=== PATIENT | female | born 1935 | race Caucasian/White ===

== ENCOUNTER → 2020-07-10 13:22 | Outpatient (BNVA) | payer BC, SELFPAY | PROVIDERS: PCP Internal Medicine; Referring Provider Internal Medicine; Visit Provider Internal Medicine | DX: Z76.89 Persons encountering health services in other specified circumstances (principal) ==

== ENCOUNTER → 2020-09-03 10:24 | Outpatient (BNVA) | payer BC, SELFPAY | PROVIDERS: PCP Internal Medicine; Visit Provider Internal Medicine | DX: Z76.89 Persons encountering health services in other specified circumstances (principal) ==

== ENCOUNTER → 2020-09-17 15:01 | Outpatient (BNVA) | payer BC, SELFPAY | PROVIDERS: PCP Internal Medicine; Visit Provider Internal Medicine ==

== ENCOUNTER 2020-09-21 10:13 | Outpatient (REF) | payer BC, SELFPAY ==
[2020-09-21 12:20] LABS: Alanine Aminotransferase 20 U/L (0-31); Albumin Level 3.6 g/dL (3.5-5.0); Alkaline Phosphatase 49 U/L (39-117); Anion Gap 15 (12-20); Aspartate Amino Transferase 25 U/L (5-31); Bilirubin Total 0.5 mg/dL (0.0-1.0); Blood Urea Nitrogen 24 mg/dL (9-16); Calcium 8.5 mg/dL (8.4-10.2); Carbon Dioxide 21 mmol/L (22-29); Chloride 108 mmol/L (96-108); Estimated Glomerular Filt Rate 48; Glucose Random 111 mg/dL (60-115); Potassium 4.7 mmol/L (3.3-5.1); Sodium 139 mmol/L (135-145); Total Protein 6.1 g/dL (6.5-8.0)
[2020-09-26 09:32] LABS: Vitamin D 25-OH, D2 <4 ng/mL; Vitamin D 25-OH, D3 58 ng/mL; Vitamin D 25-OH, Total 58 ng/mL (30-100)
== END 2020-09-21 10:14 | disposition home or self-care (01) ==
LOC: HO.LAB 10:13
PROVIDERS: PCP Internal Medicine; Visit Provider Student in an Organized Health Care Education/Training Program
DX: M81.0 Age-related osteoporosis without current pathological fracture (principal); M89.49 Other hypertrophic osteoarthropathy, multiple sites; Z88.8 Allergy status to other drugs, medicaments and biological substances; Z88.0 Allergy status to penicillin; Z88.2 Allergy status to sulfonamides; Z87.891 Personal history of nicotine dependence; Z79.899 Other long term (current) drug therapy
CPT/HCPCS: 20610; 36415; 80053; 82306

== ENCOUNTER 2020-11-13 11:14 | Outpatient (REF) | payer BC, SELFPAY ==
[2020-11-13 14:04] LABS: Hematocrit 30.6 % (37-47); Mean Corpuscular HGB Conc 32.7 g/dl (31.0-35.0); Mean Corpuscular Hemoglobin 30.3 pg (27.0-33.0); Mean Corpuscular Volume 92.7 fL (80-98); Platelet Count 283 X10*3/uL (160-400); Red Cell Distribution Width 13.7 % (11.0-16.0); White Blood Count 6.5 X10*3/uL (4.8-10.8)
[2020-11-13 15:01] LABS: Alanine Aminotransferase 20 U/L (0-31); Albumin Level 3.9 g/dL (3.5-5.0); Alkaline Phosphatase 52 U/L (39-117); Anion Gap 15 (12-20); Aspartate Amino Transferase 24 U/L (5-31); Bilirubin Direct < 0.2 mg/dL (0.0-0.5); Bilirubin Total 0.3 mg/dL (0.0-1.0); Blood Urea Nitrogen 26 mg/dL (9-16); Calcium 8.6 mg/dL (8.4-10.2); Carbon Dioxide 22 mmol/L (22-29); Chloride 106 mmol/L (96-108); Estimated Glomerular Filt Rate 50; Glucose Random 103 mg/dL (60-115); Potassium 4.7 mmol/L (3.3-5.1); Sodium 138 mmol/L (135-145); Total Protein 6.4 g/dL (6.5-8.0)
[2020-11-13 15:12] LABS: Thyroid Stimulating Hormone 1.55 uIU/mL (0.32-4.0)
== END 2020-11-13 11:15 | disposition home or self-care (01) ==
LOC: HO.10HDL 11:14
PROVIDERS: Visit Provider Internal Medicine
DX: I10 Essential (primary) hypertension (principal)
CPT/HCPCS: 36415; 80048; 80076; 84443; 85027

== ENCOUNTER 2020-11-22 08:12 | Inpatient (IN) | payer BC, SELFPAY ==
[2020-11-22] VITALS (11 sets, daily range): BP systolic 97–129; BP diastolic 28–61; PULSE 76–91; RESP 15–28; TEMP 36.5–36.8; O2SAT 86–100; BMI 33.3
--- NOTE | 2020-11-22 | ECG_ITS ---
Test Reason : CHEST PAIN Blood Pressure : / mmHG Vent. Rate : 091 BPM Atrial Rate : 091 BPM P-R Int : 200 ms QRS Dur : 118 ms QT Int : 374 ms P-R-T Axes : 046 -20 150 degrees QTc Int : 460 ms Normal sinus rhythm with sinus arrhythmia Septal infarct , age undetermined Marked ST abnormality, possible inferolateral subendocardial injury Abnormal ECG No previous ECGs available Referred By: Mayda Flynn Electronically Signed By:OLMAN ELMORE MD
--- NOTE | ~2020-11-22 | CT_ITS ---
EXAMINATION: CT ANGIOGRAM OF THE CHEST WITH AND WITHOUT CONTRAST (CT PULMONARY ANGIOGRAM FOR PE) CLINICAL INFORMATION: Reason for Exam chest pain radiating to back/sob/miner/lower extremity edema COMPARISON: None TECHNIQUE: Prior to contrast administration, noncontrast localization images were obtained. Subsequently, multidetector volumetric imaging was performed from the thoracic inlet to below the diaphragms following the administration of 80 mL Omnipaque 350 intravenous contrast. No contrast reaction reported Sagittal, coronal, and MIP oblique sagittal reformatted images were obtained on the CT workstation, uploaded to PACS, and reviewed. This CT examination was performed using dose optimization techniques as appropriate, variously including the following: *Automated exposure control *Adjustment of mA and/or kV according to patient size (this includes techniques or standardized protocols for targeted exams where dose is matched to indication/reason for exam; i.e. extremities or head) *Use of iterative reconstruction technique Total exam dose-length product 420 mGy-cm FINDINGS: QUALITY OF STUDY/CONTRAST BOLUS: Satisfactory. PULMONARY ARTERIES: No central or segmental pulmonary emboli. THORACIC AORTA: No aneurysm or dissection. LUNG: There is a patchy opacity left upper lobe and bilateral dependent lower lobes likely infiltrate and/or atelectasis. PLEURA: There are small bilateral pleural effusions. MEDIASTINUM: The heart size and the great vessels are normal caliber. No abnormal size mediastinal lymph nodes. The central trachea and the bronchi widely patent. No pericardial effusion seen. No evidence of septal bowing or right heart strain. CHEST WALL/AXILLA: No axillary or internal mammary lymphadenopathy. OSSEOUS STRUCTURES: There are degenerative disc changes at T7-T8 disc level with calcified disc. Mild compression deformities T7, T8 and augmented T12 vertebra for compression fractures are noted. No lytic process seen. UPPER ABDOMEN: Visualized liver, spleen, mildly distended gallbladder and spleen are unremarkable. There is a radiopaque gravel in the dependent portion. No reflux of contrast into the hepatic veins to suggest elevated right heart pressures. CT/CT angio chest PE protocol IMPRESSION: No evidence of PE. No evidence aortic dissection or aneurysm. Bilateral small pleural effusion with underlying atelectasis/infiltrate. There is a developing left upper lobe small infiltrate as well. VTE: negative
--- NOTE | ~2020-11-22 | XR_ITS ---
EXAMINATION: XR CHEST CLINICAL INFORMATION: Dyspnea COMPARISON: 09/18/2012 TECHNIQUE: Frontal view of the chest was obtained. FINDINGS: Lung volumes are low. Streaky opacities are seen bilaterally. Patchy left basilar opacity. No pleural effusion or pneumothorax. The cardiomediastinal silhouette is within normal limits for this technique. XR/XR chest 1V IMPRESSION: Lung volumes are low which limits the evaluation. Streaky bilateral opacities are nonspecific and may represent atelectasis, although a small airways process could have this appearance. There is no dense consolidation.
--- NOTE | 2020-11-22 09:47 | ECG_ITS ---
Test Reason : DIFF BREATHING Blood Pressure : / mmHG Vent. Rate : 088 BPM Atrial Rate : 088 BPM P-R Int : 184 ms QRS Dur : 110 ms QT Int : 380 ms P-R-T Axes : 030 -12 044 degrees QTc Int : 459 ms Normal sinus rhythm Nonspecific ST abnormality Abnormal ECG When compared with ECG of 16-DEC-2017 08:29, No significant change was found Referred By: Generic ED Physician Electronically Signed By:Yousif Palacios
[2020-11-22 10:04] LABS: MANUAL DIFF FLAG NO
[2020-11-22 10:06] LABS: Basophils Percent Auto 0.5 % (0-2); Eosinophils Absolute Auto 0.2 X10*3/uL (0.0-0.4); Eosinophils Percent Auto 3.2 % (0-4); Hematocrit 26.7 % (37-47); Hemoglobin 8.9 g/dl (12.0-16.0); Imm Gran Abs Auto 0.02 X10*3/uL (0.00-0.03); Imm Gran Pct Auto 0.3 % (0.0-0.4); Lymphocytes Percent Auto 13.1 % (20-40); Mean Corpuscular HGB Conc 33.3 g/dl (31.0-35.0); Mean Corpuscular Volume 89.9 fL (80-98); Mean Platelet Volume 9.7 fL (9.4-12.3); Monocytes Absolute Auto 0.7 X10*3/uL (0.1-1.2); Monocytes Percent Auto 9.6 % (2-11); Neutrophils Absolute Auto 5.6 X10*3/uL (2.0-8.3); Neutrophils Percent Auto 73.3 % (45-73); Platelet Count 285 X10*3/uL (160-400); Red Blood Count 2.97 X10*6/uL (4.20-5.50); Red Cell Distribution Width 13.1 % (11.0-16.0); White Blood Count 7.6 X10*3/uL (4.8-10.8)
[2020-11-22 10:19] LABS: INTERNATIONAL NORM RATIO 1.1 (0.9-1.1); Prothrombin Time 13.4 SEC (10.8-13.0)
[2020-11-22 10:38] LABS: Alanine Aminotransferase 21 U/L (0-31); Albumin Level 3.5 g/dL (3.5-5.0); Alkaline Phosphatase 66 U/L (39-117); Anion Gap 14 (12-20); Aspartate Amino Transferase 29 U/L (5-31); Bilirubin Direct 0.3 mg/dL (0.0-0.5); Bilirubin Total 0.5 mg/dL (0.0-1.0); Blood Urea Nitrogen 15 mg/dL (9-16); Calcium 7.7 mg/dL (8.4-10.2); Carbon Dioxide 23 mmol/L (22-29); Chloride 96 mmol/L (96-108); Creatinine Clr Calc Pharmacy 56.8; Estimated Glomerular Filt Rate > 60; Glucose Random 128 mg/dL (60-115); Magnesium 2.1 mg/dL (1.6-2.6); Potassium 4.8 mmol/L (3.3-5.1); Sodium 128 mmol/L (135-145); Total Protein 5.7 g/dL (6.5-8.0)
--- NOTE | 2020-11-22 10:52 | PC.NURSE ---
[facility] NUMBER IF ANY QUESTIONS OR UPDATES
[2020-11-22 10:54] LABS: B Type Natriuretic Peptide 1562 pg/mL (<100); Troponin-I High Sensitivity 2023.3 ng/L (<3.5-17.0)
[2020-11-22 11:05] LABS: Influenza A PCR NEGATIVE (Negative); Influenza B PCR NEGATIVE (Negative); Resp Syncy Virus RNA Qual PCR NEGATIVE (Negative); SARS COV2 PCR INHOUSE NEGATIVE (Negative)
--- NOTE | 2020-11-22 11:34 | ED_ITS ---
HPI - SOB/Dyspnea General Chief Complaint: Dyspnea Stated Complaint: difficulty breathing Time Seen by Provider: 11/22/20 09:29 Source: patient Mode of arrival: ambulatory Limitations: other (Poor historian) History of Present Illness HPI Narrative: 85-year-old female with a past medical history of benign essential hypertension, asthma/COPD, laryngitis, allergic rhinitis, osteoporosis and spinal stenosis who is status post lumbar spinal surgery performed by Dr.Frederik Munguia at [facility] on 11/16/2020 presenting to the ED with complaints shortness of breath, dyspnea on exertion, orthopnea with ass ociated productive cough with clear color sputum, body aches, chills, intermittent headaches and midsternal chest pain where she reports it is tight in sensation for the past few days worse today. Patient cannot specify if all of the symptoms she has at this time started prior or after her surgery on Thursday. Patient denies any fevers, dizziness, lightheadedness, current headache at this time, neck pain/stiffness, runny nose/nasal congestion, sore throat, palpitations, nausea/vomiting, abdominal pain, diarrhea or constipation or any other symptoms complaints or concerns at this time. Denies recent travel or sick contacts. MD elicited complaint: shortness of breath, cough, pain with inspiration and chest pain Pertinent past history: COPD and asthma Onset (ago): unknown Context: other (Recent lumbar surgery at [facility] on 11/16/2020) Timing: constant and progressively worsening Severity: severe Exacerbating factors: lying flat, exertion, movement, coughing, inspiration, talking and deep breaths Relieving factors: nothing Known history of: COPD and asthma Associated symptoms: chest pain, pain with inspiration, cough, sputum production, orthopnea, chest congestion and other Treatment prior to arrival: none Related Data Home oxygen amount: none Home Medications Medication Instructions Recorded Confirmed Lactobacillus acidophilus 5 mg PO DAILY 07/10/20 11/22/20 amitriptyline 10 mg tablet 10 mg PO BEDTIME 07/10/20 11/22/20 anastrozole 1 mg tablet 1 mg PO DAILY 07/10/20 11/22/20 calcium carbonate 600 mg calcium 600 mg PO DAILY@1700 07/10/20 11/22/20 (1,500 mg) tablet cholecalciferol (vitamin D3) 25 25 mcg PO DAILY 07/10/20 11/22/20 mcg (1,000 unit) capsule cod liver oil 1 cap PO DAILY 07/10/20 11/22/20 diphenhydramine HCl 25 mg tablet 25 mg PO BEDTIME PRN 07/10/20 11/22/20 ferrous sulfate 325 mg (65 mg 325 mg PO DAILY 07/10/20 11/22/20 iron) tablet fexofenadine 180 mg tablet 180 mg PO BEDTIME 07/10/20 11/22/20 fluticasone propionate 220 2 puff INHALATION BID 07/10/20 11/22/20 mcg/actuation HFA aerosol inhaler lysine 1,000 mg tablet 1,000 mg PO DAILY@1700 tab 07/10/20 11/22/20 metoprolol tartrate 25 mg tablet 25 mg PO BID 07/10/20 11/22/20 omeprazole 20 mg capsule,delayed 20 mg PO DAILY 07/10/20 11/22/20 release pyridoxine (vitamin B6) 100 mg 100 mg PO DAILY tab 07/10/20 11/22/20 tablet simvastatin 10 mg tablet 10 mg PO BEDTIME 07/10/20 11/22/20 vitamin E 200 unit capsule 400 unit PO DAILY cap 07/10/20 11/22/20 TUMERIC 1,000 mg PO DAILY@1700 11/22/20 11/22/20 alendronate 70 mg PO MO@0630 11/22/20 11/22/20 ascorbic acid (vitamin C) 1 g PO DAILY@1200 11/22/20 11/22/20 cyanocobalamin (vitamin B-12) 1,000 mcg PO DAILY 11/22/20 11/22/20 docusate sodium 100 mg PO BID 11/22/20 11/22/20 cisyjahr-gcwoe-[id number]-CF borate 1 tab PO BID 11/22/20 11/22/20 [[facility]] vitamin A-vitamin C-vit E-min 2 tab PO DAILY 11/22/20 11/22/20 [Ocuvite] Previous Rx's Medication Instructions Recorded lisinopril 5 mg tablet 5 mg PO DAILY #90 tab 07/13/20 nifedipine 30 mg tablet,extended 30 mg PO DAILY #60 tab 08/02/20 release cefaclor 250 mg capsule 250 mg PO BEDTIME #30 cap 11/15/20 Allergies Allergy/AdvReac Type Severity Reaction Status Date / Time acetaminophen Allergy Unknown Nausea and Verified 11/18/20 21:19 [Tylenol-Codeine] Vomiting amoxicillin [AMOXICILLIN] Allergy Unknown RASH Verified 11/18/20 21:19 cephalexin Allergy Unknown Nausea Verified 11/18/20 21:19 Erythromycin Allergy Unknown Nausea and Verified 11/18/20 21:19 Vomiting meloxicam Allergy Unknown Nausea and Verified 11/18/20 21:19 Vomiting meperidine [Demerol] Allergy Unknown Nausea and Verified 11/18/20 21:19 Vomiting nitrofurantoin Allergy Unknown UNK Verified 11/18/20 21:19 [From MACROBID] Penicillins [PENICILLINS] Allergy Unknown UNK Verified 11/18/20 21:19 Sulfa (Sulfonamide Allergy Unknown RASH Verified 11/18/20 21:19 Antibiotics) [SULFA(SULFONAMIDE ANTIBIOTICS)] tramadol Allergy Unknown Nausea and Verified 11/18/20 21:19 Vomiting codeine [CODEINE] AdvReac Unknown NAUSEA Verified 11/18/20 21:19 Review of Systems Review of Systems: Constitutional : + Chills, + Fatigue, No Weight loss, No Fever, No Night Sweats, No Malaise ENT/Mouth : No Hearing loss, No Ear Pain, No Nasal Congestion, No Sinus Pain, No Hoarseness, No sore throat, No Rhinorrhea, No Swallowing Difficulty Eyes: No Eye Pain, No Swelling, No Redness, No Foreign Body, No Discharge, No Vision Changes Cardiovascular : + Midsternal chest tighness, + SOB, + Dyspnea on Exertion, + Orthopnea, + Edema, + extremity swelling, No Palpitations Respiratory : + Cough, + Sputum, + Wheezing, + Dyspnea Gastrointestinal : No Nausea, No Vomiting, No Diarrhea, No abdominal Pain, No Hematochezia, No Melena Genitourinary : No irregular bleeding, No Dysuria, No Urinary Frequency, No Hematuria, No Urinary Incontinence, No Urgency, No Flank Pain, No Urinary Flow Changes, No Hesitancy Musculoskeletal : No joint pain, No Myalgias, No Joint Swelling Skin : No Skin Lesions, No rash Neuro : + Intermittent headaches, No Weakness, No Numbness, No Paresthesias, No Loss of Consciousness, No Dizziness, No Headache Psych : No Anxiety/Panic, No Depression, No SI/HI/AH/VH Heme/Lymph: No Bruising, No Bleeding,No Lymphadenopathy Endocrine : No Polyuria, No Polydipsia, No Temperature Intolerance Yes all other systems are reviewed and are negative [facility] Past Medical History Attestation statement: The following information was validated with the patient. Medical History Acute laryngitis Allergic rhinitis Asthma Benign essential HTN Osteoporosis Primary osteoarthritis involving multiple joints Surgical History History of cataract surgery History of D&C History of kyphoplasty Family History Family History Father Hypertension Mother Thyroid cancer Sister Breast cancer Social History Social History Alcohol intake: current Alcohol intake frequency: does not drink Alcohol type: wine Smoking Status: Former smoker Use of substances other than those prescribed or required for medical reasons: No Advance Directives: No Advance Directives Information Provided: No Physical Exam Vital Signs: Vital Signs: Last Vital Signs Temp 98.3 F 11/22/20 09:22 Pulse 77 11/22/20 16:44 Resp 21 H 11/22/20 16:44 BP 105/37 L 11/22/20 16:44 Pulse Ox 94 11/22/20 16:44 Body Mass Index 33.3 vital signs have been reviewed as normal and appeared to be correct. Blood pressure normal. Heart rate normal. Respiration rate normal. Temperature normal. Oxygen saturation normal. Appearance: Alert. Oriented X3. + acute distress. Head: Normal external exam. Normocephalic. Atraumatic. Eyes: PERRLA. EOMI. Conjunctiva and sclera normal. Eyelids normal. ENT: Pharynx normal. Uvula midline. Moist mucous membranes. No trismus noted. No drooling noted. No muffled voice noted. Neck: Normal inspection. Neck supple. FROM. No adenopathy. Thyroid Normal. No me ningeal signs. No neck mass noted. CVS: Normal heart rate and rhythm. Heart sound normal. ? Aortic stenosis murmur on exam. Pulses normal throughout. Respiratory: + respiratory distress. Decreased breath sounds with inspiratory and expiratory wheezing throughout and accessory muscle usage noted. No rales/rhonchi noted. Patient reports pain with inspiration and expiration. Chest nontender. Abdomen: Soft and nontender. Bowel sounds normal in all 4 quadrants. No distention noted. No organomegaly noted. No visible injury noted. Back: Full range of motion noted. Skin: Skin warm and dry. Normal skin color. Normal skin turgor. No rashes/lesions/lacerations noted. Extremities: + b/l +3 lower extremity pitting edema. Extremities exhibit normal range of motion. Extremities nontender. Neuro: Oriented X 3. No motor deficit. No sensory deficit. Reflexes normal. Course Course Course Narrative: 9:50am - 85-year-old female presenting to the ED with complaints of midsternal chest pa in/tightness, shortness of breath, dyspnea on exertion, orthopnea with associated productive cough with clear clutter sputum, body aches, chills and intermittent headaches for the past few days worse today. - on exam patient is alert and oriented x3. In acute respiratory distress. Vital signs are stable within normal limits. No focal neuro deficits are noted. Patient is neuro intact. CV RRR. Patient with moderate inspiratory and expiratory wheezing throughout with decreased breath sounds and reports pain with inspiration and expiration. Abdomen is soft and nontender. Bilateral lower extremity with +3 pitting edema. No calf tenderness is noted. Positive distal pulses to lower extremity. - Concern for PE vs Aortic dissection vs ACS vs CHF vs Viral syndrome/asthma/COPD exacerbation Plan: Labs, chest x-ray, EKG, CT of chest for PE, COVID/RSV/flu swab provide a breathing treatment and re-evaluate. Reevaluation(s) Reevaluation #1: - patient mild anemia or red blood cells 2.97. Hemoglobin 8.9. Hematocrit 26.7 - sodium 128. - glucose 128. - calcium 7.7. - troponin 2023.3 - BNP 1562 - negative COVID/RSV/flu swab. - EKG is normal sinus rhythm with ventricular rate of 88 with a normal NH interval with nonspecific ST abnormalities no acute ischemic changes are noted. Similar compared to prior EKG 12/16/2017 - chest x-ray revealed low lung volumes and streaky bilateral opacities are nonspecific and may represent atelectasis although a small airway process can have this appearance. No dense consolidation is noted. - awaiting CTA of chest for PE. - therefore due to elevated troponin and patient reporting chest pain/tightness 324 mg of aspirin ordered at this time with 4 mg of morphine and 4 mg of Zofran. Will re-evaluate after the CTA then consult with Cardiology for possible transfer versus admit. Patient understands agrees with this plan. Time: 11:10 Reevaluation #2: - CTA of chest for PE revealed bilateral small pleural effusion with underlying atelectasis/infiltrate. There is a developing left upper lobe small infiltrate as well. - Patient is meeting SIRS at this time although this is NOT sepsis, Sepsis is excluded patient's organ dysfunction is related to the patient's acute CHF/NSTEMI. Therefore at this time will obtain blood cultures and lactic acid and provide IV antibiotics although fluids will not be given due to her severe CHF. - will also place the patient on BiPAP, provided 40 mg of IV Lasix recommended by Dr. Palacios. - I also consulted with neurosurgeon at [facility] RICHARD Bender and Dr. Mohamud at [facility] and they reported that the patient can receive heparin at this time therefore I updated the laydown machine operator about this. And we will start the patient on heparin at this time. Time: 12:27 Reevaluation #3: - repeat troponin 1724 - repeat BNP 1988 - I just took the patient off the BiPAP due to she was requesting to take it off and she is doing much better. Her oxygen saturation is 92-94% on room air. - I consulted with laydown machine operator Dr. Palacios and he reported to continue the heparin drip and that the patient can now be admitted here due to the echo showed severe aortic stenosis - the nurses just placed a Nevarez catheter in the patient. - daughter was updated at this time. Will continue to monitor as patient is awaiting to be evaluated by Dr. Abreu for admission. Time: 16:28 Additional Reevaluation(s): Dr. Abreu reports that he wants to wait at least 1 hour after the patient has been off the BiPAP which will be at 05:30 to make sure that the patient is appropriate to be on the floor and not the ICU there f or sign-out to RICHARD Szymanski at this time pending admission to ICU versus intermediate care. MDM - SOB/Dyspnea Medical Records Attestation: I reviewed the patient's medical records. Lab Data Attestation: I reviewed the patient's lab results. Result diagrams: 11/22/20 15:27 11/22/20 09:51 Labs: Lab Results 11/22/20 11/22/20 11/22/20 Range/Units 09:51 09:51 09:52 WBC 7.6 (4.8-10.8) X10*3/uL RBC 2.97 L (4.20-5.50) X10*6/uL Hgb 8.9 L (12.0-16.0) g/dl Hct 26.7 L (37-47) % MCV 89.9 (80-98) fL MCH 30.0 (27.0-33.0) pg MCHC 33.3 (31.0-35.0) g/dl RDW 13.1 (11.0-16.0) % Plt Count 285 (160-400) X10*3/uL MPV 9.7 (9.4-12.3) fL Immature Gran % (Auto) 0.3 (0.0-0.4) % Neut % (Auto) 73.3 H (45-73) % Lymph % (Auto) 13.1 L (20-40) % [place] % (Auto) 9.6 (2-11) % Eos % (Auto) 3.2 (0-4) % Baso % (Auto) 0.5 (0-2) % Lymph # (Auto) 1.0 L (1.2-4.9) X10*3/uL [place] # (Auto) 0.7 (0.1-1.2) X10*3/uL Eos # (Auto) 0.2 (0.0-0.4) X10*3/uL Baso # (Auto) 0.0 (0.0-0.2) X10*3/uL Abs Immat Gran (auto) 0.02 (0.00-0.03) X10*3/uL Absolute Neuts (auto) 5.6 (2.0-8.3) X10*3/uL Absolute Nucleated RBC 0.000 (0.0-0.012) X10*3/uL Nucleated RBC % (auto) 0.0 (0.0-0.2) /100WBC PT 13.4 H (10.8-13.0) SEC INR 1.1 (0.9-1.1) Hold Blue Top SEE NOTE Sodium 128 L (135-145) mmol/L Potassium 4.8 (3.3-5.1) mmol/L Chloride 96 (96-108) mmol/L Carbon Dioxide 23 (22-29) mmol/L Anion Gap 14 (12-20) BUN 15 (9-16) mg/dL Creatinine 0.82 (0.5-1.4) mg/dL Estim Creat Clear Calc 56.8 Estimated GFR > 60 Random Glucose 128 H (60-115) mg/dL Calcium 7.7 L D (8.4-10.2) mg/dL Magnesium 2.1 (1.6-2.6) mg/dL Total Bilirubin 0.5 (0.0-1.0) mg/dL Direct Bilirubin 0.3 (0.0-0.5) mg/dL AST 29 (5-31) U/L ALT 21 (0-31) U/L Alkaline Phosphatase 66 D (39-117) U/L Troponin I High Sens (<3.5-17.0) ng/L B-Natriuretic Peptide (<100) pg/mL Total Protein 5.7 L (6.5-8.0) g/dL Albumin 3.5 (3.5-5.0) g/dL Urine Color Urine Appearance Urine pH (5.0-8.0) Ur Specific [place] (1.005-1.025) Urine Protein (NEG-TRACE) MG/DL Urine Glucose (UA) (NEG) MG/DL Urine Ketones (NEG) MG/DL Urine Blood (NEG) Urine Nitrite (NEG) Ur Leukocyte Esterase (NEG) Coronavirus (PCR) (Negative) Influenza Type A (PCR) (Negative) Influenza Type B (PCR) (Negative) RSV RNA Qual (PCR) (Negative) Blood Type Antibody Screen 11/22/20 11/22/20 11/22/20 Range/Units 09:52 09:54 10:13 WBC (4.8-10.8) X10*3/uL RBC (4.20-5.50) X10*6/uL Hgb (12.0-16.0) g/dl Hct (37-47) % MCV (80-98) fL MCH (27.0-33.0) pg MCHC (31.0-35.0) g/dl RDW (11.0-16.0) % Plt Count (160-400) X10*3/uL MPV (9.4-12.3) fL Immature Gran % (Auto) (0.0-0.4) % Neut % (Auto) (45-73) % Lymph % (Auto) (20-40) % [place] % (Auto) (2-11) % Eos % (Auto) (0-4) % Baso % (Auto) (0-2) % Lymph # (Auto) (1.2-4.9) X10*3/uL [place] # (Auto) (0.1-1.2) X10*3/uL Eos # (Auto) (0.0-0.4) X10*3/uL Baso # (Auto) (0.0-0.2) X10*3/uL Abs Immat Gran (auto) (0.00-0.03) X10*3/uL Absolute Neuts (auto) (2.0-8.3) X10*3/uL Absolute Nucleated RBC (0.0-0.012) X10*3/uL Nucleated RBC % (auto) (0.0-0.2) /100WBC PT (10.8-13.0) SEC INR (0.9-1.1) Hold Blue Top Sodium (135-145) mmol/L Potassium (3.3-5.1) mmol/L Chloride (96-108) mmol/L Carbon Dioxide (22-29) mmol/L Anion Gap (12-20) BUN (9-16) mg/dL Creatinine (0.5-1.4) mg/dL Estim Creat Clear Calc Estimated GFR Random Glucose (60-115) mg/dL Calcium (8.4-10.2) mg/dL Magnesium (1.6-2.6) mg/dL Total Bilirubin (0.0-1.0) mg/dL Direct Bilirubin (0.0-0.5) mg/dL AST (5-31) U/L ALT (0-31) U/L Alkaline Phosphatase (39-117) U/L Troponin I High Sens 2023.3 H (<3.5-17.0) ng/L B-Natriuretic Peptide 1562 H Cancelled (<100) pg/mL Total Protein (6.5-8.0) g/dL Albumin (3.5-5.0) g/dL Urine Color Urine Appearance Urine pH (5.0-8.0) Ur Specific [place] (1.005-1.025) Urine Protein (NEG-TRACE) MG/DL Urine Glucose (UA) (NEG) MG/DL Urine Ketones (NEG) MG/DL Urine Blood (NEG) Urine Nitrite (NEG) Ur Leukocyte Esterase (NEG) Coronavirus (PCR) NEGATIVE (Negative) Influenza Type A (PCR) NEGATIVE (Negative) Influenza Type B (PCR) NEGATIVE (Negative) RSV RNA Qual (PCR) NEGATIVE (Negative) Blood Type Antibody Screen 11/22/20 11/22/20 11/22/20 Range/Units 11:51 14:44 15:27 WBC 7.4 (4.8-10.8) X10*3/uL RBC 2.84 L (4.20-5.50) X10*6/uL Hgb 8.5 L (12.0-16.0) g/dl Hct 25.7 L (37-47) % MCV 90.5 (80-98) fL MCH 29.9 (27.0-33.0) pg MCHC 33.1 (31.0-35.0) g/dl RDW 13.1 (11.0-16.0) % Plt Count 193 D (160-400) X10*3/uL MPV 9.6 (9.4-12.3) fL Immature Gran % (Auto) (0.0-0.4) % Neut % (Auto) (45-73) % Lymph % (Auto) (20-40) % [place] % (Auto) (2-11) % Eos % (Auto) (0-4) % Baso % (Auto) (0-2) % Lymph # (Auto) (1.2-4.9) X10*3/uL [place] # (Auto) (0.1-1.2) X10*3/uL Eos # (Auto) (0.0-0.4) X10*3/uL Baso # (Auto) (0.0-0.2) X10*3/uL Abs Immat Gran (auto) (0.00-0.03) X10*3/uL Absolute Neuts (auto) (2.0-8.3) X10*3/uL Absolute Nucleated RBC 0.000 (0.0-0.012) X10*3/uL Nucleated RBC % (auto) 0.0 (0.0-0.2) /100WBC PT (10.8-13.0) SEC INR (0.9-1.1) Hold Blue Top Sodium (135-145) mmol/L Potassium (3.3-5.1) mmol/L Chloride (96-108) mmol/L Carbon Dioxide (22-29) mmol/L Anion Gap (12-20) BUN (9-16) mg/dL Creatinine (0.5-1.4) mg/dL Estim Creat Clear Calc Estimated GFR Random Glucose (60-115) mg/dL Calcium (8.4-10.2) mg/dL Magnesium (1.6-2.6) mg/dL Total Bilirubin (0.0-1.0) mg/dL Direct Bilirubin (0.0-0.5) mg/dL AST (5-31) U/L ALT (0-31) U/L Alkaline Phosphatase (39-117) U/L Troponin I High Sens (<3.5-17.0) ng/L B-Natriuretic Peptide (<100) pg/mL Total Protein (6.5-8.0) g/dL Albumin (3.5-5.0) g/dL Urine Color YELLOW Urine Appearance CLEAR Urine pH 5.5 (5.0-8.0) Ur Specific [place] 1.010 (1.005-1.025) Urine Protein NEG (NEG-TRACE) MG/DL Urine Glucose (UA) NEG (NEG) MG/DL Urine Ketones NEG (NEG) MG/DL Urine Blood NEG (NEG) Urine Nitrite NEG (NEG) Ur Leukocyte Esterase NEG (NEG) Coronavirus (PCR) (Negative) Influenza Type A (PCR) (Negative) Influenza Type B (PCR) (Negative) RSV RNA Qual (PCR) (Negative) Blood Type A Positive Antibody Screen NEGATIVE 11/22/20 11/22/20 Range/Units 15:27 15:27 WBC (4.8-10.8) X10*3/uL RBC (4.20-5.50) X10*6/uL Hgb (12.0-16.0) g/dl Hct (37-47) % MCV (80-98) fL MCH (27.0-33.0) pg MCHC (31.0-35.0) g/dl RDW (11.0-16.0) % Plt Count (160-400) X10*3/uL MPV (9.4-12.3) fL Immature Gran % (Auto) (0.0-0.4) % Neut % (Auto) (45-73) % Lymph % (Auto) (20-40) % [place] % (Auto) (2-11) % Eos % (Auto) (0-4) % Baso % (Auto) (0-2) % Lymph # (Auto) (1.2-4.9) X10*3/uL [place] # (Auto) (0.1-1.2) X10*3/uL Eos # (Auto) (0.0-0.4) X10*3/uL Baso # (Auto) (0.0-0.2) X10*3/uL Abs Immat Gran (auto) (0.00-0.03) X10*3/uL Absolute Neuts (auto) (2.0-8.3) X10*3/uL Absolute Nucleated RBC (0.0-0.012) X10*3/uL Nucleated RBC % (auto) (0.0-0.2) /100WBC PT (10.8-13.0) SEC INR (0.9-1.1) Hold Blue Top Sodium (135-145) mmol/L Potassium (3.3-5.1) mmol/L Chloride (96-108) mmol/L Carbon Dioxide (22-29) mmol/L Anion Gap (12-20) BUN (9-16) mg/dL Creatinine (0.5-1.4) mg/dL Estim Creat Clear Calc Estimated GFR Random Glucose (60-115) mg/dL Calcium (8.4-10.2) mg/dL Magnesium (1.6-2.6) mg/dL Total Bilirubin (0.0-1.0) mg/dL Direct Bilirubin (0.0-0.5) mg/dL AST (5-31) U/L ALT (0-31) U/L Alkaline Phosphatase (39-117) U/L Troponin I High Sens 1724.6 H (<3.5-17.0) ng/L B-Natriuretic Peptide 1989 H (<100) pg/mL Total Protein (6.5-8.0) g/dL Albumin (3.5-5.0) g/dL Urine Color Urine Appearance Urine pH (5.0-8.0) Ur Specific [place] (1.005-1.025) Urine Protein (NEG-TRACE) MG/DL Urine Glucose (UA) (NEG) MG/DL Urine Ketones (NEG) MG/DL Urine Blood (NEG) Urine Nitrite (NEG) Ur Leukocyte Esterase (NEG) Coronavirus (PCR) (Negative) Influenza Type A (PCR) (Negative) Influenza Type B (PCR) (Negative) RSV RNA Qual (PCR) (Negative) Blood Type Antibody Screen Imaging Data Chest x-ray: Attestation: I personally reviewed and interpreted this imaging study as follows: Radiologist's impression: FINDINGS: Lung volumes are low. Streaky opacities are seen bilaterally. Patchy left basilar opacity. No pleural effusion or pneumothorax. The cardiomediastinal silhouette is within normal limits for this technique. XR/XR chest 1V IMPRESSION: Lung volumes are low which limits the evaluation. Streaky bilateral opacities are nonspecific and may represent atelectasis, although a small airways process could have this appearance. There is no dense consolidation. CTA chest for PE: Attestation: I personally reviewed and interpreted this imaging study as follows: Radiologist's impression: FINDINGS: QUALITY OF STUDY/CONTRAST BOLUS: Satisfactory. PULMONARY ARTERIES: No central or segmental pulmonary emboli. THORACIC AORTA: No aneurysm or dissection. LUNG: There is a patchy opacity left upper lobe and bilateral dependent lower lobes likely infiltrate and/or atelectasis. PLEURA: There are small bilateral pleural effusions. MEDIASTINUM: The heart size and the great vessels are normal caliber. No abnormal size mediastinal lymph nodes. The central trachea and the bronchi widely patent. No pericardial effusion seen. No evidence of septal bowing or right heart strain. CHEST WALL/AXILLA: No axillary or internal mammary lymphadenopathy. OSSEOUS STRUCTURES: There are degenerative disc changes at T7-T8 disc level with calcified disc. Mild compression deformities T7, T8 and augmented T12 vertebra for compression fractures are noted. No lytic process seen. UPPER ABDOMEN: Visualized liver, spleen, mildly distended gallbladder and spleen are unremarkable. There is a radiopaque gravel in the dependent portion. No reflux of contrast into the hepatic veins to suggest elevated right heart pressures. CT/CT angio chest PE protocol IMPRESSION: No evidence of PE. No evidence aortic dissection or aneurysm. Bilateral small pleural effusion with underlying atelectasis/infiltrate. There is a developing left upper lobe small infiltrate as well. VTE: negative Transthoracic echocardiogram: Attestation: I personally reviewed and interpreted this imaging study as follows: Radiologist's impression: Conclusions: - Normal left ventricular size and systolic function. - Elevated filling pressures. - The basal inferior segment is akinetic. - Normal right ventricular cavity size and systolic function. - There is moderate to severe aortic valve stenosis. - There is moderate to severe mitral valve regurgitation. - Mild pulmonary hypertension is present. ECG Data Attestation: I personally reviewed and interpreted this ECG as follows: ECG interpretation date: 11/22/20 ECG interpretation time: 10:10 Interpretation: - EKG is normal sinus rhythm with ventricular rate of 88 with a normal NH interval with nonspecific ST abnormalities no acute ischemic changes are noted. Similar compared to prior EKG 12/16/2017 Critical Care Time Critical Care Time Critical Care Time: Yes Total Critical Care Time: 60 Attestation: I personally attest to this time spent taking care of the patient Discharge Plan Discharge Clinical Impression: Congestive heart failure, Non-ST elevation UT (NSTEMI), Aortic stenosis, severe, Severe mitral valve regurgitation, Pulmonary hypertension Prescriptions: No Action lisinopril 5 mg tablet 5 mg PO DAILY Qty: 90 RF: 1 nifedipine 30 mg tablet extended release 30 mg PO DAILY Qty: 60 RF: 2 cefaclor 250 mg capsule 250 mg PO BEDTIME Qty: 30 RF: 0 docusate sodium 100 mg Capsule 100 mg PO BID RF: 0 alendronate 70 mg tablet 70 mg PO MO@0630 RF: 0 TUMERIC 1,000 mg PO DAILY@1700 RF: 0 cyanocobalamin (vitamin B-12) 1,000 mcg Tablet 1,000 mcg PO DAILY RF: 0 ascorbic acid (vitamin C) 1,000 mg Tablet 1 g PO DAILY@1200 RF: 0 Ocuvite Tablet 2 tab PO DAILY RF: 0 [facility] 750 mg-100 mg- 1.65 mg-108 mg Tablet 1 tab PO BID RF: 0 metoprolol tartrate 25 mg tablet 25 mg PO BID RF: 0 Flovent HFA 220 mcg/actuation HFA aerosol inhaler 2 puff inhalation BID RF: 0 amitriptyline 10 mg tablet 10 mg PO BEDTIME RF: 0 simvastatin 10 mg tablet 10 mg PO BEDTIME RF: 0 anastrozole 1 mg tablet 1 mg PO DAILY RF: 0 Lactobacillus acidophilus [Acidophilus] Capsule 5 mg PO DAILY RF: 0 calcium carbonate [Calcium 600] 600 mg calcium (1,500 mg) tablet 600 mg PO DAILY@1700 RF: 0 cod liver oil Capsule 1 cap PO DAILY RF: 0 diphenhydramine HCl [Allergy (diphenhydramine)] 25 mg tablet 25 mg PO BEDTIME PRN (Reason: Allergic Symptoms) RF: 0 fexofenadine 180 mg tablet 180 mg PO BEDTIME RF: 0 ferrous sulfate 325 mg (65 mg iron) tablet 325 mg PO DAILY RF: 0 lysine 1,000 mg tablet 1,000 mg PO DAILY@1700 RF: 0 omeprazole 20 mg capsule,delayed release(DR/EC) 20 mg PO DAILY RF: 0 pyridoxine (vitamin B6) 100 mg tablet 100 mg PO DAILY RF: 0 cholecalciferol (vitamin D3) 25 mcg (1,000 unit) capsule 25 mcg PO DAILY RF: 0 vitamin E 200 unit capsule 400 unit PO DAILY RF: 0
[2020-11-22] MEDS: ondansetron HCL 4 MG/2 ML VIAL IVPUSH (11:42)
[2020-11-22] MEDS: Morphine Sulfate 4 MG/ML CARTRIDGE IVPUSH (11:42)
[2020-11-22] MEDS: Aspirin 81 MG TAB.CHEW 324 MG PO (11:42)
[2020-11-22] MEDS: Albuterol Sulfate (0.083%) 2.5 MG/3 ML VIAL.NEB 10 MG INHALE (11:44)
--- NOTE | 2020-11-22 11:48 | PC.NURSE ---
pt assisted to the bathroom, while in the bathroom got very sob/expertory wheezing wheezing, reported slightly lightheaded, when back to bed pt sating at 86% on room air, put put on 2l via nasal cannual, now sating at 97%. ns on the monitor
[2020-11-22 12:00] LABS: Glucose Urine UA NEG (NEG); Leukocyte Esterase Urine NEG (NEG); Nitrite Urine NEG (NEG); PH 5.5 (5.0-8.0); Urine Blood NEG (NEG); Urine Ketones NEG (NEG); Urine Protein NEG (NEG-TRACE)
[2020-11-22 12:01] LABS: Appearance Urine CLEAR; Color Urine YELLOW
--- NOTE | 2020-11-22 12:12 | CA_ITS ---
Transthoracic Echocardiogram Patient (Last, First, Middle): Beena Davison, Gender: Female Date of : 1935 Age: 85 Procedure Date: 11/22/2020 Procedure Type: Transthoracic Echocardiogram Location: ER Height: 165.1 cm Weight: 89.36 kg BSA: 1.97 m2 Heart Rate: bpm BP: 135 / 64 mmHg Spring Winder: CHUY Referring MD: Vibha BLANCA Symptoms: pt c chest pain/sob Dr. Palacios requested Conclusions: - Normal left ventricular size and systolic function. - Elevated filling pressures. - The basal inferior segment is akinetic. - Normal right ventricular cavity size and systolic function. - There is moderate to severe aortic valve stenosis. - There is moderate to severe mitral valve regurgitation. - Mild pulmonary hypertension is present. Findings Left Ventricle Normal left ventricular size and systolic function. There is mildly increased left ventricular wall thickness. The visually estimated ejection fraction is between 55-60%. There is evidence of regional wall motion abnormalities. Abnormal diastolic function is noted. Spectral Doppler is indicative of a pseudonormal filling pattern. Elevated filling pressures. There is moderate septal asymmetric hypertrophy. Wall Motion Rest Echo Findings The basal inferior segment is akinetic. Right Ventricle Normal right ventricular cavity size and systolic function. Atria The left atrium is mildly dilated. The right atrium is normal in size. Aortic Valve There is severe calcification of the aortic valve. There is severe thickening of the aortic valve. There is moderate to severe aortic valve stenosis. The peak aortic velocity is 3.66 m/s. The mean gradient is 34 mmHg. The aortic valve area is 1.16 cm2. There is mild to moderate aortic valve regurgitation. Mitral Valve There is mild anterior and posterior mitral leaflet thickening. The posterior mitral leaflet has restricted mobility. There is moderate to severe mitral valve regurgitation. The mitral regurgitation jet is directed posteriorly. There is no mitral valve stenosis. Pulmonic Valve Normal pulmonic valve structure and function. There is trace pulmonic valve regurgitation. Tricuspid Valve Normal tricuspid valve structure and function. There is mild tricuspid valve regurgitation. Normal right atrial pressure. Mild pulmonary hypertension is present. Great Vessels All visible segments of the aorta are normal in size. The visualized portions of the pulmonary artery and branches are normal. Venous The inferior vena cava is normal in size and collapses greater than 50% with inspiration. Pericardium/Pleural There is no evidence of pericardial effusion. Prior Study Comparison Changes noted compared to prior study dated: 06/12/2017. Basal inferior akinesis, moderate to severe and MR. Measurements 2D Linear Measurements IVSd: 1.37 0.6-0.9/0.6-1.0 cm LVIDd: 5.09 3.9-5.3/4.2-5.9 cm LVIDd Index: 2.58 2.4-3.2/2.2-3.1 cm/m2 LVIDs: 4.20 2.0-3.6 cm LVPWd: 0.95 0.7-1.1 cm Ao Root: 2.60 2.1-3.5 cm LA Diam: 3.10 2.7-3.8/3.0-4.0 cm LAIDs Index: 1.57 1.5-2.3 cm/m2 LV Mass: 285.83 67-162/88-224 g LV Mass Index: 145.09 43-95/49-115 g/m2 LVOT Diam: 2.10 3.0+(-)1.3 cm 2D Systolic Function EF 4C: 57.30 >55% EF 2C: 54.80 >55% EF BiP: 55.90 >55% Mitral Valve MV Pk E: 1.19 MV PK A: 1.00 MV Decel Time: 119.00 E/A: 1.20 E'Lateral: 7.51 E'Medial: 5.44 E/E' Med: 21.90 E/E' Lat: 15.80 PHT: 35.00 MVA PHT: 6.29 Decel [place]: 9.97 Aortic Valve AoV Pk Tanvir: 3.66 AoV Mn Tanvir: 2.75 AoV VTI: 0.81 AoV Pk Grad: 54.00 Aov Mn Grad: 34.00 SIDRA Cont.VTI: 1.16 LVOT LVOT Pk Tanvir: 1.17 LVOT Mn Tanvir: 0.84 LVOT VTI: 0.27 LVOT Pk Grad: 5.00 LVOT Mn Grad: 3.00 LVOT Diam: 2.10 LVOT Area: 3.46 Diastolic Function MV Pk E: 1.19 MV Pk A: 1.00 E/A: 1.20 E'Medial: 5.44 E/E' Med: 21.90 E' Laterial: 7.51 E/E' Lat: 15.80 Tricuspid Valve TR Pk Tanvir: 3.09 TR Pk Grad: 38.00 RVSP: 41.00 Great Vessels Aorta Ao Root-2D: 2.60 2.0-3.7 cm Ao Asc: 3.10 2.1-3.4 cm Updated in Other Vendor System with Status of Final Yousif Palacios MD electronically signed on 11/22/2020 4:27:04 PM with status of Final
[2020-11-22] MEDS: Furosemide 40 MG/4 ML VIAL IVPUSH (12:53)
[2020-11-22] MEDS: Sodium Ferric Gluconat/Sucrose 125 MG in 0.9 % Sodium Chloride 100 ML 110 MG IV (13:26)
[2020-11-22] MEDS: Heparin Sodium,Porcine 5,000 UNIT/ML VIAL 4000 UNIT IVPUSH (13:50)
[2020-11-22] MEDS: Heparin Sodium,Porcine/1/2NS 25,000 UNIT/250 ML IV.SOLN 12.7 UNIT IVCONT (13:54)
--- NOTE | 2020-11-22 14:02 | PC.NURSE ---
pt alert and oriented, skin pwd, respirations even and unlabored, but pt put on bipap setting ipap 10/epap 5/and 30% oxygen, pt denies chest pain, but does report sob, ns on the monitor, vs stable 103/32. heprin drip started at 14u/kg/hr
[2020-11-22 15:36] LABS: Hematocrit 25.7 % (37-47); Hemoglobin 8.5 g/dl (12.0-16.0); Mean Corpuscular HGB Conc 33.1 g/dl (31.0-35.0); Mean Corpuscular Hemoglobin 29.9 pg (27.0-33.0); Mean Corpuscular Volume 90.5 fL (80-98); Mean Platelet Volume 9.6 fL (9.4-12.3); Platelet Count 193 X10*3/uL (160-400); Red Blood Count 2.84 X10*6/uL (4.20-5.50); Red Cell Distribution Width 13.1 % (11.0-16.0); White Blood Count 7.4 X10*3/uL (4.8-10.8)
[2020-11-22 16:10] LABS: B Type Natriuretic Peptide 1989 pg/mL (<100)
[2020-11-22 16:12] LABS: Troponin-I High Sensitivity 1724.6 ng/L (<3.5-17.0)
--- NOTE | 2020-11-22 16:34 | PM.CNCAR ---
History of Present Illness History of Present Illness Date of Service: 11/22/20 Requesting physician: Vibha Tello Chief complaint: NSTEMI, hypoxia. Narrative: 85-year-old female with background history of hypertension, hyperlipidemia, moderate , COPD, arthritis, anemia, allergic rhinitis and recent back surgery at [facility] on Thursday presenting with shortness of breath, wheezing and hypoxia. She is somewhat poor historian and was unable to give exact dates and times. She said her breathing got worse over the last couple of days. Also at some stage over the last few days she had Center dull chest discomfort. She said that lasted for whole day but history is quite unreliable right now. She is short of breath and wheezing. She had CT scan of the chest given recent surgery and that showed no evidence of pulmonary embolism but did show bilateral pleural effusion and concern for infiltrate. She was given nebulizers and 40 mg IV Lasix. She ruled in for NSTEMI. ER discussed with back surgeon and she was cleared to get heparin which was started. [facility] Past Medical History Medical History Acute laryngitis Allergic rhinitis Asthma Benign essential HTN Osteoporosis Primary osteoarthritis involving multiple joints Family History Family History Father Hypertension Mother Thyroid cancer Sister Breast cancer Surgical History Surgical History History of cataract surgery History of D&C History of kyphoplasty Social History Social History Alcohol intake: current Alcohol intake frequency: does not drink Alcohol type: wine Smoking Status: Former smoker Use of substances other than those prescribed or required for medical reasons: No Advance Directives: No Advance Directives Information Provided: No Meds Allergies Allergy/AdvReac Type Severity Reaction Status Date / Time acetaminophen Allergy Unknown Nausea and Verified 11/18/20 21:19 [Tylenol-Codeine] Vomiting amoxicillin [AMOXICILLIN] Allergy Unknown RASH Verified 11/18/20 21:19 cephalexin Allergy Unknown Nausea Verified 11/18/20 21:19 Erythromycin Allergy Unknown Nausea and Verified 11/18/20 21:19 Vomiting meloxicam Allergy Unknown Nausea and Verified 11/18/20 21:19 Vomiting meperidine [Demerol] Allergy Unknown Nausea and Verified 03/28/21 21:19 Vomiting nitrofurantoin Allergy Unknown UNK Verified 11/18/20 21:19 [From MACROBID] Penicillins [PENICILLINS] Allergy Unknown UNK Verified 11/18/20 21:19 Sulfa (Sulfonamide Allergy Unknown RASH Verified 11/18/20 21:19 Antibiotics) [SULFA(SULFONAMIDE ANTIBIOTICS)] tramadol Allergy Unknown Nausea and Verified 11/18/20 21:19 Vomiting codeine [CODEINE] AdvReac Unknown NAUSEA Verified 11/18/20 21:19 Active Medications: Current Medications Generic Name Dose Route Start Last Admin Trade Name Freq PRN Reason Stop Dose Admin Heparin Sodium/Sodium Chloride 25,000 unit in 250 mls @ 0 mls/hr 11/22/20 13:15 11/22/20 13:54 IVCONT 14 units/kg/hr .Q0M ERICK 12.7 mls/hr Administration Protocol Per Protocol Pharmacy Consult 1 each 11/22/20 11:09 Consult Rx Perform Med Rec MISCELLANE ONCE PRN Consult order Home Medications Medication Instructions Recorded Confirmed Last Taken Type Lactobacillus acidophilus 5 mg PO DAILY 07/10/20 11/22/20 Unknown History amitriptyline 10 mg tablet 10 mg PO BEDTIME 07/10/20 11/22/20 Unknown History anastrozole 1 mg tablet 1 mg PO DAILY 07/10/20 11/22/20 Unknown History calcium carbonate 600 mg calcium 600 mg PO DAILY@1700 07/10/20 11/22/20 Unknown History (1,500 mg) tablet cholecalciferol (vitamin D3) 25 25 mcg PO DAILY 07/10/20 11/22/20 Unknown History mcg (1,000 unit) capsule cod liver oil 1 cap PO DAILY 07/10/20 11/22/20 Unknown History diphenhydramine HCl 25 mg tablet 25 mg PO BEDTIME PRN 07/10/20 11/22/20 Unknown History ferrous sulfate 325 mg (65 mg 325 mg PO DAILY 07/10/20 11/22/20 Unknown History iron) tablet fexofenadine 180 mg tablet 180 mg PO BEDTIME 07/10/20 11/22/20 Unknown History fluticasone propionate 220 2 puff INHALATION BID 07/10/20 11/22/20 Unknown History mcg/actuation HFA aerosol inhaler lysine 1,000 mg tablet 1,000 mg PO DAILY@1700 tab 07/10/20 11/22/20 Unknown History metoprolol tartrate 25 mg tablet 25 mg PO BID 07/10/20 11/22/20 Unknown History omeprazole 20 mg capsule,delayed 20 mg PO DAILY 07/10/20 11/22/20 Unknown History release pyridoxine (vitamin B6) 100 mg 100 mg PO DAILY tab 07/10/20 11/22/20 Unknown History tablet simvastatin 10 mg tablet 10 mg PO BEDTIME 07/10/20 11/22/20 Unknown History vitamin E 200 unit capsule 400 unit PO DAILY cap 07/10/20 11/22/20 Unknown History TUMERIC 1,000 mg PO DAILY@1700 11/22/20 11/22/20 Unknown History alendronate 70 mg PO MO@0630 11/22/20 11/22/20 Unknown History ascorbic acid (vitamin C) 1 g PO DAILY@1200 11/22/20 11/22/20 Unknown History cyanocobalamin (vitamin B-12) 1,000 mcg PO DAILY 11/22/20 11/22/20 Unknown History docusate sodium 100 mg PO BID 11/22/20 11/22/20 Unknown History zdtxixsh-wxyav-lwlds-CF borate 1 tab PO BID 11/22/20 11/22/20 Unknown History [[facility]] vitamin A-vitamin C-vit E-min 2 tab PO DAILY 11/22/20 11/22/20 Unknown History [Ocuvite] Physical Exam Vital Signs: Vital Signs: Last Vital Signs Temp 98.3 F 11/22/20 09:22 Pulse 83 11/22/20 14:04 Resp 18 11/22/20 14:04 BP 103/32 L 11/22/20 14:04 Pulse Ox 100 11/22/20 14:04 Body Mass Index 33.3 GENERAL APPEARANCE: Distressed due to breathing. Wheezing. HEENT: unremarkable. HEAD: normocephalic, atraumatic. NECK/THYROID: no carotid bruit, Mild JVD. SKIN: no suspicious lesions, warm and dry. HEART: Systolic murmur aortic area, systolic murmur at the apex, regular rate and rhythm. LUNGS: Bilateral wheezes and rhonchi. ABDOMEN: normal, bowel sounds present, soft, nontender, nondistended. EXTREMITIES: no clubbing, cyanosis. Mild edema. PERIPHERAL PULSES: equal. NEUROLOGIC: nonfocal, alert and oriented. PSYCH: mood/affect full range. Results Labs and Meds Result diagrams: 11/22/20 15:27 11/22/20 09:51 Lab results: Laboratory Results - last 24 hr 11/22/20 11/22/20 11/22/20 09:51 09:51 09:52 WBC 7.6 RBC 2.97 L Hgb 8.9 L Hct 26.7 L MCV 89.9 MCH 30.0 MCHC 33.3 RDW 13.1 Plt Count 285 MPV 9.7 Immature Gran % (Auto) 0.3 Neut % (Auto) 73.3 H Lymph % (Auto) 13.1 L Daniels % (Auto) 9.6 Eos % (Auto) 3.2 Baso % (Auto) 0.5 Lymph # (Auto) 1.0 L Daniels # (Auto) 0.7 Eos # (Auto) 0.2 Baso # (Auto) 0.0 Abs Immat Gran (auto) 0.02 Absolute Neuts (auto) 5.6 Absolute Nucleated RBC 0.000 Nucleated RBC % (auto) 0.0 PT 13.4 H INR 1.1 Hold Blue Top SEE NOTE Sodium 128 L Potassium 4.8 Chloride 96 Carbon Dioxide 23 Anion Gap 14 BUN 15 Creatinine 0.82 Estim Creat Clear Calc 56.8 Estimated GFR > 60 Random Glucose 128 H Calcium 7.7 L D Magnesium 2.1 Total Bilirubin 0.5 Direct Bilirubin 0.3 AST 29 ALT 21 Alkaline Phosphatase 66 D Troponin I High Sens B-Natriuretic Peptide Total Protein 5.7 L Albumin 3.5 Urine Color Urine Appearance Urine pH Ur Specific [place] Urine Protein Urine Glucose (UA) Urine Ketones Urine Blood Urine Nitrite Ur Leukocyte Esterase Coronavirus (PCR) Influenza Type A (PCR) Influenza Type B (PCR) RSV RNA Qual (PCR) Blood Type Antibody Screen 11/22/20 11/22/20 11/22/20 09:52 09:54 10:13 WBC RBC Hgb Hct MCV MCH MCHC RDW Plt Count MPV Immature Gran % (Auto) Neut % (Auto) Lymph % (Auto) Daniels % (Auto) Eos % (Auto) Baso % (Auto) Lymph # (Auto) Daniels # (Auto) Eos # (Auto) Baso # (Auto) Abs Immat Gran (auto) Absolute Neuts (auto) Absolute Nucleated RBC Nucleated RBC % (auto) PT INR Hold Blue Top Sodium Potassium Chloride Carbon Dioxide Anion Gap BUN Creatinine Estim Creat Clear Calc Estimated GFR Random Glucose Calcium Magnesium Total Bilirubin Direct Bilirubin AST ALT Alkaline Phosphatase Troponin I High Sens 2023.3 H B-Natriuretic Peptide 1562 H Cancelled Total Protein Albumin Urine Color Urine Appearance Urine pH Ur Specific [place] Urine Protein Urine Glucose (UA) Urine Ketones Urine Blood Urine Nitrite Ur Leukocyte Esterase Coronavirus (PCR) NEGATIVE Influenza Type A (PCR) NEGATIVE Influenza Type B (PCR) NEGATIVE RSV RNA Qual (PCR) NEGATIVE Blood Type Antibody Screen 11/22/20 11/22/20 11/22/20 11:51 14:44 15:27 WBC 7.4 RBC 2.84 L Hgb 8.5 L Hct 25.7 L MCV 90.5 MCH 29.9 MCHC 33.1 RDW 13.1 Plt Count 193 D MPV 9.6 Immature Gran % (Auto) Neut % (Auto) Lymph % (Auto) Daniels % (Auto) Eos % (Auto) Baso % (Auto) Lymph # (Auto) Daniels # (Auto) Eos # (Auto) Baso # (Auto) Abs Immat Gran (auto) Absolute Neuts (auto) Absolute Nucleated RBC 0.000 Nucleated RBC % (auto) 0.0 PT INR Hold Blue Top Sodium Potassium Chloride Carbon Dioxide Anion Gap BUN Creatinine Estim Creat Clear Calc Estimated GFR Random Glucose Calcium Magnesium Total Bilirubin Direct Bilirubin AST ALT Alkaline Phosphatase Troponin I High Sens B-Natriuretic Peptide Total Protein Albumin Urine Color YELLOW Urine Appearance CLEAR Urine pH 5.5 Ur Specific [place] 1.010 Urine Protein NEG Urine Glucose (UA) NEG Urine Ketones NEG Urine Blood NEG Urine Nitrite NEG Ur Leukocyte Esterase NEG Coronavirus (PCR) Influenza Type A (PCR) Influenza Type B (PCR) RSV RNA Qual (PCR) Blood Type A Positive Antibody Screen NEGATIVE 11/22/20 11/22/20 15:27 15:27 WBC RBC Hgb Hct MCV MCH MCHC RDW Plt Count MPV Immature Gran % (Auto) Neut % (Auto) Lymph % (Auto) Daniels % (Auto) Eos % (Auto) Baso % (Auto) Lymph # (Auto) Daniels # (Auto) Eos # (Auto) Baso # (Auto) Abs Immat Gran (auto) Absolute Neuts (auto) Absolute Nucleated RBC Nucleated RBC % (auto) PT INR Hold Blue Top Sodium Potassium Chloride Carbon Dioxide Anion Gap BUN Creatinine Estim Creat Clear Calc Estimated GFR Random Glucose Calcium Magnesium Total Bilirubin Direct Bilirubin AST ALT Alkaline Phosphatase Troponin I High Sens 1724.6 H B-Natriuretic Peptide 1988 H Total Protein Albumin Urine Color Urine Appearance Urine pH Ur Specific [place] Urine Protein Urine Glucose (UA) Urine Ketones Urine Blood Urine Nitrite Ur Leukocyte Esterase Coronavirus (PCR) Influenza Type A (PCR) Influenza Type B (PCR) RSV RNA Qual (PCR) Blood Type Antibody Screen Imaging Radiologist's impression: Impressions Chest X-Ray 11/22/20 09:47 IMPRESSION: Lung volumes are low which limits the evaluation. Streaky bilateral opacities are nonspecific and may represent atelectasis, although a small airways process could have this appearance. There is no dense consolidation. Chest CTA 11/22/20 10:07 IMPRESSION: No evidence of PE. No evidence aortic dissection or aneurysm. Bilateral small pleural effusion with underlying atelectasis/infiltrate. There is a developing left upper lobe small infiltrate as well. VTE: negative Assessment and Plan (1) Congestive heart failure: Status: Acute (2) Non-ST elevation [place] (NSTEMI): Status: Acute (3) Aortic stenosis: Status: Acute (4) Mitral regurgitation: Status: Acute Pleasant 85-year-old female who had back surgery 5 days ago who is presenting with shortness of breath and chest discomfort. She is unsure when the chest discomfort has clear she had clear evidence of non ST elevation [place]. She has aortic stenosis murmur on examination as well as holosystolic murmur at the apex. Echocardiography has confirmed moderate severe aortic stenosis as well as moderate to severe mitral valve regurgitation. The basal inferior wall is akinetic. The wall motion abnormality is new compared to previous echocardiogram. ER as discussed with the surgeon and patient has been started on heparin drip. She should stay on baby aspirin. She has wheezing on examination as has mild congestion. She has been given nebulizers and 40 mg IV Lasix. She will be put on BiPAP for couple of hours to see if that improves her breathing. I will gently diurese her as he does not seem significantly volume overloaded. She also has this upper lobe infiltrate which can be due to mitral regurgitation versus a true infiltrate. I think given her age and recent surgery it is better to cover her for infection. She also has COPD and the wheezing can be due to lung issues. As she improves then we will assess the aortic stenosis further. She has concomitant moderate to severe mitral valve regurgitation which can effect aortic stenosis assessment by echocardiography as well as invasively. She is also anemic and is being started on heparin drip. Please make sure she has an active type and screen at all time in case she needs blood transfusion. We will follow along with you. Thank you for allowing me to participate in the care of your patient. Please feel free to contact me if you have any questions.
[2020-11-22] MEDS: Atorvastatin Calcium 80 MG TABLET PO (16:44)
--- NOTE | 2020-11-22 18:28 | PC.NURSE ---
pt tolerating 2L O2 well, spo2 consistently >92%. denies cp, sob, dizziness, nausea at this time. awaiting hospitalist for decision to admit
[2020-11-22] MEDS: Albumin Human 25 % 100 ML IV ×3 (20:22→22:31)
[2020-11-22] MEDS: cefEPime HCl 2 GM in 0.9 % Sodium Chloride 50 ML IV (20:22)
--- NOTE | 2020-11-22 20:27 | PC.NURSE ---
MATTHIAS RN INWITH ULTRASOUND FOR BLOOD DRAW AND PLACEMENT OF 3RD LINE. #18 IN L AC.
[2020-11-22 20:58] LABS: Lactic Acid 2.6 mmol/L (0.5-2.0)
[2020-11-22] MEDS: Doxycycline Hyclate 100 MG in 0.9 % Sodium Chloride 250 ML 166.67 MG IV (21:15)
--- NOTE | 2020-11-22 22:02 | PC.NURSE ---
#18 IN L AC INFILTRATED, DOXY RUNNING THROUGH THAT LINE, PAUSED FOR NOW. WARM PACK IN PLACE. ICU VIDEOTAPE SALES REPRESENTATIVE AT BEDSIDE, EXPECTING TRANSFER SHORTLY.
--- NOTE | 2020-11-22 22:22 | P.HPCC_ITS ---
History of Present Illness Date of Service: 11/22/20 Chief Complaint: Shortness of breath This is a 85-year-old female with a past medical history of diastolic congestive heart failure, moderate , hypertension, hyperlipidemia, COPD, osteoporosis, arthritis, anemia, and spinal stenosis who is status post lumbar spinal surgery performed by Dr.Frederik Munguia at [facility] on 11/16/2020. She presented today to the emergency room with acute shortness of breath. She also reported dyspnea, dyspnea on exertion, productive clear sputum cough, , intermittent headaches and midsternal chest pain. Initially in the emergency room she was in acute respiratory distress, vitals were stable at this time. Laboratory data significant for sodium of 138, calcium 7.7, troponin 2023.3, BNP 1562. EKG: normal sinus rhythm with ventricular rate of 88 with a normal NV interval with nonspecific ST abnormalities no acute ischemic changes are noted. Chest CTA: negative for PE, aortic dissection or aneurysm but did show bilateral pleural effusion and concern for infiltrates. Echo: Conclusions: - Normal left ventricular size and systolic function. - Elevated filling pressures. - The basal inferior segment is akinetic. - Normal right ventricular cavity size and systolic function. - There is moderate to severe aortic valve stenosis. - There is moderate to severe mitral valve regurgitation. - Mild pulmonary hypertension is present. ED course: Cardiology Dr. Palacios consulted by ED, and confirmed NSTEMI. ED staffed cleared Hpearin Drip with back surgeon and initiated heparin drip. Patient placed on BiPAP for 4 hours, and 40 mg of Lasix administered. She did become hypotensive with maps in the 50s. She will be admitted to the ICU for management of NSTEMI, Congestive heart fa ilure exacerbation and hypotension Review of Systems Review of Systems: As HPI. All other systems reviewed are negative PMFSH Past Medical History Medical History Acute laryngitis Allergic rhinitis Asthma Benign essential HTN Osteoporosis Primary osteoarthritis involving multiple joints Family History Family History Father Hypertension Mother Thyroid cancer Sister Breast cancer Surgical History Surgical History History of cataract surgery History of D&C History of kyphoplasty Social History Social History Alcohol intake: current Alcohol intake frequency: does not drink Alcohol type: wine Smoking Status: Former smoker Use of substances other than those prescribed or required for medical reasons: No Advance Directives: No Advance Directives Information Provided: No Meds Allergies Allergy/AdvReac Type Severity Reaction Status Date / Time acetaminophen Allergy Unknown Nausea and Verified 11/18/20 21:19 [Tylenol-Codeine] Vomiting amoxicillin [AMOXICILLIN] Allergy Unknown RASH Verified 11/18/20 21:19 cephalexin Allergy Unknown Nausea Verified 11/18/20 21:19 Erythromycin Allergy Unknown Nausea and Verified 11/18/20 21:19 Vomiting meloxicam Allergy Unknown Nausea and Verified 11/18/20 21:19 Vomiting meperidine [Demerol] Allergy Unknown Nausea and Verified 11/18/20 21:19 Vomiting nitrofurantoin Allergy Unknown UNK Verified 11/18/20 21:19 [From MACROBID] Penicillins [PENICILLINS] Allergy Unknown UNK Verified 11/18/20 21:19 Sulfa (Sulfonamide Allergy Unknown RASH Verified 11/18/20 21:19 Antibiotics) [SULFA(SULFONAMIDE ANTIBIOTICS)] tramadol Allergy Unknown Nausea and Verified 11/18/20 21:19 Vomiting codeine [CODEINE] AdvReac Unknown NAUSEA Verified 11/18/20 21:19 Active Medications: Current Medications Generic Name Dose Route Start Last Admin Trade Name Freq PRN Reason Stop Dose Admin Heparin Sodium/Sodium Chloride 25,000 unit in 250 mls @ 0 mls/hr 11/22/20 13:15 11/22/20 13:54 IVCONT 14 units/kg/hr .Q0M ERICK 12.7 mls/hr Administration Protocol Per Protocol Pharmacy Consult 1 each 11/22/20 11:09 Consult Rx Perform Med Rec MISCELLANE ONCE PRN Consult order Home Medications Medication Instructions Recorded Confirmed Last Taken Type Lactobacillus acidophilus 5 mg PO DAILY 07/10/20 11/22/20 Unknown History amitriptyline 10 mg tablet 10 mg PO BEDTIME 07/10/20 11/22/20 Unknown History anastrozole 1 mg tablet 1 mg PO DAILY 07/10/20 11/22/20 Unknown History calcium carbonate 600 mg calcium 600 mg PO DAILY@1700 07/10/20 11/22/20 Unknown History (1,500 mg) tablet cholecalciferol (vitamin D3) 25 25 mcg PO DAILY 07/10/20 11/22/20 Unknown History mcg (1,000 unit) capsule cod liver oil 1 cap PO DAILY 07/10/20 11/22/20 Unknown History diphenhydramine HCl 25 mg tablet 25 mg PO BEDTIME PRN 07/10/20 11/22/20 Unknown History ferrous sulfate 325 mg (65 mg 325 mg PO DAILY 07/10/20 11/22/20 Unknown History iron) tablet fexofenadine 180 mg tablet 180 mg PO BEDTIME 07/10/20 11/22/20 Unknown History fluticasone propionate 220 2 puff INHALATION BID 07/10/20 11/22/20 Unknown History mcg/actuation HFA aerosol inhaler lysine 1,000 mg tablet 1,000 mg PO DAILY@1700 tab 07/10/20 11/22/20 Unknown History metoprolol tartrate 25 mg tablet 25 mg PO BID 07/10/20 11/22/20 Unknown History omeprazole 20 mg capsule,delayed 20 mg PO DAILY 07/10/20 11/22/20 Unknown History release pyridoxine (vitamin B6) 100 mg 100 mg PO DAILY tab 07/10/20 11/22/20 Unknown History tablet simvastatin 10 mg tablet 10 mg PO BEDTIME 07/10/20 11/22/20 Unknown History vitamin E 200 unit capsule 400 unit PO DAILY cap 07/10/20 11/22/20 Unknown History TUMERIC 1,000 mg PO DAILY@1700 11/22/20 11/22/20 Unknown History alendronate 70 mg PO MO@0630 11/22/20 11/22/20 Unknown History ascorbic acid (vitamin C) 1 g PO DAILY@1200 11/22/20 11/22/20 Unknown History cyanocobalamin (vitamin B-12) 1,000 mcg PO DAILY 11/22/20 11/22/20 Unknown History docusate sodium 100 mg PO BID 11/22/20 11/22/20 Unknown History ncrvlbuq-lqhnk-lkmkm-CF borate 1 tab PO BID 11/22/20 11/22/20 Unknown History [[employer]] vitamin A-vitamin C-vit E-min 2 tab PO DAILY 11/22/20 11/22/20 Unknown History [Ocuvite] Physical Exam Vital Signs: Vital Signs: Last Vital Signs Temp 98.0 F 11/22/20 20:32 Pulse 82 11/22/20 20:57 Resp 28 H 11/22/20 20:57 BP 97/28 L 11/22/20 20:57 Pulse Ox 97 11/22/20 20:57 Body Mass Index 33.3 Const: General: no acute distress and alert Eyes: Pupils: Equal, round and reactive pupils present Neck: Neck: Yes supple and Yes no JVD Resp: Effort & Inspection: normal respiratory effort and Actively coughing Auscultation: wheezes Cardio: Jugular venous distension: no JVD Rate: regular rate Rhythm: regular rhythm Peripheral pulses: Peripheral pulses 2+ throughout GI: Palpation (GI): Soft to palpation Auscultation: normal bowel sounds Neuro: Cranial nerves: Yes Equal, round and reactive pupils present Extrem: Other: 3+ edema bilateral lower extremities Right upper extremity: normal capillary refill Results Labs CBC and Chem 7: 11/22/20 15:27 11/22/20 09:51 Labs: Laboratory Results - last 24 hr 11/22/20 11/22/20 11/22/20 09:51 09:51 09:52 MCV 89.9 MCH 30.0 MCHC 33.3 RDW 13.1 Plt Count 285 MPV 9.7 Immature Gran % (Auto) 0.3 Neut % (Auto) 73.3 H Lymph % (Auto) 13.1 L [place] % (Auto) 9.6 Eos % (Auto) 3.2 Baso % (Auto) 0.5 Lymph # (Auto) 1.0 L [place] # (Auto) 0.7 Eos # (Auto) 0.2 Baso # (Auto) 0.0 Abs Immat Gran (auto) 0.02 Absolute Neuts (auto) 5.6 Absolute Nucleated RBC 0.000 Nucleated RBC % (auto) 0.0 PT 13.4 H INR 1.1 Hold Blue Top SEE NOTE Anion Gap 14 Estim Creat Clear Calc 56.8 Estimated GFR > 60 Random Glucose 128 H Lactic Acid Calcium 7.7 L D Magnesium 2.1 Total Bilirubin 0.5 Direct Bilirubin 0.3 AST 29 ALT 21 Alkaline Phosphatase 66 D Troponin I High Sens B-Natriuretic Peptide Total Protein 5.7 L Albumin 3.5 Urine Color Urine Appearance Urine pH Ur Specific [place] Urine Protein Urine Glucose (UA) Urine Ketones Urine Blood Urine Nitrite Ur Leukocyte Esterase Coronavirus (PCR) Influenza Type A (PCR) Influenza Type B (PCR) RSV RNA Qual (PCR) Blood Type Antibody Screen 11/22/20 11/22/20 11/22/20 09:52 09:54 10:13 MCV MCH MCHC RDW Plt Count MPV Immature Gran % (Auto) Neut % (Auto) Lymph % (Auto) [place] % (Auto) Eos % (Auto) Baso % (Auto) Lymph # (Auto) [place] # (Auto) Eos # (Auto) Baso # (Auto) Abs Immat Gran (auto) Absolute Neuts (auto) Absolute Nucleated RBC Nucleated RBC % (auto) PT INR Hold Blue Top Anion Gap Estim Creat Clear Calc Estimated GFR Random Glucose Lactic Acid Calcium Magnesium Total Bilirubin Direct Bilirubin AST ALT Alkaline Phosphatase Troponin I High Sens 2023.3 H B-Natriuretic Peptide 1562 H Cancelled Total Protein Albumin Urine Color Urine Appearance Urine pH Ur Specific [place] Urine Protein Urine Glucose (UA) Urine Ketones Urine Blood Urine Nitrite Ur Leukocyte Esterase Coronavirus (PCR) NEGATIVE Influenza Type A (PCR) NEGATIVE Influenza Type B (PCR) NEGATIVE RSV RNA Qual (PCR) NEGATIVE Blood Type Antibody Screen 11/22/20 11/22/20 11/22/20 11:51 14:44 15:27 MCV 90.5 MCH 29.9 MCHC 33.1 RDW 13.1 Plt Count 193 D MPV 9.6 Immature Gran % (Auto) Neut % (Auto) Lymph % (Auto) [place] % (Auto) Eos % (Auto) Baso % (Auto) Lymph # (Auto) [place] # (Auto) Eos # (Auto) Baso # (Auto) Abs Immat Gran (auto) Absolute Neuts (auto) Absolute Nucleated RBC 0.000 Nucleated RBC % (auto) 0.0 PT INR Hold Blue Top Anion Gap Estim Creat Clear Calc Estimated GFR Random Glucose Lactic Acid Calcium Magnesium Total Bilirubin Direct Bilirubin AST ALT Alkaline Phosphatase Troponin I High Sens B-Natriuretic Peptide Total Protein Albumin Urine Color YELLOW Urine Appearance CLEAR Urine pH 5.5 Ur Specific [place] 1.010 Urine Protein NEG Urine Glucose (UA) NEG Urine Ketones NEG Urine Blood NEG Urine Nitrite NEG Ur Leukocyte Esterase NEG Coronavirus (PCR) Influenza Type A (PCR) Influenza Type B (PCR) RSV RNA Qual (PCR) Blood Type A Positive Antibody Screen NEGATIVE 11/22/20 11/22/20 11/22/20 15:27 15:27 20:21 MCV MCH MCHC RDW Plt Count MPV Immature Gran % (Auto) Neut % (Auto) Lymph % (Auto) [place] % (Auto) Eos % (Auto) Baso % (Auto) Lymph # (Auto) [place] # (Auto) Eos # (Auto) Baso # (Auto) Abs Immat Gran (auto) Absolute Neuts (auto) Absolute Nucleated RBC Nucleated RBC % (auto) PT INR Hold Blue Top Anion Gap Estim Creat Clear Calc Estimated GFR Random Glucose Lactic Acid 2.6 H* Calcium Magnesium Total Bilirubin Direct Bilirubin AST ALT Alkaline Phosphatase Troponin I High Sens 1724.6 H B-Natriuretic Peptide 1989 H Total Protein Albumin Urine Color Urine Appearance Urine pH Ur Specific [place] Urine Protein Urine Glucose (UA) Urine Ketones Urine Blood Urine Nitrite Ur Leukocyte Esterase Coronavirus (PCR) Influenza Type A (PCR) Influenza Type B (PCR) RSV RNA Qual (PCR) Blood Type Antibody Screen Imaging Radiologist's Impressions: Impressions Chest X-Ray 11/22/20 09:47 IMPRESSION: Lung volumes are low which limits the evaluation. Streaky bilateral opacities are nonspecific and may represent atelectasis, although a small airways process could have this appearance. There is no dense consolidation. Chest CTA 11/22/20 10:07 IMPRESSION: No evidence of PE. No evidence aortic dissection or aneurysm. Bilateral small pleural effusion with underlying atelectasis/infiltrate. There is a developing left upper lobe small infiltrate as well. VTE: negative Assessment and Plan (1) Non-ST elevation [place] (NSTEMI): Status: Acute 85-year-old female with history of hypertension, diastolic heart failure who presents for NSTEMI Plan: Neuro: No acute issues Cardiac: NSTEMI- Tropnin elevated to 2022. EKG wih no acute ischemic changes. Cardiology consult appreciated. Echo showed Basal inferior akinesis, moderate to severe and MR. Heparin drip in the ED. Cont heparin drip CHF exacerbation: she was given 40 of Lasix in the emergency room. Require BiPAP only for 4 hours. Diurese as needed Hypotension: patient does have an NSTEMI as well as severe . Hypotension is likely due to diuresing. No evidence of septic/ cardiogenic shock at this time. Will give 200 albumin. and as needed bolus. Pulmonary: Acute respiratory distress: during the ED she required BiPAP for 4 hours. She was not hypoxic, she is now on room air. Renal: No acute issues Endo: No acute issues GI: No acute issues ID: No acute issues Heme/Onc: No acute issues. Psych: No acute issues. Miscellaneous: No acute issues. Prophylaxis: IV Heparin, no GI prophylaxis needed at this time CODE: full code Critical care time: X 90 minutes of critical care time (2) Congestive heart failure: Status: Acute (3) Aortic stenosis, severe: Status: Acute (4) Severe mitral valve regurgitation: Status: Acute (5) Benign essential HTN: Status: Acute (6) Hypotension: Status: Acute
[2020-11-22 22:31] LABS: Reflex Lactate? Lactic Acid Added
--- NOTE | 2020-11-22 22:40 | PC.NURSE ---
PT BP IMRPOVING. CALL MADE OUT TO ICU, EXPECTING CALL BACK. PT REMAINS SLIGHTLY DYSPNEIC AT REST, SPO2 REMAINS >95% ON 2.5L.
[2020-11-22 22:41] LABS: PTT Heparin Drip > 200.0 SEC (53-77.9)
--- NOTE | 2020-11-22 22:51 | PC.NURSE ---
HEPARIN GTT PAUSED FOLLOWING APTT
--- NOTE | 2020-11-22 23:27 | PC.NURSE ---
REPORT GIVEN TO ASSEM[employer] KNIFE
[2020-11-23] VITALS (26 sets, daily range): BP systolic 103–133; BP diastolic 45–74; PULSE 82–98; RESP 17–39; TEMP 36.2–36.8; O2SAT 83–100; BMI 36.0
[2020-11-23 00:05] LABS: ~Lactic Acid-LAB USE ONLY 1.7 mmol/L (0.5-2.0)
[2020-11-23] MEDS: Morphine Sulfate 2 MG/ML CARTRIDGE 1 MG IVPUSH (00:47)
[2020-11-23 00:52] LABS: PTT Heparin Drip > 200.0 SEC (53-77.9)
[2020-11-23 01:55] LABS: Partial Thromboplastin Time 128.5 SEC (24.1-38.0)
--- NOTE | 2020-11-23 02:41 | PC.NURSE ---
Addendum entered by Jareth Bhakta RN 11/23/20 04:14: initially napping intermittantly--awoke--coughing--raising thin pinkish-white sputum...lungs scattered harsh expiratory wheezes and diffuse fine crackles--off bipap briefly--dyspneic--returned to bipap 10/5 & fio2 405--icu software intern present and examined patient--stat updraft ordered/given---stevens remained with 10-15 cc/hr---started lasix drip 5 mg/hr--nsr--no ectopy Original Note: ADMIT TO 261-1--ALERT..ORIENTED X3...O2 2.5 L/M @ ADMIT...PEREZ---DIFFUSE FINE CRACKLES [place]...SAO2 90-91% AND DECLINED TO 87%...O2 TO 4 L/M--REMAINS SOB--PLACED ON BIPAP 10/5 & FIO2 35% PER ICU PATROL AGENT...SAO2 96-97%---C/O 12/31 MID-STERNAL CHEST PAIN---MORPHINE 1MG IV GIVEN WITH RELIEF OF DISCOMFORT..STEVENS WITH MINIMAL OUTPUT--PATROL AGENT PRESENT AND AWARE...HEPARIN DRIP PREVIOUSLY HELD IN ER DEPT D/T ELEVATED PTT-HD---DRIP REMAINS OFF---HOURLY PTT-HD'S DRAWN PER PROTOCOL---MULTIPLE BRUISES BOTH ARMS--LUMBAR BACK SURGICAL SITE WITH OLD BRUISING--LAST DOSE OF ALBUMEN IN MAR HELD PER ICU PATROL AGENT--MONITOR NSR--NO ECTOPY
[2020-11-23 02:50] LABS: PTT Heparin Drip 80.8 SEC (53-77.9)
[2020-11-23] MEDS: Furosemide 500 MG in Container,Empty 0 ML IVCONT (04:01)
[2020-11-23] MEDS: Albuterol/Iprat 2.5/0.5MG 3 ML AMPUL.NEB INHALE (04:02)
[2020-11-23 05:59] LABS: VBG Base Excess -1.7 mmol/L; VBG HCO3 22 mmol/L (22-26); VBG pCO2 37 mmHg; VBG pH 7.39 (7.32-7.43); VBG pO2 50 mmHg
[2020-11-23 06:19] LABS: MANUAL DIFF FLAG NO
[2020-11-23 06:26] LABS: Basophils Percent Auto 0.5 % (0-2); Eosinophils Absolute Auto 0.2 X10*3/uL (0.0-0.4); Eosinophils Percent Auto 2.8 % (0-4); Hematocrit 21.1 % (37-47); Imm Gran Abs Auto 0.03 X10*3/uL (0.00-0.03); Imm Gran Pct Auto 0.4 % (0.0-0.4); Lymphocytes Absolute Auto 1.4 X10*3/uL (1.2-4.9); Lymphocytes Percent Auto 19.2 % (20-40); Mean Corpuscular HGB Conc 32.7 g/dl (31.0-35.0); Mean Corpuscular Volume 91.7 fL (80-98); Mean Platelet Volume 10.1 fL (9.4-12.3); Monocytes Absolute Auto 0.8 X10*3/uL (0.1-1.2); Monocytes Percent Auto 11.2 % (2-11); Neutrophils Absolute Auto 4.9 X10*3/uL (2.0-8.3); Neutrophils Percent Auto 65.9 % (45-73); Platelet Count 244 X10*3/uL (160-400); Red Cell Distribution Width 13.4 % (11.0-16.0); White Blood Count 7.5 X10*3/uL (4.8-10.8)
[2020-11-23 06:33] LABS: INTERNATIONAL NORM RATIO 1.2 (0.9-1.1); Prothrombin Time 14.1 SEC (10.8-13.0)
[2020-11-23 06:44] LABS: Hemoglobin 6.9 g/dl (12.0-16.0)
[2020-11-23 06:53] LABS: Albumin Level 4.1 g/dL (3.5-5.0); Blood Urea Nitrogen 19 mg/dL (9-16); Calcium 7.7 mg/dL (8.4-10.2); Carbon Dioxide 23 mmol/L (22-29); Creatinine Clr Calc Pharmacy 40.5; Estimated Glomerular Filt Rate 43; Glucose Random 135 mg/dL (60-115); Magnesium 2.2 mg/dL (1.6-2.6)
[2020-11-23 07:02] LABS: Anion Gap 14 (12-20); Chloride 97 mmol/L (96-108); Potassium 4.3 mmol/L (3.3-5.1); Sodium 130 mmol/L (135-145)
[2020-11-23 07:16] LABS: Venous Blood Gas Refer to POC result
--- NOTE | 2020-11-23 11:27 | P.PNCA_ITS ---
Subjective Subjective Date of Service: 11/23/20 Interval history: Saying she is feeling better. She is currently on BiPAP. After a heparin drip she dropped her hemoglobin to 6.9. Physical Exam Vital Signs: Last Vital Signs Temp 98.2 F 11/23/20 10:20 Pulse 82 11/23/20 11:00 Resp 17 11/23/20 11:00 BP 110/57 L 11/23/20 11:00 Pulse Ox 97 11/23/20 11:00 Body Mass Index 36.0 GENERAL APPEARANCE: On BiPAP. HEENT: unremarkable. HEAD: normocephalic, atraumatic. NECK/THYROID: no carotid bruit, no JVD. SKIN: no suspicious lesions, warm and dry. HEART: Difficult to hear anything due to BiPAP right now. LUNGS: Mild wheezes. ABDOMEN: normal, bowel sounds present, soft, nontender, nondistended. EXTREMITIES: no clubbing, cyanosis. Mild edema. PERIPHERAL PULSES: equal. NEUROLOGIC: nonfocal, alert and oriented. PSYCH: mood/affect full range. Results Labs and Meds Result diagrams: 11/23/20 05:54 11/23/20 05:54 Lab results: Laboratory Results - last 24 hr 11/22/20 11/22/20 11/22/20 11:51 14:44 15:27 WBC 7.4 RBC 2.84 L Hgb 8.5 L Hct 25.7 L MCV 90.5 MCH 29.9 MCHC 33.1 RDW 13.1 Plt Count 193 D MPV 9.6 Immature Gran % (Auto) Neut % (Auto) Lymph % (Auto) [place] % (Auto) Eos % (Auto) Baso % (Auto) Lymph # (Auto) [place] # (Auto) Eos # (Auto) Baso # (Auto) Abs Immat Gran (auto) Absolute Neuts (auto) Absolute Nucleated RBC 0.000 Nucleated RBC % (auto) 0.0 Smear Path Review PT INR APTT PTT (Heparin Protocol) VBG pH VBG pCO2 VBG pO2 VBG HCO3 VBG O2 Saturation VBG Base Excess Sodium Potassium Chloride Carbon Dioxide Anion Gap BUN Creatinine Estim Creat Clear Calc Estimated GFR Random Glucose Lactic Acid Lactic Acid Fup @ 2Hr Calcium Phosphorus Magnesium Troponin I High Sens B-Natriuretic Peptide Albumin Urine Color YELLOW Urine Appearance CLEAR Urine pH 5.5 Ur Specific [place] 1.010 Urine Protein NEG Urine Glucose (UA) NEG Urine Ketones NEG Urine Blood NEG Urine Nitrite NEG Ur Leukocyte Esterase NEG Blood Type A Positive Antibody Screen NEGATIVE Crossmatch See Detail 11/22/20 11/22/20 11/22/20 15:27 15:27 20:21 WBC RBC Hgb Hct MCV MCH MCHC RDW Plt Count MPV Immature Gran % (Auto) Neut % (Auto) Lymph % (Auto) [place] % (Auto) Eos % (Auto) Baso % (Auto) Lymph # (Auto) [place] # (Auto) Eos # (Auto) Baso # (Auto) Abs Immat Gran (auto) Absolute Neuts (auto) Absolute Nucleated RBC Nucleated RBC % (auto) Smear Path Review PT INR APTT PTT (Heparin Protocol) VBG pH VBG pCO2 VBG pO2 VBG HCO3 VBG O2 Saturation VBG Base Excess Sodium Potassium Chloride Carbon Dioxide Anion Gap BUN Creatinine Estim Creat Clear Calc Estimated GFR Random Glucose Lactic Acid 2.6 H* Lactic Acid Fup @ 2Hr Calcium Phosphorus Magnesium Troponin I High Sens 1724.6 H B-Natriuretic Peptide 1989 H Albumin Urine Color Urine Appearance Urine pH Ur Specific [place] Urine Protein Urine Glucose (UA) Urine Ketones Urine Blood Urine Nitrite Ur Leukocyte Esterase Blood Type Antibody Screen Crossmatch 11/22/20 11/22/20 11/22/20 22:13 23:39 23:39 WBC RBC Hgb Hct MCV MCH MCHC RDW Plt Count MPV Immature Gran % (Auto) Neut % (Auto) Lymph % (Auto) [place] % (Auto) Eos % (Auto) Baso % (Auto) Lymph # (Auto) [place] # (Auto) Eos # (Auto) Baso # (Auto) Abs Immat Gran (auto) Absolute Neuts (auto) Absolute Nucleated RBC Nucleated RBC % (auto) Smear Path Review PT INR APTT PTT (Heparin Protocol) > 200.0 H* > 200.0 H* VBG pH VBG pCO2 VBG pO2 VBG HCO3 VBG O2 Saturation VBG Base Excess Sodium Potassium Chloride Carbon Dioxide Anion Gap BUN Creatinine Estim Creat Clear Calc Estimated GFR Random Glucose Lactic Acid Lactic Acid Fup @ 2Hr 1.7 Calcium Phosphorus Magnesium Troponin I High Sens B-Natriuretic Peptide Albumin Urine Color Urine Appearance Urine pH Ur Specific [place] Urine Protein Urine Glucose (UA) Urine Ketones Urine Blood Urine Nitrite Ur Leukocyte Esterase Blood Type Antibody Screen Crossmatch 11/23/20 11/23/20 11/23/20 01:14 02:27 05:53 WBC RBC Hgb Hct MCV MCH MCHC RDW Plt Count MPV Immature Gran % (Auto) Neut % (Auto) Lymph % (Auto) [place] % (Auto) Eos % (Auto) Baso % (Auto) Lymph # (Auto) [place] # (Auto) Eos # (Auto) Baso # (Auto) Abs Immat Gran (auto) Absolute Neuts (auto) Absolute Nucleated RBC Nucleated RBC % (auto) Smear Path Review PT INR APTT 128.5 H* PTT (Heparin Protocol) 80.8 H D VBG pH 7.39 VBG pCO2 37 VBG pO2 50 VBG HCO3 22 VBG O2 Saturation 71.0 VBG Base Excess -1.7 Sodium Potassium Chloride Carbon Dioxide Anion Gap BUN Creatinine Estim Creat Clear Calc Estimated GFR Random Glucose Lactic Acid Lactic Acid Fup @ 2Hr Calcium Phosphorus Magnesium Troponin I High Sens B-Natriuretic Peptide Albumin Urine Color Urine Appearance Urine pH Ur Specific [place] Urine Protein Urine Glucose (UA) Urine Ketones Urine Blood Urine Nitrite Ur Leukocyte Esterase Blood Type Antibody Screen Crossmatch 11/23/20 11/23/20 11/23/20 05:54 05:54 05:54 WBC 7.5 RBC 2.30 L Hgb 6.9 L* Hct 21.1 L MCV 91.7 MCH 30.0 MCHC 32.7 RDW 13.4 Plt Count 244 D MPV 10.1 Immature Gran % (Auto) 0.4 Neut % (Auto) 65.9 Lymph % (Auto) 19.2 L [place] % (Auto) 11.2 H Eos % (Auto) 2.8 Baso % (Auto) 0.5 Lymph # (Auto) 1.4 [place] # (Auto) 0.8 Eos # (Auto) 0.2 Baso # (Auto) 0.0 Abs Immat Gran (auto) 0.03 Absolute Neuts (auto) 4.9 Absolute Nucleated RBC 0.000 Nucleated RBC % (auto) 0.0 Smear Path Review SEE NOTE PT 14.1 H INR 1.2 H APTT PTT (Heparin Protocol) VBG pH VBG pCO2 VBG pO2 VBG HCO3 VBG O2 Saturation VBG Base Excess Sodium 130 L Potassium 4.3 Chloride 97 Carbon Dioxide 23 Anion Gap 14 BUN 19 H Creatinine 1.20 Estim Creat Clear Calc 40.5 Estimated GFR 43 Random Glucose 135 H Lactic Acid Lactic Acid Fup @ 2Hr Calcium 7.7 L Phosphorus 3.0 Magnesium 2.2 Troponin I High Sens B-Natriuretic Peptide Albumin 4.1 Urine Color Urine Appearance Urine pH Ur Specific [place] Urine Protein Urine Glucose (UA) Urine Ketones Urine Blood Urine Nitrite Ur Leukocyte Esterase Blood Type Antibody Screen Crossmatch 11/23/20 05:54 WBC RBC Hgb Hct MCV MCH MCHC RDW Plt Count MPV Immature Gran % (Auto) Neut % (Auto) Lymph % (Auto) [place] % (Auto) Eos % (Auto) Baso % (Auto) Lymph # (Auto) [place] # (Auto) Eos # (Auto) Baso # (Auto) Abs Immat Gran (auto) Absolute Neuts (auto) Absolute Nucleated RBC Nucleated RBC % (auto) Smear Path Review PT INR APTT PTT (Heparin Protocol) VBG pH VBG pCO2 VBG pO2 VBG HCO3 VBG O2 Saturation VBG Base Excess Sodium Potassium Chloride Carbon Dioxide Anion Gap BUN Creatinine Estim Creat Clear Calc Estimated GFR Random Glucose Lactic Acid Lactic Acid Fup @ 2Hr Calcium Phosphorus Magnesium Troponin I High Sens 1700.0 H B-Natriuretic Peptide Albumin Urine Color Urine Appearance Urine pH Ur Specific [place] Urine Protein Urine Glucose (UA) Urine Ketones Urine Blood Urine Nitrite Ur Leukocyte Esterase Blood Type Antibody Screen Crossmatch Imaging Radiologist's impression: Impressions Chest CTA 11/22/20 10:07 IMPRESSION: No evidence of PE. No evidence aortic dissection or aneurysm. Bilateral small pleural effusion with underlying atelectasis/infiltrate. There is a developing left upper lobe small infiltrate as well. VTE: negative Progress Note: A&P Assessment and plan (1) Hypotension: Status: Acute (2) Aortic stenosis: Status: Acute (3) Mitral regurgitation: Status: Acute (4) Non-ST elevation SC (NSTEMI): Status: Acute Assessment and Plan: 85-year-old female who recently underwent back surgery and presented to to us for dyspnea and hypoxia. She was mildly overloaded and had diffuse wheezes all over. She was put on BiPAP and given 40 of Lasix. She ruled in for NSTEMI and complained of chest discomfort at home. She was started on heparin drip but unfortunately dropped her hemoglobin to 6.9. She is getting 1 unit of blood now. Heparin is on hold right now. She had 1 more episode of chest discomfort lasting for 5-10 minutes overnight. Echocardiography is showing concern for moderate to severe aortic stenosis as well as moderate severe mitral regurgitation. She is warm all over and does not seem in a low-flow state right now. Agree with transfusion. She will need further assessment for the valve as a clinical situation improves. Thank you for allowing me to participate in the care of your patient. Please feel free to contact me if you have any questions. Fall Risk Details Current Medications: Current Medications Generic Name Dose Route Start Last Admin Trade Name Freq PRN Reason Stop Dose Admin Furosemide 500 mg/ IV 50 mls @ 0.5 mls/hr 11/23/20 03:45 11/23/20 04:01 Miscellaneous Supplies IVCONT 5 mg/hr .Q24H ERICK 0.5 mls/hr Administration 5 MG/HR Pharmacy Consult 1 each 11/22/20 11:09 Consult Rx Perform Med Rec MISCELLANE ONCE PRN Consult order Time Spent With Patient Time: Total time spent is greater than 50% in coordination of care (as documented) at patient's floor/unit and/or counseling patient: Time with patient: Greater than 35 minutes
--- NOTE | 2020-11-23 13:08 | MHC.CM.ED ---
per cardiology note, pt is to be transferred to [facility]. action to transport. cm to cont. to follow.
--- NOTE | 2020-11-23 16:06 | P.PNCC_ITS ---
Subjective Subjective Date of Service: 11/23/20 Interval History: 85-year-old lady with underlying history of asthma, hypertension diastolic heart failure, moderate aortic stenosis, COPD, spinal stenosis status post laminectomy on 11/16/2020 admitted on 11/22/2020 with progressive shortness of breath for several days. On ER evaluation patient was noted to be in exacerbation of underlying severe diastolic congestive failure requiring BiPAP support and started on diuretic. Her echocardiogram showed severe aortic stenosis and mitral regurgitation. Patient became hypotensive and has received 200 cc of 25% albumin with improvement in her systolic blood pressure to 90s. She has been admitted to intensive care unit for close monitoring. She has been evaluated by Cardiology service and started on heparin drip. Unfortunately, overnight patient has developed acute blood loss anemia with hematoma around the site of her recent laminectomy and have heparin drip has been held. Patient has been accepted in transfer to [facility] cardiac critical care unit and is currently awaiting bed assignment. She continues on Lasix drip at 5 mg/hr. She has been titrated off BiPAP. Physical Exam Vital Signs: Vital Signs: Last Vital Signs Temp 97.3 F 11/23/20 13:48 Pulse 84 11/23/20 16:00 Resp 23 H 11/23/20 16:00 BP 114/46 L 11/23/20 16:00 Pulse Ox 95 11/23/20 16:00 Body Mass Index 36.0 Const: General: no acute distress, alert and awake Eyes: Sclerae: sclerae normal EOM: EOMs intact bilaterally Neck: Neck: Yes no lymphadenopathy, Yes trachea midline and Yes supple Resp: Effort & Inspection: normal respiratory effort and no respiratory distress Auscultation: clear to auscultation bilaterally Cardio: Rate: regular rate Rhythm: regular rhythm Heart sounds: no gallops, Murmur heart sound present (3/6 systolic) and no rubs GI: Palpation (GI): Soft to palpation and Other GI palpation findings present ( Nontender) Auscultation: normal bowel sounds Extrem: General: No clubbing, No cyanosis and Yes pedal edema (Trace bilateral) Objective Data Labs CBC & Chem 7: 11/23/20 05:54 11/23/20 05:54 Labs: Laboratory Results - last 24 hr 11/22/20 11/22/20 11/22/20 14:44 15:27 15:27 WBC RBC Hgb Hct MCV MCH MCHC RDW Plt Count MPV Immature Gran % (Auto) Neut % (Auto) Lymph % (Auto) [place] % (Auto) Eos % (Auto) Baso % (Auto) Lymph # (Auto) [place] # (Auto) Eos # (Auto) Baso # (Auto) Abs Immat Gran (auto) Absolute Neuts (auto) Absolute Nucleated RBC Nucleated RBC % (auto) Smear Path Review PT INR APTT PTT (Heparin Protocol) VBG pH VBG pCO2 VBG pO2 VBG HCO3 VBG O2 Saturation VBG Base Excess Sodium Potassium Chloride Carbon Dioxide Anion Gap BUN Creatinine Estim Creat Clear Calc Estimated GFR Random Glucose Lactic Acid Lactic Acid Fup @ 2Hr Calcium Phosphorus Magnesium Troponin I High Sens 1724.6 H B-Natriuretic Peptide 1989 H Albumin Blood Type A Positive Antibody Screen NEGATIVE Crossmatch See Detail 11/22/20 11/22/20 11/22/20 20:21 22:13 23:39 WBC RBC Hgb Hct MCV MCH MCHC RDW Plt Count MPV Immature Gran % (Auto) Neut % (Auto) Lymph % (Auto) [place] % (Auto) Eos % (Auto) Baso % (Auto) Lymph # (Auto) [place] # (Auto) Eos # (Auto) Baso # (Auto) Abs Immat Gran (auto) Absolute Neuts (auto) Absolute Nucleated RBC Nucleated RBC % (auto) Smear Path Review PT INR APTT PTT (Heparin Protocol) > 200.0 H* VBG pH VBG pCO2 VBG pO2 VBG HCO3 VBG O2 Saturation VBG Base Excess Sodium Potassium Chloride Carbon Dioxide Anion Gap BUN Creatinine Estim Creat Clear Calc Estimated GFR Random Glucose Lactic Acid 2.6 H* Lactic Acid Fup @ 2Hr 1.7 Calcium Phosphorus Magnesium Troponin I High Sens B-Natriuretic Peptide Albumin Blood Type Antibody Screen Crossmatch 11/22/20 11/23/20 11/23/20 23:39 01:14 02:27 WBC RBC Hgb Hct MCV MCH MCHC RDW Plt Count MPV Immature Gran % (Auto) Neut % (Auto) Lymph % (Auto) [place] % (Auto) Eos % (Auto) Baso % (Auto) Lymph # (Auto) [place] # (Auto) Eos # (Auto) Baso # (Auto) Abs Immat Gran (auto) Absolute Neuts (auto) Absolute Nucleated RBC Nucleated RBC % (auto) Smear Path Review PT INR APTT 128.5 H* PTT (Heparin Protocol) > 200.0 H* 80.8 H D VBG pH VBG pCO2 VBG pO2 VBG HCO3 VBG O2 Saturation VBG Base Excess Sodium Potassium Chloride Carbon Dioxide Anion Gap BUN Creatinine Estim Creat Clear Calc Estimated GFR Random Glucose Lactic Acid Lactic Acid Fup @ 2Hr Calcium Phosphorus Magnesium Troponin I High Sens B-Natriuretic Peptide Albumin Blood Type Antibody Screen Crossmatch 11/23/20 11/23/20 11/23/20 05:53 05:54 05:54 WBC 7.5 RBC 2.30 L Hgb 6.9 L* Hct 21.1 L MCV 91.7 MCH 30.0 MCHC 32.7 RDW 13.4 Plt Count 244 D MPV 10.1 Immature Gran % (Auto) 0.4 Neut % (Auto) 65.9 Lymph % (Auto) 19.2 L [place] % (Auto) 11.2 H Eos % (Auto) 2.8 Baso % (Auto) 0.5 Lymph # (Auto) 1.4 [place] # (Auto) 0.8 Eos # (Auto) 0.2 Baso # (Auto) 0.0 Abs Immat Gran (auto) 0.03 Absolute Neuts (auto) 4.9 Absolute Nucleated RBC 0.000 Nucleated RBC % (auto) 0.0 Smear Path Review SEE NOTE PT 14.1 H INR 1.2 H APTT PTT (Heparin Protocol) VBG pH 7.39 VBG pCO2 37 VBG pO2 50 VBG HCO3 22 VBG O2 Saturation 71.0 VBG Base Excess -1.7 Sodium Potassium Chloride Carbon Dioxide Anion Gap BUN Creatinine Estim Creat Clear Calc Estimated GFR Random Glucose Lactic Acid Lactic Acid Fup @ 2Hr Calcium Phosphorus Magnesium Troponin I High Sens B-Natriuretic Peptide Albumin Blood Type Antibody Screen Crossmatch 11/23/20 11/23/20 05:54 05:54 WBC RBC Hgb Hct MCV MCH MCHC RDW Plt Count MPV Immature Gran % (Auto) Neut % (Auto) Lymph % (Auto) [place] % (Auto) Eos % (Auto) Baso % (Auto) Lymph # (Auto) [place] # (Auto) Eos # (Auto) Baso # (Auto) Abs Immat Gran (auto) Absolute Neuts (auto) Absolute Nucleated RBC Nucleated RBC % (auto) Smear Path Review PT INR APTT PTT (Heparin Protocol) VBG pH VBG pCO2 VBG pO2 VBG HCO3 VBG O2 Saturation VBG Base Excess Sodium 130 L Potassium 4.3 Chloride 97 Carbon Dioxide 23 Anion Gap 14 BUN 19 H Creatinine 1.20 Estim Creat Clear Calc 40.5 Estimated GFR 43 Random Glucose 135 H Lactic Acid Lactic Acid Fup @ 2Hr Calcium 7.7 L Phosphorus 3.0 Magnesium 2.2 Troponin I High Sens 1700.0 H B-Natriuretic Peptide Albumin 4.1 Blood Type Antibody Screen Crossmatch Progress Note: A&P Assessment and plan (1) Aortic stenosis, severe: Status: Acute Assessment and Plan: Assessment: 85-year-old lady admitted with exacerbation of underlying diastolic congestive heart failure further exacerbated by underlying severe mitral regurgitation and aortic stenosis initially requiring BiPAP support Plan: Neuro: No acute issues. Cardiac: Severe diastolic dysfunction, severe aortic stenosis, severe mitral regurgitation. Cardiology service care appreciated. Heparin drip. Secondary to acute blood loss anemia. Pending transfer to [facility] cardiac critical care unit. Continues on Lasix drip. Pulmonary: Acute hypoxic respiratory failure secondary to acute on chronic exacerbation of underlying diastolic congestive heart failure. Titrated off BiPAP. Continue to titrate off supplemental oxygen as tolerated. Renal: No acute issues. Endo: No acute issues. GI: No acute issues. ID: No acute issues Heme/Onc: Acute blood loss anemia secondary to hematoma around recent onel ctomy site. Heparin drip held. Psych: No acute issues. Miscellaneous: No acute issues. Prophylaxis: Intermittent pneumatic compression Diet: Cardiac Critical care time spent: 60 minutes (2) Severe mitral valve regurgitation: Status: Acute (3) Congestive heart failure: Status: Acute (4) Benign essential HTN: Status: Acute (5) Asthma: Status: Acute (6) Status post laminectomy: Status: Acute (7) Acute respiratory failure with hypoxia: Status: Acute Time Spent With Patient Total time spent with greater than 50% in coordination of care (as documented) at patient's floor/unit and/or counseling patient:: 0 Critical Care Time Critical Care Time (minutes): 60
--- NOTE | 2020-11-23 16:46 | PM.DS ---
DS: Providers Provider Date of Service: 11/23/20 Date of admission: 11/22/20 21:59 Primary care physician: Michael Shepard MD Consults: 11/23/20 07:58 Consult to Cardiology Routine Consulting Provider: Yousif Palacios Reason for consultation: Severe , evaluate for TAVR vs AVR Has provider been notified: No DS: Transfer Hospital Acceptance Reason for Transfer: Advanced heart failure/valvular disease evaluation Name of Facility: [facility] Accepting Provider: Dr. Gan DS: Diagnosis Discharge Diagnosis (1) Aortic stenosis, severe: Status: Acute (2) Severe mitral valve regurgitation: Status: Acute (3) Congestive heart failure: Status: Acute (4) Benign essential HTN: Status: Acute (5) Asthma: Status: Acute (6) Status post laminectomy: Status: Acute (7) Acute respiratory failure with hypoxia: Status: Acute DS: Medications Discharge Medications Home Medications: Home Medications Medication Instructions Recorded Confirmed Lactobacillus acidophilus 5 mg PO DAILY 07/10/20 11/22/20 amitriptyline 10 mg tablet 10 mg PO BEDTIME 07/10/20 11/22/20 anastrozole 1 mg tablet 1 mg PO DAILY 07/10/20 11/22/20 calcium carbonate 600 mg calcium 600 mg PO DAILY@1700 07/10/20 11/22/20 (1,500 mg) tablet cholecalciferol (vitamin D3) 25 25 mcg PO DAILY 07/10/20 11/22/20 mcg (1,000 unit) capsule cod liver oil 1 cap PO DAILY 07/10/20 11/22/20 diphenhydramine HCl 25 mg tablet 25 mg PO BEDTIME PRN 07/10/20 11/22/20 ferrous sulfate 325 mg (65 mg 325 mg PO DAILY 07/10/20 11/22/20 iron) tablet fexofenadine 180 mg tablet 180 mg PO BEDTIME 07/10/20 11/22/20 fluticasone propionate 220 2 puff INHALATION BID 07/10/20 11/22/20 mcg/actuation HFA aerosol inhaler lysine 1,000 mg tablet 1,000 mg PO DAILY@1700 tab 07/10/20 11/22/20 metoprolol tartrate 25 mg tablet 25 mg PO BID 07/10/20 11/22/20 omeprazole 20 mg capsule,delayed 20 mg PO DAILY 07/10/20 11/22/20 release pyridoxine (vitamin B6) 100 mg 100 mg PO DAILY tab 07/10/20 11/22/20 tablet simvastatin 10 mg tablet 10 mg PO BEDTIME 07/10/20 11/22/20 vitamin E 200 unit capsule 400 unit PO DAILY cap 07/10/20 11/22/20 TUMERIC 1,000 mg PO DAILY@1700 11/22/20 11/22/20 alendronate 70 mg PO MO@0630 11/22/20 11/22/20 ascorbic acid (vitamin C) 1 g PO DAILY@1200 11/22/20 11/22/20 cyanocobalamin (vitamin B-12) 1,000 mcg PO DAILY 11/22/20 11/22/20 docusate sodium 100 mg PO BID 11/22/20 11/22/20 npsriipf-bhzcl-vqtgy-CF borate 1 tab PO BID 11/22/20 11/22/20 [[facility]] vitamin A-vitamin C-vit E-min 2 tab PO DAILY 11/22/20 11/22/20 [Ocuvite] Previous Rx's Medication Instructions Recorded lisinopril 5 mg tablet 5 mg PO DAILY #90 tab 07/13/20 nifedipine 30 mg tablet,extended 30 mg PO DAILY #60 tab 08/02/20 release cefaclor 250 mg capsule 250 mg PO BEDTIME #30 cap 11/15/20 DS: Summary Hospital Course Hospital Course: 85-year-old lady with underlying history of asthma, hypertension diastolic heart failure, moderate aortic stenosis, COPD, spinal stenosis status post laminectomy on 11/16/2020 admitted on 11/22/2020 with progressive shortness of breath for several days. On ER evaluation patient was noted to be in exacerbation of underlying severe diastolic congestive failure requiring BiPAP support and started on diuretic. Her echocardiogram showed severe aortic stenosis and mitral regurgitation. Patient became hypotensive and has received 200 cc of 25% albumin with improvement in her systolic blood pressure to 90s. She has been admitted to intensive care unit for close monitoring. She has been evaluated by Cardiology service and started on heparin drip. Unfortunately, overnight patient has developed acute blood loss anemia with small hematoma around the site of her recent laminectomy and have heparin drip has been held. She continues on Lasix drip at 5 mg/hr. She has been titrated off BiPAP. Patient has been accepted in transfer to [facility] cardiac critical care unit for advanced heart failure management and evaluation for intervention on her valvular heart disease. Time Spent with Patient Time attestation: Total time spent providing and/or coordinating discharge services: Discharge coordination time: Greater than 30 minutes Physical Exam Vital Signs: Vital Signs: Last Vital Signs Temp 98.3 F 11/23/20 16:00 Pulse 84 11/23/20 16:00 Resp 23 H 11/23/20 16:00 BP 114/46 L 11/23/20 16:00 Pulse Ox 95 11/23/20 16:00 Body Mass Index 36.0 Const: General: no acute distress, alert and awake Eyes: Sclerae: sclerae normal EOM: EOMs intact bilaterally Neck: Neck: Yes no lymphadenopathy, Yes trachea midline and Yes supple Resp: Effort & Inspection: normal respiratory effort and no respiratory distress Auscultation: crackles (Diffuse bilateral) Cardio: Rate: regular rate Rhythm: regular rhythm Heart sounds: no gallops, Murmur heart sound present (3/6 systolic) and no rubs GI: Palpation (GI): Soft to palpation and Other GI palpation findings present ( Nontender) Auscultation: normal bowel sounds Extrem: General: No clubbing, No cyanosis and Yes pedal edema (1+ bilateral) DS: Data Data Completed and Pending Labs on day of discharge: Laboratory Results - last 24 hr 11/22/20 11/22/20 11/22/20 14:44 20:21 22:13 WBC RBC Hgb Hct MCV MCH MCHC RDW Plt Count MPV Immature Gran % (Auto) Neut % (Auto) Lymph % (Auto) [place] % (Auto) Eos % (Auto) Baso % (Auto) Lymph # (Auto) [place] # (Auto) Eos # (Auto) Baso # (Auto) Abs Immat Gran (auto) Absolute Neuts (auto) Absolute Nucleated RBC Nucleated RBC % (auto) Smear Path Review PT INR APTT PTT (Heparin Protocol) > 200.0 H* VBG pH VBG pCO2 VBG pO2 VBG HCO3 VBG O2 Saturation VBG Base Excess Sodium Potassium Chloride Carbon Dioxide Anion Gap BUN Creatinine Estim Creat Clear Calc Estimated GFR Random Glucose Lactic Acid 2.6 H* Lactic Acid Fup @ 2Hr Calcium Phosphorus Magnesium Troponin I High Sens Albumin Blood Type A Positive Antibody Screen NEGATIVE Crossmatch See Detail 11/22/20 11/22/20 11/23/20 23:39 23:39 01:14 WBC RBC Hgb Hct MCV MCH MCHC RDW Plt Count MPV Immature Gran % (Auto) Neut % (Auto) Lymph % (Auto) [place] % (Auto) Eos % (Auto) Baso % (Auto) Lymph # (Auto) [place] # (Auto) Eos # (Auto) Baso # (Auto) Abs Immat Gran (auto) Absolute Neuts (auto) Absolute Nucleated RBC Nucleated RBC % (auto) Smear Path Review PT INR APTT 128.5 H* PTT (Heparin Protocol) > 200.0 H* VBG pH VBG pCO2 VBG pO2 VBG HCO3 VBG O2 Saturation VBG Base Excess Sodium Potassium Chloride Carbon Dioxide Anion Gap BUN Creatinine Estim Creat Clear Calc Estimated GFR Random Glucose Lactic Acid Lactic Acid Fup @ 2Hr 1.7 Calcium Phosphorus Magnesium Troponin I High Sens Albumin Blood Type Antibody Screen Crossmatch 11/23/20 11/23/20 11/23/20 02:27 05:53 05:54 WBC 7.5 RBC 2.30 L Hgb 6.9 L* Hct 21.1 L MCV 91.7 MCH 30.0 MCHC 32.7 RDW 13.4 Plt Count 244 D MPV 10.1 Immature Gran % (Auto) 0.4 Neut % (Auto) 65.9 Lymph % (Auto) 19.2 L [place] % (Auto) 11.2 H Eos % (Auto) 2.8 Baso % (Auto) 0.5 Lymph # (Auto) 1.4 [place] # (Auto) 0.8 Eos # (Auto) 0.2 Baso # (Auto) 0.0 Abs Immat Gran (auto) 0.03 Absolute Neuts (auto) 4.9 Absolute Nucleated RBC 0.000 Nucleated RBC % (auto) 0.0 Smear Path Review SEE NOTE PT INR APTT PTT (Heparin Protocol) 80.8 H D VBG pH 7.39 VBG pCO2 37 VBG pO2 50 VBG HCO3 22 VBG O2 Saturation 71.0 VBG Base Excess -1.7 Sodium Potassium Chloride Carbon Dioxide Anion Gap BUN Creatinine Estim Creat Clear Calc Estimated GFR Random Glucose Lactic Acid Lactic Acid Fup @ 2Hr Calcium Phosphorus Magnesium Troponin I High Sens Albumin Blood Type Antibody Screen Crossmatch 11/23/20 11/23/20 11/23/20 05:54 05:54 05:54 WBC RBC Hgb Hct MCV MCH MCHC RDW Plt Count MPV Immature Gran % (Auto) Neut % (Auto) Lymph % (Auto) [place] % (Auto) Eos % (Auto) Baso % (Auto) Lymph # (Auto) [place] # (Auto) Eos # (Auto) Baso # (Auto) Abs Immat Gran (auto) Absolute Neuts (auto) Absolute Nucleated RBC Nucleated RBC % (auto) Smear Path Review PT 14.1 H INR 1.2 H APTT PTT (Heparin Protocol) VBG pH VBG pCO2 VBG pO2 VBG HCO3 VBG O2 Saturation VBG Base Excess Sodium 130 L Potassium 4.3 Chloride 97 Carbon Dioxide 23 Anion Gap 14 BUN 19 H Creatinine 1.20 Estim Creat Clear Calc 40.5 Estimated GFR 43 Random Glucose 135 H Lactic Acid Lactic Acid Fup @ 2Hr Calcium 7.7 L Phosphorus 3.0 Magnesium 2.2 Troponin I High Sens 1700.0 H Albumin 4.1 Blood Type Antibody Screen Crossmatch Discharge Plan Discharge Anticipated Discharge Date/Time: 11/23/20 16:50 Patient Disposition: Xfer Acute Care Hospital Referrals: [facility] [Outside] Michael Shepard MD [Primary Care Provider] - Discharge Medications: Continued alendronate 70 mg tablet 70 mg PO MO@0630 RF: 0 fluticasone propionate 220 mcg/actuation HFA aerosol inhaler 2 puff inhalation BID RF: 0 anastrozole 1 mg tablet 1 mg PO DAILY RF: 0 omeprazole 20 mg capsule,delayed release(DR/EC) 20 mg PO DAILY RF: 0 cholecalciferol (vitamin D3) 25 mcg (1,000 unit) capsule 25 mcg PO DAILY RF: 0 Discontinued lisinopril 5 mg tablet 5 mg PO DAILY Qty: 90 RF: 1 nifedipine 30 mg tablet extended release 30 mg PO DAILY Qty: 60 RF: 2 cefaclor 250 mg capsule 250 mg PO BEDTIME Qty: 30 RF: 0 docusate sodium 100 mg Capsule 100 mg PO BID RF: 0 TUMERIC 1,000 mg PO DAILY@1700 RF: 0 cyanocobalamin (vitamin B-12) 1,000 mcg Tablet 1,000 mcg PO DAILY RF: 0 ascorbic acid (vitamin C) 1,000 mg Tablet 1 g PO DAILY@1200 RF: 0 Ocuvite Tablet 2 tab PO DAILY RF: 0 [facility] 750 mg-100 mg- 1.65 mg-108 mg Tablet 1 tab PO BID RF: 0 metoprolol tartrate 25 mg tablet 25 mg PO BID RF: 0 amitriptyline 10 mg tablet 10 mg PO BEDTIME RF: 0 simvastatin 10 mg tablet 10 mg PO BEDTIME RF: 0 Lactobacillus acidophilus [Acidophilus] Capsule 5 mg PO DAILY RF: 0 calcium carbonate [Calcium 600] 600 mg calcium (1,500 mg) tablet 600 mg PO DAILY@1700 RF: 0 cod liver oil Capsule 1 cap PO DAILY RF: 0 diphenhydramine HCl [Allergy (diphenhydramine)] 25 mg tablet 25 mg PO BEDTIME PRN (Reason: Allergic Symptoms) RF: 0 fexofenadine 180 mg tablet 180 mg PO BEDTIME RF: 0 ferrous sulfate 325 mg (65 mg iron) tablet 325 mg PO DAILY RF: 0 lysine 1,000 mg tablet 1,000 mg PO DAILY@1700 RF: 0 pyridoxine (vitamin B6) 100 mg tablet 100 mg PO DAILY RF: 0 vitamin E 200 unit capsule 400 unit PO DAILY RF: 0 Discharge Orders: Discharge Order (Routine); Ordered 11/23/20 Ordered By: Antony Evans Activity on Discharge: As tolerated Stand Alone Forms: Patient Portal Discharge page Care Plan Goals: Comply with treatment plan Health Concerns: Comply with treatment plan Plan of Treatment: Comply with treatment plan
== END 2020-11-23 17:30 | disposition short-term general hospital (02) | DRG 190 ==
LOC: HO.ED 21:51 → HO.EDOVER 22:12 → HO.ICU 22:19
PROVIDERS: Physician Assistant; Physician Assistant Medical; Registered Nurse Community Health; Admitting Provider Internal Medicine Pulmonary Disease; Emergency Provider Emergency Medicine Emergency Medical Services; PCP Internal Medicine; Visit Provider Internal Medicine Pulmonary Disease
DX: I21.4 Non-ST elevation (NSTEMI) myocardial infarction (principal); I50.33 Acute on chronic diastolic (congestive) heart failure; I95.9 Hypotension, unspecified; I11.0 Hypertensive heart disease with heart failure; I34.0 Nonrheumatic mitral (valve) insufficiency; I35.0 Nonrheumatic aortic (valve) stenosis; D62 Acute posthemorrhagic anemia; M96.840 Postprocedural hematoma of a musculoskeletal structure following a musculoskeletal system procedure; Z88.0 Allergy status to penicillin; Z88.2 Allergy status to sulfonamides; Z79.52 Long term (current) use of systemic steroids; Z79.899 Other long term (current) drug therapy
CPT/HCPCS: 0241U; 36415; 71045; 71275; 80048; 80076; 81003; 82040; 83605; 83735; 83880; 84100; 84484; 85025; 85027; 85060; 85610; 85730; 86850; 86900; 86923; 87040; 93005; 93306; 94640; 94644; 94660; 96365; 96366; 96375; 99285; J0692; J1940; J2270; J2405; J2916; P9016; P9047; Q9967

== ENCOUNTER → 2021-01-01 11:39 | Outpatient (BNVA) | payer BC, SELFPAY | PROVIDERS: PCP Internal Medicine; Referring Provider Internal Medicine; Visit Provider Nurse Practitioner Family ==

== ENCOUNTER 2021-01-03 12:13 | Outpatient (REF) | payer BC, SELFPAY ==
[2021-01-03 13:50] LABS: MANUAL DIFF FLAG NO
[2021-01-03 14:00] LABS: Basophils Absolute Auto 0.1 X10*3/uL (0.0-0.2); Basophils Percent Auto 0.9 % (0-2); Eosinophils Absolute Auto 0.6 X10*3/uL (0.0-0.4); Eosinophils Percent Auto 8.1 % (0-4); Hematocrit 28.9 % (37-47); Hemoglobin 9.3 g/dl (12.0-16.0); Imm Gran Abs Auto 0.01 X10*3/uL (0.00-0.03); Imm Gran Pct Auto 0.1 % (0.0-0.4); Lymphocytes Absolute Auto 2.1 X10*3/uL (1.2-4.9); Lymphocytes Percent Auto 30.4 % (20-40); Mean Corpuscular HGB Conc 32.2 g/dl (31.0-35.0); Mean Corpuscular Hemoglobin 30.3 pg (27.0-33.0); Mean Corpuscular Volume 94.1 fL (80-98); Mean Platelet Volume 9.9 fL (9.4-12.3); Monocytes Absolute Auto 0.5 X10*3/uL (0.1-1.2); Monocytes Percent Auto 6.8 % (2-11); Neutrophils Absolute Auto 3.8 X10*3/uL (2.0-8.3); Neutrophils Percent Auto 53.7 % (45-73); Platelet Count 257 X10*3/uL (160-400); Red Blood Count 3.07 X10*6/uL (4.20-5.50); Red Cell Distribution Width 14.3 % (11.0-16.0); White Blood Count 7.1 X10*3/uL (4.8-10.8)
[2021-01-03 14:27] LABS: Anion Gap 13 (12-20); Blood Urea Nitrogen 26 mg/dL (9-16); Calcium 8.7 mg/dL (8.4-10.2); Carbon Dioxide 22 mmol/L (22-29); Chloride 108 mmol/L (96-108); Cholesterol 136 mg/dL; Estimated Glomerular Filt Rate 38; Glucose Random 137 mg/dL (60-115); HDL Cholesterol 43 mg/dL; LDL Cholesterol Calculated 77 mg/dl; Potassium 4.1 mmol/L (3.3-5.1); Sodium 139 mmol/L (135-145); Triglycerides 83 mg/dL
== END 2021-01-03 12:14 | disposition home or self-care (01) ==
LOC: HO.10HDL 12:13
PROVIDERS: Absent Provider Internal Medicine; Visit Provider Internal Medicine
DX: I35.0 Nonrheumatic aortic (valve) stenosis (principal); D64.9 Anemia, unspecified; I21.4 Non-ST elevation (NSTEMI) myocardial infarction; E78.5 Hyperlipidemia, unspecified
CPT/HCPCS: 36415; 80048; 80061; 85025

== ENCOUNTER → 2021-01-09 13:42 | Outpatient (BNVA) | payer BC, SELFPAY | PROVIDERS: PCP Internal Medicine; Visit Provider Internal Medicine ==

== ENCOUNTER 2021-02-05 15:50 | Observation (INO) | payer BC, SELFPAY ==
--- NOTE | 2021-02-05 | ECG_ITS ---
Test Reason : CHEST PAIN Blood Pressure : / mmHG Vent. Rate : 062 BPM Atrial Rate : 062 BPM P-R Int : 198 ms QRS Dur : 110 ms QT Int : 422 ms P-R-T Axes : 041 -18 072 degrees QTc Int : 428 ms Sinus rhythm with Premature atrial complexes Nonspecific ST and T wave abnormality When compared with ECG of 23-NOV-2020 00:13, ST no longer depressed in Anterolateral leads T wave inversion no longer evident in Lateral leads Referred By: Joe Gamboa Electronically Signed By:SHANTAL RUVALCABA
--- NOTE | ~2021-02-05 | NM_ITS ---
EXAMINATION: NUCLEAR MEDICINE HEPATOBILIARY SCAN. CLINICAL INFORMATION: Right-sided chest and shoulder pain. Abnormal abdominal ultrasound COMPARISON: Ultrasound abdomen limited 02/07/2020 TECHNIQUE: Following intravenous administration of 5 mCi of 99m technetium mebrofenin, imaging over the right upper quadrant was obtained up to 60 minutes. At 60 minutes ensure was administered orally and further imaging was obtained up to another 60 minutes. FINDINGS: There is normal hepatic uptake without any focal defect. There is prompt visualization of gallbladder by 14 minutes. The CBD was visualized by 60 minutes. Post ensure there is no contraction of gallbladder up to 60 minutes consistent with dyskinetic gallbladder. NM/NM hepatobiliary wo pharm IMPRESSION: Gallbladder ejection fraction measures 0% at 60 minutes following oral administration of ensure consistent with dyskinetic gallbladder. . There is normal hepatic uptake with no focal defects. Patent cystic duct and patent CBD. Results were discussed with Dr. Zamora at 3:00 PM
--- NOTE | ~2021-02-05 | XR_ITS ---
EXAMINATION: XR CHEST CLINICAL INFORMATION: Rib pain. COMPARISON: Chest 11/22/2020 TECHNIQUE: Frontal view of the chest was obtained. FINDINGS: The lungs are well-expanded and clear. The heart size and pulmonary vascularity is normal. There is mild elevated right hemidiaphragm. No gross bony abnormality seen. XR/XR chest 1V IMPRESSION: Clear lungs with elevated right hemidiaphragm. Previously visualized bilateral lower lobe dependent infiltrate/atelectasis has improved
--- NOTE | ~2021-02-05 | US_ITS ---
EXAMINATION: US ABDOMEN LIMITED CLINICAL INFORMATION: Right upper quadrant pain. COMPARISON: CT chest performed earlier same date and CT abdomen/pelvis dated 12/15/2017. TECHNIQUE: Real-time imaging of the right upper quadrant abdominal viscera. FINDINGS: PANCREAS: Visualized portions unremarkable; tail obscured by interposed bowel gas. LIVER: Normal. The liver is normal in size. The liver contour is normal. Parenchymal echogenicity is normal. No focal hepatic lesion. There is no intrahepatic biliary duct dilatation seen. GALLBLADDER: Cholelithiasis is present. There is borderline gallbladder wall thickening measuring 3 mm. No pericholecystic fluid. Sonographic Parker sign is positive. COMMON BILE DUCT: Normal in caliber measuring 0.5 cm in diameter. RIGHT KIDNEY: Normal. No hydronephrosis. No renal calculi. There is a 1.3 cm hypoechoic structure within the lower pole of the kidney, most compatible with a simple or complicated cyst. The kidney measures 11.2 cm in maximum dimension. FREE FLUID: None. US/US abdomen limited IMPRESSION: Cholelithiasis and borderline gallbladder wall thickening. While the sonographic Parker sign is positive, the patient is experiencing most mild pain within the right flank region.
--- NOTE | ~2021-02-05 | CT_ITS ---
EXAMINATION: CT ANGIOGRAM OF THE CHEST WITH AND WITHOUT CONTRAST (CT PULMONARY ANGIOGRAM FOR PE) CLINICAL INFORMATION: Reason for Exam elevated dimer, CP R side COMPARISON: 11/22/2020 TECHNIQUE: Prior to contrast administration, noncontrast localization images were obtained. Subsequently, multidetector volumetric imaging was performed from the thoracic inlet to below the diaphragms following the administration of 80 mL Omnipaque 350 intravenous contrast. No contrast reaction reported Sagittal, coronal, and MIP oblique sagittal reformatted images were obtained on the CT workstation, uploaded to PACS, and reviewed. This CT examination was performed using dose optimization techniques as appropriate, variously including the following: *Automated exposure control *Adjustment of mA and/or kV according to patient size (this includes techniques or standardized protocols for targeted exams where dose is matched to indication/reason for exam; i.e. extremities or head) *Use of iterative reconstruction technique Total exam dose-length product 407c mGy-cm FINDINGS: QUALITY OF STUDY/CONTRAST BOLUS: Satisfactory. PULMONARY ARTERIES: No central or segmental pulmonary emboli. THORACIC AORTA: No aneurysm or dissection. LUNG: Expiratory phase image acquisition. There are some geographic bilateral groundglass opacities related to air trapping in the areas of subsegmental atelectasis. No compelling evidence of acute pneumonitis. No parenchymal consolidation or suspicious pulmonary nodules. PLEURA: No pleural effusion or pneumothorax. MEDIASTINUM: Cardiomegaly. No pericardial effusion. TAVR. No evidence of septal bowing or right heart strain. No reflux of contrast into the hepatic veins to suggest elevated right heart pressures. No mediastinal or hilar adenopathy. CHEST WALL/AXILLA: No axillary or internal mammary lymphadenopathy. OSSEOUS STRUCTURES: No acute or suspicious osseous abnormality. c severe degenerative changes of the bilateral glenohumeral joints. UPPER ABDOMEN: There is cholelithiasis and gallbladder distention, similar in appearance to the prior exam. CT/CT angio chest PE protocol IMPRESSION: No evidence of pulmonary embolism. Cardiomegaly without evidence of decompensated heart failure. Cholelithiasis and gallbladder distention, similar in appearance to prior. If there is concern for cholecystitis, recommend right upper quadrant ultrasound. VTE: negative
[2021-02-05 16:17] VITALS: BP 113/58; PULSE 64; RESP 18; TEMP 37; O2SAT 98; BMI 30.4
[2021-02-05 20:28] LABS: MANUAL DIFF FLAG NO
[2021-02-05 20:30] LABS: Basophils Absolute Auto 0.1 X10*3/uL (0.0-0.2); Basophils Percent Auto 0.7 % (0-2); Eosinophils Absolute Auto 0.4 X10*3/uL (0.0-0.4); Hematocrit 24.1 % (37-47); Imm Gran Abs Auto 0.02 X10*3/uL (0.00-0.03); Imm Gran Pct Auto 0.3 % (0.0-0.4); Lymphocytes Absolute Auto 2.1 X10*3/uL (1.2-4.9); Lymphocytes Percent Auto 30.1 % (20-40); Mean Corpuscular HGB Conc 33.2 g/dl (31.0-35.0); Mean Corpuscular Hemoglobin 31.1 pg (27.0-33.0); Mean Corpuscular Volume 93.8 fL (80-98); Mean Platelet Volume 9.9 fL (9.4-12.3); Monocytes Absolute Auto 0.7 X10*3/uL (0.1-1.2); Monocytes Percent Auto 10.1 % (2-11); Neutrophils Absolute Auto 3.6 X10*3/uL (2.0-8.3); Neutrophils Percent Auto 52.8 % (45-73); Platelet Count 130 X10*3/uL (160-400); Red Blood Count 2.57 X10*6/uL (4.20-5.50); White Blood Count 6.8 X10*3/uL (4.8-10.8)
[2021-02-05 20:58] LABS: Alanine Aminotransferase 28 U/L (0-31); Albumin Level 3.7 g/dL (3.5-5.0); Alkaline Phosphatase 81 U/L (39-117); Anion Gap 12 (12-20); Aspartate Amino Transferase 46 U/L (5-31); Bilirubin Direct 0.2 mg/dL (0.0-0.5); Bilirubin Total 0.5 mg/dL (0.0-1.0); Blood Urea Nitrogen 23 mg/dL (9-16); Calcium 8.5 mg/dL (8.4-10.2); Carbon Dioxide 22 mmol/L (22-29); Chloride 110 mmol/L (96-108); Creatinine Clr Calc Pharmacy 40.5; Estimated Glomerular Filt Rate 47; Glucose Random 125 mg/dL (60-115); Lipase 21 U/L (8-78); Sodium 140 mmol/L (135-145); Total Protein 6.2 g/dL (6.5-8.0)
[2021-02-05 21:07] LABS: Troponin-I High Sensitivity 54.5 ng/L (<3.5-17.0)
--- NOTE | 2021-02-05 22:33 | ED.GENADULT ---
HPI - General Adult General Chief complaint: Abdominal Pain Stated complaint: Abd Pain Time Seen by Provider: 02/05/21 22:01 Source: patient Mode of arrival: ambulatory Limitations: no limitations History of Present Illness HPI narrative: Patient comes to emergency room complaining of right-sided chest pain. Patient states that she has discomfort under her right breast. Patient states if she holds a tight without bright and a towel for support, the pain increases. Patient has no shortness of breath or diaphoresis. Of note, pt had a TAVR procedure on January 31 at [facility]. Patient also complaining of pain on the right side with deep inspiration. Related Data Home Medications Medication Instructions Recorded Confirmed anastrozole 1 mg tablet 1 mg PO DAILY 07/10/20 01/01/21 cholecalciferol (vitamin D3) 25 25 mcg PO DAILY 07/10/20 01/01/21 mcg (1,000 unit) capsule fluticasone propionate 220 2 puff INHALATION BID 07/10/20 01/01/21 mcg/actuation HFA aerosol inhaler omeprazole 20 mg capsule,delayed 20 mg PO DAILY 07/10/20 01/01/21 release alendronate 70 mg PO MO@0630 11/22/20 01/01/21 albuterol sulfate 90 mcg/actuation 2 puff INHALATION Q6H PRN 12/17/20 01/01/21 aerosol inhaler lysine 1,000 mg tablet 1,000 mg PO DAILY 12/17/20 01/01/21 acetaminophen 500 mg tablet 500 mg PO Q6H PRN 12/31/20 01/01/21 calcium carbonate 600 mg calcium 600 mg PO DAILY 12/31/20 01/01/21 (1,500 mg) tablet cod liver oil 1 cap PO DAILY 12/31/20 01/01/21 ferrous sulfate 325 mg (65 mg 325 mg PO DAILY 12/31/20 01/01/21 iron) tablet fexofenadine 180 mg tablet 180 mg PO DAILY 12/31/20 01/01/21 glucosam 750 mg-chondroi 100 1 tab PO BID tab 12/31/20 01/01/21 mg-hyalur 1.65 mg-CF borate 108 mg tablet pyridoxine (vitamin B6) 100 mg 100 mg PO DAILY tab 12/31/20 01/01/21 tablet vitamin B complex 1 tab PO DAILY 12/31/20 01/01/21 vitamin E succinate 400 unit tablet 400 unit PO DAILY 12/31/20 01/01/21 nifedipine 30 mg tablet,extended 30 mg PO DAILY 01/01/21 01/01/21 release Previous Rx's Medication Instructions Recorded amitriptyline 10 mg tablet 10 mg PO DAILY #90 tab 12/20/20 metoprolol tartrate 25 mg tablet 25 mg PO BID #180 tab 12/23/20 aspirin 81 mg tablet,delayed 81 mg PO DAILY #90 tab 01/07/21 release atorvastatin 80 mg tablet 80 mg PO DAILY #90 tab 01/07/21 clopidogrel 75 mg tablet 75 mg PO DAILY #90 tab 01/07/21 Allergies Allergy/AdvReac Type Severity Reaction Status Date / Time acetaminophen Allergy Intermediate Nausea and Verified 01/09/21 13:53 [Tylenol-Codeine] Vomiting amoxicillin [AMOXICILLIN] Allergy Intermediate RASH Verified 01/09/21 13:53 cephalexin Allergy Intermediate Nausea Verified 01/09/21 13:53 Erythromycin Allergy Intermediate Nausea and Verified 01/09/21 13:53 Vomiting meloxicam Allergy Intermediate Nausea and Verified 01/09/21 13:53 Vomiting meperidine [Demerol] Allergy Intermediate Nausea and Verified 01/09/21 13:53 Vomiting nitrofurantoin Allergy Intermediate Rash Verified 01/09/21 13:53 [From MACROBID] Penicillins Allergy Intermediate Rash Verified 01/09/21 13:53 Sulfa (Sulfonamide Allergy Intermediate RASH Verified 01/09/21 13:53 Antibiotics) [SULFA(SULFONAMIDE ANTIBIOTICS)] tramadol Allergy Intermediate Nausea and Verified 01/09/21 13:53 Vomiting codeine [CODEINE] AdvReac Intermediate NAUSEA Verified 01/09/21 13:53 Review of Systems Review of Systems: Constitutional : No Weight loss, No Fever, No Chills, No Night Sweats, No Fatigue, No Malaise ENT/Mouth : No Hearing loss, No Ear Pain, No Nasal Congestion, No Sinus Pain, No Hoarseness, No sore throat, No Rhinorrhea, No Swallowing Difficulty Eyes: No Eye Pain, No Swelling, No Redness, No Foreign Body, No Discharge, No Vision Changes Cardiovascular : Complaining of right-sided chest pain, torso pain on the right, No SOB, complaining of right-sided chest pain with deep inspirations, No Dyspnea on Exertion, No Orthopnea, No Edema, No Palpitations Respiratory : No Cough, No Sputum, No Wheezing, No Smoke Exposure, No Dyspnea Gastrointestinal : No Nausea, No Vomiting, No Diarrhea, No Constipation, No abdominal Pain, No Hematochezia, No Melena Genitourinary : no irregular bleeding, No Dysuria, No Urinary Frequency, No Hematuria, No Urinary Incontinence, No Urgency, No Flank Pain, No Urinary Flow Changes, No Hesitancy Musculoskeletal : No joint pain, No Myalgias, No Joint Swelling Skin : No Skin Lesions, No rash Neuro : No Weakness, No Numbness, No Paresthesias, No Loss of Consciousness, No Dizziness, No Headache Psych : No Anxiety/Panic, No Depression, No SI/HI/AH/VH, No Social Issues, Heme/Lymph: No Bruising, No Bleeding,No Lymphadenopathy Endocrine : No Polyuria, No Polydipsia, No Temperature Intolerance [facility] Past Medical History Medical History Acute laryngitis Allergic rhinitis Anemia Asthma Benign essential HTN Coronary artery disease Osteoporosis Primary osteoarthritis involving multiple joints Surgical History (Updated 02/05/21 @ 22:55 by Erlinda Patricio MD) History of cataract surgery History of D&C History of hand surgery History of heart artery stent History of kyphoplasty History of laminectomy S/P cardiac catheterization S/P TAVR (transcatheter aortic valve replacement) Family History Family History Father Hypertension Mother Thyroid cancer Sister Breast cancer Social History Social History Alcohol intake: never Patient Tobacco Use Status: Tobacco use Unknown Use of substances other than those prescribed or required for medical reasons: No Advance Directives: No Advance Directives Information Provided: No service: No Current occupational status: retired Physical Exam Vital Signs: Vital Signs: Last Vital Signs Temp 97.7 F 02/06/21 02:07 Pulse 65 02/06/21 02:07 Resp 16 02/06/21 02:07 BP 125/41 L 02/06/21 02:07 Pulse Ox 98 02/06/21 02:07 Body Mass Index 30.4 Appearance: Alert. Oriented X3. No acute distress. Eyes: Pupils equal, round and reactive to light. ENT: Pharynx normal. Neck: Normal inspection. Neck supple. No lymph nodes noted. No crepitus CVS: Normal heart rate and rhythm. Pulses normal. Normal S1 and S2 Respiratory: No respiratory distress. Breath sounds normal. No Wheezing. No rales Abdomen: Soft and nontender. No rigidity. No distention. Skin: Skin warm and dry. Normal skin color. Normal skin turgor. Extremities: No lower extremity edema. No lower extremity edema. No Lacerations. No Rash Neuro: Oriented X 3. No motor deficit. No sensory deficit. Moving all extermities. No slurred speech. Course Course Course Narrative: I discussed the EKG and elevated with Dr. oLuis. The procedure itself, should not be causing the chest pain that the patient is experiencing. At this time, musculoskeletal pain is more likely. However, patient has a significant cardiac history and recently had a TAVR. We will go ahead and admit the patient. Patient's dimer is elevated, CT scan for PE pending. Patient is on aspirin and clopidogrel, unlikely to have a PE, but cannot be ruled out yet. Patient will be admitted under observation, patient will likely need an echocardiogram per Dr. Louis Medical Decision Making Lab Data Result diagrams: 02/05/21 20:25 02/05/21 20:25 Labs: Lab Results 02/05/21 02/05/21 02/05/21 Range/Units 20:25 20:25 20:25 WBC 6.8 (4.8-10.8) X10*3/uL RBC 2.57 L (4.20-5.50) X10*6/uL Hgb 8.0 L (12.0-16.0) g/dl Hct 24.1 L (37-47) % MCV 93.8 (80-98) fL MCH 31.1 (27.0-33.0) pg MCHC 33.2 (31.0-35.0) g/dl RDW 15.0 (11.0-16.0) % Plt Count 130 L D (160-400) X10*3/uL MPV 9.9 (9.4-12.3) fL Immature Gran % (Auto) 0.3 (0.0-0.4) % Neut % (Auto) 52.8 (45-73) % Lymph % (Auto) 30.1 (20-40) % [place] % (Auto) 10.1 (2-11) % Eos % (Auto) 6.0 H (0-4) % Baso % (Auto) 0.7 (0-2) % Lymph # (Auto) 2.1 (1.2-4.9) X10*3/uL [place] # (Auto) 0.7 (0.1-1.2) X10*3/uL Eos # (Auto) 0.4 (0.0-0.4) X10*3/uL Baso # (Auto) 0.1 (0.0-0.2) X10*3/uL Abs Immat Gran (auto) 0.02 (0.00-0.03) X10*3/uL Absolute Neuts (auto) 3.6 (2.0-8.3) X10*3/uL Absolute Nucleated RBC 0.000 (0.0-0.012) X10*3/uL Nucleated RBC % (auto) 0.0 (0.0-0.2) /100WBC PT 12.4 (10.8-13.0) SEC INR 1.0 (0.9-1.1) APTT 33.3 (24.1-38.0) SEC D-Dimer 727 NG/ML Hold Blue Top SEE NOTE Sodium 140 (135-145) mmol/L Potassium 4.0 (3.3-5.1) mmol/L Chloride 110 H (96-108) mmol/L Carbon Dioxide 22 (22-29) mmol/L Anion Gap 12 (12-20) BUN 23 H (9-16) mg/dL Creatinine 1.10 (0.5-1.4) mg/dL Estim Creat Clear Calc 40.5 Estimated GFR 47 Random Glucose 125 H (60-115) mg/dL Calcium 8.5 (8.4-10.2) mg/dL Total Bilirubin 0.5 (0.0-1.0) mg/dL Direct Bilirubin 0.2 (0.0-0.5) mg/dL AST 46 H D (5-31) U/L ALT 28 (0-31) U/L Alkaline Phosphatase 81 D (39-117) U/L Troponin I High Sens (<3.5-17.0) ng/L Total Protein 6.2 L (6.5-8.0) g/dL Albumin 3.7 (3.5-5.0) g/dL Lipase 21 (8-78) U/L COVID-19 ([facility]) (Negative) COVID-19 Clin Com 02/05/21 02/05/21 02/05/21 Range/Units 20:25 23:28 23:28 WBC (4.8-10.8) X10*3/uL RBC (4.20-5.50) X10*6/uL Hgb (12.0-16.0) g/dl Hct (37-47) % MCV (80-98) fL MCH (27.0-33.0) pg MCHC (31.0-35.0) g/dl RDW (11.0-16.0) % Plt Count (160-400) X10*3/uL MPV (9.4-12.3) fL Immature Gran % (Auto) (0.0-0.4) % Neut % (Auto) (45-73) % Lymph % (Auto) (20-40) % [place] % (Auto) (2-11) % Eos % (Auto) (0-4) % Baso % (Auto) (0-2) % Lymph # (Auto) (1.2-4.9) X10*3/uL [place] # (Auto) (0.1-1.2) X10*3/uL Eos # (Auto) (0.0-0.4) X10*3/uL Baso # (Auto) (0.0-0.2) X10*3/uL Abs Immat Gran (auto) (0.00-0.03) X10*3/uL Absolute Neuts (auto) (2.0-8.3) X10*3/uL Absolute Nucleated RBC (0.0-0.012) X10*3/uL Nucleated RBC % (auto) (0.0-0.2) /100WBC PT (10.8-13.0) SEC INR (0.9-1.1) APTT (24.1-38.0) SEC D-Dimer NG/ML Hold Blue Top Sodium (135-145) mmol/L Potassium (3.3-5.1) mmol/L Chloride (96-108) mmol/L Carbon Dioxide (22-29) mmol/L Anion Gap (12-20) BUN (9-16) mg/dL Creatinine (0.5-1.4) mg/dL Estim Creat Clear Calc Estimated GFR Random Glucose (60-115) mg/dL Calcium (8.4-10.2) mg/dL Total Bilirubin (0.0-1.0) mg/dL Direct Bilirubin (0.0-0.5) mg/dL AST (5-31) U/L ALT (0-31) U/L Alkaline Phosphatase (39-117) U/L Troponin I High Sens 54.5 H* 58.2 H* (<3.5-17.0) ng/L Total Protein (6.5-8.0) g/dL Albumin (3.5-5.0) g/dL Lipase (8-78) U/L COVID-19 ([facility]) Negative (Negative) COVID-19 Clin Com See Note Imaging Data CTA for PE: Radiologist's impression: FINDINGS: QUALITY OF STUDY/CONTRAST BOLUS: Satisfactory. PULMONARY ARTERIES: No central or segmental pulmonary emboli. THORACIC AORTA: No aneurysm or dissection. LUNG: Expiratory phase image acquisition. There are some geographic bilateral groundglass opacities related to air trapping in the areas of subsegmental atelectasis. No compelling evidence of acute pneumonitis. No parenchymal consolidation or suspicious pulmonary nodules. PLEURA: No pleural effusion or pneumothorax. MEDIASTINUM: Cardiomegaly. No pericardial effusion. TAVR. No evidence of septal bowing or right heart strain. No reflux of contrast into the hepatic veins to suggest elevated right heart pressures. No mediastinal or hilar adenopathy. CHEST WALL/AXILLA: No axillary or internal mammary lymphadenopathy. OSSEOUS STRUCTURES: No acute or suspicious osseous abnormality. c severe degenerative changes of the bilateral glenohumeral joints. UPPER ABDOMEN: There is cholelithiasis and gallbladder distention, similar in appearance to the prior exam. CT/CT angio chest PE protocol IMPRESSION: No evidence of pulmonary embolism. Cardiomegaly without evidence of decompensated heart failure. Cholelithiasis and gallbladder distention, similar in appearance to prior. If there is concern for cholecystitis, recommend right upper quadrant ultrasound. VTE: negative ECG Data Attestation: I personally reviewed and interpreted this ECG as follows: (Sinus rhythm, heart rate 62, nonspecific ST changes in lead 1 and aVL, QTC 428) Scores Heart Score History: -0- slightly suspicious ECG: -0- normal Age: -2- > or = 65 Risk factory: -2- 3 or more risk factors or treated atherosclerosis Troponin: -2- > or = 3x normal limit Score: 6 Risk: 16.6% Discharge Plan Discharge Clinical Impression: Chest pain Qualifiers: Chest pain type: unspecified Qualified Code(s): R07.9 - Chest pain, unspecified Patient Disposition: Admitted As Inpatient
[2021-02-05 22:36] LABS: Prothrombin Time 12.4 SEC (10.8-13.0)
[2021-02-05 22:39] LABS: D Dimer 727 NG/ML; Partial Thromboplastin Time 33.3 SEC (24.1-38.0)
[2021-02-05] MEDS: Aspirin Enteric Coated 325 MG TABLET.DR PO (22:46)
[2021-02-06] VITALS (12 sets, daily range): BP systolic 125–174; BP diastolic 36–65; PULSE 65–76; RESP 12–18; TEMP 36.3–36.9; O2SAT 95–100
[2021-02-06] MEDS: iohexoL 350 MG/ML 100 ML INFUS..BTL 65 ML IV (00:03)
[2021-02-06 00:07] LABS: Troponin-I High Sensitivity 58.2 ng/L (<3.5-17.0)
[2021-02-06 00:17] LABS: COVID-19 Test Negative (Negative); IDNOW Serial# 9DD0AD1C
[2021-02-06 00:22] LABS: Glucose Urine UA NEG (NEG); Leukocyte Esterase Urine 1+ (NEG); Nitrite Urine NEG (NEG); Specific Gravity - Urine <= 1.005 (1.005-1.025); UACC Culture Trigger YES; Urine Blood NEG (NEG); Urine Ketones NEG (NEG); Urine Protein NEG (NEG-TRACE)
[2021-02-06 00:26] LABS: Appearance Urine CLEAR; Color Urine YELLOW
[2021-02-06 00:33] LABS: Bacteria Urine TRACE /LPF; RBC Urine 0-2 /HPF (0); Squamous Epithelial Cell Urine TRACE /LPF
--- NOTE | 2021-02-06 02:37 | CA_ITS ---
Transthoracic Echocardiogram Patient (Last, First, Middle): Beena Davison, Gender: Female Date of : 1935 Age: 85 Procedure Date: 02/06/2021 Procedure Type: Transthoracic Echocardiogram Location: ER Height: 165.1 cm Weight: 83.01 kg BSA: 1.90 m2 Heart Rate: bpm BP: 136 / 36 mmHg Vibration Engineer: Referring MD: Tresa Harley MD Symptoms: chest pain, recent tavr Study Quality: Good ECG Rhythm: Sinus Conclusions: - The left ventricular systolic function is normal. The visually estimated ejection fraction is between 60-65%. - The basal inferior and mid inferior segments are akinetic. - A bioprosthetic aortic valve is present. The prosthetic aortic valve appears to be functioning normally. - There is mild mitral annular calcification. There is mild mitral valve regurgitation. Findings Left Ventricle Normal left ventricular cavity size. There is normal left ventricular wall thickness. The left ventricular systolic function is normal. The visually estimated ejection fraction is between 60-65%. There is evidence of regional wall motion abnormalities. E/E prime ratio is >15, consistent with elevated filling pressures. Evidence suggests grade I (mild) diastolic dysfunction. Wall Motion Rest Echo Findings The basal inferior and mid inferior segments are akinetic. Right Ventricle Normal right ventricular cavity size and systolic function. Atria The left atrium is mildly dilated. The right atrium is normal in size. Aortic Valve A bioprosthetic aortic valve is present. The prosthetic aortic valve appears to be functioning normally. The mean gradient is 17 mmHg. Trace valvular and para-valvular regurgitation. Mitral Valve There is mild mitral annular calcification. There is mild mitral valve regurgitation. There is trace mitral valve stenosis. Pulmonic Valve The pulmonic valve was not well visualized. There is trace pulmonic valve regurgitation. Tricuspid Valve Normal tricuspid valve structure. There is trace tricuspid valve regurgitation. The right ventricular systolic pressure is 37 mmHg. Mild pulmonary hypertension is present. Great Vessels The aorta was not well visualized. Venous The inferior vena cava was not well visualized. Pericardium/Pleural There is no evidence of pericardial effusion. Prior Study Comparison Changes noted compared to prior study dated: 11/22/2020. s/p TAVR. Measurements 2D Linear Measurements LVOT Diam: 2.00 3.0+(-)1.3 cm Mitral Valve MV Pk E: 0.97 MV PK A: 0.93 MV Decel Time: 195.00 E/A: 1.00 E'Lateral: 12.80 E'Medial: 3.92 E/E' Med: 24.80 E/E' Lat: 7.60 PHT: 57.00 MVA PHT: 3.86 Decel [place]: 4.98 Aortic Valve AoV Pk Tanvir: 3.13 AoV Mn Tanvir: 1.83 AoV VTI: 0.71 AoV Pk Grad: 39.00 Aov Mn Grad: 17.00 SIDRA Cont.VTI: 1.08 LVOT LVOT Pk Tanvir: 0.87 LVOT Mn Tanvir: 0.60 LVOT VTI: 0.24 LVOT Pk Grad: 3.00 LVOT Mn Grad: 2.00 LVOT Diam: 2.00 LVOT Area: 3.14 Diastolic Function MV Pk E: 0.97 MV Pk A: 0.93 E/A: 1.00 E'Medial: 3.92 E/E' Med: 24.80 E' Laterial: 12.80 E/E' Lat: 7.60 Tricuspid Valve TR Pk Tanvir: 2.75 TR Pk Grad: 30.00 RA Press: 3.00 RVSP: 37.00 Pulmonary Valve PV Pk Tanvir: 1.03 Peak PV Grad: 4.00 Updated in Other Vendor System with Status of Final Edu Louis MD electronically signed on 02/06/2021 12:38:42 PM with status of Final
[2021-02-06] MEDS: 0.9 % Sodium Chloride Flush 3 ML SYRINGE IVFLUSH ×4 (03:15→23:23)
[2021-02-06] MEDS: Heparin Sodium,Porcine 5,000 UNIT/ML VIAL 5000 UNIT SUBCUT ×2 (03:23→15:55)
--- NOTE | 2021-02-06 03:41 | PC.NURSE ---
Report taken from Adi, this RN resuming care. Pt medicated per OCT. Pt ambulating to the bathroom with a steady gait. VSS at this time. Pt resting in bed, aware of plan to admit. Continue to monitor.
--- NOTE | 2021-02-06 05:00 | P.HPHOSP_ITS ---
History of Present Illness Date of Service: 02/05/21 Chief Complaint: Right-sided chest pain Past medical history of coronary artery disease, CHF, severe status post TAVR on 01/31, HTN, HLD, severe mitral valve regurg, osteoarthritis, osteoporosis, chronic anemia, who presents to the hospital with complaints of right-sided chest pain. Patient recently underwent TAVR, and immediately after felt this right-sided chest pain that is localized to below the right breast, radiating to the mid axillary region, to the right arm as well as to the right shoulder blade. Patient reports the pain to be a out of 10, worse with movement, laying down, coughing and taking deep breaths. Relieved slightly with Tylenol, feels cramping and also shooting. She denies any fever or chills, no abdominal pain, no palpitations, no shortness of breath, no nausea or vomiting, no diarrhea constipation, no urinary symptoms and no lower extremity edema. No numbness tingling or weakness. Because of Her recent TAVR as well as her history of coronary artery disease, cardiology wanted patient to come in for evaluation echocardiogram in the morning. On arrival to the ED patient's vital significant for temp of 98.6?, heart rate of 64, respiratory rate of 18, blood pressure of 113/58, satting 98% on room air Labs are significant for WBC count of 6.8, hemoglobin of 8 she is chronically anemic, PT of 12.4 INR of 1.0, troponin of 54.5, increased 58.2 with no delta. UA that is positive for leukocyte Estrace with slight WBC and no nitrites. Chest CT angiogram shows no evidence of pulmonary embolism. Cardiomegaly without evidence of decompensated heart failure. Cholelithiasis and gallbladder distension which is similar to prior. Review of Systems Review of Systems: Yes all other systems are reviewed and are negative FORMERLY [facility], 1928–1983 Medical History Acute laryngitis Allergic rhinitis Anemia Asthma Benign essential HTN Coronary artery disease Osteoporosis Primary osteoarthritis involving multiple joints Family History Father Hypertension Mother Thyroid cancer Sister Breast cancer Surgical History History of cataract surgery History of D&C History of hand surgery History of heart artery stent History of kyphoplasty History of laminectomy S/P cardiac catheterization S/P TAVR (transcatheter aortic valve replacement) Social History Alcohol intake: never Patient Tobacco Use Status: Tobacco use Unknown Use of substances other than those prescribed or required for medical reasons: No Advance Directives: No Advance Directives Information Provided: No service: No Current occupational status: retired Meds Allergies Allergy/AdvReac Type Severity Reaction Status Date / Time acetaminophen Allergy Intermediate Nausea and Verified 01/09/21 13:53 [Tylenol-Codeine] Vomiting amoxicillin [AMOXICILLIN] Allergy Intermediate RASH Verified 01/09/21 13:53 cephalexin Allergy Intermediate Nausea Verified 01/09/21 13:53 Erythromycin Allergy Intermediate Nausea and Verified 01/09/21 13:53 Vomiting meloxicam Allergy Intermediate Nausea and Verified 01/09/21 13:53 Vomiting meperidine [Demerol] Allergy Intermediate Nausea and Verified 01/09/21 13:53 Vomiting nitrofurantoin Allergy Intermediate Rash Verified 01/09/21 13:53 [From MACROBID] Penicillins Allergy Intermediate Rash Verified 01/09/21 13:53 Sulfa (Sulfonamide Allergy Intermediate RASH Verified 01/09/21 13:53 Antibiotics) [SULFA(SULFONAMIDE ANTIBIOTICS)] tramadol Allergy Intermediate Nausea and Verified 01/09/21 13:53 Vomiting codeine [CODEINE] AdvReac Intermediate NAUSEA Verified 01/09/21 13:53 Active Medications: Current Medications Generic Name Dose Route Start Last Admin Trade Name Freq PRN Reason Stop Dose Admin Acetaminophen 650 mg 02/06/21 02:37 Acetaminophen 325 Mg Tablet PO Q6H PRN Pain, Mild (Pain Scale 1-3) Docusate Sodium 100 mg 02/06/21 02:37 Docusate Sodium 100 Mg Capsule PO DAILY PRN Constipation Heparin Sodium (Porcine) 5,000 unit 02/06/21 03:00 02/06/21 03:23 Heparin Sodium,Porcine 5,000 Unit/Ml Vial SUBCUT 5,000 unit Q12H ERICK Administration Ondansetron HCl 4 mg 02/06/21 02:37 Ondansetron Hcl 4 Mg/2 Ml Vial IVPUSH Q8H PRN Nausea and Vomiting Oxycodone HCl 5 mg 02/06/21 02:37 Oxycodone Hcl Immed Release 5 Mg Tablet PO Q6H PRN Pain, Severe (Pain Scale 7-10) Sodium Chloride 3 ml 02/06/21 02:37 02/06/21 03:15 0.9 % Sodium Chloride Flush 3 Ml Syringe IVFLUSH 3 ml QSHIFT [facility] Administration Home Medications Medication Instructions Recorded Confirmed Last Taken Type anastrozole 1 mg tablet 1 mg PO DAILY 07/10/20 01/01/21 Unknown History cholecalciferol (vitamin D3) 25 25 mcg PO DAILY 07/10/20 01/01/21 Unknown History mcg (1,000 unit) capsule fluticasone propionate 220 2 puff INHALATION BID 07/10/20 01/01/21 Unknown History mcg/actuation HFA aerosol inhaler omeprazole 20 mg capsule,delayed 20 mg PO DAILY 07/10/20 01/01/21 Unknown History release alendronate 70 mg PO MO@0630 11/22/20 01/01/21 Unknown History albuterol sulfate 90 mcg/actuation 2 puff INHALATION Q6H PRN 12/17/20 01/01/21 Unknown History aerosol inhaler lysine 1,000 mg tablet 1,000 mg PO DAILY 12/17/20 01/01/21 Unknown History acetaminophen 500 mg tablet 500 mg PO Q6H PRN 12/31/20 01/01/21 Unknown History calcium carbonate 600 mg calcium 600 mg PO DAILY 12/31/20 01/01/21 Unknown History (1,500 mg) tablet cod liver oil 1 cap PO DAILY 12/31/20 01/01/21 Unknown History ferrous sulfate 325 mg (65 mg 325 mg PO DAILY 12/31/20 01/01/21 Unknown History iron) tablet fexofenadine 180 mg tablet 180 mg PO DAILY 12/31/20 01/01/21 Unknown History glucosam 750 mg-chondroi 100 1 tab PO BID tab 12/31/20 01/01/21 Unknown History mg-hyalur 1.65 mg-CF borate 108 mg tablet pyridoxine (vitamin B6) 100 mg 100 mg PO DAILY tab 12/31/20 01/01/21 Unknown History tablet vitamin B complex 1 tab PO DAILY 12/31/20 01/01/21 Unknown History vitamin E succinate 400 unit tablet 400 unit PO DAILY 12/31/20 01/01/21 Unknown History nifedipine 30 mg tablet,extended 30 mg PO DAILY 01/01/21 01/01/21 Unknown History release Physical Exam Vital Signs and Narrative: Vital Signs: Last Vital Signs Temp 97.7 F 02/06/21 02:07 Pulse 65 02/06/21 02:07 Resp 16 02/06/21 02:07 BP 125/41 L 02/06/21 02:07 Pulse Ox 98 02/06/21 02:07 Body Mass Index 30.4 Const: General: cooperative and no acute distress Orientation/consciousness: patient oriented x3 Eyes: General: appearance normal, both eyes and all related structures Chest: Other: Patient very tender to even slight touch of her right chest, Resp: Effort & Inspection: normal respiratory effort and able to speak in complete sentences Cardio: Rate: regular rate Rhythm: regular rhythm GI: Other: Right upper quadrant tenderness Palpation (GI): Soft to palpation Auscultation: normal bowel sounds Skin: General skin exam: no rashes or lesions noted Neuro: General: patient oriented x3 Cognition (Neuro): normal cognition Extrem: General: Yes normal to inspection and Yes no pedal edema Results Labs CBC and Chem 7: 02/05/21 20:25 02/05/21 20:25 Labs: Laboratory Results - last 24 hr 02/05/21 02/05/21 02/05/21 20:25 20:25 20:25 MCV 93.8 MCH 31.1 MCHC 33.2 RDW 15.0 Plt Count 130 L D MPV 9.9 Immature Gran % (Auto) 0.3 Neut % (Auto) 52.8 Lymph % (Auto) 30.1 [place] % (Auto) 10.1 Eos % (Auto) 6.0 H Baso % (Auto) 0.7 Lymph # (Auto) 2.1 [place] # (Auto) 0.7 Eos # (Auto) 0.4 Baso # (Auto) 0.1 Abs Immat Gran (auto) 0.02 Absolute Neuts (auto) 3.6 Absolute Nucleated RBC 0.000 Nucleated RBC % (auto) 0.0 PT 12.4 INR 1.0 APTT 33.3 D-Dimer 727 Hold Blue Top SEE NOTE Anion Gap 12 Estim Creat Clear Calc 40.5 Estimated GFR 47 Random Glucose 125 H Calcium 8.5 Total Bilirubin 0.5 Direct Bilirubin 0.2 AST 46 H D ALT 28 Alkaline Phosphatase 81 D Troponin I High Sens Total Protein 6.2 L Albumin 3.7 Lipase 21 Urine Color Urine Appearance Urine pH Ur Specific [place] Urine Protein Urine Glucose (UA) Urine Ketones Urine Blood Urine Nitrite Ur Leukocyte Esterase Urine RBC Urine WBC Ur Squamous Epith Cells Urine Bacteria COVID-19 ([facility]) COVID-19 Clin Com 02/05/21 02/05/21 02/05/21 20:25 23:28 23:28 MCV MCH MCHC RDW Plt Count MPV Immature Gran % (Auto) Neut % (Auto) Lymph % (Auto) [place] % (Auto) Eos % (Auto) Baso % (Auto) Lymph # (Auto) [place] # (Auto) Eos # (Auto) Baso # (Auto) Abs Immat Gran (auto) Absolute Neuts (auto) Absolute Nucleated RBC Nucleated RBC % (auto) PT INR APTT D-Dimer Hold Blue Top Anion Gap Estim Creat Clear Calc Estimated GFR Random Glucose Calcium Total Bilirubin Direct Bilirubin AST ALT Alkaline Phosphatase Troponin I High Sens 54.5 H* 58.2 H* Total Protein Albumin Lipase Urine Color Urine Appearance Urine pH Ur Specific [place] Urine Protein Urine Glucose (UA) Urine Ketones Urine Blood Urine Nitrite Ur Leukocyte Esterase Urine RBC Urine WBC Ur Squamous Epith Cells Urine Bacteria COVID-19 ([facility]) Negative COVID-19 Clin Com See Note 02/06/21 00:08 MCV MCH MCHC RDW Plt Count MPV Immature Gran % (Auto) Neut % (Auto) Lymph % (Auto) [place] % (Auto) Eos % (Auto) Baso % (Auto) Lymph # (Auto) [place] # (Auto) Eos # (Auto) Baso # (Auto) Abs Immat Gran (auto) Absolute Neuts (auto) Absolute Nucleated RBC Nucleated RBC % (auto) PT INR APTT D-Dimer Hold Blue Top Anion Gap Estim Creat Clear Calc Estimated GFR Random Glucose Calcium Total Bilirubin Direct Bilirubin AST ALT Alkaline Phosphatase Troponin I High Sens Total Protein Albumin Lipase Urine Color YELLOW Urine Appearance CLEAR Urine pH 6.0 Ur Specific [place] <= 1.005 Urine Protein NEG Urine Glucose (UA) NEG Urine Ketones NEG Urine Blood NEG Urine Nitrite NEG Ur Leukocyte Esterase 1+ H Urine RBC 0-2 Urine WBC 1-4 Ur Squamous Epith Cells TRACE Urine Bacteria TRACE COVID-19 ([facility]) COVID-19 Clin Com Imaging Radiologist's Impressions: Impressions Chest X-Ray 02/05/21 16:23 IMPRESSION: Clear lungs with elevated right hemidiaphragm. Previously visualized bilateral lower lobe dependent infiltrate/atelectasis has improved Chest CTA 02/05/21 22:56 IMPRESSION: No evidence of pulmonary embolism. Cardiomegaly without evidence of decompensated heart failure. Cholelithiasis and gallbladder distention, similar in appearance to prior. If there is concern for cholecystitis, recommend right upper quadrant ultrasound. VTE: negative Assessment and Plan (1) Chest pain: Qualifiers: Chest pain type: unspecified Qualified Code(s): R07.9 - Chest pain, unspecified Status: Acute (2) Cholelithiasis: Status: Acute (3) Aortic stenosis, severe: Status: Acute (4) S/P TAVR (transcatheter aortic valve replacement): Status: Acute This is an 85-year-old female presents to the hospital with right-sided chest pain that is radiating to the right shoulder and right arm. Recent TAVR. # right-sided chest pain - lower chest possibly secondary to right upper quadrant abdominal pain in the setting of cholelithiasis and distended gallbladder - cholecystitis pain typically radiates to the right shoulder which pain in this patient does the same - troponin slightly elevated with no delta - no EKG changes suggestive of ACS - will consult Cardiology - scheduled for echocardiogram in a.m. # cholelithiasis - will obtain abdominal ultrasound to rule out cholecystitis as a cause of her right-sided chest pain # status post TAVR - continue her home medications - cardiology on consult I am unable to reconcile her other medical problems as her med review has not been completed. Multiple calls have been made to the ED to help in this regard DVT prophylaxis: Heparin subQ
--- NOTE | 2021-02-06 05:53 | PC.NURSE ---
Pt off to U/S on hospital bed. VSS.
--- NOTE | 2021-02-06 06:15 | PC.NURSE ---
Plan for labs to be obtained and to be medicated upon return from U/S.
[2021-02-06] MEDS: cefTRIAXone sodium 1 GM in 0.9 % Sodium Chloride 50 ML IV (06:40)
--- NOTE | 2021-02-06 06:40 | PC.NURSE ---
Pt returns from U/S. Medicated per MAR with Rocephin. Phleb at bedside for labs.
[2021-02-06 06:49] LABS: MANUAL DIFF FLAG NO
[2021-02-06 06:59] LABS: Basophils Absolute Auto 0.1 X10*3/uL (0.0-0.2); Basophils Percent Auto 0.7 % (0-2); Eosinophils Absolute Auto 0.5 X10*3/uL (0.0-0.4); Eosinophils Percent Auto 6.4 % (0-4); Hematocrit 21.8 % (37-47); Hemoglobin 7.2 g/dl (12.0-16.0); Imm Gran Abs Auto 0.03 X10*3/uL (0.00-0.03); Imm Gran Pct Auto 0.4 % (0.0-0.4); Lymphocytes Absolute Auto 2.5 X10*3/uL (1.2-4.9); Mean Corpuscular Hemoglobin 30.5 pg (27.0-33.0); Mean Corpuscular Volume 92.4 fL (80-98); Mean Platelet Volume 10.1 fL (9.4-12.3); Monocytes Absolute Auto 0.7 X10*3/uL (0.1-1.2); Monocytes Percent Auto 8.9 % (2-11); Neutrophils Absolute Auto 3.8 X10*3/uL (2.0-8.3); Neutrophils Percent Auto 50.6 % (45-73); Platelet Count 119 X10*3/uL (160-400); Red Blood Count 2.36 X10*6/uL (4.20-5.50); White Blood Count 7.5 X10*3/uL (4.8-10.8)
--- NOTE | 2021-02-06 07:07 | PC.NURSE ---
Patient is resting quietly in bed without noted distress. Pt currently denies any pain or discomfort.
[2021-02-06 07:22] LABS: Anion Gap 10 (12-20); Blood Urea Nitrogen 20 mg/dL (9-16); Calcium 8.1 mg/dL (8.4-10.2); Carbon Dioxide 22 mmol/L (22-29); Chloride 110 mmol/L (96-108); Creatinine Clr Calc Pharmacy 47.9; Estimated Glomerular Filt Rate 57; Glucose Random 97 mg/dL (60-115); Potassium 4.3 mmol/L (3.3-5.1); Sodium 138 mmol/L (135-145)
--- NOTE | 2021-02-06 08:08 | PC.NURSE ---
PT AMBULATED TO BATHROOM WITH ONE ASSIST, STEADY GAIT. PT ASSISTED BACK TO BED.
--- NOTE | 2021-02-06 10:31 | P.CONCA_ITS ---
History of Present Illness History of Present Illness Date of Service: 02/06/21 Consult reason: chest pain Chief complaint: Chest Pain Narrative: This is a cardiology consultation regarding chest pain. Patient actually had transcatheter aortic valve replacement last . She states that since Thursday she has been noticing discomfort in the right chest. She points to the area in the lower ribs and underneath the right breast. She states that it travels along the ribs to the back and into his shoulder area. She feels worse when she is lying down but feels better when she is sitting up. Also breathing makes his pain worse. Does not really sound anginal at all. She otherwise feels okay. Review of Systems Review of Systems: Yes all other systems are reviewed and are negative Cardiovascular: Cardiovascular: Reports as per HPI, Reports no additional cardiovascular complaints, Denies acrocyanosis, Denies cool extremities, Denies painful fingertips, Reports chest pain, Reports chest pain at rest, Denies diaphoresis, Denies syncope, Denies irregular heart rhythm, Denies claudication, Denies leg edema, Denies lightheadedness, Denies palpitations and Denies dyspnea Respiratory: Respiratory: Denies dyspnea Neurologic: Denies syncope Endocrine: Endocrine: Denies palpitations PMFSH Past Medical History Medical History Acute laryngitis Allergic rhinitis Anemia Asthma Benign essential HTN Coronary artery disease Osteoporosis Primary osteoarthritis involving multiple joints Family History Family History Father Hypertension Mother Thyroid cancer Sister Breast cancer Surgical History Surgical History History of cataract surgery History of D&C History of hand surgery History of heart artery stent History of kyphoplasty History of laminectomy S/P cardiac catheterization S/P TAVR (transcatheter aortic valve replacement) Social History Social History Alcohol intake: never Patient Tobacco Use Status: Tobacco use Unknown Use of substances other than those prescribed or required for medical reasons: No Advance Directives: No Advance Directives Information Provided: No service: No Current occupational status: retired Meds Allergies Allergy/AdvReac Type Severity Reaction Status Date / Time acetaminophen Allergy Intermediate Nausea and Verified 01/09/21 13:53 [Tylenol-Codeine] Vomiting amoxicillin [AMOXICILLIN] Allergy Intermediate RASH Verified 01/09/21 13:53 cephalexin Allergy Intermediate Nausea Verified 01/09/21 13:53 Erythromycin Allergy Intermediate Nausea and Verified 01/09/21 13:53 Vomiting meloxicam Allergy Intermediate Nausea and Verified 01/09/21 13:53 Vomiting meperidine [Demerol] Allergy Intermediate Nausea and Verified 01/09/21 13:53 Vomiting nitrofurantoin Allergy Intermediate Rash Verified 01/09/21 13:53 [From MACROBID] Penicillins Allergy Intermediate Rash Verified 01/09/21 13:53 Sulfa (Sulfonamide Allergy Intermediate RASH Verified 01/09/21 13:53 Antibiotics) [SULFA(SULFONAMIDE ANTIBIOTICS)] tramadol Allergy Intermediate Nausea and Verified 01/09/21 13:53 Vomiting codeine [CODEINE] AdvReac Intermediate NAUSEA Verified 01/09/21 13:53 Active Medications: Current Medications Generic Name Dose Route Start Last Admin Trade Name Freq PRN Reason Stop Dose Admin Acetaminophen 650 mg 02/06/21 02:37 Acetaminophen 325 Mg Tablet PO Q6H PRN Pain, Mild (Pain Scale 1-3) Docusate Sodium 100 mg 02/06/21 02:37 Docusate Sodium 100 Mg Capsule PO DAILY PRN Constipation Heparin Sodium (Porcine) 5,000 unit 02/06/21 03:00 02/06/21 03:23 Heparin Sodium,Porcine 5,000 Unit/Ml Vial SUBCUT 5,000 unit Q12H ERICK Administration Ceftriaxone Sodium 1 gm/ 50 mls @ 100 mls/hr 02/06/21 06:00 02/06/21 07:08 Sodium Chloride IV Infused Q24H ERICK Infusion Ondansetron HCl 4 mg 02/06/21 02:37 Ondansetron Hcl 4 Mg/2 Ml Vial IVPUSH Q8H PRN Nausea and Vomiting Oxycodone HCl 5 mg 02/06/21 02:37 Oxycodone Hcl Immed Release 5 Mg Tablet PO Q6H PRN Pain, Severe (Pain Scale 7-10) Sodium Chloride 3 ml 02/06/21 02:37 02/06/21 03:15 0.9 % Sodium Chloride Flush 3 Ml Syringe IVFLUSH 3 ml QSHIFT ERICK Administration Home Medications Medication Instructions Recorded Confirmed Last Taken Type anastrozole 1 mg tablet 1 mg PO DAILY 07/10/20 02/06/21 Unknown History cholecalciferol (vitamin D3) 25 25 mcg PO DAILY 07/10/20 02/06/21 Unknown History mcg (1,000 unit) capsule fluticasone propionate 220 2 puff INHALATION BID 07/10/20 02/06/21 Unknown History mcg/actuation HFA aerosol inhaler omeprazole 20 mg capsule,delayed 20 mg PO DAILY 07/10/20 01/01/21 Unknown History release alendronate 70 mg PO MO@0630 11/22/20 02/06/21 Unknown History albuterol sulfate 90 mcg/actuation 2 puff INHALATION Q6H PRN 12/17/20 01/01/21 Unknown History aerosol inhaler lysine 1,000 mg tablet 1,000 mg PO DAILY 12/17/20 01/01/21 Unknown History acetaminophen 500 mg tablet 500 mg PO Q6H PRN 12/31/20 01/01/21 Unknown History calcium carbonate 600 mg calcium 600 mg PO DAILY 12/31/20 01/01/21 Unknown History (1,500 mg) tablet cod liver oil 1 cap PO DAILY 12/31/20 02/06/21 Unknown History ferrous sulfate 325 mg (65 mg 325 mg PO DAILY 12/31/20 02/06/21 Unknown History iron) tablet fexofenadine 180 mg tablet 180 mg PO DAILY 12/31/20 02/06/21 Unknown History glucosam 750 mg-chondroi 100 1 tab PO BID tab 12/31/20 01/01/21 Unknown History mg-hyalur 1.65 mg-CF borate 108 mg tablet pyridoxine (vitamin B6) 100 mg 100 mg PO DAILY tab 12/31/20 02/06/21 Unknown History tablet vitamin B complex 1 tab PO DAILY 12/31/20 02/06/21 Unknown History vitamin E succinate 400 unit tablet 400 unit PO DAILY 12/31/20 02/06/21 Unknown History nifedipine 30 mg tablet,extended 30 mg PO DAILY 01/01/21 01/01/21 Unknown History release Physical Exam Vital Signs: Vital Signs: Last Vital Signs Temp 98.4 F 02/06/21 07:06 Pulse 72 02/06/21 09:45 Resp 17 02/06/21 09:45 BP 141/51 H 02/06/21 09:45 Pulse Ox 98 02/06/21 09:45 Body Mass Index 30.4 Const: General: cooperative, comfortable and no acute distress Orientation/consciousness: patient oriented x3 HENMT: Other: Unremarkable Neck: Neck: Yes normal visual inspection Chest: Chest palpation & inspection: normal inspection of the chest Resp: Auscultation: clear to auscultation bilaterally, no crackles and no wheezes Cardio: Jugular venous distension: no JVD Palpation: normal PMI Heart sounds: S1 normal heart sound present, S2 normal heart sound present, no gallops, Murmur heart sound present systolic early, I/ and at the right sternal border and no rubs GI: Palpation (GI): Soft to palpation Back/Spine/Pelvis: Other: unremarkable Skin: General skin exam: no rashes or lesions noted Neuro: General: patient oriented x3 Extrem: General: Yes no clubbing, cyanosis or edema Psych: Mental Status: mental status grossly normal Results Labs and Meds Result diagrams: 02/06/21 06:42 02/06/21 06:42 Lab results: Laboratory Results - last 24 hr 02/05/21 02/05/21 02/05/21 20:25 20:25 20:25 WBC 6.8 RBC 2.57 L Hgb 8.0 L Hct 24.1 L MCV 93.8 MCH 31.1 MCHC 33.2 RDW 15.0 Plt Count 130 L D MPV 9.9 Immature Gran % (Auto) 0.3 Neut % (Auto) 52.8 Lymph % (Auto) 30.1 [place] % (Auto) 10.1 Eos % (Auto) 6.0 H Baso % (Auto) 0.7 Lymph # (Auto) 2.1 [place] # (Auto) 0.7 Eos # (Auto) 0.4 Baso # (Auto) 0.1 Abs Immat Gran (auto) 0.02 Absolute Neuts (auto) 3.6 Absolute Nucleated RBC 0.000 Nucleated RBC % (auto) 0.0 PT 12.4 INR 1.0 APTT 33.3 D-Dimer 727 Hold Blue Top SEE NOTE Sodium 140 Potassium 4.0 Chloride 110 H Carbon Dioxide 22 Anion Gap 12 BUN 23 H Creatinine 1.10 Estim Creat Clear Calc 40.5 Estimated GFR 47 Random Glucose 125 H Calcium 8.5 Total Bilirubin 0.5 Direct Bilirubin 0.2 AST 46 H D ALT 28 Alkaline Phosphatase 81 D Troponin I High Sens Total Protein 6.2 L Albumin 3.7 Lipase 21 Urine Color Urine Appearance Urine pH Ur Specific [place] Urine Protein Urine Glucose (UA) Urine Ketones Urine Blood Urine Nitrite Ur Leukocyte Esterase Urine RBC Urine WBC Ur Squamous Epith Cells Urine Bacteria COVID-19 ([facility]) COVID-19 Clin Com 02/05/21 02/05/21 02/05/21 20:25 23:28 23:28 WBC RBC Hgb Hct MCV MCH MCHC RDW Plt Count MPV Immature Gran % (Auto) Neut % (Auto) Lymph % (Auto) [place] % (Auto) Eos % (Auto) Baso % (Auto) Lymph # (Auto) [place] # (Auto) Eos # (Auto) Baso # (Auto) Abs Immat Gran (auto) Absolute Neuts (auto) Absolute Nucleated RBC Nucleated RBC % (auto) PT INR APTT D-Dimer Hold Blue Top Sodium Potassium Chloride Carbon Dioxide Anion Gap BUN Creatinine Estim Creat Clear Calc Estimated GFR Random Glucose Calcium Total Bilirubin Direct Bilirubin AST ALT Alkaline Phosphatase Troponin I High Sens 54.5 H* 58.2 H* Total Protein Albumin Lipase Urine Color Urine Appearance Urine pH Ur Specific [place] Urine Protein Urine Glucose (UA) Urine Ketones Urine Blood Urine Nitrite Ur Leukocyte Esterase Urine RBC Urine WBC Ur Squamous Epith Cells Urine Bacteria COVID-19 ([facility]) Negative COVID-19 Clin Com See Note 02/06/21 02/06/21 02/06/21 00:08 06:42 06:42 WBC 7.5 RBC 2.36 L Hgb 7.2 L Hct 21.8 L MCV 92.4 MCH 30.5 MCHC 33.0 RDW 15.0 Plt Count 119 L MPV 10.1 Immature Gran % (Auto) 0.4 Neut % (Auto) 50.6 Lymph % (Auto) 33.0 [place] % (Auto) 8.9 Eos % (Auto) 6.4 H Baso % (Auto) 0.7 Lymph # (Auto) 2.5 [place] # (Auto) 0.7 Eos # (Auto) 0.5 H Baso # (Auto) 0.1 Abs Immat Gran (auto) 0.03 Absolute Neuts (auto) 3.8 Absolute Nucleated RBC 0.000 Nucleated RBC % (auto) 0.0 PT INR APTT D-Dimer Hold Blue Top Sodium 138 Potassium 4.3 Chloride 110 H Carbon Dioxide 22 Anion Gap 10 L BUN 20 H Creatinine 0.93 Estim Creat Clear Calc 47.9 Estimated GFR 57 Random Glucose 97 Calcium 8.1 L Total Bilirubin Direct Bilirubin AST ALT Alkaline Phosphatase Troponin I High Sens Total Protein Albumin Lipase Urine Color YELLOW Urine Appearance CLEAR Urine pH 6.0 Ur Specific [place] <= 1.005 Urine Protein NEG Urine Glucose (UA) NEG Urine Ketones NEG Urine Blood NEG Urine Nitrite NEG Ur Leukocyte Esterase 1+ H Urine RBC 0-2 Urine WBC 1-4 Ur Squamous Epith Cells TRACE Urine Bacteria TRACE COVID-19 ([facility]) COVID-19 Clin Com ECG Attestation: I personally reviewed and interpreted this ECG as follows: Interpretation: EKG last night shows sinus rhythm, 62/Min, PACs, nonspecific changes; looks improved from prior study. Imaging Radiologist's impression: Impressions Chest X-Ray 02/05/21 16:23 IMPRESSION: Clear lungs with elevated right hemidiaphragm. Previously visualized bilateral lower lobe dependent infiltrate/atelectasis has improved Chest CTA 02/05/21 22:56 IMPRESSION: No evidence of pulmonary embolism. Cardiomegaly without evidence of decompensated heart failure. Cholelithiasis and gallbladder distention, similar in appearance to prior. If there is concern for cholecystitis, recommend right upper quadrant ultrasound. VTE: negative Abdomen Ultrasound 02/06/21 06:10 IMPRESSION: Cholelithiasis and borderline gallbladder wall thickening. While the sonographic Parker sign is positive, the patient is experiencing most mild pain within the right flank region. Assessment and Plan (1) S/P TAVR (transcatheter aortic valve replacement): Status: Acute (2) Precordial chest pain: Status: Acute (3) Atherosclerotic cardiovascular disease: Status: Acute Cardiac catheterization findings reviewed. She had mid RCA chronic total occlusion. Ostial circumflex chronic total occlusion. Mild LAD disease. Severe ramus stenosis status post bare metal stenting. Chest CTA shows no pulmonary embolism. Cholelithiasis and gallbladder distention but similar to prior. Mild elevation of high sensitivity troponins but lower than prior study. Low hemoglobin at 7.2. In December it was 9.3. Overall, her chest pain is very atypical for angina as it is localized, somewhat reproducible by palpation but clearly worse with lying down and the breathing. We will check an echocardiogram for assessing the TAVR valve and any other pathology like effusion. Not clear if gallbladder pathology is causing these symptoms. Will follow-up after review of the echocardiogram. Procedures Date of Service Date of Service: 02/06/21
--- NOTE | 2021-02-06 11:00 | PC.NURSE ---
Patient is resting quietly in bed with no complaints. Respirations are even and nonlabored
--- NOTE | 2021-02-06 12:01 | PC.NURSE ---
Report called to KATINA Ignacio in [facility]. Pt will be going to room 454
--- NOTE | 2021-02-06 12:36 | MHC.CM.PN ---
Addendum entered by Tatiana Martinez 02/06/21 12:37: Patient received 2nd Moderna on 10/22. Original Note: Met with patient in regards to discharge planning. Patient lives alone, uses walker/cane for mobility and had no services prior to coming to the ER. PCP verified. Patient has a HCP. Her daughter has a copy of it. She will try to obtain a copy. STARR explained and signed. Patient's daughter will transport her home when medically stable. Continue to monitor for d/c needs.
--- NOTE | 2021-02-06 15:20 | PHA.MEDREC ---
Pharmacy Consult ? Medication Reconciliation Pharmacy has completed the medication reconciliation.
--- NOTE | 2021-02-06 15:30 | P.PNIM_ITS ---
Subjective Subjective Date of Service: 02/06/21 Interval History: Patient complaining of pain right underneath right breast, with radiation to right shoulder radiating from right elbow to right shoulder and towards the neck, patient provides history of prior shoulder pain, denies nausea vomiting, no abdominal symptoms with food no fevers no chills, no diarrhea. 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 Physical Exam Vital Signs: Vital Signs: Last Vital Signs Temp 97.5 F 02/06/21 15:19 Pulse 74 02/06/21 15:19 Resp 16 02/06/21 15:19 BP 152/65 H 02/06/21 15:19 Pulse Ox 100 02/06/21 15:19 Body Mass Index 30.4 General resting comfortably no distress Lungs clear to auscultation bilaterally, no wheeze no rhonchi Heart regular rate rhythm with systolic murmur Abdomen soft nontender bowel sounds audible, no right upper quadrant tenderness, no Parker sign Extremities no edema Neuro nonfocal skin no rash Psych appropriate affect Right shoulder no redness no swelling, mild tenderness to palpation, good range of motion Objective Data Current Medications Generic Name Dose Route Start Last Admin Trade Name Freq PRN Reason Stop Dose Admin Acetaminophen 650 mg 02/06/21 02:37 Acetaminophen 325 Mg Tablet PO Q6H PRN Pain, Mild (Pain Scale 1-3) Albuterol Sulfate 2 puff 02/06/21 15:23 Albuterol Sulfate 90 Mcg 8 Gm Inhaler INHALE Q6H PRN Pain, Mild Amitriptyline HCl 10 mg 02/06/21 21:00 Amitriptyline Hcl 10 Mg Tablet PO BEDTIME [facility] Anastrozole 1 mg 02/07/21 09:00 Anastrozole 1 Mg Tablet PO DAILY ERICK Aspirin 81 mg 02/07/21 09:00 Aspirin Enteric Coated 81 Mg Tablet.Dr PO DAILY [facility] Docusate Sodium 100 mg 02/06/21 02:37 Docusate Sodium 100 Mg Capsule PO DAILY PRN Constipation Heparin Sodium (Porcine) 5,000 unit 02/06/21 03:00 02/06/21 03:23 Heparin Sodium,Porcine 5,000 Unit/Ml Vial SUBCUT 5,000 unit Q12H [facility] Administration Ceftriaxone Sodium 1 gm/ 50 mls @ 100 mls/hr 02/06/21 06:00 02/06/21 07:08 Sodium Chloride IV Infused Q24H [facility] Infusion Metoprolol Tartrate 25 mg 02/06/21 21:00 Metoprolol Tartrate 25 Mg Tablet PO BID [facility] Protocol Non-Formulary Medication 30 mg 02/06/21 15:30 Nifedipine PO DAILY [facility] Omeprazole 20 mg 02/07/21 06:30 Omeprazole 20 Mg Capsule. PO DAILY@0630 [facility] Ondansetron HCl 4 mg 02/06/21 02:37 Ondansetron Hcl 4 Mg/2 Ml Vial IVPUSH Q8H PRN Nausea and Vomiting Oxycodone HCl 5 mg 02/06/21 02:37 Oxycodone Hcl Immed Release 5 Mg Tablet PO Q6H PRN Pain, Severe (Pain Scale 7-10) Sodium Chloride 3 ml 02/06/21 02:37 02/06/21 13:59 0.9 % Sodium Chloride Flush 3 Ml Syringe IVFLUSH 3 ml QSHIFT [facility] Administration Labs CBC & Chem 7: 02/06/21 06:42 02/06/21 06:42 Labs: Laboratory Results - last 24 hr 02/05/21 02/05/21 02/05/21 20:25 20:25 20:25 WBC 6.8 RBC 2.57 L Hgb 8.0 L Hct 24.1 L MCV 93.8 MCH 31.1 MCHC 33.2 RDW 15.0 Plt Count 130 L D MPV 9.9 Immature Gran % (Auto) 0.3 Neut % (Auto) 52.8 Lymph % (Auto) 30.1 [place] % (Auto) 10.1 Eos % (Auto) 6.0 H Baso % (Auto) 0.7 Lymph # (Auto) 2.1 [place] # (Auto) 0.7 Eos # (Auto) 0.4 Baso # (Auto) 0.1 Abs Immat Gran (auto) 0.02 Absolute Neuts (auto) 3.6 Absolute Nucleated RBC 0.000 Nucleated RBC % (auto) 0.0 PT 12.4 INR 1.0 APTT 33.3 D-Dimer 727 Hold Blue Top SEE NOTE Sodium 140 Potassium 4.0 Chloride 110 H Carbon Dioxide 22 Anion Gap 12 BUN 23 H Creatinine 1.10 Estim Creat Clear Calc 40.5 Estimated GFR 47 Random Glucose 125 H Calcium 8.5 Total Bilirubin 0.5 Direct Bilirubin 0.2 AST 46 H D ALT 28 Alkaline Phosphatase 81 D Troponin I High Sens Total Protein 6.2 L Albumin 3.7 Lipase 21 Urine Color Urine Appearance Urine pH Ur Specific [place] Urine Protein Urine Glucose (UA) Urine Ketones Urine Blood Urine Nitrite Ur Leukocyte Esterase Urine RBC Urine WBC Ur Squamous Epith Cells Urine Bacteria COVID-19 ([facility]) COVID-19 Clin Com 02/05/21 02/05/21 02/05/21 20:25 23:28 23:28 WBC RBC Hgb Hct MCV MCH MCHC RDW Plt Count MPV Immature Gran % (Auto) Neut % (Auto) Lymph % (Auto) [place] % (Auto) Eos % (Auto) Baso % (Auto) Lymph # (Auto) [place] # (Auto) Eos # (Auto) Baso # (Auto) Abs Immat Gran (auto) Absolute Neuts (auto) Absolute Nucleated RBC Nucleated RBC % (auto) PT INR APTT D-Dimer Hold Blue Top Sodium Potassium Chloride Carbon Dioxide Anion Gap BUN Creatinine Estim Creat Clear Calc Estimated GFR Random Glucose Calcium Total Bilirubin Direct Bilirubin AST ALT Alkaline Phosphatase Troponin I High Sens 54.5 H* 58.2 H* Total Protein Albumin Lipase Urine Color Urine Appearance Urine pH Ur Specific [place] Urine Protein Urine Glucose (UA) Urine Ketones Urine Blood Urine Nitrite Ur Leukocyte Esterase Urine RBC Urine WBC Ur Squamous Epith Cells Urine Bacteria COVID-19 ([facility]) Negative COVID-19 [employer] [facility] Com See Note 02/06/21 02/06/21 02/06/21 00:08 06:42 06:42 WBC 7.5 RBC 2.36 L Hgb 7.2 L Hct 21.8 L MCV 92.4 MCH 30.5 MCHC 33.0 RDW 15.0 Plt Count 119 L MPV 10.1 Immature Gran % (Auto) 0.4 Neut % (Auto) 50.6 Lymph % (Auto) 33.0 [place] % (Auto) 8.9 Eos % (Auto) 6.4 H Baso % (Auto) 0.7 Lymph # (Auto) 2.5 [place] # (Auto) 0.7 Eos # (Auto) 0.5 H Baso # (Auto) 0.1 Abs Immat Gran (auto) 0.03 Absolute Neuts (auto) 3.8 Absolute Nucleated RBC 0.000 Nucleated RBC % (auto) 0.0 PT INR APTT D-Dimer Hold Blue Top Sodium 138 Potassium 4.3 Chloride 110 H Carbon Dioxide 22 Anion Gap 10 L BUN 20 H Creatinine 0.93 Estim Creat Clear Calc 47.9 Estimated GFR 57 Random Glucose 97 Calcium 8.1 L Total Bilirubin Direct Bilirubin AST ALT Alkaline Phosphatase Troponin I High Sens Total Protein Albumin Lipase Urine Color YELLOW Urine Appearance CLEAR Urine pH 6.0 Ur Specific [place] <= 1.005 Urine Protein NEG Urine Glucose (UA) NEG Urine Ketones NEG Urine Blood NEG Urine Nitrite NEG Ur Leukocyte Esterase 1+ H Urine RBC 0-2 Urine WBC 1-4 Ur Squamous Epith Cells TRACE Urine Bacteria TRACE COVID-19 ([facility]) COVID-19 Clin Com Quality Stroke Does the patient have a stroke diagnosis?: No VTE Prior VTE?: No VTE Risk Level:: Medical - moderate - high VTE Device Contraindication: N/A - Device Ordered VTE Drug Contraindication: N/A - Med Ordered Assessment and Plan (1) Chest pain: Status: Acute (2) Cholelithiasis: Status: Acute (3) S/P TAVR (transcatheter aortic valve replacement): Status: Acute (4) Atherosclerotic cardiovascular disease: Status: Acute Assessment and Plan: 85-year-old female presents to the hospital with right-sided chest pain that is radiating to the right shoulder and right arm status post Recent TAVR on 01/31/21. # right-sided chest pain Chest pain is atypical for acute coronary syndrome, localized underneath right breast with radiation towards right shoulder, troponin elevated but flat, EKG with no acute ischemic change Echocardiogram showed preserved EF, history of inferior basal akinesis , no change Abdominal ultrasound showed cholelithiasis and mild gallbladder wall thickness, LFTs unremarkable, less likely cholecystitis with no abdominal symptoms Likely musculoskeletal shoulder pain with artritisno evidence of dislocation or fx with good rom. Will hold Plavix, asa and statins with concern for cholecystitis in case patient requires surgical procedure and if lfts worsens. # hypertension will resume home medication nifedipine and metoprolol, since noted to have elevated BP # status post TAVR Seen by cardiology, echo showed bioprosthetic aortic valve appears to be functioning normally with trace valvular and paravalvular regurgitation # dvt prophylaxis with heparin
[2021-02-06] MEDS: NIFEdipine ER 30 MG TAB.ER.24 PO (15:54)
[2021-02-06] MEDS: Amitriptyline HCl 10 MG TABLET PO (21:31)
[2021-02-06] MEDS: Metoprolol Tartrate 25 MG TABLET PO (21:31)
[2021-02-07] MEDS: Heparin Sodium,Porcine 5,000 UNIT/ML VIAL 5000 UNIT SUBCUT (03:33)
[2021-02-07 04:00] VITALS: BP 140/71; PULSE 78; RESP 18; TEMP 36.8; O2SAT 97
[2021-02-07] MEDS: cefTRIAXone sodium 1 GM in 0.9 % Sodium Chloride 50 ML IV (05:28)
[2021-02-07] MEDS: Omeprazole 20 MG CAPSULE.DR PO (05:57)
--- NOTE | 2021-02-07 06:42 | PC.NURSE ---
Pt NPO after midnight for hepatobiliary scan. C/o rt shoulder, side and armpit pain. Received prn pain med with good effect. Slept well most of night. Monitor showed NSR, rate 70's. vital signs stable. Amb to BR with the use of walker and 1 standby assist. Gait is steady.
--- NOTE | 2021-02-07 08:35 | MHC.CM.PN ---
Addendum entered by Mariah Dave 02/07/21 15:45: PT WILL BE CLEARED TO DC HOME TODAY WITH [facility]. Original Note: CM received a message from pts daughter indicating they would like visiting nurse services at DC. Referral made to [facility]. Current DC plan is home with [facility]. Daughter will transport
[2021-02-07 09:55] VITALS: BP 143/67; PULSE 85; RESP 18; TEMP 36.6; O2SAT 100
[2021-02-07 09:57] VITALS: BP 143/67; PULSE 85
[2021-02-07] MEDS: Clopidogrel Bisulfate 75 MG TABLET PO (09:57)
[2021-02-07] MEDS: Aspirin Enteric Coated 81 MG TABLET.DR PO (09:57)
[2021-02-07] MEDS: NIFEdipine ER 30 MG TAB.ER.24 PO (09:57)
[2021-02-07 09:58] VITALS: BP 143/67; PULSE 85
[2021-02-07] MEDS: 0.9 % Sodium Chloride Flush 3 ML SYRINGE IVFLUSH (09:58)
[2021-02-07] MEDS: Metoprolol Tartrate 25 MG TABLET PO (09:58)
[2021-02-07] MEDS: Anastrozole 1 MG TABLET PO (09:58)
--- NOTE | 2021-02-07 11:06 | P.PNCA_ITS ---
Subjective Subjective Date of Service: 02/07/21 Interval history: States that she is feeling better. Review of Systems Review of Systems Yes all other systems are reviewed and are negative Cardiovascular: Reports as per HPI, Reports no additional cardiovascular complaints, Denies acrocyanosis, Denies cool extremities, Denies painful fingertips, Reports chest pain, Reports chest pain at rest, Denies diaphoresis, Denies syncope, Denies irregular heart rhythm, Denies claudication, Denies leg edema, Denies lightheadedness, Denies palpitations and Denies dyspnea Respiratory: Denies dyspnea Denies syncope Endocrine: Denies palpitations Physical Exam Vital Signs: Last Vital Signs Temp 97.8 F 02/07/21 09:55 Pulse 85 02/07/21 09:58 Resp 18 02/07/21 09:55 BP 143/67 H 02/07/21 09:58 Pulse Ox 100 02/07/21 09:55 Body Mass Index 30.4 Const General: cooperative, comfortable and no acute distress Orientation/consciousness: patient oriented x3 HENMT Other: Unremarkable Neck Neck: Yes normal visual inspection Chest Chest palpation & inspection: normal inspection of the chest Resp Auscultation: clear to auscultation bilaterally, no crackles and no wheezes Cardio Jugular venous distension: no JVD Palpation: normal PMI Heart sounds: S1 normal heart sound present, S2 normal heart sound present, no gallops, Murmur heart sound present systolic early, I/ and at the right sternal border and no rubs GI Palpation (GI): Soft to palpation Back/Spine/Pelvis Other: unremarkable Skin General skin exam: no rashes or lesions noted Neuro General: patient oriented x3 Extrem General: Yes no clubbing, cyanosis or edema Psych Mental Status: mental status grossly normal Results Labs and Meds Result diagrams: 02/06/21 06:42 02/06/21 06:42 Progress Note: A&P Assessment and plan (1) S/P TAVR (transcatheter aortic valve replacement): Status: Acute (2) Precordial chest pain: Status: Acute (3) Atherosclerotic cardiovascular disease: Status: Acute Assessment and Plan: Cardiac catheterization findings reviewed. She had mid RCA chronic total occlusion. Ostial circumflex chronic total occlusion. Mild LAD disease. S evere ramus stenosis status post bare metal stenting. Chest CTA shows no pulmonary embolism. Cholelithiasis and gallbladder distention but similar to prior. Mild elevation of high sensitivity troponins but lower than prior study. Low hemoglobin at 7.2. In December it was 9.3. LVEF, 60-65%; basal inferior and mid inferior akinesis similar to prior and normally functioning bioprosthetic aortic valve. Overall, her chest pain is very atypical for angina as it is localized in right lower infraaxillary area, somewhat reproducible by palpation but clearly worse with lying down and the breathing. Not clear if gallbladder pathology is causing these symptoms. No further cardiac testing at this time. Continue usual medications including dual antiplatelet therapy. Follow-up in our office upon discharge. Fall Risk Details Current Medications: Current Medications Generic Name Dose Route Start Last Admin Trade Name Freq PRN Reason Stop Dose Admin Acetaminophen 650 mg 02/06/21 02:37 Acetaminophen 325 Mg Tablet PO Q6H PRN Pain, Mild (Pain Scale 1-3) Albuterol Sulfate 2 puff 02/06/21 15:23 Albuterol Sulfate 90 Mcg 8 Gm Inhaler INHALE Q6H PRN Pain, Mild Amitriptyline HCl 10 mg 02/06/21 21:00 02/06/21 21:31 Amitriptyline Hcl 10 Mg Tablet PO 10 mg BEDTIME ERICK Administration Anastrozole 1 mg 02/07/21 09:00 02/07/21 09:58 Anastrozole 1 Mg Tablet PO 1 mg DAILY ERICK Administration Aspirin 81 mg 02/07/21 09:00 02/07/21 09:57 Aspirin Enteric Coated 81 Mg Tablet. PO 81 mg DAILY ERICK Administration Clopidogrel Bisulfate 75 mg 02/07/21 09:00 02/07/21 09:57 Clopidogrel Bisulfate 75 Mg Tablet PO 75 mg DAILY ERICK Administration Docusate Sodium 100 mg 02/06/21 02:37 Docusate Sodium 100 Mg Capsule PO DAILY PRN Constipation Heparin Sodium (Porcine) 5,000 unit 02/06/21 03:00 02/07/21 03:33 Heparin Sodium,Porcine 5,000 Unit/Ml Vial SUBCUT 5,000 unit Q12H ERICK Administration Ceftriaxone Sodium 1 gm/ 50 mls @ 100 mls/hr 02/06/21 06:00 02/07/21 06:11 Sodium Chloride IV Infused Q24H ERICK Infusion Metoprolol Tartrate 25 mg 02/06/21 21:00 02/07/21 09:58 Metoprolol Tartrate 25 Mg Tablet PO 25 mg BID ERICK Administration Protocol Nifedipine 30 mg 02/06/21 15:38 02/07/21 09:57 Nifedipine Er 30 Mg Tab.Er.24 PO 30 mg DAILY ERICK Administration Omeprazole 20 mg 02/07/21 06:30 02/07/21 05:57 Omeprazole 20 Mg Capsule.Dr PO 20 mg DAILY@0630 ERICK Administration Ondansetron HCl 4 mg 02/06/21 02:37 Ondansetron Hcl 4 Mg/2 Ml Vial IVPUSH Q8H PRN Nausea and Vomiting Oxycodone HCl 5 mg 02/06/21 02:37 Oxycodone Hcl Immed Release 5 Mg Tablet PO Q6H PRN Pain, Severe (Pain Scale 7-10) Sodium Chloride 3 ml 02/06/21 02:37 02/07/21 09:58 0.9 % Sodium Chloride Flush 3 Ml Syringe IVFLUSH 3 ml QSHIFT ERICK Administration Time Spent With Patient Time: Total time spent is greater than 50% in coordination of care (as documented) at patient's floor/unit and/or counseling patient: Time with patient: less than 15 minutes Progress Note: Quality Stroke Does the patient have a stroke diagnosis?: No Procedures Date of Service Date of Service: 02/07/21
[2021-02-07 11:16] VITALS: BP 109/58; PULSE 74; TEMP 36.6; O2SAT 99
[2021-02-07 15:04] VITALS: BP 117/56; PULSE 64; RESP 18; TEMP 36.6; O2SAT 100
--- NOTE | 2021-02-07 17:13 | PM.DS ---
DS: Providers Provider Date of Service: 02/07/21 Date of admission: 02/05/21 23:41 Primary care physician: Michael Shepard MD Consults: 02/06/21 02:37 Consult to Cardiology Routine Consulting Provider: Edu Louis Reason for consultation: chest pain w recent TAVR Has provider been notified: Yes DS: Diagnosis Discharge Diagnosis (1) S/P TAVR (transcatheter aortic valve replacement): Status: Acute (2) Precordial chest pain: Status: Acute (3) Atherosclerotic cardiovascular disease: Status: Acute DS: Medications Discharge Medications Home Medications: Home Medications Medication Instructions Recorded Confirmed anastrozole 1 mg tablet 1 mg PO DAILY 07/10/20 02/06/21 cholecalciferol (vitamin D3) 25 25 mcg PO DAILY 07/10/20 02/06/21 mcg (1,000 unit) capsule fluticasone propionate 220 1 puff INHALATION BID 07/10/20 02/06/21 mcg/actuation HFA aerosol inhaler omeprazole 20 mg capsule,delayed 20 mg PO DAILY@62907/10/20 02/06/21 release alendronate 70 mg PO MO@0630 11/22/20 02/06/21 albuterol sulfate 90 mcg/actuation 2 puff INHALATION Q6H PRN 12/17/20 02/06/21 aerosol inhaler lysine 1,000 mg tablet 1,000 mg PO DAILY 12/17/20 02/06/21 acetaminophen 500 mg tablet 500 mg PO Q6H PRN 12/31/20 02/06/21 calcium carbonate 600 mg calcium 600 mg PO DAILY@1700 12/31/20 02/06/21 (1,500 mg) tablet cod liver oil 1 cap PO DAILY 12/31/20 02/06/21 ferrous sulfate 325 mg (65 mg 325 mg PO DAILY 12/31/20 02/06/21 iron) tablet fexofenadine 180 mg tablet 180 mg PO BEDTIME 12/31/20 02/06/21 glucosam 750 mg-chondroi 100 1 tab PO BID tab 12/31/20 02/06/21 mg-hyalur 1.65 mg-CF borate 108 mg tablet pyridoxine (vitamin B6) 100 mg 100 mg PO DAILY tab 12/31/20 02/06/21 tablet vitamin B complex 1 tab PO DAILY 12/31/20 02/06/21 vitamin E succinate 400 unit tablet 400 unit PO DAILY 12/31/20 02/06/21 nifedipine 30 mg tablet,extended 30 mg PO DAILY 01/01/21 02/06/21 release Vitamin C With Vanessa Hips 1,000 mg PO Q12H 02/06/21 02/06/21 amitriptyline 10 mg PO BEDTIME 02/06/21 02/06/21 cyanocobalamin (vitamin B-12) 1,000 mcg PO DAILY 02/06/21 02/06/21 pyridoxine (vitamin B6) 100 mg PO DAILY 02/06/21 02/06/21 vit C-vit [id number] 2 cap PO DAILY 02/06/21 02/06/21 Previous Rx's Medication Instructions Recorded metoprolol tartrate 25 mg tablet 25 mg PO BID #180 tab 12/23/20 aspirin 81 mg tablet,delayed 81 mg PO DAILY #90 tab 01/07/21 release atorvastatin 80 mg tablet 80 mg PO DAILY #90 tab 01/07/21 clopidogrel 75 mg tablet 75 mg PO DAILY #90 tab 01/07/21 DS: Summary Hospital Course Hospital Course: Chief Complaint: Right-sided chest pain Past medical history of coronary artery disease, CHF, severe status post TAVR on 01/31, HTN, HLD, severe mitral valve regurg, osteoarthritis, osteoporosis, chronic anemia, who presents to the hospital with complaints of right-sided chest pain. Patient recently underwent TAVR, and immediately after felt this right-sided chest pain that is localized to below the right breast, radiating to the mid axillary region, to the right arm as well as to the right shoulder blade. Patient reports the pain to be a out of 10, worse with movement, laying down, coughing and taking deep breaths. Relieved slightly with Tylenol, feels cramping and also shooting. She denies any fever or chills, no abdominal pain, no palpitations, no shortness of breath, no nausea or vomiting, no diarrhea constipation, no urinary symptoms and no lower extremity edema. No numbness tingling or weakness. Because of Her recent TAVR as well as her history of coronary artery disease, cardiology wanted patient to come in for evaluation echocardiogram in the morning. On arrival to the ED patient's vital significant for temp of 98.6?, heart rate of 64, respiratory rate of 18, blood pressure of 113/58, satting 98% on room air Labs are significant for WBC count of 6.8, hemoglobin of 8 she is chronically anemic, PT of 12.4 INR of 1.0, troponin of 54.5, increased 58.2 with no delta. UA that is positive for leukocyte Estrace with slight WBC and no nitrites. Chest CT angiogram shows no evidence of pulmonary embolism. Cardiomegaly without evidence of decompensated heart failure. Cholelithiasis and gallbladder distension which is similar to prior. Hospital course 85-year-old female patient status post TAVR on January 31, history of hypertension, hyperlipidemia, chronic anemia presented to [facility] due to right-sided chest pain with radiation towards right shoulder and to the right side of the neck, patient was admitted to medical floor her troponin were elevated but flat she was evaluated by Cardiology and it was felt that chest pain is atypical for acute coronary syndrome and abdominal ultrasound revealed cholelithiasis with borderline gallbladder wall thickening, patient had normal LFTs no nausea vomiting it was felt that her symptoms are musculoskeletal with prior history of shoulder and neck pain, since her pain has significantly improved she is being discharged home with recommendation to have outpatient follow-up with General surgery Dr. Santa, in regard to her recent TAVR procedure she has been recommended to continue aspirin and Plavix and to have outpatient follow-up with Dr. Palacios patient was also noted to have low hematocrit of 21, as per patient she has chronic anemias for last 32 years has never received +transfusion and has been maintained on iron supplement common patient at present is asymptomatic with no lightheadedness dizziness near-syncope therefore she is being discharged home and has been recommended to have repeat CBC next week. Patient also noted to have drop in her platelet count So informed her to look for any bleeding and to return to hospital with any symptom of excessive bleeding, lightheadedness, dizziness,or syncope. Time Spent with Patient Time attestation: Total time spent providing and/or coordinating discharge services: Discharge coordination time: Greater than 30 minutes Quality: Stroke Does the patient have a stroke diagnosis?: No Physical Exam Vital Signs: Vital Signs: Last Vital Signs Temp 97.8 F 02/07/21 15:04 Pulse 64 02/07/21 15:04 Resp 18 02/07/21 15:04 BP 117/56 L 02/07/21 15:04 Pulse Ox 100 02/07/21 15:04 Body Mass Index 30.4 General resting comfortably no distress Lungs clear to auscultation bilaterally, no wheeze no rhonchi Heart regular rate rhythm with systolic murmur Abdomen soft nontender bowel sounds audible, no right upper quadrant tenderness, no Parker sign Extremities no edema Neuro nonfocal skin no rash Psych appropriate affect Right shoulder no redness, no swelling, mild tenderness to palpation, good range of motion. DS: Data Data Completed and Pending Completed studies during hospitalization [Text1]: Procedures Assistance with Respiratory Ventilation, Less than 24 Consecutive Hours, Continuous Positive Airway Pressure (11/22/20) Discharge Plan Discharge Patient Disposition: Home Health Service Referrals: Marco A WOODSON [Outside] - 1 Week Michael Shepard MD [Primary Care Provider] - 1 Week Discharge Medications: Continued metoprolol tartrate 25 mg tablet 25 mg PO BID Qty: 180 RF: 3 acetaminophen 500 mg tablet 500 mg PO Q6H PRN (Reason: Pain, Mild) RF: 0 calcium carbonate 600 mg calcium (1,500 mg) tablet 600 mg PO DAILY@1700 RF: 0 cod liver oil Capsule 1 cap PO DAILY RF: 0 fexofenadine 180 mg tablet 180 mg PO BEDTIME RF: 0 ferrous sulfate 325 mg (65 mg iron) tablet 325 mg PO DAILY RF: 0 [facility] 750 mg-100 mg- 1.65 mg-108 mg tablet 1 tab PO BID RF: 0 pyridoxine (vitamin B6) 100 mg tablet 100 mg PO DAILY RF: 0 vitamin B complex [B Complex-Vitamin B12] Tablet 1 tab PO DAILY RF: 0 vitamin E succinate 400 unit tablet 400 unit PO DAILY RF: 0 clopidogrel 75 mg tablet 75 mg PO DAILY Qty: 90 RF: 1 aspirin 81 mg tablet,delayed release (DR/EC) 81 mg PO DAILY Qty: 90 RF: 3 atorvastatin 80 mg tablet 80 mg PO DAILY Qty: 90 RF: 1 Vitamin C With Vanessa Hips 1,000 mg Tablet Extended Release 1,000 mg PO Q12H RF: 0 cyanocobalamin (vitamin B-12) 1,000 mcg Tablet 1,000 mcg PO DAILY RF: 0 pyridoxine (vitamin B6) 100 mg Tablet 100 mg PO DAILY RF: 0 vit C-vit Q-qvpdzc-cfhlvzyn Capsule 2 cap PO DAILY RF: 0 amitriptyline 10 mg tablet 10 mg PO BEDTIME RF: 0 alendronate 70 mg tablet 70 mg PO MO@0630 RF: 0 lysine 1,000 mg tablet 1,000 mg PO DAILY RF: 0 albuterol sulfate [ProAir HFA] 90 mcg/actuation HFA aerosol inhaler 2 puff inhalation Q6H PRN (Reason: Pain, Mild) RF: 0 nifedipine 30 mg tablet extended release 30 mg PO DAILY RF: 0 fluticasone propionate 220 mcg/actuation HFA aerosol inhaler 1 puff inhalation BID RF: 0 anastrozole 1 mg tablet 1 mg PO DAILY RF: 0 omeprazole 20 mg capsule,delayed release(DR/EC) 20 mg PO DAILY@0630 RF: 0 cholecalciferol (vitamin D3) 25 mcg (1,000 unit) capsule 25 mcg PO DAILY RF: 0 Discharge Orders: Discharge Order (Routine); Ordered 02/07/21 Ordered By: Chase Zamora Diet: low fat, low cholesterol Activity on Discharge: As tolerated Stand Alone Forms: Patient Portal Discharge page Care Plan Goals: For right shoulder pain/right chest pain, symptoms improved, workup revealed gallstones with no clear evidence of acute gallbladder disease, recommend outpatient follow-up with Dr. Santa in 3-4 weeks, pain likely musculoskeletal due to arthritis Have chronic anemia for last 32 years on iron supplements no history of active GI bleed patient asymptomatic has not received blood transfusion in the past Will recommend to follow CBC next week continue iron supplements and food rich in iron Low platelet count while on aspirin and Plavix cannot hold dual antiplatelet therapy due to recent TAVR procedure follow CBC in 1 week and outpatient follow-up with PCP and Dr. Palacios Health Concerns: As above Plan of Treatment: Outpatient follow-up with primary care physician in 1 week outpatient follow-up with Cardiology in 1-2 weeks Check CBC pain 1 week you are being discharged with VNA service Assessment: As above
== END 2021-02-07 17:47 | disposition home health service (06) ==
LOC: HO.ED 23:21 → HO.EDOVER 02-06 00:31 → HO.IMC 02-06 11:30
PROVIDERS: Emergency Medicine; Admitting Provider Internal Medicine; Emergency Provider Emergency Medicine; PCP Internal Medicine; Visit Provider Hospitalist
DX: R07.9 Chest pain, unspecified (principal); I35.0 Nonrheumatic aortic (valve) stenosis; R10.9 Unspecified abdominal pain; I25.10 Atherosclerotic heart disease of native coronary artery without angina pectoris; I10 Essential (primary) hypertension; D64.9 Anemia, unspecified; M81.0 Age-related osteoporosis without current pathological fracture; I51.7 Cardiomegaly; K80.20 Calculus of gallbladder without cholecystitis without obstruction; E78.5 Hyperlipidemia, unspecified; I49.1 Atrial premature depolarization; Z20.822 Contact with and (suspected) exposure to COVID-19; Z95.2 Presence of prosthetic heart valve; Z95.5 Presence of coronary angioplasty implant and graft; Z98.890 Other specified postprocedural states; Z88.6 Allergy status to analgesic agent; Z88.1 Allergy status to other antibiotic agents; Z88.0 Allergy status to penicillin; Z88.8 Allergy status to other drugs, medicaments and biological substances; Z88.5 Allergy status to narcotic agent; Z88.2 Allergy status to sulfonamides; Z79.899 Other long term (current) drug therapy
CPT/HCPCS: 36415; 71045; 71275; 76705; 78226; 80048; 80076; 81001; 81003; 83690; 84484; 85025; 85379; 85610; 85730; 87086; 87635; 93005; 93306; 96365; 99219; 99285; A9537; J0696; Q9967

== ENCOUNTER 2021-02-14 16:58 | Outpatient (REF) | payer BC, SELFPAY ==
[2021-02-14 17:06] LABS: Glucose Urine UA NEG (NEG); Leukocyte Esterase Urine TRACE (NEG); Nitrite Urine NEG (NEG); PH 5.5 (5.0-8.0); Specific Gravity - Urine 1.015 (1.005-1.025); UACC Culture Trigger YES; Urine Blood NEG (NEG); Urine Ketones NEG (NEG); Urine Protein NEG (NEG-TRACE)
[2021-02-14 17:08] LABS: Appearance Urine CLEAR; Color Urine YELLOW
[2021-02-14 17:37] LABS: Bacteria Urine TRACE /LPF; RBC Urine 0-2 /HPF (0); Squamous Epithelial Cell Urine 2+ /LPF
== END 2021-02-14 16:59 | disposition home or self-care (01) ==
LOC: HO.HVNA 16:58
PROVIDERS: Visit Provider Internal Medicine
DX: R30.0 Dysuria (principal)
CPT/HCPCS: 81001; 81003; 87086

== ENCOUNTER → 2021-03-11 13:47 | Outpatient (BNVA) | payer BC, SELFPAY | PROVIDERS: PCP Internal Medicine; Visit Provider Internal Medicine ==

== ENCOUNTER → 2021-03-13 12:21 | Outpatient (BNVA) | payer BC, SELFPAY | PROVIDERS: PCP Internal Medicine; Visit Provider Student in an Organized Health Care Education/Training Program ==

== ENCOUNTER → 2021-03-18 13:57 | Outpatient (BNVA) | payer BC, SELFPAY | PROVIDERS: PCP Internal Medicine; Visit Provider Nurse Practitioner Family ==

== ENCOUNTER 2021-03-23 | Outpatient (REF) | payer BC, SELFPAY ==
[2021-03-27 14:45] LABS: FIT1 NEGATIVE (NEGATIVE); FIT2 NEGATIVE (NEGATIVE)
[2021-03-27 14:46] LABS: FIT Int Ctl YES
== END 2021-03-23 00:01 | disposition home or self-care (01) ==
LOC: HO.LNP
PROVIDERS: Visit Provider Nurse Practitioner Family
DX: K59.00 Constipation, unspecified (principal); R19.5 Other fecal abnormalities
CPT/HCPCS: 82274

== ENCOUNTER 2021-04-24 13:09 | Outpatient (REF) | payer BC, SELFPAY ==
--- NOTE | ~2021-04-24 | MM_ITS ---
EXAMINATION: BONE DENSITOMETRY CLINICAL INDICATION: Age-related osteoporosis without current pathological fracture. COMPARISON: Previous BD dated 12/16/2018 and baseline BD dated 02/17/2012. Radiographs lumbar spine 02/28/2020, CTA chest 02/05/2021. TECHNIQUE: Using a [employer] DXA System (software version: 13.1) manufactured by [employer], dual-energy x-ray absorptiometry was performed of the lumbar spine and left hip. The images are of good technical quality. Summary results are attached. FINDINGS: AP SPINE L2-L4 (excluding L1): The data of L1-L4 has been changed to exclude the L1 vertebral body, because augmentation changes at this level may cause overestimation of lumbar spine density. Current: BMD 1.189 g/cm2, Z-score 1.2, T-score -0.1, normal, 16.5% increase from previous, 10.5% increase from baseline (<5% change is not significant). Prior: BMD 1.021 g/cm2. Baseline: BMD 1.076 g/cm2. LEFT FEMUR, NECK: Current: BMD 0.742 g/cm2, Z-score -0.2, T-score -2.1, osteopenia. Prior: BMD 0.753 g/cm2. Baseline: BMD 0.823 g/cm2. LEFT FEMUR, TOTAL: Current: BMD 0.857 g/cm2, Z-score 0.6, T-score -1.2, osteopenia, 1.4% increase from previous, 2.2% decrease from baseline (<5% change is not significant). Prior: BMD 0.845 g/cm2. Baseline: BMD 0.876 g/cm2. IDENTIFIED RISK FACTORS: Osteoporosis, height loss. Menopause. HISTORY OF FRACTURE: L1 (status post vertebral augmentation). MEDICATIONS: Calcium supplements or multivitamin, vitamin D, bisphosphonate. MM/XR DEXA axial skeleton IMPRESSION: 1. DIAGNOSIS: Osteopenia based on the lowest T-score value of -2.1 in the femoral neck applying World Health Organization criteria. 2. 10-YEAR FRACTURE RISK PREDICTION, FRAX: Major osteoporotic fracture (clinical spine, forearm, hip or shoulder) 15.8%. Hip fracture 4.9%. 3. Treatment Recommendations: NOF guidelines recommend consideration for treatment in postmenopausal women and men age 50 and older presenting with the following: -A hip or vertebral (clinical or morphometric) fracture. -T-score less than or equal to -2.5 at the femoral neck or spine after appropriate evaluation to exclude secondary causes. -Low bone mass at the hip or spine and a 10-year fracture probability by FRAX of greater than or equal to 3% for hip fracture or greater than or equal to 20% for major osteoporotic fracture based on the [place] adapted WHO algorithm. 4. Other Recommendations: All treatment decisions require clinical judgment and consideration of individual patient factors, including patient preferences, comorbidities, previous drug use, risk factors not captured in the FRAX model (e.g. frailty, falls, vitamin D deficiency, increased bone turnover, interval significant decline in bone density) and possible under or overestimation of fracture risk by FRAX. Additional medical evaluation for secondary cause of low bone mineral density may be appropriate. FUTURE SCAN RECOMMENDATION: People with diagnosed cases of osteoporosis or at high risk for fracture should have regular bone mineral density tests. For patients eligible for Medicare, routine testing is allowed once every 2 years. The testing frequency can be increased to one year for patients who have rapidly progressing disease, those who are receiving or discontinuing medical therapy to restore bone mass, or have additional risk factors.
== END 2021-04-24 13:10 | disposition home or self-care (01) ==
LOC: HO.MAMMO 13:09
PROVIDERS: PCP Internal Medicine; Visit Provider Internal Medicine
DX: M81.0 Age-related osteoporosis without current pathological fracture (principal)
CPT/HCPCS: 77080

== ENCOUNTER → 2021-05-20 12:37 | Outpatient (BNVA) | payer BC, SELFPAY | PROVIDERS: Visit Provider Nurse Practitioner Family ==

== ENCOUNTER → 2021-07-09 13:38 | Outpatient (BNVA) | payer BC, SELFPAY | PROVIDERS: PCP Internal Medicine; Visit Provider Internal Medicine ==

== ENCOUNTER 2021-07-11 14:52 | Outpatient (REF) | payer BC, SELFPAY ==
[2021-07-11 15:23] LABS: Hematocrit 25.2 % (37.0-47.0); Hemoglobin 8.1 g/dl (12.0-16.0); Mean Corpuscular HGB Conc 32.1 g/dl (31.0-35.0); Mean Corpuscular Hemoglobin 29.9 pg (27.0-33.0); Mean Platelet Volume 12.2 fL (9.4-12.3); Platelet Count 250 X10*3/uL (160-400); Red Blood Count 2.71 X10*6/uL (4.20-5.50); Red Cell Distribution Width 17.1 % (11.0-16.0); White Blood Count 6.2 X10*3/uL (4.8-10.8)
== END 2021-07-11 14:53 | disposition home or self-care (01) ==
LOC: HO.LAB 14:52
PROVIDERS: PCP Internal Medicine; Referring Provider Internal Medicine Cardiovascular Disease; Visit Provider Nurse Practitioner Family
DX: D64.9 Anemia, unspecified (principal)
CPT/HCPCS: 36415; 85027

== ENCOUNTER → 2021-07-15 14:43 | Outpatient (BNVA) | payer BC, SELFPAY | PROVIDERS: PCP Internal Medicine; Referring Provider Internal Medicine; Visit Provider Internal Medicine Cardiovascular Disease | DX: I25.10 Atherosclerotic heart disease of native coronary artery without angina pectoris (principal); I10 Essential (primary) hypertension; Z95.2 Presence of prosthetic heart valve | CPT/HCPCS: 93005 ==

== ENCOUNTER → 2021-09-12 13:01 | Outpatient (BNVA) | payer BC, SELFPAY | PROVIDERS: PCP Internal Medicine; Visit Provider Nurse Practitioner Family ==

== ENCOUNTER 2021-09-16 14:52 | Outpatient (REF) | payer BC, SELFPAY ==
--- NOTE | ~2021-09-16 | XR_ITS ---
EXAMINATION: XR SHOULDER, RIGHT CLINICAL INFORMATION: Pain COMPARISON: Previous x-ray July 2016 TECHNIQUE: 3 views of of the right shoulder. FINDINGS: Bone alignment is normal. No fracture or dislocation is seen. There is arthritis at the glenohumeral and acromioclavicular joints with joint space narrowing and osteophyte formation. There are degenerative changes of the greater tuberosity. Soft tissues are unremarkable. XR/XR shoulder RT min 2V IMPRESSION: Arthritis at the glenohumeral and acromioclavicular joints.
[2021-09-16 15:37] LABS: Alanine Aminotransferase 34 U/L (0-31); Albumin Level 3.9 g/dL (3.5-5.0); Alkaline Phosphatase 75 U/L (39-117); Anion Gap 12 (12-20); Aspartate Amino Transferase 50 U/L (5-31); Bilirubin Total 0.6 mg/dL (0.0-1.0); Blood Urea Nitrogen 27 mg/dL (9-16); Carbon Dioxide 24 mmol/L (22-29); Chloride 108 mmol/L (96-108); Estimated Glomerular Filt Rate 45; Glucose Random 100 mg/dL (60-115); Potassium 4.4 mmol/L (3.3-5.1); Sodium 140 mmol/L (135-145); Total Protein 6.9 g/dL (6.5-8.0)
[2021-09-16 15:57] LABS: Vitamin D 25-OH Total 39.6 ng/mL (>30)
== END 2021-09-16 14:53 | disposition home or self-care (01) ==
LOC: HO.XRAY 14:52
PROVIDERS: PCP Internal Medicine; Visit Provider Nurse Practitioner Family
DX: M81.0 Age-related osteoporosis without current pathological fracture (principal); M25.511 Pain in right shoulder
CPT/HCPCS: 36415; 73030; 80053; 82306

== ENCOUNTER → 2021-09-26 13:43 | Outpatient (BNVA) | payer BC, SELFPAY | PROVIDERS: PCP Internal Medicine; Visit Provider Orthopaedic Surgery | DX: M75.51 Bursitis of right shoulder (principal); M19.011 Primary osteoarthritis, right shoulder | CPT/HCPCS: 20610; J1100 ==

== ENCOUNTER → 2021-11-05 13:54 | Outpatient (BNVA) | payer BC, SELFPAY | PROVIDERS: PCP Internal Medicine; Visit Provider Internal Medicine | DX: J44.9 Chronic obstructive pulmonary disease, unspecified (principal); J30.9 Allergic rhinitis, unspecified; Z79.899 Other long term (current) drug therapy | CPT/HCPCS: 99212 ==

== ENCOUNTER 2021-12-04 14:00 | Outpatient (RCR) | payer BC, SELFPAY ==
--- NOTE | 2021-10-22 15:02 | MHC.PT.EP ---
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 pt is a good candidate for skilled PT due to age, potential remediation of impairments, typical disease/condition progression and prognosis, comorbidities, and motivation. pt would benefit from tailored strengthening and stretching exercise program, functional training, gait training, postural re-training, neuromuscular re-education, modalities as needed for pain, equipment safety demonstration. Frequency and Duration: The patient will be seen 2x/wk for 6 wks Short Term Goals: pt will be I w/ HEP to promote self-management of condition. pt will improve shoulder flexion AROM by 10 degrees to promote ease in reaching for cooking utensils for meal prep. Fdc Goals: pt will improve functional ER AROM to at least C5 to improve tolerance for upper body ADLs including washing/combing her hair. pt will report a statistically significant improvement in her self-reported outcome measure, SPADI, to promote return to PLOF. Treatment Plan: Modalities to reduce pain, spasms and effusion. Manual therapy to restore motion and function. Therapeutic exercise to improve strength and flexibility. Neuromuscular re-education for posture and balance. Therapeutic activities to return to functional activities of daily living. Electronically signed by: Chyna Vieira PT, DPT Please sign and return to therapist. Thank you for your referral.
--- NOTE | 2022-01-09 15:08 | MHC.PT.DC ---
[facility] [place] Office [place] Office [place] Office [address] Brad Falk [address] [phone] F: [phone] F: [phone] F: [phone] F: [phone] Physical Therapy Discharge Report Diagnosis: M75.51 bursitis of right shoulder M19.011 primary osteoarthritis, right shoulder Date of Surgery: N/A Date of Evaluation: 10/22/21 Date of Discharge: 01/09/22 Treatments to Date: 10 Cancellations to Date: 3 No Shows to Date: 0 Discharge Status: Recommend MD Follow-up Discharge Summary: The patient overall is reporting no difference in her pain intensity, frequency, or ability to tolerate activities of daily living. She is independent her HEP which was reviewed today. She will be placed on hold until her follow-up with orthopedics on 12/30. At that time if she wishes to return we will resume PT. If we do not hear back from her within 4 weeks she will be D/C'd at that time. Electronically signed by: Chyna Vieira PT, DPT Please sign and return to therapist. Thank you for your referral.
== END 2022-01-09 15:09 | disposition home or self-care (01) ==
LOC: HO.PT 14:00
PROVIDERS: PCP Internal Medicine; Visit Provider Orthopaedic Surgery
DX: M75.51 Bursitis of right shoulder (principal); M19.011 Primary osteoarthritis, right shoulder
CPT/HCPCS: 97110; 97162

== ENCOUNTER → 2021-12-16 13:29 | Outpatient (BNVA) | payer BC, SELFPAY | PROVIDERS: PCP Internal Medicine; Visit Provider Nurse Practitioner Family | DX: Z13.89 Encounter for screening for other disorder (principal) ==

== ENCOUNTER 2021-12-18 14:39 | Outpatient (REF) | payer BC, SELFPAY ==
[2021-12-24 15:01] LABS: FIT Int Ctl YES; FIT1 NEGATIVE (NEGATIVE); FIT2 NEGATIVE (NEGATIVE)
== END 2021-12-18 14:40 | disposition home or self-care (01) ==
LOC: HO.LNP 14:39
PROVIDERS: Visit Provider Nurse Practitioner Family
DX: D64.9 Anemia, unspecified (principal)
CPT/HCPCS: 82274

== ENCOUNTER → 2021-12-30 13:08 | Outpatient (BNVA) | payer BC, SELFPAY | PROVIDERS: PCP Internal Medicine; Visit Provider Orthopaedic Surgery | DX: M19.011 Primary osteoarthritis, right shoulder (principal) | CPT/HCPCS: 20610; J1100 ==

== ENCOUNTER → 2021-12-31 13:00 | Outpatient (BNVA) | payer BC, SELFPAY | PROVIDERS: PCP Internal Medicine; Referring Provider Internal Medicine; Visit Provider Nurse Practitioner Family | DX: I25.10 Atherosclerotic heart disease of native coronary artery without angina pectoris (principal) ==

== ENCOUNTER 2022-01-01 14:27 | Outpatient (REF) | payer BC, SELFPAY ==
[2022-01-01 14:48] LABS: MANUAL DIFF FLAG NO
[2022-01-01 15:26] LABS: Basophils Absolute Auto 0.1 X10*3/uL (0.0-0.2); Basophils Percent Auto 1.1 % (0-2); Eosinophils Absolute Auto 0.2 X10*3/uL (0.0-0.4); Eosinophils Percent Auto 2.4 % (0-4); Hematocrit 32.8 % (37.0-47.0); Hemoglobin 10.6 g/dl (12.0-16.0); Imm Gran Abs Auto 0.02 X10*3/uL (0.00-0.03); Imm Gran Pct Auto 0.3 % (0.0-0.4); Lymphocytes Absolute Auto 2.9 X10*3/uL (1.2-4.9); Lymphocytes Percent Auto 46.4 % (20-40); Mean Corpuscular HGB Conc 32.3 g/dl (31.0-35.0); Mean Corpuscular Hemoglobin 29.9 pg (27.0-33.0); Mean Corpuscular Volume 92.7 fL (80.0-98.0); Mean Platelet Volume 10.2 fL (9.4-12.3); Monocytes Absolute Auto 0.4 X10*3/uL (0.1-1.2); Monocytes Percent Auto 6.9 % (2-11); Neutrophils Absolute Auto 2.7 x10*3/uL (2.0-8.3); Neutrophils Percent Auto 42.9 % (45-73); Platelet Count 221 X10*3/uL (160-400); Red Blood Count 3.54 X10*6/uL (4.20-5.50); Red Cell Distribution Width 16.8 % (11.0-16.0); White Blood Count 6.3 X10*3/uL (4.8-10.8)
[2022-01-01 15:46] LABS: Alanine Aminotransferase 40 U/L (0-31); Albumin Level 3.9 g/dL (3.5-5.0); Alkaline Phosphatase 74 U/L (39-117); Anion Gap 12 (12-20); Aspartate Amino Transferase 51 U/L (5-31); Bilirubin Total 0.6 mg/dL (0.0-1.0); Blood Urea Nitrogen 27 mg/dL (9-16); Calcium 9.3 mg/dL (8.4-10.2); Carbon Dioxide 26 mmol/L (22-29); Chloride 106 mmol/L (96-108); Cholesterol 159 mg/dL; Estimated Glomerular Filt Rate 49; Glucose Fasting 98 mg/dL (60-99); HDL Cholesterol 51 mg/dL; LDL Cholesterol Calculated 83 mg/dl; Potassium 4.6 mmol/L (3.3-5.1); Sodium 139 mmol/L (135-145); Total Protein 6.9 g/dL (6.5-8.0); Triglycerides 127 mg/dL
== END 2022-01-01 14:28 | disposition home or self-care (01) ==
LOC: HO.LAB 14:27
PROVIDERS: PCP Internal Medicine; Visit Provider Nurse Practitioner Family
DX: I35.0 Nonrheumatic aortic (valve) stenosis (principal); I25.10 Atherosclerotic heart disease of native coronary artery without angina pectoris
CPT/HCPCS: 36415; 80053; 80061; 85025

== ENCOUNTER 2022-02-06 19:25 | Emergency (ER) | payer BC, SELFPAY ==
--- NOTE | ~2022-02-06 | US_ITS ---
EXAMINATION: US ABDOMEN LIMITED, gallbladder only CLINICAL INFORMATION: Abdominal and back pain. Abnormal findings of gallbladder on CT abdomen pelvis 02/06/2022.. COMPARISON: CT scan abdomen pelvis 02/06/2022 TECHNIQUE: Real-time imaging of the gallbladder only. FINDINGS: GALLBLADDER: Gallbladder is distended. There are multiple small stones layering dependently in the fundus of the gallbladder. No gallbladder wall thickening or pericholecystic fluid. Positive ultrasound Parker's sign. COMMON BILE DUCT: Normal in caliber measuring 0.4 cm in diameter. US/US abdomen limited IMPRESSION: Cholelithiasis. No acute change of gallbladder wall. Positive ultrasound Parker's sign.
--- NOTE | ~2022-02-06 | CT_ITS ---
EXAMINATION: CT ABDOMEN AND PELVIS WITHOUT CONTRAST CLINICAL INFORMATION: Abdominal and back pain. COMPARISON: Ultrasound abdomen 02/06/2021 TECHNIQUE: Multidetector volumetric imaging was performed from the superior aspect of the liver through the pubic symphysis. Sagittal and coronal reformatted images were obtained on the technologist's workstation. This CT examination was performed using dose optimization techniques as appropriate, variously including the following: *Automated exposure control *Adjustment of mA and/or kV according to patient size (this includes techniques or standardized protocols for targeted exams where dose is matched to indication/reason for exam; i.e. extremities or head) *Use of iterative reconstruction technique DLP: 773 mGy-cm FINDINGS: LUNG BASES: There is bibasilar scarring. The heart size is normal. There is aortic valve stent in place and minimal coronary artery calcifications. Moderate. Moderate elevation of right hemidiaphragm is noted. LIVER, GALLBLADDER, AND BILIARY TREE: The liver is normal in size, shape, and attenuation. No focal hepatic lesion or biliary ductal dilatation is present. The gallbladder is distended with radiopaque dependent gallstones. No wall thickening. PANCREAS: Unremarkable. SPLEEN: Unremarkable. ADRENAL GLANDS: Unremarkable. KIDNEYS AND URETERS: The kidneys are normal in size, shape, and attenuation. No hydronephrosis, hydroureter, or calculi seen. There is mild bilateral perinephric stranding. BLADDER: Unremarkable. GASTROINTESTINAL TRACT: There is scattered stool and gas seen throughout the colon without significant distention. The small bowel loops are normal caliber. The stomach is distended with recently ingested food. Appendix is not visualized. No inflammatory process, free air or free fluid. ABDOMINAL WALL: No significant hernia is appreciated. LYMPH NODES: Normal. VASCULAR: Unremarkable. PELVIC VISCERA: The uterus is anteverted with calcified uterine fibroid. No adnexal mass, abnormal pelvic, inguinal lymph nodes or free fluid. OSSEOUS STRUCTURES: Degenerative disc changes with vacuum disc phenomena and spondylosis at every lumbar disc level. There is cement augmentation L1 vertebra for an old healed fracture. No aggressive lytic or sclerotic process seen. There is moderate ventral spondylosis. There are 2 screws traversing the left SI joint for fusion CT/CT abdomen pelvis wo con IMPRESSION: Distended gallbladder with cholelithiasis and no wall thickening. Mild constipation without obstruction. Calcified uterine fibroid. Fused left SI joint with 2 screws. There are degenerative disc changes with spondylosis at every lumbar disc level. Fleischner guidelines were followed.
[2022-02-06 20:10] VITALS: BP 133/43; PULSE 64; RESP 18; TEMP 36.7; O2SAT 98; BMI 28.2
[2022-02-06 20:25] LABS: MANUAL DIFF FLAG NO
[2022-02-06 20:26] LABS: Basophils Percent Auto 0.6 % (0-2); Eosinophils Absolute Auto 0.2 X10*3/uL (0.0-0.4); Eosinophils Percent Auto 2.4 % (0-4); Hematocrit 27.6 % (37.0-47.0); Imm Gran Abs Auto 0.01 X10*3/uL (0.00-0.03); Imm Gran Pct Auto 0.1 % (0.0-0.4); Lymphocytes Absolute Auto 2.1 X10*3/uL (1.2-4.9); Lymphocytes Percent Auto 29.6 % (20-40); Mean Corpuscular HGB Conc 32.6 g/dl (31.0-35.0); Mean Corpuscular Hemoglobin 29.8 pg (27.0-33.0); Mean Corpuscular Volume 91.4 fL (80.0-98.0); Mean Platelet Volume 9.1 fL (9.4-12.3); Monocytes Absolute Auto 0.5 X10*3/uL (0.1-1.2); Monocytes Percent Auto 7.5 % (2-11); Neutrophils Absolute Auto 4.3 x10*3/uL (2.0-8.3); Neutrophils Percent Auto 59.8 % (45-73); Platelet Count 182 X10*3/uL (160-400); Red Blood Count 3.02 X10*6/uL (4.20-5.50); Red Cell Distribution Width 16.4 % (11.0-16.0); White Blood Count 7.1 X10*3/uL (4.8-10.8)
--- NOTE | 2022-02-06 20:41 | PC.NURSE ---
this RN charted VS on wrong pt.
[2022-02-06 20:55] LABS: Alanine Aminotransferase 36 U/L (0-31); Albumin Level 3.8 g/dL (3.5-5.0); Alkaline Phosphatase 63 U/L (39-117); Anion Gap 12 (12-20); Aspartate Amino Transferase 47 U/L (5-31); Bilirubin Total 0.5 mg/dL (0.0-1.0); Blood Urea Nitrogen 22 mg/dL (9-16); Calcium 8.5 mg/dL (8.4-10.2); Carbon Dioxide 24 mmol/L (22-29); Chloride 101 mmol/L (96-108); Creatinine Clr Calc Pharmacy 39.4; Estimated Glomerular Filt Rate 47; Glucose Random 153 mg/dL (60-115); Potassium 4.5 mmol/L (3.3-5.1); Sodium 132 mmol/L (135-145); Total Protein 6.5 g/dL (6.5-8.0)
[2022-02-06 21:01] VITALS: BP 134/41; PULSE 63; RESP 18; TEMP 36.9; O2SAT 97
[2022-02-06 21:21] LABS: Lipase 28 U/L (8-78)
--- NOTE | 2022-02-06 21:49 | ED.ABDPAIN ---
HPI - Abdominal Pain General Chief Complaint: Abdominal Pain Stated Complaint: abd pain Time Seen by Provider: 02/06/22 20:43 Source: patient and family Mode of arrival: ambulatory Limitations: no limitations History of Present Illness HPI narrative: 86-year-old female with past medical history of TAVR, hypertension, coronary artery disease, osteoarthritis, asthma, CKD, anemia here with complaints of several days of lower abdominal discomfort with radiation to the back. Patient tells me that initially her pain seen lower but now it is migrating up to the umbilicus. She has had some urinary frequency. She denies any nausea, vomiting, diarrhea, constipation, fevers, chills. 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 She did take 1 dose on February 02 but has not taken any since. She had an outpatient urinalysis done 2 days ago which has a culture that showing greater than 100,000 group B strep (family has this with them). Patient reports today generalized malaise and not feeling well which prompted her ER visit. Related Data Home Medications Medication Instructions Recorded Confirmed omeprazole 20 mg capsule,delayed 20 mg PO DAILY@0630 07/10/20 01/01/22 release lysine 1,000 mg tablet 1,000 mg PO DAILY 12/17/20 01/01/22 calcium carbonate 600 mg calcium 600 mg PO DAILY@1700 12/31/20 01/01/22 (1,500 mg) tablet cod liver oil 1 cap PO DAILY 12/31/20 01/01/22 ferrous sulfate 325 mg (65 mg 325 mg PO DAILY 12/31/20 01/01/22 iron) tablet fexofenadine 180 mg tablet 180 mg PO BEDTIME 12/31/20 01/01/22 vitamin B complex (B 1 tab PO DAILY 12/31/20 01/01/22 Complex-Vitamin B12) vitamin E succinate 268 mg (400 400 unit PO DAILY 12/31/20 01/01/22 unit) tablet ascorbic acid (vitamin C) 1,000 mg 1,000 mg PO Q12H 02/06/21 01/01/22 tablet,extended release (Vitamin C With Vanessa Hips) cyanocobalamin (vitamin B-12) 1,000 mcg PO DAILY 02/06/21 01/01/22 1,000 mcg tablet pyridoxine (vitamin B6) 100 mg 100 mg PO DAILY 02/06/21 01/01/22 tablet vit C-vit P-vxuasl-giltvyof capsule 2 cap PO DAILY 02/06/21 01/01/22 acetaminophen 500 mg tablet 1,000 mg PO .twice a day Pain, Mild 03/13/21 01/01/22 cholecalciferol (vitamin D3) 25 25 mcg PO DAILY 11/05/21 01/01/22 mcg (1,000 unit) capsule ciprofloxacin 250 mg/5 mL oral 250 mg PO BID 12/30/21 01/01/22 suspension epoetin kamilah-epbx 40,000 unit/mL See Rx Instructions .Route .COMPLEX 12/31/21 01/01/22 injection solution (Retacrit) Previous Rx's Medication Instructions Recorded alendronate 70 mg tablet 70 mg PO QWEEK #12 tabs 06/20/21 blood pressure monitor #1 ea 07/15/21 amitriptyline 10 mg tablet 10 mg PO BEDTIME #90 tabs 09/15/21 albuterol sulfate 90 mcg/actuation 2 puff inhalation Q6H PRN 11/05/21 aerosol inhaler (ProAir HFA) bronchospasm 30 days #8.5 grams fluticasone propionate 220 2 puff inhalation BID #12 grams 11/07/21 mcg/actuation HFA aerosol inhaler nifedipine 30 mg tablet,extended 30 mg PO DAILY #90 tabs 12/03/21 release metoprolol tartrate 25 mg tablet 25 mg PO BID #180 tabs 12/09/21 clopidogrel 75 mg tablet 75 mg PO DAILY #90 tabs 12/24/21 aspirin 81 mg tablet,delayed 81 mg PO DAILY #90 tabs 12/30/21 release atorvastatin 80 mg tablet 80 mg PO DAILY 90 days #90 tabs 01/17/22 Allergies Allergy/AdvReac Type Severity Reaction Status Date / Time amoxicillin [AMOXICILLIN] Allergy Intermediate RASH Verified 02/06/22 20:10 cephalexin Allergy Intermediate Nausea Verified 02/06/22 20:10 Erythromycin Allergy Intermediate Nausea and Verified 02/06/22 20:10 Vomiting meloxicam Allergy Intermediate Nausea and Verified 02/06/22 20:10 Vomiting meperidine [Demerol] Allergy Intermediate Nausea and Verified 02/06/22 20:10 Vomiting nitrofurantoin Allergy Intermediate Rash Verified 02/06/22 20:10 [From MACROBID] Penicillins Allergy Intermediate Rash Verified 02/06/22 20:10 Sulfa (Sulfonamide Allergy Intermediate RASH Verified 02/06/22 20:10 Antibiotics) [SULFA(SULFONAMIDE ANTIBIOTICS)] tramadol Allergy Intermediate Nausea and Verified 02/06/22 20:10 Vomiting codeine [CODEINE] AdvReac Intermediate NAUSEA Verified 02/06/22 20:10 Review of Systems Review of Systems Yes all other systems are reviewed and are negative Constitutional: Reports no additional constitutional complaints, Denies body ache(s), Denies chills, Denies fever(s), Denies headache(s) and Denies weakness Eyes: Reports no additional eye complaints and Denies change in vision Reports system reviewed and no additional complaints, except as documented, Denies dizziness, Denies headache(s), Denies nasal congestion, Denies nasal discharge and Denies neck pain Cardiovascular: Reports no additional cardiovascular complaints, Denies chest pain, Denies leg edema and Denies dyspnea Respiratory: Reports no additional respiratory complaints, Denies cough and Denies dyspnea Gastrointestinal: Reports no additional gastrointestinal complaints, Reports abdominal pain, Denies diarrhea, Denies nausea and Denies vomiting Genitourinary: Reports no additional female genitourinary complaints and Denies urinary incontinence Comments: Frequent urination Musculoskeletal: Reports no additional musculoskeletal complaints, Reports back pain, Denies arthralgias, Denies joint swelling, Denies neck pain, Denies numbness and Denies tingling Skin/Breast: Reports system reviewed and no additional complaints, except as docu and Denies rash Reports system reviewed and no additional complaints, except as documented, Denies dizziness, Denies headache(s), Denies numbness, Denies tingling and Denies weakness [facility] Past Medical History Attestation statement: The following information was validated with the patient. Source: old records reviewed and nursing notes reviewed Medical History Aortic stenosis, severe Atherosclerotic cardiovascular disease Chest pain History of heart attack Precordial chest pain Surgical History History of cataract surgery History of D&C History of hand surgery History of heart artery stent History of kyphoplasty History of laminectomy S/P TAVR (transcatheter aortic valve replacement) Family History Family History Father Hypertension Mother Thyroid cancer Sister Breast cancer Social History Social History Housing: House Alcohol intake: never Patient Tobacco Use Status: Never used Tobacco e-Cigarette/Vaping Use: Never Used Second Hand Smoke Exposure: No Advance Directives: Yes Advance Directives on File: Yes Advance Directives Date on File: 02/06/21 service: No Current occupational status: retired Cognitive needs: Yes (walker/cane) Hearing needs: No Vision needs: Yes (glasses) Physical Exam ED Vital Signs: Vital Signs - 24 hr 02/06/22 20:10 02/06/22 21:01 Temperature 98.0 F 98.5 F Pulse Rate 64 63 Respiratory Rate 18 18 Blood Pressure 133/43 L 134/41 L Pulse Oximetry 98 97 Oxygen Delivery Method Room Air Room Air BMI result Body Mass Index 28.2 Const General: cooperative, healthy appearing and comfortable Orientation/consciousness: patient oriented x3 Limitations: no limitations HENMT Head: Yes normal to inspection Ears: hearing grossly normal bilaterally General nose exam: Normal external nose present Face and sinus: Yes normal facial exam Mouth: Normal oral and palatal mucosa present Throat: Yes posterior oropharynx normal Eyes General: appearance normal, both eyes and all related structures Neck Neck: Yes normal visual inspection Chest Chest palpation & inspection: normal inspection of the chest Resp Effort & Inspection: normal respiratory effort Auscultation: clear to auscultation bilaterally Cardio Rate: regular rate Rhythm: regular rhythm Peripheral pulses: Peripheral pulses 2+ throughout GI Inspection: Yes normal to inspection Palpation (GI): Soft to palpation and Tenderness to palpation present (GI) (Diffusely tender) General: Yes no CVA tenderness Back/Spine/Pelvis Back: no CVA tenderness Skin General skin exam: no rashes or lesions noted Neuro General: patient oriented x3 and moves all extremities Extrem General: Yes normal to inspection, Yes no pedal edema and Yes no calf tenderness Course Reevaluation(s) Reevaluation #1: Abdominal CT scan is concerning for gallstones. Patient is tender in the right upper quadrant. Will obtain a ultrasound to eval for acute cholecystitis. Reviewed labs which show anemia at baseline. Mildly elevated AST and ALT unchanged from previous. Chemistries are otherwise unremarkable Time: 10:30 Reevaluation #2: Abdominal ultrasound shows gallstones with no acute cholecystitis. Patient tells me pain is improved with Tylenol. She is tolerating p.o.. She can follow up outpatient with surgery as needed. We discussed dietary changes for home. Reviewed worrisome signs and symptoms with the patient her family. Comfortable plan for discharge home. Time: 23:45 MDM - Abdominal Pain MDM Narrative Medical decision making narrative: 86-year-old female here with reports of several days of abdominal discomfort with radiation to the back with urinary frequency. History of chronic UTIs not currently on any antibiotics. On exam the patient has diffuse abdominal tenderness with no rebound or guarding. She has no CVA tenderness. Vitals are stable. Will check labs, UA, CT diff dx includes renal colic, uti, divert Medical Records Attestation: I reviewed the patient's medical records. Lab Data Attestation: I reviewed the patient's lab results. Result diagrams: 02/06/22 20:21 02/06/22 20:21 Labs: Lab Results 02/06/22 02/06/22 02/06/22 Range/Units 20:21 20:21 22:07 WBC 7.1 (4.8-10.8) X10*3/uL RBC 3.02 L (4.20-5.50) X10*6/uL Hgb 9.0 L (12.0-16.0) g/dl Hct 27.6 L (37.0-47.0) % MCV 91.4 (80.0-98.0) fL MCH 29.8 (27.0-33.0) pg MCHC 32.6 (31.0-35.0) g/dl RDW 16.4 H (11.0-16.0) % Plt Count 182 (160-400) X10*3/uL MPV 9.1 L (9.4-12.3) fL Immature Gran % (Auto) 0.1 (0.0-0.4) % Neut % (Auto) 59.8 (45-73) % Lymph % (Auto) 29.6 (20-40) % Stanton % (Auto) 7.5 (2-11) % Eos % (Auto) 2.4 (0-4) % Baso % (Auto) 0.6 (0-2) % Lymph # (Auto) 2.1 (1.2-4.9) X10*3/uL Stanton # (Auto) 0.5 (0.1-1.2) X10*3/uL Eos # (Auto) 0.2 (0.0-0.4) X10*3/uL Baso # (Auto) 0.0 (0.0-0.2) X10*3/uL Abs Immat Gran (auto) 0.01 (0.00-0.03) X10*3/uL Absolute Neuts (auto) 4.3 (2.0-8.3) x10*3/uL Absolute Nucleated RBC 0.000 (0.0-0.012) X10*3/uL Nucleated RBC % (auto) 0.0 (0.0-0.2) /100WBC Sodium 132 L (135-145) mmol/L Potassium 4.5 (3.3-5.1) mmol/L Chloride 101 (96-108) mmol/L Carbon Dioxide 24 (22-29) mmol/L Anion Gap 12 (12-20) BUN 22 H (9-16) mg/dL Creatinine 1.11 (0.5-1.4) mg/dL Estim Creat Clear Calc 39.4 Estimated GFR 47 Random Glucose 153 H (60-115) mg/dL Calcium 8.5 D (8.4-10.2) mg/dL Total Bilirubin 0.5 (0.0-1.0) mg/dL AST 47 H (5-31) U/L ALT 36 H (0-31) U/L Alkaline Phosphatase 63 (39-117) U/L Total Protein 6.5 (6.5-8.0) g/dL Albumin 3.8 (3.5-5.0) g/dL Lipase 28 (8-78) U/L Urine Color YELLOW Urine Appearance CLEAR Urine pH 6.0 (5.0-8.0) Ur Specific Warden 1.010 (1.005-1.025) Urine Protein NEG (NEG-TRACE) MG/DL Urine Glucose (UA) NEG (NEG) MG/DL Urine Ketones NEG (NEG) MG/DL Urine Blood NEG (NEG) Urine Nitrite NEG (NEG) Ur Leukocyte Esterase 1+ H (NEG) Urine RBC 0 (0) /HPF Urine WBC 1-4 (0-4) /HPF Ur Squamous Epith Cells 1+ /LPF Urine Bacteria 1+ /LPF Imaging Data CT scan - abdomen: Attestation: I personally reviewed and interpreted this imaging study as follows: Radiologist's impression: FINDINGS: LUNG BASES: There is bibasilar scarring. The heart size is normal. There is aortic valve stent in place and minimal coronary artery calcifications. Moderate. Moderate elevation of right hemidiaphragm is noted. LIVER, GALLBLADDER, AND BILIARY TREE: The liver is normal in size, shape, and attenuation. No focal hepatic lesion or biliary ductal dilatation is present. The gallbladder is distended with radiopaque dependent gallstones. No wall thickening.? PANCREAS: Unremarkable.? SPLEEN: Unremarkable.? ADRENAL GLANDS: Unremarkable.? KIDNEYS AND URETERS: The kidneys are normal in size, shape, and attenuation. No hydronephrosis, hydroureter, or calculi seen. There is mild bilateral perinephric stranding. ? BLADDER: Unremarkable.? GASTROINTESTINAL TRACT: There is scattered stool and gas seen throughout the colon without significant distention. The small bowel loops are normal caliber. The stomach is distended with recently ingested food. Appendix is not visualized. No inflammatory process, free air or free fluid.? ABDOMINAL WALL: No significant hernia is appreciated.? LYMPH NODES: Normal. VASCULAR: Unremarkable. PELVIC VISCERA: The uterus is anteverted with calcified uterine fibroid. No adnexal mass, abnormal pelvic, inguinal lymph nodes or free fluid.? OSSEOUS STRUCTURES: Degenerative disc changes with vacuum disc phenomena and spondylosis at every lumbar disc level. There is cement augmentation L1 vertebra for an old healed fracture. No aggressive lytic or sclerotic process seen. There is moderate ventral spondylosis. There are 2 screws traversing the left SI joint for fusion? CT/CT abdomen pelvis wo con IMPRESSION: Distended gallbladder with cholelithiasis and no wall thickening. ? Mild constipation without obstruction. Calcified uterine fibroid. ? Fused left SI joint with 2 screws. There are degenerative disc changes with spondylosis at every lumbar disc level.? ? Fleischner guidelines were followed. US - abdomen: Attestation: I personally reviewed and interpreted this imaging study as follows: Radiologist's impression: FINDINGS: GALLBLADDER: Gallbladder is distended. There are multiple small stones layering dependently in the fundus of the gallbladder. No gallbladder wall thickening or pericholecystic fluid. Positive ultrasound Parker's sign. COMMON BILE DUCT: Normal in caliber measuring 0.4 cm in diameter. US/US abdomen limited IMPRESSION: Cholelithiasis. No acute change of gallbladder wall. Positive ultrasound Parker's sign. Discharge Plan Discharge Clinical Impression: Cholelithiasis Patient Disposition: Home, Self-Care Instructions: Gallstones (ED) Additional Instructions: Very bland, low fat diet Return for severe abdominal pain, vomiting, fever or jaundice skin Prescriptions: No Action calcium carbonate 600 mg calcium (1,500 mg) tablet 600 mg PO DAILY@1700 cod liver oil Capsule 1 cap PO DAILY fexofenadine 180 mg tablet 180 mg PO BEDTIME ferrous sulfate 325 mg (65 mg iron) tablet 325 mg PO DAILY vitamin B complex [B Complex-Vitamin B12] Tablet 1 tab PO DAILY vitamin E succinate 400 unit tablet 400 unit PO DAILY acetaminophen 500 mg tablet 1,000 mg PO .twice a day amitriptyline 10 mg tablet 10 mg PO BEDTIME Qty: 90 1RF fluticasone propionate 220 mcg/actuation HFA aerosol inhaler 2 puff inhalation BID Qty: 12 3RF nifedipine 30 mg tablet extended release 30 mg PO DAILY Qty: 90 0RF metoprolol tartrate 25 mg tablet 25 mg PO BID Qty: 180 3RF clopidogrel 75 mg tablet 75 mg PO DAILY Qty: 90 0RF aspirin 81 mg tablet,delayed release (DR/EC) 81 mg PO DAILY Qty: 90 3RF atorvastatin 80 mg tablet 80 mg PO DAILY 90 Days Qty: 90 2RF Vitamin C With Vanessa Hips 1,000 mg Tablet Extended Release 1,000 mg PO Q12H cyanocobalamin (vitamin B-12) 1,000 mcg Tablet 1,000 mcg PO DAILY pyridoxine (vitamin B6) 100 mg Tablet 100 mg PO DAILY vit C-vit S-frqfrb-dwpoqsyq Capsule 2 cap PO DAILY lysine 1,000 mg tablet 1,000 mg PO DAILY alendronate 70 mg tablet 70 mg PO QWEEK Qty: 12 1RF omeprazole 20 mg capsule,delayed release(DR/EC) 20 mg PO DAILY@0630 [place] [place] blood pressure monitor Kit See Rx Instructions .Route Qty: 1 0RF Rx Instructions: As directed cholecalciferol (vitamin D3) 25 mcg (1,000 unit) capsule 25 mcg PO DAILY albuterol sulfate [ProAir HFA] 90 mcg/actuation HFA aerosol inhaler 2 puff inhalation Q6H PRN (Reason: bronchospasm) 30 Days Qty: 8.5 3RF ciprofloxacin 250 mg/5 mL suspension,microcapsule recon 250 mg PO BID Retacrit 40,000 unit/mL solution See Rx Instructions .ROUTE .COMPLEX Rx Instructions: EVERY 2 WEEKS Referrals: Mateo Carbajal MD [Physician] - 2 weeks (as needed) Interventions: ED Discharge Assessment Last Done: 02/06/22 23:43 Discharge Date/Time: 02/06/22 23:43
[2022-02-06 22:30] LABS: Appearance Urine CLEAR; Color Urine YELLOW; Glucose Urine UA NEG (NEG); Leukocyte Esterase Urine 1+ (NEG); Nitrite Urine NEG (NEG); UACC Culture Trigger YES; Urine Blood NEG (NEG); Urine Ketones NEG (NEG); Urine Protein NEG (NEG-TRACE)
[2022-02-06] MEDS: Acetaminophen 325 MG TABLET 975 MG PO (22:31)
[2022-02-06 22:40] LABS: Bacteria Urine 1+ /LPF; RBC Urine 0 /HPF (0); Squamous Epithelial Cell Urine 1+ /LPF
== END 2022-02-06 23:43 | disposition home or self-care (01) ==
PROVIDERS: Nurse Practitioner Family; Emergency Provider Emergency Medicine Emergency Medical Services; PCP Internal Medicine
DX: K80.20 Calculus of gallbladder without cholecystitis without obstruction (principal); R10.9 Unspecified abdominal pain; I10 Essential (primary) hypertension
CPT/HCPCS: 36415; 74176; 76705; 80053; 81001; 83690; 85025; 87086; 87147; 99284

== ENCOUNTER 2022-02-16 11:45 | Emergency (ER) | payer BC, SELFPAY ==
[2022-02-16 11:48] VITALS: BP 136/62; PULSE 65; RESP 18; TEMP 36.9; O2SAT 96; BMI 29.1
--- NOTE | 2022-02-16 11:54 | ED.GENADULT ---
HPI - General Adult General Chief complaint: Eye Problems Stated complaint: Cellulitis L eye Time Seen by Provider: 02/16/22 11:54 Source: patient and family (daughter) Mode of arrival: ambulatory Limitations: no limitations History of Present Illness HPI narrative: Patient is an 86 year old female presenting to the emergency department today with left eye redness, swelling, and pain. Patient states that she was seen at an urgent care and they diagnosed her with cellulitis of the left eye however, she is concerned that it is shingles of the eye. Patient states that it is getting worse even after starting the ABX. Patient denies any dizziness, lightheadedness, abdominal pain, nausea, vomiting, fever, chills, blurry vision, double vision, loss of vision, chest pain, difficulty breathing, shortness of breath, back pain, night sweats, pain with urination, increased urinary frequency, increased urinary urgency, blood in her urine or stool, syncope or a near syncopal episode, recent trauma or falls, bowel incontinence, bladder incontinence, bowel retention, bladder retention, or any other complaints at this time. Onset (ago): day(s) Location: eyes (left) Radiation: non-radiation Severity: mild Severity scale (1-10): 2 Quality: burning and aching Pain Consistency: constant Relieving factors: none Exacerbating factors: none Associated symptoms: denies other symptoms Treatments prior to arrival: none Related Data Home Medications Medication Instructions Recorded Confirmed omeprazole 20 mg capsule,delayed 20 mg PO DAILY@0630 07/10/20 01/01/22 release lysine 1,000 mg tablet 1,000 mg PO DAILY 12/17/20 01/01/22 calcium carbonate 600 mg calcium 600 mg PO DAILY@1700 12/31/20 01/01/22 (1,500 mg) tablet cod liver oil 1 cap PO DAILY 12/31/20 01/01/22 ferrous sulfate 325 mg (65 mg 325 mg PO DAILY 12/31/20 01/01/22 iron) tablet fexofenadine 180 mg tablet 180 mg PO BEDTIME 12/31/20 01/01/22 vitamin B complex (B 1 tab PO DAILY 12/31/20 01/01/22 Complex-Vitamin B12) vitamin E succinate 268 mg (400 400 unit PO DAILY 12/31/20 01/01/22 unit) tablet ascorbic acid (vitamin C) 1,000 mg 1,000 mg PO Q12H 02/06/21 01/01/22 tablet,extended release (Vitamin C With Vanessa Hips) cyanocobalamin (vitamin B-12) 1,000 mcg PO DAILY 02/06/21 01/01/22 1,000 mcg tablet pyridoxine (vitamin B6) 100 mg 100 mg PO DAILY 02/06/21 01/01/22 tablet vit C-vit I-[id number]-[id number] capsule 2 cap PO DAILY 02/06/21 01/01/22 acetaminophen 500 mg tablet 1,000 mg PO .twice a day Pain, Mild 03/13/21 01/01/22 cholecalciferol (vitamin D3) 25 25 mcg PO DAILY 11/05/21 01/01/22 mcg (1,000 unit) capsule ciprofloxacin 250 mg/5 mL oral 250 mg PO BID 12/30/21 01/01/22 suspension epoetin kamilah-epbx 40,000 unit/mL See Rx Instructions .Route .COMPLEX 12/31/21 01/01/22 injection solution (Retacrit) Previous Rx's Medication Instructions Recorded alendronate 70 mg tablet 70 mg PO QWEEK #12 tabs 06/20/21 blood pressure monitor #1 ea 07/15/21 amitriptyline 10 mg tablet 10 mg PO BEDTIME #90 tabs 09/15/21 albuterol sulfate 90 mcg/actuation 2 puff inhalation Q6H PRN 11/05/21 aerosol inhaler (ProAir HFA) bronchospasm 30 days #8.5 grams fluticasone propionate 220 2 puff inhalation BID #12 grams 11/07/21 mcg/actuation HFA aerosol inhaler nifedipine 30 mg tablet,extended 30 mg PO DAILY #90 tabs 12/03/21 release metoprolol tartrate 25 mg tablet 25 mg PO BID #180 tabs 12/09/21 clopidogrel 75 mg tablet 75 mg PO DAILY #90 tabs 12/24/21 aspirin 81 mg tablet,delayed 81 mg PO DAILY #90 tabs 12/30/21 release atorvastatin 80 mg tablet 80 mg PO DAILY 90 days #90 tabs 01/17/22 clindamycin HCl 300 mg capsule 300 mg PO Q8H #24 caps 02/14/22 acyclovir 800 mg tablet 800 mg PO 5XD 7 days #35 tabs 02/16/22 Allergies Allergy/AdvReac Type Severity Reaction Status Date / Time amoxicillin [AMOXICILLIN] Allergy Intermediate RASH Verified 02/06/22 20:10 cephalexin Allergy Intermediate Nausea Verified 02/06/22 20:10 Erythromycin Allergy Intermediate Nausea and Verified 02/06/22 20:10 Vomiting meloxicam Allergy Intermediate Nausea and Verified 02/06/22 20:10 Vomiting meperidine [Demerol] Allergy Intermediate Nausea and Verified 02/06/22 20:10 Vomiting nitrofurantoin Allergy Intermediate Rash Verified 02/06/22 20:10 [From MACROBID] Penicillins Allergy Intermediate Rash Verified 02/06/22 20:10 Sulfa (Sulfonamide Allergy Intermediate RASH Verified 02/06/22 20:10 Antibiotics) [SULFA(SULFONAMIDE ANTIBIOTICS)] tramadol Allergy Intermediate Nausea and Verified 02/06/22 20:10 Vomiting codeine [CODEINE] AdvReac Intermediate NAUSEA Verified 02/06/22 20:10 Review of Systems Constitutional: Constitutional: Reports no additional constitutional complaints, Denies chills, Denies fever(s) and Denies night sweats Eyes: Eyes: Reports no additional eye complaints, Denies blurry vision, Denies change in vision, Denies diplopia, Denies eye discharge, Denies loss of vision and Denies eye pain Comments: redness, swelling, and burning pain around the left eye ENT: Denies dizziness Cardiovascular: Cardiovascular: Reports no additional cardiovascular complaints, Denies chest pain, Denies lightheadedness, Denies Loss of Consciousness and Denies dyspnea Respiratory: Respiratory: Reports no additional respiratory complaints and Denies dyspnea Gastrointestinal: Gastrointestinal: Reports no additional gastrointestinal complaints, Denies abdominal pain, Denies melena, Denies hematochezia, Denies change in bowel habits and Denies change in stool character Genitourinary: Genitourinary: Denies hematuria, Denies urinary frequency, Denies dysuria, Denies urinary incontinence, Denies urinary hesitancy and Denies urinary urgency Musculoskeletal: Musculoskeletal: Reports no additional musculoskeletal complaints, Denies numbness and Denies tingling Neurologic: Denies dizziness, Denies loss of vision, Denies numbness and Denies tingling Psychiatric: Psychiatric: Reports no additional psychiatric complaints Endocrine: Endocrine: Reports no additional endocrine complaints Hematologic/Lymphatic: Hematologic/Lymphatic: Reports no additional hematologic/lymphatic complaints Allergic/Immunologic: Allergic/Immunologic: Reports no additional allergic/immunologic complaints PMFSH Past Medical History Attestation statement: The following information was validated with the patient. Source: old records reviewed Medical History Aortic stenosis, severe Atherosclerotic cardiovascular disease Chest pain History of heart attack Precordial chest pain Surgical History History of cataract surgery History of D&C History of hand surgery History of heart artery stent History of kyphoplasty History of laminectomy S/P TAVR (transcatheter aortic valve replacement) Family History Family History Father Hypertension Mother Thyroid cancer Sister Breast cancer Social History Social History Housing: House Alcohol intake: never Patient Tobacco Use Status: Never used Tobacco e-Cigarette/Vaping Use: Never Used Second Hand Smoke Exposure: No Advance Directives: Yes Advance Directives on File: Yes Advance Directives Date on File: 02/06/21 service: No Current occupational status: retired Cognitive needs: Yes (walker/cane) Hearing needs: No Vision needs: Yes (glasses) Physical Exam ED Vital Signs: Vital Signs - 24 hr 02/16/22 11:48 Temperature 98.5 F Pulse Rate 65 Respiratory Rate 18 Blood Pressure 136/62 Pulse Oximetry 96 Oxygen Delivery Method Room Air BMI result Body Mass Index 29.1 Const General: cooperative, no acute distress, alert and awake Nutritional Appearance: well nourished Orientation/consciousness: patient oriented x3 Limitations: no limitations [facility] Head: Yes normal to inspection and Yes atraumatic Ears: hearing grossly normal bilaterally and external ears normal General nose exam: Normal external nose present, no nasal discharge noted and no epistaxis Face and sinus: Yes normal facial exam, No abrasion and No laceration Mouth: Normal oral and palatal mucosa present, no drooling and no muffled voice Eyes Other: mild erythema and swelling surrounding the left eye involving the upper and bottom lid with vesicles on the left forehead just superior to the left eyebrow Conjunctivae: conjunctivae normal Pupils: Equal, round and reactive pupils present EOM: EOMs intact bilaterally Neck Neck: Yes normal visual inspection, Yes full ROM and Yes no lymphadenopathy Chest Chest palpation & inspection: normal inspection of the chest Resp Effort & Inspection: normal respiratory effort and able to speak in complete sentences Auscultation: clear to auscultation bilaterally Cardio Rate: regular rate Rhythm: regular rhythm GI Inspection: Yes normal to inspection Neuro General: patient oriented x3 and moves all extremities Cranial nerves: Yes Equal, round and reactive pupils present Cognition (Neuro): normal cognition Motor exam (neuro): 5/5 motor strength present throughout Sensory Exam: Normal double simultaneous stimulation for sensation Coordination: [id number] test normal Extrem General: Yes normal to inspection, Yes full ROM and Yes capillary refill normal Psych Appearance: grossly normal Mental Status: mental status grossly normal Affect: normal affect Attitude: cooperative Thought process: Normal thought process present Thought content: Normal thought content present Insight: Good insight present (Psych) Medical Decision Making MDM Narrative Medical decision making narrative: Patient is an 86 year old female presenting to the emergency department today with left periorbital cellulitis vs. left periorbital shingles. Patient's physical exam showed mild erythema and swelling surrounding the left eye involving the upper and bottom lid with vesicles on the left forehead just superior to the left eyebrow. I explained my physical exam findings to the patient and the patient's daughter. I answered all questions asked by the patient and the patient's daughter. I stressed the importance of the patient taking her medication as prescribed. I stressed the importance of the patient following up with her primary care provider. I stressed the importance of the patient returning to the emergency department immediately if her symptoms were to worsen or if she were to develop any dizziness, shortness of breath, difficulty breathing, chest pain, blurry vision, loss of vision, nausea, vomiting, abdominal pain, fever, chills, back pain, or any other complaints. Patient and the patient's daughter verbalized agreement and understanding with this treatment plan and discharge. Differential Diagnosis Differential Diagnosis: shingles, periorbital cellulitis Medical Records Medical records reviewed: Yes I reviewed the patient's medical records. Discharge Plan Discharge Clinical Impression: Shingles Patient Disposition: Home, Self-Care Instructions: Joel (ED) Additional Instructions: Follow up with your primary care provider and an extracorporeal circulation specialist. Return to the emergency department immediately if your symptoms worsen or if you develop any dizziness, shortness of breath, difficulty breathing, chest pain, blurry vision, loss of vision, nausea, vomiting, abdominal pain, fever, chills, back pain, or any other complaints. Prescriptions: New acyclovir 800 mg tablet 800 mg PO 5XD 7 Days Qty: 35 0RF Rx Instructions: space evenly during waking hours No Action calcium carbonate 600 mg calcium (1,500 mg) tablet 600 mg PO DAILY@1700 cod liver oil Capsule 1 cap PO DAILY fexofenadine 180 mg tablet 180 mg PO BEDTIME ferrous sulfate 325 mg (65 mg iron) tablet 325 mg PO DAILY vitamin B complex [B Complex-Vitamin B12] Tablet 1 tab PO DAILY vitamin E succinate 400 unit tablet 400 unit PO DAILY acetaminophen 500 mg tablet 1,000 mg PO .twice a day amitriptyline 10 mg tablet 10 mg PO BEDTIME Qty: 90 1RF fluticasone propionate 220 mcg/actuation HFA aerosol inhaler 2 puff inhalation BID Qty: 12 3RF nifedipine 30 mg tablet extended release 30 mg PO DAILY Qty: 90 0RF metoprolol tartrate 25 mg tablet 25 mg PO BID Qty: 180 3RF clopidogrel 75 mg tablet 75 mg PO DAILY Qty: 90 0RF aspirin 81 mg tablet,delayed release (DR/EC) 81 mg PO DAILY Qty: 90 3RF atorvastatin 80 mg tablet 80 mg PO DAILY 90 Days Qty: 90 2RF Vitamin C With Vanessa Hips 1,000 mg Tablet Extended Release 1,000 mg PO Q12H cyanocobalamin (vitamin B-12) 1,000 mcg Tablet 1,000 mcg PO DAILY pyridoxine (vitamin B6) 100 mg Tablet 100 mg PO DAILY vit C-vit [id number]-[id number] Capsule 2 cap PO DAILY lysine 1,000 mg tablet 1,000 mg PO DAILY alendronate 70 mg tablet 70 mg PO QWEEK Qty: 12 1RF clindamycin HCl 300 mg capsule 300 mg PO Q8H Qty: 24 0RF omeprazole 20 mg capsule,delayed release(DR/EC) 20 mg PO DAILY@0630 ([facility] [place]) blood pressure monitor Kit See Rx Instructions .Route Qty: 1 0RF Rx Instructions: As directed cholecalciferol (vitamin D3) 25 mcg (1,000 unit) capsule 25 mcg PO DAILY albuterol sulfate [ProAir HFA] 90 mcg/actuation HFA aerosol inhaler 2 puff inhalation Q6H PRN (Reason: bronchospasm) 30 Days Qty: 8.5 3RF ciprofloxacin 250 mg/5 mL suspension,microcapsule recon 250 mg PO BID Retacrit 40,000 unit/mL solution See Rx Instructions .ROUTE .COMPLEX Rx Instructions: EVERY 2 WEEKS Referrals: Marcelino Weems [Physician] - Michael Shepard MD [Primary Care Provider] - Interventions: ED Discharge Assessment Last Done: 02/16/22 12:21 Discharge Date/Time: 02/16/22 12:21 Print Language: Estonian
== END 2022-02-16 12:21 | disposition home or self-care (01) ==
PROVIDERS: Emergency Provider Emergency Medicine Emergency Medical Services; PCP Internal Medicine
DX: B02.30 Zoster ocular disease, unspecified (principal)
CPT/HCPCS: 99282; 99283

== ENCOUNTER → 2022-04-07 12:58 | Outpatient (BNVA) | payer BC, SELFPAY | PROVIDERS: PCP Internal Medicine; Visit Provider Orthopaedic Surgery | DX: M19.011 Primary osteoarthritis, right shoulder (principal) | CPT/HCPCS: 20610; J1100 ==

== ENCOUNTER 2022-06-26 15:33 | Outpatient (REF) | payer BC, SELFPAY ==
[2022-06-26 16:13] LABS: Hematocrit 29.1 % (37.0-47.0); Hemoglobin 9.3 g/dl (12.0-16.0); Mean Corpuscular Hemoglobin 31.4 pg (27.0-33.0); Mean Corpuscular Volume 98.3 fL (80.0-98.0); Mean Platelet Volume 9.7 fL (9.4-12.3); Platelet Count 207 X10*3/uL (160-400); Red Blood Count 2.96 X10*6/uL (4.20-5.50); Red Cell Distribution Width 13.4 % (11.0-16.0); White Blood Count 8.4 X10*3/uL (4.8-10.8)
== END 2022-06-26 15:34 | disposition home or self-care (01) ==
LOC: HO.LAB 15:33
PROVIDERS: Visit Provider Nurse Practitioner Family
DX: D64.9 Anemia, unspecified (principal)
CPT/HCPCS: 36415; 85027

== ENCOUNTER → 2022-07-09 12:50 | Outpatient (BNVA) | payer BC, SELFPAY | PROVIDERS: PCP Internal Medicine; Referring Provider Internal Medicine; Visit Provider Internal Medicine Cardiovascular Disease | DX: I44.0 Atrioventricular block, first degree (principal); I25.10 Atherosclerotic heart disease of native coronary artery without angina pectoris; R94.31 Abnormal electrocardiogram [ECG] [EKG]; Z98.890 Other specified postprocedural states | CPT/HCPCS: 93005 ==

== ENCOUNTER 2022-10-08 16:56 | Outpatient (REF) | payer BC, SELFPAY ==
[2022-10-08 17:30] LABS: Hematocrit 30.1 % (37.0-47.0); Hemoglobin 9.6 g/dl (12.0-16.0); Mean Corpuscular HGB Conc 31.9 g/dl (31.0-35.0); Mean Corpuscular Hemoglobin 30.8 pg (27.0-33.0); Mean Corpuscular Volume 96.5 fL (80.0-98.0); Mean Platelet Volume 10.5 fL (9.4-12.3); Platelet Count 235 X10*3/uL (160-400); Red Blood Count 3.12 X10*6/uL (4.20-5.50); Red Cell Distribution Width 14.3 % (11.0-16.0); White Blood Count 7.8 X10*3/uL (4.8-10.8)
[2022-10-08 18:19] LABS: Alanine Aminotransferase 47 U/L (0-31); Alkaline Phosphatase 72 U/L (39-117); Aspartate Amino Transferase 51 U/L (5-31); Bilirubin Direct 0.2 mg/dL (0.0-0.5); Bilirubin Total 0.6 mg/dL (0.0-1.0); Blood Urea Nitrogen 26 mg/dL (9-16); Calcium 9.1 mg/dL (8.4-10.2); Carbon Dioxide 22 mmol/L (22-29); Chloride 106 mmol/L (96-108); Cholesterol 150 mg/dL; Estimated Glomerular Filt Rate 47; Glucose Random 93 mg/dL (60-115); HDL Cholesterol 48 mg/dL; LDL Cholesterol Calculated 78 mg/dl; Sodium 140 mmol/L (135-145); Thyroid Stimulating Hormone 0.91 uIU/mL (0.32-4.0); Total Protein 6.8 g/dL (6.5-8.0); Triglycerides 121 mg/dL
[2022-10-08 19:57] LABS: Anion Gap 16 (12-20)
== END 2022-10-08 16:57 | disposition home or self-care (01) ==
LOC: HO.LAB 16:56
PROVIDERS: Visit Provider Internal Medicine
DX: R53.83 Other fatigue (principal)
CPT/HCPCS: 36415; 80048; 80061; 80076; 84443; 85027

== ENCOUNTER → 2022-10-27 12:47 | Outpatient (BNVA) | payer BC, SELFPAY | PROVIDERS: PCP Internal Medicine; Visit Provider Orthopaedic Surgery | DX: M19.011 Primary osteoarthritis, right shoulder (principal); M75.51 Bursitis of right shoulder | CPT/HCPCS: 20610; J1100 ==

== ENCOUNTER 2022-11-11 12:53 | Outpatient (REF) | payer BC, SELFPAY ==
[2022-11-11 14:16] LABS: Alanine Aminotransferase 42 U/L (0-31); Alkaline Phosphatase 69 U/L (39-117); Anion Gap 17 (12-20); Aspartate Amino Transferase 66 U/L (5-31); Bilirubin Total 0.5 mg/dL (0.0-1.0); Blood Urea Nitrogen 23 mg/dL (9-16); Carbon Dioxide 18 mmol/L (22-29); Chloride 107 mmol/L (96-108); Estimated Glomerular Filt Rate 42; Glucose Random 94 mg/dL (60-115); Potassium 4.7 mmol/L (3.3-5.1); Sodium 137 mmol/L (135-145)
[2022-11-11 14:29] LABS: Vitamin D 25-OH Total 47.1 ng/mL (>30)
== END 2022-11-11 12:54 | disposition home or self-care (01) ==
LOC: HO.LAB 12:53
PROVIDERS: PCP Internal Medicine; Visit Provider Nurse Practitioner Family
DX: M81.0 Age-related osteoporosis without current pathological fracture (principal); M19.011 Primary osteoarthritis, right shoulder; M62.838 Other muscle spasm; M47.814 Spondylosis without myelopathy or radiculopathy, thoracic region; Z98.890 Other specified postprocedural states
CPT/HCPCS: 36415; 80053; 82306

== ENCOUNTER → 2022-11-12 14:17 | Outpatient (BNVA) | payer BC, SELFPAY | PROVIDERS: PCP Internal Medicine; Visit Provider Nurse Practitioner Family | DX: Z13.89 Encounter for screening for other disorder (principal) ==

== ENCOUNTER 2022-12-05 10:53 | Outpatient (REF) | payer BC, SELFPAY ==
--- NOTE | ~2022-12-05 | XR_ITS ---
EXAMINATION: XR BILATERAL HIPS WITH AP PELVIS CLINICAL INFORMATION: Sacrococcygeal disorder. Evaluate status of left SI joint fusion COMPARISON: Previous pelvis and bilateral hip x-rays from 2019 and sacroiliac joint x-rays from 2017 TECHNIQUE: AP view of the pelvis and single views of each hip were obtained. FINDINGS: The sacroiliac joints appear symmetric. There are 2 fixation screws overlying the left lateral sacrum. This is similar to previous exams. Bones of the pelvis are otherwise unremarkable. There is mild bilateral hip osteoarthritis with joint space narrowing and small osteophytes, left greater than right. There is soft tissue calcification adjacent to the left greater trochanter suggestive of trochanteric bursitis. There is curvature of the lower lumbar spine to the left and degenerative changes. Stable soft tissue calcification in the central pelvis probably representing a calcified fibroid. XR/XR hip BI w PEL1V IMPRESSION: 2 fixation screws overlie the left superior sacrum. The sacroiliac joints appear symmetric and similar to 2020 exam. Mild bilateral hip osteoarthritis. Soft tissue calcification adjacent to the left greater trochanter suggestive of calcific bursitis. Degenerative changes of the visualized lower lumbar spine and scoliosis.
--- NOTE | ~2022-12-05 | XR_ITS ---
EXAMINATION: XR LUMBOSACRAL SPINE WITH OBLIQUES CLINICAL INFORMATION: Fall. COMPARISON: Previous x-ray most recent February 2020. TECHNIQUE: AP, both oblique, and lateral views of the lumbar spine. Lateral view of the lumbosacral junction. FINDINGS: There is severe curvature of the lower thoracic and proximal lumbar spine to the right and lower lumbar spine to the left. There is mild 5 mm anterior subluxation of L4 with respect to L5. This is stable on flexion-extension views. There is an old L5 vertebral body compression fracture. There is old compression fracture and vertebroplasty change of the L1 vertebral body. There is multilevel degenerative disc disease and spondylosis. There is lower lumbar spine facet arthritis. There is fixation hardware seen in the left sacroiliac joint. There is atherosclerotic disease. Pelvic soft tissue calcifications probably representing calcified fibroids. XR/XR lumbar spine 6V w bending IMPRESSION: Old L1 compression fracture. L5 vertebral body compression fractures and vertebroplasty change. Severe curvature of the lower thoracic and proximal lumbar spine to the right and lower lumbar spine to the left and multilevel degenerative changes.
== END 2022-12-05 10:54 | disposition home or self-care (01) ==
LOC: HO.XRAY 10:53
PROVIDERS: PCP Internal Medicine; Visit Provider Nurse Practitioner Family
DX: M54.16 Radiculopathy, lumbar region (principal); M51.36 Other intervertebral disc degeneration, lumbar region; M47.816 Spondylosis without myelopathy or radiculopathy, lumbar region; M53.3 Sacrococcygeal disorders, not elsewhere classified; M25.551 Pain in right hip; M25.552 Pain in left hip; Z91.81 History of falling
CPT/HCPCS: 72114; 73521

== ENCOUNTER → 2022-12-19 15:12 | Outpatient (BNVA) | payer BC, SELFPAY | PROVIDERS: PCP Internal Medicine; Visit Provider Nurse Practitioner Family | DX: Z13.89 Encounter for screening for other disorder (principal) ==

== ENCOUNTER → 2023-01-09 13:53 | Outpatient (BNVA) | payer BC, SELFPAY | PROVIDERS: PCP Internal Medicine; Visit Provider Physician Assistant ==

== ENCOUNTER → 2023-01-12 13:30 | Outpatient (BNVA) | payer BC, SELFPAY | PROVIDERS: PCP Internal Medicine; Referring Provider Internal Medicine; Visit Provider Internal Medicine Cardiovascular Disease | DX: I25.10 Atherosclerotic heart disease of native coronary artery without angina pectoris (principal); I11.0 Hypertensive heart disease with heart failure; I50.32 Chronic diastolic (congestive) heart failure; Z95.2 Presence of prosthetic heart valve; Z98.890 Other specified postprocedural states | CPT/HCPCS: 93005 ==

== ENCOUNTER 2023-01-14 06:03 | Outpatient (REF) | payer BC, SELFPAY ==
--- NOTE | ~2023-01-14 | FL_ITS ---
EXAMINATION: XR FLUOROSCOPY WITH IMAGES CLINICAL INFORMATION: Right shoulder pain COMPARISON: None available. TECHNIQUE: Fluoroscopy Supervised By: Dr. Sony Garcia. Fluoroscopy Time: 0.4 minutes. Cumulative Dose: 2.8 mGy. DAP: 0.34 Gycm2. Images: 1. FINDINGS: Image demonstrates needle placement and contrast injection over the right scapula FL/FL guidance in treatment room IMPRESSION: Fluoroscopy guidance for pain management procedure
== END 2023-01-14 06:04 | disposition home or self-care (01) ==
LOC: CF 06:03
PROVIDERS: Visit Provider Internal Medicine
DX: M25.511 Pain in right shoulder (principal); G89.29 Other chronic pain
CPT/HCPCS: 64418

== ENCOUNTER → 2023-01-16 11:49 | Outpatient (BNVA) | payer BC, SELFPAY | PROVIDERS: PCP Internal Medicine; Visit Provider Internal Medicine ==

== ENCOUNTER 2023-02-04 06:08 | Outpatient (REF) | payer BC, SELFPAY ==
--- NOTE | ~2023-02-04 | FL_ITS ---
EXAMINATION: FL FLUOROSCOPY-GUIDED NEEDLE PLACEMENT CLINICAL INFORMATION: Left trochanteric bursitis. COMPARISON: None available. TECHNIQUE: Fluoroscopy guidance provided to Dr. Garcia in the OR. FLUOROSCOPY TIME: 0 minutes. FLUOROSCOPIC IMAGES: 1 saved DLP: 0.2 mGy-cm DAP: 0.05 Gy-cm2 FINDINGS: Single image demonstrates needle or probe placement adjacent to the left greater trochanter. FL/FL guided needle placement IMPRESSION: Fluoroscopy guidance for pain management procedure.
--- NOTE | ~2023-02-04 | FL_ITS ---
EXAMINATION: XR FLUOROSCOPY WITH IMAGES CLINICAL INFORMATION: Lumbar pain. COMPARISON: None available. TECHNIQUE: Fluoroscopy Supervised By: Sony Garcia MD. Fluoroscopy Time: 0.2. Cumulative Dose: 4.32 mGy. DAP: 0.494 Gycm2. Images: 3. FINDINGS: Images demonstrate needle placement adjacent to the bilateral lateral L4 and L5 vertebrae. Fusion hardware in the sacroiliac joint FL/FL guidance in treatment room IMPRESSION: Fluoroscopy guidance for pain management procedure
== END 2023-02-04 06:09 | disposition home or self-care (01) ==
LOC: CF 06:08
PROVIDERS: Visit Provider Internal Medicine
DX: M47.816 Spondylosis without myelopathy or radiculopathy, lumbar region (principal); M70.62 Trochanteric bursitis, left hip
CPT/HCPCS: 20610; 64493; 64494; 77002; J3301

== ENCOUNTER → 2023-02-06 11:56 | Outpatient (BNVA) | payer BC, SELFPAY | PROVIDERS: PCP Internal Medicine; Visit Provider Nurse Practitioner Family ==

== ENCOUNTER 2023-03-11 13:47 | Day surgery (SDC) | payer BC, SELFPAY ==
[2023-03-11 14:26] VITALS: BMI 29.5
--- NOTE | 2023-03-11 15:22 | PC.NURSE ---
report wind up operator to tato carey in pacu
--- NOTE | 2023-03-11 17:03 | PM.OP ---
Brief Operative Note Date of Service: 03/11/23 Pre-op diagnosis: Intractable right shoulder pain Post-op diagnosis: same Procedure: Temporary right suprascapular nerve stimulator placement Implants: [employer] temporary PNS system Surgeon: Sony Garcia MD Anesthesia: local Was an Business Process Expert used for this Procedure?: No Estimated blood loss (mL): 1 Pathology: none sent Condition: stable Disposition: same day
--- NOTE | 2023-03-11 17:05 | P.OP_ITS ---
Operative Note Operative Note Date of Service: 03/11/23 Narrative: Peripheral Nerve Stimulation Temporary Lead Placement, Ultrasound-Guided, Suprascapular Nerve, Right ? After the risks, benefits and alternatives were discussed with the patient and informed consent was obtained, patient was placed in the sitting position and padded to foster comfort. Appropriate skin and bony landmarks were identified using ultrasound, including the right suprascapular notch. The skin overlying the needle entry site was prepped and draped in sterile fashion. After identifying and marking the intended target along the course of the suprascapular nerve, the skin around the planned entry point and the subcutaneous tissues were injected with local anesthetic. An introducer needle and stimulating probe were assembled, inserted and advanced along the intended course of the suprascapular nerve, taking care to maintain the proper depth of insertion as the introducer was advanced under ultrasound guidance. Bony contact was achieved with the scapula. The introducer needle was delivered to a location in proximity to the nerve. Multiple stimulation parameters were used to deliver stimulation to the suprascapular nerve in concert with stimulating at multiple positions around the nerve. Nerve target acquisition was confirmed noting generation of sensory and mild motor effects (paresthesia, muscle tension, etc) in the shoulder and proximal arm; corresponding to the distribution of the suprascapular nerve. Various electrical parameter combinations were tested, and the lead location was adjusted (physically relocated under image guidance) until the patient indicated shoulder paresthesia and tension overlapping the distribution of the patient?s typical region of pain in the right shoulder joint, right posterior scapular area and proximal arm. The stimulating probe was removed from the introducer and a percutaneous lead was guided through the needle and delivered to a location in similar proximity to the nerve. Final location was verified with electrical stimulation and doc umented. The introducer needle was removed, and the exposed end of the percutaneous lead was attached to an external stimulator unit. Various electrical parameter combinations were again tested until the patient indicated paresthesia and muscle tension overlapping the distribution of the patient?s typical region of pain. After confirming that lead impedance was in the normal range, the external unit was detached, the needle was removed, and the lead was anchored at the skin. The needle entry site was occluded with dermabond. The lead was threaded into the connector block and electrical continuity and desired patient response was confirmed. The connector block was attached to the external stimulator unit. The site was covered with a sterile occlusive dressing.? A final image was taken to document final placement. The patient was observed for stability of vital signs and comfort.
--- NOTE | 2023-03-11 17:05 | MHC.SHP ---
Pre-Procedural Eval Section A Date of Service: 03/11/23 The patient is an INPATIENT: No Changes since office visit: Yes Patient answered all questions The History & Physical has been completed within 30 days and I have reviewed it.: Yes Section B Chief Complaint: Pain in right shoulder,chronic pain, Relevant Family History (Specify if Yes): No Relevant Social History: None Present Medications: see Short Stay Collaborative assessment Medical History: No relevant PMH History of Previous Operations: No relevant previous surgery Allergies: Allergies Allergy/AdvReac Type Severity Reaction Status Date / Time meperidine [From Demerol] Allergy Severe Nausea and Verified 03/11/23 14:29 Vomiting amoxicillin [AMOXICILLIN] Allergy Intermediate Rash Verified 02/13/23 05:55 cephalexin Allergy Intermediate Itching Verified 03/11/23 14:29 erythromycin base Allergy Intermediate Itching Verified 03/11/23 14:29 meloxicam Allergy Intermediate Abdominal Verified 03/11/23 14:29 Pain nitrofurantoin Allergy Intermediate Rash Verified 02/13/23 05:55 [From Macrobid] Penicillins Allergy Intermediate Rash Verified 02/13/23 05:55 Sulfa (Sulfonamide Allergy Intermediate Rash Verified 02/13/23 05:55 Antibiotics) [SULFA(SULFONAMIDE ANTIBIOTICS)] tramadol Allergy Intermediate Nausea and Verified 02/13/23 05:55 Vomiting codeine [CODEINE] AdvReac Intermediate Nausea Verified 02/13/23 05:55 Review of Systems Sugical H&P ROS: Negative: Constitution, Cardiovascular and Respiratory Exam Surgical H&P Exam: Normal: HEENT, Normal: Heart and Normal: Lungs Plan Diagnosis/Plan: Unchanged I have reviewed the history and physical and performed a pertinent physical examination on my patient. No changes have occurred unless specified. Proceed with right suprascapular nerve stimulator placement. Time Spent With Patient Time: Total time managing care of this patient today ____ minutes.
[2023-03-11 17:09] VITALS: BP 137/53; PULSE 58; RESP 20; TEMP 36.1; O2SAT 100
== END 2023-03-11 17:53 | disposition home or self-care (01) ==
PROVIDERS: PCP Internal Medicine; Visit Provider Internal Medicine
PROC: (CPT 64555; principal; 2023-03-11 15:30)
DX: G89.29 Other chronic pain (principal); M25.511 Pain in right shoulder; I10 Essential (primary) hypertension; J45.909 Unspecified asthma, uncomplicated; Z88.0 Allergy status to penicillin; Z88.2 Allergy status to sulfonamides; Z88.5 Allergy status to narcotic agent
CPT/HCPCS: 64555; C1778

== ENCOUNTER → 2023-03-11 13:47 | Outpatient (BNV) | payer BC, SELFPAY | PROVIDERS: PCP Internal Medicine; Visit Provider Internal Medicine | DX: M25.511 Pain in right shoulder (principal) | CPT/HCPCS: 64555 ==

== ENCOUNTER → 2023-03-16 11:43 | Outpatient (BNVA) | payer BC, SELFPAY | PROVIDERS: PCP Internal Medicine; Visit Provider Internal Medicine ==

== ENCOUNTER 2023-05-08 11:45 | Outpatient (AMB) | payer BC, SELFPAY ==
[2023-05-08 12:01] VITALS: BP 145/62; PULSE 56; RESP 14; O2SAT 96; BMI 29.5
--- NOTE | 2023-05-08 12:01 | MHC.OFFVIS ---
Intake Vital Signs 05/08/23 12:01 Height 5 ft 5 in Weight 177 lb BMI 29.5 BP 145/62 H Blood Pressure Location Rt brachial Position Sitting Respiration 14 Pulse 56 Pulse Source Pulse Oximeter Pulse Oximetry (%) 96 Oxygen Delivery Method Room Air Intake Visit Reasons: Sprint removal Allergies meperidine [From Demerol] Allergy (Severe, Verified 03/16/23 12:15) Nausea and Vomiting amoxicillin [AMOXICILLIN] Allergy (Intermediate, Verified 03/16/23 12:15) Rash cephalexin Allergy (Intermediate, Verified 03/16/23 12:15) Itching erythromycin base Allergy (Intermediate, Verified 03/16/23 12:15) Itching meloxicam Allergy (Intermediate, Verified 03/16/23 12:15) Abdominal Pain nitrofurantoin [From Macrobid] Allergy (Intermediate, Verified 03/16/23 12:15) Rash Penicillins Allergy (Intermediate, Verified 03/16/23 12:15) Rash Sulfa (Sulfonamide Antibiotics) [SULFA(SULFONAMIDE ANTIBIOTICS)] Allergy (Intermediate, Verified 03/16/23 12:15) Rash tramadol Allergy (Intermediate, Verified 03/16/23 12:15) Nausea and Vomiting codeine [CODEINE] Adverse Reaction (Intermediate, Verified 03/16/23 12:15) Nausea HPI Sprint removal HPI Details 87-year-old female presenting for low right suprascapular nerve stimulator removal. Patient reports an initial period of improvement following the stimulator placement but then her symptoms tended to return to baseline. She has been feeling significant achiness in her shoulder and upper arm for the past 2 days. She is interested in trialing a different therapy for her shoulder pain given the state of her shoulder right now. She is also interested in continuing facet interventions for her low back pain. She had 100% relief from her 1st round of diagnostic medial branch blocks. She is amenable to proceeding with the 2nd out of diagnostic medial branch blocks and then potentially a radiofrequency ablation of the medial branches. She had a radiofrequency ablation of the medial branches several years ago in [place] that was moderately successful. 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) Family History Father Hypertension Mother Thyroid cancer Sister Breast cancer Social History Housing: House Alcohol intake: never Patient Tobacco Use Status: Never used Tobacco e-Cigarette/Vaping Use: Never Used Second Hand Smoke Exposure: No Advance Directives Date on File: 02/06/21 service: No Current occupational status: retired Cognitive needs: Yes (walker/cane) Hearing needs: No Vision needs: Yes (glasses) Physical Exam Vital Signs: Last Vital Signs Pulse 56 05/08/23 12:01 Resp 14 05/08/23 12:01 BP 145/62 H 05/08/23 12:01 Pulse Ox 96 05/08/23 12:01 Oxygen Delivery Method Room Air 05/08/23 12:01 BMI result Body Mass Index 29.5 On exam today: Appears afebrile. Alert and oriented. Mood and affect appropriate. Follows and participates in conversation appropriately. Respiratory effort is unlabored. Able to transition from sit to stand unassisted. Ambulates with bilaterally normal heel strike and toe off. Able to stand and walk on toes and heels. Lead removed with tip intact. Assessment & Plan Assessment & Plan (1) Lumbar spondylosis: Code(s): M47.816 - Spondylosis without myelopathy or radiculopathy, lumbar region (2) Primary osteoarthritis, right shoulder: Code(s): M19.011 - Primary osteoarthritis, right shoulder Plan For her shoulder pain, I recommended observing the shoulder over the next 3-4 weeks and allowing the muscles to recover from a period of continue stimulation. I am hopeful that she might still improve now that the stimulation is off. If she does not improve from her current status in terms of her shoulder pain, we will consider radiofrequency ablation of the articular branches of the suprascapular and axillary nerves as well as the lateral pectoral nerve. This will need to be done under sedation. For now we will proceed with scheduling her for repeat diagnostic bilateral L3, L4 medial branch and L5 dorsal ramus blocks. Following a successful 2nd of diagnostic blocks, we will proceed with radiofrequency ablation of the lumbar medial branches under local anesthesia. The patient expressed understanding and is amenable to this plan. Justification for interventional therapy: Patient with average pain > 6/10 Patient has exhausted conservative therapy including physical therapy and oral medications. First diagnostic injection provided 100% relief. Coding Level of Care Code Est Pt Level 4 (39848) Diagnoses Lumbar spondylosis M47.816 Primary osteoarthritis, right shoulder M19.011
== END 2023-05-08 12:15 | disposition home or self-care (01) ==
PROVIDERS: PCP Internal Medicine; Visit Provider Internal Medicine
DX: M47.816 Spondylosis without myelopathy or radiculopathy, lumbar region (principal); M19.011 Primary osteoarthritis, right shoulder
CPT/HCPCS: 99214

== ENCOUNTER → 2023-05-08 11:45 | Outpatient (BNVA) | payer BC, SELFPAY | PROVIDERS: PCP Internal Medicine; Visit Provider Internal Medicine ==

== ENCOUNTER 2023-05-18 13:45 | Outpatient (REF) | payer BC, SELFPAY ==
--- NOTE | ~2023-05-18 | XR_ITS ---
EXAMINATION: XR CHEST CLINICAL INFORMATION: Fatigue COMPARISON: 02/05/2021 TECHNIQUE: 2 views of the chest were obtained. FINDINGS: Valve replacement again seen. Heart and mediastinum within normal limits. Aortic calcifications. No vascular congestion, consolidations or effusions. No change elevated right hemidiaphragm, scoliosis and L1 vertebroplasty cement. XR/XR chest 2V IMPRESSION: No acute cardiopulmonary disease.
[2023-05-18 15:22] LABS: MANUAL DIFF FLAG NO
[2023-05-18 15:27] LABS: Basophils Absolute Auto 0.1 X10*3/uL (0.0-0.2); Basophils Percent Auto 0.8 % (0-2); Eosinophils Absolute Auto 0.3 X10*3/uL (0.0-0.4); Hematocrit 30.1 % (37.0-47.0); Hemoglobin 9.9 g/dl (12.0-16.0); Imm Gran Abs Auto 0.02 X10*3/uL (0.00-0.03); Imm Gran Pct Auto 0.3 % (0.0-0.4); Lymphocytes Absolute Auto 1.8 X10*3/uL (1.2-4.9); Lymphocytes Percent Auto 22.3 % (20-40); Mean Corpuscular HGB Conc 32.9 g/dl (31.0-35.0); Mean Corpuscular Hemoglobin 31.7 pg (27.0-33.0); Mean Corpuscular Volume 96.5 fL (80.0-98.0); Mean Platelet Volume 10.3 fL (9.4-12.3); Monocytes Absolute Auto 0.8 X10*3/uL (0.1-1.2); Monocytes Percent Auto 9.4 % (2-11); Neutrophils Percent Auto 63.2 % (45-73); Platelet Count 231 X10*3/uL (160-400); Red Blood Count 3.12 X10*6/uL (4.20-5.50); Red Cell Distribution Width 13.3 % (11.0-16.0); White Blood Count 7.9 X10*3/uL (4.8-10.8)
[2023-05-18 15:45] LABS: Anion Gap 12 (12-20); Blood Urea Nitrogen 23 mg/dL (9-16); Calcium 9.6 mg/dL (8.4-10.2); Carbon Dioxide 21 mmol/L (22-29); Chloride 104 mmol/L (96-108); Estimated Glomerular Filt Rate 50; Glucose Random 107 mg/dL (60-115); Potassium 4.2 mmol/L (3.3-5.1); Sodium 133 mmol/L (135-145)
[2023-05-18 16:06] LABS: Appearance Urine Cloudy; Color Urine Yellow; Glucose Urine UA Negative (Negative); Leukocyte Esterase Urine Small (1+) (Negative); Nitrite Urine Negative (Negative); Specific Gravity - Urine 1.025 (1.005-1.025); UMIC TRIGGER UA YES; Urine Blood Negative (Negative); Urine Ketones Trace mg/dL (Negative); Urine Protein Negative (Neg-Trace)
[2023-05-18 16:15] LABS: Bacteria Urine Trace (None Seen); WBC Urine 0-5 /HPF (0-5)
== END 2023-05-18 13:46 | disposition home or self-care (01) ==
LOC: HO.LAB 13:45
PROVIDERS: PCP Internal Medicine; Visit Provider Internal Medicine Cardiovascular Disease
DX: R53.83 Other fatigue (principal); I50.32 Chronic diastolic (congestive) heart failure; I25.10 Atherosclerotic heart disease of native coronary artery without angina pectoris
CPT/HCPCS: 36415; 71046; 80048; 81001; 81003; 85025

== ENCOUNTER 2023-05-18 13:45 | Outpatient (AMB) | payer BC, SELFPAY ==
--- NOTE | 2023-05-18 13:58 | A.OFFVIS_ITS ---
Intake Vital Signs 05/18/23 13:59 Height 5 ft 5 in Weight 174 lb 9.698 oz BMI 29.1 BP 110/56 L Blood Pressure Location Lt brachial Position Sitting Pulse 61 Intake Visit Reasons: 4 month follow up Intake Note: 4 month follow up Allergist/Immunologist Physician Required: No Accompanied by: Daughter Allergies meperidine [From Demerol] Allergy (Severe, Verified 05/18/23 13:58) Nausea and Vomiting amoxicillin [AMOXICILLIN] Allergy (Intermediate, Verified 05/18/23 13:58) Rash cephalexin Allergy (Intermediate, Verified 05/18/23 13:58) Itching erythromycin base Allergy (Intermediate, Verified 05/18/23 13:58) Itching meloxicam Allergy (Intermediate, Verified 05/18/23 13:58) Abdominal Pain nitrofurantoin [From Macrobid] Allergy (Intermediate, Verified 05/18/23 13:58) Rash Penicillins Allergy (Intermediate, Verified 05/18/23 13:58) Rash Sulfa (Sulfonamide Antibiotics) [SULFA(SULFONAMIDE ANTIBIOTICS)] Allergy (Intermediate, Verified 05/18/23 13:58) Rash tramadol Allergy (Intermediate, Verified 05/18/23 13:58) Nausea and Vomiting codeine [CODEINE] Adverse Reaction (Intermediate, Verified 05/18/23 13:58) Nausea Medication List - Last Reconciled 05/18/23 by Yousif Palacios MD acetaminophen 1,000 mg PO .twice a day acetaminophen (Tylenol Extra Strength) 1,000 mg PO Q6H PRN alendronate 70 mg PO QWEEK amitriptyline 10 mg PO BEDTIME ascorbic acid (vitamin C) ER (Vitamin C With Vanessa Hips) 1,000 mg PO Q12H aspirin 81 mg PO DAILY atorvastatin 80 mg PO DAILY 90 days blood pressure monitor As directed calcium carbonate 600 mg PO DAILY@1700 cholecalciferol (vitamin D3) 25 mcg PO DAILY cod liver oil 1 cap PO DAILY cyanocobalamin (vitamin B-12) 1,000 mcg PO DAILY doxycycline hyclate 100 mg PO BID ferrous sulfate 325 mg PO DAILY fexofenadine 180 mg PO BEDTIME Flovent HFA 220 mcg/actuation (fluticasone propionate) 2 puffs PO BID NS lysine 1,000 mg PO DAILY metoprolol tartrate 25 mg PO BID nifedipine ER 30 mg PO DAILY omeprazole 20 mg PO DAILY@0630 pyridoxine (vitamin B6) 100 mg PO DAILY vit C,E,Zn,Jd--jhr-zeax 250-2.5-0.5 mg caps PO BID vit C-vit [id number] 2 caps PO DAILY vitamin E succinate 400 units PO DAILY HPI HPI Comments History of Present Illness Details 87-year-old female here for follow-up. She had severe aortic stenosis as well as multivessel disease. 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 She has severe ramus intermedius stenosis which was treated with drug-eluting stent. There is some error in the cardiac catheterization report showing that this is bare metal stent but in fact she had a drug-eluting stent. After that she was taken for transcatheter aortic valve replacement by Dr. Zelaya. She has been doing well since then. She has no chest pain or shortness of breath. 05/18/2023: She returns for follow-up. She is accompanied by her daughter. She is saying that she is not feeling well today. Very fatigued and tired suddenly. Her appetite was okay and she ate a breakfast. She has been experiencing off and on lower abdominal pain. No cough or phlegm production currently. No fevers reported by her. No bleeding concerns. Taking medications regularly. 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) S/P cardiac catheterization History of hand surgery History of heart artery stent History of laminectomy History of kyphoplasty History of cataract surgery History of D&C Family History Father Hypertension Mother Thyroid cancer Sister Breast cancer Social History Housing: House Alcohol intake: never Patient Tobacco Use Status: Never used Tobacco e-Cigarette/Vaping Use: Never Used Second Hand Smoke Exposure: No Advance Directives Date on File: 02/06/21 service: No Current occupational status: retired Cognitive needs: Yes (walker/cane) Hearing needs: No Vision needs: Yes (glasses) Review of Systems Const Denies weakness ENT Denies dizziness Card Denies chest pain, Denies chest pain with activity, Denies syncope, Denies rapid heart rate, Denies pedal edema, Denies edema, Denies leg edema, Denies lightheadedness, Denies palpitations, Denies dyspnea, Denies dyspnea on exertion and Denies orthopnea Resp Denies cough, Denies dyspnea and Denies dyspnea on exertion GI Denies hematochezia and Denies change in stool character Musc Denies abnormal gait, Denies muscle cramps, Denies muscle weakness, Denies numbness, Denies radiating pain into limb and Denies tingling Neuro Denies abnormal gait, Denies dizziness, Denies syncope, Denies numbness, Denies tingling and Denies weakness Endo Denies palpitations Physical Exam Vital Signs: Last Vital Signs Pulse 61 05/18/23 13:59 BP 110/56 L 05/18/23 13:59 BMI result Body Mass Index 29.1 GENERAL APPEARANCE: Looks tired and fatigued. NECK: no carotid bruit, no jugular venous distention. SKIN: no suspicious lesions, warm and dry. HEART: systolic murmur, regular rate and rhythm. LUNGS: Right basilar crackles. ABDOMEN: soft, nontender. EXTREMITIES: no edema. PERIPHERAL PULSES: equal. NEUROLOGIC: No gross deficits, AAO X 3 Assessment & Plan Assessment & Plan (1) Fatigue: Code(s): R53.83 - Other fatigue (2) Chronic diastolic heart failure: Code(s): I50.32 - Chronic diastolic (congestive) heart failure (3) Coronary artery disease: Code(s): I25.10 - Atherosclerotic heart disease of [place] coronary artery without angina pectoris Plan Pleasant 87 year female who is here for follow-up. She has known history of coronary disease with previous PCI. She also had severe aortic valve stenosis underwent transcatheter aortic valve replacement. She did well after that. On follow-up today she is complaining of some fatigue and tiredness. She has crackles in the right base. I am going to get an urgent chest x-ray for her. She also has abdominal discomfort and previously had urinary tract infections. We will check urinalysis with reflex culture. I will also repeat some blood workup to make sure she does not have any evidence for infection or anemia. I will review the lab work and advised her about any antibiotics if required. Cardiovascular point of view, she is stable. Thank you for allowing me to participate in the care of your patient. Please feel free to contact me if you have any questions. Orders: Orders XR chest 2V Today R53.83 - Other fatigue UA and rflx microscopic Today R53.83 - Other fatigue Complete Blood Count Auto Diff Today R53.83 - Other fatigue Basic Metabolic Panel Today R53.83 - Other fatigue Medications: Changed From amitriptyline 10 mg PO BEDTIME 90 tabs 1RF To amitriptyline 10 mg PO BEDTIME From alendronate 70 mg PO QWEEK 12 tabs 1RF To alendronate 70 mg PO QWEEK From nifedipine ER 30 mg PO DAILY 90 tabs 2RF To nifedipine ER 30 mg PO DAILY Discontinued doxycycline hyclate Discontinued Reason: None 100 mg PO BID 10 caps 0RF Coding Level of Care Code Est Pt Level 4 (70481) Diagnoses Fatigue R53.83 Chronic diastolic heart failure I50.32 Coronary artery disease I25.10
[2023-05-18 13:59] VITALS: BP 110/56; PULSE 61; BMI 29.1
== END 2023-05-18 14:33 | disposition home or self-care (01) ==
PROVIDERS: PCP Internal Medicine; Visit Provider Internal Medicine Cardiovascular Disease
DX: R53.83 Other fatigue (principal); I50.32 Chronic diastolic (congestive) heart failure; I25.10 Atherosclerotic heart disease of native coronary artery without angina pectoris
CPT/HCPCS: 99214

== ENCOUNTER 2023-05-21 15:07 | Outpatient (AMB) | payer BC, SELFPAY ==
--- NOTE | 2023-05-21 15:21 | MHC.PC.OV ---
Vital Signs 05/21/23 15:22 Height 5 ft 5 in Weight 173 lb 6 oz BMI 28.8 BP 122/60 Blood Pressure Location Lt brachial Position Sitting Pulse 63 Pulse Source Pulse Oximeter Pulse Oximetry (%) 98 Oxygen Delivery Method Room Air Intake Visit Reasons: f/u DMII Intake Note: Patient is here to follow up on Chronic right shoulder pain, Dementia, HTN, Asthma. Tariff Counsel Required: No Curator [employer]: Present Accompanied by: Daughter Allergies meperidine [From Demerol] Allergy (Severe, Verified 05/22/23 13:19) Nausea and Vomiting amoxicillin [AMOXICILLIN] Allergy (Intermediate, Verified 05/22/23 13:19) Rash cephalexin Allergy (Intermediate, Verified 05/22/23 13:19) Itching erythromycin base Allergy (Intermediate, Verified 05/22/23 13:19) Itching meloxicam Allergy (Intermediate, Verified 05/22/23 13:19) Abdominal Pain nitrofurantoin [From Macrobid] Allergy (Intermediate, Verified 05/22/23 13:19) Rash Penicillins Allergy (Intermediate, Verified 05/22/23 13:19) Rash Sulfa (Sulfonamide Antibiotics) [SULFA(SULFONAMIDE ANTIBIOTICS)] Allergy (Intermediate, Verified 05/22/23 13:19) Rash tramadol Allergy (Intermediate, Verified 05/22/23 13:19) Nausea and Vomiting codeine [CODEINE] Adverse Reaction (Intermediate, Verified 05/22/23 13:19) Nausea Medication List - Last Reconciled 05/22/23 by Michael Shepard MD acetaminophen 1,000 mg PO .twice a day acetaminophen (Tylenol Extra Strength) 1,000 mg PO Q6H PRN alendronate 70 mg PO QWEEK amitriptyline 10 mg PO BEDTIME ascorbic acid (vitamin C) ER (Vitamin C With Vanessa Hips) 1,000 mg PO Q12H aspirin 81 mg PO DAILY atorvastatin 80 mg PO DAILY 90 days blood pressure monitor As directed calcium carbonate 600 mg PO DAILY@1700 cholecalciferol (vitamin D3) 25 mcg PO DAILY ciprofloxacin HCl 500 mg PO BID cod liver oil 1 cap PO DAILY cyanocobalamin (vitamin B-12) 1,000 mcg PO DAILY ferrous sulfate 325 mg PO DAILY fexofenadine 180 mg PO BEDTIME Flovent HFA 220 mcg/actuation (fluticasone propionate) 2 puffs PO BID NS lysine 1,000 mg PO DAILY metoprolol tartrate 25 mg PO BID nifedipine ER 30 mg PO DAILY omeprazole 20 mg PO DAILY@0630 pyridoxine (vitamin B6) 100 mg PO DAILY vit C,E,Zn,Lx--yrz-zeax 250-2.5-0.5 mg caps PO BID vit C-vit S-wxqdkp-sduumcze 2 caps PO DAILY vitamin E succinate 400 units PO DAILY Tobacco use date assessed: 05/21/23 Fall risk assessment: No Falls in past year Last assessed Fall Risk: 05/21/23 Dental Screening Dental Screen Date: 05/21/23 Did you have a dental visit in the last 12 months?: Yes Did you have a dental problem in the last 6 months where you did not have access to dental care?: No Was dental information given to patient?: Patient has dentist HPI f/u DMII HPI Details 87-year-old female presents to the office for a sick visit. She is accompanied by her daughter. Patient continues to have severe pain in the right shoulder. She is scheduled for 2 procedures including a block or ablation at the pain clinic. The procedures scheduled for the coming week. She is wondering if she can take anything stronger than Tylenol for the pain. Patient is also feeling weak and tired. She was seen by her immigration case manager last week where ordered blood work and a urinalysis. She does not know the results of her blood work. She was treated with 3 days of antibiotics for presumed urinary tract infection. 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) S/P cardiac catheterization History of hand surgery History of heart artery stent History of laminectomy History of kyphoplasty History of cataract surgery History of D&C Family History Father Hypertension Mother Thyroid cancer Sister Breast cancer Social History Housing: House Alcohol intake: never Patient Tobacco Use Status: Never used Tobacco e-Cigarette/Vaping Use: Never Used Second Hand Smoke Exposure: No Advance Directives Date on File: 02/06/21 service: No Current occupational status: retired Cognitive needs: Yes (walker/cane) Hearing needs: Yes (hearing aide) Vision needs: Yes (glasses) Questionnaire Thrive Questionnaire Date Thrive assessed: 02/12/23 BRUNO-7 AMB Questionnaire BRUNO-7 Date BRUNO - 7 assessed: 10/13/22 Source: Developed by Drs. Hossein Elizalde, Olinda Clark, Zak Lechuga and colleagues, with an educational yemi from [employer] [place]. Physical exam (Primary Care) Vital Signs: Last Vital Signs Pulse 63 05/21/23 15:22 BP 122/60 05/21/23 15:22 Pulse Ox 98 05/21/23 15:22 Oxygen Delivery Method Room Air 05/21/23 15:22 BMI result Body Mass Index 28.8 Tobacco/Smoking Status: Tobacco use Status Tobacco use date assessed 05/21/23 05/21/23 15:29 Patient Tobacco Use Status Never used Tobacco 05/21/23 15:29 e-Cigarette/Vaping Use Never Used 05/21/23 15:29 Thrive Assessment: Date of Thrive Assessment Date Thrive assessed 02/12/23 05/21/23 15:29 Const General: cooperative and healthy appearing Nutritional Appearance: well nourished Orientation/consciousness: patient oriented x3 Limitations: no limitations HENMT Head: Yes normal to inspection Eyes General: appearance normal, both eyes and all related structures Neck Neck: Yes normal visual inspection Chest Chest palpation & inspection: normal palpation of entire chest wall Resp Effort & Inspection: normal respiratory effort Cardio Other: Heart: Ejection systolic murmur best heard over the aortic area. Neuro General: patient oriented x3 Extrem Other: Right shoulder: Tenderness over the AC joint. Very limited range of motion. Limited testing done. Assessment and Plan Assessment & Plan (1) Fatigue: Code(s): R53.83 - Other fatigue Plan: Blood work done reviewed. Continues to show low hemoglobin area it has not changed from previous blood work. Reassurance. (2) Primary osteoarthritis, right shoulder: Code(s): M19.011 - Primary osteoarthritis, right shoulder Plan: Patient was advised against use of prescription nonsteroidals. She is on a blood thinner and the risk of bleeding would increase. Pain patches have been suggested in addition to the Tylenol she is taking. Coding Level of Care Code Est Pt Level 4 (68304) Diagnoses Fatigue R53.83 Primary osteoarthritis, right shoulder M19.011
[2023-05-21 15:22] VITALS: BP 122/60; PULSE 63; O2SAT 98; BMI 28.8
== END 2023-05-21 15:50 | disposition home or self-care (01) ==
PROVIDERS: PCP Internal Medicine; Visit Provider Internal Medicine
DX: R53.83 Other fatigue (principal); M19.011 Primary osteoarthritis, right shoulder
CPT/HCPCS: 99214

== ENCOUNTER 2023-05-27 05:56 | Outpatient (REF) | payer BC, SELFPAY | END 2023-05-27 05:57 | disposition home or self-care (01) | LOC: CF 05:56 | PROVIDERS: Visit Provider Internal Medicine | DX: M47.816 Spondylosis without myelopathy or radiculopathy, lumbar region (principal); M25.511 Pain in right shoulder; G89.29 Other chronic pain | CPT/HCPCS: 64418; 64493; 64494 ==

== ENCOUNTER 2023-05-27 07:42 | Outpatient (AMB) | payer BC, SELFPAY ==
[2023-05-27 07:52] VITALS: BP 120/56; PULSE 61; RESP 14; O2SAT 96
--- NOTE | 2023-05-27 07:52 | MHC.OFFVIS ---
Intake Vital Signs 05/27/23 07:52 05/27/23 09:02 BP 120/56 L 130/58 L Blood Pressure Location Lt brachial Lt brachial Position Sitting Supine Respiration 14 14 Pulse 61 64 Pulse Source Pulse Oximeter Pulse Oximeter Pulse Oximetry (%) 96 95 Oxygen Delivery Method Room Air Room Air Intake Visit Reasons: Abilio Dx L3-L4-DR-L5 MBB Allergies meperidine [From Demerol] Allergy (Severe, Verified 05/27/23 07:53) Nausea and Vomiting amoxicillin [AMOXICILLIN] Allergy (Intermediate, Verified 05/27/23 07:53) Rash cephalexin Allergy (Intermediate, Verified 05/27/23 07:53) Itching erythromycin base Allergy (Intermediate, Verified 05/27/23 07:53) Itching meloxicam Allergy (Intermediate, Verified 05/27/23 07:53) Abdominal Pain nitrofurantoin [From Macrobid] Allergy (Intermediate, Verified 05/27/23 07:53) Rash Penicillins Allergy (Intermediate, Verified 05/27/23 07:53) Rash Sulfa (Sulfonamide Antibiotics) [SULFA(SULFONAMIDE ANTIBIOTICS)] Allergy (Intermediate, Verified 05/27/23 07:53) Rash tramadol Allergy (Intermediate, Verified 05/27/23 07:53) Nausea and Vomiting codeine [CODEINE] Adverse Reaction (Intermediate, Verified 05/27/23 07:53) Nausea HPI Abilio Dx L3-L4-DR-L5 MBB HPI Details Patient presents for scheduled procedure. Denies any recent cough, cold, infection, fever or other significant changes in medical history since last office visit. 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) S/P cardiac catheterization History of hand surgery History of heart artery stent History of laminectomy History of kyphoplasty History of cataract surgery History of D&C Family History Father Hypertension Mother Thyroid cancer Sister Breast cancer Social History Housing: House Alcohol intake: never Patient Tobacco Use Status: Never used Tobacco e-Cigarette/Vaping Use: Never Used Second Hand Smoke Exposure: No Advance Directives Date on File: 02/06/21 service: No Current occupational status: retired Cognitive needs: Yes (walker/cane) Hearing needs: Yes (hearing aide) Vision needs: Yes (glasses) Physical Exam Vital Signs: Last Vital Signs Pulse 64 05/27/23 09:02 Resp 14 05/27/23 09:02 BP 130/58 L 05/27/23 09:02 Pulse Ox 95 05/27/23 09:02 Oxygen Delivery Method Room Air 05/27/23 09:02 Office Procedures Lumbar/Sacral Facet Inj Details: Lumbar Medial Branch Block, Left L3, L4 medial branches and L5 Dorsal Ramus (2 levels, 3 nerves) After obtaining written consent, pre-procedure blood pressure and pulse were recorded and are in the nursing record for review. The patient was placed in a prone position. The respective lumbosacral area was prepped with chloraprep and draped in sterile fashion. The skin over the target medial branch nerves was anesthetized with 0.5% lidocaine. A 22 gauge 3.5 inch needle was inserted into the target medial branch nerve under fluoroscopic guidance. No paresthesias were elicited with needle placement and aspiration was negative for blood and CSF. Next, 0.2cc of omnipaque 180 was injected to verify positioning. Next 0.5 ml 0.5% ropivicaine was injected (0.5cc total per level). The identical procedure was performed at the remaining levels. The skin was cleansed and a sterile bandage was applied. Following the procedure the patient's vital signs were stable. The patient tolerated the procedure well and no complications were encountered. Following the procedure the patient's vital signs were stable. The patient was discharged home in good condition with post-procedural instructions. Time Out: Immediately prior to the procedure, the following was verbally confirmed that there is a signed consent form and that the correct patient, planned procedure, site and side are consistent with documentation and that necessary equipment and/or blood products are available prior to the start of the case. Complications: none EBL: <5 cc 12529 - second level, with Fluoroscopy Procedure code (CPT) selection complete Nerve Block Details: Diagnostic block of the articular branches of the suprascapular, axillary nerves, Right After obtaining written consent, pre-procedure blood pressure and heart rate were stable and recorded in the nursing record. The patient was placed prone on the table. The area overlying the peripheral nerves was widely prepped with chloraprep and allowed to dry. Using fluoroscopy, the appropriate landmarks were identified. The skin overlying the target was anesthetized with 0.5% lidocaine. A 25 gauge 3.5 inch spinal needle was advanced under fluoroscopic guidance just proximal to the lateral edge of the glenoid for suprascapular branches and lateral inferior edge of the greater tubercle for articular branches of the axillary nerves. Contrast injection with 0.2 cc of Omnipaque was negative for vascular uptake at each location. Aspiration was negative for heme and synovial fluid. 0.75 cc of ropivacaine 0.5% was injected around each targeted nerve. The needles were removed, skin cleansed and a sterile bandages were applied. The patient tolerated the procedure well and no complications were encountered. Following the procedure the patient's vital signs were stable. The patient was discharged home in good condition with post-procedural instructions. Time Out: Immediately prior to the procedure, the following was verbally confirmed that there is a signed consent form and that the correct patient, planned procedure, site and side are consistent with documentation and that necessary equipment and/or blood products are available prior to the start of the case. Complications: none EBL: <1 cc 68999 - Axillary 10758 - Suprascapular Procedure code (CPT) selection complete Results Reviewed Results Reviewed: 05/27/23 08:05 Lidocaine HCl 2 % MPF [Xylocaine 2 % MPF] 5 ml .ROUTE .STK-Kizoom ONE Assessment & Plan Assessment & Plan (1) Lumbar spondylosis: Code(s): M47.816 - Spondylosis without myelopathy or radiculopathy, lumbar region (2) Chronic right shoulder pain: Code(s): M25.511 - Pain in right shoulder; G89.29 - Other chronic pain Plan Patient is status post diagnostic shoulder genicular blocks as well as left lower lumbar MBBs. Patient tolerated procedure well and was discharged home in stable condition with discharge instructions. All questions were answered. We will follow-up via telephone or in clinic to assess response to therapy. A follow-up appointment was made during today's visit. Orders: Orders FL guidance in treatment room Today M47.816 - Spondylosis without myelopathy or radiculopathy, lumbar region Coding Level of Care Code Procedure Only Diagnoses Lumbar spondylosis M47.816 Chronic right shoulder pain M25.511; G89.29 CPT Codes Facet Injection-Lumbar/Sacral - CPT: 71983 - second level, with Fluoroscopy ([id number]) Nerve Block - Nerve Block 3: 00023 - Axillary ([id number]) Nerve Block - Nerve Block 4: 31401 - Suprascapular ([id number])
[2023-05-27 09:02] VITALS: BP 130/58; PULSE 64; RESP 14; O2SAT 95
== END 2023-05-27 09:07 | disposition home or self-care (01) ==
LOC: HO.PMCPRC 07:42
PROVIDERS: PCP Internal Medicine; Visit Provider Internal Medicine
DX: M47.816 Spondylosis without myelopathy or radiculopathy, lumbar region (principal); M25.511 Pain in right shoulder; G89.29 Other chronic pain
CPT/HCPCS: 64418; 64493; 64494; 77002

== ENCOUNTER 2023-05-29 10:37 | Outpatient (AMB) | payer BC, SELFPAY ==
--- NOTE | 2023-05-29 10:37 | A.OFFVIS_ITS ---
Intake Intake Visit Reasons: PO-s/p nate Dx L3-L4-DR-L5 MBB Allergies meperidine [From Demerol] Allergy (Severe, Verified 05/27/23 07:53) Nausea and Vomiting amoxicillin [AMOXICILLIN] Allergy (Intermediate, Verified 05/27/23 07:53) Rash cephalexin Allergy (Intermediate, Verified 05/27/23 07:53) Itching erythromycin base Allergy (Intermediate, Verified 05/27/23 07:53) Itching meloxicam Allergy (Intermediate, Verified 05/27/23 07:53) Abdominal Pain nitrofurantoin [From Macrobid] Allergy (Intermediate, Verified 05/27/23 07:53) Rash Penicillins Allergy (Intermediate, Verified 05/27/23 07:53) Rash Sulfa (Sulfonamide Antibiotics) [SULFA(SULFONAMIDE ANTIBIOTICS)] Allergy (Intermediate, Verified 05/27/23 07:53) Rash tramadol Allergy (Intermediate, Verified 05/27/23 07:53) Nausea and Vomiting codeine [CODEINE] Adverse Reaction (Intermediate, Verified 05/27/23 07:53) Nausea HPI PO-s/p nate Dx L3-L4-DR-L5 MBB HPI Details 87-year-old female who presents today vi a tele-visit for a status post bilateral diagnostic L3-L4-DR-L5 MBB. The patient reports 60% relief for shoulder pain and 50% relief for back pain following the procedure on Thursday. Her pain level improved from 7-8/10 to 3- 4/10 in intensity. She states that her shoulder pain has improved. She still has on-and-off back pain. Past procedures: 05/27/23: Lumbar Medial Branch Block, Le ft L3, L4 medial branches and L5 Dorsal Ramus (2 levels, 3 nerves): 50% relief for 1 day 03/11/23: Peripheral Nerve Stimulation T emporary Lead Placement, Ultrasound- Guided, Suprascapular Nerve, Right: % relief. 02/04/23: Bilateral Diagnostic L3-L4-DR L5 MBB-100% for 28 hours 02/04/23: Therapeutic left GTB steroid i njection-ongoing 80% pain relief 01/14/23: Diagnostic right suprascapular nerve block- 80% relief. 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) S/P cardiac catheterization History of hand surgery History of heart artery stent History of laminectomy History of kyphoplasty History of cataract surgery History of D&C Family History Father Hypertension Mother Thyroid cancer Sister Breast cancer Social History Housing: House Alcohol intake: never Patient Tobacco Use Status: Never used Tobacco e-Cigarette/Vaping Use: Never Used Second Hand Smoke Exposure: No Advance Directives Date on File: 02/06/21 service: No Current occupational status: retired Cognitive needs: Yes (walker/cane) Hearing needs: Yes (hearing aide) Vision needs: Yes (glasses) Review of Systems Const All systems reviewed & are unremarkable except as noted in HPI and below Results Reviewed Results Reviewed: No imaging is available for review. Assessment & Plan Assessment & Plan (1) Chronic right shoulder pain: Code(s): M25.511 - Pain in right shoulder; G89.29 - Other chronic pain (2) Lumbar spondylosis: Code(s): M47.816 - Spondylosis without myelopathy or radiculopathy, lumbar region Plan Will schedule her for Right RFA shoulder articular branches of axillary, suprascapular, lateral pectoral nerves. Discussed the risks and benefits of the procedure with the patient in detail. All questions were answered. The patient is on board with the plan. I also informed the patient that insurance approval is required. We will file a PA for approval and keep her updated. after the shoulder our phase done, we will potentially plan for lumbar medial branch radiofrequency ablation. Justification for interventional therapy: ? Patient with average pain > 6/10 ? Patient has exhausted conservative therapy . Patient reports 60% relief for 2 days to diagnostic injections Scribed for Dr. Garcia by Michael Natalie, medical appointment clerk, on 05/29/2023. I, Dr. Garcia, have personally reviewed and agree with the information entered by the aideibe. Telehealth Telehealth Location of provider rendering services: practice address Location of patient: address on file Patient Identification confirmed using: Name, : Yes Telehealth method: voice only Patient verbally consented to treatment: Yes Patient verbally consented to billing insurance company: Yes Patient informed of any privacy concerns related to visit: Yes Minutes spent on Phone/Video with Pt.: 3 Coding Level of Care Code Tele Est Pt Level 4 (71960) Diagnoses Chronic right shoulder pain M25.511; G89.29 Lumbar spondylosis M47.816
== END 2023-05-29 10:38 | disposition home or self-care (01) ==
LOC: HO.PMC 10:37
PROVIDERS: PCP Internal Medicine; Visit Provider Internal Medicine
DX: M25.511 Pain in right shoulder (principal); G89.29 Other chronic pain; M47.816 Spondylosis without myelopathy or radiculopathy, lumbar region
CPT/HCPCS: 99441

== ENCOUNTER → 2023-05-29 10:37 | Outpatient (BNVA) | payer BC, SELFPAY | PROVIDERS: PCP Internal Medicine; Visit Provider Internal Medicine ==

== ENCOUNTER 2023-07-08 15:01 | Outpatient (AMB) | payer BC, SELFPAY ==
--- NOTE | 2023-07-08 15:26 | MHC.OFFVIS ---
Intake Vital Signs 07/08/23 15:29 Height 5 ft 5 in Weight 171 lb BMI 28.5 BP 120/58 L Blood Pressure Location Lt brachial Position Sitting Pulse 72 Pulse Source Pulse Oximeter Pulse Oximetry (%) 99 Oxygen Delivery Method Room Air Intake Visit Reasons: COPD Intake Note: pt is here for follow up and states her breathing is okay, clears the throat often, stairs are difficult. please look at chest x-ray that was done in April. 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 Required: No Allergies meperidine [From Demerol] Allergy (Severe, Verified 07/08/23 16:01) Nausea and Vomiting amoxicillin [AMOXICILLIN] Allergy (Intermediate, Verified 07/08/23 16:01) Rash cephalexin Allergy (Intermediate, Verified 07/08/23 16:01) Itching erythromycin base Allergy (Intermediate, Verified 07/08/23 16:01) Itching meloxicam Allergy (Intermediate, Verified 07/08/23 16:01) Abdominal Pain nitrofurantoin [From Macrobid] Allergy (Intermediate, Verified 07/08/23 16:01) Rash Penicillins Allergy (Intermediate, Verified 07/08/23 16:01) Rash Sulfa (Sulfonamide Antibiotics) [SULFA(SULFONAMIDE ANTIBIOTICS)] Allergy (Intermediate, Verified 07/08/23 16:01) Rash tramadol Allergy (Intermediate, Verified 07/08/23 16:01) Nausea and Vomiting codeine [CODEINE] Adverse Reaction (Intermediate, Verified 07/08/23 16:01) Nausea Do you need a note to return to daycare/school/sports/work: No HPI COPD HPI Details THIS 87 YEARS OLD FEMALE A LONG-TIME PATIENT OF [facility] NOW COMES FOR YEARLY FOLLOW-UP FOR HER BREATHING ISSUES. SHE HAS CHRONIC ALLERGIC RHINITIS AND ALSO AN ELEMENT OF BRONCHIAL ASTHMA. FAR BRONCHIAL ASTHMA IS CONCERNED THAT HAS REMAINED UNDER CONTROLLED WITH THE USE OF FLOVENT-220 2 PUFFS B.I.D.. SHE HAS NOT USE THE ALBUTEROL INHALER FOR QUITE A FEW MONTHS. SHE DOES GET SHORT OF BREATH ON WALKING AND ESPECIALLY WHEN SHE CLIMBS 1 FLIGHT OF STAIRS, AND THEN HAS TO REST. THIS IS DUE TO COMBINATION OF MULTIPLE MEDICAL ISSUES THAT SHE HAS, ESPECIALLY CHRONIC ANEMIA ( HER HEMOGLOBIN IS AROUND 9 G MOST OF THE TIME) , HER DAUGHTER IS ROWAN WITH HOME SHE LIVES, WANTED ME TO TALK TO HER ABOUT LOOKING INTO AN ASSISTED LIVING FACILITY, FOR HER SAFETY. OF COURSE SHE IS NOT KEEN TO DO THAT. 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) S/P cardiac catheterization History of hand surgery History of heart artery stent History of laminectomy History of kyphoplasty History of cataract surgery History of D&C Family History Father Hypertension Mother Thyroid cancer Sister Breast cancer Social History Housing: House Alcohol intake: never Patient Tobacco Use Status: Never used Tobacco e-Cigarette/Vaping Use: Never Used Second Hand Smoke Exposure: No Advance Directives Date on File: 02/06/21 service: No Current occupational status: retired Cognitive needs: Yes (walker/cane) Hearing needs: Yes (hearing aide) Vision needs: Yes (glasses) Review of Systems Const All systems reviewed & are unremarkable except as noted in HPI and below Eyes Reports no additional complaints ENT Reports nasal congestion (MILD OFF AND ON) Card Denies chest pain, Denies irregular heart rhythm, Denies leg edema and Reports dyspnea on exertion Resp Reports as per HPI and Reports dyspnea on exertion GI Reports heartburn (Controlled with med) Reports urinary incontinence Musc Reports back pain and Reports arthralgias (Shoulders and knees ) Skin/Breast Reports system reviewed and no additional complaints, except as documented Neuro Reports no additional complaints (Generally slow and weak) Psych Reports no additional complaints Physical Exam Vital Signs: Last Vital Signs Pulse 72 07/08/23 15:29 BP 120/58 L 07/08/23 15:29 Pulse Ox 99 07/08/23 15:29 Oxygen Delivery Method Room Air 07/08/23 15:29 BMI result Body Mass Index 28.5 Const Other: Chronically sick and pale looking, walks with walker. General: comfortable, no acute distress, alert and awake Orientation/consciousness: patient oriented x3 HEENT Head: Yes normal to inspection General nose exam: No nasal polyps present and No nasal discharge present Face and sinus: Yes sinuses nontender Mouth: oropharynx normal Throat: Yes posterior oropharynx normal Eyes General: appearance normal, both eyes and all related structures Neck Neck: Yes normal visual inspection, Yes no lymphadenopathy, Yes trachea midline and Yes no JVD Thyroid: Thyroid normal Chest Chest palpation & inspection: normal inspection of the chest, normal palpation of entire chest wall and no tenderness Resp Effort & Inspection: normal respiratory effort and no cough Auscultation: clear to auscultation bilaterally, no crackles and no wheezes Percussion: percussion normal Cardio Palpation: normal PMI Rate: regular rate Rhythm: regular rhythm Heart sounds: no gallops and no murmurs GI Palpation (GI): Soft to palpation, nontender, No hepatosplenomegaly present and no masses Auscultation: normal bowel sounds Back/Spine/Pelvis Thoracic/Lumbar Spine: thoracic and lumbar spine normal to inspection, thoraco-lumbar ROM limited and thoraco-lumbar spasm Skin General skin exam: no rashes or lesions noted and other (Multiple echymotic spots on the arms .) Neuro General: patient oriented x3, No gait normal (Slow secondary to degenerative arthritis of the spine and patient uses walk) and no focal motor deficits Cranial nerves: Yes CN's II-XII intact bilaterally Extrem General: Yes normal to inspection, Yes no calf tenderness and Yes edema (Mild pitting edema around the ankles) Psych Appearance: grossly normal and well kempt Speech and movement: Normal speech and movement present Assessment & Plan Assessment & Plan (1) Asthma: Comment: Chronic, bronchial asthma, moderate,, well controlled at this time. [place] :Continue Flovent -220 2 puffs b.i.d. and ProAir 2 puffs Q 4-6 hours p.r.n. Code(s): J45.909 - Unspecified asthma, uncomplicated Qualifiers: Asthma severity: mild Asthma persistence: unspecified Asthma complication type: uncomplicated Qualified Code(s): J45.909 - Unspecified asthma, uncomplicated (2) Allergic rhinitis: Comment: Chronic , well controlled . Does not need active Meds . But may use fexofenadine 180 mg once a day p.r.n.. SHE IS NOT ON IMMUNOTHERAPY ANYMORE. Code(s): J30.9 - Allergic rhinitis, unspecified (3) Pulmonary hypertension: Comment: SECONDARY TO CARDIAC VAVULAR DISEASE, AND CHRONIC BRONCHIAL ASTHMA. STABLE. Code(s): I27.20 - Pulmonary hypertension, unspecified Plan: I DID TALK TO HER, AND GAVE HER FRIENDLY ADVICE , THAT SHE SHOULD LOOK AROUND FOR AN ASSISTED LIVING PLACE, MAY BE AT LEAST PUT HER NAME ON THE WAITING LIST. SHE SAID SHE WILL DO THAT. Coding Level of Care Code Est Pt Level 3 (24984) Diagnoses Mild asthma without complication, unspecified whether persistent J45.909 Asthma severity: mild Asthma persistence: unspecified Asthma complication type: uncomplicated Allergic rhinitis J30.9 Pulmonary hypertension I27.20
[2023-07-08 15:29] VITALS: BP 120/58; PULSE 72; O2SAT 99; BMI 28.5
== END 2023-07-08 16:17 | disposition home or self-care (01) ==
PROVIDERS: PCP Internal Medicine; Visit Provider Internal Medicine
DX: J45.909 Unspecified asthma, uncomplicated (principal); J30.9 Allergic rhinitis, unspecified; I27.20 Pulmonary hypertension, unspecified
CPT/HCPCS: 99213

== ENCOUNTER → 2023-07-08 15:01 | Outpatient (BNVA) | payer BC, SELFPAY | PROVIDERS: PCP Internal Medicine; Visit Provider Internal Medicine ==

== ENCOUNTER 2023-07-15 12:53 | Day surgery (SDC) | payer BC, SELFPAY ==
--- NOTE | ~2023-07-15 | FL_ITS ---
EXAMINATION: XR FLUOROSCOPY WITH IMAGES CLINICAL INFORMATION: RFA, right shoulder. COMPARISON: None available. TECHNIQUE: Fluoroscopy Supervised By: Dr. Sony Garcia. Fluoroscopy Time: 0.6 minutes. Cumulative Dose: 8.20 mGy. DAP: 1.02 Gycm2. Images: 4. FINDINGS: First 3 images demonstrate probes or leads projecting over the superior glenoid and greater tuberosity of the right shoulder.Last image demonstrates a probe or lead projecting inferior to the coracoid process of the right shoulder. FL/FL guidance in OR IMPRESSION: Fluoroscopy guidance for pain management procedure
[2023-07-15 13:08] VITALS: BMI 28.1
[2023-07-15 13:25] VITALS: BP 121/52; PULSE 55; RESP 18; TEMP 36.6; O2SAT 100
[2023-07-15 15:45] VITALS: BP 121/57; PULSE 64; RESP 18; TEMP 37.4; O2SAT 100
[2023-07-15 16:00] VITALS: BP 139/62; PULSE 62; RESP 18; TEMP 37.4; O2SAT 98
--- NOTE | 2023-07-15 16:51 | MHC.SHP ---
Pre-Procedural Eval Section A Date of Service: 07/15/23 The patient is an INPATIENT: No Changes since office visit: Yes Patient answered all questions The History & Physical has been completed within 30 days and I have reviewed it.: No Section B Chief Complaint: Pain in right shoulder Relevant Family History (Specify if Yes): No Relevant Social History: None Present Medications: see Short Stay Collaborative assessment Medical History: No relevant PMH History of Previous Operations: No relevant previous surgery Allergies: Allergies Allergy/AdvReac Type Severity Reaction Status Date / Time meperidine [From Demerol] Allergy Severe Nausea and Verified 07/15/23 13:05 Vomiting amoxicillin [AMOXICILLIN] Allergy Intermediate Rash Verified 07/15/23 13:05 cephalexin Allergy Intermediate Itching Verified 07/15/23 13:05 erythromycin base Allergy Intermediate Itching Verified 07/15/23 13:05 meloxicam Allergy Intermediate Abdominal Verified 07/15/23 13:05 Pain nitrofurantoin Allergy Intermediate Rash Verified 07/15/23 13:05 [From Macrobid] Penicillins Allergy Intermediate Rash Verified 07/15/23 13:05 Sulfa (Sulfonamide Allergy Intermediate Rash Verified 07/15/23 13:05 Antibiotics) [SULFA(SULFONAMIDE ANTIBIOTICS)] tramadol Allergy Intermediate Nausea and Verified 07/15/23 13:05 Vomiting codeine [CODEINE] AdvReac Intermediate Nausea Verified 07/15/23 13:05 Review of Systems Sugical H&P ROS: Negative: Constitution, Cardiovascular and Respiratory Exam Surgical H&P Exam: Normal: HEENT, Normal: Heart and Normal: Lungs Plan Diagnosis/Plan: Unchanged I have reviewed the history and physical and performed a pertinent physical examination on my patient. No changes have occurred unless specified. Time Spent With Patient Time: Total time managing care of this patient today ____ minutes.
--- NOTE | 2023-07-15 16:52 | PM.OP ---
Brief Operative Note Date of Service: 07/15/23 Pre-op diagnosis: Chronic right shoulder pain Post-op diagnosis: same Procedure: Radiofrequency lesioning of the articular branches of the right axillary, suprascapular and lateral pectoral nerves Implants: None Surgeon: Sony Garcia MD Anesthesia: local Was an Blood Bank Order Control Clerk used for this Procedure?: No Estimated blood loss (mL): 2 Pathology: none sent Condition: stable Disposition: same day
--- NOTE | 2023-07-15 16:53 | W.PM.OPN ---
Operative Note Operative Note Date of Service: 07/15/23 Narrative: Articular branches of the axillary, suprascapular and lateral pectoral nerve cooled RFL, Right - fluoroscopic guided After obtaining written consent, pre-procedure blood pressure and heart rate were stable and recorded in the nursing record. Standard monitors were applied and the patient was sedated.?The patient was first placed prone on the fluoroscopy table for branches of the suprascapular and the axillary nerves; after lesioning that, the patient was flipped supine for branches of the lateral pectoral nerve. The area overlying the peripheral nerves was widely prepped with chloraprep, allowed to dry and sterilely draped. Using fluoroscopy, the appropriate landmarks were identified. The skin overlying the target was anesthetized with 0.5% lidocaine. An 18 gauge 50 mm radiofrequency needle was advanced under fluoroscopic guidance to the appropriate landmark of each peripheral nerve.?The lateral pectoral branches were isolated at the midportion of the coracoid process in the supine position. The suprascapular branches were isolated just medial to the glenoid at the midpoint of the glenoid in the prone position.?The axillary branches were isolated at the lateral edge of the greater humeral tubercle in the prone position. Verification was made using bony contact. Aspiration was negative for heme and synovial fluid. Impedences were verified under 600 ohms. Motor testing (2 Hz) confirmed needle placement at each site within the appropriate voltage thresholds.?The probes were adjusted to minimize motor stimulation prior to the radiofrequency lesioning.?Each site was injected with 1 ml 2% preservative-free lidocaine. Radiofrequency lesioning was performed for 105 seconds at 80 deg Celcius tissue temperature. A 4 mm active tip was used with a corresponding reduction in RFL time to achieve adequate lesion size.?The needles were removed, skin cleansed and a sterile bandage was applied. The patient tolerated the procedure well and no complications were encountered. Following the procedure, the patient was flipped supine and brought to the PACU to recover from the sedating agents where his vital signs were stable. The patient was discharged home in good condition with post-procedural instructions. Time Out: Immediately prior to the procedure, the following was verbally confirmed that there is a signed consent form and that the correct patient, planned procedure, site and side are consistent with documentation and that necessary equipment and/or blood products are available prior to the start of the case. Complications: none EBL: <5 cc
== END 2023-07-15 16:15 | disposition home or self-care (01) ==
PROVIDERS: PCP Internal Medicine; Visit Provider Internal Medicine
PROC: (CPT 64640; principal; 2023-07-15 14:10)
DX: M25.511 Pain in right shoulder (principal); G89.29 Other chronic pain; M15.9 Polyosteoarthritis, unspecified; M47.816 Spondylosis without myelopathy or radiculopathy, lumbar region; M81.0 Age-related osteoporosis without current pathological fracture; I25.10 Atherosclerotic heart disease of native coronary artery without angina pectoris; I10 Essential (primary) hypertension; Z95.5 Presence of coronary angioplasty implant and graft; I25.2 Old myocardial infarction; Z95.2 Presence of prosthetic heart valve; J45.909 Unspecified asthma, uncomplicated; Z85.3 Personal history of malignant neoplasm of breast; Z88.0 Allergy status to penicillin; Z88.1 Allergy status to other antibiotic agents; Z88.2 Allergy status to sulfonamides; Z98.890 Other specified postprocedural states
CPT/HCPCS: 64640 ×3; J2795

== ENCOUNTER → 2023-07-15 12:53 | Outpatient (BNV) | payer BC, SELFPAY | PROVIDERS: PCP Internal Medicine; Visit Provider Internal Medicine | DX: M25.511 Pain in right shoulder (principal) | CPT/HCPCS: 64640; 77002 ==

== ENCOUNTER 2023-08-07 18:44 | Inpatient (IN) | payer BC, SELFPAY ==
--- NOTE | ~2023-08-07 | XR_ITS ---
EXAMINATION: XR SHOULDER, RIGHT CLINICAL INFORMATION: Reason for Exam pain after past fall COMPARISON: None TECHNIQUE: Four views of the shoulder. FINDINGS: No acute fracture or dislocation. Advanced degenerative changes of the shoulder with complete loss of glenohumeral joint space. Soft tissues are unremarkable. XR/XR shoulder RT min 2V IMPRESSION: 1. No acute fracture or dislocation. 2. Advanced degenerative changes of the shoulder with complete loss of glenohumeral joint space.
--- NOTE | ~2023-08-07 | CT_ITS ---
EXAMINATION: CT ABDOMEN AND PELVIS WITH CONTRAST CLINICAL INFORMATION: Mid and lower back pain COMPARISON: 02/06/2022 and 04/16/2018 TECHNIQUE: Multidetector volumetric images were obtained from the superior aspect of the liver through the pubic symphysis following administration 85 mL of Omnipaque 350 intravenous contrast. Sagittal and coronal reformatted images were obtained on the technologist's workstation. Oral contrast: No This CT examination was performed using dose optimization techniques as appropriate, variously including the following: *Automated exposure control *Adjustment of mA and/or kV according to patient size (this includes techniques or standardized protocols for targeted exams where dose is matched to indication/reason for exam; i.e. extremities or head) *Use of iterative reconstruction technique DLP: 1238 mGy-cm FINDINGS: LUNG BASES: Mild interstitial lung abnormality. TAVR. LIVER, GALLBLADDER, AND BILIARY TREE: The liver is normal in size, shape, and attenuation. No focal hepatic lesion or biliary ductal dilatation is present. Once again, the gallbladder is distended to a similar extent as on the prior exam, with cholelithiasis. No pericholecystic edema. There is a tiny nonobstructive stone in the distal common bile duct. PANCREAS: Atrophic. There is a 1.2 cm cyst in the pancreatic tail. No pancreatic inflammation. SPLEEN: Unremarkable. ADRENAL GLANDS: Unremarkable. KIDNEYS AND URETERS: The kidneys are normal in size, shape, and attenuation. No hydronephrosis, hydroureter, or calculi seen. No perinephric stranding. BLADDER: Mild mucosal hyperemia. GASTROINTESTINAL TRACT: No intestinal obstruction or inflammation. Stool present throughout the nondistended colon. Normal appendix. ABDOMINAL WALL: No significant hernia is appreciated. LYMPH NODES: Normal. VASCULAR: Unremarkable. PELVIC VISCERA: There is a 3.6 cm calcified uterine fundal fibroid. Uterus and ovaries otherwise unremarkable. OSSEOUS STRUCTURES: No acute or suspicious osseous abnormalities. Previous kyphoplasty at L1. Severe thoracolumbar spondylosis and associated scoliosis. CT/CT abdomen pelvis w IV con IMPRESSION: * Mild mucosal hyperemia of the urinary bladder could represent cystitis. Please correlate with urinalysis. * Cholelithiasis and gallbladder distention similar to prior. There is a tiny nonobstructive stone in the distal common bile duct, without associated dilatation. * Incidental 1.2 cm cyst in the pancreatic tail. Recommend follow-up MRI/MRCP in one year, if clinically indicated (given patient age). * Mild constipation. .
[2023-08-07 19:20] VITALS: BP 117/45; PULSE 91; RESP 18; TEMP 36.8; O2SAT 100; BMI 27.5
--- NOTE | 2023-08-07 19:23 | ED.GENADULT ---
HPI - General Adult General Chief complaint: Urogenital-Female Stated complaint: Abd pain sent by urgent care Time Seen by Provider: 08/07/23 22:41 Source: patient and family (daughter) Mode of arrival: wheelchair Limitations: no limitations History of Present Illness HPI narrative: 88-year-old female who has a history of aortic valve replacement, diastolic heart failure, mild dementia, anemia, asthma, presents for evaluation of generalized weakness and lower abdominal pain. According to the patient and her daughter, on August 05. It initially began with upper abdominal pain and nausea and vomiting. That has since resolved. She is now complaining of diffuse lower abdominal pain. She did express times of discomfort with urination. She went to [facility] at that time, had labs performed but ultimately left without being seen due to a long wait. Patient continued to not feel well, went to urgent care today and was sent to the hospital for further evaluation and management. Patient states she has had decreased activity, decreased p.o. intake and continues to report a generalized sense of malaise as well as lower abdominal pain. She reports it is dull, achy and diffuse. She denies any diarrhea. No constipation. She denies any trauma. Patient is typically ambulatory and lives in assisted living. Related Data Home Medications Medication Instructions Recorded Confirmed omeprazole 20 mg capsule,delayed 20 mg PO DAILY@0630 07/10/20 07/15/23 release lysine 1,000 mg tablet 1,000 mg PO DAILY 12/17/20 05/22/23 calcium carbonate 600 mg calcium 600 mg PO DAILY@1700 12/31/20 05/22/23 (1,500 mg) tablet cod liver oil 1 cap PO DAILY 12/31/20 05/22/23 ferrous sulfate 325 mg (65 mg 325 mg PO DAILY 12/31/20 07/15/23 iron) tablet fexofenadine 180 mg tablet 180 mg PO BEDTIME 12/31/20 05/22/23 vitamin E succinate 268 mg (400 400 unit PO DAILY 12/31/20 05/22/23 unit) tablet ascorbic acid (vitamin C) 1,000 mg 1,000 mg PO Q12H 02/06/21 05/22/23 tablet,extended release (Vitamin C With Vanessa Hips) cyanocobalamin (vitamin B-12) 1,000 mcg PO DAILY 02/06/21 05/22/23 1,000 mcg tablet pyridoxine (vitamin B6) 100 mg 100 mg PO DAILY 02/06/21 05/22/23 tablet vit C-vit U-honpxu-cjwlksaj capsule 2 cap PO DAILY 02/06/21 05/22/23 acetaminophen 500 mg tablet 1,000 mg PO .twice a day Pain, Mild 03/13/21 05/22/23 cholecalciferol (vitamin D3) 25 25 mcg PO DAILY 11/05/21 05/22/23 mcg (1,000 unit) capsule vit cap PO BID 11/12/22 05/22/23 C,E,zinc,Ht-qaglp-4-lutein-zeaxanthin 250 mg-2.5 mg-0.5 mg capsule acetaminophen 500 mg tablet 1,000 mg PO Q6H PRN 05/18/23 05/22/23 (Tylenol Extra Strength) nifedipine 30 mg tablet,extended 30 mg PO DAILY 05/18/23 07/15/23 release albuterol sulfate 90 mcg/actuation 2 puff inhalation Q6H PRN 07/08/23 07/15/23 aerosol inhaler (ProAir HFA) Bronchodilation Previous Rx's Medication Instructions Recorded blood pressure monitor #1 ea 07/15/21 atorvastatin 80 mg tablet 80 mg PO DAILY 90 days #90 tabs 10/06/22 aspirin 81 mg tablet,delayed 81 mg PO DAILY #90 tabs 01/02/23 release Flovent HFA 220 mcg/actuation 2 puff PO BID #12 ea 04/21/23 aerosol inhaler (fluticasone propionate) metoprolol tartrate 25 mg tablet 25 mg PO BID #180 tabs 04/21/23 lidocaine HCl 4 % topical cream 1 appl topical BID #120 grams 05/22/23 (Aspercreme (lidocaine HCl)) amitriptyline 10 mg tablet 10 mg PO BEDTIME #90 tabs 07/15/23 alendronate 70 mg tablet 70 mg PO QWEEK #12 tabs 07/29/23 Allergies Allergy/AdvReac Type Severity Reaction Status Date / Time meperidine [From Demerol] Allergy Severe Nausea and Verified 08/07/23 19:27 Vomiting amoxicillin [AMOXICILLIN] Allergy Intermediate Rash Verified 08/07/23 19:27 cephalexin Allergy Intermediate Itching Verified 08/07/23 19:27 erythromycin base Allergy Intermediate Itching Verified 08/07/23 19:27 meloxicam Allergy Intermediate Abdominal Verified 08/07/23 19:27 Pain nitrofurantoin Allergy Intermediate Rash Verified 08/07/23 19:27 [From Macrobid] Penicillins Allergy Intermediate Rash Verified 08/07/23 19:27 Sulfa (Sulfonamide Allergy Intermediate Rash Verified 08/07/23 19:27 Antibiotics) [SULFA(SULFONAMIDE ANTIBIOTICS)] tramadol Allergy Intermediate Nausea and Verified 08/07/23 19:27 Vomiting codeine [CODEINE] AdvReac Intermediate Nausea Verified 08/07/23 19:27 Review of Systems Constitutional: Constitutional: Denies chills, Denies fever(s) and Denies headache(s) ENT: Denies headache(s), Denies nasal congestion, Denies nasal discharge and Denies neck pain Cardiovascular: Cardiovascular: Denies chest pain, Denies palpitations, Denies dyspnea, Denies dyspnea on exertion and Denies orthopnea Respiratory: Respiratory: Denies cough, Denies dyspnea and Denies dyspnea on exertion Gastrointestinal: Gastrointestinal: Reports abdominal pain, Denies melena, Denies hematochezia, Denies diarrhea, Reports nausea and Reports vomiting Genitourinary: Genitourinary: Reports dysuria and Reports urinary urgency Musculoskeletal: Musculoskeletal: Denies back pain, Denies muscle weakness, Denies neck pain and Denies numbness Integumentary/Breasts: Skin/Breast: Denies rash Neurologic: Denies headache(s), Denies focal weakness and Denies numbness Psychiatric: Psychiatric: Denies depression Endocrine: Endocrine: Denies palpitations PMFSH Past Medical History Source: obtained from family Medical History Breast cancer Screening for breast cancer History of heart attack Atherosclerotic cardiovascular disease Precordial chest pain Chest pain Coronary artery disease Anemia Aortic stenosis, severe Primary osteoarthritis involving multiple joints Osteoporosis Acute laryngitis Benign essential HTN Asthma Allergic rhinitis Surgical History S/P TAVR (transcatheter aortic valve replacement) S/P TAVR (transcatheter aortic valve replacement) S/P cardiac catheterization History of hand surgery History of heart artery stent History of laminectomy History of kyphoplasty History of cataract surgery History of D&C Family History Family History Father Hypertension Mother Thyroid cancer Sister Breast cancer Social History Social History Housing: House Alcohol intake: never Patient Tobacco Use Status: Never used Tobacco e-Cigarette/Vaping Use: Never Used Second Hand Smoke Exposure: No Advance Directives: Yes Advance Directives on File: Yes Advance Directives Date on File: 02/06/21 service: No Current occupational status: retired Cognitive needs: Yes (walker/cane) Hearing needs: Yes (hearing aide) Vision needs: Yes (glasses) Physical Exam ED Vital Signs: Vital Signs - 24 hr 08/07/23 19:20 08/07/23 23:18 08/08/23 01:08 Temperature 98.2 F 98.2 F 98.3 F Pulse Rate 91 84 94 Respiratory Rate 18 17 17 Blood Pressure 117/45 L 124/88 155/64 H Pulse Oximetry 100 99 99 Oxygen Delivery Method Room Air Room Air Room Air BMI result Body Mass Index 27.5 Const General: alert, awake and Physically active HENMT Other: Mucous membranes dry Resp Auscultation: clear to auscultation bilaterally Cardio Rate: regular rate GI Other: Abdomen is soft. Mild diffuse lower abdominal tenderness. No rebound or guarding. No CVAT. No epigastric tenderness. Extrem Other: Trace pedal edema bilaterally Course Course Course Narrative: RME performed by Erin Roman PA-C. Patient is an 88 year old assigned female at presenting to the emergency department with abdominal pain and increased urinary frequency. Seen by Jin at urgent care who was concerned that the patient was jaundiced. Labs ordered. Patient placed back in the waiting room pending room availability and results. Reevaluation(s) Reevaluation #1: August 08, 2023, 12:05 a.m. difficulty obtaining IV access by nursing. Bedside ultrasound was utilized to place a 20. Gauge, 1.16 in IV in the right AC. Flushed without difficulty, RN notified. Reevaluation #2: August 08, 2023 patient resting comfortably at this time. Awaiting CT results. Time: 01:35 Reevaluation #3: CT results returned, confirming cystitis without other acute process. See report for full details. [place] text to Dr. Oscar for transfer of care. Time: 01:49 Medications Administered Discontinued Medications Generic Name Dose Route Start Last Admin Trade Name Román PRN Reason Stop Dose Admin Sodium Chloride 500 mls @ 500 mls/hr 08/07/23 23:00 08/08/23 00:48 Ns IV 08/07/23 23:59 Infused .Q1H ERICK Infusion Doxycycline Hyclate 100 mg/ 250 mls @ 166.67 mls/hr 08/07/23 23:00 08/08/23 01:42 Sodium Chloride IV 08/08/23 00:29 Infused ONCE ONE Infusion Medical Decision Making Medical Decision Making MDM Narrative: 88-year-old female who presents with a 3 day history of lower abdominal pain, episodes of nausea and feeling unwell. Check labs, UA, CT of the abdomen pelvis. Patient is hemodynamically stable at this time. She is afebrile. Concern for sepsis given the patient's slightly elevated white blood cell count, and source of infection likely urine. Given the patient's age and symptoms and duration and progressive nature, will check abdominal CT to ensure no other etiology, including colitis. Patient has multiple antibiotic allergies including penicillins and cephalosporins that causes itching. Will start doxycycline. Gentle IV fluids given the patient's CHF history. Differential Diagnosis Differential Diagnoses: The differential diagnosis associated with the presentation includes Sepsis UTI Colitis Bowel obstruction Dehydration Admission/Observation Consideration of admission/observation: Escalation of care including admission/observation considered Message to Dr. Oscar. Consult Healthcare Provider Management of the patient was discussed with: Hospitalist Lab Data [facility] Lab Attestation statement: I reviewed the patient's lab results. Patient presents with lab work from a [facility] from August 06, white count at that time was 9. 08/07/23 20:26 08/07/23 20:26 Labs: Lab Results 08/07/23 08/07/23 Range/Units 20:25 20:26 WBC 11.4 H (4.8-10.8) X10*3/uL RBC 2.89 L (4.20-5.50) X10*6/uL Hgb 9.1 L (12.0-16.0) g/dl Hct 27.4 L (37.0-47.0) % MCV 94.8 (80.0-98.0) fL MCH 31.5 (27.0-33.0) pg MCHC 33.2 (31.0-35.0) g/dl RDW 14.7 (11.0-16.0) % Plt Count 196 (160-400) X10*3/uL MPV 11.9 (9.4-12.3) fL Immature Gran % (Auto) 0.4 (0.0-0.4) % Neut % (Auto) 74.8 H (45-73) % Lymph % (Auto) 15.8 L (20-40) % Cochran % (Auto) 8.0 (2-11) % Eos % (Auto) 0.7 (0-4) % Baso % (Auto) 0.3 (0-2) % Lymph # (Auto) 1.8 (1.2-4.9) X10*3/uL Cochran # (Auto) 0.9 (0.1-1.2) X10*3/uL Eos # (Auto) 0.1 (0.0-0.4) X10*3/uL Baso # (Auto) 0.0 (0.0-0.2) X10*3/uL Abs Immat Gran (auto) 0.04 H (0.00-0.03) X10*3/uL Absolute Neuts (auto) 8.6 H (2.0-8.3) x10*3/uL Absolute Nucleated RBC 0.000 (0.0-0.012) X10*3/uL Nucleated RBC % (auto) 0.0 (0.0-0.2) /100WBC Smear Tech's Comments VERIFIED Sodium 134 L (135-145) mmol/L Potassium 4.5 (3.3-5.1) mmol/L Chloride 103 (96-108) mmol/L Carbon Dioxide 18 L (22-29) mmol/L Anion Gap 18 (12-20) BUN 25 H (9-16) mg/dL Creatinine 1.20 (0.5-1.4) mg/dL Estim Creat Clear Calc 33.4 Estimated GFR 42 Random Glucose 132 H (60-115) mg/dL Calcium 9.5 (8.4-10.2) mg/dL Magnesium 2.1 (1.6-2.6) mg/dL Total Bilirubin 0.7 (0.0-1.0) mg/dL AST 78 H (5-31) U/L ALT 53 H (0-31) U/L Alkaline Phosphatase 103 (39-117) U/L Total Protein 7.7 (6.5-8.0) g/dL Albumin 3.8 (3.5-5.0) g/dL Lipase 12 (8-78) U/L Urine Color Dark Yellow Urine Appearance Turbid Urine pH 5.5 (5.0-9.0) Ur Specific Tyner 1.025 (1.005-1.025) Urine Protein 100 (2+) H (Neg-Trace) mg/dL Urine Glucose (UA) Negative (Negative) mg/dL Urine Ketones Trace (Negative) mg/dL Urine Blood Moderate (2+) H (Negative) Urine Nitrite Positive H (Negative) Ur Leukocyte Esterase Large (3+) H (Negative) Urine RBC >20 H (0-2) /HPF Urine WBC >50 H (0-5) /HPF Ur Squamous Epith Cells 6-10 (0-2) /HPF Urine Bacteria 4+ (None Seen) Hyaline Casts 0-2 (0-2) /LPF Influenza Type A (PCR) NEGATIVE (Negative) Influenza Type B (PCR) NEGATIVE (Negative) RSV RNA Qual (PCR) NEGATIVE (Negative) SARS-CoV-2 RNA (RT-PCR) NEGATIVE (Negative) Independent Interpretation I performed an independent interpretation of an: EKG Radiology Impression Discussion of test interpretation with radiology: I have reviewed the radiologist's reading. Radiologist Impression: [place] [id number] CT Scan Report Signed Patient: Beena Davison MR#: [id number] : 1935 Acct:[id number] Age/Sex: 88 / F ADM Date: 08/07/23 Loc: .ED Attending Dr: Ordering Physician: Joo Paulino Date of Service: 08/08/23 Procedure(s): CT abdomen pelvis w IV con Accession Number(s): [id number] cc: Joo Paulino; Michael Shepard MD~ EXAMINATION: CT ABDOMEN AND PELVIS WITH CONTRAST CLINICAL INFORMATION: Mid and lower back pain COMPARISON: 02/06/2022 and 04/16/2018 TECHNIQUE: Multidetector volumetric images were obtained from the superior aspect of the liver through the pubic symphysis following administration 85 mL of Omnipaque 350 intravenous contrast. Sagittal and coronal reformatted images were obtained on the technologist's workstation. Oral contrast: No This CT examination was performed using dose optimization techniques as appropriate, variously including the following: *Automated exposure control *Adjustment of mA and/or kV according to patient size (this includes techniques or standardized protocols for targeted exams where dose is matched to indication/reason for exam; i.e. extremities or head) *Use of iterative reconstruction technique DLP: 1238 mGy-cm FINDINGS: LUNG BASES: Mild interstitial lung abnormality. TAVR. LIVER, GALLBLADDER, AND BILIARY TREE: The liver is normal in size, shape, and attenuation. No focal hepatic lesion or biliary ductal dilatation is present. Once again, the gallbladder is distended to a similar extent as on the prior exam, with cholelithiasis. No pericholecystic edema. There is a tiny nonobstructive stone in the distal common bile duct. PANCREAS: Atrophic. There is a 1.2 cm cyst in the pancreatic tail. No pancreatic inflammation. SPLEEN: Unremarkable. ADRENAL GLANDS: Unremarkable. KIDNEYS AND URETERS: The kidneys are normal in size, shape, and attenuation. No hydronephrosis, hydroureter, or calculi seen. No perinephric stranding. BLADDER: Mild mucosal hyperemia. GASTROINTESTINAL TRACT: No intestinal obstruction or inflammation. Stool present throughout the nondistended colon. Normal appendix. ABDOMINAL WALL: No significant hernia is appreciated. LYMPH NODES: Normal. VASCULAR: Unremarkable. PELVIC VISCERA: There is a 3.6 cm calcified uterine fundal fibroid. Uterus and ovaries otherwise unremarkable. OSSEOUS STRUCTURES: No acute or suspicious osseous abnormalities. Previous kyphoplasty at L1. Severe thoracolumbar spondylosis and associated scoliosis. CT/CT abdomen pelvis w IV con IMPRESSION: * Mild mucosal hyperemia of the urinary bladder could represent cystitis. Please correlate with urinalysis. * Cholelithiasis and gallbladder distention similar to prior. There is a tiny nonobstructive stone in the distal common bile duct, without associated dilatation. * Incidental 1.2 cm cyst in the pancreatic tail. Recommend follow-up MRI/MRCP in one year, if clinically indicated (given patient age). * Mild constipation. . Dictated By: Joe Deleon MD Signed By: <Electronically signed by Joe Deleon MD in OV> 08/08/23 0139 DD/ 0107 TD/TT: Commanding Officer Traffic Division: [place] Independent Historian Clinical information obtained from an independent historian. History obtained from or confirmed by: Other (daughter) External Record Review External record reviewed: Inpatient record Prescription Management I considered prescription management with: Antibiotic Discharge Plan Discharge Clinical Impression: Acute UTI, Weakness Patient Disposition: Admitted As Inpatient
--- NOTE | 2023-08-07 20:17 | PC.NURSE ---
Pt family notified this Rn that pt is declining , described as hand hurting and pt dozing off. histologist made aware.
[2023-08-07 20:35] LABS: Basophils Percent Auto 0.3 % (0-2); Eosinophils Absolute Auto 0.1 X10*3/uL (0.0-0.4); Eosinophils Percent Auto 0.7 % (0-4); Imm Gran Abs Auto 0.04 X10*3/uL (0.00-0.03); Monocytes Absolute Auto 0.9 X10*3/uL (0.1-1.2); PLT CLUMP 1; Red Cell Distribution Width 14.7 % (11.0-16.0); SCAN SMEAR FLAG 1
[2023-08-07 20:36] LABS: Appearance Urine Turbid; Color Urine Dark Yellow; Glucose Urine UA Negative (Negative); Leukocyte Esterase Urine Large (3+) (Negative); Nitrite Urine Positive (Negative); PH 5.5 (5.0-9.0); Specific Gravity - Urine 1.025 (1.005-1.025); UMIC TRIGGER UACC YES; Urine Blood Moderate (2+) (Negative); Urine Ketones Trace mg/dL (Negative); Urine Protein 100 (2+) mg/dL (Neg-Trace)
[2023-08-07 20:37] LABS: Hematocrit 27.4 % (37.0-47.0); Hemoglobin 9.1 g/dl (12.0-16.0); Imm Gran Pct Auto 0.4 % (0.0-0.4); Lymphocytes Absolute Auto 1.8 X10*3/uL (1.2-4.9); Lymphocytes Percent Auto 15.8 % (20-40); MANUAL DIFF FLAG SCAN; Mean Corpuscular HGB Conc 33.2 g/dl (31.0-35.0); Mean Corpuscular Hemoglobin 31.5 pg (27.0-33.0); Mean Corpuscular Volume 94.8 fL (80.0-98.0); Mean Platelet Volume 11.9 fL (9.4-12.3); Neutrophils Absolute Auto 8.6 x10*3/uL (2.0-8.3); Neutrophils Percent Auto 74.8 % (45-73); Red Blood Count 2.89 X10*6/uL (4.20-5.50)
[2023-08-07 20:41] LABS: Bacteria Urine 4+ (None Seen); Hyaline Casts Urine 0-2 /LPF (0-2); RBC Urine >20 /HPF (0-2); UACC Culture Trigger YES; WBC Urine >50 /HPF (0-5)
[2023-08-07 20:48] LABS: Alanine Aminotransferase 53 U/L (0-31); Albumin Level 3.8 g/dL (3.5-5.0); Alkaline Phosphatase 103 U/L (39-117); Anion Gap 18 (12-20); Aspartate Amino Transferase 78 U/L (5-31); Bilirubin Total 0.7 mg/dL (0.0-1.0); Blood Urea Nitrogen 25 mg/dL (9-16); Calcium 9.5 mg/dL (8.4-10.2); Carbon Dioxide 18 mmol/L (22-29); Chloride 103 mmol/L (96-108); Creatinine Clr Calc Pharmacy 33.4; Estimated Glomerular Filt Rate 42; Glucose Random 132 mg/dL (60-115); Magnesium 2.1 mg/dL (1.6-2.6); Potassium 4.5 mmol/L (3.3-5.1); Sodium 134 mmol/L (135-145); Total Protein 7.7 g/dL (6.5-8.0)
[2023-08-07 20:55] LABS: White Blood Count 11.4 X10*3/uL (4.8-10.8)
[2023-08-07 21:00] LABS: Platelet Count 196 X10*3/uL (160-400)
[2023-08-07 21:01] LABS: SLIDE REVIEW VERIFIED
[2023-08-07 21:09] LABS: Influenza A PCR NEGATIVE (Negative); Influenza B PCR NEGATIVE (Negative); Resp Syncy Virus RNA Qual PCR NEGATIVE (Negative); SARS COV2 PCR INHOUSE NEGATIVE (Negative)
[2023-08-07 23:18] VITALS: BP 124/88; PULSE 84; RESP 17; TEMP 36.8; O2SAT 99
[2023-08-07 23:18] LABS: Lipase 12 U/L (8-78)
--- NOTE | 2023-08-07 23:19 | PC.NURSE ---
cell- to call for updates
[2023-08-07] MEDS: 0.9 % Sodium Chloride 500 ML IV (23:46)
[2023-08-07] MEDS: Doxycycline Hyclate 100 MG in 0.9 % Sodium Chloride 250 ML 166.67 MG IV (23:52)
[2023-08-08 01:08] VITALS: BP 155/64; PULSE 94; RESP 17; TEMP 36.8; O2SAT 99
--- NOTE | 2023-08-08 02:49 | P.HPHOSP_ITS ---
History of Present Illness Date of Service: 08/08/23 Attending physician on admission: Nba Ocsar Chief Complaint: Generalized weakness, abdominal pain, nausea & vomiting 88 year-old female with a past medical history of aortic valve replacement, diastolic heart failure, mild dementia, brast cancer, anemia, CAD, osteoporosis, asthma, s/p TAVR, and macular degenration who presented to the emergency room for evaluation of generalized weakness and lower abdominal pain with associated nausea and vomiting for several days now. This is associated with decreased oral intake, decreased activity level & generalized sense of malaise. The pain was initially in the upper abdomen but is now localized in the lower abdomen and is associated with pain with urination. She recently visited [facility] and had labs performed but ultimately left without being seen due to a long wait. She unfortunately continued to feel unwell and so went to an urgent care today from where she was sent to the hospital for further evaluation and management. She denies any associated diarrhea, constipation or trauma. She currently resides in an assisted living facility & is ambulatory at baseline. Initial blood work done in the emergency room was significant for a leucocytosis of 11.4 k/mm3, anemia with a hemoglobin of 9.1 g/dl. Urinalysis was positive for 3+ leukocyte esterase and >50 WBC/hpf with 4+ bacteria. An abdominal CT scan done showed mild mucosal hyperemia of the urinary bladder concerning for cystitis. A diagnosis of UTI was made and she was started on IV Doxycycline and admission requested. Review of Systems 2 Review of Systems: Yes all other systems are reviewed and are negative [facility] Medical History Breast cancer Screening for breast cancer History of heart attack Atherosclerotic cardiovascular disease Precordial chest pain Chest pain Coronary artery disease Anemia Aortic stenosis, severe Primary osteoarthritis involving multiple joints Osteoporosis Acute laryngitis Benign essential HTN Asthma Allergic rhinitis Family History Father Hypertension Mother Thyroid cancer Sister Breast cancer Surgical History S/P TAVR (transcatheter aortic valve replacement) S/P TAVR (transcatheter aortic valve replacement) S/P cardiac catheterization History of hand surgery History of heart artery stent History of laminectomy History of kyphoplasty History of cataract surgery History of D&C Social History Housing: House Alcohol intake: never Patient Tobacco Use Status: Never used Tobacco e-Cigarette/Vaping Use: Never Used Second Hand Smoke Exposure: No Advance Directives: Yes Advance Directives on File: Yes Advance Directives Date on File: 02/06/21 service: No Current occupational status: retired Cognitive needs: Yes (walker/cane) Hearing needs: Yes (hearing aide) Vision needs: Yes (glasses) Meds Allergies Allergy/AdvReac Type Severity Reaction Status Date / Time meperidine [From Demerol] Allergy Severe Nausea and Verified 08/07/23 19:27 Vomiting amoxicillin [AMOXICILLIN] Allergy Intermediate Rash Verified 08/07/23 19:27 cephalexin Allergy Intermediate Itching Verified 08/07/23 19:27 erythromycin base Allergy Intermediate Itching Verified 08/07/23 19:27 meloxicam Allergy Intermediate Abdominal Verified 08/07/23 19:27 Pain nitrofurantoin Allergy Intermediate Rash Verified 08/07/23 19:27 [From Macrobid] Penicillins Allergy Intermediate Rash Verified 08/07/23 19:27 Sulfa (Sulfonamide Allergy Intermediate Rash Verified 08/07/23 19:27 Antibiotics) [SULFA(SULFONAMIDE ANTIBIOTICS)] tramadol Allergy Intermediate Nausea and Verified 08/07/23 19:27 Vomiting codeine [CODEINE] AdvReac Intermediate Nausea Verified 08/07/23 19:27 Home Medications Medication Instructions Recorded Confirmed Last Taken Type omeprazole 20 mg capsule,delayed 20 mg PO DAILY@0630 07/10/20 07/15/23 Unknown History release lysine 1,000 mg tablet 1,000 mg PO DAILY 12/17/20 05/22/23 Unknown History calcium carbonate 600 mg calcium 600 mg PO DAILY@1700 12/31/20 05/22/23 Unknown History (1,500 mg) tablet cod liver oil 1 cap PO DAILY 12/31/20 05/22/23 Unknown History ferrous sulfate 325 mg (65 mg 325 mg PO DAILY 12/31/20 07/15/23 03/11/23 History iron) tablet fexofenadine 180 mg tablet 180 mg PO BEDTIME 12/31/20 05/22/23 Unknown History vitamin E succinate 268 mg (400 400 unit PO DAILY 12/31/20 05/22/23 Unknown History unit) tablet ascorbic acid (vitamin C) 1,000 mg 1,000 mg PO Q12H 02/06/21 05/22/23 Unknown History tablet,extended release (Vitamin C With Vanessa Hips) cyanocobalamin (vitamin B-12) 1,000 mcg PO DAILY 02/06/21 05/22/23 Unknown History 1,000 mcg tablet pyridoxine (vitamin B6) 100 mg 100 mg PO DAILY 02/06/21 05/22/23 Unknown History tablet vit C-vit O-ngdlun-pchsfayr capsule 2 cap PO DAILY 02/06/21 05/22/23 Unknown History acetaminophen 500 mg tablet 1,000 mg PO .twice a day Pain, Mild 03/13/21 05/22/23 03/11/23 History cholecalciferol (vitamin D3) 25 25 mcg PO DAILY 11/05/21 05/22/23 03/11/23 History mcg (1,000 unit) capsule vit cap PO BID 11/12/22 05/22/23 Unknown History C,E,zinc,Mw-lqzvg-4-lutein-zeaxanthin 250 mg-2.5 mg-0.5 mg capsule acetaminophen 500 mg tablet 1,000 mg PO Q6H PRN 05/18/23 05/22/23 Unknown History (Tylenol Extra Strength) nifedipine 30 mg tablet,extended 30 mg PO DAILY 05/18/23 07/15/23 Unknown History release albuterol sulfate 90 mcg/actuation 2 puff inhalation Q6H PRN 07/08/23 07/15/23 Unknown History aerosol inhaler (ProAir HFA) Bronchodilation Physical Exam 2 Vital Signs and Narrative: Vital Signs: Last Vital Signs Temp 98.3 F 08/08/23 01:08 Pulse 94 08/08/23 01:08 Resp 17 08/08/23 01:08 BP 155/64 H 08/08/23 01:08 Pulse Ox 99 08/08/23 01:08 O2 Del Method Room Air 08/08/23 01:08 BMI result Body Mass Index 27.5 General: Elderly white female in bed. Awake and alert. In no apparent distress Eyes: No pallor or jaundice. PERRLA, EOMI HENT: Moist oral mucus membranes. No oropharyngeal lesions. Neck: Supple. No cervical adenopathy. No JVD Cardiovascular: Regular rate and rhythm. Normal heart sounds. No murmurs, rubs or gallops. No JVD. No peripheral edema. Respiratory: Normal respiratory effort with no accessory muscle use. CTAB. , CTA bilaterally Gastrointestinal: Abdomen is flabby, soft, with mild suprapubic discomfort. NABS. No hepatosplenomegaly Extremities: No edema. No calf tenderness. Good peripheral pulses Skin: Warm/Dry. No rashes. No mottling. Capillary refill is < 2 seconds Neurological: Awake & alert. Oriented to self, place & situation. Normal speech & fair cognition. Gait & balance not assessed but CN II - XII grossly intact but not individually tested. No motor or sensory deficits Hematologic: No bleeding. No ecchymosis. No swollen or tender lymph nodes. Psychiatric: Cooperative. Appropriate mood and affect. Results Labs 08/07/23 20:26 08/07/23 20:26 Labs: Laboratory Results - last 24 hr 08/07/23 08/07/23 20:25 20:26 MCV 94.8 MCH 31.5 MCHC 33.2 RDW 14.7 Plt Count 196 MPV 11.9 Immature Gran % (Auto) 0.4 Neut % (Auto) 74.8 H Lymph % (Auto) 15.8 L [place] % (Auto) 8.0 Eos % (Auto) 0.7 Baso % (Auto) 0.3 Lymph # (Auto) 1.8 [place] # (Auto) 0.9 Eos # (Auto) 0.1 Baso # (Auto) 0.0 Abs Immat Gran (auto) 0.04 H Absolute Neuts (auto) 8.6 H Absolute Nucleated RBC 0.000 Nucleated RBC % (auto) 0.0 Smear Tech's Comments VERIFIED Anion Gap 18 Estim Creat Clear Calc 33.4 Estimated GFR 42 Random Glucose 132 H Calcium 9.5 Magnesium 2.1 Total Bilirubin 0.7 AST 78 H ALT 53 H Alkaline Phosphatase 103 Total Protein 7.7 Albumin 3.8 Lipase 12 Urine Color Dark Yellow Urine Appearance Turbid Urine pH 5.5 Ur Specific [place] 1.025 Urine Protein 100 (2+) H Urine Glucose (UA) Negative Urine Ketones Trace Urine Blood Moderate (2+) H Urine Nitrite Positive H Ur Leukocyte Esterase Large (3+) H Urine RBC >20 H Urine WBC >50 H Ur Squamous Epith Cells 6-10 Urine Bacteria 4+ Hyaline Casts 0-2 Influenza Type A (PCR) NEGATIVE Influenza Type B (PCR) NEGATIVE RSV RNA Qual (PCR) NEGATIVE SARS-CoV-2 RNA (RT-PCR) NEGATIVE Imaging Radiologist's Impressions: Impressions Abdomen/Pelvis CT 08/08/23 01:07 IMPRESSION: * Mild mucosal hyperemia of the urinary bladder could represent cystitis. Please correlate with urinalysis. * Cholelithiasis and gallbladder distention similar to prior. There is a tiny nonobstructive stone in the distal common bile duct, without associated dilatation. * Incidental 1.2 cm cyst in the pancreatic tail. Recommend follow-up MRI/MRCP in one year, if clinically indicated (given patient age). * Mild constipation. . Assessment and Plan (1) Acute UTI: Status: Acute (2) Weakness: Status: Acute Plan 88 year-old female with a past medical history of aortic valve replacement, diastolic heart failure, mild dementia, anemia, asthma here with: 1. UTI - UA concerning for UTI - admit and continue with IV antibiotics - consider switching to Levaquin or Fosfomycin given allergy to PCN - follow urine culture 2. Asthenia - 2/2 UTI - treat underlying UTI 3. Hypertension - BP well controlled - resume Metoprolol and Nifedipine 4. Hyperlipidemia - resume Atorvastatin Total time managing care of this patient today: 75 minutes. Quality Stroke Does the patient have a stroke diagnosis?: No VTE Prior VTE?: No VTE Risk Level:: Medical - moderate - high VTE Device Contraindication: N/A - Device Ordered VTE Drug Contraindication: N/A - Med Ordered
--- NOTE | 2023-08-08 03:27 | PC.NURSE ---
Comes from assisted living with c/o of dysuria , weakness and lower abd pain PMH mild dementia, asthma, aortic valve replacement UTI- antibiotics 22 in L wrist 20 in R AC
[2023-08-08 03:36] VITALS: BP 132/50; PULSE 84; RESP 16; TEMP 36.7; O2SAT 99
--- NOTE | 2023-08-08 06:25 | MHC.EDTECH ---
pt is asleep, was up most of the night. RN agrees to leave pt asleep and not wake for vitals.
[2023-08-08 07:07] VITALS: BP 149/51; PULSE 96; RESP 18; TEMP 37.1; O2SAT 97
--- NOTE | 2023-08-08 07:17 | PC.NURSE ---
Alert and responsive, denies pain or discomfort, purwick remains in place draining clear yellow urine
[2023-08-08] MEDS: levoFLOXacin/D5W 500 MG/100 ML PIGGYBACK 100 MG IV (07:40)
[2023-08-08] MEDS: Heparin Sodium,Porcine 5,000 UNIT/ML VIAL 5000 UNIT SUBCUT ×2 (07:41→19:18)
[2023-08-08] MEDS: Docusate Sodium 100 MG CAPSULE PO (07:41)
--- NOTE | 2023-08-08 08:49 | PHA.MEDREC ---
Pharmacy Consult ? Medication Reconciliation Pharmacy has completed the medication reconciliation. Spoke to Kasi ([phone]) to confirm meds.
--- NOTE | 2023-08-08 10:15 | PC.NURSE ---
Alert and responsive, transferred with 1 assist to commode. Denies pain or discomfort.
--- NOTE | 2023-08-08 11:01 | PC.NURSE ---
Daughter updated on current condition
[2023-08-08 11:10] VITALS: BP 143/55; PULSE 25; RESP 22; TEMP 36.8; O2SAT 98
--- NOTE | 2023-08-08 11:19 | PC.NURSE ---
Daughter geneva took home patients 2 rings and necklace yesterday , patient aware
--- NOTE | 2023-08-08 11:20 | PC.NURSE ---
Patient with 2 large BM`s, reports feeling better
[2023-08-08 16:00] VITALS: BP 131/63; PULSE 86; RESP 20; TEMP 36.4; O2SAT 97
[2023-08-08] MEDS: 0.9 % Sodium Chloride Flush 3 ML SYRINGE IVFLUSH (16:29)
--- NOTE | 2023-08-08 16:56 | PM.EVENT ---
Event Note Date of Service: 08/08/23 Event Note: 88 year-old female with a past medical history of aortic valve replacement, diastolic heart failure, mild dementia, anemia, asthma here with generalized weakness, lower abdominal pain associated with nausea vomiting, decreased by mouth intake, patient denied associated diarrhea patient is a resident of assisted living facility blood work in the ED showed a WBC of 11.4 hemoglobin 9.1 urinalysis analysis positive for 3+ leukocyte 4+ bacteria abdominal CT scan showed mild mucosal hyperemia of the urinary bladder concerning for cystitis. on arrival to floor patient noted to have 3 loose watery fall order stools 1. UTI - urine culture growing Gram-negative rods continue IV vancomycin follow final urine culture report 2. Asthenia - 2/2 UTI - treat underlying UTI 3. Hypertension - BP well controlled, follow BP at a.m. if stable will resume Metoprolol and Nifedipine 4. Hyperlipidemia - resume Atorvastatin 5. diarrhea will check stool studies. Time Spent With Patient Time: Total time managing care of this patient today ____ minutes.
[2023-08-08 19:14] VITALS: BP 148/65; PULSE 80; RESP 20; TEMP 36.2; O2SAT 99
[2023-08-08 19:31] LABS: CDiff Gene PCR NEGATIVE (Negative)
[2023-08-08] MEDS: Atorvastatin Calcium 80 MG TABLET PO (20:31)
[2023-08-08] MEDS: Acetaminophen 325 MG TABLET 650 MG PO (20:31)
[2023-08-08] MEDS: Amitriptyline HCl 10 MG TABLET PO (20:31)
[2023-08-09] VITALS (8 sets, daily range): BP systolic 128–159; BP diastolic 55–72; PULSE 77–85; RESP 16–20; TEMP 36.6–37.1; O2SAT 96–100
[2023-08-09] MEDS: 0.9 % Sodium Chloride Flush 3 ML SYRINGE IVFLUSH ×4 (00:05→22:08)
[2023-08-09] MEDS: levoFLOXacin/D5W 500 MG/100 ML PIGGYBACK 100 MG IV (06:23)
[2023-08-09] MEDS: Heparin Sodium,Porcine 5,000 UNIT/ML VIAL 5000 UNIT SUBCUT ×2 (06:24→18:03)
[2023-08-09 07:32] LABS: Hematocrit 24.9 % (37.0-47.0); Hemoglobin 8.1 g/dl (12.0-16.0); Mean Corpuscular HGB Conc 32.5 g/dl (31.0-35.0); Mean Corpuscular Hemoglobin 30.9 pg (27.0-33.0); Platelet Count 282 X10*3/uL (160-400); Red Blood Count 2.62 X10*6/uL (4.20-5.50); Red Cell Distribution Width 14.6 % (11.0-16.0); White Blood Count 10.7 X10*3/uL (4.8-10.8)
[2023-08-09] MEDS: Ferrous Sulfate 324 MG TABLET.DR PO (09:07)
[2023-08-09] MEDS: Docusate Sodium 100 MG CAPSULE PO (09:07)
[2023-08-09] MEDS: diphenhydrAMINE HCL 25 MG CAPSULE PO (09:07)
[2023-08-09] MEDS: Aspirin Enteric Coated 81 MG TABLET.DR PO (09:07)
[2023-08-09 12:22] LABS: Anion Gap 15 (12-20); Blood Urea Nitrogen 25 mg/dL (9-16); Calcium 8.4 mg/dL (8.4-10.2); Carbon Dioxide 19 mmol/L (22-29); Chloride 109 mmol/L (96-108); Creatinine Clr Calc Pharmacy 34.6; Estimated Glomerular Filt Rate 44; Glucose Random 99 mg/dL (60-115); Potassium 3.5 mmol/L (3.3-5.1); Sodium 139 mmol/L (135-145)
[2023-08-09 13:17] LABS: Adenovirus F 40/41 Not Detected (Not Detect.); Astrovirus Not Detected (Not Detect.); Campylobacter Not Detected (Not Detect.); Cryptosporidium Not Detected (Not Detect.); Cyclospora cayetanensis Not Detected (Not Detect.); E. coli EAEC Not Detected (Not Detect.); E. coli EPEC Not Detected (Not Detect.); E. coli ETEC Not Detected (Not Detect.); E. coli STEC Not Detected (Not Detect.); Entamoeba histolytica Not Detected (Not Detect.); Giardia lamblia Not Detected (Not Detect.); Norovirus GI/GII Not Detected (Not Detect.); Plesiomonas shigelloides Not Detected (Not Detect.); Rotavirus A Not Detected (Not Detect.); Salmonella Not Detected (Not Detect.); Sapovirus Not Detected (Not Detect.); Shigella sp./EIEC Not Detected (Not Detect.); Vibrio Not Detected (Not Detect.); Vibrio Cholerae Not Detected (Not Detect.); Yersinia enterocolitica Not Detected (Not Detect.)
--- NOTE | 2023-08-09 13:20 | P.PNIM_ITS ---
Subjective Subjective Date of Service: 08/09/23 Interval History: being followed for nausea vomiting decreased by mouth intake, UTI and weakness. this morning patient is feeling better, but has upset stomach, trying to take more soups , had couple loose stools yesterday, stool for C diff negative, stool panel pending. Review of Systems all other system reviewed and negative Physical Exam 2 Vital Signs: Vital Signs: Last Vital Signs Temp 97.8 F 08/09/23 11:04 Pulse 83 08/09/23 11:04 Resp 17 08/09/23 11:04 BP 159/72 H 08/09/23 11:15 Pulse Ox 96 08/09/23 11:04 O2 Del Method Room Air 08/09/23 11:04 BMI result Body Mass Index 27.5 Const: Other: General awake alert x3, resting comfortably in no acute distress. Neck no JVD. CVS regular rate rhythm, Respiratory lungs clear to auscultation, no respiratory distress, no wheeze, no rhonchi. Gastrointestinal abdomen soft, non tender, bowel sounds audible,no guarding , no rigidity. Extremities no edema. Neuro nonfocal Skin no rash/pallor psych appropriate affect Objective Data Active Medications Acetaminophen (Acetaminophen 325 Mg Tablet) 650 mg PO Q6H PRN PRN Reason: Pain, Mild (Pain Scale 1-3) Last Admin: 08/08/23 20:31 Dose: 650 mg Documented By: CLARK Al Hydroxide/Mg Hydroxide (Magnesium Hydrox/Alum Hydrox 30 Ml Oral.Susp) 30 ml PO Q4H PRN PRN Reason: Heartburn/Nausea Albuterol Sulfate (Albuterol Sulfate 90 Mcg 8 Gm Inhaler) 2 puff INHALE Q6H PRN PRN Reason: Bronchodilation Amitriptyline HCl (Amitriptyline Hcl 10 Mg Tablet) 10 mg PO BEDTIME [facility] Last Admin: 08/08/23 20:31 Dose: 10 mg Documented By: CLARK Aspirin (Aspirin Enteric Coated 81 Mg Tablet.) 81 mg PO DAILY [facility] Last Admin: 08/09/23 09:07 Dose: 81 mg Documented By: JANAY Atorvastatin Calcium (Atorvastatin Calcium 80 Mg Tablet) 80 mg PO BEDTIME [facility] Last Admin: 08/08/23 20:31 Dose: 80 mg Documented By: CLARK Diphenhydramine HCl (Diphenhydramine Hcl 25 Mg Capsule) 25 mg PO DAILY [facility] Last Admin: 08/09/23 09:07 Dose: 25 mg Documented By: JANAY Docusate Sodium (Docusate Sodium 100 Mg Capsule) 100 mg PO BID [facility] Last Admin: 08/09/23 09:07 Dose: 100 mg Documented By: JANAY Ferrous Sulfate (Ferrous Sulfate 324 Mg Tablet.Dr) 324 mg PO DAILY [facility] Last Admin: 08/09/23 09:07 Dose: 324 mg Documented By: JANAY Heparin Sodium (Porcine) (Heparin Sodium,Porcine 5,000 Unit/Ml Vial) 5,000 unit SUBCUT Q12H [facility] Last Admin: 08/09/23 06:24 Dose: 5,000 unit Documented By: ANGELES Levofloxacin (Levaquin) 750 mg in 150 mls @ 100 mls/hr IV Q48H [facility] Melatonin (Melatonin 3 Mg Tablet) 6 mg PO BEDTIME PRN PRN Reason: Insomnia Ondansetron HCl (Ondansetron Hcl 4 Mg/2 Ml Vial) 4 mg IVPUSH Q8H PRN PRN Reason: Nausea and Vomiting Sodium Chloride (0.9 % Sodium Chloride Flush 3 Ml Syringe) 3 ml IVFLUSH QSHIFT [facility] Last Admin: 08/09/23 09:07 Dose: 3 ml Documented By: JANAY Labs 08/09/23 06:42 08/09/23 06:42 Labs: Laboratory Results - last 24 hr 08/08/23 08/09/23 18:10 06:42 MCV 95.0 MCH 30.9 MCHC 32.5 RDW 14.6 Plt Count 282 D MPV 11.0 Absolute Nucleated RBC 0.000 Nucleated RBC % (auto) 0.0 Anion Gap 15 Estim Creat Clear Calc 34.6 Estimated GFR 44 Random Glucose 99 Calcium 8.4 D C. difficile Tox B Gene NEGATIVE Microbiology Microbiology Results: Microbiology 08/07/23 20:42 Urine Culture - Final Urine clean catch - Urine rich top Escherichia coli Assessment and Plan (1) Acute UTI: Status: Acute (2) Weakness: Status: Acute (3) Anemia: Status: Acute Plan 88 year-old female with a past medical history of aortic valve replacement, diastolic heart failure, mild dementia, anemia, asthma here with generalized weakness, lower abdominal pain associated with nausea vomiting, decreased by mouth intake, patient denied associated diarrhea patient is a resident of assisted living facility blood work in the ED showed a WBC of 11.4 hemoglobin 9.1 urinalysis analysis positive for 3+ leukocyte 4+ bacteria abdominal CT scan showed mild mucosal hyperemia of the urinary bladder concerning for cystitis. 1. UTI - urine culture growing e.coli ,continue IV Levaquin follow final urine culture report WBC normalized Chronic kidney disease stage 3 Levaquin renally dosed 2. Asthenia - 2/2 UTI/ diarrhea feeling a little better recommend out of bed to chair if no improvement will obtain PT consult 3. Hypertension - will resume metoprolol 25 mg b.i.d. if stable will resume Nifedipine 4. Hyperlipidemia - Atorvastatin 5. Diarrhea stool for C diff negative, stool panel pending, no further bout of diarrhea this morning. 6. acute on chronic normocytic anemia hematocrit dropped, hemoglobin greater than 8, hold blood transfusion, follow CBC, check stool guaiac 7. DVT prophylaxis on heparin in my clinical judgment patient need continued inpatient hospitalization for persistent weakness diarrhea and anemia will need close CBC and electrolyte monitoring. Quality Stroke Does the patient have a stroke diagnosis?: No VTE Prior VTE?: No VTE Risk Level:: Medical - moderate - high VTE Device Contraindication: N/A - Device Ordered VTE Drug Contraindication: N/A - Med Ordered
--- NOTE | 2023-08-09 14:51 | MHC.CM.PN ---
Addendum entered by Sydni Zayas RN 08/09/23 16:15: CM RECEIVED MESSAGE FROM [facility] FROM [facility] REQUESTING CALL WHEN PT WILL BE DC'D SO THEY CAN SEND A NURSE TO CHECK IN W/PT. HERMELINDA [phone]. 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 PCP AND HCP ON FILE VERIFIED AND PT COVID VACC X4.
[2023-08-09] MEDS: Acetaminophen 325 MG TABLET 650 MG PO (18:06)
[2023-08-09] MEDS: Atorvastatin Calcium 80 MG TABLET PO (22:08)
[2023-08-09] MEDS: Metoprolol Tartrate 25 MG TABLET PO (22:08)
[2023-08-09] MEDS: Amitriptyline HCl 10 MG TABLET PO (22:08)
[2023-08-10 03:33] VITALS: BP 126/55; PULSE 76; RESP 18; TEMP 36.8; O2SAT 96
[2023-08-10] MEDS: Heparin Sodium,Porcine 5,000 UNIT/ML VIAL 5000 UNIT SUBCUT ×2 (06:06→18:03)
[2023-08-10 07:30] LABS: Hematocrit 21.8 % (37.0-47.0); Hemoglobin 7.3 g/dl (12.0-16.0); Mean Corpuscular HGB Conc 33.5 g/dl (31.0-35.0); Mean Corpuscular Hemoglobin 31.6 pg (27.0-33.0); Mean Corpuscular Volume 94.4 fL (80.0-98.0); Mean Platelet Volume 11.1 fL (9.4-12.3); Platelet Count 240 X10*3/uL (160-400); Red Blood Count 2.31 X10*6/uL (4.20-5.50); Red Cell Distribution Width 14.4 % (11.0-16.0); White Blood Count 7.8 X10*3/uL (4.8-10.8)
[2023-08-10 07:44] LABS: Anion Gap 14 (12-20); Blood Urea Nitrogen 24 mg/dL (9-16); Calcium 7.9 mg/dL (8.4-10.2); Carbon Dioxide 17 mmol/L (22-29); Chloride 108 mmol/L (96-108); Creatinine Clr Calc Pharmacy 34.6; Estimated Glomerular Filt Rate 44; Glucose Random 101 mg/dL (60-115); Potassium 3.3 mmol/L (3.3-5.1); Sodium 136 mmol/L (135-145)
[2023-08-10 07:45] VITALS: BP 153/67; PULSE 77; RESP 18; TEMP 36.3; O2SAT 95
[2023-08-10] MEDS: Aspirin Enteric Coated 81 MG TABLET.DR PO (08:45)
[2023-08-10] MEDS: Metoprolol Tartrate 25 MG TABLET PO ×2 (08:46→20:41)
[2023-08-10] MEDS: diphenhydrAMINE HCL 25 MG CAPSULE PO (08:46)
[2023-08-10] MEDS: Ferrous Sulfate 324 MG TABLET.DR PO (08:46)
[2023-08-10] MEDS: 0.9 % Sodium Chloride Flush 3 ML SYRINGE IVFLUSH ×2 (08:49→20:41)
--- NOTE | 2023-08-10 11:48 | MHC.CM.PN ---
per rounds pt requiring a pt eval prior [facility] dc [facility]
--- NOTE | 2023-08-10 14:02 | P.PNIM_ITS ---
Subjective Subjective Date of Service: 08/10/23 Interval History: No acute issues although extremely fatigued. Declined PT this a.m. secondary to ?weakness? Review of Systems Denies chest pain Denies shortness of breath Denies nausea vomiting diarrhea Denies fever chills Physical Exam 2 Vital Signs: Vital Signs: Last Vital Signs Temp 97.3 F 08/10/23 07:45 Pulse 77 08/10/23 07:45 Resp 18 08/10/23 07:45 BP 153/67 H 08/10/23 07:45 Pulse Ox 95 08/10/23 07:45 O2 Del Method Room Air 08/10/23 07:45 BMI result Body Mass Index 27.5 Const: Other: Awake alert no acute distress Resp: Other: Clear to auscultation bilaterally no rales rhonchi or wheezes Cardio: Other: No S4; positive S1-S2; no S3 murmurs rubs or gallops GI: Other: Soft nontender nondistended normoactive bowel sounds Extrem: Other: No edema bilaterally Objective Data Active Medications Acetaminophen (Acetaminophen 325 Mg Tablet) 650 mg PO Q6H PRN PRN Reason: Pain, Mild (Pain Scale 1-3) Last Admin: 08/09/23 18:06 Dose: 650 mg Documented By: JANAY Al Hydroxide/Mg Hydroxide (Magnesium Hydrox/Alum Hydrox 30 Ml Oral.Susp) 30 ml PO Q4H PRN PRN Reason: Heartburn/Nausea Albuterol Sulfate (Albuterol Sulfate 90 Mcg 8 Gm Inhaler) 2 puff INHALE Q6H PRN PRN Reason: Bronchodilation Amitriptyline HCl (Amitriptyline Hcl 10 Mg Tablet) 10 mg PO BEDTIME [facility] Last Admin: 08/09/23 22:08 Dose: 10 mg Documented By: AMANDA Aspirin (Aspirin Enteric Coated 81 Mg Tablet.Dr) 81 mg PO DAILY [facility] Last Admin: 08/10/23 08:45 Dose: 81 mg Documented By: ADRIANNE Atorvastatin Calcium (Atorvastatin Calcium 80 Mg Tablet) 80 mg PO BEDTIME [facility] Last Admin: 08/09/23 22:08 Dose: 80 mg Documented By: AMANDA Diphenhydramine HCl (Diphenhydramine Hcl 25 Mg Capsule) 25 mg PO DAILY [facility] Last Admin: 08/10/23 08:46 Dose: 25 mg Documented By: ADRIANNE Docusate Sodium (Docusate Sodium 100 Mg Capsule) 100 mg PO BID [facility] Last Admin: 08/10/23 08:49 Dose: Not Given Documented By: ADRIANNE Non-Admin Reason: loose stools overnight Ferrous Sulfate (Ferrous Sulfate 324 Mg Tablet.) 324 mg PO DAILY [facility] Last Admin: 08/10/23 08:46 Dose: 324 mg Documented By: ADRIANNE Heparin Sodium (Porcine) (Heparin Sodium,Porcine 5,000 Unit/Ml Vial) 5,000 unit SUBCUT Q12H [facility] Last Admin: 08/10/23 06:06 Dose: 5,000 unit Documented By: AMANDA Levofloxacin (Levaquin) 750 mg in 150 mls @ 100 mls/hr IV Q48H [facility] Melatonin (Melatonin 3 Mg Tablet) 6 mg PO BEDTIME PRN PRN Reason: Insomnia Metoprolol Tartrate (Metoprolol Tartrate 25 Mg Tablet) 25 mg PO BID [facility]; Protocol Last Admin: 08/10/23 08:46 Dose: 25 mg Documented By: ADRIANNE Ondansetron HCl (Ondansetron Hcl 4 Mg/2 Ml Vial) 4 mg IVPUSH Q8H PRN PRN Reason: Nausea and Vomiting Sodium Chloride (0.9 % Sodium Chloride Flush 3 Ml Syringe) 3 ml IVFLUSH QSHIFT [facility] Last Admin: 08/10/23 08:49 Dose: 3 ml Documented By: ADRIANNE Labs 08/10/23 06:39 08/10/23 06:39 Labs: Laboratory Results - last 24 hr 08/10/23 06:39 MCV 94.4 MCH 31.6 MCHC 33.5 RDW 14.4 Plt Count 240 MPV 11.1 Absolute Nucleated RBC 0.000 Nucleated RBC % (auto) 0.0 Anion Gap 14 Estim Creat Clear Calc 34.6 Estimated GFR 44 Random Glucose 101 Calcium 7.9 L Assessment and Plan (1) Acute UTI: Status: Acute (2) Benign essential HTN: Status: Acute Plan 88 year-old female with a past medical history of aortic valve replacement, diastolic heart failure, mild dementia, anemia, asthma here with generalized weakness, lower abdominal pain associated with nausea vomiting, decreased by mouth intake, patient denied associated diarrhea patient is a resident of assisted living facility blood work in the ED showed a WBC of 11.4 hemoglobin 9.1 urinalysis analysis positive for 3+ leukocyte 4+ bacteria abdominal CT scan showed mild mucosal hyperemia of the urinary bladder concerning for cystitis. 1. UTI (E coli pansensitive) -IV Levaquin (2) -switch to p.o. upon DC in renally dosed 2.Hypertension -acceptable control on current therapies -adjust as indicated 3. Hyperlipidemia - Atorvastatin Full code Lovenox Requires ongoing hospitalization for IV antibiotics to treat UTI Quality Stroke Does the patient have a stroke diagnosis?: No VTE Prior VTE?: No VTE Risk Level:: Medical - moderate - high VTE Device Contraindication: N/A - Device Ordered VTE Drug Contraindication: N/A - Med Ordered
[2023-08-10 15:03] LABS: OBS Int Ctl Valid YES; OBS1 POSITIVE (NEGATIVE)
[2023-08-10 15:27] VITALS: BP 130/64; PULSE 78; RESP 18; TEMP 36; O2SAT 96
[2023-08-10 19:35] VITALS: BP 166/67; PULSE 86; RESP 18; TEMP 36.3; O2SAT 96
[2023-08-10] MEDS: Acetaminophen 325 MG TABLET 650 MG PO (19:38)
[2023-08-10] MEDS: Amitriptyline HCl 10 MG TABLET PO (20:41)
[2023-08-10] MEDS: Docusate Sodium 100 MG CAPSULE PO (20:41)
[2023-08-10] MEDS: Atorvastatin Calcium 80 MG TABLET PO (20:41)
[2023-08-11 04:00] VITALS: BP 121/56; PULSE 73; RESP 16; TEMP 36.1; O2SAT 97
[2023-08-11 05:41] LABS: MANUAL DIFF FLAG NO
[2023-08-11 05:48] LABS: Basophils Absolute Auto 0.1 X10*3/uL (0.0-0.2); Basophils Percent Auto 0.7 % (0-2); Eosinophils Absolute Auto 0.6 X10*3/uL (0.0-0.4); Eosinophils Percent Auto 7.1 % (0-4); Hematocrit 22.1 % (37.0-47.0); Hemoglobin 7.3 g/dl (12.0-16.0); Imm Gran Abs Auto 0.04 X10*3/uL (0.00-0.03); Imm Gran Pct Auto 0.5 % (0.0-0.4); Lymphocytes Absolute Auto 3.2 X10*3/uL (1.2-4.9); Mean Corpuscular Hemoglobin 30.9 pg (27.0-33.0); Mean Corpuscular Volume 93.6 fL (80.0-98.0); Mean Platelet Volume 10.4 fL (9.4-12.3); Monocytes Absolute Auto 0.8 X10*3/uL (0.1-1.2); Monocytes Percent Auto 9.7 % (2-11); Neutrophils Absolute Auto 3.9 x10*3/uL (2.0-8.3); Platelet Count 251 X10*3/uL (160-400); Red Blood Count 2.36 X10*6/uL (4.20-5.50); Red Cell Distribution Width 14.2 % (11.0-16.0); White Blood Count 8.6 X10*3/uL (4.8-10.8)
[2023-08-11] MEDS: Heparin Sodium,Porcine 5,000 UNIT/ML VIAL 5000 UNIT SUBCUT ×2 (05:58→18:10)
[2023-08-11 06:04] LABS: Alanine Aminotransferase 44 U/L (0-31); Albumin Level 2.9 g/dL (3.5-5.0); Alkaline Phosphatase 89 U/L (39-117); Anion Gap 13 (12-20); Aspartate Amino Transferase 54 U/L (5-31); Bilirubin Total 0.3 mg/dL (0.0-1.0); Blood Urea Nitrogen 25 mg/dL (9-16); Calcium 8.3 mg/dL (8.4-10.2); Carbon Dioxide 19 mmol/L (22-29); Chloride 109 mmol/L (96-108); Creatinine Clr Calc Pharmacy 42.2; Estimated Glomerular Filt Rate 56; Glucose Fasting 106 mg/dL (60-99); Potassium 3.4 mmol/L (3.3-5.1); Sodium 138 mmol/L (135-145); Total Protein 5.8 g/dL (6.5-8.0)
[2023-08-11 07:53] VITALS: BP 149/67; PULSE 74; RESP 17; TEMP 36.3; O2SAT 98
[2023-08-11] MEDS: Aspirin Enteric Coated 81 MG TABLET.DR PO (09:18)
[2023-08-11] MEDS: Ferrous Sulfate 324 MG TABLET.DR PO (09:19)
[2023-08-11] MEDS: diphenhydrAMINE HCL 25 MG CAPSULE PO (09:19)
[2023-08-11] MEDS: Metoprolol Tartrate 25 MG TABLET PO ×2 (09:19→19:59)
[2023-08-11] MEDS: levoFLOXacin/D5W 750 MG/150 ML PIGGYBACK 100 MG IV (09:19)
[2023-08-11] MEDS: 0.9 % Sodium Chloride Flush 3 ML SYRINGE IVFLUSH ×3 (09:19→19:57)
[2023-08-11] MEDS: Acetaminophen 325 MG TABLET 650 MG PO ×2 (12:48→19:55)
--- NOTE | 2023-08-11 14:28 | HO.PM.IMPN ---
Subjective Subjective Date of Service: 08/11/23 Interval History: Remains extremely fatigued but no acute events overnight. Physical therapy recommending short-term rehab Review of Systems Denies chest pain Denies shortness of breath Denies nausea vomiting diarrhea Denies fever chills Physical Exam Vital Signs: Vital Signs: Last Vital Signs Temp 97.3 F 08/11/23 07:53 Pulse 74 08/11/23 07:53 Resp 17 08/11/23 07:53 BP 149/67 H 08/11/23 07:53 Pulse Ox 98 08/11/23 07:53 O2 Del Method Room Air 08/11/23 07:53 BMI result Body Mass Index 27.5 Const: Other: Awake alert no acute distress Resp: Other: Clear to auscultation bilaterally no rales rhonchi or wheezes Cardio: Other: No S4; positive S1-S2; no S3 murmurs rubs or gallops GI: Other: Soft nontender nondistended normoactive bowel sounds Extrem: Other: No edema bilaterally Objective Data Active Medications Acetaminophen (Acetaminophen 325 Mg Tablet) 650 mg PO Q6H PRN PRN Reason: Pain, Mild (Pain Scale 1-3) Last Admin: 08/11/23 12:48 Dose: 650 mg Documented By: ADRIANNE Al Hydroxide/Mg Hydroxide (Magnesium Hydrox/Alum Hydrox 30 Ml Oral.Susp) 30 ml PO Q4H PRN PRN Reason: Heartburn/Nausea Albuterol Sulfate (Albuterol Sulfate 90 Mcg 8 Gm Inhaler) 2 puff INHALE Q6H PRN PRN Reason: Bronchodilation Amitriptyline HCl (Amitriptyline Hcl 10 Mg Tablet) 10 mg PO BEDTIME [facility] Last Admin: 08/10/23 20:41 Dose: 10 mg Documented By: BRYANNA Aspirin (Aspirin Enteric Coated 81 Mg Tablet.) 81 mg PO DAILY [facility] Last Admin: 08/11/23 09:18 Dose: 81 mg Documented By: ADRIANNE Atorvastatin Calcium (Atorvastatin Calcium 80 Mg Tablet) 80 mg PO BEDTIME [facility] Last Admin: 08/10/23 20:41 Dose: 80 mg Documented By: BRYANNA Diphenhydramine HCl (Diphenhydramine Hcl 25 Mg Capsule) 25 mg PO DAILY [facility] Last Admin: 08/11/23 09:19 Dose: 25 mg Documented By: ADRIANNE Docusate Sodium (Docusate Sodium 100 Mg Capsule) 100 mg PO BID [facility] Last Admin: 08/11/23 09:19 Dose: Not Given Documented By: ADRIANNE Non-Admin Reason: Patient Refused Ferrous Sulfate (Ferrous Sulfate 324 Mg Tablet.) 324 mg PO DAILY [facility] Last Admin: 08/11/23 09:19 Dose: 324 mg Documented By: ADRIANNE Heparin Sodium (Porcine) (Heparin Sodium,Porcine 5,000 Unit/Ml Vial) 5,000 unit SUBCUT Q12H [facility] Last Admin: 08/11/23 05:58 Dose: 5,000 unit Documented By: BRYANNA Levofloxacin (Levaquin) 750 mg in 150 mls @ 100 mls/hr IV Q48H [facility] Last Infusion: 08/11/23 12:18 Dose: Infused Documented By: ADRIANNE Melatonin (Melatonin 3 Mg Tablet) 6 mg PO BEDTIME PRN PRN Reason: Insomnia Metoprolol Tartrate (Metoprolol Tartrate 25 Mg Tablet) 25 mg PO BID [facility]; Protocol Last Admin: 08/11/23 09:19 Dose: 25 mg Documented By: ADRIANNE Ondansetron HCl (Ondansetron Hcl 4 Mg/2 Ml Vial) 4 mg IVPUSH Q8H PRN PRN Reason: Nausea and Vomiting Sodium Chloride (0.9 % Sodium Chloride Flush 3 Ml Syringe) 3 ml IVFLUSH QSHIFT [facility] Last Admin: 08/11/23 09:19 Dose: 3 ml Documented By: ADRIANNE Labs 08/11/23 05:17 08/11/23 05:17 Labs: Laboratory Results - last 24 hr 08/10/23 08/11/23 Unknown 05:17 MCV 93.6 MCH 30.9 MCHC 33.0 RDW 14.2 Plt Count 251 MPV 10.4 Immature Gran % (Auto) 0.5 H Neut % (Auto) 45.0 Lymph % (Auto) 37.0 [place] % (Auto) 9.7 Eos % (Auto) 7.1 H Baso % (Auto) 0.7 Lymph # (Auto) 3.2 [place] # (Auto) 0.8 Eos # (Auto) 0.6 H Baso # (Auto) 0.1 Abs Immat Gran (auto) 0.04 H Absolute Neuts (auto) 3.9 Absolute Nucleated RBC 0.000 Nucleated RBC % (auto) 0.0 Anion Gap 13 Estim Creat Clear Calc 42.2 Estimated GFR 56 Fasting Glucose 106 H Calcium 8.3 L Total Bilirubin 0.3 AST 54 H ALT 44 H Alkaline Phosphatase 89 Total Protein 5.8 L Albumin 2.9 L Stool Occult Blood POSITIVE Assessment and Plan (1) Acute UTI: Status: Acute (2) Benign essential HTN: Status: Acute Plan 88 year-old female with a past medical history of aortic valve replacement, diastolic heart failure, mild dementia, anemia, asthma here with generalized weakness, lower abdominal pain associated with nausea vomiting, decreased by mouth intake, patient denied associated diarrhea patient is a resident of assisted living facility blood work in the ED showed a WBC of 11.4 hemoglobin 9.1 urinalysis analysis positive for 3+ leukocyte 4+ bacteria abdominal CT scan showed mild mucosal hyperemia of the urinary bladder concerning for cystitis. 1. UTI (E coli pansensitive) -IV Levaquin (3) -switch to p.o. upon DC -blood cultures pending 2.Hypertension -acceptable control on current therapies -adjust as indicated 3. Hyperlipidemia - Atorvastatin Full code Lovenox Requires ongoing hospitalization for IV antibiotics to treat UTI; blood cultures pending. Will need short-term rehab Quality Stroke Does the patient have a stroke diagnosis?: No VTE Prior VTE?: No VTE Risk Level:: Medical - moderate - high VTE Device Contraindication: N/A - Device Ordered VTE Drug Contraindication: N/A - Med Ordered
[2023-08-11 15:45] VITALS: BP 159/70; PULSE 65; RESP 18; TEMP 36; O2SAT 98
--- NOTE | 2023-08-11 15:58 | MHC.CM.PN ---
per dr muñoz pt recommending str referrals made
[2023-08-11 19:56] VITALS: BP 154/67; PULSE 71; RESP 18; TEMP 36.1; O2SAT 92
[2023-08-11] MEDS: Atorvastatin Calcium 80 MG TABLET PO (19:56)
[2023-08-11] MEDS: Amitriptyline HCl 10 MG TABLET PO (19:56)
[2023-08-11] MEDS: Docusate Sodium 100 MG CAPSULE PO (19:56)
[2023-08-12] MEDS: Melatonin 3 MG TABLET 6 MG PO (00:08)
[2023-08-12] MEDS: Acetaminophen 325 MG TABLET 650 MG PO ×3 (00:08→15:59)
[2023-08-12] MEDS: Lidocaine 4 % Patch ADH..PATCH 1 PATCH TRANSDERMA (00:08)
[2023-08-12 04:00] VITALS: BP 125/56; PULSE 69; RESP 16; TEMP 36.3; O2SAT 95
[2023-08-12] MEDS: Heparin Sodium,Porcine 5,000 UNIT/ML VIAL 5000 UNIT SUBCUT ×2 (06:07→17:57)
[2023-08-12 06:10] LABS: MANUAL DIFF FLAG NO
[2023-08-12 06:27] LABS: Basophils Percent Auto 0.6 % (0-2); Eosinophils Absolute Auto 0.5 X10*3/uL (0.0-0.4); Eosinophils Percent Auto 7.5 % (0-4); Hematocrit 22.7 % (37.0-47.0); Hemoglobin 7.4 g/dl (12.0-16.0); Imm Gran Abs Auto 0.05 X10*3/uL (0.00-0.03); Imm Gran Pct Auto 0.7 % (0.0-0.4); Lymphocytes Absolute Auto 2.6 X10*3/uL (1.2-4.9); Lymphocytes Percent Auto 35.6 % (20-40); Mean Corpuscular HGB Conc 32.6 g/dl (31.0-35.0); Mean Platelet Volume 11.1 fL (9.4-12.3); Monocytes Absolute Auto 0.7 X10*3/uL (0.1-1.2); Monocytes Percent Auto 10.2 % (2-11); Neutrophils Absolute Auto 3.3 x10*3/uL (2.0-8.3); Neutrophils Percent Auto 45.4 % (45-73); Platelet Count 239 X10*3/uL (160-400); Red Blood Count 2.39 X10*6/uL (4.20-5.50); Red Cell Distribution Width 14.1 % (11.0-16.0); White Blood Count 7.2 X10*3/uL (4.8-10.8)
[2023-08-12 06:33] LABS: Alanine Aminotransferase 43 U/L (0-31); Albumin Level 2.9 g/dL (3.5-5.0); Alkaline Phosphatase 84 U/L (39-117); Anion Gap 13 (12-20); Aspartate Amino Transferase 57 U/L (5-31); Bilirubin Total 0.3 mg/dL (0.0-1.0); Blood Urea Nitrogen 21 mg/dL (9-16); Calcium 8.5 mg/dL (8.4-10.2); Carbon Dioxide 19 mmol/L (22-29); Chloride 108 mmol/L (96-108); Creatinine Clr Calc Pharmacy 43.1; Estimated Glomerular Filt Rate 57; Glucose Fasting 107 mg/dL (60-99); Potassium 3.6 mmol/L (3.3-5.1); Sodium 136 mmol/L (135-145); Total Protein 5.9 g/dL (6.5-8.0)
[2023-08-12 07:29] VITALS: BP 143/65; PULSE 59; RESP 16; TEMP 36.2; O2SAT 96
[2023-08-12 07:58] VITALS: PULSE 70
[2023-08-12] MEDS: Docusate Sodium 100 MG CAPSULE PO ×2 (08:00→20:30)
[2023-08-12] MEDS: diphenhydrAMINE HCL 25 MG CAPSULE PO (08:00)
[2023-08-12] MEDS: Ferrous Sulfate 324 MG TABLET.DR PO (08:00)
[2023-08-12] MEDS: Aspirin Enteric Coated 81 MG TABLET.DR PO (08:00)
[2023-08-12] MEDS: 0.9 % Sodium Chloride Flush 3 ML SYRINGE IVFLUSH ×3 (08:00→20:30)
[2023-08-12] MEDS: Metoprolol Tartrate 25 MG TABLET PO ×2 (08:00→20:30)
--- NOTE | 2023-08-12 12:21 | MHC.CM.PN ---
pt for placement awaitng [place]entín pt is ready for dc today
--- NOTE | 2023-08-12 13:19 | HO.PM.IMPN ---
Subjective Subjective Date of Service: 08/12/23 Interval History: More alert today no acute issues overall Review of Systems Denies chest pain Denies shortness of breath Denies nausea vomiting diarrhea Denies fever chills Physical Exam Vital Signs: Vital Signs: Last Vital Signs Temp 97.1 F 08/12/23 07:29 Pulse 70 08/12/23 07:58 Resp 16 08/12/23 07:29 BP 143/65 H 08/12/23 07:29 Pulse Ox 96 08/12/23 07:29 O2 Del Method Room Air 08/12/23 07:29 BMI result Body Mass Index 27.5 Const: Other: Awake alert no acute distress Resp: Other: Clear to auscultation bilaterally no rales rhonchi or wheezes Cardio: Other: No S4; positive S1-S2; no S3 murmurs rubs or gallops GI: Other: Soft nontender nondistended normoactive bowel sounds Extrem: Other: No edema bilaterally Objective Data Active Medications Acetaminophen (Acetaminophen 325 Mg Tablet) 650 mg PO Q6H PRN PRN Reason: Pain, Mild (Pain Scale 1-3) Last Admin: 08/12/23 08:04 Dose: 650 mg Documented By: MIRANDA Al Hydroxide/Mg Hydroxide (Magnesium Hydrox/Alum Hydrox 30 Ml Oral.Susp) 30 ml PO Q4H PRN PRN Reason: Heartburn/Nausea Albuterol Sulfate (Albuterol Sulfate 90 Mcg 8 Gm Inhaler) 2 puff INHALE Q6H PRN PRN Reason: Bronchodilation Amitriptyline HCl (Amitriptyline Hcl 10 Mg Tablet) 10 mg PO BEDTIME [facility] Last Admin: 08/11/23 19:56 Dose: 10 mg Documented By: NATALIE Aspirin (Aspirin Enteric Coated 81 Mg Tablet.) 81 mg PO DAILY [facility] Last Admin: 08/12/23 08:00 Dose: 81 mg Documented By: MIRANDA Atorvastatin Calcium (Atorvastatin Calcium 80 Mg Tablet) 80 mg PO BEDTIME [facility] Last Admin: 08/11/23 19:56 Dose: 80 mg Documented By: NATALIE Diphenhydramine HCl (Diphenhydramine Hcl 25 Mg Capsule) 25 mg PO DAILY [facility] Last Admin: 08/12/23 08:00 Dose: 25 mg Documented By: MIRANDA Docusate Sodium (Docusate Sodium 100 Mg Capsule) 100 mg PO BID [facility] Last Admin: 08/12/23 08:00 Dose: 100 mg Documented By: MIRANDA Ferrous Sulfate (Ferrous Sulfate 324 Mg Tablet.) 324 mg PO DAILY [facility] Last Admin: 08/12/23 08:00 Dose: 324 mg Documented By: MIRANDA Heparin Sodium (Porcine) (Heparin Sodium,Porcine 5,000 Unit/Ml Vial) 5,000 unit SUBCUT Q12H [facility] Last Admin: 08/12/23 06:07 Dose: 5,000 unit Documented By: NATALIE Levofloxacin (Levaquin) 750 mg in 150 mls @ 100 mls/hr IV Q48H [facility] Last Infusion: 08/11/23 12:18 Dose: Infused Documented By: ADRIANNE Melatonin (Melatonin 3 Mg Tablet) 6 mg PO BEDTIME PRN PRN Reason: Insomnia Last Admin: 08/12/23 00:08 Dose: 6 mg Documented By: NATALIE Metoprolol Tartrate (Metoprolol Tartrate 25 Mg Tablet) 25 mg PO BID [facility]; Protocol Last Admin: 08/12/23 08:00 Dose: 25 mg Documented By: MIRANDA Ondansetron HCl (Ondansetron Hcl 4 Mg/2 Ml Vial) 4 mg IVPUSH Q8H PRN PRN Reason: Nausea and Vomiting Sodium Chloride (0.9 % Sodium Chloride Flush 3 Ml Syringe) 3 ml IVFLUSH QSHIFT [facility] Last Admin: 08/12/23 08:00 Dose: 3 ml Documented By: MIRANDA Labs 08/12/23 05:59 08/12/23 05:59 Labs: Laboratory Results - last 24 hr 08/12/23 05:59 MCV 95.0 MCH 31.0 MCHC 32.6 RDW 14.1 Plt Count 239 MPV 11.1 Immature Gran % (Auto) 0.7 H Neut % (Auto) 45.4 Lymph % (Auto) 35.6 [place] % (Auto) 10.2 Eos % (Auto) 7.5 H Baso % (Auto) 0.6 Lymph # (Auto) 2.6 [place] # (Auto) 0.7 Eos # (Auto) 0.5 H Baso # (Auto) 0.0 Abs Immat Gran (auto) 0.05 H Absolute Neuts (auto) 3.3 Absolute Nucleated RBC 0.000 Nucleated RBC % (auto) 0.0 Anion Gap 13 Estim Creat Clear Calc 43.1 Estimated GFR 57 Fasting Glucose 107 H Calcium 8.5 Total Bilirubin 0.3 AST 57 H ALT 43 H Alkaline Phosphatase 84 Total Protein 5.9 L Albumin 2.9 L Assessment and Plan (1) Acute UTI: Status: Acute (2) Benign essential HTN: Status: Acute Plan 88 year-old female with a past medical history of aortic valve replacement, diastolic heart failure, mild dementia, anemia, asthma here with generalized weakness, lower abdominal pain associated with nausea vomiting, decreased by mouth intake, patient denied associated diarrhea patient is a resident of assisted living facility blood work in the ED showed a WBC of 11.4 hemoglobin 9.1 urinalysis analysis positive for 3+ leukocyte 4+ bacteria abdominal CT scan showed mild mucosal hyperemia of the urinary bladder concerning for cystitis. 1. UTI (E coli pansensitive) -IV Levaquin (4) -switch to p.o. upon DC -blood cultures pending... Done 08/11/2023 2.Hypertension -acceptable control on current therapies -adjust as indicated 3. Hyperlipidemia - Atorvastatin Full code Lovenox Requires ongoing hospitalization for IV antibiotics to treat UTI; blood cultures pending. Will need short-term rehab Quality Stroke Does the patient have a stroke diagnosis?: No VTE Prior VTE?: No VTE Risk Level:: Medical - moderate - high VTE Device Contraindication: N/A - Device Ordered VTE Drug Contraindication: N/A - Med Ordered
[2023-08-12 15:28] VITALS: BP 139/60; PULSE 72; RESP 18; TEMP 36; O2SAT 97
[2023-08-12 19:51] VITALS: BP 125/62; PULSE 74; RESP 18; TEMP 37; O2SAT 93
[2023-08-12] MEDS: Amitriptyline HCl 10 MG TABLET PO (20:30)
[2023-08-12] MEDS: Atorvastatin Calcium 80 MG TABLET PO (20:30)
[2023-08-13 04:00] VITALS: BP 142/65; PULSE 82; RESP 16; TEMP 37.2; O2SAT 94
[2023-08-13] MEDS: Heparin Sodium,Porcine 5,000 UNIT/ML VIAL 5000 UNIT SUBCUT (06:13)
[2023-08-13 06:31] LABS: MANUAL DIFF FLAG NO
[2023-08-13 06:56] LABS: Alanine Aminotransferase 41 U/L (0-31); Alkaline Phosphatase 83 U/L (39-117); Anion Gap 12 (12-20); Aspartate Amino Transferase 56 U/L (5-31); Basophils Absolute Auto 0.1 X10*3/uL (0.0-0.2); Basophils Percent Auto 0.8 % (0-2); Bilirubin Total 0.2 mg/dL (0.0-1.0); Blood Urea Nitrogen 24 mg/dL (9-16); Calcium 8.9 mg/dL (8.4-10.2); Carbon Dioxide 19 mmol/L (22-29); Chloride 110 mmol/L (96-108); Creatinine Clr Calc Pharmacy 39.3; Eosinophils Absolute Auto 0.5 X10*3/uL (0.0-0.4); Eosinophils Percent Auto 5.3 % (0-4); Estimated Glomerular Filt Rate 51; Glucose Fasting 101 mg/dL (60-99); Hematocrit 22.1 % (37.0-47.0); Hemoglobin 7.3 g/dl (12.0-16.0); Imm Gran Abs Auto 0.05 X10*3/uL (0.00-0.03); Imm Gran Pct Auto 0.5 % (0.0-0.4); Lymphocytes Absolute Auto 3.1 X10*3/uL (1.2-4.9); Lymphocytes Percent Auto 33.4 % (20-40); Mean Corpuscular Hemoglobin 31.2 pg (27.0-33.0); Mean Corpuscular Volume 94.4 fL (80.0-98.0); Mean Platelet Volume 10.5 fL (9.4-12.3); Monocytes Percent Auto 10.3 % (2-11); Neutrophils Absolute Auto 4.6 x10*3/uL (2.0-8.3); Neutrophils Percent Auto 49.7 % (45-73); Platelet Count 291 X10*3/uL (160-400); Potassium 3.9 mmol/L (3.3-5.1); Red Blood Count 2.34 X10*6/uL (4.20-5.50); Red Cell Distribution Width 14.4 % (11.0-16.0); Sodium 137 mmol/L (135-145); White Blood Count 9.2 X10*3/uL (4.8-10.8)
[2023-08-13 07:35] VITALS: BP 152/67; PULSE 70; RESP 17; TEMP 36.1; O2SAT 96
[2023-08-13 07:40] LABS: Immature Retic Fraction 31.2 % (3.0-15.9); Retic HGB Equivalent 31.7 pg (30.0-35.0); Reticulocyte Percent 3.3 % (0.5-1.8); Reticulocytes Absolute 0.077 X10*6/uL (0.026-0.095)
[2023-08-13 07:44] LABS: Iron 30 mcg/dL (30-160); Lactate Dehydrogenase 363 U/L (122-220); Percent Iron Saturation 17 % (15-50); Total Iron Binding Capacity 181 mcg/dL (228-428); Unsaturated Iron Binding 151 ug/dL
[2023-08-13 08:05] LABS: Ferritin 661 ng/mL (10-250)
--- NOTE | 2023-08-13 08:08 | PM.GICN ---
History of Present Illness Data of Consult Service Date: 08/13/23 Requesting physician: May Jimenez Primary Care Provider: Michael Shepard MD [facility] Reason for consult: anemia FOBT+ 88 YF with aortic valve replacement, diastolic heart failure, mild dementia, breast cancer, anemia, CAD, osteoporosis, asthma, s/p TAVR, and macular degenration seen at [facility] on 08/07/23 with generalized weakness and lower abdominal pain associated with nausea and vomiting for the past several days. Pt reported decreased oral intake, decreased activity level & generalized sense of malaise. Pt described the location of the pain initially in the upper abdomen and later moved to the lower abdomen and pain with urination. Pt went [place] [facility] [place], had labs performed and left without being seen due to a long wait. She continued to feel unwell and went to an urgent care today from where she was sent to the hospital for further evaluation and management. Pt denied any associated diarrhea, constipation or trauma. She resides in an assisted living facility & is ambulatory at baseline. Lab evealuation in the ER showed leucocytosis of 11.4 k/mm3, anemia with a hemoglobin of 9.1 g/dl. Urinalysis was positive for 3+ leukocyte esterase and >50 WBC/hpf with 4+ bacteria. An abdominal CT scan done showed mild mucosal hyperemia of the urinary bladder concerning for cystitis. A diagnosis of UTI was made and she was started on IV Doxycycline and admission requested. Pt states I am always anemic She notes her abd pain has resolved. Pt denies symptoms of nausea, vomiting, heartburn, dysphagia or chest pain. She admits to getting short of breath when she climbs stairs. She uses a walker and is able to climb stairs slowly Patient reports she has regular bowel movements and can get constipated once in a while. She denies any changes in her weight recently. Patient takes wine 2 to 3 times a week and denies smoking. He an aspirin daily and denies being on anticoagulation. 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 Pt hopes to return to her house She has 2 children assist her 08/07/[address] SCAN SHOWED: * Mild mucosal hyperemia of the urinary bladder could represent cystitis. Please correlate with urinalysis. * Cholelithiasis and gallbladder distention similar to prior. There is a tiny nonobstructive stone in the distal common bile duct, without associated dilatation. * Incidental 1.2 cm cyst in the pancreatic tail. Recommend follow-up MRI/MRCP in one year, if clinically indicated (given patient age). * Mild constipation. PAST GI HISTORY BY REVIEW OF MEDICAL RECORDS: 11/2017 PT WAS SEEN BY DR BURTON FOR ABD PAIN AND ABNORMAL ABD/PELVIC CT SCAN: 82 yo female had noted passing darker red blood on Thursday. She had an episode of constipation with straining. She was in the bathroom for 2 hours. She passed some stool. Then she passed blood. She had seen her PCP, went home. Then was called and told to go to the ER. Denies any recent change in diet. Had no fever. She did have pain. She had a colon[place] [facility] [place] 10[place] ago([place]--told it was negative. She does have a tendency for constipation. She has never had this type of problem before. ASSESSMENT & PLAN This pattern is consistent with acute ischemic colitis. Must rule out IBD and infectious colitis. She has not moved her bowels yet since admission. She can have full liquid diet as tolerated. Invasive testing is usually held for 6-8 weeks after onset unless patient becomes hemodynamically unstable. Baseline Hgb seems to be between 10.7--> 11.4. The HGB now is 9.2 (A Change.) Will check CRP. Also suggest repeating TP/Alb in AM. Review of [facility] Labs and testing: ECHO-06/12/17--Mild Aortic Stenosis. PFT's 2012--NO COPD; Moderate Restrictive Lung Disease. 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 Patient had been seen in followup 11/23/17-To be started on Extended release Nifedipine to see if it will help decrease small vessel vasoconstriction. Review of Systems Review of Systems: Yes all other systems are reviewed and are negative [facility] Past Medical History Medical History Breast cancer Screening for breast cancer History of heart attack Atherosclerotic cardiovascular disease Precordial chest pain Chest pain Coronary artery disease Anemia Aortic stenosis, severe Primary osteoarthritis involving multiple joints Osteoporosis Acute laryngitis Benign essential HTN Asthma Allergic rhinitis Family History Family History Father Hypertension Mother Thyroid cancer Sister Breast cancer Surgical History Surgical History S/P TAVR (transcatheter aortic valve replacement) S/P TAVR (transcatheter aortic valve replacement) S/P cardiac catheterization History of hand surgery History of heart artery stent History of laminectomy History of kyphoplasty History of cataract surgery History of D&C Social History Social History Household Members: Other Household Members Other:: assisted living [facility] Housing: Assisted Living Facility Do you presently have visiting nurse or other home services: Yes Alcohol intake: never Patient Tobacco Use Status: Never used Tobacco e-Cigarette/Vaping Use: Never Used Second Hand Smoke Exposure: No Advance Directives Date on File: 02/06/21 service: No Current occupational status: retired Cognitive needs: Yes (walker/cane) Hearing needs: Yes (hearing aide) Vision needs: Yes (glasses) Meds Allergies Allergy/AdvReac Type Severity Reaction Status Date / Time meperidine [From Demerol] Allergy Severe Nausea and Verified 08/07/23 19:27 Vomiting amoxicillin [AMOXICILLIN] Allergy Intermediate Rash Verified 08/07/23 19:27 cephalexin Allergy Intermediate Itching Verified 08/07/23 19:27 erythromycin base Allergy Intermediate Itching Verified 08/07/23 19:27 meloxicam Allergy Intermediate Abdominal Verified 08/07/23 19:27 Pain nitrofurantoin Allergy Intermediate Rash Verified 08/07/23 19:27 [From Macrobid] Penicillins Allergy Intermediate Rash Verified 08/07/23 19:27 Sulfa (Sulfonamide Allergy Intermediate Rash Verified 08/07/23 19:27 Antibiotics) [SULFA(SULFONAMIDE ANTIBIOTICS)] tramadol Allergy Intermediate Nausea and Verified 08/07/23 19:27 Vomiting codeine [CODEINE] AdvReac Intermediate Nausea Verified 08/07/23 19:27 Active Medications: Current Medications Acetaminophen (Acetaminophen 325 Mg Tablet) 650 mg PO Q6H PRN PRN Reason: Pain, Mild (Pain Scale 1-3) Last Admin: 08/12/23 15:59 Dose: 650 mg Al Hydroxide/Mg Hydroxide (Magnesium Hydrox/Alum Hydrox 30 Ml Oral.Susp) 30 ml PO Q4H PRN PRN Reason: Heartburn/Nausea Albuterol Sulfate (Albuterol Sulfate 90 Mcg 8 Gm Inhaler) 2 puff INHALE Q6H PRN PRN Reason: Bronchodilation Amitriptyline HCl (Amitriptyline Hcl 10 Mg Tablet) 10 mg PO BEDTIME [facility] Last Admin: 08/12/23 20:30 Dose: 10 mg Aspirin (Aspirin Enteric Coated 81 Mg Tablet.Dr) 81 mg PO DAILY [facility] Last Admin: 08/12/23 08:00 Dose: 81 mg Atorvastatin Calcium (Atorvastatin Calcium 80 Mg Tablet) 80 mg PO BEDTIME [facility] Last Admin: 08/12/23 20:30 Dose: 80 mg Diphenhydramine HCl (Diphenhydramine Hcl 25 Mg Capsule) 25 mg PO DAILY [facility] Last Admin: 08/12/23 08:00 Dose: 25 mg Docusate Sodium (Docusate Sodium 100 Mg Capsule) 100 mg PO BID [facility] Last Admin: 08/12/23 20:30 Dose: 100 mg Ferrous Sulfate (Ferrous Sulfate 324 Mg Tablet.Dr) 324 mg PO DAILY [facility] Last Admin: 08/12/23 08:00 Dose: 324 mg Heparin Sodium (Porcine) (Heparin Sodium,Porcine 5,000 Unit/Ml Vial) 5,000 unit SUBCUT Q12H [facility] Last Admin: 08/13/23 06:13 Dose: 5,000 unit Levofloxacin (Levaquin) 750 mg in 150 mls @ 100 mls/hr IV Q48H [facility] Last Infusion: 08/11/23 12:18 Dose: Infused Melatonin (Melatonin 3 Mg Tablet) 6 mg PO BEDTIME PRN PRN Reason: Insomnia Last Admin: 08/12/23 00:08 Dose: 6 mg Metoprolol Tartrate (Metoprolol Tartrate 25 Mg Tablet) 25 mg PO BID [facility]; Protocol Last Admin: 08/12/23 20:30 Dose: 25 mg Ondansetron HCl (Ondansetron Hcl 4 Mg/2 Ml Vial) 4 mg IVPUSH Q8H PRN PRN Reason: Nausea and Vomiting Pantoprazole Sodium (Pantoprazole Sodium 40 Mg/10 Ml Vial) 40 mg IVPUSH BID@0630,1630 [facility] Sodium Chloride (0.9 % Sodium Chloride Flush 3 Ml Syringe) 3 ml IVFLUSH QSHIFT [facility] Last Admin: 08/13/23 07:43 Dose: Not Given Home Medications Medication Instructions Recorded Confirmed Last Taken Type lysine 1,000 mg tablet 1,000 mg PO DAILY@1700 12/17/20 08/08/23 Unknown History calcium carbonate 600 mg calcium 600 mg PO DAILY@1700 12/31/20 08/08/23 Unknown History (1,500 mg) tablet cod liver oil 1 cap PO DAILY 12/31/20 08/08/23 Unknown History ferrous sulfate 325 mg (65 mg 325 mg PO DAILY 12/31/20 08/08/23 03/11/23 History iron) tablet fexofenadine 180 mg tablet 180 mg PO BEDTIME 12/31/20 08/08/23 Unknown History vitamin E succinate 268 mg (400 400 unit PO DAILY 12/31/20 08/08/23 Unknown History unit) tablet cyanocobalamin (vitamin B-12) 1,000 mcg PO DAILY 02/06/21 08/08/23 Unknown History 1,000 mcg tablet pyridoxine (vitamin B6) 100 mg 100 mg PO DAILY 02/06/21 08/08/23 Unknown History tablet cholecalciferol (vitamin D3) 25 25 mcg PO DAILY 11/05/21 08/08/23 03/11/23 History mcg (1,000 unit) capsule acetaminophen 500 mg tablet 1,000 mg PO Q6H PRN Pain 05/18/23 08/08/23 Unknown History (Tylenol Extra Strength) nifedipine 30 mg tablet,extended 30 mg PO DAILY 05/18/23 08/08/23 Unknown History release albuterol sulfate 90 mcg/actuation 2 puff inhalation Q6H PRN 07/08/23 08/08/23 Unknown History aerosol inhaler (ProAir HFA) Bronchodilation alendronate 70 mg tablet 70 mg PO MO@0908/08/23 08/08/23 Unknown History ascorbic acid (vitamin C) 500 mg 500 mg PO DAILY@1700 08/08/23 08/08/23 Unknown History tablet (Vitamin C) atorvastatin 80 mg tablet 80 mg PO BEDTIME 08/08/23 08/08/23 Unknown History diphenhydramine HCl 25 mg capsule 25 mg PO DAILY 08/08/23 08/08/23 Unknown History (Benadryl) glucosam 750 mg-chondroi 100 1 tab PO BID 08/08/23 08/08/23 Unknown History mg-hyalur 1.65 mg-CF borate 108 mg tablet (Move Free PictureMenu) lidocaine 4 % topical patch 1 patch topical BID 08/08/23 08/08/23 Unknown History vit C 250 mg-vit E 90 mg-zinc 40 1 tab PO BID 08/08/23 08/08/23 Unknown History mg-copper 1 [id number] capsule (PreserVision AREDS-2) Physical Exam Vital Signs: Vital Signs: Last Vital Signs Temp 96.9 F 08/13/23 07:35 Pulse 70 08/13/23 07:35 Resp 17 08/13/23 07:35 BP 152/67 H 08/13/23 07:35 Pulse Ox 96 08/13/23 07:35 O2 Del Method Room Air 08/13/23 07:35 BMI result Body Mass Index 27.5 Const: Other: Awake alert no acute distress Resp: Other: Clear to auscultation bilaterally no rales rhonchi or wheezes Cardio: Other: No S4; positive S1-S2; no S3 murmurs rubs or gallops GI: Other: Soft nontender nondistended normoactive bowel sounds Extrem: Other: No edema bilaterally Results Labs 08/15/23 05:28 08/13/23 06:13 Labs: Short CBC 08/13/23 Range/Units 06:13 WBC 9.2 (4.8-10.8) X10*3/uL Hgb 7.3 L (12.0-16.0) g/dl Hct 22.1 L (37.0-47.0) % Plt Count 291 (160-400) X10*3/uL BMP 08/13/23 06:13 Sodium 137 Potassium 3.9 Chloride 110 H Carbon Dioxide 19 L BUN 24 H Creatinine 1.02 Calcium 8.9 Liver Function 08/13/23 Range/Units 06:13 Total Bilirubin 0.2 (0.0-1.0) mg/dL AST 56 H (5-31) U/L ALT 41 H (0-31) U/L Alkaline Phosphatase 83 (39-117) U/L Albumin 3.0 L (3.5-5.0) g/dL Microbiology Microbiology Results: Microbiology 08/11/23 11:20 Blood - Venous Blood Culture - Preliminary No growth after 24 hours. 08/11/23 11:20 Blood - Venous Blood Culture - Preliminary No growth after 24 hours. 08/07/23 20:42 Urine clean catch - Urine rich top Urine Culture - Final Escherichia coli Assessment and Plan (1) Heme positive stool: Status: Acute (2) Anemia: Qualifiers: Anemia type: unspecified type Qualified Code(s): D64.9 - Anemia, unspecified Status: Acute Plan 88 YF with aortic valve replacement, diastolic heart failure, mild dementia, breast cancer, anemia, CAD, osteoporosis, asthma, s/p TAVR, and macular degenration seen at [facility] on 08/07/23 with generalized weakness and lower abdominal pain associated with nausea and vomiting for the past several days. abdominal CT scan done showed mild mucosal hyperemia of the urinary bladder concerning for cystitis. She notes her abd pain has resolved since she was treated with antibiotics. Labs showed H&H of 9.1 & 27.4 on admission and decreased to 7.3 & 21.8 on 08/10/23 and has been stable since then. Iron studies suggestive of anemia of chronic disease Stool Hemoccult was positive and patient denies any overt bleeding. Per review of her medical records, patient had a [place] [facility] [place]--told it was negative. RECOMMENDATIONS: 1. Agree with IV antiemetics and PPI 2. Further evaluation of anemia and heme Positive stools with EGD and colonoscopy was discussed with the patient. Patient refused and stated she is not ready to make a decision. She may be willing to reconsider if she has recurrent anemia in the future. Pt refused to receive blood transfusions. ADDENDUM: Pt was discharged on 08/15/23: 88yo F [facility] resident with hx TAVR, diastolic HF, chronic anemia, asthma, and mild dementia presenting with generalized weakness/abd pain/nausea/vomiting/decreased PO intake, found to have UTI and admitted to the medical-surgical floor. She was treated with levofloxacin given allergies. Urine culture grew kowalski-sensitive E. coli. She was found to have worsening normocytic anemia due to chronic illness. FOBT+ was positive but she declined inpatient GI evaluation. She did get transfused 1 unit of packed red blood cells with improvement. She was discharged to short-term rehabilitation. 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 which may be followed up with MRI/MRCP in 1 year if desired.] Procedures Date of Service Date of Service: 08/23/23
[2023-08-13] MEDS: diphenhydrAMINE HCL 25 MG CAPSULE PO (09:16)
[2023-08-13] MEDS: levoFLOXacin/D5W 750 MG/150 ML PIGGYBACK 100 MG IV (09:17)
[2023-08-13] MEDS: Metoprolol Tartrate 25 MG TABLET PO ×2 (09:17→20:31)
[2023-08-13] MEDS: Pantoprazole Sodium 40 MG/10 ML VIAL IVPUSH ×2 (09:17→16:36)
[2023-08-13] MEDS: Docusate Sodium 100 MG CAPSULE PO ×2 (09:17→20:31)
[2023-08-13] MEDS: Ferrous Sulfate 324 MG TABLET.DR PO (09:17)
[2023-08-13] MEDS: Aspirin Enteric Coated 81 MG TABLET.DR PO (09:17)
[2023-08-13 11:00] LABS: Folate 5.9 ng/mL (> or = 4.0); Vitamin B12 1664 pg/mL (200-900)
[2023-08-13 11:11] VITALS: BP 152/67; PULSE 70; O2SAT 96
--- NOTE | 2023-08-13 12:45 | HO.PM.IMPN ---
Subjective Subjective Date of Service: 08/13/23 Interval History: feels weak but denies lightheadedness or dyspnea Review of Systems Review of Systems: Yes all other systems are reviewed and are negative Physical Exam Vital Signs: Vital Signs: Last Vital Signs Temp 96.9 F 08/13/23 07:35 Pulse 70 08/13/23 11:11 Resp 17 08/13/23 07:35 BP 152/67 H 08/13/23 11:11 Pulse Ox 96 08/13/23 11:11 O2 Del Method Room Air 08/13/23 07:35 BMI result Body Mass Index 27.5 Gen: in no acute distress HEENT: sclera anicteric, moist mucus membranes Neck: supple Lungs: clear to auscultation bilaterally Heart: regular rate and rhythm, no murmurs Abd: soft, non-tender, non-distended Ext: no edema Skin: warm/well-perfused Neuro: alert and oriented x3, no focal findings Psych: appropriate affect Objective Data Active Medications Acetaminophen (Acetaminophen 325 Mg Tablet) 650 mg PO Q6H PRN PRN Reason: Pain, Mild (Pain Scale 1-3) Last Admin: 08/12/23 15:59 Dose: 650 mg Documented By: MIRANDA Al Hydroxide/Mg Hydroxide (Magnesium Hydrox/Alum Hydrox 30 Ml Oral.Susp) 30 ml PO Q4H PRN PRN Reason: Heartburn/Nausea Albuterol Sulfate (Albuterol Sulfate 90 Mcg 8 Gm Inhaler) 2 puff INHALE Q6H PRN PRN Reason: Bronchodilation Amitriptyline HCl (Amitriptyline Hcl 10 Mg Tablet) 10 mg PO BEDTIME [facility] Last Admin: 08/12/23 20:30 Dose: 10 mg Documented By: NATALIE Aspirin (Aspirin Enteric Coated 81 Mg Tablet.) 81 mg PO DAILY [facility] Last Admin: 08/13/23 09:17 Dose: 81 mg Documented By: ARTIE Atorvastatin Calcium (Atorvastatin Calcium 80 Mg Tablet) 80 mg PO BEDTIME [facility] Last Admin: 08/12/23 20:30 Dose: 80 mg Documented By: NATALIE Diphenhydramine HCl (Diphenhydramine Hcl 25 Mg Capsule) 25 mg PO DAILY [facility] Last Admin: 08/13/23 09:16 Dose: 25 mg Documented By: ARTIE Docusate Sodium (Docusate Sodium 100 Mg Capsule) 100 mg PO BID [facility] Last Admin: 08/13/23 09:17 Dose: 100 mg Documented By: ARTIE Ferrous Sulfate (Ferrous Sulfate 324 Mg Tablet.) 324 mg PO DAILY [facility] Last Admin: 08/13/23 09:17 Dose: 324 mg Documented By: ARTIE Heparin Sodium (Porcine) (Heparin Sodium,Porcine 5,000 Unit/Ml Vial) 5,000 unit SUBCUT Q12H [facility] Last Admin: 08/13/23 06:13 Dose: 5,000 unit Documented By: NATALIE Levofloxacin (Levaquin) 750 mg in 150 mls @ 100 mls/hr IV Q48H [facility] Last Infusion: 08/13/23 10:47 Dose: Infused Documented By: ARTIE Melatonin (Melatonin 3 Mg Tablet) 6 mg PO BEDTIME PRN PRN Reason: Insomnia Last Admin: 08/12/23 00:08 Dose: 6 mg Documented By: NATALIE Metoprolol Tartrate (Metoprolol Tartrate 25 Mg Tablet) 25 mg PO BID [facility]; Protocol Last Admin: 08/13/23 09:17 Dose: 25 mg Documented By: ARTIE Ondansetron HCl (Ondansetron Hcl 4 Mg/2 Ml Vial) 4 mg IVPUSH Q8H PRN PRN Reason: Nausea and Vomiting Pantoprazole Sodium (Pantoprazole Sodium 40 Mg/10 Ml Vial) 40 mg IVPUSH BID@0630,1630 [facility] Last Admin: 08/13/23 09:17 Dose: 40 mg Documented By: ARTIE Sodium Chloride (0.9 % Sodium Chloride Flush 3 Ml Syringe) 3 ml IVFLUSH QSHIFT [facility] Last Admin: 08/13/23 07:43 Dose: Not Given Documented By: ARTIE Non-Admin Reason: See Note Labs 08/13/23 06:13 08/13/23 06:13 Labs: Laboratory Results - last 24 hr 08/13/23 08/13/23 06:13 09:02 MCV 94.4 MCH 31.2 MCHC 33.0 RDW 14.4 Plt Count 291 MPV 10.5 Immature Gran % (Auto) 0.5 H Neut % (Auto) 49.7 Lymph % (Auto) 33.4 Coles % (Auto) 10.3 Eos % (Auto) 5.3 H Baso % (Auto) 0.8 Lymph # (Auto) 3.1 Coles # (Auto) 1.0 Eos # (Auto) 0.5 H Baso # (Auto) 0.1 Abs Immat Gran (auto) 0.05 H Absolute Neuts (auto) 4.6 Absolute Nucleated RBC 0.000 Nucleated RBC % (auto) 0.0 Absolute Retic 0.077 Percent Retic 3.3 H Immature Retic Fraction 31.2 H Retic Hgb Equivalent 31.7 Anion Gap 12 Estim Creat Clear Calc 39.3 Estimated GFR 51 Fasting Glucose 101 H Calcium 8.9 Iron 30 TIBC 181 L % Saturation 17 Unsat Iron Binding 151 Ferritin 661 H Total Bilirubin 0.2 AST 56 H ALT 41 H Alkaline Phosphatase 83 Lactate Dehydrogenase 363 H Total Protein 6.0 L Albumin 3.0 L Vitamin B12 1664 H Folate 5.9 Blood Type A Positive Antibody Screen NEGATIVE Microbiology Microbiology Results: Microbiology 08/11/23 11:20 Blood Culture - Preliminary Blood - Venous No growth after 24 hours. 08/11/23 11:20 Blood Culture - Preliminary Blood - Venous No growth after 24 hours. Assessment and Plan (1) Acute UTI: Status: Acute (2) Benign essential HTN: Status: Acute Plan d6 88yo F [facility] resident with hx TAVR, diastolic HF, chronic anemia, asthma, mild dementia presenting with generalized weakness/abd pain/nausea/vomiting/decreased PO intake found to have UTI UTI, E coli pansensitive - levofloxacin d5/10, blood cultures negative chronic normocytic anemia - likely ACD, FOBT+ but Hb stable, declines inpt GI evaluation or transfusion, should check CBC in 1 week. continue Fe. empiric PPI. HTN - continue metoprolol HLD - continue statin VTE ppx - SCDs, d/c LMWH due to anemia dispo - anticipate STR In my clinical judgment, the patient requires continued inpatient hospitalization for the following reasons: placement Daughter updated at bedside. Total time managing care of this patient today: 35 minutes. Quality Stroke Does the patient have a stroke diagnosis?: No VTE Prior VTE?: No VTE Risk Level:: Medical - moderate - high VTE Device Contraindication: N/A - Device Ordered VTE Drug Contraindication: N/A - Med Ordered
[2023-08-13] MEDS: Acetaminophen 325 MG TABLET 650 MG PO ×2 (12:55→20:32)
[2023-08-13 15:01] VITALS: BP 122/57; PULSE 72; RESP 18; TEMP 36.5; O2SAT 98
--- NOTE | 2023-08-13 16:05 | MHC.CM.PN ---
DP: PT HAS ACCEPTED A BED AT [facility] . CENTER HAS GONE FOR AUTH AND NO AUTH OBTAINED AT THIS TIME. HCP/DAUGHTER BEST AT BEDSIDE AND AWARE OF PLAN. CM WILL CONTINUE TO FOLLOW AND AWAIT INSURANCE AUTH.
[2023-08-13 19:33] VITALS: BP 134/64; PULSE 76; RESP 18; TEMP 37.1; O2SAT 98
[2023-08-13] MEDS: Melatonin 3 MG TABLET 6 MG PO (20:30)
[2023-08-13] MEDS: Amitriptyline HCl 10 MG TABLET PO (20:31)
[2023-08-13] MEDS: Atorvastatin Calcium 80 MG TABLET PO (20:31)
[2023-08-13] MEDS: 0.9 % Sodium Chloride Flush 3 ML SYRINGE IVFLUSH (20:39)
[2023-08-14] VITALS (9 sets, daily range): BP systolic 116–137; BP diastolic 58–63; PULSE 60–78; RESP 16–20; TEMP 35.9–36.8; O2SAT 95–98
[2023-08-14] MEDS: Acetaminophen 325 MG TABLET 650 MG PO ×2 (03:50→10:39)
[2023-08-14] MEDS: Pantoprazole Sodium 40 MG/10 ML VIAL IVPUSH ×2 (06:05→17:27)
[2023-08-14 07:15] LABS: Hematocrit 21.8 % (37.0-47.0); Mean Corpuscular HGB Conc 31.7 g/dl (31.0-35.0); Mean Corpuscular Hemoglobin 30.4 pg (27.0-33.0); Platelet Count 308 X10*3/uL (160-400); Red Blood Count 2.27 X10*6/uL (4.20-5.50); Red Cell Distribution Width 14.1 % (11.0-16.0); White Blood Count 7.8 X10*3/uL (4.8-10.8)
[2023-08-14 07:57] LABS: Hemoglobin 6.9 g/dl (12.0-16.0)
[2023-08-14] MEDS: Docusate Sodium 100 MG CAPSULE PO ×2 (09:48→20:34)
[2023-08-14] MEDS: Aspirin Enteric Coated 81 MG TABLET.DR PO (09:48)
[2023-08-14] MEDS: Ferrous Sulfate 324 MG TABLET.DR PO (09:48)
[2023-08-14] MEDS: Metoprolol Tartrate 25 MG TABLET PO ×2 (09:48→20:34)
[2023-08-14] MEDS: diphenhydrAMINE HCL 25 MG CAPSULE PO (09:49)
[2023-08-14] MEDS: 0.9 % Sodium Chloride Flush 3 ML SYRINGE IVFLUSH ×3 (09:49→20:34)
[2023-08-14] MEDS: Lidocaine 4 % Patch ADH..PATCH 1 PATCH TRANSDERMA (10:40)
--- NOTE | 2023-08-14 11:59 | P.PNIM_ITS ---
Subjective Subjective Date of Service: 08/14/23 Interval History: Hb 6.9, wishes to wait for daughter to discuss transfusion denies lightheadedness Review of Systems Review of Systems: Yes all other systems are reviewed and are negative Physical Exam 2 Vital Signs: Vital Signs: Last Vital Signs Temp 97.2 F 08/14/23 07:40 Pulse 67 08/14/23 10:50 Resp 20 08/14/23 07:40 BP 127/61 08/14/23 10:50 Pulse Ox 97 08/14/23 10:50 O2 Del Method Room Air 08/14/23 07:40 BMI result Body Mass Index 27.5 Gen: in no acute distress HEENT: sclera anicteric, moist mucus membranes Neck: supple Lungs: clear to auscultation bilaterally Heart: regular rate and rhythm, no murmurs Abd: soft, non-tender, non-distended Ext: no edema Skin: warm/well-perfused Neuro: alert and oriented x3, no focal findings Psych: appropriate affect Objective Data Active Medications Acetaminophen (Acetaminophen 325 Mg Tablet) 650 mg PO Q6H PRN PRN Reason: Pain, Mild (Pain Scale 1-3) Last Admin: 08/14/23 10:39 Dose: 650 mg Documented By: ESHA Al Hydroxide/Mg Hydroxide (Magnesium Hydrox/Alum Hydrox 30 Ml Oral.Susp) 30 ml PO Q4H PRN PRN Reason: Heartburn/Nausea Albuterol Sulfate (Albuterol Sulfate 90 Mcg 8 Gm Inhaler) 2 puff INHALE Q6H PRN PRN Reason: Bronchodilation Amitriptyline HCl (Amitriptyline Hcl 10 Mg Tablet) 10 mg PO BEDTIME [facility] Last Admin: 08/13/23 20:31 Dose: 10 mg Documented By: LEVY Aspirin (Aspirin Enteric Coated 81 Mg Tablet.Dr) 81 mg PO DAILY [facility] Last Admin: 08/14/23 09:48 Dose: 81 mg Documented By: TEZ Atorvastatin Calcium (Atorvastatin Calcium 80 Mg Tablet) 80 mg PO BEDTIME [facility] Last Admin: 08/13/23 20:31 Dose: 80 mg Documented By: LEVY Diphenhydramine HCl (Diphenhydramine Hcl 25 Mg Capsule) 25 mg PO DAILY [facility] Last Admin: 08/14/23 09:49 Dose: 25 mg Documented By: TZE Docusate Sodium (Docusate Sodium 100 Mg Capsule) 100 mg PO BID [facility] Last Admin: 08/14/23 09:48 Dose: 100 mg Documented By: TEZ Ferrous Sulfate (Ferrous Sulfate 324 Mg Tablet.Dr) 324 mg PO DAILY [facility] Last Admin: 08/14/23 09:48 Dose: 324 mg Documented By: TEZ Heparin Sodium (Porcine) (Heparin Sodium,Porcine 5,000 Unit/Ml Vial) 5,000 unit SUBCUT Q12H [facility] Last Admin: 08/13/23 06:13 Dose: 5,000 unit Documented By: NATALIE Levofloxacin (Levaquin) 750 mg in 150 mls @ 100 mls/hr IV Q48H [facility] Last Infusion: 08/13/23 10:47 Dose: Infused Documented By: ARTIE Lidocaine (Lidocaine 4 % Patch Adh..Patch) 1 patch TRANSDERMA DAILY [facility]; Protocol Last Admin: 08/14/23 10:40 Dose: 1 patch Documented By: ESHA Melatonin (Melatonin 3 Mg Tablet) 6 mg PO BEDTIME PRN PRN Reason: Insomnia Last Admin: 08/13/23 20:30 Dose: 6 mg Documented By: LEVY Metoprolol Tartrate (Metoprolol Tartrate 25 Mg Tablet) 25 mg PO BID [facility]; Protocol Last Admin: 08/14/23 09:48 Dose: 25 mg Documented By: TEZ Ondansetron HCl (Ondansetron Hcl 4 Mg/2 Ml Vial) 4 mg IVPUSH Q8H PRN PRN Reason: Nausea and Vomiting Pantoprazole Sodium (Pantoprazole Sodium 40 Mg/10 Ml Vial) 40 mg IVPUSH BID@0630,1630 [facility] Last Admin: 08/14/23 06:05 Dose: 40 mg Documented By: LEVY Sodium Chloride (0.9 % Sodium Chloride Flush 3 Ml Syringe) 3 ml IVFLUSH QSHIFT [facility] Last Admin: 08/14/23 09:49 Dose: 3 ml Documented By: TEZ Labs 08/14/23 05:58 08/13/23 06:13 Labs: Laboratory Results - last 24 hr 08/13/23 08/14/23 09:02 05:58 MCV 96.0 MCH 30.4 MCHC 31.7 RDW 14.1 Plt Count 308 MPV 11.0 Absolute Nucleated RBC 0.000 Nucleated RBC % (auto) 0.0 Blood Type A Positive Antibody Screen NEGATIVE Crossmatch See Detail Microbiology Microbiology Results: Microbiology 08/11/23 11:20 Blood Culture - Preliminary Blood - Venous No growth after 48 hours. 08/11/23 11:20 Blood Culture - Preliminary Blood - Venous No growth after 48 hours. Assessment and Plan (1) Acute UTI: Status: Acute (2) Benign essential HTN: Status: Acute Plan d7 88yo F [facility] resident with hx TAVR, diastolic HF, chronic anemia, asthma, mild dementia presenting with generalized weakness/abd pain/nausea/vomiting/decreased PO intake found to have UTI UTI, E coli pansensitive - levofloxacin d6/10, blood cultures negative acute/chronic normocytic anemia - likely ACD, FOBT+ but Hb stable, declines inpt GI evaluation or transfusion, should check CBC in 1 week. continue Fe. empiric PPI. recommend transfusion of 1u pRBCs but pt would like to discuss with her daughter 1st HTN - continue metoprolol HLD - continue statin VTE ppx - SCDs, d/c LMWH due to anemia dispo - anticipate STR In my clinical judgment, the patient requires continued inpatient hospitalization for the following reasons: transfusion, placement Total time managing care of this patient today: 35 minutes. Quality Stroke Does the patient have a stroke diagnosis?: No VTE Prior VTE?: No VTE Risk Level:: Medical - moderate - high VTE Device Contraindication: N/A - Device Ordered VTE Drug Contraindication: N/A - Med Ordered
--- NOTE | 2023-08-14 12:18 | MHC.CM.PN ---
[facility] AT [facility] HAS AUTH TO ACCEPT. PATIENT NEEDING IN UNIT OF PRBC, MONITOR, AND PLAN FOR THURSDAY DC
--- NOTE | 2023-08-14 12:22 | MHC.CM.PN ---
DAUGHTER, BEST @ [phone] CALLED AND IS NOW UPDATED WITH PLAN FOR DC TOMORROW.
[2023-08-14] MEDS: Atorvastatin Calcium 80 MG TABLET PO (20:34)
[2023-08-14] MEDS: Amitriptyline HCl 10 MG TABLET PO (20:34)
[2023-08-15 03:52] VITALS: BP 149/69; PULSE 75; RESP 18; TEMP 35.8; O2SAT 97
[2023-08-15] MEDS: Acetaminophen 325 MG TABLET 650 MG PO (04:03)
[2023-08-15] MEDS: Pantoprazole Sodium 40 MG/10 ML VIAL IVPUSH (05:21)
[2023-08-15 05:46] LABS: Hemoglobin 8.4 g/dl (12.0-16.0); Mean Corpuscular HGB Conc 33.6 g/dl (31.0-35.0); Mean Corpuscular Hemoglobin 30.7 pg (27.0-33.0); Mean Corpuscular Volume 91.2 fL (80.0-98.0); Mean Platelet Volume 9.7 fL (9.4-12.3); Platelet Count 280 X10*3/uL (160-400); Red Blood Count 2.74 X10*6/uL (4.20-5.50); Red Cell Distribution Width 14.7 % (11.0-16.0); White Blood Count 8.6 X10*3/uL (4.8-10.8)
[2023-08-15] MEDS: Lidocaine 4 % Patch ADH..PATCH 1 PATCH TRANSDERMA (08:39)
[2023-08-15] MEDS: 0.9 % Sodium Chloride Flush 3 ML SYRINGE IVFLUSH (08:39)
[2023-08-15] MEDS: diphenhydrAMINE HCL 25 MG CAPSULE PO (08:42)
[2023-08-15] MEDS: Ferrous Sulfate 324 MG TABLET.DR PO (08:42)
[2023-08-15] MEDS: Docusate Sodium 100 MG CAPSULE PO (08:42)
[2023-08-15] MEDS: Metoprolol Tartrate 25 MG TABLET PO (08:42)
[2023-08-15] MEDS: Aspirin Enteric Coated 81 MG TABLET.DR PO (08:42)
[2023-08-15] MEDS: levoFLOXacin/D5W 750 MG/150 ML PIGGYBACK 100 MG IV (08:44)
--- NOTE | 2023-08-15 09:12 | PM.DS ---
DS: Providers Provider Date of Service: 08/15/23 Date of admission: 08/08/23 06:28 Date of discharge: 08/15/23 Primary care physician: Michael Shepard MD Consults: 08/13/23 07:28 Consult to Gastroenterology Routine Consulting Provider: [facility] [place] Gastroenterology Services Reason for consultation: anemia FOBT+ DS: Diagnosis Discharge Diagnosis (1) Acute UTI: Status: Acute (2) Benign essential HTN: Status: Acute (3) Heme positive stool: Status: Acute (4) Acute on chronic anemia: Status: Acute DS: Summary Hospital Course Hospital Course: From the history and physical by the admitting hospitalist, Nba Oscar MD, 08/08/23: 88 year-old female with a past medical history of aortic valve replacement, diastolic heart failure, mild dementia, brast cancer, anemia, CAD, osteoporosis, asthma, s/p TAVR, and macular degenration who presented to the emergency room for evaluation of generalized weakness and lower abdominal pain with associated nausea and vomiting for several days now. This is associated with decreased oral intake, decreased activity level & generalized sense of malaise. The pain was initially in the upper abdomen but is now localized in the lower abdomen and is associated with pain with urination. She recently visited [facility] and had labs performed but ultimately left without being seen due to a long wait. She unfortunately continued to feel unwell and so went to an urgent care today from where she was sent to the hospital for further evaluation and management. She denies any associated diarrhea, constipation or trauma. She currently resides in an assisted living facility & is ambulatory at baseline. Initial blood work done in the emergency room was significant for a leucocytosis of 11.4 k/mm3, anemia with a hemoglobin of 9.1 g/dl. Urinalysis was positive for 3+ leukocyte esterase and >50 WBC/hpf with 4+ bacteria. An abdominal CT scan done showed mild mucosal hyperemia of the urinary bladder concerning for cystitis. A diagnosis of UTI was made and she was started on IV Doxycycline and admission requested. 88yo F RETIREMENT resident with hx TAVR, diastolic HF, chronic anemia, asthma, and mild dementia presenting with generalized weakness/abd pain/nausea/vomiting/decreased PO intake, found to have UTI and admitted to the medical-surgical floor. She was treated with levofloxacin given allergies. Urine culture grew kowalski-sensitive E. coli. She was found to have worsening normocytic anemia due to chronic illness. FOBT+ was positive but she declined inpatient GI evaluation. She did get transfused 1 unit of packed red blood cells with improvement. She was discharged to short-term rehabilitation. 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 which may be followed up with MRI/MRCP in 1 year if desired.] Time Attestation Discharge coordination time: Greater than 30 minutes Quality: Safe Use of Opioids Does Pt have an Active Cancer Diagnosis on the Problem List?: No Quality: Stroke Does the patient have a stroke diagnosis?: No Physical Exam Vital Signs: Vital Signs: Last Vital Signs Temp 96.4 F L 08/15/23 03:52 Pulse 75 08/15/23 03:52 Resp 18 08/15/23 03:52 BP 149/69 H 08/15/23 03:52 Pulse Ox 97 08/15/23 03:52 O2 Del Method Room Air 08/15/23 03:52 BMI result Body Mass Index 27.5 Gen: in no acute distress HEENT: sclera anicteric, moist mucus membranes Neck: supple Lungs: clear to auscultation bilaterally Heart: regular rate and rhythm, no murmurs Abd: soft, non-tender, non-distended Ext: no edema Skin: warm/well-perfused Neuro: alert and oriented x3, no focal findings Psych: appropriate affect DS: Data Data Completed and Pending Completed studies during hospitalization [Text1]: Laboratory Results WBC 8.6 X10*3/uL (4.8-10.8) 08/15/23 05:28 RBC 2.74 X10*6/uL (4.20-5.50) L D 08/15/23 05:28 Hgb 8.4 g/dl (12.0-16.0) L D 08/15/23 05:28 Hct 25.0 % (37.0-47.0) L 08/15/23 05:28 MCV 91.2 fL (80.0-98.0) 08/15/23 05:28 MCH 30.7 pg (27.0-33.0) 08/15/23 05:28 MCHC 33.6 g/dl (31.0-35.0) 08/15/23 05:28 RDW 14.7 % (11.0-16.0) 08/15/23 05:28 Plt Count 280 X10*3/uL (160-400) 08/15/23 05:28 MPV 9.7 fL (9.4-12.3) 08/15/23 05:28 Immature Gran % (Auto) 0.5 % (0.0-0.4) H 08/13/23 06:13 Neut % (Auto) 49.7 % (45-73) 08/13/23 06:13 Lymph % (Auto) 33.4 % (20-40) 08/13/23 06:13 [place] % (Auto) 10.3 % (2-11) 08/13/23 06:13 Eos % (Auto) 5.3 % (0-4) H 08/13/23 06:13 Baso % (Auto) 0.8 % (0-2) 08/13/23 06:13 Lymph # (Auto) 3.1 X10*3/uL (1.2-4.9) 08/13/23 06:13 [place] # (Auto) 1.0 X10*3/uL (0.1-1.2) 08/13/23 06:13 Eos # (Auto) 0.5 X10*3/uL (0.0-0.4) H 08/13/23 06:13 Baso # (Auto) 0.1 X10*3/uL (0.0-0.2) 08/13/23 06:13 Abs Immat Gran (auto) 0.05 X10*3/uL (0.00-0.03) H 08/13/23 06:13 Absolute Neuts (auto) 4.6 x10*3/uL (2.0-8.3) 08/13/23 06:13 Absolute Nucleated RBC 0.000 X10*3/uL (0.0-0.012) 08/15/23 05:28 Nucleated RBC % (auto) 0.0 /100WBC (0.0-0.2) 08/15/23 05:28 Smear Tech's Comments VERIFIED 08/07/23 20:26 Smear Path Review 08/14/23 05:58 Absolute Retic 0.077 X10*6/uL (0.026-0.095) 08/13/23 06:13 Percent Retic 3.3 % (0.5-1.8) H 08/13/23 06:13 Immature Retic Fraction 31.2 % (3.0-15.9) H 08/13/23 06:13 Retic Hgb Equivalent 31.7 pg (30.0-35.0) 08/13/23 06:13 Sodium 137 mmol/L (135-145) 08/13/23 06:13 Potassium 3.9 mmol/L (3.3-5.1) 08/13/23 06:13 Chloride 110 mmol/L (96-108) H 08/13/23 06:13 Carbon Dioxide 19 mmol/L (22-29) L 08/13/23 06:13 Anion Gap 12 (-20) 08/13/23 06:13 BUN 24 mg/dL (9-16) H 08/13/23 06:13 Creatinine 1.02 mg/dL (0.5-1.4) 08/13/23 06:13 Estim Creat Clear Calc 39.3 08/13/23 06:13 Estimated GFR 51 08/13/23 06:13 Random Glucose 101 mg/dL (60-115) 08/10/23 06:39 Fasting Glucose 101 mg/dL (60-99) H 08/13/23 06:13 Calcium 8.9 mg/dL (8.4-10.2) 08/13/23 06:13 Magnesium 2.1 mg/dL (1.6-2.6) 08/07/23 20:26 Iron 30 mcg/dL (30-160) 08/13/23 06:13 TIBC 181 mcg/dL (228-428) L 08/13/23 06:13 % Saturation 17 % (15-50) 08/13/23 06:13 Unsat Iron Binding 151 ug/dL 08/13/23 06:13 Ferritin 661 ng/mL (10-250) H 08/13/23 06:13 Total Bilirubin 0.2 mg/dL (0.0-1.0) 08/13/23 06:13 AST 56 U/L (5-31) H 08/13/23 06:13 ALT 41 U/L (0-31) H 08/13/23 06:13 Alkaline Phosphatase 83 U/L (39-117) 08/13/23 06:13 Lactate Dehydrogenase 363 U/L (122-220) H 08/13/23 06:13 Total Protein 6.0 g/dL (6.5-8.0) L 08/13/23 06:13 Albumin 3.0 g/dL (3.5-5.0) L 08/13/23 06:13 Lipase 12 U/L (8-78) 08/07/23 20: Vitamin B12 1664 pg/mL (200-900) H 08/13/23 09:02 Folate 5.9 ng/mL (> or = 4.0) 08/13/23 09:02 Urine Color Dark Yellow 08/07/23 20: Urine Appearance Turbid 08/07/23 20: Urine pH 5.5 (5.0-9.0) 08/07/23 20: Ur Specific [place] 1.025 (1.005-1.025) 08/07/23 20: Urine Protein 100 (2+) mg/dL (Neg-Trace) H 08/07/23 20: Urine Glucose (UA) Negative mg/dL (Negative) 08/07/23 20: Urine Ketones Trace mg/dL (Negative) 08/07/23 20: Urine Blood Moderate (2+) (Negative) H 08/07/23 20: Urine Nitrite Positive (Negative) H 08/07/23 20: Ur Leukocyte Esterase Large (3+) (Negative) H 08/07/23 20: Urine RBC >20 /HPF (0-2) H 08/07/23 20: Urine WBC >50 /HPF (0-5) H 08/07/23 20: Ur Squamous Epith Cells 6-10 /HPF (0-2) 08/07/23 20: Urine Bacteria 4+ (None Seen) 08/07/23: Hyaline Casts 0-2 /LPF (0-2) 08/07/23 20: Stool Occult Blood POSITIVE (NEGATIVE) 08/10/23 Unknown Stl C. cayetanensis PCR Not Detected (Not Detect.) 08/08/23 18:10 Stool Rotavirus A PCR Not Detected (Not Detect.) 08/08/23 18:10 Stl Adenov F 40/41 PCR Not Detected (Not Detect.) 08/08/23 18:10 Stool Astrovirus (PCR) Not Detected (Not Detect.) 08/08/23 18:10 Stool Campylobacter PCR Not Detected (Not Detect.) 08/08/23 18:10 Stool Cryptosporidium PCR Not Detected (Not Detect.) 08/08/23 18:10 Stl Sh Tox Pr E STEC PCR Not Detected (Not Detect.) 08/08/23 18:10 Stool E coli O157 PCR Not applicable (Not Detect.) 08/08/23 18:10 Stl Enterotoxigenic E PCR Not Detected (Not Detect.) 08/08/23 18:10 Stool EPEC (PCR) Not Detected (Not Detect.) 08/08/23 18:10 Stool EAEC (PCR) Not Detected (Not Detect.) 08/08/23 18:10 Stl E. histolytica PCR Not Detected (Not Detect.) 08/08/23 18:10 Stool Giardia Lamblia PCR Not Detected (Not Detect.) 08/08/23 18:10 Stl P. shigelloides PCR Not Detected (Not Detect.) 08/08/23 18:10 Stool Salmonella PCR Not Detected (Not Detect.) 08/08/23 18:10 Stool Sapovirus (PCR) Not Detected (Not Detect.) 08/08/23 18:10 Stl Shigella/EIEC PCR Not Detected (Not Detect.) 08/08/23 18:10 St Y.enterocolitica PCR Not Detected (Not Detect.) 08/08/23 18:10 Stool Vibrio (PCR) Not Detected (Not Detect.) 08/08/23 18:10 Stl Vibrio cholerae PCR Not Detected (Not Detect.) 08/08/23 18:10 Stl Norovirus GI/GII PCR Not Detected (Not Detect.) 08/08/23 18:10 C. difficile Tox B Gene NEGATIVE (Negative) 08/08/23 18:10 Influenza Type A (PCR) NEGATIVE (Negative) 08/07/23 20:25 Influenza Type B (PCR) NEGATIVE (Negative) 08/07/23 20:25 RSV RNA Qual (PCR) NEGATIVE (Negative) 08/07/23 20:25 SARS-CoV-2 RNA (RT-PCR) NEGATIVE (Negative) 08/07/23 20:25 Blood Type A Positive 08/13/23 09:02 Antibody Screen NEGATIVE 08/13/23 09:02 Crossmatch See Detail 08/13/23 09:02 Impressions Abdomen/Pelvis CT 08/08/23 01:07 IMPRESSION: * Mild mucosal hyperemia of the urinary bladder could represent cystitis. Please correlate with urinalysis. * Cholelithiasis and gallbladder distention similar to prior. There is a tiny nonobstructive stone in the distal common bile duct, without associated dilatation. * Incidental 1.2 cm cyst in the pancreatic tail. Recommend follow-up MRI/MRCP in one year, if clinically indicated (given patient age). * Mild constipation. . Shoulder X-Ray 08/14/23 11:10 IMPRESSION: 1. No acute fracture or dislocation. 2. Advanced degenerative changes of the shoulder with complete loss of glenohumeral joint space. Discharge Plan Discharge Anticipated Discharge Date/Time: 08/15/23 09:06 Patient Disposition: [facility] Discharge Diagnosis: UTI anemia, heme-positive stools Referrals: Cherry Ramos MD [Physician] - 2 Weeks Michael Shepard MD [Primary Care Provider] - 1 Week Discharge Medications: New levofloxacin 750 mg tablet 750 mg PO Q48H Qty: 2 0RF Rx Instructions: Take on 08/17 and 08/19 Continued calcium carbonate 600 mg calcium (1,500 mg) tablet 600 mg PO DAILY@1700 cod liver oil Capsule 1 cap PO DAILY fexofenadine 180 mg tablet 180 mg PO BEDTIME ferrous sulfate 325 mg (65 mg iron) tablet 325 mg PO DAILY vitamin E succinate 400 unit tablet 400 unit PO DAILY fluticasone propionate [Flovent HFA] 220 mcg/actuation HFA aerosol inhaler 2 puff PO BID Qty: 12 3RF metoprolol tartrate 25 mg tablet 25 mg PO BID Qty: 180 3RF amitriptyline 10 mg tablet 10 mg PO BEDTIME Qty: 90 1RF cyanocobalamin (vitamin B-12) 1,000 mcg Tablet 1,000 mcg PO DAILY pyridoxine (vitamin B6) 100 mg Tablet 100 mg PO DAILY ascorbic acid (vitamin C) [Vitamin C] 500 mg Tablet 500 mg PO DAILY@1700 diphenhydramine HCl [Benadryl] 25 mg Capsule 25 mg PO DAILY PreserVision AREDS-2 250-90-40-1 mg Capsule 1 tab PO BID [employer] 750 mg-100 mg- 1.65 mg-108 mg Tablet 1 tab PO BID atorvastatin 80 mg tablet 80 mg PO BEDTIME alendronate 70 mg tablet 70 mg PO MO@0900 lidocaine 4 % Adhesive Patch,Medicated 1 patch TOPICAL BID lysine 1,000 mg tablet 1,000 mg PO DAILY@1700 omeprazole 20 mg capsule,delayed release(DR/EC) 20 mg PO DAILY@0630 (DME) blood pressure monitor Kit See Rx Instructions .Route Qty: 1 0RF Rx Instructions: As directed cholecalciferol (vitamin D3) 25 mcg (1,000 unit) capsule 25 mcg PO DAILY nifedipine 30 mg tablet extended release 30 mg PO DAILY acetaminophen [Tylenol Extra Strength] 500 mg tablet 1,000 mg PO Q6H PRN (Reason: Pain) albuterol sulfate [ProAir HFA] 90 mcg/actuation HFA aerosol inhaler 2 puff inhalation Q6H PRN (Reason: Bronchodilation) Discontinued aspirin 81 mg tablet,delayed release (DR/EC) 81 mg PO DAILY Qty: 90 3RF Discharge Orders: Discharge Order (Routine); Ordered 08/15/23 Ordered By: May Jimenez Diet: Advance to usual diet Activity on Discharge: As tolerated Stand Alone Forms: Patient Portal Discharge page Other Ambulatory Orders: Complete Blood Count Auto Diff (Routine) Timeframe: 1 Week Facility: [facility] - Location: Laboratory Ordered By: May Jimenez Care Plan Goals: recovery from UTI management of anemia Health Concerns: UTI anemia, heme-positive stools Plan of Treatment: take levofloxacin 750 mg once on 08/17 and once on 08/19 hold aspirin for now; take ferrous sulfate; recheck CBC in 1 week consider outpatient gastroenterology evaluation incidental pancreatic cyst noted; consider MRI/MRCP in 1 year if desired Please follow up with your primary care doctor within 1 week of discharge from SNF. Return to the hospital if you experience recurrent or worsening symptoms. Assessment: See Discharge Summary.
== END 2023-08-15 11:54 | disposition skilled nursing facility (03) | DRG 463 ==
LOC: HO.ED 08-08 01:48 → HO.EDOVER 08-08 06:32 → HO.IMC 08-08 13:10 → HO.S3 08-10 07:07
PROVIDERS: Hospitalist; Physician Assistant; Physician Assistant Medical; Admitting Provider Internal Medicine; Emergency Provider Emergency Medicine Emergency Medical Services; PCP Internal Medicine; Visit Provider Family Medicine
DX: N39.0 Urinary tract infection, site not specified (principal); I50.32 Chronic diastolic (congestive) heart failure; F03.A0 Unspecified dementia, mild, without behavioral disturbance, psychotic disturbance, mood disturbance, and anxiety; I12.9 Hypertensive chronic kidney disease with stage 1 through stage 4 chronic kidney disease, or unspecified chronic kidney disease; D63.1 Anemia in chronic kidney disease; N18.30 Chronic kidney disease, stage 3 unspecified; R19.5 Other fecal abnormalities; B96.20 Unspecified Escherichia coli [E. coli] as the cause of diseases classified elsewhere; I25.10 Atherosclerotic heart disease of native coronary artery without angina pectoris; E78.5 Hyperlipidemia, unspecified; Z20.822 Contact with and (suspected) exposure to COVID-19; Z85.3 Personal history of malignant neoplasm of breast; Z95.2 Presence of prosthetic heart valve; Z88.0 Allergy status to penicillin; Z79.51 Long term (current) use of inhaled steroids; Z79.899 Other long term (current) drug therapy
CPT/HCPCS: 0241U; 36415; 73030; 74177; 80048; 80053; 81001; 82272; 82607; 82728; 82746; 83540; 83615; 83690; 83735; 85025; 85027; 85045; 86850; 86900; 86901; 86923; 87040; 87086; 87088; 87186; 87493; 87507; 97162; 97530; 99285; C9113; J1644; J1956; P9016

== ENCOUNTER → 2023-08-07 19:38 | Outpatient (BNV) | payer BC, SELFPAY | PROVIDERS: Emergency Provider Emergency Medicine Emergency Medical Services; PCP Internal Medicine; Visit Provider Internal Medicine | DX: N39.0 Urinary tract infection, site not specified (principal); R53.1 Weakness; I10 Essential (primary) hypertension | CPT/HCPCS: 99223; 99232; 99233; 99239; 99499 ==

== ENCOUNTER → 2023-08-08 06:28 | Outpatient (BNV) | payer BC, SELFPAY | PROVIDERS: Admitting Provider Internal Medicine; Emergency Provider Emergency Medicine Emergency Medical Services; PCP Internal Medicine; Visit Provider Internal Medicine Gastroenterology | DX: R19.5 Other fecal abnormalities (principal); D64.9 Anemia, unspecified | CPT/HCPCS: 99232 ==

== ENCOUNTER 2023-09-09 08:40 | Day surgery (SDC) | payer BC, SELFPAY ==
[2023-09-09 09:10] VITALS: BP 130/56; PULSE 54; RESP 18; TEMP 36.4; O2SAT 99; BMI 28.1
[2023-09-09 10:36] VITALS: BP 116/46; PULSE 63; RESP 16; TEMP 36.8; O2SAT 96
--- NOTE | 2023-09-09 10:41 | PM.EVENT ---
Event Note Date of Service: 09/09/23 Event Note: Patient presented for scheduled bilateral lumbar medial branch radiofrequency ablation. The patient was seen in the preop and consented for the procedure. Discussed plan for the day with her daughter. When we moved her to the OR, we placed the patient in the prone position. Unfortunately, the patient was unable to tolerate prone positioning due to uncontrolled pain in her right shoulder despite multiple attempts at achieving a comfortable position. Upon the patient's request, the procedure was canceled. With respect to her right shoulder pain, the daughter requested that we proceed with evaluation for a permanent suprascapular nerve stimulator placement to control her uncontrolled pain. We will place a referral for Psychology clearance and then book her for right suprascapular nerve stimulator trial with a [employer] device. Also, going forward we will schedule all her procedures with sedation to lower to tolerate the prone positionin for her procedures. Patient and daughter expressed understanding and are on board with the plan. Time Spent With Patient Time: Total time managing care of this patient today 45 minutes.
== END 2023-09-09 11:01 | disposition home or self-care (01) ==
PROVIDERS: PCP Internal Medicine; Visit Provider Internal Medicine
PROC: (CPT 64640; principal; 2023-09-09 09:40)
DX: M47.816 Spondylosis without myelopathy or radiculopathy, lumbar region (principal); G89.29 Other chronic pain; M25.511 Pain in right shoulder; Z53.09 Procedure and treatment not carried out because of other contraindication
CPT/HCPCS: 64640; J2795

== ENCOUNTER 2023-10-01 14:16 | Outpatient (AMB) | payer BC, SELFPAY ==
--- NOTE | 2023-10-01 14:19 | MHC.PC.OV ---
Vital Signs 10/01/23 14:23 Height 5 ft 6 in Weight 170 lb 4 oz BMI 27.5 BP 130/60 Blood Pressure Location Lt brachial Position Sitting Pulse 62 Pulse Source Pulse Oximeter Pulse Oximetry (%) 98 Oxygen Delivery Method Room Air Intake Visit Reasons: 3 Months F/U-from 05/21/23 visit Intake Note: Patient is here to follow up on CDHF, CAD, HTN, Anemia. Daughter concern about memory loss. Requesting referral to [facility] Dr Joel Brantley Principal Quality Engineer Required: No Still Operator Batch Or Continuous: Present Accompanied by: Daughter Allergies meperidine [From Demerol] Allergy (Severe, Verified 10/02/23 06:23) Nausea and Vomiting amoxicillin [AMOXICILLIN] Allergy (Intermediate, Verified 10/02/23 06:23) Rash cephalexin Allergy (Intermediate, Verified 10/02/23 06:23) Itching erythromycin base Allergy (Intermediate, Verified 10/02/23 06:23) Itching meloxicam Allergy (Intermediate, Verified 10/02/23 06:23) Abdominal Pain nitrofurantoin [From Macrobid] Allergy (Intermediate, Verified 10/02/23 06:23) Rash Penicillins Allergy (Intermediate, Verified 10/02/23 06:23) Rash Sulfa (Sulfonamide Antibiotics) [SULFA(SULFONAMIDE ANTIBIOTICS)] Allergy (Intermediate, Verified 10/02/23 06:23) Rash tramadol Allergy (Intermediate, Verified 10/02/23 06:23) Nausea and Vomiting codeine [CODEINE] Adverse Reaction (Intermediate, Verified 10/02/23 06:23) Nausea Medication List - Last Reconciled 10/02/23 by Michael Shepard MD acetaminophen (Tylenol Extra Strength) 1,000 mg PO Q6H PRN albuterol sulfate 90 mcg/actuation (ProAir HFA) 2 puffs inhalation Q6H PRN alendronate 70 mg PO MO@0900 amitriptyline 10 mg PO BEDTIME ascorbic acid (vitamin C) (Vitamin C) 500 mg PO DAILY@1700 aspirin 81 mg PO DAILY atorvastatin 80 mg PO BEDTIME blood pressure monitor As directed calcium carbonate 600 mg PO DAILY@1700 cholecalciferol (vitamin D3) 25 mcg PO DAILY cyanocobalamin (vitamin B-12) 1,000 mcg PO DAILY diphenhydramine HCl (Benadryl) 25 mg PO DAILY ferrous sulfate 325 mg PO DAILY fexofenadine 180 mg PO BEDTIME fluticasone propionate 220 mcg/actuation 2 puffs inhalation BID 30 days qekkjahc-vdrdg-gohvx-CF borate 750 mg-100 mg- 1.65 mg-108 mg (Move [facility]) 1 tab PO BID lidocaine 4% 1 patch topical BID metoprolol tartrate 25 mg PO BID nifedipine ER 30 mg PO DAILY omeprazole 20 mg PO BID pyridoxine (vitamin B6) 100 mg PO DAILY vit C,O-Yu-leuhk-lutein-zeaxan 250-90-40-1 mg (PreserVision AREDS-2) 1 tab PO BID vitamin E succinate 400 units PO DAILY Tobacco use date assessed: 10/01/23 Fall risk assessment: No Falls in past year Last assessed Fall Risk: 10/01/23 Dental Screening Dental Screen Date: 10/01/23 Did you have a dental visit in the last 12 months?: Yes Did you have a dental problem in the last 6 months where you did not have access to dental care?: No Was dental information given to patient?: Patient has dentist HPI 3 Months F/U-from 05/21/23 visit HPI Details 88-year-old female presents to the office to discuss her medical condition. She is accompanied by her daughter. Since last office visit patient has moved to assisted living. Subsequently she developed a bad urinary tract infection and was evaluated in the emergency room. Patient has completed the antibiotics. Continues to have right shoulder and lower back pain. Procedure plan from the pain clinic did not proceed because of difficulty in administering anesthesia. An ablation procedure did not work. Patient is being scheduled for a placement of a stimulator. Patient would like to see a senior erp consultant near her care home facility. She has a few lesions on the face that she would like evaluated. Daughter is reporting that patient is slowly losing her memory. Mostly it is short-term memory. She repeats the questions frequently. 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) S/P cardiac catheterization History of hand surgery History of heart artery stent History of laminectomy History of kyphoplasty History of cataract surgery History of D&C Family History Father Hypertension Mother Thyroid cancer Sister Breast cancer Social History Household Members: Other Household Members Other:: assisted living [facility] Housing: Assisted Living Facility Do you presently have visiting nurse or other home services: Yes Alcohol intake: never Patient Tobacco Use Status: Never used Tobacco e-Cigarette/Vaping Use: Never Used Second Hand Smoke Exposure: No Advance Directives Date on File: 02/06/21 service: No Current occupational status: retired Cognitive needs: Yes (walker/cane) Hearing needs: Yes (hearing aide) Vision needs: Yes (glasses) Questionnaire PHQ-9 Over the last 2 weeks, how often have you been bothered by any of the following problems? 1. Little interest or pleasure in doing things: not at all 2. Feeling down, depressed, or hopeless: not at all 3. Trouble falling or staying asleep, or sleeping too much: not at all 4. Feeling tired or having little energy: not at all 5. Poor appetite or overeating: not at all 6. Feeling bad about yourself - or that you are a failure or have let yourself or your family down: not at all 7. Trouble concentrating on things, such as reading the newspaper or watching television: not at all 8. Moving or speaking so slowly that other people could have noticed. Or the opposite - being so fidgety or restless that you have been moving around a lot more than usual: not at all 9. Thoughts that you would be better off or of hurting yourself in some way: not at all Total score: 0 Depression Screening Interpretation: Negative Depression Screening Done: Yes Source: Developed by Drs. Hossein Elizalde, Olinda Clark, Zak Lechuga and colleagues, with an educational yemi from [employer]. Thrive Questionnaire Date Thrive assessed: 10/01/23 I am a: Patient What is your living situation today?: I have a steady place to live Within the past 12 months, did the food you bought not last and you didn't have the money to get more?: Never true Within the past 12 months, did you worry whether your food would run out before you got money to buy more?: Never true Do you have trouble paying for medicines?: No Do you have trouble getting transportation to medical appointments?: No Do you have trouble paying your heating and electricity bill?: No Do you have trouble taking care of your child, family member or friend?: No Do you have trouble with day-to-day activities such as bathing, preparing meals, shopping, managing finances, etc.?: No Are you currently unemployed and looking for a job?: No Are you interested in more education?: No Currently or been in a relationship where the following occur: no concerns reported THRIVE Score: 0 AUDIT C Alcohol Use Questionnaire (AUDIT-C) 1. How often do you have a drink containing alcohol?: Monthly or less 2. How many drinks containing alcohol do you have on a typical day when you are drinking?: 1 or 2 Total Score: 1 BRUNO-7 AMB Questionnaire BRUNO-7 Date BRUNO - 7 assessed: 10/01/23 Feeling nervous, anxious, or on edge: 0 = Not at all Not being able to stop or control worryin = Not at all Worrying too much about different things: 0 = Not at all Trouble relaxin = Not at all Being so restless that it is hard to sit still: 0 = Not at all Becoming easily annoyed or irritable: 0 = Not at all Feeling afraid as if something awful might happen: 0 = Not at all Total BRUNO-7 score (0-4 normal; 5-9 mild; 10-14 moderate; 15-21 severe): 0 Source: Developed by Drs. Hossein Elizalde, Olinda Clark, Zak Lechuga and colleagues, with an educational yemi from [employer]. Physical exam (Primary Care) Vital Signs: Last Vital Signs Pulse 62 10/01/23 14:23 BP 130/60 10/01/23 14:23 Pulse Ox 98 10/01/23 14:23 Oxygen Delivery Method Room Air 10/01/23 14:23 Care Plan Goal for BP management: Blood pressure is in range. Continue current medications. BMI result Body Mass Index 27.5 Tobacco/Smoking Status: Tobacco use Status Tobacco use date assessed 10/01/23 10/01/23 14:23 Patient Tobacco Use Status Never used Tobacco 10/01/23 14:23 e-Cigarette/Vaping Use Never Used 10/01/23 14:23 PHQ-9: PHQ-9 Score PHQ-9: Total score 0 10/01/23 14:23 Depression Screening Interpretation: Negative Thrive Assessment: Date of Thrive Assessment Date Thrive assessed 10/01/23 10/01/23 14:23 Currently or been in a relationship where the following occur: no concerns reported Advance Care Planning discussion: Exists, not on file Date of discussion: 10/01/23 Forms completed: MOLST Time spent: 1-15 minutes, on File Actual minutes spent: 5 Const General: cooperative and healthy appearing Nutritional Appearance: well nourished Orientation/consciousness: patient oriented x3 Limitations: no limitations HENMT Head: Yes normal to inspection Eyes General: appearance normal, both eyes and all related structures Neck Neck: Yes normal visual inspection Chest Chest palpation & inspection: normal palpation of entire chest wall Resp Effort & Inspection: normal respiratory effort Skin Other: Face: Atypical nevi on the forehead, brown papules on the bilateral temporal side. No vesicles or pustules seen. Neuro General: patient oriented x3 Extrem Other: Right shoulder : Limited range of motion Assessment and Plan Assessment & Plan (1) Atypical nevi: Code(s): D22.9 - Melanocytic nevi, unspecified Plan: Dermatology appt given. Lesions represent solar keratosis (2) Chronic diastolic heart failure: Code(s): I50.32 - Chronic diastolic (congestive) heart failure Plan: Condition is stable. Continue current medications, (3) Acute on chronic anemia: Code(s): D64.9 - Anemia, unspecified Plan: Condition is stable. (4) Chronic right shoulder pain: Code(s): M25.511 - Pain in right shoulder; G89.29 - Other chronic pain Plan: Patient is seeing the provider in the pain clinic shortly. Continue current medications and proceed towards implantation of the stimulator. (5) Dementia: Code(s): F03.90 - Unspecified dementia, unspecified severity, without behavioral disturbance, psychotic disturbance, mood disturbance, and anxiety Plan: Condition is worsening with advancing age. (6) Breast cancer: Code(s): C50.919 - Malignant neoplasm of unspecified site of unspecified female breast Orders: Referrals Dermatology Referral D22.9 - Melanocytic nevi, unspecified Coding Level of Care Code Est Pt Level 4 (95066) Diagnoses Atypical nevi D22.9 Chronic diastolic heart failure I50.32 Acute on chronic anemia D64.9 Chronic right shoulder pain M25.511; G89.29 Dementia F03.90 Breast cancer C50.919 Additional Codes Vital Signs *Quality* - Advance Care Planning discussion: Exists, not on file ([id number]) Vital Signs *Quality* - Time spent: 1-15 minutes, on File ([id number])
[2023-10-01 14:23] VITALS: BP 130/60; PULSE 62; O2SAT 98; BMI 27.5
== END 2023-10-01 15:19 | disposition home or self-care (01) ==
PROVIDERS: PCP Internal Medicine; Visit Provider Internal Medicine
DX: D22.9 Melanocytic nevi, unspecified (principal); F03.90 Unspecified dementia, unspecified severity, without behavioral disturbance, psychotic disturbance, mood disturbance, and anxiety; C50.919 Malignant neoplasm of unspecified site of unspecified female breast; Z00.00 Encounter for general adult medical examination without abnormal findings; I50.32 Chronic diastolic (congestive) heart failure; D64.9 Anemia, unspecified; M25.511 Pain in right shoulder; G89.29 Other chronic pain
CPT/HCPCS: 1123F; 99214

== ENCOUNTER → 2023-10-28 14:54 | Outpatient (BNV) | payer BC, SELFPAY | PROVIDERS: PCP Internal Medicine; Visit Provider Internal Medicine Cardiovascular Disease | DX: R94.31 Abnormal electrocardiogram [ECG] [EKG] (principal) | CPT/HCPCS: 93010 ==

== ENCOUNTER → 2023-11-04 12:29 | Day surgery (SDC) | payer BC, SELFPAY ==
--- NOTE | 2023-10-28 | ECG_ITS ---
Test Reason : preop Blood Pressure : / mmHG Vent. Rate : 059 BPM Atrial Rate : 059 BPM P-R Int : 202 ms QRS Dur : 114 ms QT Int : 418 ms P-R-T Axes : 039 -27 036 degrees QTc Int : 413 ms Sinus bradycardia Left ventricular hypertrophy with repolarization abnormality ( R in aVL , Jesu product ) Cannot rule out Septal infarct , age undetermined Abnormal ECG When compared with ECG of 05-FEB-2021 22:34, Premature atrial complexes are no longer Present Minimal criteria for Septal infarct are now Present Referred By: Mei Nixon Electronically Signed By:Yousif Palacios
[2023-10-28 13:47] VITALS: BP 131/60; PULSE 62; RESP 18; O2SAT 98; BMI 27.4
--- NOTE | 2023-10-28 14:01 | HO.ANESPROP2 ---
Documented by User: Mei Nixon NP 11/02/23 15:14 HPI - Anesthesia Eval Consult details Narrative: 88yo Right Suprascapular Peripheral Nerve Stimulator Trial Cardiac cleared via workload by Dr Palacios. Last office visit 04/2023. Last ECHO 2021. (Case reviewed with Dr Monroy) EKG change OK'd by Dr Palacios, d/t lead positioning. No recent illness No CP. PEREZ with walking length of 1 hallway s/p TAVR 2020. No peripheral edema or orthopnea COPD/Asthma. Stable PMFSH Active Problems Active Problems: All Active Problems (Updated 10/28/23 @ 13:47 by Elyse Thomason RN) Acute on chronic anemia (Acute) Heme positive stool (Acute) Weakness (Acute) Acute UTI (Acute) Chronic diastolic heart failure (Acute) Greater trochanteric bursitis of left hip (Acute) Lumbar spondylosis (Acute) Lumbar back pain with radiculopathy affecting left lower extremity (Acute) Lumbar degenerative disc disease (Acute) Bilateral hip pain (Acute) History of recent fall (Acute) Sacroiliac joint pain (Acute) Muscle spasms of neck (Acute) Chronic right shoulder pain (Acute) Fatigue (Acute) Paronychia of fifth toe of right foot (Acute) Dementia (Acute) Age-related macular degeneration (Acute) Biliary colic (Acute) Eyelid cellulitis (Acute) Primary osteoarthritis, right shoulder (Acute) Bursitis of right shoulder (Acute) Degenerative joint disease of thoracic spine (Acute) Screening for breast cancer (Acute) Annual physical exam (Acute) Age-related osteoporosis without current pathological fracture (Acute) Coronary artery disease (Acute) Cholelithiasis (Acute) Acute respiratory failure with hypoxia (Acute) Status post laminectomy (Acute) Pulmonary hypertension (Acute) Severe mitral valve regurgitation (Acute) S/P lumbar laminectomy (Acute) Non-ST elevation RI (NSTEMI) (Acute) Congestive heart failure (Acute) Musculoskeletal disorder of neck (Acute) Pre-operative clearance (Acute) Acute laryngitis (Acute) Breast cancer (Acute) S/P TAVR (transcatheter aortic valve replacement) (Acute) Coronary artery disease (Acute) S/P cardiac catheterization (Acute) Anemia (Acute) Primary osteoarthritis involving multiple joints (Acute) Osteoporosis (Acute) Benign essential HTN (Acute) Asthma (Acute) Allergic rhinitis (Acute) Past Medical History Medical History (Updated 10/28/23 @ 13:47 by Elyse Thomason RN) PONV (postoperative nausea and vomiting) COPD (chronic obstructive pulmonary disease) CHF (congestive heart failure) Macular degeneration Dementia HTN (hypertension) Breast cancer Atherosclerotic cardiovascular disease Coronary artery disease Anemia Aortic stenosis, severe Primary osteoarthritis involving multiple joints Osteoporosis Benign essential HTN Asthma Allergic rhinitis Family History Family History Father Hypertension Mother Thyroid cancer Sister Breast cancer Family history of problems with anesthesia: No Surgical History Surgical History (Updated 10/28/23 @ 13:40 by Elyse Thomason RN) S/P TAVR (transcatheter aortic valve replacement) S/P cardiac catheterization History of hand surgery History of heart artery stent History of laminectomy History of kyphoplasty History of cataract surgery History of D&C History of Problems with Anesthesia: Yes (N/V with GA) Social History Social History Household Members: Other Household Members Other:: assisted living [facility] Housing: Assisted Living Facility Housing Other:: [facility] Are you a primary resident care supervisor to a significant other at home: No Do you presently have visiting nurse or other home services: Yes (as above noted) Alcohol intake: never Patient Tobacco Use Status: Former Tobacco user Quit Date: early Tobacco use type: Cigarette Years Smoked: 5 e-Cigarette/Vaping Use: Never Used Second Hand Smoke Exposure: No Use of substances other than those prescribed or required for medical reasons: No Have you been hit, kicked, punched, or otherwise hurt by someone within the past year? If so, by whom?: No Are you DNR?: No Advance Directives: No Advance Directives Information Provided: Yes Advance Directives on File: Yes Advance Directives Date on File: 02/06/21 Recently lost weight without trying: No Eating poorly because of decreased appetite: No Nutrition Risks: Surgical patient >75years Poor oral hygiene: No service: No Current occupational status: retired Cognitive needs: Yes (walker/cane) Hearing needs: Yes (hearing aide) Vision needs: Yes (glasses) Meds Allergies Allergy/AdvReac Type Severity Reaction Status Date / Time meperidine [From Demerol] Allergy Severe Nausea and Verified 10/02/23 06:23 Vomiting amoxicillin [AMOXICILLIN] Allergy Intermediate Rash Verified 10/02/23 06:23 cephalexin Allergy Intermediate Itching Verified 10/02/23 06:23 erythromycin base Allergy Intermediate Itching Verified 10/02/23 06:23 meloxicam Allergy Intermediate Abdominal Verified 10/02/23 06:23 Pain nitrofurantoin Allergy Intermediate Rash Verified 10/02/23 06:23 [From Macrobid] Penicillins Allergy Intermediate Rash Verified 10/02/23 06:23 Sulfa (Sulfonamide Allergy Intermediate Rash Verified 10/02/23 06:23 Antibiotics) [SULFA(SULFONAMIDE ANTIBIOTICS)] tramadol Allergy Intermediate Nausea and Verified 10/02/23 06:23 Vomiting codeine [CODEINE] AdvReac Intermediate Nausea Verified 10/02/23 06:23 Home Medications Medication Instructions Recorded Confirmed Last Taken Type calcium carbonate 600 mg calcium 600 mg PO DAILY@1700 12/31/20 10/27/23 09/09/23 History (1,500 mg) tablet ferrous sulfate 325 mg (65 mg 325 mg PO DAILY 12/31/20 10/27/23 03/11/23 History iron) tablet fexofenadine 180 mg tablet 180 mg PO BEDTIME 12/31/20 10/27/23 Unknown History vitamin E succinate 268 mg (400 400 unit PO DAILY 12/31/20 10/27/23 09/09/23 History unit) tablet cyanocobalamin (vitamin B-12) 1,000 mcg PO DAILY 02/06/21 10/27/23 09/09/23 History 1,000 mcg tablet pyridoxine (vitamin B6) 100 mg 100 mg PO DAILY 02/06/21 10/27/23 09/09/23 History tablet cholecalciferol (vitamin D3) 25 25 mcg PO DAILY 11/05/21 10/27/23 03/11/23 History mcg (1,000 unit) capsule acetaminophen 500 mg tablet 1,000 mg PO Q6H PRN Pain 05/18/23 10/27/23 09/09/23 History (Tylenol Extra Strength) nifedipine 30 mg tablet,extended 30 mg PO DAILY 05/18/23 10/27/23 09/09/23 History release albuterol sulfate 90 mcg/actuation 2 puff inhalation Q6H PRN 07/08/23 10/27/23 Unknown History aerosol inhaler (ProAir HFA) Bronchodilation alendronate 70 mg tablet 70 mg PO MO@0900 08/08/23 10/27/23 09/09/23 History ascorbic acid (vitamin C) 500 mg 500 mg PO DAILY@1700 08/08/23 10/27/23 09/09/23 History tablet (Vitamin C) diphenhydramine HCl 25 mg capsule 25 mg PO DAILY 08/08/23 10/27/23 09/09/23 History (Benadryl) glucosam 750 mg-chondroi 100 1 tab PO BID 08/08/23 10/27/23 09/09/23 History mg-hyalur 1.65 mg-CF borate 108 mg tablet ([facility]) lidocaine 4 % topical patch 1 patch topical BID 08/08/23 10/27/23 09/09/23 History vit C 250 mg-vit E 90 mg-zinc 40 1 tab PO BID 08/08/23 10/27/23 09/09/23 History mg-copper 1 [id number] capsule (PreserVision AREDS-2) aspirin 81 mg tablet,delayed 81 mg PO DAILY 10/01/23 10/27/23 Unknown History release Exam Height,Weight and Vital Signs: Height 5 ft 6 in Weight 77.111 kg Last Vital Signs Pulse 62 10/28/23 13:47 Resp 18 10/28/23 13:47 BP 131/60 10/28/23 13:47 Pulse Ox 98 10/28/23 13:47 O2 Del Method Room Air 10/28/23 13:47 Pertinent Lab Results Pertinent Lab Results: Lab Results 10/28/23 Range/Units 14:36 WBC 6.4 (4.8-10.8) X10*3/uL RBC 3.06 L (4.20-5.50) X10*6/uL Hgb 9.6 L (12.0-16.0) g/dl Hct 29.3 L (37.0-47.0) % MCV 95.8 (80.0-98.0) fL MCH 31.4 (27.0-33.0) pg MCHC 32.8 (31.0-35.0) g/dl RDW 15.9 (11.0-16.0) % Plt Count 269 (160-400) X10*3/uL MPV 10.6 (9.4-12.3) fL Absolute Nucleated RBC 0.000 (0.0-0.012) X10*3/uL Nucleated RBC % (auto) 0.0 (0.0-0.2) /100WBC Sodium 138 (135-145) mmol/L Potassium 4.3 (3.3-5.1) mmol/L Chloride 106 (96-108) mmol/L Carbon Dioxide 25 (22-29) mmol/L Anion Gap 11 L (12-20) BUN 24 H (9-16) mg/dL Creatinine 1.17 (0.5-1.4) mg/dL Estim Creat Clear Calc 35.4 Estimated GFR 44 Random Glucose 82 (60-115) mg/dL Calcium 9.3 (8.4-10.2) mg/dL B-Natriuretic Peptide 217 H (<100) pg/mL Narrative Narrative: EKG 10/2023 Pending final read ECHO 2021 LV size is nml. LV wall thickness is mildly decreased. LV systolic function is nml. LVEF 60-65%. Basal to mid inferoseptal, inferlateral wall is akinetic. Grade 2, moderate diastolic dysfunction with pseudonml LV filling pattern and increased LA pressures. LA severely dilated. Transcatheter aortic valve implantation in the aortic position. There is mild paravalvular leak. There is no central aortic insufficiency. Mild MAC. Mitral valve opening is nml. There is mild mitral regurg. There is no significant mitral stenosis. RV is nml in size and function. Airway Mallampati Class: II (Small mouth) TM Dist: >3cm Loose/Missing/Broken Teeth: No Heart: RRR Lungs: Fine crackles RLL, otherwise clear Assessment and Plan Assessment Anesthesia Assessment: Anesthesia Plan Discussed and PAT Visit Final Anesthetic Review Family History of Problems with Anesthesia: No History of Problems with Anesthesia: Yes (N/V with GA) Documented by User: Chyna Becerra MD 11/04/23 14:57 [facility] Past Medical History Medical History (Updated 10/28/23 @ 13:47 by Elyse Thomason, RN) PONV (postoperative nausea and vomiting) COPD (chronic obstructive pulmonary disease) CHF (congestive heart failure) Macular degeneration Dementia HTN (hypertension) Breast cancer Atherosclerotic cardiovascular disease Coronary artery disease Anemia Aortic stenosis, severe Primary osteoarthritis involving multiple joints Osteoporosis Benign essential HTN Asthma Allergic rhinitis Family History Family History Father Hypertension Mother Thyroid cancer Sister Breast cancer Surgical History Surgical History (Updated 10/28/23 @ 13:40 by Elyse Thomason RN) S/P TAVR (transcatheter aortic valve replacement) S/P cardiac catheterization History of hand surgery History of heart artery stent History of laminectomy History of kyphoplasty History of cataract surgery History of D&C Social History Social History Household Members: Other Household Members Other:: assisted living [facility] Housing: Assisted Living Facility Housing Other:: [facility] Are you a primary resident care supervisor to a significant other at home: No Do you presently have visiting nurse or other home services: Yes (as above noted) Alcohol intake: never Patient Tobacco Use Status: Former Tobacco user Quit Date: early Tobacco use type: Cigarette Years Smoked: 5 e-Cigarette/Vaping Use: Never Used Second Hand Smoke Exposure: No Use of substances other than those prescribed or required for medical reasons: No Have you been hit, kicked, punched, or otherwise hurt by someone within the past year? If so, by whom?: No Are you DNR?: No Advance Directives: No Advance Directives Information Provided: Yes Advance Directives on File: Yes Advance Directives Date on File: 02/06/21 Recently lost weight without trying: No Eating poorly because of decreased appetite: No Nutrition Risks: Surgical patient >75years Poor oral hygiene: No service: No Current occupational status: retired Cognitive needs: Yes (walker/cane) Hearing needs: Yes (hearing aide) Vision needs: Yes (glasses) Meds Allergies Allergy/AdvReac Type Severity Reaction Status Date / Time meperidine [From Demerol] Allergy Severe Nausea and Verified 10/02/23 06:23 Vomiting amoxicillin [AMOXICILLIN] Allergy Intermediate Rash Verified 10/02/23 06:23 cephalexin Allergy Intermediate Itching Verified 10/02/23 06:23 erythromycin base Allergy Intermediate Itching Verified 10/02/23 06:23 meloxicam Allergy Intermediate Abdominal Verified 10/02/23 06:23 Pain nitrofurantoin Allergy Intermediate Rash Verified 10/02/23 06:23 [From Macrobid] Penicillins Allergy Intermediate Rash Verified 10/02/23 06:23 Sulfa (Sulfonamide Allergy Intermediate Rash Verified 10/02/23 06:23 Antibiotics) [SULFA(SULFONAMIDE ANTIBIOTICS)] tramadol Allergy Intermediate Nausea and Verified 10/02/23 06:23 Vomiting codeine [CODEINE] AdvReac Intermediate Nausea Verified 10/02/23 06:23 Home Medications Medication Instructions Recorded Confirmed Last Taken Type calcium carbonate 600 mg calcium 600 mg PO DAILY@1700 12/31/20 10/27/23 09/09/23 History (1,500 mg) tablet ferrous sulfate 325 mg (65 mg 325 mg PO DAILY 12/31/20 10/27/23 03/11/23 History iron) tablet fexofenadine 180 mg tablet 180 mg PO BEDTIME 12/31/20 10/27/23 Unknown History vitamin E succinate 268 mg (400 400 unit PO DAILY 12/31/20 10/27/23 09/09/23 History unit) tablet cyanocobalamin (vitamin B-12) 1,000 mcg PO DAILY 02/06/21 10/27/23 09/09/23 History 1,000 mcg tablet pyridoxine (vitamin B6) 100 mg 100 mg PO DAILY 02/06/21 10/27/23 09/09/23 History tablet cholecalciferol (vitamin D3) 25 25 mcg PO DAILY 11/05/21 10/27/23 03/11/23 History mcg (1,000 unit) capsule acetaminophen 500 mg tablet 1,000 mg PO Q6H PRN Pain 05/18/23 10/27/23 09/09/23 History (Tylenol Extra Strength) nifedipine 30 mg tablet,extended 30 mg PO DAILY 05/18/23 10/27/23 09/09/23 History release albuterol sulfate 90 mcg/actuation 2 puff inhalation Q6H PRN 07/08/23 10/27/23 Unknown History aerosol inhaler (ProAir HFA) Bronchodilation alendronate 70 mg tablet 70 mg PO MO@0900 08/08/23 10/27/23 09/09/23 History ascorbic acid (vitamin C) 500 mg 500 mg PO DAILY@1700 08/08/23 10/27/23 09/09/23 History tablet (Vitamin C) diphenhydramine HCl 25 mg capsule 25 mg PO DAILY 08/08/23 10/27/23 09/09/23 History (Benadryl) glucosam 750 mg-chondroi 100 1 tab PO BID 08/08/23 10/27/23 09/09/23 History mg-hyalur 1.65 mg-CF borate 108 mg tablet ([facility]) lidocaine 4 % topical patch 1 patch topical BID 08/08/23 10/27/23 09/09/23 History vit C 250 mg-vit E 90 mg-zinc 40 1 tab PO BID 08/08/23 10/27/23 09/09/23 History mg-copper 1 [id number] capsule (PreserVision AREDS-2) aspirin 81 mg tablet,delayed 81 mg PO DAILY 10/01/23 10/27/23 Unknown History release Assessment and Plan Final Anesthetic Review NPO: Yes ASA Class: III Final Preanesthetic Review: No Changes in Pt Med Stat, Meds/Allgs Chart Reviewed and Consent Obtained/Reviewed Patient Risk: Intermediate Procedure Risk: Low Anesthetic Plan Anesthetic Plan: MAC: Disposition: Standard PACU
[2023-10-28 15:36] LABS: Hematocrit 29.3 % (37.0-47.0); Hemoglobin 9.6 g/dl (12.0-16.0); Mean Corpuscular HGB Conc 32.8 g/dl (31.0-35.0); Mean Corpuscular Hemoglobin 31.4 pg (27.0-33.0); Mean Corpuscular Volume 95.8 fL (80.0-98.0); Mean Platelet Volume 10.6 fL (9.4-12.3); Platelet Count 269 X10*3/uL (160-400); Red Blood Count 3.06 X10*6/uL (4.20-5.50); Red Cell Distribution Width 15.9 % (11.0-16.0); White Blood Count 6.4 X10*3/uL (4.8-10.8)
[2023-10-28 16:07] LABS: Anion Gap 11 (12-20); B Type Natriuretic Peptide 217 pg/mL (<100); Blood Urea Nitrogen 24 mg/dL (9-16); Calcium 9.3 mg/dL (8.4-10.2); Carbon Dioxide 25 mmol/L (22-29); Chloride 106 mmol/L (96-108); Creatinine Clr Calc Pharmacy 35.4; Estimated Glomerular Filt Rate 44; Glucose Random 82 mg/dL (60-115); Potassium 4.3 mmol/L (3.3-5.1); Sodium 138 mmol/L (135-145)
[2023-11-04 13:42] VITALS: BP 135/53; PULSE 58; RESP 18; TEMP 36.4; O2SAT 98; BMI 28.8
--- NOTE | 2023-11-04 14:33 | PC.NURSE ---
rns x 2 with attempts x2 ea without success. Dr. Nolan WITH ULTRASOUND FOR IV. PT TOLERATING FAIR
--- NOTE | 2023-11-04 14:44 | PC.NURSE ---
DAUGHTER Antonietta REMAINS AT BEDSIDE. Dr. Garcia with ultrasound. attempts x 3 without success. yolanda with attempt ICU director. report given to Jasmin AMBRIZ to continue care.
--- NOTE | 2023-11-04 14:57 | MHC.SHP ---
Pre-Procedural Eval Section A - 24 Hr Update-Section A only Date of Service: 11/04/23 The patient is an INPATIENT: No Changes since office visit: Yes Patient answered all questions The patient has been examined within 24 hours of the surgical procedure. The History & Physical has been completed within 30 days and I have reviewed it.: No Section B - Complete if H&P > 30 days Chief Complaint: Pain in right shoulder,chronic pain, Relevant Family History (Specify if Yes): No Relevant Social History: None Present Medications: see Short Stay Collaborative assessment Medical History: No relevant PMH History of Previous Operations: No relevant previous surgery Allergies: Allergies Allergy/AdvReac Type Severity Reaction Status Date / Time meperidine [From Demerol] Allergy Severe Nausea and Verified 10/02/23 06:23 Vomiting amoxicillin [AMOXICILLIN] Allergy Intermediate Rash Verified 10/02/23 06:23 cephalexin Allergy Intermediate Itching Verified 10/02/23 06:23 erythromycin base Allergy Intermediate Itching Verified 10/02/23 06:23 meloxicam Allergy Intermediate Abdominal Verified 10/02/23 06:23 Pain nitrofurantoin Allergy Intermediate Rash Verified 10/02/23 06:23 [From Macrobid] Penicillins Allergy Intermediate Rash Verified 10/02/23 06:23 Sulfa (Sulfonamide Allergy Intermediate Rash Verified 10/02/23 06:23 Antibiotics) [SULFA(SULFONAMIDE ANTIBIOTICS)] tramadol Allergy Intermediate Nausea and Verified 10/02/23 06:23 Vomiting codeine [CODEINE] AdvReac Intermediate Nausea Verified 10/02/23 06:23 Review of Systems Sugical H&P ROS: Negative: Constitution, Cardiovascular and Respiratory Exam Surgical H&P Exam: Normal: HEENT, Normal: Heart and Normal: Lungs Plan Diagnosis/Plan: Unchanged I have reviewed the history and physical and performed a pertinent physical examination on my patient. No changes have occurred unless specified. Time Spent With Patient Time: Total time managing care of this patient today ____ minutes.
[2023-11-04 15:06] LABS: MRSA Nasal PCR NEGATIVE (Negative); SA Nasal PCR NEGATIVE (Negative)
--- NOTE | 2023-11-04 15:27 | PC.NURSE ---
After several unsuccessful attempts to start peripheral IV, pt case has been cancelled. Dr. Garcia at bedside discussing with daughter. Plan in place for outpatient follow up.
--- NOTE | 2023-11-04 15:49 | PM.EVENT ---
Event Note Date of Service: 11/04/23 Event Note: Scheduled procedure canceled due to inability to obtain IV access Time Spent With Patient Time: Total time managing care of this patient today 40 minutes.
== END ==
PROVIDERS: Nurse Practitioner; Nurse Practitioner Family; PCP Internal Medicine; Visit Provider Internal Medicine
DX: M25.511 Pain in right shoulder (principal); G89.29 Other chronic pain; Z53.8 Procedure and treatment not carried out for other reasons
CPT/HCPCS: 36415; 80048; 83880; 85027; 87640; 87641; 93005; J2704; J2795

== ENCOUNTER 2023-11-27 09:41 | Outpatient (AMB) | payer BC, SELFPAY ==
--- NOTE | 2023-11-27 09:49 | A.OFFVIS_ITS ---
Vital Signs 11/27/23 09:51 Height 5 ft 5 in Weight 175 lb BMI 29.1 BP 129/60 Blood Pressure Location Lt brachial Position Sitting Respiration 12 Pulse 60 Pulse Source Pulse Oximeter Pulse Oximetry (%) 96 Oxygen Delivery Method Room Air Intake Visit Reasons: Three Week Follow Up Allergies meperidine [From Demerol] Allergy (Severe, Verified 11/27/23 09:53) Nausea and Vomiting amoxicillin [AMOXICILLIN] Allergy (Intermediate, Verified 11/27/23 09:53) Rash cephalexin Allergy (Intermediate, Verified 11/27/23 09:53) Itching erythromycin base Allergy (Intermediate, Verified 11/27/23 09:53) Itching meloxicam Allergy (Intermediate, Verified 11/27/23 09:53) Abdominal Pain nitrofurantoin [From Macrobid] Allergy (Intermediate, Verified 11/27/23 09:53) Rash Penicillins Allergy (Intermediate, Verified 11/27/23 09:53) Rash Sulfa (Sulfonamide Antibiotics) [SULFA(SULFONAMIDE ANTIBIOTICS)] Allergy (Intermediate, Verified 11/27/23 09:53) Rash tramadol Allergy (Intermediate, Verified 11/27/23 09:53) Nausea and Vomiting codeine [CODEINE] Adverse Reaction (Intermediate, Verified 11/27/23 09:53) Nausea Medication List - Last Reconciled 11/27/23 by Erin Bowie LPN acetaminophen (Tylenol Extra Strength) 1,000 mg PO Q6H PRN albuterol sulfate 90 mcg/actuation (ProAir HFA) 2 puffs inhalation Q6H PRN alendronate 70 mg PO MO@0900 amitriptyline 10 mg PO BEDTIME ascorbic acid (vitamin C) (Vitamin C) 500 mg PO DAILY@1700 aspirin 81 mg PO DAILY atorvastatin 80 mg PO BEDTIME blood pressure monitor As directed calcium carbonate 600 mg PO DAILY@1700 cholecalciferol (vitamin D3) 25 mcg PO DAILY cyanocobalamin (vitamin B-12) 1,000 mcg PO DAILY diphenhydramine HCl (Benadryl) 25 mg PO DAILY doxycycline hyclate 100 mg PO DAILY MDD One tablet ferrous sulfate 325 mg PO DAILY fexofenadine 180 mg PO BEDTIME fluticasone propionate 220 mcg/actuation 2 puffs inhalation BID 30 days ztkpaeyu-euvas-ednsr-CF borate 750 mg-100 mg- 1.65 mg-108 mg ([facility] [employer]) 1 tab PO BID lidocaine 4% 1 patch topical BID metoprolol tartrate 25 mg PO BID nifedipine ER 30 mg PO DAILY omeprazole 20 mg PO BID pyridoxine (vitamin B6) 100 mg PO DAILY vit C,K-Ho-swxmm-lutein-zeaxan 250-90-40-1 mg (PreserVision AREDS-2) 1 tab PO BID vitamin E succinate 400 units PO DAILY HPI HPI Three Week Follow Up: Details: 88-year-old female who presents today to the office for a three-week follow up. She is not taking oxycodone due to side effects, including GI upset and itchiness. Her side effects were resolved after discontinuing oxycodone. She is taking Benadryl daily. She deferred taking codeine and tramadol, as she had not tolerated them well in the past. She has not tried morphine in the past. She inquired about taking acetaminophen for pain management. She has been using a new mattress, which is working well for her. Past procedures: 07/15/23: Articular branches of the axillary, suprascapular and lateral pectoral nerve cooled RFL, Right - fluoroscopic guided: % relief. 05/27/23: Lumbar Medial Branch Block, Left L3, L4 medial branches and L5 Dorsal Ramus (2 levels, 3 nerves): 50% relief for 1 day 03/11/23: Peripheral Nerve Stimulation Temporary Lead Placement, Ultrasound- Guided, Suprascapular Nerve, Right: % relief. 02/04/23: Bilateral Diagnostic L3-L4-DR L5 MBB-100% for 28 hours 02/04/23: Therapeutic left GTB steroid injection-ongoing 80% pain relief 01/14/23: Diagnostic right suprascapular nerve block- 80% relief. [facility] Medical History (Updated 10/28/23 @ 13:47 by Elyse Thomason RN) PONV (postoperative nausea and vomiting) COPD (chronic obstructive pulmonary disease) CHF (congestive heart failure) Macular degeneration Dementia HTN (hypertension) Breast cancer Atherosclerotic cardiovascular disease Coronary artery disease Anemia Aortic stenosis, severe Primary osteoarthritis involving multiple joints Osteoporosis Benign essential HTN Asthma Allergic rhinitis Surgical History (Updated 10/28/23 @ 13:40 by Elyse Thomason RN) S/P TAVR (transcatheter aortic valve replacement) S/P cardiac catheterization History of hand surgery History of heart artery stent History of laminectomy History of kyphoplasty History of cataract surgery History of D&C Family History Father Hypertension Mother Thyroid cancer Sister Breast cancer Social History Household Members: Other Household Members Other:: assisted living [facility] Housing: Assisted Living Facility Housing Other:: [facility] Are you a primary day care assistant to a significant other at home: No Do you presently have visiting nurse or other home services: Yes (as above noted) Alcohol intake: never Patient Tobacco Use Status: Former Tobacco user Quit Date: early Tobacco use type: Cigarette Years Smoked: 5 e-Cigarette/Vaping Use: Never Used Second Hand Smoke Exposure: No Advance Directives Date on File: 02/06/21 service: No Current occupational status: retired Cognitive needs: Yes (walker/cane) Hearing needs: Yes (hearing aide) Vision needs: Yes (glasses) Review of Systems Const All systems reviewed & are unremarkable except as noted in HPI and below Physical Exam Vital Signs: Last Vital Signs Pulse 60 11/27/23 09:51 Resp 12 11/27/23 09:51 BP 129/60 11/27/23 09:51 Pulse Ox 96 11/27/23 09:51 Oxygen Delivery Method Room Air 11/27/23 09:51 BMI result Body Mass Index 29.1 General: Appears afebrile. Alert and oriented. Mood and affect appropriate. Follows and participates in conversation appropriately. Respiratory effort is unlabored. Able to transition from sit to stand unassisted. Ambulates with bilaterally normal heel strike and toe off. Results Reviewed Results Reviewed: No imaging is available for review. Assessment & Plan Assessment & Plan (1) Lumbar degenerative disc disease: Code(s): M51.36 - Other intervertebral disc degeneration, lumbar region Category: Medical (2) Lumbar spondylosis: Code(s): M47.816 - Spondylosis without myelopathy or radiculopathy, lumbar region Category: Medical (3) Chronic right shoulder pain: Code(s): M25.511 - Pain in right shoulder; G89.29 - Other chronic pain Category: Medical Plan The patient is unable to tolerate oxycodone, tramadol, codeine, meloxicam, and cephalexin. She is interested in different medications for pain relief. I prescribed the trial of oral morphine ER 10 mg once daily x 10 today. I advised the patient to discontinue medication if she noticed any side effects. We will follow up in two weeks via telephone or in the clinic to assess the response to morphine. Once we get approval for the StimRouter system, we will potentially plan for permanent stimulator placement with the StimRouter device. Scribed for Dr. Garcia by Michael Estrada, vice president medical affairs, on 11/27/2023. I, Dr. Garcia, have personally reviewed and agree with the information entered by the scribe. Medications: New morphine ER Partial Fill upon patient request. 10 mg PO DAILY 10 caps 0RF
[2023-11-27 09:51] VITALS: BP 129/60; PULSE 60; RESP 12; O2SAT 96; BMI 29.1
== END 2023-11-27 10:15 | disposition home or self-care (01) ==
PROVIDERS: PCP Internal Medicine; Visit Provider Internal Medicine
DX: M51.36 Other intervertebral disc degeneration, lumbar region (principal); M47.816 Spondylosis without myelopathy or radiculopathy, lumbar region; M25.511 Pain in right shoulder; G89.29 Other chronic pain
CPT/HCPCS: 99213

== ENCOUNTER → 2023-11-27 09:41 | Outpatient (BNVA) | payer BC, SELFPAY | PROVIDERS: PCP Internal Medicine; Visit Provider Internal Medicine ==

== ENCOUNTER 2024-01-16 01:14 | Inpatient (IN) | payer BC, SELFPAY ==
[2024-01-16] VITALS (7 sets, daily range): BP systolic 129–154; BP diastolic 54–67; PULSE 60–87; RESP 16–20; TEMP 36–36.8; O2SAT 95–99; BMI 28.3; BMI 30.9
--- NOTE | ~2024-01-16 | CT_ITS ---
EXAMINATION: CT abdomen pelvis wo IV con CLINICAL INFORMATION: Reason for Exam lower abdo pain, ?colitis vs diverticulitis COMPARISON: Prior CT 08/08/2023 TECHNIQUE: Multidetector volumetric imaging was performed from the superior aspect of the liver through the pubic symphysis 100 mL of Omnipaque 350 injected Sagittal and coronal reformatted images were obtained on the technologist's workstation. This CT examination was performed using dose optimization techniques as appropriate, variously including the following: *Automated exposure control *Adjustment of mA and/or kV according to patient size (this includes techniques or standardized protocols for targeted exams where dose is matched to indication/reason for exam; i.e. extremities or head) *Use of iterative reconstruction technique DLP: 937 mGy-cm FINDINGS: LOWER THORAX: Mild interstitial changes at lung bases bilaterally, interlobular septal thickening and peripheral bronchiectasis suggesting interstitial pneumonitis/interstitial fibrosis. HEPATOBILIARY: There are tiny hypodensities in the liver less than 5 mm, there are too small to characterize. GALLBLADDER: Gallbladder is distended, there are gallstones. SPLEEN: Spleen is normal in size. PANCREAS: Previously described pancreatic cystic structure body/tail of the pancreas on prior CT scan from 08/08/2023 has not significantly changed 1.2 cm. STOMACH AND GASTROINTESTINAL TRACT: Stomach is grossly unremarkable. There is mild circumferential wall thickening of the entire colon ascending, transverse, descending sigmoid and rectum, nonspecific CT finding and can be due to nondistention, also seen in patients with colitis, no pericolic fat stranding, evaluation is limited due to lack of contrast. No CT evidence of appendicitis. ADRENALS: No adrenal nodules. KIDNEYS/URETERS: No hydronephrosis, stones or solid mass lesions. URINARY BLADDER: Partially decompressed. PELVIC VISCERA: Heavily calcified uterus probably necrotic uterine fibroid. There is fullness of soft tissues surrounding the anorectal junction with stranding involving the right perirectal fat, concerning for possible proctitis. Cannot entirely rule out the possibility of underlying anal rectal lesion, however this area can be evaluated with rectal exam. PERITONEUM: No free air or fluid. LYMPH NODES: No lymphadenopathy. VASCULAR:Aortic vascular calcifications, no aneurysm. BONES, ABDOMINAL WALL AND SOFT TISSUES: Postsurgical changes of vertebroplasty L1, advanced degenerative disc disease with vacuum phenomenon at all levels unchanged. Hardware screw through the left SI joint in place intact. CT/CT abdomen pelvis wo IV con IMPRESSION: 1. There is circumferential wall thickening of the entire colon, nonspecific CT finding and can be due to nondistention, also seen in patients with colitis,. There is however No pericolic fat stranding,. Evaluation is limited due to lack of contrast. Please correlate clinically. 2. There is fullness of soft tissues surrounding the anorectal junction with stranding involving the right perirectal fat, concerning for possible proctitis. Cannot entirely rule out the possibility of underlying anal rectal lesion, ATTENTION TO CORRELATION WITH FOLLOW-UP RECTAL EXAM. 3. Markedly distended gallbladder and there are gallstones. 4. Redemonstration of pancreatic cystic structure body/tail of the pancreas unchanged, continued surveillance recommended, consider follow-up MRI MRCP in 6 months. 5. Mild interstitial lung disease, peripheral bronchiectasis suggesting interstitial pulmonary fibrosis at lung bases. (Referring physician staff is being called, by physician staff assistance, to be alerted of the above critical findings and recommendations.) 01/16/2024 7:54 AM
--- NOTE | ~2024-01-16 | CT_ITS ---
History: Cholecystitis Procedure performed: 1. CT-guided placement of a cholecystostomy tube Physician: Shabbir Brewer MD FSIR Anesthesia: IV moderate sedation with intravenous fentanyl and versed was administered under my direct supervision with continuous physiologic monitoring for a total of 30 minutes. Specimen: 10 mL of bilious fluid. Drain: 8 [place] locking pigtail Estimated blood loss: Minimal Complications: None Procedure in detail: Informed and written consent was obtained from healthcare proxy. Patient position supine on angiography table. Preliminary CT scan shows distended gallbladder. The overlying skin was prepped and draped. 1% lidocaine was injected subcutaneously and extended to the hepatic capsule at the planned access site. A small incision was made in the skin with a #[address] guidance, a peerTransfer needle catheter was advanced through a thin section of hepatic parenchyma before entering the gallbladder. We then coiled a Bower wire over which dilatation was performed until an 8 [place] locking pigtail catheter could be placed into the gallbladder lumen. This was sutured at the skin and connected to gravity drainage after obtaining a specimen for the lab. A sterile dressing was applied. Summary: Successful CT-guided placement of a cholecystostomy tube as described.
--- NOTE | ~2024-01-16 | US_ITS ---
EXAMINATION: US ABDOMEN LIMITED CLINICAL INFORMATION: Distended gallbladder with gallstones. COMPARISON: CT abdomen and pelvis 01/16/2024. Ultrasound abdomen limited 02/06/2022 and 02/06/2021. TECHNIQUE: Real-time imaging of the right upper quadrant abdominal viscera. FINDINGS: PANCREAS: Normal. LIVER: Normal. The liver is normal in size. The liver contour is normal. Parenchymal echogenicity is normal. No focal hepatic lesion. There is no intrahepatic biliary duct dilatation seen. GALLBLADDER: Gallbladder is distended, there are multiple gallstones, there is mild thickening of gallbladder wall measuring up to 3.4 mm, tenderness pressing on the gallbladder, combined raising suspicion for possible cholecystitis. COMMON BILE DUCT: Borderline dilated in caliber measuring 0.9 cm in diameter. RIGHT KIDNEY: Normal. No hydronephrosis. No renal calculi or focal parenchymal lesions. The kidney measures 11.0 cm in maximum dimension. FREE FLUID: None. US/US abdomen limited IMPRESSION: Suspicion for acute cholecystitis evident by distended gallbladder, gallbladder wall thickening, gallstones, positive Parker sign and mildly dilated common bile duct 9 mm. Surgical evaluation is warranted, HIDA scan could be utilized for further investigation if clinically indicated. (Referring physician staff is being called, by physician staff assistance, to be alerted of the above critical findings and recommendations.) 01/18/2024 4:59 PM
--- NOTE | ~2024-01-16 | XR_ITS ---
EXAMINATION: XR FOOT, RIGHT CLINICAL INFORMATION: Pain COMPARISON: None available. TECHNIQUE: AP, lateral, and oblique views of the right foot. FINDINGS: No fracture or dislocation. There is arthritis at the IP joint of the great toe with joint space narrowing and osteophyte formation. There may be slight lateral subluxation of the distal phalanx with respect to the proximal phalanx at the first IP joint. Joint spaces are otherwise normal. There is a plantar calcaneal spur. XR/XR foot RT 2V IMPRESSION: Arthritis at the IP joints of the great toe and question mild subluxation. Plantar calcaneal spur.
--- NOTE | 2024-01-16 02:12 | ECG_ITS ---
Test Reason : abd pain Blood Pressure : / mmHG Vent. Rate : 067 BPM Atrial Rate : 067 BPM P-R Int : 182 ms QRS Dur : 114 ms QT Int : 416 ms P-R-T Axes : 030 -28 061 degrees QTc Int : 439 ms Normal sinus rhythm Incomplete left bundle branch block Left ventricular hypertrophy with repolarization abnormality ( R in aVL , Jesu product ) Abnormal ECG When compared with ECG of 28-OCT-2023 14:54, Incomplete left bundle branch block is now Present Minimal criteria for Septal infarct are no longer Present Referred By: Generic ED Physician Electronically Signed By:Yousif Palacios
[2024-01-16 02:44] LABS: Basophils Percent Auto 0.3 % (0-2); Eosinophils Percent Auto 0.4 % (0-4); Hematocrit 27.1 % (37.0-47.0); Hemoglobin 9.4 g/dl (12.0-16.0); Imm Gran Abs Auto 0.04 X10*3/uL (0.00-0.03); Imm Gran Pct Auto 0.4 % (0.0-0.4); Lymphocytes Percent Auto 20.9 % (20-40); MANUAL DIFF FLAG NO; Mean Corpuscular HGB Conc 34.7 g/dl (31.0-35.0); Mean Corpuscular Hemoglobin 32.5 pg (27.0-33.0); Mean Corpuscular Volume 93.8 fL (80.0-98.0); Monocytes Absolute Auto 0.7 X10*3/uL (0.1-1.2); Monocytes Percent Auto 6.7 % (2-11); Neutrophils Absolute Auto 6.9 x10*3/uL (2.0-8.3); Neutrophils Percent Auto 71.3 % (45-73); Platelet Count 200 X10*3/uL (160-400); Red Blood Count 2.89 X10*6/uL (4.20-5.50); Red Cell Distribution Width 13.8 % (11.0-16.0); White Blood Count 9.7 X10*3/uL (4.8-10.8)
--- NOTE | 2024-01-16 02:54 | MHC.EDTECH ---
PATIENT EKG TAKEN AND WAS READ BY PROVIDER ,BLOOD DRAWN .FLU/COVID SWAB COLLECTED AND URINE SAMPLE ALL SENT TO LAB .
[2024-01-16 02:58] LABS: Appearance Urine Cloudy; Color Urine Dark Yellow; Glucose Urine UA Negative (Negative); Leukocyte Esterase Urine Small (1+) (Negative); Nitrite Urine Negative (Negative); PH 5.5 (5.0-9.0); Specific Gravity - Urine 1.025 (1.005-1.025); UMIC TRIGGER UACC YES; Urine Blood Negative (Negative); Urine Ketones Trace mg/dL (Negative); Urine Protein Trace mg/dL (Neg-Trace)
[2024-01-16 02:59] LABS: Alanine Aminotransferase 61 U/L (0-31); Albumin Level 3.7 g/dL (3.5-5.0); Alkaline Phosphatase 91 U/L (39-117); Anion Gap 15 (12-20); Aspartate Amino Transferase 58 U/L (5-31); Bilirubin Direct 0.3 mg/dL (0.0-0.5); Bilirubin Total 0.5 mg/dL (0.0-1.0); Blood Urea Nitrogen 21 mg/dL (9-16); Calcium 8.9 mg/dL (8.4-10.2); Carbon Dioxide 17 mmol/L (22-29); Chloride 102 mmol/L (96-108); Creatinine Clr Calc Pharmacy 40.6; Estimated Glomerular Filt Rate 52; Glucose Random 111 mg/dL (60-115); Lipase 17 U/L (8-78); Potassium 3.8 mmol/L (3.3-5.1); Sodium 130 mmol/L (135-145); Total Protein 6.7 g/dL (6.5-8.0)
[2024-01-16 03:01] LABS: IDNOW Serial# 152EDE1D; IDNOW Serial# 6674DD1D; Influenza A Negative (Negative); Influenza B2 Negative (Negative)
[2024-01-16 03:02] LABS: COVID-19 Test Negative (Negative)
[2024-01-16 03:05] LABS: Troponin-I High Sensitivity 17.1 ng/L (<3.5-17.0)
[2024-01-16 03:11] LABS: Bacteria Urine 1+ (None Seen); RBC Urine 0-2 /HPF (0-2); UACC Culture Trigger YES
[2024-01-16 05:20] LABS: Troponin-I High Sensitivity 21.9 ng/L (<3.5-17.0)
--- NOTE | 2024-01-16 05:43 | ED.GENADULT ---
HPI - General Adult General Chief complaint: Abdominal Pain Stated complaint: lwr adb pain/constipation/diarhhea tonight Time Seen by Provider: 01/16/24 05:31 History of Present Illness HPI narrative: The patient is an 88-year-old woman who lives at an assisted living facility. Apparently the patient felt somewhat under the weather 2 days ago on . She may have had some mild abdominal discomfort. Yesterday, on Thursday, at she thought she was constipated but then she had a bowel movement and then had loose stools after that. She has lower abdominal discomfort that was worse earlier but is still somewhat persistent. She rates it as a 3 or a 4/10 at the moment. No definite fever. She has had some nausea but no vomiting. She ate some toast at dinner time yesterday evening. She has a abdominal discomfort that she currently is rating as a 4/10 and which she says is mostly in the lower abdomen. The discomfort does not lateralize. Related Data Home Medications ?Medication ?Instructions ?Recorded ?Confirmed ferrous sulfate 325 mg (65 mg 325 mg PO DAILY 12/31/20 01/16/24 iron) tablet fexofenadine 180 mg tablet 180 mg PO BEDTIME 12/31/20 01/16/24 vitamin E succinate 268 mg (400 400 unit PO DAILY 12/31/20 01/16/24 unit) tablet cyanocobalamin (vitamin B-12) 1,000 mcg PO DAILY 02/06/21 01/16/24 1,000 mcg tablet pyridoxine (vitamin B6) 100 mg 100 mg PO DAILY 02/06/21 01/16/24 tablet cholecalciferol (vitamin D3) 25 25 mcg PO DAILY 11/05/21 01/16/24 mcg (1,000 unit) capsule acetaminophen 500 mg tablet 1,000 mg PO TID Pain 05/18/23 01/16/24 (Tylenol Extra Strength) albuterol sulfate 90 mcg/actuation 2 puff inhalation Q6H PRN 07/08/23 01/16/24 aerosol inhaler (ProAir HFA) Bronchodilation alendronate 70 mg tablet 70 mg PO MO@0900 08/08/23 01/16/24 ascorbic acid (vitamin C) 500 mg 500 mg PO DAILY 08/08/23 01/16/24 tablet (Vitamin C) diphenhydramine HCl 25 mg capsule 25 mg PO DAILY PRN Itching 08/08/23 01/16/24 (Benadryl) glucosam 750 mg-chondroi 100 1 tab PO BID 08/08/23 01/16/24 mg-hyalur 1.65 mg-CF borate 108 mg tablet ([facility]) lidocaine 4 % topical patch 1 patch topical DAILY 08/08/23 01/16/24 vit C 250 mg-vit E 90 mg-zinc 40 1 tab PO BID 08/08/23 01/16/24 mg-copper 1 [id number]-cgeokr-ncgqnl capsule (PreserVision AREDS-2) calcium carbonate 600 mg-vitamin 1 tab PO BEDTIME 01/16/24 01/16/24 D3 5 mcg (200 unit) tablet ceramides 1,3,6-II (CeraVe topical 1 appl topical 5XD PRN SEBORRHEIC 01/16/24 01/16/24 cream) KERATOSES doxycycline hyclate 100 mg capsule 100 mg PO DAILY PRN Dental 01/16/24 01/16/24 Prophylaxis omeprazole 20 mg capsule,delayed 20 mg PO DAILY@0630 01/16/24 01/16/24 release oxycodone 5 mg tablet 5 mg PO DAILY PRN Pain (Scale 01/16/24 01/16/24 Score 4-6) Previous Rx's ?Medication ?Instructions ?Recorded blood pressure monitor #1 ea 07/15/21 metoprolol tartrate 25 mg tablet 25 mg PO BID #180 tabs 04/21/23 amitriptyline 10 mg tablet 10 mg PO BEDTIME #90 tabs 07/15/23 fluticasone propionate 220 2 puff inhalation BID asthma 30 09/10/23 mcg/actuation HFA aerosol inhaler days #12 grams atorvastatin 80 mg tablet 80 mg PO BEDTIME #90 tabs 10/07/23 nifedipine 30 mg tablet,extended 30 mg PO DAILY #90 tabs 12/28/23 release aspirin 81 mg tablet,delayed 81 mg PO DAILY #90 tabs 01/04/24 release Allergies Allergy/AdvReac Type Severity Reaction Status Date / Time meperidine [From Demerol] Allergy Severe Nausea and Verified 01/16/24 02:09 Vomiting amoxicillin [AMOXICILLIN] Allergy Intermediate Rash Verified 01/16/24 02:09 cephalexin Allergy Intermediate Itching Verified 01/16/24 02:09 erythromycin base Allergy Intermediate Itching Verified 01/16/24 02:09 meloxicam Allergy Intermediate Abdominal Verified 01/16/24 02:09 Pain nitrofurantoin Allergy Intermediate Rash Verified 01/16/24 02:09 [From Macrobid] Penicillins Allergy Intermediate Rash Verified 01/16/24 02:09 Sulfa (Sulfonamide Allergy Intermediate Rash Verified 01/16/24 02:09 Antibiotics) [SULFA(SULFONAMIDE ANTIBIOTICS)] tramadol Allergy Intermediate Nausea and Verified 01/16/24 02:09 Vomiting codeine [CODEINE] AdvReac Intermediate Nausea Verified 01/16/24 02:09 Review of Systems Review of Systems: Yes all other systems are reviewed and are negative [facility] Past Medical History Medical History (Updated 01/16/24 @ 09:28 by Rudy Montejo MD) PONV (postoperative nausea and vomiting) COPD (chronic obstructive pulmonary disease) CHF (congestive heart failure) Macular degeneration Dementia HTN (hypertension) Breast cancer Atherosclerotic cardiovascular disease Coronary artery disease Anemia Aortic stenosis, severe Primary osteoarthritis involving multiple joints Osteoporosis Benign essential HTN Asthma Allergic rhinitis Surgical History (Updated 10/28/23 @ 13:40 by Elyse Thomason RN) S/P TAVR (transcatheter aortic valve replacement) S/P cardiac catheterization History of hand surgery History of heart artery stent History of laminectomy History of kyphoplasty History of cataract surgery History of D&C Family History Family History Father Hypertension Mother Thyroid cancer Sister Breast cancer Social History Social History Household Members: Other Household Members Other:: assisted living [facility] Housing: Assisted Living Facility Housing Other:: [facility] Are you a primary care taker to a significant other at home: No Do you presently have visiting nurse or other home services: Yes (as above noted) Alcohol intake: never Patient Tobacco Use Status: Former Tobacco user Quit Date: early Tobacco use type: Cigarette Years Smoked: 5 Smoked in Last 30 Days: No e-Cigarette/Vaping Use: Never Used Second Hand Smoke Exposure: No Use of substances other than those prescribed or required for medical reasons: No Advance Directives: Yes Advance Directives on File: Yes Advance Directives Date on File: 02/06/21 Do you have a plan to hurt others: No Plan service: No Current occupational status: retired Cognitive needs: Yes (walker/cane) Hearing needs: Yes (hearing aide) Vision needs: Yes (glasses) Physical Exam ED Vital Signs: Vital Signs - 24 hr 01/16/24 02:04 01/16/24 04:29 01/16/24 05:40 Temperature 97.7 F 97.3 F 98.2 F Pulse Rate 73 60 79 Respiratory Rate 16 20 19 Blood Pressure 133/55 L 138/54 L 147/59 H Pulse Oximetry 97 98 97 Oxygen Delivery Method Room Air Room Air Room Air 01/16/24 08:00 Temperature 96.8 F Pulse Rate 87 Respiratory Rate 19 Blood Pressure 154/61 H Pulse Oximetry 99 Oxygen Delivery Method Room Air BMI result Body Mass Index 28.3 Const Other: The patient is a very pleasant older woman who looks young for her age. She is awake and alert. She does not appear in obvious distress. HENMT Other: Face is symmetrical, mucous membranes moist Eyes Other: Pupils are round equal, conjunctivae are clear Neck Neck: Yes no JVD Resp Effort & Inspection: normal respiratory effort Auscultation: clear to auscultation bilaterally Cardio Other: The patient had a regular rate and rhythm with no definite murmur GI Other: Abdomen is soft. This diffuse tenderness throughout the lower abdomen. No definite rebound or guarding Back/Spine/Pelvis Other: No CVA percussion tenderness in the flanks Skin Other: Pale and dry Neuro Other: The patient is awake and alert with a normal mental status. She seems grossly neurologically intact Extrem Other: No peripheral edema Medications Administered Discontinued Medications Generic Name Dose Route Start Last Admin Trade Name Freq PRN Reason Stop Dose Admin Sodium Chloride 1,000 mls @ 999 mls/hr 01/16/24 05:45 01/16/24 06:36 Ns IV 01/16/24 06:45 Not Given .Q1H1M ERICK Sodium Chloride 1,000 mls @ 999 mls/hr 01/16/24 09:00 01/16/24 10:24 Ns IV 01/16/24 10:00 Infused .Q1H1M ERICK Infusion Ondansetron HCl 4 mg 01/16/24 06:35 01/16/24 07:02 Ondansetron Odt 4 Mg Tab.Rapdis TRANSLINGU 01/16/24 06:36 4 mg ONCE ONE Administration Medical Decision Making Medical Decision Making [facility] Narrative: The patient is an 88-year-old female who presents with 1-2 days of abdominal discomfort and about 12 hours of loose stools. She is afebrile. She has a normal white count and differential. She has lower abdominal tenderness. She reports previous history of colitis. Initially we were unable to obtain IV access. A noncontrast CT was done. CT shows circumferential wall thickening of the entire colon possibly indicative colitis although by lack of IV contrast. There was also fullness of soft tissue surrounding the anorectal junction with stranding involving the perirectal fat concerning for possible proctitis. Clinically I did not think the patient was toxic or septic. Ultimately we were able to get an IV and the patient will be given IV fluids. The patient has not yet produced any stool for testing. Stool studies have been ordered and a lactate has also been ordered. Since the patient seems to feel quite unwell I suspect that she probably does have some kind of a pancolitis syndrome and I think hospitalization with Gastroenterology consult would be reasonable. Lab Data 01/16/24 02:38 01/16/24 02:38 Labs: Lab Results 01/16/24 01/16/24 01/16/24 Range/Units 02:31 02:38 02:52 WBC 9.7 (4.8-10.8) X10*3/uL RBC 2.89 L (4.20-5.50) X10*6/uL Hgb 9.4 L (12.0-16.0) g/dl Hct 27.1 L (37.0-47.0) % MCV 93.8 (80.0-98.0) fL MCH 32.5 (27.0-33.0) pg MCHC 34.7 (31.0-35.0) g/dl RDW 13.8 (11.0-16.0) % Plt Count 200 D (160-400) X10*3/uL MPV 10.0 (9.4-12.3) fL Immature Gran % (Auto) 0.4 (0.0-0.4) % Neut % (Auto) 71.3 (45-73) % Lymph % (Auto) 20.9 (20-40) % Bullock % (Auto) 6.7 (2-11) % Eos % (Auto) 0.4 (0-4) % Baso % (Auto) 0.3 (0-2) % Lymph # (Auto) 2.0 (1.2-4.9) X10*3/uL Bullock # (Auto) 0.7 (0.1-1.2) X10*3/uL Eos # (Auto) 0.0 (0.0-0.4) X10*3/uL Baso # (Auto) 0.0 (0.0-0.2) X10*3/uL Abs Immat Gran (auto) 0.04 H (0.00-0.03) X10*3/uL Absolute Neuts (auto) 6.9 (2.0-8.3) x10*3/uL Absolute Nucleated RBC 0.000 (0.0-0.012) X10*3/uL Nucleated RBC % (auto) 0.0 (0.0-0.2) /100WBC Sodium 130 L (135-145) mmol/L Potassium 3.8 (3.3-5.1) mmol/L Chloride 102 (96-108) mmol/L Carbon Dioxide 17 L (22-29) mmol/L Anion Gap 15 (12-20) BUN 21 H (9-16) mg/dL Creatinine 1.00 (0.5-1.4) mg/dL Estim Creat Clear Calc 40.6 Estimated GFR 52 POC Glucose (60-115) mg/dL Random Glucose 111 (60-115) mg/dL Lactic Acid (0.5-2.0) mmol/L Calcium 8.9 (8.4-10.2) mg/dL Total Bilirubin 0.5 (0.0-1.0) mg/dL Direct Bilirubin 0.3 (0.0-0.5) mg/dL AST 58 H (5-31) U/L ALT 61 H (0-31) U/L Alkaline Phosphatase 91 (39-117) U/L Troponin I High Sens 17.1 H (<3.5-17.0) ng/L C-Reactive Protein 4.13 H (< or = 0.50) mg/dL Total Protein 6.7 (6.5-8.0) g/dL Albumin 3.7 (3.5-5.0) g/dL Lipase 17 (8-78) U/L Urine Color Dark Yellow Urine Appearance Cloudy Urine pH 5.5 (5.0-9.0) Ur Specific Lincoln 1.025 (1.005-1.025) Urine Protein Trace (Neg-Trace) mg/dL Urine Glucose (UA) Negative (Negative) mg/dL Urine Ketones Trace (Negative) mg/dL Urine Blood Negative (Negative) Urine Nitrite Negative (Negative) Ur Leukocyte Esterase Small (1+) H (Negative) Urine RBC 0-2 (0-2) /HPF Urine WBC 6-10 H (0-5) /HPF Ur Squamous Epith Cells 6-10 (0-2) /HPF Urine Bacteria 1+ (None Seen) Hyaline Casts 3-5 (0-2) /LPF COVID-19 (WAYLON) Negative (Negative) COVID-19 Clin Com See Note Influenza Type A (LONA) Negative (Negative) Influenza Type B (LONA) Negative (Negative) Influenza A & B Note See Note 01/16/24 01/16/24 01/16/24 Range/Units 04:53 07:39 10:23 WBC (4.8-10.8) X10*3/uL RBC (4.20-5.50) X10*6/uL Hgb (12.0-16.0) g/dl Hct (37.0-47.0) % MCV (80.0-98.0) fL MCH (27.0-33.0) pg MCHC (31.0-35.0) g/dl RDW (11.0-16.0) % Plt Count (160-400) X10*3/uL MPV (9.4-12.3) fL Immature Gran % (Auto) (0.0-0.4) % Neut % (Auto) (45-73) % Lymph % (Auto) (20-40) % Bullock % (Auto) (2-11) % Eos % (Auto) (0-4) % Baso % (Auto) (0-2) % Lymph # (Auto) (1.2-4.9) X10*3/uL Bullock # (Auto) (0.1-1.2) X10*3/uL Eos # (Auto) (0.0-0.4) X10*3/uL Baso # (Auto) (0.0-0.2) X10*3/uL Abs Immat Gran (auto) (0.00-0.03) X10*3/uL Absolute Neuts (auto) (2.0-8.3) x10*3/uL Absolute Nucleated RBC (0.0-0.012) X10*3/uL Nucleated RBC % (auto) (0.0-0.2) /100WBC Sodium (135-145) mmol/L Potassium (3.3-5.1) mmol/L Chloride (96-108) mmol/L Carbon Dioxide (22-29) mmol/L Anion Gap (12-20) BUN (9-16) mg/dL Creatinine (0.5-1.4) mg/dL Estim Creat Clear Calc Estimated GFR POC Glucose 109 (60-115) mg/dL Random Glucose (60-115) mg/dL Lactic Acid 0.7 (0.5-2.0) mmol/L Calcium (8.4-10.2) mg/dL Total Bilirubin (0.0-1.0) mg/dL Direct Bilirubin (0.0-0.5) mg/dL AST (5-31) U/L ALT (0-31) U/L Alkaline Phosphatase (39-117) U/L Troponin I High Sens 21.9 H (<3.5-17.0) ng/L C-Reactive Protein (< or = 0.50) mg/dL Total Protein (6.5-8.0) g/dL Albumin (3.5-5.0) g/dL Lipase (8-78) U/L Urine Color Urine Appearance Urine pH (5.0-9.0) Ur Specific Lincoln (1.005-1.025) Urine Protein (Neg-Trace) mg/dL Urine Glucose (UA) (Negative) mg/dL Urine Ketones (Negative) mg/dL Urine Blood (Negative) Urine Nitrite (Negative) Ur Leukocyte Esterase (Negative) Urine RBC (0-2) /HPF Urine WBC (0-5) /HPF Ur Squamous Epith Cells (0-2) /HPF Urine Bacteria (None Seen) Hyaline Casts (0-2) /LPF COVID-19 (WAYLON) (Negative) COVID-19 Clin Com Influenza Type A (LONA) (Negative) Influenza Type B (LONA) (Negative) Influenza A & B Note Discharge Plan Discharge Clinical Impression: Colitis Patient Disposition: Admitted As Inpatient Print Language: Faroese
[2024-01-16 05:54] LABS: C Reactive Protein 4.13 mg/dL (< or = 0.50)
--- NOTE | 2024-01-16 06:19 | PC.NURSE ---
Pt very difficult stick, attempts made by two RNs for IV access not successful at this time, provider Gustabo made aware.
--- NOTE | 2024-01-16 06:30 | PC.NURSE ---
EJ attempt by provider not successful at this time.
[2024-01-16] MEDS: Ondansetron ODT 4 MG TAB.RAPDIS TRANSLINGU (07:02)
[2024-01-16 07:49] LABS: Glucose, Whole Blood 109 mg/dL (60-115)
--- NOTE | 2024-01-16 08:46 | PC.NURSE ---
pt speaking w/ ED provider in regards to being admitted into the hospital. 22gIV placed in the left wrest. pt was a difficult stick. access wrapped in gauze for safety precautions. belongings list completed by [email or web address]
[2024-01-16] MEDS: 0.9 % Sodium Chloride 1,000 ML 999 ML IV (09:03)
--- NOTE | 2024-01-16 10:34 | PHA.MEDREC ---
Pharmacy Consult ? Medication Reconciliation Pharmacy has completed the medication reconciliation.Med rec complete, patient came with list and also matched with pharmacy claim history.
[2024-01-16 10:38] LABS: Lactic Acid 0.7 mmol/L (0.5-2.0)
--- NOTE | 2024-01-16 11:15 | P.HPHOSP_ITS ---
History of Present Illness Date of Service: 01/16/24 Attending physician on admission: [facility] Chief Complaint: Abdominal pain, diarrhea, nausea Pt is an 88-year-old female with a PMH significant for?HFpEF, aortic valve replacement s/p TAVR, mild dementia, hx of breast cancer, CAD, osteoporosis, asthma, lifelong anemia, and macular degeneration who presents to the ED from assisted living with?3 days of abdominal pain and cramping. Patient states symptoms began on when she had sudden onset lower abdominal pain and cramping with need to evacuate bowels. Symptoms largely resolved after bowel movement, which was largely normal in consistency. No hematochezia. Patient with chronically dark colored stools from iron supplementation. Later that night symptoms returned, and then again on Thursday morning that was associated with some nausea but no vomiting. Last night/early this morning bowel movements turned loose with liquid consistency. Again experienced nausea but no vomiting. Rates abdominal pain an 8/10 at its worst a minor 2/10 during remission. Has been associated with anorexia and reduced p.o. intake. At the urging of family, patient then presented to the ED for further evaluation. Denies fever, chills. No chest pain/pressure, palpitations. Also denies UTI symptoms: No polyuria or dysuria. Of note, patient was admitted to the hospital in 08/12/2023 for similar symptoms and was treated for UTI and transfused 1 unit PRBCs. Stool was positive for occult blood, but patient declined inpatient GI evaluation at that time. In the ED pt was slightly hypertensive up to 154/61, vitals otherwise WNL. Labs were significant for sodium 130, AST 58, ALT 61, initial troponin 17.1 with repeat flat at 21.9, C-reactive protein 4.13. Stable normocytic anemia of 9.4/27.1. UA likely negative for UTI. Tested negative for COVID, RSV, flu. CT?of abdomen and pelvis found circumferential wall thickening of the entire colon without pericolonic fat stranding, but suggestive possible colitis. Also found fullness of soft tissue surrounding and erectile junction concerning for possible proctitis, though can not rule out possibility of underlying anal rectal lesion. Additionally, found marked distention of gallbladder with gallstones, and redemonstration of pancreatic cyst structure in body/tail, unchanged from previous. EKG demonstrated normal sinus rhythm without evidence of significant ST elevations or depressions. Pt was treated with IVF and ondansetron. Pt will be admitted to the hospital for for treatment further evaluation of lower abdominal pain in the setting of likely pancolitis. Review of Systems 2 Review of Systems: Lower abdominal pain and cramping And diarrhea Nausea, no vomiting Anorexia No fever, chills Denies chest pain/pressure, palpitations No Shortness of breath PMFSH Medical History PONV (postoperative nausea and vomiting) COPD (chronic obstructive pulmonary disease) CHF (congestive heart failure) Macular degeneration Dementia HTN (hypertension) Breast cancer Atherosclerotic cardiovascular disease Coronary artery disease Anemia Aortic stenosis, severe Primary osteoarthritis involving multiple joints Osteoporosis Benign essential HTN Asthma Allergic rhinitis Family History Father Hypertension Mother Thyroid cancer Sister Breast cancer Surgical History S/P TAVR (transcatheter aortic valve replacement) S/P cardiac catheterization History of hand surgery History of heart artery stent History of laminectomy History of kyphoplasty History of cataract surgery History of D&C Social History Household Members: None Household Members Other:: assisted living [facility] Housing: Assisted Living Facility Housing Other:: [facility] Are you a primary career development facilitator to a significant other at home: No Do you presently have visiting nurse or other home services: No Alcohol intake: never Patient Tobacco Use Status: Former Tobacco user Quit Date: early Tobacco use type: Cigarette Years Smoked: 5 Smoked in Last 30 Days: No e-Cigarette/Vaping Use: Never Used Second Hand Smoke Exposure: No Use of substances other than those prescribed or required for medical reasons: No Have you been hit, kicked, punched, or otherwise hurt by someone within the past year? If so, by whom?: No Do you feel safe in your current relationship?: No Current Relationship Is there a partner from a previous relationship who is making you feel unsafe now?: No Are you made to feel afraid or neglected: No Advance Directives: Yes Advance Directives on File: Yes Advance Directives Date on File: 02/06/21 Do you have a plan to hurt others: No Plan Recently lost weight without trying: No How much weight loss: Not applicable Eating poorly because of decreased appetite: No Nutrition screen score: 0 Nutrition Risks: No Nutritional Risk Patient : No : No Poor oral hygiene: No service: No Current occupational status: retired Cognitive needs: Yes (walker/cane) Hearing needs: Yes (hearing aide) Vision needs: Yes (glasses) Meds Allergies Allergy/AdvReac Type Severity Reaction Status Date / Time meperidine [From Demerol] Allergy Severe Nausea and Verified 01/16/24 02:09 Vomiting amoxicillin [AMOXICILLIN] Allergy Intermediate Rash Verified 01/16/24 02:09 cephalexin Allergy Intermediate Itching Verified 01/16/24 02:09 erythromycin base Allergy Intermediate Itching Verified 01/16/24 02:09 meloxicam Allergy Intermediate Abdominal Verified 01/16/24 02:09 Pain nitrofurantoin Allergy Intermediate Rash Verified 01/16/24 02:09 [From Macrobid] Penicillins Allergy Intermediate Rash Verified 01/16/24 02:09 Sulfa (Sulfonamide Allergy Intermediate Rash Verified 01/16/24 02:09 Antibiotics) [SULFA(SULFONAMIDE ANTIBIOTICS)] tramadol Allergy Intermediate Nausea and Verified 01/16/24 02:09 Vomiting codeine [CODEINE] AdvReac Intermediate Nausea Verified 01/16/24 02:09 Home Medications ?Medication ?Instructions ?Recorded ?Confirmed ?Last Taken ?Type ferrous sulfate 325 mg (65 mg 325 mg PO DAILY 12/31/20 01/16/24 03/11/23 History iron) tablet fexofenadine 180 mg tablet 180 mg PO BEDTIME 12/31/20 01/16/24 Unknown History vitamin E succinate 268 mg (400 400 unit PO DAILY 12/31/20 01/16/24 09/09/23 History unit) tablet cyanocobalamin (vitamin B-12) 1,000 mcg PO DAILY 02/06/21 01/16/24 09/09/23 History 1,000 mcg tablet pyridoxine (vitamin B6) 100 mg 100 mg PO DAILY 02/06/21 01/16/24 09/09/23 History tablet cholecalciferol (vitamin D3) 25 25 mcg PO DAILY 11/05/21 01/16/24 03/11/23 History mcg (1,000 unit) capsule acetaminophen 500 mg tablet 1,000 mg PO TID Pain 05/18/23 01/16/24 09/09/23 History (Tylenol Extra Strength) albuterol sulfate 90 mcg/actuation 2 puff inhalation Q6H PRN 07/08/23 01/16/24 Unknown History aerosol inhaler (ProAir HFA) Bronchodilation alendronate 70 mg tablet 70 mg PO MO@0900 08/08/23 01/16/24 09/09/23 History ascorbic acid (vitamin C) 500 mg 500 mg PO DAILY 08/08/23 01/16/24 09/09/23 History tablet (Vitamin C) diphenhydramine HCl 25 mg capsule 25 mg PO DAILY PRN Itching 08/08/23 01/16/24 09/09/23 History (Benadryl) glucosam 750 mg-chondroi 100 1 tab PO BID 08/08/23 01/16/24 09/09/23 History mg-hyalur 1.65 mg-CF borate 108 mg tablet ([facility] [employer] [facility]) lidocaine 4 % topical patch 1 patch topical DAILY 08/08/23 01/16/24 09/09/23 History vit C 250 mg-vit E 90 mg-zinc 40 1 tab PO BID 08/08/23 01/16/24 09/09/23 History mg-copper 1 ro-vevrgy-zypvui capsule (PreserVision AREDS-2) calcium carbonate 600 mg-vitamin 1 tab PO BEDTIME 01/16/24 01/16/24 Unknown History D3 5 mcg (200 unit) tablet ceramides 1,3,6-II (CeraVe topical 1 appl topical 5XD PRN SEBORRHEIC 01/16/24 01/16/24 Unknown History cream) KERATOSES doxycycline hyclate 100 mg capsule 100 mg PO DAILY PRN Dental 01/16/24 01/16/24 Unknown History Prophylaxis omeprazole 20 mg capsule,delayed 20 mg PO DAILY@0630 01/16/24 01/16/24 Unknown History release oxycodone 5 mg tablet 5 mg PO DAILY PRN Pain (Scale 01/16/24 01/16/24 Unknown History Score 4-6) Physical Exam 2 Vital Signs and Narrative: Vital Signs: Last Vital Signs Temp 96.8 F 01/16/24 08:00 Pulse 87 01/16/24 08:00 Resp 19 01/16/24 08:00 BP 154/61 H 01/16/24 08:00 Pulse Ox 99 01/16/24 08:00 O2 Del Method Room Air 01/16/24 08:00 BMI result Body Mass Index 28.3 Constitutional: Alert, in no acute distress. Mental Status: Oriented to person, place and time. Eyes: Pupils are equal, round, and reactive to light. Ear, Nose, and Throat: Oropharynx clear, mucous membranes moist. Ears and nose without deformities. Trachea midline. Respiratory: Clear to auscultation bilaterally. No wheezing, rales, or rhonchi. Cardiovascular: S1, S2 regular. No murmurs, rubs, or gallops. Gastrointestinal: Abdomen soft, non-distended, mild lower abd tenderness, especially suprapubic. No RUQ tenderness. Normal bowel sounds. Neurologic: Cranial nerves II-XII are grossly intact bilaterally. No focal neurological deficits. Moves all extremities spontaneously. Skin: Warm, dry. Musculoskeletal: No cyanosis or clubbing. Extremities: 1+ bilateral pitting edema of lower extremities. Psychiatric: Normal mood and affect. Results Labs 01/17/24 05:58 01/17/24 05:58 Labs: Laboratory Results - last 24 hr 01/16/24 01/16/24 01/16/24 02:31 02:38 02:52 MCV 93.8 MCH 32.5 MCHC 34.7 RDW 13.8 Plt Count 200 D MPV 10.0 Immature Gran % (Auto) 0.4 Neut % (Auto) 71.3 Lymph % (Auto) 20.9 Ware % (Auto) 6.7 Eos % (Auto) 0.4 Baso % (Auto) 0.3 Lymph # (Auto) 2.0 Ware # (Auto) 0.7 Eos # (Auto) 0.0 Baso # (Auto) 0.0 Abs Immat Gran (auto) 0.04 H Absolute Neuts (auto) 6.9 Absolute Nucleated RBC 0.000 Nucleated RBC % (auto) 0.0 Anion Gap 15 Estim Creat Clear Calc 40.6 Estimated GFR 52 POC Glucose Random Glucose 111 Lactic Acid Calcium 8.9 Total Bilirubin 0.5 Direct Bilirubin 0.3 AST 58 H ALT 61 H Alkaline Phosphatase 91 Troponin I High Sens 17.1 H C-Reactive Protein 4.13 H Total Protein 6.7 Albumin 3.7 Lipase 17 Urine Color Dark Yellow Urine Appearance Cloudy Urine pH 5.5 Ur Specific [place] 1.025 Urine Protein Trace Urine Glucose (UA) Negative Urine Ketones Trace Urine Blood Negative Urine Nitrite Negative Ur Leukocyte Esterase Small (1+) H Urine RBC 0-2 Urine WBC 6-10 H Ur Squamous Epith Cells 6-10 Urine Bacteria 1+ Hyaline Casts 3-5 COVID-19 (WAYLON) Negative COVID-19 Clin Com See Note Influenza Type A (LONA) Negative Influenza Type B (LONA) Negative Influenza A & B Note See Note 01/16/24 01/16/24 01/16/24 04:53 07:39 10:23 MCV MCH MCHC RDW Plt Count MPV Immature Gran % (Auto) Neut % (Auto) Lymph % (Auto) Ware % (Auto) Eos % (Auto) Baso % (Auto) Lymph # (Auto) Ware # (Auto) Eos # (Auto) Baso # (Auto) Abs Immat Gran (auto) Absolute Neuts (auto) Absolute Nucleated RBC Nucleated RBC % (auto) Anion Gap Estim Creat Clear Calc Estimated GFR POC Glucose 109 Random Glucose Lactic Acid 0.7 Calcium Total Bilirubin Direct Bilirubin AST ALT Alkaline Phosphatase Troponin I High Sens 21.9 H C-Reactive Protein Total Protein Albumin Lipase Urine Color Urine Appearance Urine pH Ur Specific [place] Urine Protein Urine Glucose (UA) Urine Ketones Urine Blood Urine Nitrite Ur Leukocyte Esterase Urine RBC Urine WBC Ur Squamous Epith Cells Urine Bacteria Hyaline Casts COVID-19 (WAYLON) COVID-19 Clin Com Influenza Type A (LONA) Influenza Type B (LONA) Influenza A & B Note Imaging Radiologist's Impressions: Impressions Abdomen/Pelvis CT 01/16/24 06:57 IMPRESSION: 1. There is circumferential wall thickening of the entire colon, nonspecific CT finding and can be due to nondistention, also seen in patients with colitis,. There is however No pericolic fat stranding,. Evaluation is limited due to lack of contrast. Please correlate clinically. 2. There is fullness of soft tissues surrounding the anorectal junction with stranding involving the right perirectal fat, concerning for possible proctitis. Cannot entirely rule out the possibility of underlying anal rectal lesion, ATTENTION TO CORRELATION WITH FOLLOW-UP RECTAL EXAM. 3. Markedly distended gallbladder and there are gallstones. 4. Redemonstration of pancreatic cystic structure body/tail of the pancreas unchanged, continued surveillance recommended, consider follow-up MRI MRCP in 6 months. 5. Mild interstitial lung disease, peripheral bronchiectasis suggesting interstitial pulmonary fibrosis at lung bases. (Referring physician staff is being called, by physician staff assistance, to be alerted of the above critical findings and recommendations.) 01/16/2024 7:54 AM Assessment and Plan (1) Colitis: Status: Acute Plan Pt is an 88-year-old female with a PMH significant for?HFpEF, aortic valve replacement s/p TAVR, mild dementia, hx of breast cancer, CAD, osteoporosis, asthma, lifelong anemia, and macular degeneration who presents to the ED from assisted living with?3 days of abdominal pain and cramping. Pt will be admitted to the hospital for for treatment further evaluation of lower abdominal pain in the setting of likely pancolitis. Pancolitis Patient with lower abdominal pain, nausea, diarrhea x3 days CT showing likely pancolitis, as well as distended gallbladder and possible proctitis Patient does not meet sepsis criteria: No fever, tachycardia, tachypnea, or leukocytosis; lactic acid WNL Patient received IVF in the ED Will empirically cover with levofloxacin and metronidazole, started 01/16/2024 Will get RUQ ultrasound to evaluate gallbladder Check stool for occult blood Clear liquid diet for now, advance as tolerated General surgery consult for distended gallbladder with cholelithiasis GI consult for colitis and possible scoping CAD Continue aspirin, statin HTN, continue metoprolol, nifedipine Asthma Not in acute exacerbation Continue home inhalers Chronic anemia H&H at baseline Continue iron supplementation Follow CBC Full Code Attending:?Dr. Sofia DVT Prophylaxis: Pneumatic boots due to anemia and history of GI bleeds requiring transfusion Pt will require a hospitalization of at least two nights for treatment of Likely pancolitis. Given patient's significant comorbidities and PMH including acute blood loss anemia requiring transfusion six-month prior. Patient require hospitalization for close monitoring of labs, administration of empiric IV antibiotics, and specialist consult with GI and General surgery. Quality Stroke Does the patient have a stroke diagnosis?: No VTE Prior VTE?: No VTE Risk Level:: Medical - moderate - high VTE Device Contraindication: N/A - Device Ordered VTE Drug Contraindication: Treatment Not Indicated
[2024-01-16] MEDS: levoFLOXacin/D5W 750 MG/150 ML PIGGYBACK 100 MG IV (13:59)
[2024-01-16] MEDS: Aspirin Enteric Coated 81 MG TABLET.DR PO (13:59)
[2024-01-16] MEDS: Metoprolol Tartrate 25 MG TABLET PO ×2 (14:00→22:17)
--- NOTE | 2024-01-16 14:00 | PC.NURSE ---
medication administered per provider order. delay d/t emergent situation.
--- NOTE | 2024-01-16 14:26 | PC.NURSE ---
ultrasound being completed at this time.
[2024-01-16] MEDS: metroNIDAZOLE/NS 500 MG/100 ML PIGGYBACK 100 MG IV ×2 (14:51→22:18)
[2024-01-16 20:28] LABS: OBS Int Ctl Valid YES; OBS1 POSITIVE (NEGATIVE)
[2024-01-16 22:02] LABS: CDiff Gene PCR NEGATIVE (Negative)
[2024-01-16] MEDS: Amitriptyline HCl 10 MG TABLET PO (22:17)
[2024-01-16] MEDS: Atorvastatin Calcium 80 MG TABLET PO (22:17)
[2024-01-16] MEDS: 0.9 % Sodium Chloride Flush 3 ML SYRINGE IVFLUSH (22:30)
[2024-01-17] VITALS (8 sets, daily range): BP systolic 137–158; BP diastolic 59–70; PULSE 61–87; RESP 13–18; TEMP 36–36.6; O2SAT 94–98
[2024-01-17] MEDS: Omeprazole 20 MG CAPSULE.DR PO (05:38)
[2024-01-17] MEDS: metroNIDAZOLE/NS 500 MG/100 ML PIGGYBACK 100 MG IV ×3 (05:38→21:06)
[2024-01-17 06:16] LABS: Hematocrit 26.3 % (37.0-47.0); Hemoglobin 9.1 g/dl (12.0-16.0); Mean Corpuscular HGB Conc 34.6 g/dl (31.0-35.0); Mean Corpuscular Hemoglobin 33.1 pg (27.0-33.0); Mean Corpuscular Volume 95.6 fL (80.0-98.0); Mean Platelet Volume 10.1 fL (9.4-12.3); Platelet Count 195 X10*3/uL (160-400); Red Blood Count 2.75 X10*6/uL (4.20-5.50); White Blood Count 7.6 X10*3/uL (4.8-10.8)
[2024-01-17 06:19] LABS: Anion Gap 13 (12-20); Blood Urea Nitrogen 12 mg/dL (9-16); Calcium 8.4 mg/dL (8.4-10.2); Carbon Dioxide 18 mmol/L (22-29); Chloride 109 mmol/L (96-108); Creatinine Clr Calc Pharmacy 51.8; Estimated Glomerular Filt Rate > 60; Glucose Random 100 mg/dL (60-115); Potassium 3.7 mmol/L (3.3-5.1); Sodium 136 mmol/L (135-145)
--- NOTE | 2024-01-17 06:34 | PM.GICN ---
History of Present Illness Data of Consult Service Date: 01/17/24 Requesting physician: Kelsi Quezada Primary Care Provider: Michael Shepard MD HPI Reason for consult: abn imaging-colitis 88-year-old female with a hx of?HFpEF, aortic valve replacement s/p TAVR, mild dementia, hx of breast cancer, CAD, osteoporosis, asthma, chronic anemia, and macular degeneration who I am seeing for assessment for abn imaging and abdominal pain. patient initially presented with 3d of 8/10 lower abdominal crampy pain with bowel urgency without radiaiton, or worsening factors but relieved by passing stool. Bowel motions more loose with nausea but no vomiting, she also has noted poor appetite. Denies fever, chills. No chest pain/pressure, palpitations. Also denies UTI symptoms. No melena or rectal bleeding. Denies recent ABX but lives in [facility], no recent ingestion of contaminated or bad food Today she feels better and had no further diarrhea, she feels the ABX may be helping. Imaging: GB distention--stones, pancreas csyt, spinal degeneration, calcified uterus with fibroid, mild colonic stranding , fullness anal rectal area LABS: sodium 130, AST 58, ALT 61, initial troponin 17.1 with repeat 21.9, C-reactive protein 4.13. Stable normocytic anemia of 9.4/27.1. UA negative. Tested negative for COVID, RSV, flu. C diff neg, GI stool panel is pending Review of Systems Review of Systems: Constitutional : No Weight loss, No Fever, No Chills ENT/Mouth : No sore throat, No Rhinorrhea Eyes: No Swelling, No Redness Cardiovascular : No Chest Pain, No SOB, No Edema Respiratory : No Cough, No Sputum, No Wheezing Gastrointestinal : see HPI Genitourinary : NO Dysuria, No Urinary Frequency, No Hematuria, No Urgency Musculoskeletal : + joint pain, No Myalgias, No Joint Swelling Skin : No Skin Lesions, No rash Neuro : No Weakness, No Numbness, No Dizziness, No Headache Psych : No Anxiety/Panic, No Depression Heme/Lymph: No Bruising, No Lymphadenopathy Endocrine : No Polyuria, No Polydipsia All other systems reviewed and are negative. [facility] Past Medical History Medical History PONV (postoperative nausea and vomiting) COPD (chronic obstructive pulmonary disease) CHF (congestive heart failure) Macular degeneration Dementia HTN (hypertension) Breast cancer Atherosclerotic cardiovascular disease Coronary artery disease Anemia Aortic stenosis, severe Primary osteoarthritis involving multiple joints Osteoporosis Benign essential HTN Asthma Allergic rhinitis Family History Family History Father Hypertension Mother Thyroid cancer Sister Breast cancer Surgical History Surgical History S/P TAVR (transcatheter aortic valve replacement) S/P cardiac catheterization History of hand surgery History of heart artery stent History of laminectomy History of kyphoplasty History of cataract surgery History of D&C Social History Social History Household Members: None Household Members Other:: assisted living [facility] Housing: Assisted Living Facility Housing Other:: [facility] Are you a primary child care nurse to a significant other at home: No Do you presently have visiting nurse or other home services: No Alcohol intake: never Patient Tobacco Use Status: Former Tobacco user Quit Date: early Tobacco use type: Cigarette Years Smoked: 5 Smoked in Last 30 Days: No e-Cigarette/Vaping Use: Never Used Second Hand Smoke Exposure: No Use of substances other than those prescribed or required for medical reasons: No Currently Displaying Signs/Symptoms of Drug Intoxication Withdrawal: No Have you been hit, kicked, punched, or otherwise hurt by someone within the past year? If so, by whom?: No Do you feel safe in your current relationship?: No Current Relationship Is there a partner from a previous relationship who is making you feel unsafe now?: No Are you made to feel afraid or neglected: No Advance Directives: Yes Advance Directives on File: Yes Advance Directives Date on File: 02/06/21 Do you have a plan to hurt others: No Plan Recently lost weight without trying: No How much weight loss: Not applicable Eating poorly because of decreased appetite: No Nutrition screen score: 0 Nutrition Risks: No Nutritional Risk Patient : No : No Poor oral hygiene: No service: No Current occupational status: retired Cognitive needs: Yes (walker/cane) Hearing needs: Yes (hearing aide) Vision needs: Yes (glasses) Meds Allergies Allergy/AdvReac Type Severity Reaction Status Date / Time meperidine [From Demerol] Allergy Severe Nausea and Verified 01/16/24 02:09 Vomiting amoxicillin [AMOXICILLIN] Allergy Intermediate Rash Verified 01/16/24 02:09 cephalexin Allergy Intermediate Itching Verified 01/16/24 02:09 erythromycin base Allergy Intermediate Itching Verified 01/16/24 02:09 meloxicam Allergy Intermediate Abdominal Verified 01/16/24 02:09 Pain nitrofurantoin Allergy Intermediate Rash Verified 01/16/24 02:09 [From Macrobid] Penicillins Allergy Intermediate Rash Verified 01/16/24 02:09 Sulfa (Sulfonamide Allergy Intermediate Rash Verified 01/16/24 02:09 Antibiotics) [SULFA(SULFONAMIDE ANTIBIOTICS)] tramadol Allergy Intermediate Nausea and Verified 01/16/24 02:09 Vomiting codeine [CODEINE] AdvReac Intermediate Nausea Verified 01/16/24 02:09 Active Medications: Current Medications Acetaminophen (Acetaminophen 325 Mg Tablet) 650 mg PO Q6H PRN PRN Reason: Pain, Mild (Pain Scale 1-3) Albuterol Sulfate (Albuterol Sulfate 90 Mcg 8 Gm Inhaler) 2 puff INHALE RQ6H PRN PRN Reason: Bronchodilation Amitriptyline HCl (Amitriptyline Hcl 10 Mg Tablet) 10 mg PO BEDTIME [facility] Last Admin: 01/16/24 22:17 Dose: 10 mg Ascorbic Acid (Ascorbic Acid 500 Mg Tablet) 500 mg PO DAILY [facility] Aspirin (Aspirin Enteric Coated 81 Mg Tablet.) 81 mg PO DAILY [facility] Last Admin: 01/16/24 13:59 Dose: 81 mg Atorvastatin Calcium (Atorvastatin Calcium 80 Mg Tablet) 80 mg PO BEDTIME [facility] Last Admin: 01/16/24 22:17 Dose: 80 mg Benzonatate (Benzonatate 100 Mg Capsule) 100 mg PO TID PRN PRN Reason: Cough Cyanocobalamin (Cyanocobalamin (Vitamin B-12) 1,000 Mcg Tablet) 1,000 mcg PO DAILY [facility] Diphenhydramine HCl (Diphenhydramine Hcl 25 Mg Capsule) 25 mg PO DAILY PRN PRN Reason: Itching Ferrous Sulfate (Ferrous Sulfate 324 Mg Tablet.) 324 mg PO DAILY [facility] Fluticasone Propionate (Fluticasone Propionate 250 Mcg Blst.W.Dev) 2 puff INHALE RBID [facility] Last Admin: 01/16/24 20:11 Dose: Not Given Levofloxacin (Levaquin) 750 mg in 150 mls @ 100 mls/hr IV Q48H [facility] Last Infusion: 01/16/24 15:43 Dose: Infused Metronidazole (Flagyl) 500 mg in 100 mls @ 100 mls/hr IV Q8H [facility] Last Admin: 01/17/24 05:38 Dose: 100 mls/hr Loratadine (Loratadine 10 Mg Tablet) 10 mg PO DAILY [facility] Melatonin (Melatonin 3 Mg Tablet) 6 mg PO BEDTIME PRN PRN Reason: Insomnia Metoprolol Tartrate (Metoprolol Tartrate 25 Mg Tablet) 25 mg PO BID [facility]; Protocol Last Admin: 01/16/24 22:17 Dose: 25 mg Nifedipine (Nifedipine Er 30 Mg Tab.Er.24) 30 mg PO DAILY [facility] Omeprazole (Omeprazole 20 Mg Capsule.Dr) 20 mg PO DAILY@0630 [facility] Last Admin: 01/17/24 05:38 Dose: 20 mg Ondansetron HCl (Ondansetron Hcl 4 Mg/2 Ml Vial) 4 mg IVPUSH Q8H PRN PRN Reason: Nausea and Vomiting Oxycodone HCl (Oxycodone Hcl Immed Release 5 Mg Tablet) 5 mg PO DAILY PRN PRN Reason: Pain (Scale Score 4-6) Sodium Chloride (0.9 % Sodium Chloride Flush 3 Ml Syringe) 3 ml IVFLUSH QSHIFT [facility] Last Admin: 01/16/24 22:30 Dose: 3 ml Vitamin D (Cholecalciferol (Vitamin D3) 25 Mcg Tablet) 25 mcg PO DAILY [facility] Home Medications ?Medication ?Instructions ?Recorded ?Confirmed ?Last Taken ?Type ferrous sulfate 325 mg (65 mg 325 mg PO DAILY 12/31/20 01/16/24 03/11/23 History iron) tablet fexofenadine 180 mg tablet 180 mg PO BEDTIME 12/31/20 01/16/24 Unknown History vitamin E succinate 268 mg (400 400 unit PO DAILY 12/31/20 01/16/24 09/09/23 History unit) tablet cyanocobalamin (vitamin B-12) 1,000 mcg PO DAILY 02/06/21 01/16/24 09/09/23 History 1,000 mcg tablet pyridoxine (vitamin B6) 100 mg 100 mg PO DAILY 02/06/21 01/16/24 09/09/23 History tablet cholecalciferol (vitamin D3) 25 25 mcg PO DAILY 11/05/21 01/16/24 03/11/23 History mcg (1,000 unit) capsule acetaminophen 500 mg tablet 1,000 mg PO TID Pain 05/18/23 01/16/24 09/09/23 History (Tylenol Extra Strength) albuterol sulfate 90 mcg/actuation 2 puff inhalation Q6H PRN 07/08/23 01/16/24 Unknown History aerosol inhaler (ProAir HFA) Bronchodilation alendronate 70 mg tablet 70 mg PO MO@0900 08/08/23 01/16/24 09/09/23 History ascorbic acid (vitamin C) 500 mg 500 mg PO DAILY 08/08/23 01/16/24 09/09/23 History tablet (Vitamin C) diphenhydramine HCl 25 mg capsule 25 mg PO DAILY PRN Itching 08/08/23 01/16/24 09/09/23 History (Benadryl) glucosam 750 mg-chondroi 100 1 tab PO BID 08/08/23 01/16/24 09/09/23 History mg-hyalur 1.65 mg-CF borate 108 mg tablet ([facility]) lidocaine 4 % topical patch 1 patch topical DAILY 08/08/23 01/16/24 09/09/23 History vit C 250 mg-vit E 90 mg-zinc 40 1 tab PO BID 08/08/23 01/16/24 09/09/23 History mg-copper 1 [id number] capsule (PreserVision AREDS-2) calcium carbonate 600 mg-vitamin 1 tab PO BEDTIME 01/16/24 01/16/24 Unknown History D3 5 mcg (200 unit) tablet ceramides 1,3,6-II (CeraVe topical 1 appl topical 5XD PRN SEBORRHEIC 01/16/24 01/16/24 Unknown History cream) KERATOSES doxycycline hyclate 100 mg capsule 100 mg PO DAILY PRN Dental 01/16/24 01/16/24 Unknown History Prophylaxis omeprazole 20 mg capsule,delayed 20 mg PO DAILY@0630 01/16/24 01/16/24 Unknown History release oxycodone 5 mg tablet 5 mg PO DAILY PRN Pain (Scale 01/16/24 01/16/24 Unknown History Score 4-6) Physical Exam Vital Signs: Vital Signs: Last Vital Signs Temp 97.7 F 01/17/24 03:18 Pulse 72 01/17/24 03:18 Resp 18 01/17/24 03:18 BP 158/70 H 01/17/24 03:18 Pulse Ox 94 01/17/24 03:18 O2 Del Method Room Air 01/17/24 03:18 BMI result Body Mass Index 30.9 EXAM: GENERAL: The patient is well developed and nontoxic. VITAL SIGNS:see workflow HEENT: Nonicteric sclerae, PERRLA, EOMI. Oropharynx clear. Moist mucous membranes. Conjunctivae appear well perfused. No thyroid mass. CHEST: Chest wall is nontender. HEART: Regular rate and rhythm without murmurs. LUNGS: Clear to auscultation bilaterally. ABDOMEN: Soft, positive bowel sounds, nontender, no organomegaly.no flank tenderness Rectal exam: soft stool, no blood, and no masses felt SKIN: No rash, no excessive bruising, petechiae, or purpura. NEUROLOGIC: Cranial nerves II-XII intact without motor/sensory deficit. Psych: normal affect Results Labs 01/17/24 05:58 01/17/24 05:58 Labs: Short CBC 01/17/24 Range/Units 05:58 WBC 7.6 (4.8-10.8) X10*3/uL Hgb 9.1 L (12.0-16.0) g/dl Hct 26.3 L (37.0-47.0) % Plt Count 195 (160-400) X10*3/uL BMP 01/17/24 05:58 Sodium 136 Potassium 3.7 Chloride 109 H Carbon Dioxide 18 L BUN 12 Creatinine 0.[address] scan - abdomen: Attestation: I personally reviewed and interpreted this imaging study as follows: (significant atherosclerosis, spinal degeneration, atrophic kidneys, gallstones, fecal loading, calcified fibroid-uterus) Assessment and Plan (1) Colitis: Status: Acute Plan 1/ Colitis, posisbly infectious vs ischemic-given atherosclerosis seen on mesenteric vessels on CT, seems to have improved very quickly with ABx therapy PLAN: 1/ Avoid constipation in future, with good bowel regimen, e.g miralax bid and colace 2/ advised colonoscopy but she refuses at this time, no anal rectal mass felt on exam as suggested by CT 3/ avoid aggressive BP control 4/ anemia is chronic and seems stable at this time, would chec iron studies, b12, folate --if DEANNA then can add EGD to colonoscopy in future if she agrees Procedures Date of Service Date of Service: 01/17/24
[2024-01-17] MEDS: Fluticasone Propionate 250 MCG BLST.W.DEV 2 PUFF INHALE ×2 (08:02→20:25)
--- NOTE | 2024-01-17 08:15 | P.PNIM_ITS ---
Subjective Subjective Date of Service: 01/17/24 Interval History: f/u on pancolitis she feels better, pain is mild, no n/v, no diarrhea this morning. Physical Exam 2 Vital Signs: Vital Signs: Last Vital Signs Temp 98 F 01/17/24 06:54 Pulse 62 01/17/24 08:04 Resp 16 01/17/24 08:04 BP 137/65 01/17/24 06:54 Pulse Ox 98 01/17/24 06:54 O2 Del Method Room Air 01/17/24 06:54 BMI result Body Mass Index 30.9 General: AO X 3, no acute distress Resp: CTA bilateral CVS: S1,S2,RRR GI: +BS, mild tenderness to palpation, no distention Skin: No rash Neuro: motor grossly intact Psych: appropriate affect Objective Data Active Medications Acetaminophen (Acetaminophen 325 Mg Tablet) 650 mg PO Q6H PRN PRN Reason: Pain, Mild (Pain Scale 1-3) Albuterol Sulfate (Albuterol Sulfate 90 Mcg 8 Gm Inhaler) 2 puff INHALE RQ6H PRN PRN Reason: Bronchodilation Amitriptyline HCl (Amitriptyline Hcl 10 Mg Tablet) 10 mg PO BEDTIME [facility] Last Admin: 01/16/24 22:17 Dose: 10 mg Documented By: FAYE Ascorbic Acid (Ascorbic Acid 500 Mg Tablet) 500 mg PO DAILY [facility] Aspirin (Aspirin Enteric Coated 81 Mg Tablet.) 81 mg PO DAILY [facility] Last Admin: 01/16/24 13:59 Dose: 81 mg Documented By: BOBO Atorvastatin Calcium (Atorvastatin Calcium 80 Mg Tablet) 80 mg PO BEDTIME [facility] Last Admin: 01/16/24 22:17 Dose: 80 mg Documented By: FAYE Benzonatate (Benzonatate 100 Mg Capsule) 100 mg PO TID PRN PRN Reason: Cough Cyanocobalamin (Cyanocobalamin (Vitamin B-12) 1,000 Mcg Tablet) 1,000 mcg PO DAILY [facility] Diphenhydramine HCl (Diphenhydramine Hcl 25 Mg Capsule) 25 mg PO DAILY PRN PRN Reason: Itching Ferrous Sulfate (Ferrous Sulfate 324 Mg Tablet.) 324 mg PO DAILY [facility] Fluticasone Propionate (Fluticasone Propionate 250 Mcg Blst.W.Dev) 2 puff INHALE RBID [facility] Last Admin: 01/17/24 08:02 Dose: 2 puff Documented By: JADE Levofloxacin (Levaquin) 750 mg in 150 mls @ 100 mls/hr IV Q48H [facility] Last Infusion: 01/16/24 15:43 Dose: Infused Documented By: BOBO Metronidazole (Flagyl) 500 mg in 100 mls @ 100 mls/hr IV Q8H [facility] Last Infusion: 01/17/24 07:45 Dose: Infused Documented By: WANG Loratadine (Loratadine 10 Mg Tablet) 10 mg PO DAILY [facility] Melatonin (Melatonin 3 Mg Tablet) 6 mg PO BEDTIME PRN PRN Reason: Insomnia Metoprolol Tartrate (Metoprolol Tartrate 25 Mg Tablet) 25 mg PO BID [facility]; Protocol Last Admin: 01/16/24 22:17 Dose: 25 mg Documented By: FAYE Comments: new admit Nifedipine (Nifedipine Er 30 Mg Tab.Er.24) 30 mg PO DAILY [facility] Omeprazole (Omeprazole 20 Mg Capsule.Dr) 20 mg PO DAILY@0630 [facility] Last Admin: 01/17/24 05:38 Dose: 20 mg Documented By: SOPHIA Ondansetron HCl (Ondansetron Hcl 4 Mg/2 Ml Vial) 4 mg IVPUSH Q8H PRN PRN Reason: Nausea and Vomiting Oxycodone HCl (Oxycodone Hcl Immed Release 5 Mg Tablet) 5 mg PO DAILY PRN PRN Reason: Pain (Scale Score 4-6) Sodium Chloride (0.9 % Sodium Chloride Flush 3 Ml Syringe) 3 ml IVFLUSH QSHIFT [facility] Last Admin: 01/16/24 22:30 Dose: 3 ml Documented By: FAYE Vitamin D (Cholecalciferol (Vitamin D3) 25 Mcg Tablet) 25 mcg PO DAILY [facility] Labs 01/17/24 05:58 01/17/24 05:58 Labs: Laboratory Results - last 24 hr 01/16/24 01/16/24 01/17/24 10:23 19:20 05:58 MCV 95.6 MCH 33.1 H MCHC 34.6 RDW 14.0 Plt Count 195 MPV 10.1 Absolute Nucleated RBC 0.000 Nucleated RBC % (auto) 0.0 Anion Gap 13 Estim Creat Clear Calc 51.8 Estimated GFR > 60 Random Glucose 100 Lactic Acid 0.7 Calcium 8.4 Stool Occult Blood POSITIVE C. difficile Tox B Gene NEGATIVE Assessment and Plan (1) Colitis: Status: Acute (2) Acute on chronic anemia: Status: Acute (3) Heme positive stool: Status: Acute Plan 88-year-old female with a PMH significant for?HFpEF, aortic valve replacement s/p TAVR, mild dementia, hx of breast cancer, CAD, osteoporosis, asthma, lifelong anemia, and macular degeneration who presents to the ED from assisted living with?3 days of abdominal pain and cramping w/u has revealed pancolitis Pancolitis--infectious vs imflamatory, improving -continue IV levaquin + Flagyl started 01/15 -[facility] studies -GI and surgery consult -liquid diet and advance as tolerated Distended Gallbladder--RUQ US CAD Continue aspirin, statin HTN, continue metoprolol, nifedipine Asthma Not in acute exacerbation Continue home inhalers Chronic anemia H&H at baseline Continue iron supplementation Follow CBC Full Code DVT Prophylaxis: Pneumatic boots due to anemia and history of GI bleeds requiring transfusion need for inpatient: IV Abx for pancolitis, not able take much by mouth, need for expert eval Quality Stroke Does the patient have a stroke diagnosis?: No VTE Prior VTE?: No VTE Risk Level:: Medical - moderate - high VTE Device Contraindication: N/A - Device Ordered VTE Drug Contraindication: Treatment Not Indicated
[2024-01-17] MEDS: Ascorbic Acid 500 MG TABLET PO (09:29)
[2024-01-17] MEDS: NIFEdipine ER 30 MG TAB.ER.24 PO (09:29)
[2024-01-17] MEDS: Cholecalciferol (Vitamin D3) 25 MCG TABLET PO (09:29)
[2024-01-17] MEDS: Metoprolol Tartrate 25 MG TABLET PO ×2 (09:29→21:04)
[2024-01-17] MEDS: Cyanocobalamin (Vitamin B-12) 1,000 MCG TABLET 1000 MCG PO (09:29)
[2024-01-17] MEDS: Loratadine 10 MG TABLET PO (09:29)
[2024-01-17] MEDS: Aspirin Enteric Coated 81 MG TABLET.DR PO (09:29)
[2024-01-17] MEDS: Ferrous Sulfate 324 MG TABLET.DR PO (09:30)
[2024-01-17] MEDS: 0.9 % Sodium Chloride Flush 3 ML SYRINGE IVFLUSH ×3 (09:30→23:48)
[2024-01-17] MEDS: Acetaminophen 325 MG TABLET 650 MG PO (12:35)
[2024-01-17] MEDS: oxyCODONE HCl Immed Release 5 MG TABLET PO (14:02)
--- NOTE | 2024-01-17 14:02 | P.CONGS_ITS ---
History of Present Illness Consult details Consult date: 01/17/24 Narrative: Patient is an 88-year-old female with a plethora of medical problems and comorbidities who presents with crampy lower abdominal pain. Patient has been worked up extensively and on GI consultation as well with findings suggestive of a colitis of either ischemic or inflammatory etiology. Patient has incidental finding of cholelithiasis. She herself says she has no right upper quadrant symptoms or complaints. Patient has been evaluated by surgery in the past for her asymptomatic cholelithiasis . Chart was reviewed and patient evaluated White blood cell within normal limits. Mild anemia PMFSH Past Medical History Medical History PONV (postoperative nausea and vomiting) COPD (chronic obstructive pulmonary disease) CHF (congestive heart failure) Macular degeneration Dementia HTN (hypertension) Breast cancer Atherosclerotic cardiovascular disease Coronary artery disease Anemia Aortic stenosis, severe Primary osteoarthritis involving multiple joints Osteoporosis Benign essential HTN Asthma Allergic rhinitis Family History Family History Father Hypertension Mother Thyroid cancer Sister Breast cancer Surgical History Surgical History S/P TAVR (transcatheter aortic valve replacement) S/P cardiac catheterization History of hand surgery History of heart artery stent History of laminectomy History of kyphoplasty History of cataract surgery History of D&C Social History Social History Household Members: None Household Members Other:: assisted living [facility] Housing: Assisted Living Facility Housing Other:: [facility] Are you a primary ocular care technician to a significant other at home: No Do you presently have visiting nurse or other home services: No Alcohol intake: never Patient Tobacco Use Status: Former Tobacco user Quit Date: early Tobacco use type: Cigarette Years Smoked: 5 Smoked in Last 30 Days: No e-Cigarette/Vaping Use: Never Used Second Hand Smoke Exposure: No Use of substances other than those prescribed or required for medical reasons: No Currently Displaying Signs/Symptoms of Drug Intoxication Withdrawal: No Have you been hit, kicked, punched, or otherwise hurt by someone within the past year? If so, by whom?: No Do you feel safe in your current relationship?: No Current Relationship Is there a partner from a previous relationship who is making you feel unsafe now?: No Are you made to feel afraid or neglected: No Advance Directives: Yes Advance Directives on File: Yes Advance Directives Date on File: 02/06/21 Do you have a plan to hurt others: No Plan Recently lost weight without trying: No How much weight loss: Not applicable Eating poorly because of decreased appetite: No Nutrition screen score: 0 Nutrition Risks: No Nutritional Risk Patient : No : No Poor oral hygiene: No service: No Current occupational status: retired Cognitive needs: Yes (walker/cane) Hearing needs: Yes (hearing aide) Vision needs: Yes (glasses) Meds Allergies Allergy/AdvReac Type Severity Reaction Status Date / Time meperidine [From Demerol] Allergy Severe Nausea and Verified 01/16/24 02:09 Vomiting amoxicillin [AMOXICILLIN] Allergy Intermediate Rash Verified 01/16/24 02:09 cephalexin Allergy Intermediate Itching Verified 01/16/24 02:09 erythromycin base Allergy Intermediate Itching Verified 01/16/24 02:09 meloxicam Allergy Intermediate Abdominal Verified 01/16/24 02:09 Pain nitrofurantoin Allergy Intermediate Rash Verified 01/16/24 02:09 [From Macrobid] Penicillins Allergy Intermediate Rash Verified 01/16/24 02:09 Sulfa (Sulfonamide Allergy Intermediate Rash Verified 01/16/24 02:09 Antibiotics) [SULFA(SULFONAMIDE ANTIBIOTICS)] tramadol Allergy Intermediate Nausea and Verified 01/16/24 02:09 Vomiting codeine [CODEINE] AdvReac Intermediate Nausea Verified 01/16/24 02:09 Active Medications: Current Medications Acetaminophen (Acetaminophen 325 Mg Tablet) 650 mg PO Q6H PRN PRN Reason: Pain, Mild (Pain Scale 1-3) Last Admin: 01/17/24 12:35 Dose: 650 mg Albuterol Sulfate (Albuterol Sulfate 90 Mcg 8 Gm Inhaler) 2 puff INHALE RQ6H PRN PRN Reason: Bronchodilation Amitriptyline HCl (Amitriptyline Hcl 10 Mg Tablet) 10 mg PO BEDTIME [facility] Last Admin: 01/16/24 22:17 Dose: 10 mg Ascorbic Acid (Ascorbic Acid 500 Mg Tablet) 500 mg PO DAILY [facility] Last Admin: 01/17/24 09:29 Dose: 500 mg Aspirin (Aspirin Enteric Coated 81 Mg Tablet.Dr) 81 mg PO DAILY [facility] Last Admin: 01/17/24 09:29 Dose: 81 mg Atorvastatin Calcium (Atorvastatin Calcium 80 Mg Tablet) 80 mg PO BEDTIME [facility] Last Admin: 01/16/24 22:17 Dose: 80 mg Benzonatate (Benzonatate 100 Mg Capsule) 100 mg PO TID PRN PRN Reason: Cough Cyanocobalamin (Cyanocobalamin (Vitamin B-12) 1,000 Mcg Tablet) 1,000 mcg PO DAILY [facility] Last Admin: 01/17/24 09:29 Dose: 1,000 mcg Diphenhydramine HCl (Diphenhydramine Hcl 25 Mg Capsule) 25 mg PO DAILY PRN PRN Reason: Itching Ferrous Sulfate (Ferrous Sulfate 324 Mg Tablet.) 324 mg PO DAILY [facility] Last Admin: 01/17/24 09:30 Dose: 324 mg Fluticasone Propionate (Fluticasone Propionate 250 Mcg Blst.W.Dev) 2 puff INHALE RBID [facility] Last Admin: 01/17/24 08:02 Dose: 2 puff Levofloxacin (Levaquin) 750 mg in 150 mls @ 100 mls/hr IV Q48H [facility] Last Infusion: 01/16/24 15:43 Dose: Infused Metronidazole (Flagyl) 500 mg in 100 mls @ 100 mls/hr IV Q8H [facility] Last Infusion: 01/17/24 07:45 Dose: Infused Loratadine (Loratadine 10 Mg Tablet) 10 mg PO DAILY [facility] Last Admin: 01/17/24 09:29 Dose: 10 mg Melatonin (Melatonin 3 Mg Tablet) 6 mg PO BEDTIME PRN PRN Reason: Insomnia Metoprolol Tartrate (Metoprolol Tartrate 25 Mg Tablet) 25 mg PO BID [facility]; Protocol Last Admin: 01/17/24 09:29 Dose: 25 mg Nifedipine (Nifedipine Er 30 Mg Tab.Er.24) 30 mg PO DAILY [facility] Last Admin: 01/17/24 09:29 Dose: 30 mg Omeprazole (Omeprazole 20 Mg Capsule.) 20 mg PO DAILY@0630 [facility] Last Admin: 01/17/24 05:38 Dose: 20 mg Ondansetron HCl (Ondansetron Hcl 4 Mg/2 Ml Vial) 4 mg IVPUSH Q8H PRN PRN Reason: Nausea and Vomiting Oxycodone HCl (Oxycodone Hcl Immed Release 5 Mg Tablet) 5 mg PO DAILY PRN PRN Reason: Pain (Scale Score 4-6) Sodium Chloride (0.9 % Sodium Chloride Flush 3 Ml Syringe) 3 ml IVFLUSH QSHIFT [facility] Last Admin: 01/17/24 09:30 Dose: 3 ml Vitamin D (Cholecalciferol (Vitamin D3) 25 Mcg Tablet) 25 mcg PO DAILY [facility] Last Admin: 01/17/24 09:29 Dose: 25 mcg Home Medications ?Medication ?Instructions ?Recorded ?Confirmed ?Last Taken ?Type ferrous sulfate 325 mg (65 mg 325 mg PO DAILY 12/31/20 01/16/24 03/11/23 History iron) tablet fexofenadine 180 mg tablet 180 mg PO BEDTIME 12/31/20 01/16/24 Unknown History vitamin E succinate 268 mg (400 400 unit PO DAILY 12/31/20 01/16/24 09/09/23 History unit) tablet cyanocobalamin (vitamin B-12) 1,000 mcg PO DAILY 02/06/21 01/16/24 09/09/23 History 1,000 mcg tablet pyridoxine (vitamin B6) 100 mg 100 mg PO DAILY 02/06/21 01/16/24 09/09/23 History tablet cholecalciferol (vitamin D3) 25 25 mcg PO DAILY 11/05/21 01/16/24 03/11/23 History mcg (1,000 unit) capsule acetaminophen 500 mg tablet 1,000 mg PO TID Pain 05/18/23 01/16/24 09/09/23 History (Tylenol Extra Strength) albuterol sulfate 90 mcg/actuation 2 puff inhalation Q6H PRN 07/08/23 01/16/24 Unknown History aerosol inhaler (ProAir HFA) Bronchodilation alendronate 70 mg tablet 70 mg PO MO@0900 08/08/23 01/16/24 09/09/23 History ascorbic acid (vitamin C) 500 mg 500 mg PO DAILY 08/08/23 01/16/24 09/09/23 History tablet (Vitamin C) diphenhydramine HCl 25 mg capsule 25 mg PO DAILY PRN Itching 08/08/23 01/16/24 09/09/23 History (Benadryl) glucosam 750 mg-chondroi 100 1 tab PO BID 08/08/23 01/16/24 09/09/23 History mg-hyalur 1.65 mg-CF borate 108 mg tablet (Move Free Meal Mantra) lidocaine 4 % topical patch 1 patch topical DAILY 08/08/23 01/16/24 09/09/23 History vit C 250 mg-vit E 90 mg-zinc 40 1 tab PO BID 08/08/23 01/16/24 09/09/23 History mg-copper 1 [id number] capsule (PreserVision AREDS-2) calcium carbonate 600 mg-vitamin 1 tab PO BEDTIME 01/16/24 01/16/24 Unknown History D3 5 mcg (200 unit) tablet ceramides 1,3,6-II (CeraVe topical 1 appl topical 5XD PRN SEBORRHEIC 01/16/24 01/16/24 Unknown History cream) KERATOSES doxycycline hyclate 100 mg capsule 100 mg PO DAILY PRN Dental 01/16/24 01/16/24 Unknown History Prophylaxis omeprazole 20 mg capsule,delayed 20 mg PO DAILY@0630 01/16/24 01/16/24 Unknown History release oxycodone 5 mg tablet 5 mg PO DAILY PRN Pain (Scale 01/16/24 01/16/24 Unknown History Score 4-6) Physical Exam 2 Vital Signs: Vital Signs: Last Vital Signs Temp 97.8 F 01/17/24 09:28 Pulse 71 01/17/24 09:28 Resp 17 01/17/24 09:28 BP 138/64 01/17/24 09:28 Pulse Ox 97 01/17/24 09:28 O2 Del Method Room Air 01/17/24 09:28 BMI result Body Mass Index 30.9 Const: Other: Elderly female mildly confused very pleasant GI: Other: Abdomen corpulent, mildly distended, no evidence of right upper quadrant or Parker's sign. Patient has lower abdominal/left lower quadrant tenderness but without guarding, rebound, or rigidity. Results Labs 01/17/24 05:58 01/17/24 05:58 Labs: Abnormal lab results 01/17/24 Range/Units 05:58 RBC 2.75 L (4.20-5.50) X10*6/uL Hgb 9.1 L (12.0-16.0) g/dl Hct 26.3 L (37.0-47.0) % MCH 33.1 H (27.0-33.0) pg Chloride 109 H (96-108) mmol/L Carbon Dioxide 18 L (22-29) mmol/L Short CBC 01/17/24 Range/Units 05:58 WBC 7.6 (4.8-10.8) X10*3/uL Hgb 9.1 L (12.0-16.0) g/dl Hct 26.3 L (37.0-47.0) % Plt Count 195 (160-400) X10*3/uL BMP 01/17/24 05:58 Sodium 136 Potassium 3.7 Chloride 109 H Carbon Dioxide 18 L BUN 12 Creatinine 0.82 Calcium 8.4 Urine 01/16/24 Range/Units 02:52 Urine Color Dark Yellow Urine Appearance Cloudy Urine pH 5.5 (5.0-9.0) Ur Specific [place] 1.025 (1.005-1.025) Urine Protein Trace (Neg-Trace) mg/dL Urine Glucose (UA) Negative (Negative) mg/dL All other labs normal. Assessment and Plan (1) Colitis: Status: Acute Plan At present, patient's symptoms are highly likely related to her colitis and not related to her cholelithiasis. No acute surgical issues at this time. Continue supportive care. Procedures Date of Service Date of Service: 01/17/24
[2024-01-17 14:43] LABS: Adenovirus F 40/41 Not Detected (Not Detect.); Astrovirus Not Detected (Not Detect.); Campylobacter Not Detected (Not Detect.); Cryptosporidium Not Detected (Not Detect.); Cyclospora cayetanensis Not Detected (Not Detect.); E. coli EAEC Not Detected (Not Detect.); E. coli EPEC Not Detected (Not Detect.); E. coli ETEC Not Detected (Not Detect.); E. coli STEC Not Detected (Not Detect.); Entamoeba histolytica Not Detected (Not Detect.); Giardia lamblia Not Detected (Not Detect.); Norovirus GI/GII Not Detected (Not Detect.); Plesiomonas shigelloides Not Detected (Not Detect.); Rotavirus A Not Detected (Not Detect.); Salmonella Not Detected (Not Detect.); Sapovirus Not Detected (Not Detect.); Shigella sp./EIEC Not Detected (Not Detect.); Vibrio Not Detected (Not Detect.); Vibrio Cholerae Not Detected (Not Detect.); Yersinia enterocolitica Not Detected (Not Detect.)
--- NOTE | 2024-01-17 15:08 | MHC.CM.PN ---
CM MET WITH PTS DAUGHTER WHO REPORTS PT LIVES AT [facility] SHE SAYS PT IS PRETTY INDEPENDENT, BUT THEY WILL PROVIDE ASSISTANCE IF NEEDED PT CURRENTLY HAS NO OUTSIDE SERVICES AND USES A WALKER TO AMBULATE HCP AND MOLST ON FILE PCP: ALBERT JIMÉNEZ PT DOES NOT HAVE MEDICARE DCP: RETURN TO [facility] DAUGHTER WILL TRANSPORT
[2024-01-17] MEDS: Amitriptyline HCl 10 MG TABLET PO (21:04)
[2024-01-17] MEDS: Atorvastatin Calcium 80 MG TABLET PO (21:04)
[2024-01-18] VITALS (10 sets, daily range): BP systolic 125–148; BP diastolic 60–67; PULSE 60–76; RESP 16–24; TEMP 36–37.1; O2SAT 95–99
[2024-01-18] MEDS: metroNIDAZOLE/NS 500 MG/100 ML PIGGYBACK 100 MG IV ×3 (05:56→21:36)
[2024-01-18] MEDS: Omeprazole 20 MG CAPSULE.DR PO (05:56)
[2024-01-18 06:29] LABS: Hematocrit 24.9 % (37.0-47.0); Hemoglobin 8.4 g/dl (12.0-16.0); Mean Corpuscular HGB Conc 33.7 g/dl (31.0-35.0); Mean Corpuscular Hemoglobin 32.3 pg (27.0-33.0); Mean Corpuscular Volume 95.8 fL (80.0-98.0); Mean Platelet Volume 10.3 fL (9.4-12.3); Platelet Count 194 X10*3/uL (160-400); Red Cell Distribution Width 13.9 % (11.0-16.0); White Blood Count 6.4 X10*3/uL (4.8-10.8)
[2024-01-18 07:59] LABS: Anion Gap 12 (12-20); Blood Urea Nitrogen 10 mg/dL (9-16); Calcium 8.3 mg/dL (8.4-10.2); Carbon Dioxide 20 mmol/L (22-29); Chloride 109 mmol/L (96-108); Creatinine Clr Calc Pharmacy 51.2; Estimated Glomerular Filt Rate > 60; Glucose Random 97 mg/dL (60-115); Potassium 3.7 mmol/L (3.3-5.1); Sodium 137 mmol/L (135-145)
[2024-01-18] MEDS: Lactated Ringers 1,000 ML 80 ML IVCONT ×2 (08:04→20:19)
[2024-01-18] MEDS: Fluticasone Propionate 250 MCG BLST.W.DEV 2 PUFF INHALE ×2 (08:05→19:58)
[2024-01-18] MEDS: NIFEdipine ER 30 MG TAB.ER.24 PO (08:05)
[2024-01-18] MEDS: Ferrous Sulfate 324 MG TABLET.DR PO (08:08)
[2024-01-18] MEDS: Cyanocobalamin (Vitamin B-12) 1,000 MCG TABLET 1000 MCG PO (08:08)
[2024-01-18] MEDS: Loratadine 10 MG TABLET PO (08:08)
[2024-01-18] MEDS: Aspirin Enteric Coated 81 MG TABLET.DR PO (08:08)
[2024-01-18] MEDS: Metoprolol Tartrate 25 MG TABLET PO ×2 (08:08→20:18)
[2024-01-18] MEDS: Cholecalciferol (Vitamin D3) 25 MCG TABLET PO (08:08)
[2024-01-18] MEDS: Ascorbic Acid 500 MG TABLET PO (08:08)
--- NOTE | 2024-01-18 09:30 | HO.PM.IMPN ---
Subjective Subjective Date of Service: 01/18/24 Interval History: f/u on pancolitis no reporting in pain and no blood in the stool, however H/H is down Physical Exam Vital Signs: Vital Signs: Last Vital Signs Temp 98.1 F 01/18/24 08:00 Pulse 70 01/18/24 08:11 Resp 18 01/18/24 08:11 BP 125/60 01/18/24 08:08 Pulse Ox 96 01/18/24 08:00 O2 Del Method Room Air 01/18/24 08:00 BMI result Body Mass Index 30.9 General: AO X 3, no acute distress Resp: CTA bilateral CVS: S1,S2,RRR GI: +BS, no tenderness, no distention Skin: No rash Neuro: motor grossly intact Psych: appropriate affect Objective Data Active Medications Acetaminophen (Acetaminophen 325 Mg Tablet) 650 mg PO Q6H PRN PRN Reason: Pain, Mild (Pain Scale 1-3) Last Admin: 01/17/24 12:35 Dose: 650 mg Documented By: WANG Albuterol Sulfate (Albuterol Sulfate 90 Mcg 8 Gm Inhaler) 2 puff INHALE RQ6H PRN PRN Reason: Bronchodilation Amitriptyline HCl (Amitriptyline Hcl 10 Mg Tablet) 10 mg PO BEDTIME [facility] Last Admin: 01/17/24 21:04 Dose: 10 mg Documented By: BOBO Ascorbic Acid (Ascorbic Acid 500 Mg Tablet) 500 mg PO DAILY [facility] Last Admin: 01/18/24 08:08 Dose: 500 mg Documented By: MIRANDA Aspirin (Aspirin Enteric Coated 81 Mg Tablet.) 81 mg PO DAILY [facility] Last Admin: 01/18/24 08:08 Dose: 81 mg Documented By: MIRANDA Atorvastatin Calcium (Atorvastatin Calcium 80 Mg Tablet) 80 mg PO BEDTIME [facility] Last Admin: 01/17/24 21:04 Dose: 80 mg Documented By: BOBO Benzonatate (Benzonatate 100 Mg Capsule) 100 mg PO TID PRN PRN Reason: Cough Cyanocobalamin (Cyanocobalamin (Vitamin B-12) 1,000 Mcg Tablet) 1,000 mcg PO DAILY [facility] Last Admin: 01/18/24 08:08 Dose: 1,000 mcg Documented By: MIRANDA Diphenhydramine HCl (Diphenhydramine Hcl 25 Mg Capsule) 25 mg PO DAILY PRN PRN Reason: Itching Ferrous Sulfate (Ferrous Sulfate 324 Mg Tablet.) 324 mg PO DAILY [facility] Last Admin: 01/18/24 08:08 Dose: 324 mg Documented By: MIRANDA Fluticasone Propionate (Fluticasone Propionate 250 Mcg Blst.W.Dev) 2 puff INHALE RBID [facility] Last Admin: 01/18/24 08:05 Dose: 2 puff Documented By: CLEO Levofloxacin (Levaquin) 750 mg in 150 mls @ 100 mls/hr IV Q48H [facility] Last Infusion: 01/16/24 15:43 Dose: Infused Documented By: BOBO Metronidazole (Flagyl) 500 mg in 100 mls @ 100 mls/hr IV Q8H [facility] Last Infusion: 01/18/24 07:24 Dose: Infused Documented By: MIRANDA Lactated Ringer's (Lr) 1,000 mls @ 80 mls/hr IVCONT .[id number] [facility] Last Admin: 01/18/24 08:04 Dose: 80 mls/hr Documented By: MIRANDA Loratadine (Loratadine 10 Mg Tablet) 10 mg PO DAILY [facility] Last Admin: 01/18/24 08:08 Dose: 10 mg Documented By: MIRANDA Melatonin (Melatonin 3 Mg Tablet) 6 mg PO BEDTIME PRN PRN Reason: Insomnia Metoprolol Tartrate (Metoprolol Tartrate 25 Mg Tablet) 25 mg PO BID [facility]; Protocol Last Admin: 01/18/24 08:08 Dose: 25 mg Documented By: MIRANDA Nifedipine (Nifedipine Er 30 Mg Tab.Er.24) 30 mg PO DAILY [facility] Last Admin: 01/18/24 08:05 Dose: 30 mg Documented By: MIRANDA Omeprazole (Omeprazole 20 Mg Capsule.) 20 mg PO DAILY@0630 [facility] Last Admin: 01/18/24 05:56 Dose: 20 mg Documented By: ASUNCION Ondansetron HCl (Ondansetron Hcl 4 Mg/2 Ml Vial) 4 mg IVPUSH Q8H PRN PRN Reason: Nausea and Vomiting Oxycodone HCl (Oxycodone Hcl Immed Release 5 Mg Tablet) 5 mg PO DAILY PRN PRN Reason: Pain (Scale Score 4-6) Last Admin: 01/17/24 14:02 Dose: 5 mg Documented By: WANG Sodium Chloride (0.9 % Sodium Chloride Flush 3 Ml Syringe) 3 ml IVFLUSH QSHIFT [facility] Last Admin: 01/18/24 07:12 Dose: Not Given Documented By: MIRANDA Non-Admin Reason: IV Running Vitamin D (Cholecalciferol (Vitamin D3) 25 Mcg Tablet) 25 mcg PO DAILY [facility] Last Admin: 01/18/24 08:08 Dose: 25 mcg Documented By: MIRANDA Labs 01/18/24 06:05 01/18/24 06:05 Labs: Laboratory Results - last 24 hr 01/16/24 01/18/24 19:20 06:05 MCV 95.8 MCH 32.3 MCHC 33.7 RDW 13.9 Plt Count 194 MPV 10.3 Absolute Nucleated RBC 0.000 Nucleated RBC % (auto) 0.0 Anion Gap 12 Estim Creat Clear Calc 51.2 Estimated GFR > 60 Random Glucose 97 Calcium 8.3 L Stl C. cayetanensis PCR Not Detected Stool Rotavirus A PCR Not Detected Stl Adenov F 40/41 PCR Not Detected Stool Astrovirus (PCR) Not Detected Stool Campylobacter PCR Not Detected Stool Cryptosporidium PCR Not Detected Stl Sh Tox Pr E STEC PCR Not Detected Stool E coli O157 PCR Not applicable Stl Enterotoxigenic E PCR Not Detected Stool EPEC (PCR) Not Detected Stool EAEC (PCR) Not Detected Stl E. histolytica PCR Not Detected Stool Giardia Lamblia PCR Not Detected Stl P. shigelloides PCR Not Detected Stool Salmonella PCR Not Detected Stool Sapovirus (PCR) Not Detected Stl Shigella/EIEC PCR Not Detected St Y.enterocolitica PCR Not Detected Stool Vibrio (PCR) Not Detected Stl Vibrio cholerae PCR Not Detected Stl Norovirus GI/GII PCR Not Detected Microbiology Microbiology Results: Microbiology 01/16/24 Unknown Urine Culture - Final Urine clean catch - Clean Catch Midstream Assessment and Plan (1) Colitis: Status: Acute (2) Acute on chronic anemia: Status: Acute (3) Heme positive stool: Status: Acute Plan 88-year-old female with a PMH significant for?HFpEF, aortic valve replacement s/p TAVR, mild dementia, hx of breast cancer, CAD, osteoporosis, asthma, lifelong anemia, and macular degeneration who presents to the ED from assisted living with?3 days of abdominal pain and cramping w/u has revealed pancolitis Pancolitis--infectious vs imflamatory, improving -continue IV levaquin + Flagyl started 01/15 -C dif negative, linda studies -seen by Gen Surg--no surgical indication -seen by GI--declined colonoscopy -liquid diet and advance as tolerated Acute on chronic anemia--d/t colitis, check iron studies Distended Gallbladder--RUQ US CAD Continue aspirin, statin HTN, continue metoprolol, nifedipine Asthma Not in acute exacerbation Continue home inhalers Chronic anemia H&H at baseline Continue iron supplementation Follow CBC Full Code DVT Prophylaxis: Pneumatic boots due to anemia and history of GI bleeds requiring transfusion need for inpatient: IV Abx for pancolitis, not able take much by mouth, need for expert eval Quality Stroke Does the patient have a stroke diagnosis?: No VTE Prior VTE?: No VTE Risk Level:: Medical - moderate - high VTE Device Contraindication: N/A - Device Ordered VTE Drug Contraindication: Treatment Not Indicated
[2024-01-18 10:05] LABS: Iron 44 mcg/dL (30-160); Percent Iron Saturation 25 % (15-50); Total Iron Binding Capacity 175 mcg/dL (228-428); Unsaturated Iron Binding 131 ug/dL
[2024-01-18 10:20] LABS: Ferritin 735 ng/mL (10-250)
[2024-01-18] MEDS: levoFLOXacin/D5W 750 MG/150 ML PIGGYBACK 100 MG IV (12:25)
--- NOTE | 2024-01-18 13:55 | MHC.CM.PN ---
PER MD ROUNDS, PT NOT MEDICALLY CLEARED PER PTS DAUGHTER, THEY WOULD PREFER SHE RETURN TO HER [facility] OPPOSED TO STR DAUGHTER WILL TRANSPORT
--- NOTE | 2024-01-18 17:21 | PM.EVENT ---
Event Note Date of Service: 01/18/24 Event Note: Luiz silva called with results to abd us, showing suspicion for acute cholecystitis evident by distended gallbladder, gallbladder wall thickening, gallstones, positive Parker sign and mildly dilated common bile duct of 9 mm. Patient at this time is covered on Levaquin and flagyl with minimal symptoms. 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 Also discussed with attending provider for today and is in agreement with above plan. Time Spent With Patient Time: Total time managing care of this patient today ____ minutes.
[2024-01-18] MEDS: Amitriptyline HCl 10 MG TABLET PO (20:18)
[2024-01-18] MEDS: 0.9 % Sodium Chloride Flush 3 ML SYRINGE IVFLUSH (20:19)
[2024-01-18] MEDS: Atorvastatin Calcium 80 MG TABLET PO (20:19)
[2024-01-18] MEDS: Acetaminophen 325 MG TABLET 650 MG PO (21:36)
[2024-01-19] VITALS (8 sets, daily range): BP systolic 121–155; BP diastolic 58–94; PULSE 55–72; RESP 16–20; TEMP 36.1–36.4; O2SAT 96–98
[2024-01-19] MEDS: oxyCODONE HCl Immed Release 5 MG TABLET PO (00:45)
[2024-01-19] MEDS: Melatonin 3 MG TABLET 6 MG PO (00:46)
[2024-01-19] MEDS: metroNIDAZOLE/NS 500 MG/100 ML PIGGYBACK 100 MG IV ×3 (05:44→21:26)
[2024-01-19] MEDS: Omeprazole 20 MG CAPSULE.DR PO (05:45)
[2024-01-19 07:18] LABS: Hematocrit 23.5 % (37.0-47.0); Hemoglobin 8.1 g/dl (12.0-16.0); Mean Corpuscular HGB Conc 34.5 g/dl (31.0-35.0); Mean Corpuscular Hemoglobin 32.9 pg (27.0-33.0); Mean Corpuscular Volume 95.5 fL (80.0-98.0); Mean Platelet Volume 10.3 fL (9.4-12.3); Platelet Count 205 X10*3/uL (160-400); Red Blood Count 2.46 X10*6/uL (4.20-5.50); Red Cell Distribution Width 13.8 % (11.0-16.0); White Blood Count 6.3 X10*3/uL (4.8-10.8)
[2024-01-19] MEDS: Aspirin Enteric Coated 81 MG TABLET.DR PO (07:50)
[2024-01-19] MEDS: Loratadine 10 MG TABLET PO (07:50)
[2024-01-19] MEDS: Cholecalciferol (Vitamin D3) 25 MCG TABLET PO (07:50)
[2024-01-19] MEDS: Ascorbic Acid 500 MG TABLET PO (07:50)
[2024-01-19] MEDS: NIFEdipine ER 30 MG TAB.ER.24 PO (07:50)
[2024-01-19] MEDS: Cyanocobalamin (Vitamin B-12) 1,000 MCG TABLET 1000 MCG PO (07:50)
[2024-01-19] MEDS: Ferrous Sulfate 324 MG TABLET.DR PO (07:50)
[2024-01-19] MEDS: Lactated Ringers 1,000 ML 80 ML IVCONT ×2 (07:53→19:56)
[2024-01-19] MEDS: Fluticasone Propionate 250 MCG BLST.W.DEV 2 PUFF INHALE ×2 (08:20→20:26)
[2024-01-19 08:49] LABS: Alanine Aminotransferase 33 U/L (0-31); Albumin Level 3.1 g/dL (3.5-5.0); Alkaline Phosphatase 68 U/L (39-117); Aspartate Amino Transferase 38 U/L (5-31); Bilirubin Direct 0.2 mg/dL (0.0-0.5); Bilirubin Total 0.3 mg/dL (0.0-1.0); Total Protein 5.6 g/dL (6.5-8.0)
--- NOTE | 2024-01-19 09:15 | P.PNGS_ITS ---
Subjective Subjective Date of Service: 01/19/24 Interval history: Patient is somewhat confused this morning. Complaining of abdominal discomfort. Physical Exam 2 Vital Signs: Vital Signs: Last Vital Signs Temp 97 F 01/19/24 06:53 Pulse 65 01/19/24 08:20 Resp 18 01/19/24 08:20 BP 121/58 L 01/19/24 07:50 Pulse Ox 97 01/19/24 06:53 O2 Del Method Room Air 01/19/24 06:53 BMI result Body Mass Index 30.9 GI: Other: Corpulent abdomen. Right upper quadrant tenderness as was left lower quadrant tenderness. Objective Data Active Medications Acetaminophen (Acetaminophen 325 Mg Tablet) 650 mg PO Q6H PRN PRN Reason: Pain, Mild (Pain Scale 1-3) Last Admin: 01/18/24 21:36 Dose: 650 mg Documented By: PARISH Albuterol Sulfate (Albuterol Sulfate 90 Mcg 8 Gm Inhaler) 2 puff INHALE RQ6H PRN PRN Reason: Bronchodilation Amitriptyline HCl (Amitriptyline Hcl 10 Mg Tablet) 10 mg PO BEDTIME [facility] Last Admin: 01/18/24 20:18 Dose: 10 mg Documented By: PARISH Ascorbic Acid (Ascorbic Acid 500 Mg Tablet) 500 mg PO DAILY [facility] Last Admin: 01/19/24 07:50 Dose: 500 mg Documented By: MIRANDA Aspirin (Aspirin Enteric Coated 81 Mg Tablet.) 81 mg PO DAILY [facility] Last Admin: 01/19/24 07:50 Dose: 81 mg Documented By: MIRANDA Atorvastatin Calcium (Atorvastatin Calcium 80 Mg Tablet) 80 mg PO BEDTIME [facility] Last Admin: 01/18/24 20:19 Dose: 80 mg Documented By: PARISH Benzonatate (Benzonatate 100 Mg Capsule) 100 mg PO TID PRN PRN Reason: Cough Cyanocobalamin (Cyanocobalamin (Vitamin B-12) 1,000 Mcg Tablet) 1,000 mcg PO DAILY [facility] Last Admin: 01/19/24 07:50 Dose: 1,000 mcg Documented By: MIRANDA Diphenhydramine HCl (Diphenhydramine Hcl 25 Mg Capsule) 25 mg PO DAILY PRN PRN Reason: Itching Ferrous Sulfate (Ferrous Sulfate 324 Mg Tablet.) 324 mg PO DAILY [facility] Last Admin: 01/19/24 07:50 Dose: 324 mg Documented By: MIRANDA Fluticasone Propionate (Fluticasone Propionate 250 Mcg Blst.W.Dev) 2 puff INHALE RBID [facility] Last Admin: 01/19/24 08:20 Dose: 2 puff Documented By: CLEO Levofloxacin (Levaquin) 750 mg in 150 mls @ 100 mls/hr IV Q48H [facility] Last Infusion: 01/18/24 13:55 Dose: Infused Documented By: MIRANDA Metronidazole (Flagyl) 500 mg in 100 mls @ 100 mls/hr IV Q8H [facility] Last Infusion: 01/19/24 06:44 Dose: Infused Documented By: PARISH Lactated Ringer's (Lr) 1,000 mls @ 80 mls/hr IVCONT .[id number] [facility] Last Admin: 01/19/24 07:53 Dose: 80 mls/hr Documented By: MIRANDA Loratadine (Loratadine 10 Mg Tablet) 10 mg PO DAILY [facility] Last Admin: 01/19/24 07:50 Dose: 10 mg Documented By: MIRANDA Melatonin (Melatonin 3 Mg Tablet) 6 mg PO BEDTIME PRN PRN Reason: Insomnia Last Admin: 01/19/24 00:46 Dose: 6 mg Documented By: PARISH Metoprolol Tartrate (Metoprolol Tartrate 25 Mg Tablet) 25 mg PO BID [facility]; Protocol Last Admin: 01/19/24 07:53 Dose: Not Given Documented By: MIRANDA Non-Admin Reason: Decreased Heart Rate Nifedipine (Nifedipine Er 30 Mg Tab.Er.24) 30 mg PO DAILY [facility] Last Admin: 01/19/24 07:50 Dose: 30 mg Documented By: MIRANDA Omeprazole (Omeprazole 20 Mg Capsule.Dr) 20 mg PO DAILY@0630 [facility] Last Admin: 01/19/24 05:45 Dose: 20 mg Documented By: PARISH Ondansetron HCl (Ondansetron Hcl 4 Mg/2 Ml Vial) 4 mg IVPUSH Q8H PRN PRN Reason: Nausea and Vomiting Oxycodone HCl (Oxycodone Hcl Immed Release 5 Mg Tablet) 5 mg PO DAILY PRN PRN Reason: Pain (Scale Score 4-6) Last Admin: 01/17/24 14:02 Dose: 5 mg Documented By: WANG Sodium Chloride (0.9 % Sodium Chloride Flush 3 Ml Syringe) 3 ml IVFLUSH QSHIFT [facility] Last Admin: 01/19/24 06:52 Dose: Not Given Documented By: MIRANDA Non-Admin Reason: IV Running Vitamin D (Cholecalciferol (Vitamin D3) 25 Mcg Tablet) 25 mcg PO DAILY [facility] Last Admin: 01/19/24 07:50 Dose: 25 mcg Documented By: MIRANDA Labs 01/19/24 06:02 01/18/24 06:05 Labs: Laboratory Results - last 24 hr 01/18/24 01/19/24 06:05 06:02 MCV 95.5 MCH 32.9 MCHC 34.5 RDW 13.8 Plt Count 205 MPV 10.3 Absolute Nucleated RBC 0.000 Nucleated RBC % (auto) 0.0 Iron 44 TIBC 175 L % Saturation 25 Unsat Iron Binding 131 Ferritin 735 H Total Bilirubin 0.3 Direct Bilirubin 0.2 AST 38 H ALT 33 H Alkaline Phosphatase 68 Total Protein 5.6 L Albumin 3.1 L Blood Type A Positive Antibody Screen NEGATIVE Procedures Date of Service Date of Service: 01/19/24 Progress Note: A&P Assessment and plan (1) Cholecystitis: Status: Acute Plan Sonographic findings noted. Patient is a very suboptimal operative candidate. We will arrange for IR gallbladder drainage for today based on clinical findings and sonographic findings. Time Spent With Patient Time: Total time managing care of this patient today ____ minutes. Quality Stroke Does the patient have a stroke diagnosis?: No VTE Prior VTE?: No VTE Risk Level:: Medical - moderate - high VTE Device Contraindication: N/A - Device Ordered VTE Drug Contraindication: Treatment Not Indicated
[2024-01-19] MEDS: ondansetron HCL 4 MG/2 ML VIAL IVPUSH (09:46)
[2024-01-19 10:42] LABS: INTERNATIONAL NORM RATIO 1.2 (0.9-1.1); Prothrombin Time 14.3 SEC (11.1-13.3)
--- NOTE | 2024-01-19 12:50 | P.PNIM_ITS ---
Subjective Subjective Date of Service: 01/19/24 Interval History: pancolitis Review of Systems no abd pain ,no blood in the stool diarrhea improving has some nausea has some ruq pressure /palpation Physical Exam 2 Vital Signs: Vital Signs: Last Vital Signs Temp 97 F 01/19/24 06:53 Pulse 65 01/19/24 08:20 Resp 18 01/19/24 08:20 BP 121/58 L 01/19/24 07:50 Pulse Ox 97 01/19/24 06:53 O2 Del Method Room Air 01/19/24 06:53 BMI result Body Mass Index 30.9 General: AO X 3, no acute distress Resp: CTA bilateral CVS: S1,S2,RRR GI: +BS, no tenderness, no distention Skin: No rash Neuro: motor grossly intact Psych: appropriate affect . Objective Data Active Medications Acetaminophen (Acetaminophen 325 Mg Tablet) 650 mg PO Q6H PRN PRN Reason: Pain, Mild (Pain Scale 1-3) Last Admin: 01/18/24 21:36 Dose: 650 mg Documented By: PARISH Albuterol Sulfate (Albuterol Sulfate 90 Mcg 8 Gm Inhaler) 2 puff INHALE RQ6H PRN PRN Reason: Bronchodilation Amitriptyline HCl (Amitriptyline Hcl 10 Mg Tablet) 10 mg PO BEDTIME [facility] Last Admin: 01/18/24 20:18 Dose: 10 mg Documented By: PARISH Ascorbic Acid (Ascorbic Acid 500 Mg Tablet) 500 mg PO DAILY [facility] Last Admin: 01/19/24 07:50 Dose: 500 mg Documented By: MIRANDA Aspirin (Aspirin Enteric Coated 81 Mg Tablet.) 81 mg PO DAILY [facility] Last Admin: 01/19/24 07:50 Dose: 81 mg Documented By: MIRANDA Atorvastatin Calcium (Atorvastatin Calcium 80 Mg Tablet) 80 mg PO BEDTIME [facility] Last Admin: 01/18/24 20:19 Dose: 80 mg Documented By: PARISH Benzonatate (Benzonatate 100 Mg Capsule) 100 mg PO TID PRN PRN Reason: Cough Cyanocobalamin (Cyanocobalamin (Vitamin B-12) 1,000 Mcg Tablet) 1,000 mcg PO DAILY [facility] Last Admin: 01/19/24 07:50 Dose: 1,000 mcg Documented By: MIRANDA Diphenhydramine HCl (Diphenhydramine Hcl 25 Mg Capsule) 25 mg PO DAILY PRN PRN Reason: Itching Ferrous Sulfate (Ferrous Sulfate 324 Mg Tablet.) 324 mg PO DAILY [facility] Last Admin: 01/19/24 07:50 Dose: 324 mg Documented By: IMRANDA Fluticasone Propionate (Fluticasone Propionate 250 Mcg Blst.W.Dev) 2 puff INHALE RBID [facility] Last Admin: 01/19/24 08:20 Dose: 2 puff Documented By: CLEO Levofloxacin (Levaquin) 750 mg in 150 mls @ 100 mls/hr IV Q48H [facility] Last Infusion: 01/18/24 13:55 Dose: Infused Documented By: MIRANDA Metronidazole (Flagyl) 500 mg in 100 mls @ 100 mls/hr IV Q8H [facility] Last Infusion: 01/19/24 06:44 Dose: Infused Documented By: PARISH Lactated Ringer's (Lr) 1,000 mls @ 80 mls/hr IVCONT .[id number] [facility] Last Admin: 01/19/24 07:53 Dose: 80 mls/hr Documented By: MIRANDA Loratadine (Loratadine 10 Mg Tablet) 10 mg PO DAILY [facility] Last Admin: 01/19/24 07:50 Dose: 10 mg Documented By: MIRANDA Melatonin (Melatonin 3 Mg Tablet) 6 mg PO BEDTIME PRN PRN Reason: Insomnia Last Admin: 01/19/24 00:46 Dose: 6 mg Documented By: PARISH Metoprolol Tartrate (Metoprolol Tartrate 25 Mg Tablet) 25 mg PO BID [facility]; Protocol Last Admin: 01/19/24 07:53 Dose: Not Given Documented By: MIRANDA Non-Admin Reason: Decreased Heart Rate Nifedipine (Nifedipine Er 30 Mg Tab.Er.24) 30 mg PO DAILY [facility] Last Admin: 01/19/24 07:50 Dose: 30 mg Documented By: MIRANDA Omeprazole (Omeprazole 20 Mg Capsule.) 20 mg PO DAILY@0630 [facility] Last Admin: 01/19/24 05:45 Dose: 20 mg Documented By: PARISH Ondansetron HCl (Ondansetron Hcl 4 Mg/2 Ml Vial) 4 mg IVPUSH Q8H PRN PRN Reason: Nausea and Vomiting Last Admin: 01/19/24 09:46 Dose: 4 mg Documented By: MIRANDA Oxycodone HCl (Oxycodone Hcl Immed Release 5 Mg Tablet) 5 mg PO DAILY PRN PRN Reason: Pain (Scale Score 4-6) Last Admin: 01/17/24 14:02 Dose: 5 mg Documented By: WANG Sodium Chloride (0.9 % Sodium Chloride Flush 3 Ml Syringe) 3 ml IVFLUSH QSHIFT [facility] Last Admin: 01/19/24 06:52 Dose: Not Given Documented By: MIRANDA Non-Admin Reason: IV Running Vitamin D (Cholecalciferol (Vitamin D3) 25 Mcg Tablet) 25 mcg PO DAILY [facility] Last Admin: 01/19/24 07:50 Dose: 25 mcg Documented By: MIRANDA Labs 01/19/24 06:02 01/18/24 06:05 Labs: Laboratory Results - last 24 hr 01/18/24 01/19/24 01/19/24 06:05 06:02 10:30 MCV 95.5 MCH 32.9 MCHC 34.5 RDW 13.8 Plt Count 205 MPV 10.3 Absolute Nucleated RBC 0.000 Nucleated RBC % (auto) 0.0 PT 14.3 H INR 1.2 H Total Bilirubin 0.3 Direct Bilirubin 0.2 AST 38 H ALT 33 H Alkaline Phosphatase 68 Total Protein 5.6 L Albumin 3.1 L Blood Type A Positive Antibody Screen NEGATIVE Assessment and Plan (1) Cholecystitis: Status: Acute (2) Colitis: Status: Acute Assessment and Plan: 88-year-old female with a PMH significant for?HFpEF, aortic valve replacement s/p TAVR, mild dementia, hx of breast cancer, CAD, osteoporosis, asthma, lifelong anemia, and macular degeneration who presents to the ED from assisted living with?3 days of abdominal pain and cramping w/u has revealed pancolitis Pancolitis--infectious vs imflamatory, improving -continue IV levaquin + Flagyl started 01/15 -C dif negative, linda studies abd us noted from yesterday-? cholecytsitis . Patient is a very suboptimal operative candidate, surgery followup for IR gallbladder drainage for today -seen by Gen Surg--possible ir drainge -seen by GI--declined colonoscopy -liquid diet and advance as tolerated Acute on chronic anemia--d/t colitis, check iron studies Distended Gallbladder--RUQ US CAD Continue aspirin, statin HTN, continue metoprolol, nifedipine Asthma Not in acute exacerbation Continue home inhalers Chronic anemia H&H at baseline Continue iron supplementation Follow CBC Full Code DVT Prophylaxis: Pneumatic boots due to anemia and history of GI bleeds requiring transfusion need for inpatient: IV Abx for pancolitis, not able take much by mouth, need for expert eval- need Ir gudeded drainage. Quality Stroke Does the patient have a stroke diagnosis?: No VTE Prior VTE?: No VTE Risk Level:: Medical - moderate - high VTE Device Contraindication: N/A - Device Ordered VTE Drug Contraindication: Treatment Not Indicated
--- NOTE | 2024-01-19 18:22 | PC.NURSE ---
Pt daughter at bedside asking for an update from MD/ surgeon tomorrow after IR gallbladder drainage, Daughters contact information in chart, will pass along to night RN and case management.
[2024-01-19] MEDS: Atorvastatin Calcium 80 MG TABLET PO (20:13)
[2024-01-19] MEDS: Metoprolol Tartrate 25 MG TABLET PO (20:14)
[2024-01-19] MEDS: Amitriptyline HCl 10 MG TABLET PO (20:14)
[2024-01-19] MEDS: Acetaminophen 325 MG TABLET 650 MG PO (23:44)
[2024-01-20 03:25] VITALS: BP 131/60; PULSE 70; RESP 18; TEMP 36.8; O2SAT 94
[2024-01-20] MEDS: metroNIDAZOLE/NS 500 MG/100 ML PIGGYBACK 100 MG IV ×2 (05:31→22:13)
[2024-01-20] MEDS: Omeprazole 20 MG CAPSULE.DR PO (05:31)
[2024-01-20 07:32] VITALS: BP 128/59; PULSE 69; RESP 18; TEMP 36.2; O2SAT 94
--- NOTE | 2024-01-20 07:47 | PM.PNGS ---
Subjective Subjective Date of Service: 01/20/24 Interval history: Still complaining of right upper abdominal discomfort. Physical Exam Vital Signs: Vital Signs: Last Vital Signs Temp 97.2 F 01/20/24 07:32 Pulse 69 01/20/24 07:32 Resp 18 01/20/24 07:32 BP 128/59 L 01/20/24 07:32 Pulse Ox 94 01/20/24 07:32 O2 Del Method Room Air 01/20/24 07:32 BMI result Body Mass Index 30.9 GI: Other: Right upper quadrant tenderness, positive Parker sign. Mild lower abdominal tenderness but no evidence of any guarding, rebound, rigidity. Objective Data Active Medications Acetaminophen (Acetaminophen 325 Mg Tablet) 650 mg PO Q6H PRN PRN Reason: Pain, Mild (Pain Scale 1-3) Last Admin: 01/19/24 23:44 Dose: 650 mg Documented By: PARISH Albuterol Sulfate (Albuterol Sulfate 90 Mcg 8 Gm Inhaler) 2 puff INHALE RQ6H PRN PRN Reason: Bronchodilation Amitriptyline HCl (Amitriptyline Hcl 10 Mg Tablet) 10 mg PO BEDTIME [facility] Last Admin: 01/19/24 20:14 Dose: 10 mg Documented By: PARISH Ascorbic Acid (Ascorbic Acid 500 Mg Tablet) 500 mg PO DAILY [facility] Last Admin: 01/19/24 07:50 Dose: 500 mg Documented By: MIRANDA Aspirin (Aspirin Enteric Coated 81 Mg Tablet.) 81 mg PO DAILY [facility] Last Admin: 01/19/24 07:50 Dose: 81 mg Documented By: MIRANDA Atorvastatin Calcium (Atorvastatin Calcium 80 Mg Tablet) 80 mg PO BEDTIME [facility] Last Admin: 01/19/24 20:13 Dose: 80 mg Documented By: PARISH Benzonatate (Benzonatate 100 Mg Capsule) 100 mg PO TID PRN PRN Reason: Cough Cyanocobalamin (Cyanocobalamin (Vitamin B-12) 1,000 Mcg Tablet) 1,000 mcg PO DAILY [facility] Last Admin: 01/19/24 07:50 Dose: 1,000 mcg Documented By: MIRANDA Diphenhydramine HCl (Diphenhydramine Hcl 25 Mg Capsule) 25 mg PO DAILY PRN PRN Reason: Itching Ferrous Sulfate (Ferrous Sulfate 324 Mg Tablet.) 324 mg PO DAILY [facility] Last Admin: 01/19/24 07:50 Dose: 324 mg Documented By: MIRANDA Fluticasone Propionate (Fluticasone Propionate 250 Mcg Blst.W.Dev) 2 puff INHALE RBID [facility] Last Admin: 01/19/24 20:26 Dose: 2 puff Documented By: ANGELICA Levofloxacin (Levaquin) 750 mg in 150 mls @ 100 mls/hr IV Q48H [facility] Last Infusion: 01/18/24 13:55 Dose: Infused Documented By: MIRANDA Metronidazole (Flagyl) 500 mg in 100 mls @ 100 mls/hr IV Q8H [facility] Last Admin: 01/20/24 05:31 Dose: 100 mls/hr Documented By: PARISH Lactated Ringer's (Lr) 1,000 mls @ 80 mls/hr IVCONT .[id number] [facility] Last Admin: 01/19/24 19:56 Dose: 80 mls/hr Documented By: PARISH Loratadine (Loratadine 10 Mg Tablet) 10 mg PO DAILY [facility] Last Admin: 01/19/24 07:50 Dose: 10 mg Documented By: MIRANDA Melatonin (Melatonin 3 Mg Tablet) 6 mg PO BEDTIME PRN PRN Reason: Insomnia Last Admin: 01/19/24 00:46 Dose: 6 mg Documented By: PARISH Metoprolol Tartrate (Metoprolol Tartrate 25 Mg Tablet) 25 mg PO BID [facility]; Protocol Last Admin: 01/19/24 20:14 Dose: 25 mg Documented By: PARISH Nifedipine (Nifedipine Er 30 Mg Tab.Er.24) 30 mg PO DAILY [facility] Last Admin: 01/19/24 07:50 Dose: 30 mg Documented By: MIRANDA Omeprazole (Omeprazole 20 Mg Capsule.Dr) 20 mg PO DAILY@0630 [facility] Last Admin: 01/20/24 05:31 Dose: 20 mg Documented By: PARISH Ondansetron HCl (Ondansetron Hcl 4 Mg/2 Ml Vial) 4 mg IVPUSH Q8H PRN PRN Reason: Nausea and Vomiting Last Admin: 01/19/24 09:46 Dose: 4 mg Documented By: MIRANDA Oxycodone HCl (Oxycodone Hcl Immed Release 5 Mg Tablet) 5 mg PO DAILY PRN PRN Reason: Pain (Scale Score 4-6) Last Admin: 01/17/24 14:02 Dose: 5 mg Documented By: WANG Sodium Chloride (0.9 % Sodium Chloride Flush 3 Ml Syringe) 3 ml IVFLUSH QSHIFT [facility] Last Admin: 01/19/24 21:26 Dose: Not Given Documented By: PARISH Non-Admin Reason: IV Running Vitamin D (Cholecalciferol (Vitamin D3) 25 Mcg Tablet) 25 mcg PO DAILY [facility] Last Admin: 01/19/24 07:50 Dose: 25 mcg Documented By: MIRANDA Labs 01/19/24 06:02 01/18/24 06:05 Labs: Laboratory Results - last 24 hr 01/18/24 01/19/24 06:05 10:30 PT 14.3 H INR 1.2 H Total Bilirubin 0.3 Direct Bilirubin 0.2 AST 38 H ALT 33 H Alkaline Phosphatase 68 Total Protein 5.6 L Albumin 3.1 L Procedures Date of Service Date of Service: 01/20/24 Progress Note: A&P Assessment and plan (1) Cholecystitis: Status: Acute (2) Colitis: Status: Acute Plan Patient is scheduled for IR gallbladder drainage in for today. To follow Time Spent With Patient Time: Total time managing care of this patient today ____ minutes. Quality Stroke Does the patient have a stroke diagnosis?: No VTE Prior VTE?: No VTE Risk Level:: Medical - moderate - high VTE Device Contraindication: N/A - Device Ordered VTE Drug Contraindication: Treatment Not Indicated
[2024-01-20] MEDS: Fluticasone Propionate 250 MCG BLST.W.DEV 2 PUFF INHALE ×2 (09:04→19:08)
[2024-01-20] MEDS: Lactated Ringers 1,000 ML 80 ML IVCONT (10:41)
--- NOTE | 2024-01-20 12:47 | MHC.CM.PN ---
emr reviewed, per multidisciplinary rounds pt w/have choley tube placed today, plan for pt to return to [facility] once tolerating diet, cm will cont to follow dc needs.
--- NOTE | 2024-01-20 15:21 | HO.PM.IMPN ---
Subjective Subjective Date of Service: 01/20/24 Interval History: colitis ,cholecytitis Review of Systems diarrhae improving no fever abd discomfort somewhat on plapation Physical Exam Vital Signs: Vital Signs: Last Vital Signs Temp 97.2 F 01/20/24 07:32 Pulse 69 01/20/24 07:32 Resp 18 01/20/24 07:32 BP 128/59 L 01/20/24 07:32 Pulse Ox 94 01/20/24 07:32 O2 Del Method Room Air 01/20/24 07:32 BMI result Body Mass Index 30.9 General: AO X 3, no acute distress Resp: CTA bilateral CVS: S1,S2,RRR GI: +BS, no tenderness, no distention Skin: No rash Neuro: motor grossly intact Psych: appropriate affect . Objective Data Active Medications Acetaminophen (Acetaminophen 325 Mg Tablet) 650 mg PO Q6H PRN PRN Reason: Pain, Mild (Pain Scale 1-3) Last Admin: 01/19/24 23:44 Dose: 650 mg Documented By: PARISH Albuterol Sulfate (Albuterol Sulfate 90 Mcg 8 Gm Inhaler) 2 puff INHALE RQ6H PRN PRN Reason: Bronchodilation Amitriptyline HCl (Amitriptyline Hcl 10 Mg Tablet) 10 mg PO BEDTIME [facility] Last Admin: 01/19/24 20:14 Dose: 10 mg Documented By: PARISH Ascorbic Acid (Ascorbic Acid 500 Mg Tablet) 500 mg PO DAILY [facility] Last Admin: 01/20/24 07:54 Dose: Not Given Documented By: JOSEPH Non-Admin Reason: NPO Aspirin (Aspirin Enteric Coated 81 Mg Tablet.) 81 mg PO DAILY [facility] Last Admin: 01/20/24 07:54 Dose: Not Given Documented By: JOSEPH Non-Admin Reason: NPO Atorvastatin Calcium (Atorvastatin Calcium 80 Mg Tablet) 80 mg PO BEDTIME [facility] Last Admin: 01/19/24 20:13 Dose: 80 mg Documented By: PARISH Benzonatate (Benzonatate 100 Mg Capsule) 100 mg PO TID PRN PRN Reason: Cough Cyanocobalamin (Cyanocobalamin (Vitamin B-12) 1,000 Mcg Tablet) 1,000 mcg PO DAILY [facility] Last Admin: 01/20/24 07:54 Dose: Not Given Documented By: JOSEPH Non-Admin Reason: NPO Diphenhydramine HCl (Diphenhydramine Hcl 25 Mg Capsule) 25 mg PO DAILY PRN PRN Reason: Itching Ferrous Sulfate (Ferrous Sulfate 324 Mg Tablet.) 324 mg PO DAILY [facility] Last Admin: 01/20/24 07:56 Dose: Not Given Documented By: JOSEPH Non-Admin Reason: NPO Fluticasone Propionate (Fluticasone Propionate 250 Mcg Blst.W.Dev) 2 puff INHALE RBID [facility] Last Admin: 01/20/24 09:04 Dose: 2 puff Documented By: GEOFF Metronidazole (Flagyl) 500 mg in 100 mls @ 100 mls/hr IV Q8H [facility] Last Infusion: 01/20/24 07:57 Dose: Infused Documented By: JOSEPH Lactated Ringer's (Lr) 1,000 mls @ 80 mls/hr IVCONT .[id number] [facility] Last Admin: 01/20/24 10:41 Dose: 80 mls/hr Documented By: JOSEPH Levofloxacin (Levaquin) 750 mg in 150 mls @ 100 mls/hr IV Q24H [facility] Loratadine (Loratadine 10 Mg Tablet) 10 mg PO DAILY [facility] Last Admin: 01/20/24 07:56 Dose: Not Given Documented By: JOSEPH Non-Admin Reason: NPO Melatonin (Melatonin 3 Mg Tablet) 6 mg PO BEDTIME PRN PRN Reason: Insomnia Last Admin: 01/19/24 00:46 Dose: 6 mg Documented By: PARISH Metoprolol Tartrate (Metoprolol Tartrate 25 Mg Tablet) 25 mg PO BID [facility]; Protocol Last Admin: 01/20/24 07:56 Dose: Not Given Documented By: JOSEPH Non-Admin Reason: NPO Nifedipine (Nifedipine Er 30 Mg Tab.Er.24) 30 mg PO DAILY [facility] Last Admin: 01/20/24 07:57 Dose: Not Given Documented By: JOSEPH Non-Admin Reason: Physician Approved Omeprazole (Omeprazole 20 Mg Capsule.) 20 mg PO DAILY@0630 [facility] Last Admin: 01/20/24 05:31 Dose: 20 mg Documented By: PARISH Ondansetron HCl (Ondansetron Hcl 4 Mg/2 Ml Vial) 4 mg IVPUSH Q8H PRN PRN Reason: Nausea and Vomiting Last Admin: 01/19/24 09:46 Dose: 4 mg Documented By: MIRANDA Oxycodone HCl (Oxycodone Hcl Immed Release 5 Mg Tablet) 5 mg PO DAILY PRN PRN Reason: Pain (Scale Score 4-6) Last Admin: 01/17/24 14:02 Dose: 5 mg Documented By: WANG Sodium Chloride (0.9 % Sodium Chloride Flush 3 Ml Syringe) 3 ml IVFLUSH QSHIFT [facility] Last Admin: 01/20/24 07:57 Dose: Not Given Documented By: JOSEPH Non-Admin Reason: IV Running Vitamin D (Cholecalciferol (Vitamin D3) 25 Mcg Tablet) 25 mcg PO DAILY [facility] Last Admin: 01/20/24 07:54 Dose: Not Given Documented By: JOSEPH Non-Admin Reason: NPO Labs 01/19/24 06:02 01/18/24 06:05 Assessment and Plan (1) Cholecystitis: Status: Acute (2) Colitis: Status: Acute Assessment and Plan: 88-year-old female with a PMH significant for?HFpEF, aortic valve replacement s/p TAVR, mild dementia, hx of breast cancer, CAD, osteoporosis, asthma, lifelong anemia, and macular degeneration who presents to the ED from assisted living with?3 days of abdominal pain and cramping w/u has revealed pancolitis Pancolitis--infectious vs imflamatory, improving -continue IV levaquin + Flagyl started 01/15 -C dif negative, linda studies abd us noted from yesterday-? cholecytsitis . Patient is a very suboptimal operative candidate, surgery followup for IR gallbladder drainage for today -seen by Gen Surg--possible ir drainge -seen by GI--declined colonoscopy -liquid diet and advance as tolerated Acute on chronic anemia--d/t colitis, check iron studies CAD Continue aspirin, statin HTN, continue metoprolol, nifedipine Asthma Not in acute exacerbation Continue home inhalers Chronic anemia H&H at baseline Continue iron supplementation Follow CBC Full Code DVT Prophylaxis: Pneumatic boots due to anemia and history of GI bleeds requiring transfusion need for inpatient: IV Abx for pancolitis, not able take much by mouth, need for expert eval- need Ir gudeded drainage. Quality Stroke Does the patient have a stroke diagnosis?: No VTE Prior VTE?: No VTE Risk Level:: Medical - moderate - high VTE Device Contraindication: N/A - Device Ordered VTE Drug Contraindication: Treatment Not Indicated
[2024-01-20 16:00] VITALS: BP 150/60; PULSE 76; RESP 18; TEMP 19.9; O2SAT 97
[2024-01-20] MEDS: Acetaminophen 325 MG TABLET 975 MG PO ×2 (18:00→23:33)
[2024-01-20] MEDS: Lidocaine 4 % Patch ADH..PATCH 1 PATCH TRANSDERMA (18:00)
[2024-01-20 19:09] VITALS: PULSE 76; RESP 18; O2SAT 98
--- NOTE | 2024-01-20 19:30 | PC.NURSE ---
This RN assumed care at 1900, Pt is AOx2, occasionally confused/forgetful, reporting 5/10 chronic R shoulder pain, unable to lift arm or be touched. Lung sounds clear throughout, BS x4, tender RUQ with palpation. Pt is on a full liquid diet. Lidocaine patch in place to right shoulder from day shift. Pt ambulates with 1xA to commode. VSS, #20 RAC. Meds given per OCT. Pt resting in bed with no apparent distress, Call lopez within reach.
[2024-01-20] MEDS: levoFLOXacin/D5W 750 MG/150 ML PIGGYBACK 100 MG IV (19:46)
[2024-01-20 20:00] VITALS: BP 138/63; PULSE 72; RESP 16; TEMP 36.1; O2SAT 96
[2024-01-20 20:06] VITALS: BP 138/63; PULSE 76
[2024-01-20] MEDS: Melatonin 3 MG TABLET 6 MG PO (20:06)
[2024-01-20] MEDS: Metoprolol Tartrate 25 MG TABLET PO (20:06)
[2024-01-20] MEDS: Amitriptyline HCl 10 MG TABLET PO (20:06)
[2024-01-20] MEDS: Atorvastatin Calcium 80 MG TABLET PO (20:06)
[2024-01-20] MEDS: oxyCODONE HCl Immed Release 5 MG TABLET PO (22:13)
[2024-01-20] MEDS: 0.9 % Sodium Chloride Flush 3 ML SYRINGE IVFLUSH (22:17)
[2024-01-21] VITALS (10 sets, daily range): BP systolic 122–150; BP diastolic 59–86; PULSE 58–75; RESP 16–20; TEMP 36.1–37; O2SAT 95–98
[2024-01-21] MEDS: Omeprazole 20 MG CAPSULE.DR PO (05:47)
[2024-01-21] MEDS: metroNIDAZOLE/NS 500 MG/100 ML PIGGYBACK 100 MG IV ×3 (05:48→21:54)
[2024-01-21] MEDS: Fluticasone Propionate 250 MCG BLST.W.DEV 2 PUFF INHALE ×2 (07:39→19:42)
--- NOTE | 2024-01-21 07:53 | P.PNGS_ITS ---
Subjective Subjective Date of Service: 01/21/24 Interval history: Status post IR gallbladder drainage 01/19. Patient states her right upper quadrant and wound was on markedly improved. Physical Exam 2 Vital Signs: Vital Signs: Last Vital Signs Temp 97.4 F 01/21/24 03:23 Pulse 58 01/21/24 03:23 Resp 16 01/21/24 03:23 BP 131/63 01/21/24 03:23 Pulse Ox 95 01/21/24 03:23 O2 Del Method Room Air 01/21/24 03:23 BMI result Body Mass Index 30.9 GI: Other: IR drain dressing site clean dry and intact. Bilious output in drainage bag. Less right upper quadrant tenderness. Objective Data Active Medications Acetaminophen (Acetaminophen 325 Mg Tablet) 975 mg PO Q6H PRN PRN Reason: Pain, Severe (Pain Scale 7-10) Albuterol Sulfate (Albuterol Sulfate 90 Mcg 8 Gm Inhaler) 2 puff INHALE RQ6H PRN PRN Reason: Bronchodilation Amitriptyline HCl (Amitriptyline Hcl 10 Mg Tablet) 10 mg PO BEDTIME [facility] Last Admin: 01/20/24 20:06 Dose: 10 mg Documented By: JUDSON Ascorbic Acid (Ascorbic Acid 500 Mg Tablet) 500 mg PO DAILY [facility] Last Admin: 01/20/24 07:54 Dose: Not Given Documented By: JOSEPH Non-Admin Reason: NPO Aspirin (Aspirin Enteric Coated 81 Mg Tablet.) 81 mg PO DAILY [facility] Last Admin: 01/20/24 07:54 Dose: Not Given Documented By: JOSEPH Non-Admin Reason: NPO Atorvastatin Calcium (Atorvastatin Calcium 80 Mg Tablet) 80 mg PO BEDTIME [facility] Last Admin: 01/20/24 20:06 Dose: 80 mg Documented By: JUDSON Benzonatate (Benzonatate 100 Mg Capsule) 100 mg PO TID PRN PRN Reason: Cough Cyanocobalamin (Cyanocobalamin (Vitamin B-12) 1,000 Mcg Tablet) 1,000 mcg PO DAILY [facility] Last Admin: 01/20/24 07:54 Dose: Not Given Documented By: JOSEPH Non-Admin Reason: NPO Diphenhydramine HCl (Diphenhydramine Hcl 25 Mg Capsule) 25 mg PO DAILY PRN PRN Reason: Itching Ferrous Sulfate (Ferrous Sulfate 324 Mg Tablet.) 324 mg PO DAILY [facility] Last Admin: 01/20/24 07:56 Dose: Not Given Documented By: JOSEPH Non-Admin Reason: NPO Fluticasone Propionate (Fluticasone Propionate 250 Mcg Blst.W.Dev) 2 puff INHALE RBID [facility] Last Admin: 01/21/24 07:39 Dose: 2 puff Documented By: ANA MARIA Metronidazole (Flagyl) 500 mg in 100 mls @ 100 mls/hr IV Q8H [facility] Last Infusion: 01/21/24 07:15 Dose: Infused Documented By: COTEMA Levofloxacin (Levaquin) 750 mg in 150 mls @ 100 mls/hr IV Q24H [facility] Last Infusion: 01/20/24 21:16 Dose: Infused Documented By: JUDSON Lidocaine (Lidocaine 4 % Patch Adh..Patch) 1 patch TRANSDERMA DAILY [facility]; Protocol Last Admin: 01/20/24 18:00 Dose: 1 patch Documented By: JOSEPH Loratadine (Loratadine 10 Mg Tablet) 10 mg PO DAILY [facility] Last Admin: 01/20/24 07:56 Dose: Not Given Documented By: JOSEPH Non-Admin Reason: NPO Melatonin (Melatonin 3 Mg Tablet) 6 mg PO BEDTIME PRN PRN Reason: Insomnia Last Admin: 01/20/24 20:06 Dose: 6 mg Documented By: JUDSON Metoprolol Tartrate (Metoprolol Tartrate 25 Mg Tablet) 25 mg PO BID [facility]; Protocol Last Admin: 01/20/24 20:06 Dose: 25 mg Documented By: JUDSON Multi-Ingred Cream/Lotion/Oil/Oint (Mineral Oil/Petrolatum,White 106 Gm Tube) 1 appl TOPICAL 5XD PRN PRN Reason: SEBORRHEIC KERATOSES Nifedipine (Nifedipine Er 30 Mg Tab.Er.24) 30 mg PO DAILY [facility] Last Admin: 01/20/24 07:57 Dose: Not Given Documented By: JOSEPH Non-Admin Reason: Physician Approved Non-Formulary Medication (Vit C,A-Sw-Kqior-Lutein-Zeaxan [Preservision Areds-2]) 1 tab PO BID [facility] Omeprazole (Omeprazole 20 Mg Capsule.) 20 mg PO DAILY@0630 [facility] Last Admin: 01/21/24 05:47 Dose: 20 mg Documented By: JUDSON Ondansetron HCl (Ondansetron Hcl 4 Mg/2 Ml Vial) 4 mg IVPUSH Q8H PRN PRN Reason: Nausea and Vomiting Last Admin: 01/19/24 09:46 Dose: 4 mg Documented By: MIRANDA Oxycodone HCl (Oxycodone Hcl Immed Release 5 Mg Tablet) 5 mg PO DAILY PRN PRN Reason: Pain (Scale Score 4-6) Last Admin: 01/20/24 22:13 Dose: 5 mg Documented By: JUDSON Pyridoxine HCl (Pyridoxine Hcl (Vitamin B6) 50 Mg Tablet) 100 mg PO DAILY [facility] Sodium Chloride (0.9 % Sodium Chloride Flush 3 Ml Syringe) 3 ml IVFLUSH QSHIFT [facility] Last Admin: 01/20/24 22:17 Dose: 3 ml Documented By: JUDSON Vitamin D (Cholecalciferol (Vitamin D3) 25 Mcg Tablet) 25 mcg PO DAILY [facility] Last Admin: 01/20/24 07:54 Dose: Not Given Documented By: JOSEPH Non-Admin Reason: NPO Vitamin E (Vitamin E (Dl,Tocopheryl Acet) 180 Mg (400 Unit) Capsule) 180 mg PO DAILY [facility] Labs 01/19/24 06:02 01/18/24 06:05 Procedures Date of Service Date of Service: 01/21/24 Progress Note: A&P Assessment and plan (1) Cholecystitis: Status: Acute Plan Successful IR gallbladder drainage with marked improvement of symptoms. To follow Time Spent With Patient Time: Total time managing care of this patient today ____ minutes. Quality Stroke Does the patient have a stroke diagnosis?: No VTE Prior VTE?: No VTE Risk Level:: Medical - moderate - high VTE Device Contraindication: N/A - Device Ordered VTE Drug Contraindication: Treatment Not Indicated
[2024-01-21] MEDS: Vitamin E (Dl,Tocopheryl Acet) 180 MG (400 UNIT) CAPSULE PO (09:46)
[2024-01-21] MEDS: Loratadine 10 MG TABLET PO (09:46)
[2024-01-21] MEDS: Aspirin Enteric Coated 81 MG TABLET.DR PO (09:46)
[2024-01-21] MEDS: NIFEdipine ER 30 MG TAB.ER.24 PO (09:46)
[2024-01-21] MEDS: Metoprolol Tartrate 25 MG TABLET PO ×2 (09:47→20:09)
[2024-01-21] MEDS: Cholecalciferol (Vitamin D3) 25 MCG TABLET PO (09:47)
[2024-01-21] MEDS: 0.9 % Sodium Chloride Flush 3 ML SYRINGE IVFLUSH ×3 (09:47→20:10)
[2024-01-21] MEDS: Lidocaine 4 % Patch ADH..PATCH 1 PATCH TRANSDERMA (09:47)
[2024-01-21] MEDS: Ascorbic Acid 500 MG TABLET PO (09:47)
[2024-01-21] MEDS: Pyridoxine HCl (Vitamin B6) 50 MG TABLET 100 MG PO (09:47)
[2024-01-21] MEDS: Ferrous Sulfate 324 MG TABLET.DR PO (09:47)
[2024-01-21] MEDS: Cyanocobalamin (Vitamin B-12) 1,000 MCG TABLET 1000 MCG PO (09:47)
[2024-01-21] MEDS: levoFLOXacin/D5W 750 MG/150 ML PIGGYBACK 100 MG IV (12:59)
--- NOTE | 2024-01-21 13:25 | HO.PM.IMPN ---
Subjective Subjective Date of Service: 01/21/24 Interval History: colitis ,cholecytitis Review of Systems diarrhae improving,no fever abd discomfort somewhat on palpation Physical Exam Vital Signs: Vital Signs: Last Vital Signs Temp 96.9 F 01/21/24 08:00 Pulse 75 01/21/24 09:47 Resp 20 01/21/24 08:01 BP 137/66 01/21/24 09:47 Pulse Ox 97 01/21/24 08:00 O2 Del Method Room Air 01/21/24 08:00 BMI result Body Mass Index 30.9 General: AO X 3, no acute distress Resp: CTA bilateral CVS: S1,S2,RRR GI: +BS, no tenderness, no distention Skin: No rash Neuro: motor grossly intact Psych: appropriate affect . Objective Data Active Medications Acetaminophen (Acetaminophen 325 Mg Tablet) 975 mg PO Q6H PRN PRN Reason: Pain, Severe (Pain Scale 7-10) Albuterol Sulfate (Albuterol Sulfate 90 Mcg 8 Gm Inhaler) 2 puff INHALE RQ6H PRN PRN Reason: Bronchodilation Amitriptyline HCl (Amitriptyline Hcl 10 Mg Tablet) 10 mg PO BEDTIME [facility] Last Admin: 01/20/24 20:06 Dose: 10 mg Documented By: JUDSON Ascorbic Acid (Ascorbic Acid 500 Mg Tablet) 500 mg PO DAILY [facility] Last Admin: 01/21/24 09:47 Dose: 500 mg Documented By: ERUM Aspirin (Aspirin Enteric Coated 81 Mg Tablet.) 81 mg PO DAILY [facility] Last Admin: 01/21/24 09:46 Dose: 81 mg Documented By: ERUM Atorvastatin Calcium (Atorvastatin Calcium 80 Mg Tablet) 80 mg PO BEDTIME [facility] Last Admin: 01/20/24 20:06 Dose: 80 mg Documented By: JUDSON Benzonatate (Benzonatate 100 Mg Capsule) 100 mg PO TID PRN PRN Reason: Cough Cyanocobalamin (Cyanocobalamin (Vitamin B-12) 1,000 Mcg Tablet) 1,000 mcg PO DAILY [facility] Last Admin: 01/21/24 09:47 Dose: 1,000 mcg Documented By: ERUM Diphenhydramine HCl (Diphenhydramine Hcl 25 Mg Capsule) 25 mg PO DAILY PRN PRN Reason: Itching Ferrous Sulfate (Ferrous Sulfate 324 Mg Tablet.) 324 mg PO DAILY [facility] Last Admin: 01/21/24 09:47 Dose: 324 mg Documented By: ERUM Fluticasone Propionate (Fluticasone Propionate 250 Mcg Blst.W.Dev) 2 puff INHALE RBID [facility] Last Admin: 01/21/24 07:39 Dose: 2 puff Documented By: BRESNE Metronidazole (Flagyl) 500 mg in 100 mls @ 100 mls/hr IV Q8H [facility] Last Infusion: 01/21/24 07:15 Dose: Infused Documented By: ERUM Levofloxacin (Levaquin) 750 mg in 150 mls @ 100 mls/hr IV Q24H [facility] Last Admin: 01/21/24 12:59 Dose: 100 mls/hr Documented By: ERUM Lidocaine (Lidocaine 4 % Patch Adh..Patch) 1 patch TRANSDERMA DAILY [facility]; Protocol Last Admin: 01/21/24 09:47 Dose: 1 patch Documented By: ERUM Loratadine (Loratadine 10 Mg Tablet) 10 mg PO DAILY [facility] Last Admin: 01/21/24 09:46 Dose: 10 mg Documented By: ERUM Melatonin (Melatonin 3 Mg Tablet) 6 mg PO BEDTIME PRN PRN Reason: Insomnia Last Admin: 01/20/24 20:06 Dose: 6 mg Documented By: JUDSON Metoprolol Tartrate (Metoprolol Tartrate 25 Mg Tablet) 25 mg PO BID [facility]; Protocol Last Admin: 01/21/24 09:47 Dose: 25 mg Documented By: ERUM Multi-Ingred Cream/Lotion/Oil/Oint (Mineral Oil/Petrolatum,White 106 Gm Tube) 1 appl TOPICAL 5XD PRN PRN Reason: SEBORRHEIC KERATOSES Nifedipine (Nifedipine Er 30 Mg Tab.Er.24) 30 mg PO DAILY [facility] Last Admin: 01/21/24 09:46 Dose: 30 mg Documented By: ERUM Omeprazole (Omeprazole 20 Mg Capsule.) 20 mg PO DAILY@0630 [facility] Last Admin: 01/21/24 05:47 Dose: 20 mg Documented By: JUDSON Ondansetron HCl (Ondansetron Hcl 4 Mg/2 Ml Vial) 4 mg IVPUSH Q8H PRN PRN Reason: Nausea and Vomiting Last Admin: 01/19/24 09:46 Dose: 4 mg Documented By: MIRANDA Oxycodone HCl (Oxycodone Hcl Immed Release 5 Mg Tablet) 5 mg PO DAILY PRN PRN Reason: Pain (Scale Score 4-6) Last Admin: 01/20/24 22:13 Dose: 5 mg Documented By: JUDSON Pyridoxine HCl (Pyridoxine Hcl (Vitamin B6) 50 Mg Tablet) 100 mg PO DAILY [facility] Last Admin: 01/21/24 09:47 Dose: 100 mg Documented By: AGEMA Sodium Chloride (0.9 % Sodium Chloride Flush 3 Ml Syringe) 3 ml IVFLUSH QSHIFT [facility] Last Admin: 01/21/24 09:47 Dose: 3 ml Documented By: AGEMA Vitamin D (Cholecalciferol (Vitamin D3) 25 Mcg Tablet) 25 mcg PO DAILY [facility] Last Admin: 01/21/24 09:47 Dose: 25 mcg Documented By: COTEMA Vitamin E (Vitamin E (Dl,Tocopheryl Acet) 180 Mg (400 Unit) Capsule) 180 mg PO DAILY [facility] Last Admin: 01/21/24 09:46 Dose: 180 mg Documented By: ERUM Labs 01/19/24 06:02 01/18/24 06:05 Assessment and Plan (1) Cholecystitis: Status: Acute (2) Colitis: Status: Acute Assessment and Plan: 88-year-old female with a PMH significant for?HFpEF, aortic valve replacement s/p TAVR, mild dementia, hx of breast cancer, CAD, osteoporosis, asthma, lifelong anemia, and macular degeneration who presents to the ED from assisted living with?3 days of abdominal pain and cramping w/u has revealed pancolitis Pancolitis--infectious vs imflamatory, improving -continue IV levaquin + Flagyl started 01/15 -C dif negative, linda studies abd us noted from yesterday-? cholecytsitis . Patient is a very suboptimal operative candidate, surgery followup for IR gallbladder drainage for today -seen by Gen Surg--possible ir drainge -seen by GI--declined colonoscopy -liquid diet and advance as tolerated Acute on chronic anemia--d/t colitis, check iron studies CAD Continue aspirin, statin HTN, continue metoprolol, nifedipine Asthma Not in acute exacerbation Continue home inhalers Chronic anemia H&H at baseline Continue iron supplementation Follow CBC Full Code DVT Prophylaxis: Pneumatic boots due to anemia and history of GI bleeds requiring transfusion need for inpatient: IV Abx for pancolitis, not able take much by mouth, need for expert eval- need Ir gudeded drainage. Quality Stroke Does the patient have a stroke diagnosis?: No VTE Prior VTE?: No VTE Risk Level:: Medical - moderate - high VTE Device Contraindication: N/A - Device Ordered VTE Drug Contraindication: Treatment Not Indicated
[2024-01-21] MEDS: Amitriptyline HCl 10 MG TABLET PO (20:10)
[2024-01-21] MEDS: Melatonin 3 MG TABLET 6 MG PO (20:10)
[2024-01-21] MEDS: Atorvastatin Calcium 80 MG TABLET PO (20:10)
[2024-01-21] MEDS: Acetaminophen 325 MG TABLET 975 MG PO (20:13)
[2024-01-21] MEDS: ondansetron HCL 4 MG/2 ML VIAL IVPUSH (21:54)
[2024-01-22] VITALS (8 sets, daily range): BP systolic 108–130; BP diastolic 53–72; PULSE 56–78; RESP 17–20; TEMP 36–36.6; O2SAT 95–98
[2024-01-22] MEDS: Lactated Ringers 1,000 ML 100 ML IVCONT (00:29)
[2024-01-22 00:32] LABS: MANUAL DIFF FLAG NO
[2024-01-22 00:34] LABS: Basophils Percent Auto 0.4 % (0-2); Eosinophils Absolute Auto 0.2 X10*3/uL (0.0-0.4); Eosinophils Percent Auto 2.2 % (0-4); Hematocrit 25.6 % (37.0-47.0); Imm Gran Abs Auto 0.03 X10*3/uL (0.00-0.03); Imm Gran Pct Auto 0.4 % (0.0-0.4); Lymphocytes Absolute Auto 2.1 X10*3/uL (1.2-4.9); Mean Corpuscular HGB Conc 35.2 g/dl (31.0-35.0); Mean Corpuscular Hemoglobin 32.8 pg (27.0-33.0); Mean Corpuscular Volume 93.4 fL (80.0-98.0); Mean Platelet Volume 9.7 fL (9.4-12.3); Monocytes Absolute Auto 0.7 X10*3/uL (0.1-1.2); Monocytes Percent Auto 9.8 % (2-11); Neutrophils Percent Auto 57.2 % (45-73); Platelet Count 234 X10*3/uL (160-400); Red Blood Count 2.74 X10*6/uL (4.20-5.50); Red Cell Distribution Width 13.4 % (11.0-16.0); White Blood Count 6.9 X10*3/uL (4.8-10.8)
[2024-01-22 00:56] LABS: Alanine Aminotransferase 25 U/L (0-31); Albumin Level 3.1 g/dL (3.5-5.0); Alkaline Phosphatase 64 U/L (39-117); Anion Gap 12 (12-20); Aspartate Amino Transferase 42 U/L (5-31); Bilirubin Total 0.2 mg/dL (0.0-1.0); Blood Urea Nitrogen 11 mg/dL (9-16); C Reactive Protein 2.98 mg/dL (< or = 0.50); Calcium 9.2 mg/dL (8.4-10.2); Carbon Dioxide 23 mmol/L (22-29); Chloride 105 mmol/L (96-108); Creatinine Clr Calc Pharmacy 44.7; Estimated Glomerular Filt Rate 56; Glucose Random 134 mg/dL (60-115); Potassium 3.5 mmol/L (3.3-5.1); Sodium 136 mmol/L (135-145); Total Protein 5.9 g/dL (6.5-8.0)
[2024-01-22 01:08] LABS: Erythrocyte Sedimentation Rate 53 MM/HR (0-20)
--- NOTE | 2024-01-22 01:41 | PC.NURSE ---
Pt seen on bed alert and oriented, has short term memory deficits. Pt had bouts of vomiting later of the night, prn Zofran given, with some effect, then c/o feeling sick and dry heaving, feeling sweaty alternate with warm sensation, vitals WNL, also c/o random body shakes, Dr. Pratt was notified, labs ordered and drawn, for UA, awaiting for sample, prn Compazine was ordered but pt claimed nausea has subsided, NPO instructed to pt, IVF of LR [id number] started.
[2024-01-22 02:37] LABS: Appearance Urine Clear; Color Urine Yellow; Glucose Urine UA Negative (Negative); Leukocyte Esterase Urine Trace (Negative); Nitrite Urine Negative (Negative); UMIC TRIGGER UA YES; Urine Blood Negative (Negative); Urine Ketones Negative (Negative); Urine Protein Negative (Neg-Trace)
[2024-01-22 02:42] LABS: Bacteria Urine None Seen (None Seen); Hyaline Casts Urine 0-2 /LPF (0-2); RBC Urine 0-2 /HPF (0-2); WBC Urine 0-5 /HPF (0-5)
[2024-01-22 03:19] LABS: Lipase 32 U/L (8-78)
[2024-01-22] MEDS: metroNIDAZOLE/NS 500 MG/100 ML PIGGYBACK 100 MG IV ×3 (05:35→22:06)
--- NOTE | 2024-01-22 06:11 | PM.EVENT ---
Event Note Date of Service: 01/22/24 Event Note: 11:58 PM - contacted notify patient started to have episodes of vomiting and feeling of indigestion the was not improving with Zofran. She also was very sweaty and feeling sick again. Blood workup stat. There is no leukocytosis or worsening anemia. Lipase is normal. No significant changes in the LFT. CRP is elevated. Blood cultures were repeated. Patient is now NPO and started on IV fluids. Time Spent With Patient Time: Total time managing care of this patient today ____ minutes.
--- NOTE | 2024-01-22 08:52 | P.PNGS_ITS ---
Subjective Subjective Date of Service: 01/22/24 Interval history: Although difficult because of the patient's history of dementia, she claims that her abdominal symptoms have improved. She is hungry. She was made NPO for anxiety issues last evening. LFTs improving Physical Exam 2 Vital Signs: Vital Signs: Last Vital Signs Temp 97.9 F 01/22/24 07:08 Pulse 74 01/22/24 07:08 Resp 17 01/22/24 07:08 BP 130/72 01/22/24 07:08 Pulse Ox 96 01/22/24 07:08 O2 Del Method Room Air 01/22/24 07:08 BMI result Body Mass Index 30.9 GI: Other: Abdomen is soft. Nontender. Bilious drainage from IR drainage. Objective Data Active Medications Acetaminophen (Acetaminophen 325 Mg Tablet) 975 mg PO Q6H PRN PRN Reason: Pain, Severe (Pain Scale 7-10) Last Admin: 01/21/24 20:13 Dose: 975 mg Documented By: HODA Albuterol Sulfate (Albuterol Sulfate 90 Mcg 8 Gm Inhaler) 2 puff INHALE RQ6H PRN PRN Reason: Bronchodilation Amitriptyline HCl (Amitriptyline Hcl 10 Mg Tablet) 10 mg PO BEDTIME [facility] Last Admin: 01/21/24 20:10 Dose: 10 mg Documented By: HODA Ascorbic Acid (Ascorbic Acid 500 Mg Tablet) 500 mg PO DAILY [facility] Last Admin: 01/21/24 09:47 Dose: 500 mg Documented By: COTEMA Aspirin (Aspirin Enteric Coated 81 Mg Tablet.) 81 mg PO DAILY [facility] Last Admin: 01/21/24 09:46 Dose: 81 mg Documented By: COTEMA Atorvastatin Calcium (Atorvastatin Calcium 80 Mg Tablet) 80 mg PO BEDTIME [facility] Last Admin: 01/21/24 20:10 Dose: 80 mg Documented By: CASTILM Benzonatate (Benzonatate 100 Mg Capsule) 100 mg PO TID PRN PRN Reason: Cough Cyanocobalamin (Cyanocobalamin (Vitamin B-12) 1,000 Mcg Tablet) 1,000 mcg PO DAILY [facility] Last Admin: 01/21/24 09:47 Dose: 1,000 mcg Documented By: COTEMA Diphenhydramine HCl (Diphenhydramine Hcl 25 Mg Capsule) 25 mg PO DAILY PRN PRN Reason: Itching Ferrous Sulfate (Ferrous Sulfate 324 Mg Tablet.) 324 mg PO DAILY [facility] Last Admin: 01/21/24 09:47 Dose: 324 mg Documented By: ERUM Fluticasone Propionate (Fluticasone Propionate 250 Mcg Blst.W.Dev) 2 puff INHALE RBID [facility] Last Admin: 01/22/24 08:03 Dose: Not Given Documented By: NEYDA Non-Admin Reason: Patient Refused Metronidazole (Flagyl) 500 mg in 100 mls @ 100 mls/hr IV Q8H [facility] Last Infusion: 01/22/24 06:40 Dose: Infused Documented By: HODA Levofloxacin (Levaquin) 750 mg in 150 mls @ 100 mls/hr IV Q24H [facility] Last Infusion: 01/21/24 14:31 Dose: Infused Documented By: ERUM Lidocaine (Lidocaine 4 % Patch Adh..Patch) 1 patch TRANSDERMA DAILY [facility]; Protocol Last Admin: 01/21/24 09:47 Dose: 1 patch Documented By: ERUM Loratadine (Loratadine 10 Mg Tablet) 10 mg PO DAILY [facility] Last Admin: 01/21/24 09:46 Dose: 10 mg Documented By: ERUM Melatonin (Melatonin 3 Mg Tablet) 6 mg PO BEDTIME PRN PRN Reason: Insomnia Last Admin: 01/21/24 20:10 Dose: 6 mg Documented By: HODA Comments: for insomnia Metoprolol Tartrate (Metoprolol Tartrate 25 Mg Tablet) 25 mg PO BID [facility]; Protocol Last Admin: 01/21/24 20:09 Dose: 25 mg Documented By: HODA Multi-Ingred Cream/Lotion/Oil/Oint (Mineral Oil/Petrolatum,White 106 Gm Tube) 1 appl TOPICAL 5XD PRN PRN Reason: SEBORRHEIC KERATOSES Nifedipine (Nifedipine Er 30 Mg Tab.Er.24) 30 mg PO DAILY [facility] Last Admin: 01/21/24 09:46 Dose: 30 mg Documented By: ERUM Omeprazole (Omeprazole 20 Mg Capsule.) 20 mg PO DAILY@0630 [facility] Last Admin: 01/22/24 05:42 Dose: Not Given Documented By: HODA Non-Admin Reason: NPO Ondansetron HCl (Ondansetron Hcl 4 Mg/2 Ml Vial) 4 mg IVPUSH Q8H PRN PRN Reason: Nausea and Vomiting Last Admin: 01/21/24 21:54 Dose: 4 mg Documented By: HODA Oxycodone HCl (Oxycodone Hcl Immed Release 5 Mg Tablet) 5 mg PO DAILY PRN PRN Reason: Pain (Scale Score 4-6) Last Admin: 01/20/24 22:13 Dose: 5 mg Documented By: JUDSON Prochlorperazine Edisylate (Prochlorperazine Edisylate 10 Mg/2 Ml Vial) 5 mg IVPUSH Q4H PRN PRN Reason: Nausea and Vomiting Pyridoxine HCl (Pyridoxine Hcl (Vitamin B6) 50 Mg Tablet) 100 mg PO DAILY [facility] Last Admin: 01/21/24 09:47 Dose: 100 mg Documented By: ERUM Sodium Chloride (0.9 % Sodium Chloride Flush 3 Ml Syringe) 3 ml IVFLUSH QSHIFT [facility] Last Admin: 01/21/24 20:10 Dose: 3 ml Documented By: HODA Vitamin D (Cholecalciferol (Vitamin D3) 25 Mcg Tablet) 25 mcg PO DAILY [facility] Last Admin: 01/21/24 09:47 Dose: 25 mcg Documented By: ERUM Vitamin E (Vitamin E (Dl,Tocopheryl Acet) 180 Mg (400 Unit) Capsule) 180 mg PO DAILY [facility] Last Admin: 01/21/24 09:46 Dose: 180 mg Documented By: ERUM Labs 01/22/24 00:24 01/22/24 00:22 Labs: Laboratory Results - last 24 hr 01/22/24 01/22/24 01/22/24 00:22 00:24 00:26 MCV 93.4 MCH 32.8 MCHC 35.2 H RDW 13.4 Plt Count 234 MPV 9.7 Immature Gran % (Auto) 0.4 Neut % (Auto) 57.2 Lymph % (Auto) 30.0 [place] % (Auto) 9.8 Eos % (Auto) 2.2 Baso % (Auto) 0.4 Lymph # (Auto) 2.1 [place] # (Auto) 0.7 Eos # (Auto) 0.2 Baso # (Auto) 0.0 Abs Immat Gran (auto) 0.03 Absolute Neuts (auto) 4.0 Absolute Nucleated RBC 0.000 Nucleated RBC % (auto) 0.0 ESR 53 H Anion Gap 12 Estim Creat Clear Calc 44.7 Estimated GFR 56 Random Glucose 134 H Lactic Acid 1.0 Calcium 9.2 D Total Bilirubin 0.2 AST 42 H ALT 25 Alkaline Phosphatase 64 C-Reactive Protein 2.98 H C-React Prot High Sens Cancelled Total Protein 5.9 L Albumin 3.1 L Lipase 32 Hold Yellow Top See Note Urine Color Urine Appearance Urine pH Ur Specific [place] Urine Protein Urine Glucose (UA) Urine Ketones Urine Blood Urine Nitrite Ur Leukocyte Esterase Urine RBC Urine WBC Ur Squamous Epith Cells Urine Bacteria Hyaline Casts 01/22/24 02:15 MCV MCH MCHC RDW Plt Count MPV Immature Gran % (Auto) Neut % (Auto) Lymph % (Auto) [place] % (Auto) Eos % (Auto) Baso % (Auto) Lymph # (Auto) [place] # (Auto) Eos # (Auto) Baso # (Auto) Abs Immat Gran (auto) Absolute Neuts (auto) Absolute Nucleated RBC Nucleated RBC % (auto) ESR Anion Gap Estim Creat Clear Calc Estimated GFR Random Glucose Lactic Acid Calcium Total Bilirubin AST ALT Alkaline Phosphatase C-Reactive Protein C-React Prot High Sens Total Protein Albumin Lipase Hold Yellow Top Urine Color Yellow Urine Appearance Clear Urine pH 6.0 Ur Specific [place] 1.010 Urine Protein Negative Urine Glucose (UA) Negative Urine Ketones Negative Urine Blood Negative Urine Nitrite Negative Ur Leukocyte Esterase Trace H Urine RBC 0-2 Urine WBC 0-5 Ur Squamous Epith Cells 3-5 Urine Bacteria None Seen Hyaline Casts 0-2 Procedures Date of Service Date of Service: 01/22/24 Progress Note: A&P Assessment and plan (1) Cholecystitis: Status: Acute Plan Advanced diet as tolerated, encourage out of bed/incentive spirometry. No acute surgical issues at this time. We will see patient as an outpatient regarding gallbladder drainage management Time Spent With Patient Time: Total time managing care of this patient today ____ minutes. Quality Stroke Does the patient have a stroke diagnosis?: No VTE Prior VTE?: No VTE Risk Level:: Medical - moderate - high VTE Device Contraindication: N/A - Device Ordered VTE Drug Contraindication: Treatment Not Indicated
[2024-01-22] MEDS: 0.9 % Sodium Chloride Flush 3 ML SYRINGE IVFLUSH ×3 (09:48→20:05)
[2024-01-22] MEDS: Pyridoxine HCl (Vitamin B6) 50 MG TABLET 100 MG PO (09:55)
[2024-01-22] MEDS: NIFEdipine ER 30 MG TAB.ER.24 PO (09:55)
[2024-01-22] MEDS: Loratadine 10 MG TABLET PO (09:55)
[2024-01-22] MEDS: Metoprolol Tartrate 25 MG TABLET PO ×2 (09:56→20:05)
[2024-01-22] MEDS: Aspirin Enteric Coated 81 MG TABLET.DR PO (09:56)
[2024-01-22] MEDS: Ascorbic Acid 500 MG TABLET PO (09:56)
[2024-01-22] MEDS: Vitamin E (Dl,Tocopheryl Acet) 180 MG (400 UNIT) CAPSULE PO (09:56)
[2024-01-22] MEDS: Cyanocobalamin (Vitamin B-12) 1,000 MCG TABLET 1000 MCG PO (09:56)
[2024-01-22] MEDS: Cholecalciferol (Vitamin D3) 25 MCG TABLET PO (09:56)
[2024-01-22] MEDS: Ferrous Sulfate 324 MG TABLET.DR PO (09:57)
[2024-01-22] MEDS: Lidocaine 4 % Patch ADH..PATCH 1 PATCH TRANSDERMA (09:57)
[2024-01-22] MEDS: oxyCODONE HCl Immed Release 5 MG TABLET PO (11:19)
[2024-01-22] MEDS: levoFLOXacin/D5W 750 MG/150 ML PIGGYBACK 100 MG IV (13:24)
--- NOTE | 2024-01-22 14:23 | MHC.CM.PN ---
EMR REVIEWED, PT W/VOMITING OVERNIGHT WAS PLACED ON LIQUID DIET, DIET ADVANCED THIS AFTERNOON AND PT MAY BE MEDICALLY CLEARED OVER W/E IF TOLERATING, CM WILL CONT TO FOLLWO DC NEEDS.
--- NOTE | 2024-01-22 14:50 | P.PNIM_ITS ---
Subjective Subjective Date of Service: 01/22/24 Interval History: colitis ,cholecytitis Review of Systems diarrhae improving,no fever abd discomfort somewhat on palpation Physical Exam 2 Vital Signs: Vital Signs: Last Vital Signs Temp 97.9 F 01/22/24 07:08 Pulse 74 01/22/24 09:56 Resp 17 01/22/24 07:08 BP 130/72 01/22/24 09:56 Pulse Ox 96 01/22/24 07:08 O2 Del Method Room Air 01/22/24 07:08 BMI result Body Mass Index 30.9 General: AO X 3, no acute distress Resp: CTA bilateral CVS: S1,S2,RRR GI: +BS, no tenderness, no distention Skin: No rash Neuro: motor grossly intact Psych: appropriate affect . Objective Data Active Medications Acetaminophen (Acetaminophen 325 Mg Tablet) 975 mg PO Q6H PRN PRN Reason: Pain, Severe (Pain Scale 7-10) Last Admin: 01/21/24 20:13 Dose: 975 mg Documented By: HODA Albuterol Sulfate (Albuterol Sulfate 90 Mcg 8 Gm Inhaler) 2 puff INHALE RQ6H PRN PRN Reason: Bronchodilation Amitriptyline HCl (Amitriptyline Hcl 10 Mg Tablet) 10 mg PO BEDTIME [facility] Last Admin: 01/21/24 20:10 Dose: 10 mg Documented By: HODA Ascorbic Acid (Ascorbic Acid 500 Mg Tablet) 500 mg PO DAILY [facility] Last Admin: 01/22/24 09:56 Dose: 500 mg Documented By: MAYTE Aspirin (Aspirin Enteric Coated 81 Mg Tablet.) 81 mg PO DAILY [facility] Last Admin: 01/22/24 09:56 Dose: 81 mg Documented By: MAYTE Atorvastatin Calcium (Atorvastatin Calcium 80 Mg Tablet) 80 mg PO BEDTIME [facility] Last Admin: 01/21/24 20:10 Dose: 80 mg Documented By: HODA Benzonatate (Benzonatate 100 Mg Capsule) 100 mg PO TID PRN PRN Reason: Cough Cyanocobalamin (Cyanocobalamin (Vitamin B-12) 1,000 Mcg Tablet) 1,000 mcg PO DAILY [facility] Last Admin: 01/22/24 09:56 Dose: 1,000 mcg Documented By: MAYTE Diphenhydramine HCl (Diphenhydramine Hcl 25 Mg Capsule) 25 mg PO DAILY PRN PRN Reason: Itching Ferrous Sulfate (Ferrous Sulfate 324 Mg Tablet.) 324 mg PO DAILY [facility] Last Admin: 01/22/24 09:57 Dose: 324 mg Documented By: MAYTE Fluticasone Propionate (Fluticasone Propionate 250 Mcg Blst.W.Dev) 2 puff INHALE RBID [facility] Last Admin: 01/22/24 08:03 Dose: Not Given Documented By: NEYDA Non-Admin Reason: Patient Refused Metronidazole (Flagyl) 500 mg in 100 mls @ 100 mls/hr IV Q8H [facility] Last Infusion: 01/22/24 06:40 Dose: Infused Documented By: HODA Levofloxacin (Levaquin) 750 mg in 150 mls @ 100 mls/hr IV Q24H [facility] Last Admin: 01/22/24 13:24 Dose: 100 mls/hr Documented By: MAYTE Lidocaine (Lidocaine 4 % Patch Adh..Patch) 1 patch TRANSDERMA DAILY [facility]; Protocol Last Admin: 01/22/24 09:57 Dose: 1 patch Documented By: MAYTE Loratadine (Loratadine 10 Mg Tablet) 10 mg PO DAILY [facility] Last Admin: 01/22/24 09:55 Dose: 10 mg Documented By: MAYTE Melatonin (Melatonin 3 Mg Tablet) 6 mg PO BEDTIME PRN PRN Reason: Insomnia Last Admin: 01/21/24 20:10 Dose: 6 mg Documented By: HODA Comments: for insomnia Metoprolol Tartrate (Metoprolol Tartrate 25 Mg Tablet) 25 mg PO BID [facility]; Protocol Last Admin: 01/22/24 09:56 Dose: 25 mg Documented By: MAYTE Multi-Ingred Cream/Lotion/Oil/Oint (Mineral Oil/Petrolatum,White 106 Gm Tube) 1 appl TOPICAL 5XD PRN PRN Reason: SEBORRHEIC KERATOSES Nifedipine (Nifedipine Er 30 Mg Tab.Er.24) 30 mg PO DAILY [facility] Last Admin: 01/22/24 09:55 Dose: 30 mg Documented By: MAYTE Omeprazole (Omeprazole 20 Mg Capsule.) 20 mg PO DAILY@0630 [facility] Last Admin: 01/22/24 05:42 Dose: Not Given Documented By: HO.CASTILM Non-Admin Reason: NPO Ondansetron HCl (Ondansetron Hcl 4 Mg/2 Ml Vial) 4 mg IVPUSH Q8H PRN PRN Reason: Nausea and Vomiting Last Admin: 01/21/24 21:54 Dose: 4 mg Documented By: CASTCAMRON Oxycodone HCl (Oxycodone Hcl Immed Release 5 Mg Tablet) 5 mg PO DAILY PRN PRN Reason: Pain (Scale Score 4-6) Last Admin: 01/22/24 11:19 Dose: 5 mg Documented By: MAYTE Prochlorperazine Edisylate (Prochlorperazine Edisylate 10 Mg/2 Ml Vial) 5 mg IVPUSH Q4H PRN PRN Reason: Nausea and Vomiting Pyridoxine HCl (Pyridoxine Hcl (Vitamin B6) 50 Mg Tablet) 100 mg PO DAILY [facility] Last Admin: 01/22/24 09:55 Dose: 100 mg Documented By: MAYTE Sodium Chloride (0.9 % Sodium Chloride Flush 3 Ml Syringe) 3 ml IVFLUSH QSHIFT [facility] Last Admin: 01/22/24 09:48 Dose: 3 ml Documented By: MAYTE Vitamin D (Cholecalciferol (Vitamin D3) 25 Mcg Tablet) 25 mcg PO DAILY [facility] Last Admin: 01/22/24 09:56 Dose: 25 mcg Documented By: MAYTE Vitamin E (Vitamin E (Dl,Tocopheryl Acet) 180 Mg (400 Unit) Capsule) 180 mg PO DAILY [facility] Last Admin: 01/22/24 09:56 Dose: 180 mg Documented By: MAYTE Labs 01/22/24 00:24 01/22/24 00:22 Labs: Laboratory Results - last 24 hr 01/22/24 01/22/24 01/22/24 00:22 00:24 00:26 MCV 93.4 MCH 32.8 MCHC 35.2 H RDW 13.4 Plt Count 234 MPV 9.7 Immature Gran % (Auto) 0.4 Neut % (Auto) 57.2 Lymph % (Auto) 30.0 [place] % (Auto) 9.8 Eos % (Auto) 2.2 Baso % (Auto) 0.4 Lymph # (Auto) 2.1 [place] # (Auto) 0.7 Eos # (Auto) 0.2 Baso # (Auto) 0.0 Abs Immat Gran (auto) 0.03 Absolute Neuts (auto) 4.0 Absolute Nucleated RBC 0.000 Nucleated RBC % (auto) 0.0 ESR 53 H Anion Gap 12 Estim Creat Clear Calc 44.7 Estimated GFR 56 Random Glucose 134 H Lactic Acid 1.0 Calcium 9.2 D Total Bilirubin 0.2 AST 42 H ALT 25 Alkaline Phosphatase 64 C-Reactive Protein 2.98 H C-React Prot High Sens Cancelled Total Protein 5.9 L Albumin 3.1 L Lipase 32 Hold Yellow Top See Note Urine Color Urine Appearance Urine pH Ur Specific [place] Urine Protein Urine Glucose (UA) Urine Ketones Urine Blood Urine Nitrite Ur Leukocyte Esterase Urine RBC Urine WBC Ur Squamous Epith Cells Urine Bacteria Hyaline Casts 01/22/24 02:15 MCV MCH MCHC RDW Plt Count MPV Immature Gran % (Auto) Neut % (Auto) Lymph % (Auto) [place] % (Auto) Eos % (Auto) Baso % (Auto) Lymph # (Auto) [place] # (Auto) Eos # (Auto) Baso # (Auto) Abs Immat Gran (auto) Absolute Neuts (auto) Absolute Nucleated RBC Nucleated RBC % (auto) ESR Anion Gap Estim Creat Clear Calc Estimated GFR Random Glucose Lactic Acid Calcium Total Bilirubin AST ALT Alkaline Phosphatase C-Reactive Protein C-React Prot High Sens Total Protein Albumin Lipase Hold Yellow Top Urine Color Yellow Urine Appearance Clear Urine pH 6.0 Ur Specific [place] 1.010 Urine Protein Negative Urine Glucose (UA) Negative Urine Ketones Negative Urine Blood Negative Urine Nitrite Negative Ur Leukocyte Esterase Trace H Urine RBC 0-2 Urine WBC 0-5 Ur Squamous Epith Cells 3-5 Urine Bacteria None Seen Hyaline Casts 0-2 Assessment and Plan (1) Colitis: Status: Acute (2) Cholecystitis: Status: Acute Assessment and Plan: 88-year-old female with a PMH significant for?HFpEF, aortic valve replacement s/p TAVR, mild dementia, hx of breast cancer, CAD, osteoporosis, asthma, lifelong anemia, and macular degeneration who presents to the ED from assisted living with?3 days of abdominal pain and cramping w/u has revealed pancolitis Pancolitis--infectious vs imflamatory, improving continue IV levaquin + Flagyl started 01/15 C dif negative, linda studies abd us noted from yesterday-? cholecytsitis . Patient is a very suboptimal operative candidate, surgery followup for IR gallbladder drainage for today seen by Gen Surg--possible ir drainge and GI--declined colonoscopy liquid diet and advance as tolerated Acute on chronic anemia--d/t colitis, check iron studies-normal,possible aocd. CAD Continue aspirin, statin HTN, continue metoprolol, nifedipine Asthma Not in acute exacerbation Continue home inhalers Chronic anemia H&H at baseline Continue iron supplementation Follow CBC Full Code DVT Prophylaxis: Pneumatic boots due to anemia and history of GI bleeds requiring transfusion need for inpatient: IV Abx for pancolitis, not able take much by mouth, need for expert eval- need IR gudeded drainage. Quality Stroke Does the patient have a stroke diagnosis?: No VTE Prior VTE?: No VTE Risk Level:: Medical - moderate - high VTE Device Contraindication: N/A - Device Ordered VTE Drug Contraindication: Treatment Not Indicated
[2024-01-22] MEDS: Acetaminophen 325 MG TABLET 975 MG PO (15:25)
[2024-01-22] MEDS: Atorvastatin Calcium 80 MG TABLET PO (20:05)
[2024-01-22] MEDS: Amitriptyline HCl 10 MG TABLET PO (20:05)
[2024-01-22] MEDS: Fluticasone Propionate 250 MCG BLST.W.DEV 2 PUFF INHALE (20:06)
[2024-01-22] MEDS: Melatonin 3 MG TABLET 6 MG PO (23:01)
[2024-01-23] VITALS (8 sets, daily range): BP systolic 129–187; BP diastolic 60–69; PULSE 67–78; RESP 18; TEMP 36–36.3; O2SAT 92–98
[2024-01-23] MEDS: metroNIDAZOLE/NS 500 MG/100 ML PIGGYBACK 100 MG IV ×3 (05:25→21:44)
[2024-01-23] MEDS: Omeprazole 20 MG CAPSULE.DR PO (06:16)
[2024-01-23] MEDS: Fluticasone Propionate 250 MCG BLST.W.DEV 2 PUFF INHALE ×2 (07:48→19:45)
[2024-01-23] MEDS: Acetaminophen 325 MG TABLET 975 MG PO ×3 (07:54→20:11)
[2024-01-23] MEDS: Vitamin E (Dl,Tocopheryl Acet) 180 MG (400 UNIT) CAPSULE PO (07:54)
[2024-01-23] MEDS: Pyridoxine HCl (Vitamin B6) 50 MG TABLET 100 MG PO (07:54)
[2024-01-23] MEDS: Loratadine 10 MG TABLET PO (07:55)
[2024-01-23] MEDS: NIFEdipine ER 30 MG TAB.ER.24 PO (07:55)
[2024-01-23] MEDS: Ascorbic Acid 500 MG TABLET PO (07:55)
[2024-01-23] MEDS: Aspirin Enteric Coated 81 MG TABLET.DR PO (07:55)
[2024-01-23] MEDS: Lidocaine 4 % Patch ADH..PATCH 1 PATCH TRANSDERMA ×2 (07:55→17:56)
[2024-01-23] MEDS: Ferrous Sulfate 324 MG TABLET.DR PO (07:55)
[2024-01-23] MEDS: Cyanocobalamin (Vitamin B-12) 1,000 MCG TABLET 1000 MCG PO (07:55)
[2024-01-23] MEDS: Cholecalciferol (Vitamin D3) 25 MCG TABLET PO (07:55)
[2024-01-23] MEDS: Metoprolol Tartrate 25 MG TABLET PO ×2 (07:55→20:12)
[2024-01-23] MEDS: 0.9 % Sodium Chloride Flush 3 ML SYRINGE IVFLUSH ×3 (07:56→20:13)
--- NOTE | 2024-01-23 10:47 | HO.PM.IMPN ---
Subjective Subjective Date of Service: 01/23/24 Interval History: colitis ,cholecytitis Review of Systems diarrhae improved has mercy drain Physical Exam Vital Signs: Vital Signs: Last Vital Signs Temp 96.8 F 01/23/24 07:09 Pulse 71 01/23/24 07:52 Resp 18 01/23/24 07:52 BP 129/68 01/23/24 07:09 Pulse Ox 97 01/23/24 07:09 O2 Del Method Room Air 01/23/24 07:09 BMI result Body Mass Index 30.9 General: AO X 3, no acute distress Resp: CTA bilateral CVS: S1,S2,RRR GI: +BS, no tenderness, no distention Skin: No rash Neuro: motor grossly intact Psych: appropriate affect . Objective Data Active Medications Acetaminophen (Acetaminophen 325 Mg Tablet) 975 mg PO Q6H PRN PRN Reason: Pain, Severe (Pain Scale 7-10) Last Admin: 01/23/24 07:54 Dose: 975 mg Documented By: ESHA Albuterol Sulfate (Albuterol Sulfate 90 Mcg 8 Gm Inhaler) 2 puff INHALE RQ6H PRN PRN Reason: Bronchodilation Amitriptyline HCl (Amitriptyline Hcl 10 Mg Tablet) 10 mg PO BEDTIME [facility] Last Admin: 01/22/24 20:05 Dose: 10 mg Documented By: HODA Ascorbic Acid (Ascorbic Acid 500 Mg Tablet) 500 mg PO DAILY [facility] Last Admin: 01/23/24 07:55 Dose: 500 mg Documented By: ESHA Aspirin (Aspirin Enteric Coated 81 Mg Tablet.) 81 mg PO DAILY [facility] Last Admin: 01/23/24 07:55 Dose: 81 mg Documented By: ESHA Atorvastatin Calcium (Atorvastatin Calcium 80 Mg Tablet) 80 mg PO BEDTIME [facility] Last Admin: 01/22/24 20:05 Dose: 80 mg Documented By: GABYILGeorges Benzonatate (Benzonatate 100 Mg Capsule) 100 mg PO TID PRN PRN Reason: Cough Cyanocobalamin (Cyanocobalamin (Vitamin B-12) 1,000 Mcg Tablet) 1,000 mcg PO DAILY [facility] Last Admin: 01/23/24 07:55 Dose: 1,000 mcg Documented By: ESHA Diphenhydramine HCl (Diphenhydramine Hcl 25 Mg Capsule) 25 mg PO DAILY PRN PRN Reason: Itching Ferrous Sulfate (Ferrous Sulfate 324 Mg Tablet.) 324 mg PO DAILY [facility] Last Admin: 01/23/24 07:55 Dose: 324 mg Documented By: ESHA Fluticasone Propionate (Fluticasone Propionate 250 Mcg Blst.W.Dev) 2 puff INHALE RBID [facility] Last Admin: 01/23/24 07:48 Dose: 2 puff Documented By: CLEO Metronidazole (Flagyl) 500 mg in 100 mls @ 100 mls/hr IV Q8H [facility] Last Infusion: 01/23/24 06:32 Dose: Infused Documented By: HODA Levofloxacin (Levaquin) 750 mg in 150 mls @ 100 mls/hr IV Q24H [facility] Last Infusion: 01/22/24 15:44 Dose: Infused Documented By: MAYTE Lidocaine (Lidocaine 4 % Patch Adh..Patch) 1 patch TRANSDERMA DAILY [facility]; Protocol Last Admin: 01/23/24 07:55 Dose: 1 patch Documented By: ESHA Loratadine (Loratadine 10 Mg Tablet) 10 mg PO DAILY [facility] Last Admin: 01/23/24 07:55 Dose: 10 mg Documented By: ESHA Melatonin (Melatonin 3 Mg Tablet) 6 mg PO BEDTIME PRN PRN Reason: Insomnia Last Admin: 01/22/24 23:01 Dose: 6 mg Documented By: HODA Metoprolol Tartrate (Metoprolol Tartrate 25 Mg Tablet) 25 mg PO BID [facility]; Protocol Last Admin: 01/23/24 07:55 Dose: 25 mg Documented By: ESHA Multi-Ingred Cream/Lotion/Oil/Oint (Mineral Oil/Petrolatum,White 106 Gm Tube) 1 appl TOPICAL 5XD PRN PRN Reason: SEBORRHEIC KERATOSES Nifedipine (Nifedipine Er 30 Mg Tab.Er.24) 30 mg PO DAILY [facility] Last Admin: 01/23/24 07:55 Dose: 30 mg Documented By: ESHA Omeprazole (Omeprazole 20 Mg Capsule.) 20 mg PO DAILY@0630 [facility] Last Admin: 01/23/24 06:16 Dose: 20 mg Documented By: HODA Ondansetron HCl (Ondansetron Hcl 4 Mg/2 Ml Vial) 4 mg IVPUSH Q8H PRN PRN Reason: Nausea and Vomiting Last Admin: 01/21/24 21:54 Dose: 4 mg Documented By: HODA Oxycodone HCl (Oxycodone Hcl Immed Release 5 Mg Tablet) 5 mg PO DAILY PRN PRN Reason: Pain (Scale Score 4-6) Last Admin: 01/22/24 11:19 Dose: 5 mg Documented By: MAYTE Prochlorperazine Edisylate (Prochlorperazine Edisylate 10 Mg/2 Ml Vial) 5 mg IVPUSH Q4H PRN PRN Reason: Nausea and Vomiting Pyridoxine HCl (Pyridoxine Hcl (Vitamin B6) 50 Mg Tablet) 100 mg PO DAILY [facility] Last Admin: 01/23/24 07:54 Dose: 100 mg Documented By: ESHA Sodium Chloride (0.9 % Sodium Chloride Flush 3 Ml Syringe) 3 ml IVFLUSH QSHIFT [facility] Last Admin: 01/23/24 07:56 Dose: 3 ml Documented By: ESHA Vitamin D (Cholecalciferol (Vitamin D3) 25 Mcg Tablet) 25 mcg PO DAILY [facility] Last Admin: 01/23/24 07:55 Dose: 25 mcg Documented By: ESHA Vitamin E (Vitamin E (Dl,Tocopheryl Acet) 180 Mg (400 Unit) Capsule) 180 mg PO DAILY [facility] Last Admin: 01/23/24 07:54 Dose: 180 mg Documented By: ESHA Labs 01/22/24 00:24 01/22/24 00:22 Microbiology Microbiology Results: Microbiology 01/22/24 00:22 Blood Culture - Preliminary Blood - Venous No growth after 24 hours. 01/22/24 00:21 Blood Culture - Preliminary Blood - Venous No growth after 24 hours. Assessment and Plan (1) Colitis: Status: Acute (2) Cholecystitis: Status: Acute Assessment and Plan: 88-year-old female with a PMH significant for?HFpEF, aortic valve replacement s/p TAVR, mild dementia, hx of breast cancer, CAD, osteoporosis, asthma, lifelong anemia, and macular degeneration who presents to the ED from assisted living with?3 days of abdominal pain and cramping w/u has revealed pancolitis Pancolitis--infectious vs imflamatory, improving continue IV levaquin + Flagyl started 01/15 C dif negative, stool studies abd us noted from yesterday-? cholecytsitis . Patient is a very suboptimal operative candidate, surgery followup for IR gallbladder drainage for today seen by Gen Surg--possible IR drainge and GI--declined colonoscopy liquid diet and advance as tolerated Acute on chronic anemia--d/t colitis, check iron studies-normal,possible aocd. CAD Continue aspirin, statin. HTN, continue metoprolol, nifedipine. Asthma Not in acute exacerbation Continue home inhalers Chronic anemia H&H at baseline Continue iron supplementation Follow CBC Full Code DVT Prophylaxis: Pneumatic boots due to anemia and history of GI bleeds requiring transfusion need for inpatient: IV Abx for pancolitis, not able take much by mouth, need for expert eval. Quality Stroke Does the patient have a stroke diagnosis?: No VTE Prior VTE?: No VTE Risk Level:: Medical - moderate - high VTE Device Contraindication: N/A - Device Ordered VTE Drug Contraindication: Treatment Not Indicated
[2024-01-23] MEDS: levoFLOXacin/D5W 750 MG/150 ML PIGGYBACK 100 MG IV (13:04)
[2024-01-23] MEDS: Amitriptyline HCl 10 MG TABLET PO (20:12)
[2024-01-23] MEDS: Atorvastatin Calcium 80 MG TABLET PO (20:12)
[2024-01-23] MEDS: Melatonin 3 MG TABLET 6 MG PO (22:52)
[2024-01-24] VITALS (7 sets, daily range): BP systolic 117–151; BP diastolic 58–68; PULSE 64–78; RESP 16–20; TEMP 36.1–36.4; O2SAT 95–98
[2024-01-24] MEDS: Acetaminophen 325 MG TABLET 975 MG PO ×4 (04:32→21:12)
[2024-01-24] MEDS: Omeprazole 20 MG CAPSULE.DR PO (05:46)
[2024-01-24] MEDS: metroNIDAZOLE/NS 500 MG/100 ML PIGGYBACK 100 MG IV (05:46)
[2024-01-24] MEDS: Fluticasone Propionate 250 MCG BLST.W.DEV 2 PUFF INHALE ×2 (08:00→20:05)
[2024-01-24] MEDS: Ascorbic Acid 500 MG TABLET PO (08:06)
[2024-01-24] MEDS: NIFEdipine ER 30 MG TAB.ER.24 PO (08:06)
[2024-01-24] MEDS: Pyridoxine HCl (Vitamin B6) 50 MG TABLET 100 MG PO (08:06)
[2024-01-24] MEDS: Loratadine 10 MG TABLET PO (08:06)
[2024-01-24] MEDS: Ferrous Sulfate 324 MG TABLET.DR PO (08:06)
[2024-01-24] MEDS: Aspirin Enteric Coated 81 MG TABLET.DR PO (08:07)
[2024-01-24] MEDS: Cyanocobalamin (Vitamin B-12) 1,000 MCG TABLET 1000 MCG PO (08:07)
[2024-01-24] MEDS: Metoprolol Tartrate 25 MG TABLET PO ×2 (08:07→21:11)
[2024-01-24] MEDS: Lidocaine 4 % Patch ADH..PATCH 1 PATCH TRANSDERMA ×2 (08:07)
[2024-01-24] MEDS: Cholecalciferol (Vitamin D3) 25 MCG TABLET PO (08:07)
[2024-01-24] MEDS: Vitamin E (Dl,Tocopheryl Acet) 180 MG (400 UNIT) CAPSULE PO (08:07)
[2024-01-24] MEDS: 0.9 % Sodium Chloride Flush 3 ML SYRINGE IVFLUSH ×3 (08:08→21:12)
[2024-01-24] MEDS: Prochlorperazine Edisylate 10 MG/2 ML VIAL 5 MG IVPUSH (11:07)
--- NOTE | 2024-01-24 11:11 | PC.NURSE ---
Pt c/o nausea without vomiting, MD Abreu made aware, PRN Compazine given per orders, pending effectiveness. 75ML green clear liquid drained from Dalila bag. Pt has +BS all 4 quads, abd soft/obease, denying pain with palpation.
[2024-01-24] MEDS: Simethicone 80 MG TAB.CHEW PO (11:34)
[2024-01-24] MEDS: Docusate Sodium 100 MG CAPSULE PO ×2 (11:34→21:11)
--- NOTE | 2024-01-24 13:34 | PC.NURSE ---
Pt able to get OOB to chair with 1A and walker. Pt sat up in chair for lunch and breakfast but got back to bed in between meals. Pt states she does not feel well today and would like to get in bed at this time. Exercise and ambulation encouraged but pt refuses. Education provided to pt regarding importance of exercise to keep up strength to return back to [facility]. MD aware PT re-evaluation ordered.
--- NOTE | 2024-01-24 13:41 | HO.PM.IMPN ---
Subjective Subjective Date of Service: 01/24/24 Interval History: colitis ,cholecytitis Review of Systems feel nauseated ,diarrhae improved has mercy drain-still darining Physical Exam Vital Signs: Vital Signs: Last Vital Signs Temp 97.0 F 01/24/24 07:27 Pulse 64 01/24/24 08:02 Resp 16 01/24/24 08:02 BP 129/61 01/24/24 07:27 Pulse Ox 97 01/24/24 07:27 O2 Del Method Room Air 01/24/24 07:27 BMI result Body Mass Index 30.9 General: AO X 3, no acute distress Resp: CTA bilateral CVS: S1,S2,RRR GI: +BS, no tenderness, no distention Skin: No rash Neuro: motor grossly intact Psych: appropriate affect . Objective Data Active Medications Acetaminophen (Acetaminophen 325 Mg Tablet) 975 mg PO Q6H PRN PRN Reason: Pain, Severe (Pain Scale 7-10) Last Admin: 01/24/24 04:32 Dose: 975 mg Documented By: HODA Acetaminophen (Acetaminophen 325 Mg Tablet) 975 mg PO TID [facility] Last Admin: 01/24/24 08:06 Dose: 975 mg Documented By: ESHA Albuterol Sulfate (Albuterol Sulfate 90 Mcg 8 Gm Inhaler) 2 puff INHALE RQ6H PRN PRN Reason: Bronchodilation Amitriptyline HCl (Amitriptyline Hcl 10 Mg Tablet) 10 mg PO BEDTIME [facility] Last Admin: 01/23/24 20:12 Dose: 10 mg Documented By: HODA Ascorbic Acid (Ascorbic Acid 500 Mg Tablet) 500 mg PO DAILY [facility] Last Admin: 01/24/24 08:06 Dose: 500 mg Documented By: ESHA Aspirin (Aspirin Enteric Coated 81 Mg Tablet.) 81 mg PO DAILY [facility] Last Admin: 01/24/24 08:07 Dose: 81 mg Documented By: ESHA Atorvastatin Calcium (Atorvastatin Calcium 80 Mg Tablet) 80 mg PO BEDTIME [facility] Last Admin: 01/23/24 20:12 Dose: 80 mg Documented By: HODA Benzonatate (Benzonatate 100 Mg Capsule) 100 mg PO TID PRN PRN Reason: Cough Cyanocobalamin (Cyanocobalamin (Vitamin B-12) 1,000 Mcg Tablet) 1,000 mcg PO DAILY [facility] Last Admin: 01/24/24 08:07 Dose: 1,000 mcg Documented By: ESHA Diphenhydramine HCl (Diphenhydramine Hcl 25 Mg Capsule) 25 mg PO DAILY PRN PRN Reason: Itching Docusate Sodium (Docusate Sodium 100 Mg Capsule) 100 mg PO BID [facility] Last Admin: 01/24/24 11:34 Dose: 100 mg Documented By: ESHA Ferrous Sulfate (Ferrous Sulfate 324 Mg Tablet.) 324 mg PO DAILY [facility] Last Admin: 01/24/24 08:06 Dose: 324 mg Documented By: ESHA Fluticasone Propionate (Fluticasone Propionate 250 Mcg Blst.W.Dev) 2 puff INHALE RBID [facility] Last Admin: 01/24/24 08:00 Dose: 2 puff Documented By: NEYDA Lidocaine (Lidocaine 4 % Patch Adh..Patch) 1 patch TRANSDERMA DAILY [facility]; Protocol Last Admin: 01/24/24 08:07 Dose: 1 patch Documented By: ESHA Lidocaine (Lidocaine 4 % Patch Adh..Patch) 1 patch TRANSDERMA DAILY [facility]; Protocol Last Admin: 01/24/24 08:07 Dose: 1 patch Documented By: ESHA Loratadine (Loratadine 10 Mg Tablet) 10 mg PO DAILY [facility] Last Admin: 01/24/24 08:06 Dose: 10 mg Documented By: ESHA Melatonin (Melatonin 3 Mg Tablet) 6 mg PO BEDTIME PRN PRN Reason: Insomnia Last Admin: 01/23/24 22:52 Dose: 6 mg Documented By: HODA Comments: insomnia Metoprolol Tartrate (Metoprolol Tartrate 25 Mg Tablet) 25 mg PO BID [facility]; Protocol Last Admin: 01/24/24 08:07 Dose: 25 mg Documented By: ESHA Multi-Ingred Cream/Lotion/Oil/Oint (Mineral Oil/Petrolatum,White 106 Gm Tube) 1 appl TOPICAL 5XD PRN PRN Reason: SEBORRHEIC KERATOSES Nifedipine (Nifedipine Er 30 Mg Tab.Er.24) 30 mg PO DAILY [facility] Last Admin: 01/24/24 08:06 Dose: 30 mg Documented By: ESHA Omeprazole (Omeprazole 20 Mg Capsule.) 20 mg PO DAILY@0630 [facility] Last Admin: 01/24/24 05:46 Dose: 20 mg Documented By: HODA Ondansetron HCl (Ondansetron Hcl 4 Mg/2 Ml Vial) 4 mg IVPUSH Q8H PRN PRN Reason: Nausea and Vomiting Last Admin: 01/21/24 21:54 Dose: 4 mg Documented By: HODA Oxycodone HCl (Oxycodone Hcl Immed Release 5 Mg Tablet) 5 mg PO DAILY PRN PRN Reason: Pain (Scale Score 4-6) Last Admin: 01/22/24 11:19 Dose: 5 mg Documented By: MAYTE Polyethylene Glycol (Polyethylene Glycol 3350 17 Gm Powd.Pack) 17 gm PO DAILY [facility] Last Admin: 01/24/24 11:38 Dose: Not Given Documented By: ESHA Non-Admin Reason: pt refused Prochlorperazine Edisylate (Prochlorperazine Edisylate 10 Mg/2 Ml Vial) 5 mg IVPUSH Q4H PRN PRN Reason: Nausea and Vomiting Last Admin: 01/24/24 11:07 Dose: 5 mg Documented By: ESHA Pyridoxine HCl (Pyridoxine Hcl (Vitamin B6) 50 Mg Tablet) 100 mg PO DAILY [facility] Last Admin: 01/24/24 08:06 Dose: 100 mg Documented By: ESHA Sodium Chloride (0.9 % Sodium Chloride Flush 3 Ml Syringe) [facility] Last Admin: 01/24/24 08:08 Dose: 3 ml Documented By: ESHA Vitamin D (Cholecalciferol (Vitamin D3) 25 Mcg Tablet) 25 mcg PO DAILY [facility] Last Admin: 01/24/24 08:07 Dose: 25 mcg Documented By: ESHA Vitamin E (Vitamin E (Dl,Tocopheryl Acet) 180 Mg (400 Unit) Capsule) 180 mg PO DAILY [facility] Last Admin: 01/24/24 08:07 Dose: 180 mg Documented By: ESHA Labs 01/22/24 00:24 01/22/24 00:22 Microbiology Microbiology Results: Microbiology 01/22/24 00:22 Blood Culture - Preliminary Blood - Venous No growth after 48 hours. 01/22/24 00:21 Blood Culture - Preliminary Blood - Venous No growth after 48 hours. Assessment and Plan (1) Weakness: Status: Acute (2) Cholecystitis: Status: Acute Plan 88-year-old female with a PMH significant for?HFpEF, aortic valve replacement s/p TAVR, mild dementia, hx of breast cancer, CAD, osteoporosis, asthma, lifelong anemia, and macular degeneration who presents to the ED from assisted living with?3 days of abdominal pain and cramping w/u has revealed pancolitis Pancolitis--infectious vs imflamatory, improving continue IV levaquin + Flagyl started 01/15 C dif negative, stool studies abd us noted from yesterday-possible acute cholecytsitis . Patient is a very suboptimal operative candidate, surgery followup for IR gallbladder drainage for today seen by Gen Surg--possible IR drainge and GI--declined colonoscopy compeleted antibiotics continue antiemtics .also added luxative for bowel regimen for constipation.po intake still low but slightly improving Acute on chronic anemia--d/t colitis, check iron studies-normal,possible aocd. CAD Continue aspirin, statin. HTN, continue metoprolol, nifedipine. Asthma Not in acute exacerbation Continue home inhalers Chronic anemia H&H at baseline Continue iron supplementation Follow CBC foot pain- has possible Arthritis at the IP joints of the great toe continue tylenol,lidoacine patch. Generalised weak -PT initially recommended to go back to the [facility]-but need excessive help with transfers -we will add Pt reeval to decide dispo. Full Code DVT Prophylaxis: Pneumatic boots due to anemia and history of GI bleeds requiring transfusion need for inpatient: IV Abx for pancolitis, not able take much by mouth, need for expert eval.Pt reeval for dispo Quality Stroke Does the patient have a stroke diagnosis?: No VTE Prior VTE?: No VTE Risk Level:: Medical - moderate - high VTE Device Contraindication: N/A - Device Ordered VTE Drug Contraindication: Treatment Not Indicated
[2024-01-24] MEDS: Amitriptyline HCl 10 MG TABLET PO (21:11)
[2024-01-24] MEDS: Atorvastatin Calcium 80 MG TABLET PO (21:11)
[2024-01-25 03:41] VITALS: BP 120/62; PULSE 70; RESP 18; TEMP 36.7; O2SAT 97
[2024-01-25] MEDS: Omeprazole 20 MG CAPSULE.DR PO (06:16)
[2024-01-25 07:02] VITALS: BP 117/63; PULSE 75; RESP 19; TEMP 36.4; O2SAT 97
[2024-01-25] MEDS: Fluticasone Propionate 250 MCG BLST.W.DEV 2 PUFF INHALE (08:05)
[2024-01-25 08:08] VITALS: PULSE 86; RESP 16; O2SAT 96
[2024-01-25] MEDS: Ascorbic Acid 500 MG TABLET PO (08:37)
[2024-01-25] MEDS: 0.9 % Sodium Chloride Flush 3 ML SYRINGE IVFLUSH (08:37)
[2024-01-25] MEDS: Docusate Sodium 100 MG CAPSULE PO (08:37)
[2024-01-25 08:38] VITALS: BP 117/63; PULSE 86
[2024-01-25] MEDS: Loratadine 10 MG TABLET PO (08:38)
[2024-01-25] MEDS: NIFEdipine ER 30 MG TAB.ER.24 PO (08:38)
[2024-01-25] MEDS: Vitamin E (Dl,Tocopheryl Acet) 180 MG (400 UNIT) CAPSULE PO (08:38)
[2024-01-25] MEDS: Metoprolol Tartrate 25 MG TABLET PO (08:38)
[2024-01-25] MEDS: Acetaminophen 325 MG TABLET 975 MG PO ×2 (08:38→14:38)
[2024-01-25] MEDS: Pyridoxine HCl (Vitamin B6) 50 MG TABLET 100 MG PO (08:38)
[2024-01-25] MEDS: Cholecalciferol (Vitamin D3) 25 MCG TABLET PO (08:38)
[2024-01-25] MEDS: Aspirin Enteric Coated 81 MG TABLET.DR PO (08:38)
[2024-01-25] MEDS: polyethylene glycoL 3350 17 GM POWD.PACK PO (08:39)
[2024-01-25] MEDS: Cyanocobalamin (Vitamin B-12) 1,000 MCG TABLET 1000 MCG PO (08:39)
[2024-01-25] MEDS: Lidocaine 4 % Patch ADH..PATCH 1 PATCH TRANSDERMA ×2 (08:39)
[2024-01-25] MEDS: Ferrous Sulfate 324 MG TABLET.DR PO (08:39)
[2024-01-25] MEDS: oxyCODONE HCl Immed Release 5 MG TABLET PO (11:08)
--- NOTE | 2024-01-25 12:34 | MHC.CM.PN ---
Per MD rounds patient medically cleared for dc back to [facility] with SN/PT services through [facility] (per daughter's request). [facility] scheduled for 01/28. MD aware. Daughter prefers to wait for [facility] and does not wish to schedule with another agency. Daughter will manage juan manuel tube until [facility] is available and will receive teach from RN. Daughter will provide transport back to [facility] at 2pm. RN and aware. Informed staff at [facility] and for nurse to inform as well.
--- NOTE | 2024-01-25 13:42 | P.DS_ITS ---
DS: Providers Provider Date of Service: 01/25/24 Date of admission: 01/16/24 11:59 Date of discharge: 01/25/24 Primary care physician: Michael Shepard MD Consults: 01/16/24 19:06 Consult to Gastroenterology Routine Consulting Provider: Izaiah Hidalgo Reason for consultation: Abd pain, CT with pancolitis & proctitis Consult to General Surgery Routine Consulting Provider: [facility] [place] General Surgeons Reason for consultation: Pt with abd pain, distended GB Attending physician on discharge: Dory Abreu Discharging clinician: Dory Abreu DS: Diagnosis Discharge Diagnosis (1) Weakness: Status: Acute (2) Cholecystitis: Status: Acute DS: Summary Hospital Course Hospital Course: 88-year-old female with a PMH significant for?HFpEF, aortic valve replacement s/p TAVR, mild dementia, hx of breast cancer, CAD, osteoporosis, asthma, lifelong anemia, and macular degeneration who presents to the ED from assisted living with?3 days of abdominal pain and cramping. Patient states symptoms began on when she had sudden onset lower abdominal pain and cramping with need to evacuate bowels. Symptoms largely resolved after bowel movement, which was largely normal in consistency. No hematochezia. Patient with chronically dark colored stools from iron supplementation. Later that night symptoms returned, and then again on Thursday morning that was associated with some nausea but no vomiting. Last night/early this morning bowel movements turned loose with liquid consistency. Again experienced nausea but no vomiting. Rates abdominal pain an 8/10 at its worst a minor 2/10 during remission. Has been associated with anorexia and reduced p.o. intake. At the urging of family, patient then presented to the ED for further evaluation. Denies fever, chills. No chest pain/pressure, palpitations. Also denies UTI symptoms: No polyuria or dysuria. Of note, patient was admitted to the hospital in 08/12/2023 for similar symptoms and was treated for UTI and transfused 1 unit PRBCs. Stool was positive for occult blood, but patient declined inpatient GI evaluation at that time. In the ED pt was slightly hypertensive up to 154/61, vitals otherwise WNL. Labs were significant for sodium 130, AST 58, ALT 61, initial troponin 17.1 with repeat flat at 21.9, C-reactive protein 4.13. Stable normocytic anemia of 9.4/27.1. UA likely negative for UTI. Tested negative for COVID, RSV, flu. CT?of abdomen and pelvis found circumferential wall thickening of the entire colon without pericolonic fat stranding, but suggestive possible colitis. Also found fullness of soft tissue surrounding and erectile junction concerning for possible proctitis, though can not rule out possibility of underlying anal rectal lesion. Additionally, found marked distention of gallbladder with gallstones, and redemonstration of pancreatic cyst structure in body/tail, unchanged from previous. EKG demonstrated normal sinus rhythm without evidence of significant ST elevations or depressions. Pt was treated with IVF and ondansetron. Pt will be admitted to the hospital for for treatment further evaluation of lower abdominal pain in the setting of likely pancolitis. Hospital course: Patient came to the hospital because of abdominal pain cramping found to have pancolitis on CT abdomen,also has abd sono-possible acute cholecytsitis : Patient stool studies sent, also started on IV antibiotics, blood cultures sent, seen by GI and surgery: Patient declined colonoscopy,very suboptimal operative candidate, surgery -so status post IR gallbladder drainage. Stool C diff negative, gastrointestinal panel also negative. Patient has cholecystostomy tube, also completed IV antibiotics. Blood culture negative. No fever or leukocytosis. Patient will be going home with cholecystostomy tube, see instructions above. Normocytic anemia: Iron studies normal, occult blood positive, patient declined colonoscopy as above. Further management outpatient, monitor CBC and consider outpatient colonoscopy once agreeable. CT abdomen and incidental finding also: Has possible proctitis, patient already completed antibiotic, passing bowels, no pain, rectal exam does not reveal any grossly any mass or possible mild external hemorrhoids. Patient declined colonoscopy as above. CT abdomen also incidental finding:Redemonstration of pancreatic cystic structure body/tail of thepancreas unchanged, continued surveillance recommended, consider follow-up MRI MRCP in 6 months outpatient. Foot pain seems to be improved with Tylenol. X-ray shows possible arthritis. Further management outpatient. discussed with the surgery patient completed antibiotics, outpatient follow-up with surgery. Patient will be going home with services. plan: Follow-up with GI and surgery for above CT abdomen findings. Also patient is to follow-up with surgery because has cholecystostomy tube. Monitor CBC-further anemia workup outpatient, of note patient is already on p.o. iron, iron studies seems fine-patient currently declines colonoscopy. Patient is to follow up outpatient with PCP, surgery, GI. Above management discussed with the patient and her daughter in detail length both understand and in agreement with the plan, time spent 40 minute. Time Attestation Total time managing care of this patient today: 40 mintues. Discharge Coordination Time (in mins): 40 min Quality: Safe Use of Opioids Does Pt have an Active Cancer Diagnosis on the Problem List?: No Quality: Stroke Does the patient have a stroke diagnosis?: No Physical Exam Vital Signs: Vital Signs: Last Vital Signs Temp 97.6 F 01/25/24 07:02 Pulse 86 01/25/24 08:38 Resp 16 01/25/24 08:08 BP 117/63 01/25/24 08:38 Pulse Ox 97 01/25/24 07:02 O2 Del Method Room Air 01/25/24 07:02 BMI result Body Mass Index 30.9 General: AO X 3, no acute distress Resp: CTA bilateral CVS: S1,S2,RRR GI: +BS, no tenderness, no distention Skin: No rash Neuro: motor grossly intact Psych: appropriate affect . DS: Data Data Completed and Pending Completed studies during hospitalization [Text1]: Procedures Assistance with Respiratory Ventilation, Less than 24 Consecutive Hours, Continuous Positive Airway Pressure (11/22/20) Transfusion of Nonautologous Red Blood Cells into Peripheral Vein, Percutaneous Approach (08/08/23) Labs on day of discharge: Preliminary micro results at discharge 01/22/24 00:22 Blood Culture - Preliminary Blood - Venous No growth after 48 hours. 01/22/24 00:21 Blood Culture - Preliminary Blood - Venous No growth after 48 hours. Imaging Chest x-ray: Radiologist's impression: ITS Impressions Abdomen/Pelvis CT 01/16/24 06:57 IMPRESSION: 1. There is circumferential wall thickening of the entire colon, nonspecific CT finding and can be due to nondistention, also seen in patients with colitis,. There is however No pericolic fat stranding,. Evaluation is limited due to lack of contrast. Please correlate clinically. 2. There is fullness of soft tissues surrounding the anorectal junction with stranding involving the right perirectal fat, concerning for possible proctitis. Cannot entirely rule out the possibility of underlying anal rectal lesion, ATTENTION TO CORRELATION WITH FOLLOW-UP RECTAL EXAM. 3. Markedly distended gallbladder and there are gallstones. 4. Redemonstration of pancreatic cystic structure body/tail of the pancreas unchanged, continued surveillance recommended, consider follow-up MRI MRCP in 6 months. 5. Mild interstitial lung disease, peripheral bronchiectasis suggesting interstitial pulmonary fibrosis at lung bases. (Referring physician staff is being called, by physician staff assistance, to be alerted of the above critical findings and recommendations.) 01/16/2024 7:54 AM Abdomen Ultrasound 01/16/24 14:50 IMPRESSION: Suspicion for acute cholecystitis evident by distended gallbladder, gallbladder wall thickening, gallstones, positive Parker sign and mildly dilated common bile duct 9 mm. Surgical evaluation is warranted, HIDA scan could be utilized for further investigation if clinically indicated. (Referring physician staff is being called, by physician staff assistance, to be alerted of the above critical findings and recommendations.) JL 01/18/2024 4:59 PM Foot X-Ray 01/23/24 17:56 IMPRESSION: Arthritis at the IP joints of the great toe and question mild subluxation. Plantar calcaneal spur. Discharge Plan Discharge Anticipated Discharge Date/Time: 01/25/24 12:28 Patient Disposition: Home Health Service Discharge Diagnosis: Colitis, acute cholecystitis status post cholecystostomy tube. Referrals: Philip Keith MD [Physician] - 1 Week Michael Shepard MD [Primary Care Provider] - 1 Week Discharge Medications: Continued fexofenadine 180 mg tablet 180 mg PO BEDTIME ferrous sulfate 325 mg (65 mg iron) tablet 325 mg PO DAILY vitamin E succinate 400 unit tablet 400 unit PO DAILY metoprolol tartrate 25 mg tablet 25 mg PO BID Qty: 180 3RF amitriptyline 10 mg tablet 10 mg PO BEDTIME Qty: 90 1RF fluticasone propionate 220 mcg/actuation HFA aerosol inhaler 2 puff inhalation BID 30 Days Qty: 12 5RF Rx Instructions: administer with spacer atorvastatin 80 mg tablet 80 mg PO BEDTIME Qty: 90 3RF nifedipine 30 mg tablet extended release 30 mg PO DAILY Qty: 90 0RF aspirin 81 mg tablet,delayed release (DR/EC) 81 mg PO DAILY Qty: 90 3RF cyanocobalamin (vitamin B-12) 1,000 mcg Tablet 1,000 mcg PO DAILY pyridoxine (vitamin B6) 100 mg Tablet 100 mg PO DAILY ascorbic acid (vitamin C) [Vitamin C] 500 mg Tablet 500 mg PO DAILY diphenhydramine HCl [Benadryl] 25 mg Capsule 25 mg PO DAILY PRN (Reason: Itching) PreserVision AREDS-2 250-90-40-1 mg Capsule 1 tab PO BID Move Free Joint Health 750 mg-100 mg- 1.65 mg-108 mg Tablet 1 tab PO BID alendronate 70 mg tablet 70 mg PO MO@0900 lidocaine 4 % Adhesive Patch,Medicated 1 patch TOPICAL DAILY calcium carbonate-vitamin D3 600 mg-5 mcg (200 unit) Tablet 1 tab PO BEDTIME omeprazole 20 mg capsule,delayed release(DR/EC) 20 mg PO DAILY@0630 Rx Instructions: replaces prior dose of 20 mg once daily ceramides 1,3,6-II [CeraVe] Cream 1 appl TOPICAL 5XD PRN (Reason: SEBORRHEIC KERATOSES) oxycodone 5 mg Tablet 5 mg PO DAILY PRN (Reason: Pain (Scale Score 4-6)) doxycycline hyclate 100 mg capsule 100 mg PO DAILY MDD One tablet PRN (Reason: Dental Prophylaxis) Rx Instructions: Take one tablet 1 hour before dental procedure. (DME) blood pressure monitor Kit See Rx Instructions .Route Qty: 1 0RF Rx Instructions: As directed cholecalciferol (vitamin D3) 25 mcg (1,000 unit) capsule 25 mcg PO DAILY acetaminophen [Tylenol Extra Strength] 500 mg tablet 1,000 mg PO TID albuterol sulfate [ProAir HFA] 90 mcg/actuation HFA aerosol inhaler 2 puff inhalation Q6H PRN (Reason: Bronchodilation) Discharge Orders: Discharge Order (Routine); Ordered 01/25/24 Ordered By: Dory Abreu Diet: Advance to usual diet Activity on Discharge: No heavy lifting Stand Alone Forms: Patient Portal Discharge page Print Language: Armenian Other Ambulatory Orders: Basic Metabolic Panel (Routine) Timeframe: 1 Week Facility: [facility] - Location: Laboratory Ordered By: Dory Abreu Complete Blood Count no Diff (Routine) Timeframe: 1 Week Facility: [facility] - Location: Laboratory Ordered By: Dory Abreu Liver Panel (Routine) Timeframe: 1 Week Facility: [facility] - Location: Laboratory Ordered By: Dory Abreu Activity Restrictions/Additional Instructions: Gallbladder drain to gravity bulb suction. Please secure the drain so it does n ot hang freely. May shower. No strenuous activities. Care Plan Goals: Patient came to the hospital because of abdominal pain cramping found to have pancolitis on CT abdomen,also has abd sono-possible acute cholecytsitis : Patient stool studies sent, also started on IV antibiotics, blood cultures sent, seen by GI and surgery: Patient declined colonoscopy,very suboptimal operative candidate, surgery -so status post IR gallbladder drainage. Stool C diff negative, gastrointestinal panel also negative. Patient has cholecystostomy tube, also completed IV antibiotics. Blood culture negative. No fever or leukocytosis. Patient will be going home with cholecystostomy tube, see instructions above. Normocytic anemia: Iron studies normal, occult blood positive, patient declined colonoscopy as above. Further management outpatient, monitor CBC and consider outpatient colonoscopy once agreeable. CT abdomen and incidental finding also: Has possible proctitis, patient already completed antibiotic, passing bowels, no pain, rectal exam does not reveal any grossly any mass or possible mild external hemorrhoids. Patient declined colonoscopy as above. CT abdomen also incidental finding:Redemonstration of pancreatic cystic structure body/tail of thepancreas unchanged, continued surveillance recommended, consider follow-up MRI MRCP in 6 months outpatient. Foot pain seems to be improved with Tylenol. X-ray shows possible arthritis. Further management outpatient. discussed with the surgery patient completed antibiotics, outpatient follow-up with surgery. Patient will be going home with services. Above management discussed with the patient and her daughter in detail length both understand and in agreement with the plan, time spent 40 minute. Health Concerns: As above. Plan of Treatment: As above. Assessment: As above.
--- NOTE | 2024-01-25 13:48 | P.F2F_ITS ---
Service Date Service Date: 01/25/24 Encounter Date of encounter: 01/25/24 Encounter: Colitis, cholecystitis Reasons for Services Signs and symptoms assessed: Any new abdominal pain, fever, new symptoms. Reason for assisted: wound care, medication management, medication treatment and teach disease management Reason for physical therapy: home safety and mobility, therapeutic exercises, restore joint function, gait/transfer training, assess need for DME, ADL training, energy conservation and other MD Overseeing Care: Michael Shepard Homebound: Leaving the home is medically contraindicated at this time without the asist of a device and/or another person due th the listed conditions above and below. Reason homebound: weakness related to hospital stay Homebound supporting statement: Patient is generalized weak post hospitalization stay has multiple comorbidities including cholecystitis status post cholecystostomy tube-need help for going to the appointment, blood draws, PT, cholecystostomy tube care. Certification: Based on the above findings, I certify that this patient is confined to the home and needs intermittent assisted care, physical therapy and/or speech therapy, or continues to need occupational therapy. The patient is under my care, and I have initiated the establishment of the plan of care. The patient will be followed by a physician who will periodically review the plan of care. Time Spent With Patient Time: Total time managing care of this patient today ____ minutes.
--- NOTE | 2024-02-05 10:20 | PC.NURSE ---
On 01/31/24 5mg oxycodone PRN administered to pt for 9/10 pain per pt request.
== END 2024-01-25 15:58 | disposition home health service (06) ==
LOC: HO.ED 09:28 → HO.EDOVER 12:31 → HO.S3 19:50
PROVIDERS: Internal Medicine; Physician Assistant Surgical; Admitting Provider Student in an Organized Health Care Education/Training Program; Emergency Provider Emergency Medicine; PCP Internal Medicine; Visit Provider Internal Medicine
DX: K80.00 Calculus of gallbladder with acute cholecystitis without obstruction (principal); I50.32 Chronic diastolic (congestive) heart failure; A09 Infectious gastroenteritis and colitis, unspecified; D64.9 Anemia, unspecified; R19.5 Other fecal abnormalities; I25.10 Atherosclerotic heart disease of native coronary artery without angina pectoris; F03.A0 Unspecified dementia, mild, without behavioral disturbance, psychotic disturbance, mood disturbance, and anxiety; J45.909 Unspecified asthma, uncomplicated; Z20.822 Contact with and (suspected) exposure to COVID-19; Z79.51 Long term (current) use of inhaled steroids; Z79.82 Long term (current) use of aspirin; Z87.891 Personal history of nicotine dependence; Z95.2 Presence of prosthetic heart valve; Z85.3 Personal history of malignant neoplasm of breast; Z95.5 Presence of coronary angioplasty implant and graft; Z79.899 Other long term (current) drug therapy
CPT/HCPCS: 36415; 49406; 73620; 74176; 76705; 80048; 80053; 80076; 81001; 82248; 82272; 82728; 82947; 83540; 83605; 83690; 84484; 85025; 85027; 85610; 85652; 86140; 86850; 86900; 86901; 87040; 87086; 87493; 87502; 87507; 87635; 93005; 94640; 97162; 97530; 99152; 99221; 99285; C1729; C1769; J0737; J1170; J1650; J1836; J1956; J2405; J7120

== ENCOUNTER → 2024-01-16 02:12 | Outpatient (BNV) | payer BC, SELFPAY | PROVIDERS: Admitting Provider Student in an Organized Health Care Education/Training Program; Emergency Provider Emergency Medicine; PCP Internal Medicine; Visit Provider Internal Medicine Cardiovascular Disease | DX: I44.7 Left bundle-branch block, unspecified (principal) | CPT/HCPCS: 93010 ==

== ENCOUNTER 2024-01-16 11:59 | Outpatient (BNV) | payer BC, SELFPAY | END 2024-01-20 14:04 | PROVIDERS: Admitting Provider Student in an Organized Health Care Education/Training Program; Emergency Provider Emergency Medicine; PCP Internal Medicine; Visit Provider Radiology Vascular & Interventional Radiology | DX: K81.9 Cholecystitis, unspecified (principal) | CPT/HCPCS: 47490; 99152 ==

== ENCOUNTER → 2024-01-16 11:59 | Outpatient (BNV) | payer BC, SELFPAY | PROVIDERS: Admitting Provider Student in an Organized Health Care Education/Training Program; Emergency Provider Emergency Medicine; PCP Internal Medicine; Visit Provider Student in an Organized Health Care Education/Training Program | DX: K52.9 Noninfective gastroenteritis and colitis, unspecified (principal); K81.9 Cholecystitis, unspecified; R53.1 Weakness | CPT/HCPCS: 99223; 99231; 99232; 99239; 99499; G0180 ==

== ENCOUNTER → 2024-01-16 11:59 | Outpatient (BNV) | payer BC, SELFPAY | PROVIDERS: Admitting Provider Student in an Organized Health Care Education/Training Program; Emergency Provider Emergency Medicine; PCP Internal Medicine; Visit Provider Internal Medicine Gastroenterology | DX: K52.9 Noninfective gastroenteritis and colitis, unspecified (principal) | CPT/HCPCS: 99223 ==

== ENCOUNTER → 2024-01-16 11:59 | Outpatient (BNV) | payer BC, SELFPAY | PROVIDERS: Admitting Provider Student in an Organized Health Care Education/Training Program; Emergency Provider Emergency Medicine; PCP Internal Medicine; Visit Provider Surgery | DX: K81.9 Cholecystitis, unspecified (principal) | CPT/HCPCS: 99223; 99231; 99233 ==

== ENCOUNTER 2024-01-25 22:54 | Inpatient (IN) | payer BC, SELFPAY ==
--- NOTE | ~2024-01-25 | CT_ITS ---
EXAMINATION: CT ABDOMEN AND PELVIS WITH CONTRAST CLINICAL INFORMATION: Reason for Exam s/p percutaneous cholecystostomy, worsening pain COMPARISON: 01/16/2024 TECHNIQUE: Multidetector volumetric images were obtained from the superior aspect of the liver through the pubic symphysis following administration 85 mL of Omnipaque 350 intravenous contrast. Sagittal and coronal reformatted images were obtained on the technologist's workstation. Oral contrast: No This CT examination was performed using dose optimization techniques as appropriate, variously including the following: *Automated exposure control *Adjustment of mA and/or kV according to patient size (this includes techniques or standardized protocols for targeted exams where dose is matched to indication/reason for exam; i.e. extremities or head) *Use of iterative reconstruction technique DLP: 934 mGy-cm FINDINGS: LUNG BASES: Bibasilar subsegmental atelectasis. Coronary artery calcifications. Status post TAVR. LIVER, GALLBLADDER, AND BILIARY TREE: The liver is normal in size, shape, and attenuation. Small hypodense lesion at the dome of the right hepatic lobe, not adequately characterized on this exam. No significant biliary ductal dilatation is present. Cholecystostomy tube terminates in the gallbladder which is physiologically distended and contains gallstones, as well as demonstrating wall thickening. A couple tiny calcifications are noted along the common bile duct which may represent choledocholithiasis. PANCREAS: Moderately atrophic. Redemonstrated small hypodensity in the pancreas, unchanged from prior. SPLEEN: Unremarkable. ADRENAL GLANDS: Unremarkable. KIDNEYS AND URETERS: Bilateral nephrograms are symmetric. No hydronephrosis or obstructing calculus identified. Left kidney is noted to be atrophic. BLADDER: Unremarkable. GASTROINTESTINAL TRACT: No evidence of bowel obstruction or significant wall thickening. The appendix is unremarkable. No free fluid or free air is seen. ABDOMINAL WALL: No significant hernia is appreciated. LYMPH NODES: Normal. VASCULAR: There is atherosclerotic calcification along the aorta and iliac arteries. PELVIC VISCERA: Coarsely calcified fibroid noted. OSSEOUS STRUCTURES: Multilevel degenerative changes in the spine. Vertebral body augmentation cement at L1. Left sacroiliac joint hardware is present. CT/CT abdomen pelvis w IV con IMPRESSION: Cholecystostomy tube terminates in the gallbladder which is physiologically distended and contains gallstones, as well as demonstrating wall thickening. A couple tiny calcifications along the common bile duct may represent choledocholithiasis. No significant ductal dilation.
--- NOTE | ~2024-01-25 | XR_ITS ---
EXAMINATION: XR CHEST CLINICAL INFORMATION: Dizziness COMPARISON: Chest 05/18/2023 TECHNIQUE: AP upright portable view of the chest was obtained. 2:48 PM FINDINGS: Zipper artifact is outside of the patient. Trace density and the left lung bases most suggestive of atelectasis. No focal consolidation, interstitial pulmonary edema or pneumothorax. Valve replacement is again seen. The cardiomediastinal silhouette is within normal limits. Aortic calcifications are indicative of atherosclerotic disease. No pleural effusion. Again noted is elevation of the right hemidiaphragm. No change in scoliosis and L1 vertebral plasty cement. Catheter tubing is seen in the right upper quadrant. XR/XR chest 1V IMPRESSION: No acute disease.
[2024-01-25 23:02] VITALS: BP 109/48; BP 128/62; PULSE 64; PULSE 66; RESP 20; TEMP 36.7; O2SAT 97; O2SAT 98; BMI 26.6
--- NOTE | 2024-01-25 23:33 | ECG_ITS ---
Test Reason : NAUSEA Blood Pressure : / mmHG Vent. Rate : 069 BPM Atrial Rate : 069 BPM P-R Int : 186 ms QRS Dur : 104 ms QT Int : 420 ms P-R-T Axes : 023 -30 016 degrees QTc Int : 450 ms Normal sinus rhythm Left axis deviation Moderate voltage criteria for LVH, may be normal variant ( R in aVL , Jesu product ) Possible Anterior infarct , age undetermined Abnormal ECG When compared with ECG of 16-JAN-2024 02:46, Incomplete left bundle branch block is no longer Present T wave inversion now evident in Inferior leads Referred By: Erlinda Patricio Electronically Signed By:OLMAN ELMORE MD
--- NOTE | 2024-01-25 23:37 | ED_ITS ---
HPI - General Adult General Chief complaint: Dizziness Stated complaint: DIZZY WHEN STANDING, JUST LEFT FROM HERE Time Seen by Provider: 01/25/24 23:23 Source: patient and EMS Mode of arrival: EMS Limitations: no limitations History of Present Illness ED Provider: Dr. Erlinda Patricio HPI narrative: Patient comes to the emergency room complaining of diarrhea, dizziness with standing, described as room spinning and lightheaded but only with standing from a sitting position. Patient states that earlier today she had multiple episodes of diarrhea, then self-resolved, no vomiting. Patient has abdominal pain. However, patient is 5 days status post percutaneous cholecystostomy for acute cholecystitis. Patient was discharged from the hospital a few hours ago. Patient denies any trauma to the abdominal area. Patient denies any chest pain or shortness of breath. Related Data Home Medications ?Medication ?Instructions ?Recorded ?Confirmed ferrous sulfate 325 mg (65 mg 325 mg PO DAILY 12/31/20 01/16/24 iron) tablet fexofenadine 180 mg tablet 180 mg PO BEDTIME 12/31/20 01/16/24 vitamin E succinate 268 mg (400 400 unit PO DAILY 12/31/20 01/16/24 unit) tablet cyanocobalamin (vitamin B-12) 1,000 mcg PO DAILY 02/06/21 01/16/24 1,000 mcg tablet pyridoxine (vitamin B6) 100 mg 100 mg PO DAILY 02/06/21 01/16/24 tablet cholecalciferol (vitamin D3) 25 25 mcg PO DAILY 11/05/21 01/16/24 mcg (1,000 unit) capsule acetaminophen 500 mg tablet 1,000 mg PO TID Pain 05/18/23 01/16/24 (Tylenol Extra Strength) albuterol sulfate 90 mcg/actuation 2 puff inhalation Q6H PRN 07/08/23 01/16/24 aerosol inhaler (ProAir HFA) Bronchodilation alendronate 70 mg tablet 70 mg PO MO@0900 08/08/23 01/16/24 ascorbic acid (vitamin C) 500 mg 500 mg PO DAILY 08/08/23 01/16/24 tablet (Vitamin C) diphenhydramine HCl 25 mg capsule 25 mg PO DAILY PRN Itching 08/08/23 01/16/24 (Benadryl) glucosam 750 mg-chondroi 100 1 tab PO BID 08/08/23 01/16/24 mg-hyalur 1.65 mg-CF borate 108 mg tablet (Move Free [facility]) lidocaine 4 % topical patch 1 patch topical DAILY 08/08/23 01/16/24 vit C 250 mg-vit E 90 mg-zinc 40 1 tab PO BID 08/08/23 01/16/24 mg-copper 1 [id number] capsule (PreserVision AREDS-2) calcium carbonate 600 mg-vitamin 1 tab PO BEDTIME 01/16/24 01/16/24 D3 5 mcg (200 unit) tablet ceramides 1,3,6-II (CeraVe topical 1 appl topical 5XD PRN SEBORRHEIC 01/16/24 01/16/24 cream) KERATOSES doxycycline hyclate 100 mg capsule 100 mg PO DAILY PRN Dental 01/16/24 01/16/24 Prophylaxis omeprazole 20 mg capsule,delayed 20 mg PO DAILY@0630 01/16/24 01/16/24 release oxycodone 5 mg tablet 5 mg PO DAILY PRN Pain (Scale 01/16/24 01/16/24 Score 4-6) Previous Rx's ?Medication ?Instructions ?Recorded blood pressure monitor #1 ea 07/15/21 metoprolol tartrate 25 mg tablet 25 mg PO BID #180 tabs 04/21/23 amitriptyline 10 mg tablet 10 mg PO BEDTIME #90 tabs 07/15/23 fluticasone propionate 220 2 puff inhalation BID asthma 30 09/10/23 mcg/actuation HFA aerosol inhaler days #12 grams atorvastatin 80 mg tablet 80 mg PO BEDTIME #90 tabs 10/07/23 nifedipine 30 mg tablet,extended 30 mg PO DAILY #90 tabs 12/28/23 release aspirin 81 mg tablet,delayed 81 mg PO DAILY #90 tabs 01/04/24 release Allergies Allergy/AdvReac Type Severity Reaction Status Date / Time meperidine [From Demerol] Allergy Severe Nausea and Verified 01/25/24 23:12 Vomiting amoxicillin [AMOXICILLIN] Allergy Intermediate Rash Verified 01/25/24 23:12 cephalexin Allergy Intermediate Itching Verified 01/25/24 23:12 erythromycin base Allergy Intermediate Itching Verified 01/25/24 23:12 meloxicam Allergy Intermediate Abdominal Verified 01/25/24 23:12 Pain nitrofurantoin Allergy Intermediate Rash Verified 01/25/24 23:12 [From Macrobid] Penicillins Allergy Intermediate Rash Verified 01/25/24 23:12 Sulfa (Sulfonamide Allergy Intermediate Rash Verified 01/25/24 23:12 Antibiotics) [SULFA(SULFONAMIDE ANTIBIOTICS)] tramadol Allergy Intermediate Nausea and Verified 01/25/24 23:12 Vomiting codeine [CODEINE] AdvReac Intermediate Nausea Verified 01/25/24 23:12 Review of Systems 2 Review of Systems: Constitutional : No Weight loss, No Fever, No Chills, No Night Sweats, No Fatigue, No Malaise ENT/Mouth : No Hearing loss, No Ear Pain, No Nasal Congestion, No Sinus Pain, No Hoarseness, No sore throat, No Rhinorrhea, No Swallowing Difficulty Eyes: No Eye Pain, No Swelling, No Redness, No Foreign Body, No Discharge, No Vision Changes Cardiovascular : No Chest Pain, No SOB, No Dyspnea on Exertion, No Orthopnea, No Edema, No Palpitations Respiratory : No Cough, No Sputum, No Wheezing, No Smoke Exposure, No Dyspnea Gastrointestinal : No Nausea, No Vomiting, No Diarrhea, No Constipation, complaining of diffuse abdominal discomfort Genitourinary : no irregular bleeding, No Dysuria, No Urinary Frequency, No Hematuria, No Urinary Incontinence, No Urgency, No Flank Pain, No Urinary Flow Changes, No Hesitancy Musculoskeletal : No joint pain, No Myalgias, No Joint Swelling Skin : No Skin Lesions, No rash Neuro : No Weakness, No Numbness, No Paresthesias, No Loss of Consciousness, complaining of dizziness described as room spinning and lightheadedness with standing Psych : No Anxiety/Panic, No Depression, No SI/HI/AH/VH, No Social Issues, Heme/Lymph: No Bruising, No Bleeding,No Lymphadenopathy Endocrine : No Polyuria, No Polydipsia, No Temperature Intolerance [facility] Past Medical History Medical History PONV (postoperative nausea and vomiting) COPD (chronic obstructive pulmonary disease) CHF (congestive heart failure) Macular degeneration Dementia HTN (hypertension) Breast cancer Atherosclerotic cardiovascular disease Coronary artery disease Anemia Aortic stenosis, severe Primary osteoarthritis involving multiple joints Osteoporosis Benign essential HTN Asthma Allergic rhinitis Surgical History S/P TAVR (transcatheter aortic valve replacement) S/P cardiac catheterization History of hand surgery History of heart artery stent History of laminectomy History of kyphoplasty History of cataract surgery History of D&C Family History Family History Father Hypertension Mother Thyroid cancer Sister Breast cancer Social History Social History Household Members: None Household Members Other:: assisted living [facility] Housing: Assisted Living Facility Housing Other:: [facility] Are you a primary child care counselor to a significant other at home: No Do you presently have visiting nurse or other home services: No Alcohol intake: never Patient Tobacco Use Status: Former Tobacco user Tobacco use type: Cigarette Years Smoked: 5 e-Cigarette/Vaping Use: Never Used Second Hand Smoke Exposure: No Advance Directives: Yes Advance Directives on File: Yes Advance Directives Date on File: 02/06/21 service: No Current occupational status: retired Cognitive needs: Yes (walker/cane) Hearing needs: Yes (hearing aide) Vision needs: Yes (glasses) Physical Exam ED Vital Signs: Vital Signs - 24 hr 01/25/24 23:02 01/26/24 00:01 01/26/24 00:02 Temperature 98.1 F Pulse Rate 66 67 71 Respiratory Rate 20 Blood Pressure 109/48 L 122/51 L 115/55 L Pulse Oximetry 97 Oxygen Delivery Method Room Air 01/26/24 00:04 01/26/24 01:11 01/26/24 03:26 Temperature Pulse Rate 78 71 78 Respiratory Rate 18 20 Blood Pressure 86/70 L 114/49 L 117/55 L Pulse Oximetry 97 96 Oxygen Delivery Method Room Air Room Air 01/26/24 05:08 01/26/24 05:08 01/26/24 05:09 Temperature Pulse Rate 81 86 97 Respiratory Rate Blood Pressure 126/54 L 125/56 L 91/45 L Pulse Oximetry Oxygen Delivery Method 01/26/24 06:56 01/26/24 06:56 01/26/24 07:00 Temperature Pulse Rate 86 88 80 Respiratory Rate 20 Blood Pressure 130/56 L 131/60 130/56 L Pulse Oximetry 95 Oxygen Delivery Method Room Air 01/26/24 07:00 01/26/24 07:01 Temperature Pulse Rate 88 99 Respiratory Rate Blood Pressure 131/60 105/49 L Pulse Oximetry Oxygen Delivery Method BMI result Body Mass Index 26.6 Const Other: Appearance: Alert. Oriented X3. No acute distress. Seems a bit uncomfortable Eyes: Pupils equal, round and reactive to light. ENT: Pharynx normal. Neck: Normal inspection. Neck supple. No lymph nodes noted. No crepitus CVS: Normal heart rate and rhythm. Pulses normal. Normal S1 and S2 Respiratory: No respiratory distress. Breath sounds normal. No Wheezing. No rales Abdomen: Soft , no rebound, no guarding, no distension, mild diffuse pain to palpation, percutaneous cholecystostomy drain catheter in place, no signs of cellulitis or leakage Skin: Skin warm and dry. Normal skin color. Normal skin turgor. Extremities: No lower extremity edema. No Lacerations. No Rash Neuro: Oriented X 3. No motor deficit. No sensory deficit. Moving all extremities. No slurred speech. CN 2 through 12 grossly intact Psych: calm, cooperative, normal affect Course Course Course Narrative: -patient receiving IV fluids, declined pain medication at this time. -orthostatic vitals pending -CT scan pending Medications Administered Discontinued Medications Generic Name Dose Route Start Last Admin Trade Name Freq PRN Reason Stop Dose Admin Sodium Chloride 1,000 mls @ 999 mls/hr 01/25/24 23:32 01/26/24 04:04 Ns IVCONT 01/26/24 00:32 Infused .Q1H1M ONE Infusion Sodium Chloride 1,000 mls @ 999 mls/hr 01/26/24 05:13 01/26/24 06:52 Ns IVCONT 01/26/24 06:13 Infused .Q1H1M ONE Infusion Iohexol 85 ml 01/26/24 01:34 01/26/24 01:35 Iohexol 350 Mg/Ml 100 Ml Infus..Btl IV 01/26/24 01:35 85 ml ONCE ONE Administration Medical Decision Making Medical Decision Making [facility] Narrative: -my interpretation of labs, no acute abnormality on hematology and chemistry -my interpretation of EKG, normal sinus rhythm, heart rate 69, no ST segment depression or elevation, no T-wave inversion, QTC 450 -CT scan: Cholecystectomy tube mcc the gallbladder. No acute abnormality -orthostatic vitals positive, patient received IV fluids -patient's orthostatics were checked after 1 L of normal saline, patient was treated orthostatic. -same was repeated after 2 L of normal saline, patient is still feeling dizzy, and blood pressure dropped 25 point systolic, feeling dizzy, patient being hydrated. Patient is on 1/3 L. -patient will likely need readmission. -discussed the patient with the hospitalist team, patient being admitted Differential Diagnosis Differential Diagnoses: The differential diagnosis associated with the presentation includes (Dehydration, orthostatic hypotension) Admission/Observation Consideration of admission/observation: Escalation of care including admission/observation considered Consult Healthcare Provider Management of the patient was discussed with: Hospitalist Lab Data MDM Lab Attestation statement: I reviewed the patient's lab results. 01/26/24 00:16 01/26/24 00:16 Labs: Lab Results 01/26/24 Range/Units 00:16 WBC 8.9 (4.8-10.8) X10*3/uL RBC 2.99 L (4.20-5.50) X10*6/uL Hgb 9.6 L (12.0-16.0) g/dl Hct 28.2 L (37.0-47.0) % MCV 94.3 (80.0-98.0) fL MCH 32.1 (27.0-33.0) pg MCHC 34.0 (31.0-35.0) g/dl RDW 13.6 (11.0-16.0) % Plt Count 240 (160-400) X10*3/uL MPV 9.6 (9.4-12.3) fL Immature Gran % (Auto) 0.4 (0.0-0.4) % Neut % (Auto) 61.8 (45-73) % Lymph % (Auto) 26.2 (20-40) % [place] % (Auto) 8.8 (2-11) % Eos % (Auto) 2.4 (0-4) % Baso % (Auto) 0.4 (0-2) % Lymph # (Auto) 2.3 (1.2-4.9) X10*3/uL [place] # (Auto) 0.8 (0.1-1.2) X10*3/uL Eos # (Auto) 0.2 (0.0-0.4) X10*3/uL Baso # (Auto) 0.0 (0.0-0.2) X10*3/uL Abs Immat Gran (auto) 0.04 H (0.00-0.03) X10*3/uL Absolute Neuts (auto) 5.5 (2.0-8.3) x10*3/uL Absolute Nucleated RBC 0.000 (0.0-0.012) X10*3/uL Nucleated RBC % (auto) 0.0 (0.0-0.2) /100WBC PT 12.9 (11.1-13.3) SEC INR 1.1 (0.9-1.1) Sodium 133 L (135-145) mmol/L Potassium 3.9 (3.3-5.1) mmol/L Chloride 104 (96-108) mmol/L Carbon Dioxide 21 L (22-29) mmol/L Anion Gap 12 (12-20) BUN 17 H (9-16) mg/dL Creatinine 1.13 (0.5-1.4) mg/dL Estim Creat Clear Calc 34.9 Estimated GFR 46 Random Glucose 111 (60-115) mg/dL Lactic Acid 1.1 (0.5-2.0) mmol/L Calcium 8.7 (8.4-10.2) mg/dL Magnesium 1.5 L (1.6-2.6) mg/dL Total Bilirubin 0.3 (0.0-1.0) mg/dL Direct Bilirubin 0.1 (0.0-0.5) mg/dL AST 33 H (5-31) U/L ALT 20 (0-31) U/L Alkaline Phosphatase 56 (39-117) U/L Troponin I High Sens 9.6 D (<3.5-17.0) ng/L Total Protein 6.3 L (6.5-8.0) g/dL Albumin 3.4 L (3.5-5.0) g/dL Lipase 26 (8-78) U/L COVID-19 ([facility]) Negative (Negative) COVID-19 Clin Com See Note Critical Care Time Critical Care Time Critical Care Time: Yes Total Critical Care Time: 60 Attestation: I have personally provided critical care time. Time includes review of lab data, radiology results, discussion with consultants, and monitoring for potential decompensation. Intervention performed as documented. Discharge Plan Discharge Clinical Impression: Orthostatic hypotension Patient Disposition: Admitted As Inpatient Prescriptions: No Action fexofenadine 180 mg tablet 180 mg PO BEDTIME ferrous sulfate 325 mg (65 mg iron) tablet 325 mg PO DAILY vitamin E succinate 400 unit tablet 400 unit PO DAILY metoprolol tartrate 25 mg tablet 25 mg PO BID Qty: 180 3RF amitriptyline 10 mg tablet 10 mg PO BEDTIME Qty: 90 1RF fluticasone propionate 220 mcg/actuation HFA aerosol inhaler 2 puff inhalation BID 30 Days Qty: 12 5RF Rx Instructions: administer with spacer atorvastatin 80 mg tablet 80 mg PO BEDTIME Qty: 90 3RF nifedipine 30 mg tablet extended release 30 mg PO DAILY Qty: 90 0RF aspirin 81 mg tablet,delayed release (DR/EC) 81 mg PO DAILY Qty: 90 3RF cyanocobalamin (vitamin B-12) 1,000 mcg Tablet 1,000 mcg PO DAILY pyridoxine (vitamin B6) 100 mg Tablet 100 mg PO DAILY ascorbic acid (vitamin C) [Vitamin C] 500 mg Tablet 500 mg PO DAILY diphenhydramine HCl [Benadryl] 25 mg Capsule 25 mg PO DAILY PRN (Reason: Itching) PreserVision AREDS-2 250-90-40-1 mg Capsule 1 tab PO BID Move Free [facility] 750 mg-100 mg- 1.65 mg-108 mg Tablet 1 tab PO BID alendronate 70 mg tablet 70 mg PO MO@0900 lidocaine 4 % Adhesive Patch,Medicated 1 patch TOPICAL DAILY calcium carbonate-vitamin D3 600 mg-5 mcg (200 unit) Tablet 1 tab PO BEDTIME omeprazole 20 mg capsule,delayed release(DR/EC) 20 mg PO DAILY@0630 Rx Instructions: replaces prior dose of 20 mg once daily ceramides 1,3,6-II [CeraVe] Cream 1 appl TOPICAL 5XD PRN (Reason: SEBORRHEIC KERATOSES) oxycodone 5 mg Tablet 5 mg PO DAILY PRN (Reason: Pain (Scale Score 4-6)) doxycycline hyclate 100 mg capsule 100 mg PO DAILY MDD One tablet PRN (Reason: Dental Prophylaxis) Rx Instructions: Take one tablet 1 hour before dental procedure. (DME) blood pressure monitor Kit See Rx Instructions .Route Qty: 1 0RF Rx Instructions: As directed cholecalciferol (vitamin D3) 25 mcg (1,000 unit) capsule 25 mcg PO DAILY acetaminophen [Tylenol Extra Strength] 500 mg tablet 1,000 mg PO TID albuterol sulfate [ProAir HFA] 90 mcg/actuation HFA aerosol inhaler 2 puff inhalation Q6H PRN (Reason: Bronchodilation) Print Language: Macedonian
[2024-01-26] VITALS (15 sets, daily range): BP systolic 86–144; BP diastolic 45–70; PULSE 67–99; RESP 16–20; TEMP 36.3–36.9; O2SAT 95–98; BMI 29.7
[2024-01-26 00:24] LABS: Basophils Percent Auto 0.4 % (0-2); Eosinophils Absolute Auto 0.2 X10*3/uL (0.0-0.4); Eosinophils Percent Auto 2.4 % (0-4); Hematocrit 28.2 % (37.0-47.0); Hemoglobin 9.6 g/dl (12.0-16.0); Imm Gran Abs Auto 0.04 X10*3/uL (0.00-0.03); Imm Gran Pct Auto 0.4 % (0.0-0.4); Lymphocytes Absolute Auto 2.3 X10*3/uL (1.2-4.9); Lymphocytes Percent Auto 26.2 % (20-40); MANUAL DIFF FLAG NO; Mean Corpuscular Hemoglobin 32.1 pg (27.0-33.0); Mean Corpuscular Volume 94.3 fL (80.0-98.0); Mean Platelet Volume 9.6 fL (9.4-12.3); Monocytes Absolute Auto 0.8 X10*3/uL (0.1-1.2); Monocytes Percent Auto 8.8 % (2-11); Neutrophils Absolute Auto 5.5 x10*3/uL (2.0-8.3); Neutrophils Percent Auto 61.8 % (45-73); Platelet Count 240 X10*3/uL (160-400); Red Blood Count 2.99 X10*6/uL (4.20-5.50); Red Cell Distribution Width 13.6 % (11.0-16.0); White Blood Count 8.9 X10*3/uL (4.8-10.8)
[2024-01-26 00:29] LABS: INTERNATIONAL NORM RATIO 1.1 (0.9-1.1); Prothrombin Time 12.9 SEC (11.1-13.3)
[2024-01-26 00:34] LABS: Lactic Acid 1.1 mmol/L (0.5-2.0)
[2024-01-26 00:39] LABS: Alanine Aminotransferase 20 U/L (0-31); Albumin Level 3.4 g/dL (3.5-5.0); Alkaline Phosphatase 56 U/L (39-117); Anion Gap 12 (12-20); Aspartate Amino Transferase 33 U/L (5-31); Bilirubin Direct 0.1 mg/dL (0.0-0.5); Bilirubin Total 0.3 mg/dL (0.0-1.0); Blood Urea Nitrogen 17 mg/dL (9-16); Calcium 8.7 mg/dL (8.4-10.2); Carbon Dioxide 21 mmol/L (22-29); Chloride 104 mmol/L (96-108); Creatinine Clr Calc Pharmacy 34.9; Estimated Glomerular Filt Rate 46; Glucose Random 111 mg/dL (60-115); Lipase 26 U/L (8-78); Magnesium 1.5 mg/dL (1.6-2.6); Potassium 3.9 mmol/L (3.3-5.1); Sodium 133 mmol/L (135-145); Total Protein 6.3 g/dL (6.5-8.0)
[2024-01-26 00:41] LABS: COVID-19 Test Negative (Negative); IDNOW Serial# 08D9AD1C
[2024-01-26 00:44] LABS: Troponin-I High Sensitivity 9.6 ng/L (<3.5-17.0)
[2024-01-26] MEDS: 0.9 % Sodium Chloride 1,000 ML 999 ML IVCONT ×3 (01:10→07:46)
[2024-01-26] MEDS: iohexoL 350 MG/ML 100 ML INFUS..BTL 85 ML IV (01:35)
--- NOTE | 2024-01-26 04:40 | PC.NURSE ---
2 assist [address] commode. denies dizziness
--- NOTE | 2024-01-26 05:58 | PC.NURSE ---
purewick in place
--- NOTE | 2024-01-26 08:50 | PHA.MEDREC ---
Pharmacy Consult ? Medication Reconciliation Pharmacy has completed the medication reconciliation. Patient discharged yesterday 01/25/24. Utilized discharge packet.
--- NOTE | 2024-01-26 09:46 | PM.IMHP ---
History of Present Illness Date of Service: 01/26/24 Attending physician on admission: Gurpreet Jessica Chief Complaint: dizziness 88-year-old female with a PMH significant for?HFpEF, aortic valve replacement s/p TAVR, mild dementia, hx of breast cancer, CAD, osteoporosis, asthma, lifelong anemia, and macular degeneration who presented to the ED last night for evaluation of dizziness. She was discharged yesterday from our facility after being treated with pancolitis and cholecystitis s/p percutaenous cholecystostomy tube placement by IR. She was considered for colonoscopy but declined and was considered suboptimately candidate given age and comorbidities. She did complete course of antibiotics. She states that she did have diarrhea on arrival last admission but has not had recurrent episodes in about 7-8 days. No vomiting. She was tolerating diet on discharge and states she was eating and drinking when she got home. She reports when she got home she was experiencing positional dizziness and felt unsteady. No other associated symptoms including sob, palpitations, headaches, vision changes, chest pain. No recent illness. No fevers, chills, urinary symptoms, cough, st, congestion. On arrival, VSS at rest, but significant for orthostatic hypotension which persisted despite 3L IVF. No leukocytosis. Stable anemia. Creat 1.13, was 0.95 on discharge. BUN 17. Na 133, CO2 21, Mg 1.5, lytes otherwise normal. CT abd/pelvis shows cholecystostomy tube in gallbladder which is noted to be distended and contains gallstones, as well as wall thickening, possible choledocolithiasis. No significant ductal dilitation. In the ED, received 3 L IVF. Review of Systems Review of Systems: Yes all other systems are reviewed and are negative FORMERLY [facility], 1928–1983 Medical History PONV (postoperative nausea and vomiting) COPD (chronic obstructive pulmonary disease) CHF (congestive heart failure) Macular degeneration Dementia HTN (hypertension) Breast cancer Atherosclerotic cardiovascular disease Coronary artery disease Anemia Aortic stenosis, severe Primary osteoarthritis involving multiple joints Osteoporosis Benign essential HTN Asthma Allergic rhinitis Family History Father Hypertension Mother Thyroid cancer Sister Breast cancer Surgical History S/P TAVR (transcatheter aortic valve replacement) S/P cardiac catheterization History of hand surgery History of heart artery stent History of laminectomy History of kyphoplasty History of cataract surgery History of D&C Social History Household Members: None Household Members Other:: assisted living [facility] Housing: Assisted Living Facility Housing Other:: [facility] Are you a primary home care associate to a significant other at home: No Do you presently have visiting nurse or other home services: No Alcohol intake: never Patient Tobacco Use Status: Former Tobacco user Tobacco use type: Cigarette Years Smoked: 5 e-Cigarette/Vaping Use: Never Used Second Hand Smoke Exposure: No Advance Directives: Yes Advance Directives on File: Yes Advance Directives Date on File: 02/06/21 service: No Current occupational status: retired Cognitive needs: Yes (walker/cane) Hearing needs: Yes (hearing aide) Vision needs: Yes (glasses) Meds Allergies Allergy/AdvReac Type Severity Reaction Status Date / Time meperidine [From Demerol] Allergy Severe Nausea and Verified 01/25/24 23:12 Vomiting amoxicillin [AMOXICILLIN] Allergy Intermediate Rash Verified 01/25/24 23:12 cephalexin Allergy Intermediate Itching Verified 01/25/24 23:12 erythromycin base Allergy Intermediate Itching Verified 01/25/24 23:12 meloxicam Allergy Intermediate Abdominal Verified 01/25/24 23:12 Pain nitrofurantoin Allergy Intermediate Rash Verified 01/25/24 23:12 [From Macrobid] Penicillins Allergy Intermediate Rash Verified 01/25/24 23:12 Sulfa (Sulfonamide Allergy Intermediate Rash Verified 01/25/24 23:12 Antibiotics) [SULFA(SULFONAMIDE ANTIBIOTICS)] tramadol Allergy Intermediate Nausea and Verified 01/25/24 23:12 Vomiting codeine [CODEINE] AdvReac Intermediate Nausea Verified 01/25/24 23:12 Home Medications ?Medication ?Instructions ?Recorded ?Confirmed ?Last Taken ?Type ferrous sulfate 325 mg (65 mg 325 mg PO DAILY 12/31/20 01/26/24 03/11/23 History iron) tablet fexofenadine 180 mg tablet 180 mg PO BEDTIME 12/31/20 01/26/24 Unknown History vitamin E succinate 268 mg (400 400 unit PO DAILY 12/31/20 01/26/24 09/09/23 History unit) tablet cyanocobalamin (vitamin B-12) 1,000 mcg PO DAILY 02/06/21 01/26/24 09/09/23 History 1,000 mcg tablet pyridoxine (vitamin B6) 100 mg 100 mg PO DAILY 02/06/21 01/26/24 09/09/23 History tablet cholecalciferol (vitamin D3) 25 25 mcg PO DAILY 11/05/21 01/26/24 03/11/23 History mcg (1,000 unit) capsule acetaminophen 500 mg tablet 1,000 mg PO TID Pain 05/18/23 01/26/24 09/09/23 History (Tylenol Extra Strength) albuterol sulfate 90 mcg/actuation 2 puff inhalation Q6H PRN 07/08/23 01/26/24 Unknown History aerosol inhaler (ProAir HFA) Bronchodilation alendronate 70 mg tablet 70 mg PO MO@0900 08/08/23 01/26/24 09/09/23 History ascorbic acid (vitamin C) 500 mg 500 mg PO DAILY 08/08/23 01/26/24 09/09/23 History tablet (Vitamin C) diphenhydramine HCl 25 mg capsule 25 mg PO DAILY PRN Itching 08/08/23 01/26/24 09/09/23 History (Benadryl) glucosam 750 mg-chondroi 100 1 tab PO BID 08/08/23 01/26/24 09/09/23 History mg-hyalur 1.65 mg-CF borate 108 mg tablet ([facility]) lidocaine 4 % topical patch 1 patch topical DAILY 08/08/23 01/26/24 09/09/23 History vit C 250 mg-vit E 90 mg-zinc 40 1 tab PO BID 08/08/23 01/26/24 09/09/23 History mg-copper 1 [id number] capsule (PreserVision AREDS-2) calcium carbonate 600 mg-vitamin 1 tab PO BEDTIME 01/16/24 01/26/24 Unknown History D3 5 mcg (200 unit) tablet ceramides 1,3,6-II (CeraVe topical 1 appl topical 5XD PRN SEBORRHEIC 01/16/24 01/26/24 Unknown History cream) KERATOSES doxycycline hyclate 100 mg capsule 100 mg PO DAILY PRN Dental 01/16/24 01/26/24 Unknown History Prophylaxis omeprazole 20 mg capsule,delayed 20 mg PO DAILY@0630 01/16/24 01/26/24 Unknown History release oxycodone 5 mg tablet 5 mg PO DAILY PRN Pain (Scale 01/16/24 01/26/24 Unknown History Score 4-6) Physical Exam Vital Signs and Narrative: Vital Signs: Last Vital Signs Temp 98.1 F 01/25/24 23:02 Pulse 99 01/26/24 07:01 Resp 20 01/26/24 06:56 BP 105/49 L 01/26/24 07:01 Pulse Ox 95 01/26/24 06:56 O2 Del Method Room Air 01/26/24 06:56 BMI result Body Mass Index 26.6 Constitutional - Awake and Alert, No apparent distress Eyes - PERRLA, EOMI Cardiovascular - S1S2, RRR, No edema Respiratory - Normal lung expansion, Normal respiratory effort, No respiratory distress, CTA bilaterally Gastrointestinal - perc jaun manuel tube in place ruq with bilious output. No erythema, purulent drainage at insertion site. NT / ND; +BS; No rebound or guarding Extremities - no calf tenderness bilaterally, no swelling Skin - Warm/Dry Neurological - Alert & oriented x3 Psychological - Appropriate affect Results Labs 01/26/24 00:16 01/26/24 10:09 Labs: Laboratory Results - last 24 hr 01/26/24 00:16 MCV 94.3 MCH 32.1 MCHC 34.0 RDW 13.6 Plt Count 240 MPV 9.6 Immature Gran % (Auto) 0.4 Neut % (Auto) 61.8 Lymph % (Auto) 26.2 [place] % (Auto) 8.8 Eos % (Auto) 2.4 Baso % (Auto) 0.4 Lymph # (Auto) 2.3 [place] # (Auto) 0.8 Eos # (Auto) 0.2 Baso # (Auto) 0.0 Abs Immat Gran (auto) 0.04 H Absolute Neuts (auto) 5.5 Absolute Nucleated RBC 0.000 Nucleated RBC % (auto) 0.0 PT 12.9 INR 1.1 Anion Gap 12 Estim Creat Clear Calc 34.9 Estimated GFR 46 Random Glucose 111 Lactic Acid 1.1 Calcium 8.7 Magnesium 1.5 L Total Bilirubin 0.3 Direct Bilirubin 0.1 AST 33 H ALT 20 Alkaline Phosphatase 56 Troponin I High Sens 9.6 D Total Protein 6.3 L Albumin 3.4 L Lipase 26 COVID-19 ([facility]) Negative COVID-19 Clin Com See Note Imaging Radiologist's Impressions: Impressions Abdomen/Pelvis CT 01/26/24 01:57 IMPRESSION: Cholecystostomy tube terminates in the gallbladder which is physiologically distended and contains gallstones, as well as demonstrating wall thickening. A couple tiny calcifications along the common bile duct may represent choledocholithiasis. No significant ductal dilation. Assessment and Plan (1) Orthostatic hypotension: Status: Acute Plan 88-year-old female with a PMH significant for?HFpEF, aortic valve replacement s/p TAVR, mild dementia, hx of breast cancer, CAD, osteoporosis, asthma, lifelong anemia, and macular degeneration who presented to the ED last night for evaluation of dizziness. She was discharged yesterday from our facility after being treated with pancolitis and cholecystitis s/p percutaenous cholecystostomy tube placement by IR. She was considered for colonoscopy but declined and was considered suboptimately candidate given age and comorbidities. She did complete course of antibiotics. She will be observed overnight for orthostatic hypotension #Orthostatic hypotension -suspect related to suboptimal PO intake s/p perc cholecystostomy and pancolitis that is now resolved -Continue gentle IVF -repeat labs now -repeat orthostatic vs am -follow renal fx #Cholelithiasis with recent cholecystitis -s/p perc ujan manuel placed by IR -clear liquids for now -general surgery consult #CAD Continue aspirin, statin #HTN, continue metoprolol, nifedipine #Asthma Not in acute exacerbation Continue home inhalers #Chronic anemia H&H at baseline Continue iron supplementation Follow CBC dvt prophylaxis- lovenox full code Quality Stroke Does the patient have a stroke diagnosis?: No VTE Prior VTE?: No VTE Risk Level:: Medical - moderate - high VTE Device Contraindication: Treatment Not Indicated VTE Drug Contraindication: N/A - Med Ordered
[2024-01-26 10:26] LABS: Anion Gap 14 (12-20); Blood Urea Nitrogen 12 mg/dL (9-16); Carbon Dioxide 19 mmol/L (22-29); Chloride 110 mmol/L (96-108); Creatinine Clr Calc Pharmacy 50.1; Estimated Glomerular Filt Rate > 60; Glucose Random 99 mg/dL (60-115); Potassium 3.8 mmol/L (3.3-5.1); Sodium 139 mmol/L (135-145)
[2024-01-26] MEDS: 0.9 % Sodium Chloride 1,000 ML 75 ML IVCONT ×2 (10:31→22:53)
[2024-01-26] MEDS: Enoxaparin Sodium 40 MG/0.4 ML SYRINGE SUBCUT (11:25)
[2024-01-26 11:28] LABS: Appearance Urine Clear; Color Urine Yellow; Glucose Urine UA Negative (Negative); Leukocyte Esterase Urine Small (1+) (Negative); Nitrite Urine Negative (Negative); PH 6.5 (5.0-9.0); Specific Gravity - Urine 1.015 (1.005-1.025); UMIC TRIGGER UACC YES; Urine Blood Negative (Negative); Urine Ketones Negative (Negative); Urine Protein Negative (Neg-Trace)
[2024-01-26 11:35] LABS: Bacteria Urine None Seen (None Seen); Hyaline Casts Urine 0-2 /LPF (0-2); RBC Urine 0-2 /HPF (0-2); Squamous Epithelial Cell Urine 0-2 /HPF (0-2); UACC Culture Trigger YES; WBC Urine 0-5 /HPF (0-5)
--- NOTE | 2024-01-26 12:01 | PC.NURSE ---
patient alert and oriented x4, respirations equal and unlabored, patient percutaneous juan manuel drain [place] is dry and intact. patient currently receiving 75ml/hr NS via IV. patient this morning alerted the RN that she was not able to urinate even though she tried, patient bladder scanned and found 700 ml on scanner, patient provider notified, straight cath ordered, 750 output of clear yellow urine, patient urine sample collected and sent.
--- NOTE | 2024-01-26 12:30 | P.CONGS_ITS ---
History of Present Illness Consult details Consult date: 01/26/24 Narrative: 88-year-old female with a PMH significant for?HFpEF, aortic valve replacement s/p TAVR, mild dementia, hx of breast cancer, CAD, osteoporosis, asthma, lifelong anemia, and macular degeneration who presented to the ED last night for evaluation of dizziness. She was discharged yesterday from our facility after being treated with pancolitis and cholecystitis s/p percutaenous cholecystostomy tube placement by IR. She was considered for colonoscopy but declined and was considered suboptimately candidate given age and comorbidities. Patient's cholecystostomy tube is in place and draining a large amount of bilious material. She denies any significant pain in her right upper quadrant other than where the drain goes in. She has not nauseated. She has not entirely sure what happened yesterday to explain her dizziness but is feeling better now. Review of Systems 2 Review of Systems: Yes all other systems are reviewed and are negative PMFSH Past Medical History Medical History PONV (postoperative nausea and vomiting) COPD (chronic obstructive pulmonary disease) CHF (congestive heart failure) Macular degeneration Dementia HTN (hypertension) Breast cancer Atherosclerotic cardiovascular disease Coronary artery disease Anemia Aortic stenosis, severe Primary osteoarthritis involving multiple joints Osteoporosis Benign essential HTN Asthma Allergic rhinitis Family History Family History Father Hypertension Mother Thyroid cancer Sister Breast cancer Surgical History Surgical History S/P TAVR (transcatheter aortic valve replacement) S/P cardiac catheterization History of hand surgery History of heart artery stent History of laminectomy History of kyphoplasty History of cataract surgery History of D&C Social History Social History Household Members: None Household Members Other:: assisted living [facility] Housing: Assisted Living Facility Housing Other:: [facility] Are you a primary resident care associate to a significant other at home: No Do you presently have visiting nurse or other home services: No Alcohol intake: never Patient Tobacco Use Status: Former Tobacco user Tobacco use type: Cigarette Years Smoked: 5 Smoked in Last 30 Days: No e-Cigarette/Vaping Use: Never Used Second Hand Smoke Exposure: No Use of substances other than those prescribed or required for medical reasons: No Advance Directives: Yes Advance Directives on File: Yes Advance Directives Date on File: 02/06/21 service: No Current occupational status: retired Cognitive needs: Yes (walker/cane) Hearing needs: Yes (hearing aide) Vision needs: Yes (glasses) Meds Allergies Allergy/AdvReac Type Severity Reaction Status Date / Time meperidine [From Demerol] Allergy Severe Nausea and Verified 01/25/24 23:12 Vomiting amoxicillin [AMOXICILLIN] Allergy Intermediate Rash Verified 01/25/24 23:12 cephalexin Allergy Intermediate Itching Verified 01/25/24 23:12 erythromycin base Allergy Intermediate Itching Verified 01/25/24 23:12 meloxicam Allergy Intermediate Abdominal Verified 01/25/24 23:12 Pain nitrofurantoin Allergy Intermediate Rash Verified 01/25/24 23:12 [From Macrobid] Penicillins Allergy Intermediate Rash Verified 01/25/24 23:12 Sulfa (Sulfonamide Allergy Intermediate Rash Verified 01/25/24 23:12 Antibiotics) [SULFA(SULFONAMIDE ANTIBIOTICS)] tramadol Allergy Intermediate Nausea and Verified 01/25/24 23:12 Vomiting codeine [CODEINE] AdvReac Intermediate Nausea Verified 01/25/24 23:12 Active Medications: Current Medications Acetaminophen (Acetaminophen 325 Mg Tablet) 650 mg PO Q6H PRN PRN Reason: Pain, Mild (Pain Scale 1-3) Albuterol Sulfate (Albuterol Sulfate 90 Mcg 8 Gm Inhaler) 2 puff INHALE Q6H PRN PRN Reason: Bronchodilation Amitriptyline HCl (Amitriptyline Hcl 10 Mg Tablet) 10 mg PO BEDTIME [facility] Ascorbic Acid (Ascorbic Acid 500 Mg Tablet) 500 mg PO DAILY [facility] Aspirin (Aspirin Enteric Coated 81 Mg Tablet.Dr) 81 mg PO DAILY [facility] Atorvastatin Calcium (Atorvastatin Calcium 80 Mg Tablet) 80 mg PO BEDTIME [facility] Cyanocobalamin (Cyanocobalamin (Vitamin B-12) 1,000 Mcg Tablet) 1,000 mcg PO DAILY [facility] Diphenhydramine HCl (Diphenhydramine Hcl 25 Mg Capsule) 25 mg PO DAILY PRN PRN Reason: Itching Enoxaparin Sodium (Enoxaparin Sodium 40 Mg/0.4 Ml Syringe) 40 mg SUBCUT Q24H ERICK Last Admin: 01/26/24 11:25 Dose: 40 mg Ferrous Sulfate (Ferrous Sulfate 324 Mg Tablet.) 324 mg PO DAILY [facility] Fluticasone Propionate (Fluticasone Propionate 250 Mcg Blst.W.Dev) 2 puff INHALE RBID [facility] Sodium Chloride (Ns) 1,000 mls @ 75 mls/hr IVCONT .[id number] [facility] Last Admin: 01/26/24 10:31 Dose: 75 mls/hr Lidocaine (Lidocaine 4 % Patch Adh..Patch) 1 patch TRANSDERMA DAILY [facility]; Protocol Loratadine (Loratadine 10 Mg Tablet) 10 mg PO DAILY [facility] Magnesium Hydroxide (Milk Of Magnesia 30 Ml Oral.Susp) 30 ml PO DAILY PRN PRN Reason: Constipation Metoprolol Tartrate (Metoprolol Tartrate 25 Mg Tablet) 25 mg PO BID [facility]; Protocol Nifedipine (Nifedipine Er 30 Mg Tab.Er.24) 30 mg PO DAILY [facility] Omeprazole (Omeprazole 20 Mg Capsule.) 20 mg PO DAILY@0630 [facility] Ondansetron HCl (Ondansetron Hcl 4 Mg/2 Ml Vial) 4 mg IVPUSH Q8H PRN PRN Reason: Nausea and Vomiting Oxycodone HCl (Oxycodone Hcl Immed Release 5 Mg Tablet) 5 mg PO DAILY PRN PRN Reason: Pain (Scale Score 4-6) Pyridoxine HCl (Pyridoxine Hcl (Vitamin B6) 50 Mg Tablet) 100 mg PO DAILY [facility] Sodium Chloride (0.9 % Sodium Chloride Flush 3 Ml Syringe) 3 ml IVFLUSH QSHIFT [facility] Vitamin D (Cholecalciferol (Vitamin D3) 25 Mcg Tablet) 25 mcg PO DAILY [facility] Vitamin E (Vitamin E (Dl,Tocopheryl Acet) 180 Mg (400 Unit) Capsule) 180 mg PO DAILY [facility] Home Medications ?Medication ?Instructions ?Recorded ?Confirmed ?Last Taken ?Type ferrous sulfate 325 mg (65 mg 325 mg PO DAILY 12/31/20 01/26/24 03/11/23 History iron) tablet fexofenadine 180 mg tablet 180 mg PO BEDTIME 12/31/20 01/26/24 Unknown History vitamin E succinate 268 mg (400 400 unit PO DAILY 12/31/20 01/26/24 09/09/23 History unit) tablet cyanocobalamin (vitamin B-12) 1,000 mcg PO DAILY 02/06/21 01/26/24 09/09/23 History 1,000 mcg tablet pyridoxine (vitamin B6) 100 mg 100 mg PO DAILY 02/06/21 01/26/24 09/09/23 History tablet cholecalciferol (vitamin D3) 25 25 mcg PO DAILY 11/05/21 01/26/24 03/11/23 History mcg (1,000 unit) capsule acetaminophen 500 mg tablet 1,000 mg PO TID Pain 05/18/23 01/26/24 09/09/23 History (Tylenol Extra Strength) albuterol sulfate 90 mcg/actuation 2 puff inhalation Q6H PRN 07/08/23 01/26/24 Unknown History aerosol inhaler (ProAir HFA) Bronchodilation alendronate 70 mg tablet 70 mg PO MO@0900 08/08/23 01/26/24 09/09/23 History ascorbic acid (vitamin C) 500 mg 500 mg PO DAILY 08/08/23 01/26/24 09/09/23 History tablet (Vitamin C) diphenhydramine HCl 25 mg capsule 25 mg PO DAILY PRN Itching 08/08/23 01/26/24 09/09/23 History (Benadryl) glucosam 750 mg-chondroi 100 1 tab PO BID 08/08/23 01/26/24 09/09/23 History mg-hyalur 1.65 mg-CF borate 108 mg tablet ([facility] Z-good [facility]) lidocaine 4 % topical patch 1 patch topical DAILY 08/08/23 01/26/24 09/09/23 History vit C 250 mg-vit E 90 mg-zinc 40 1 tab PO BID 08/08/23 01/26/24 09/09/23 History mg-copper 1 [id number] capsule (PreserVision AREDS-2) calcium carbonate 600 mg-vitamin 1 tab PO BEDTIME 01/16/24 01/26/24 Unknown History D3 5 mcg (200 unit) tablet ceramides 1,3,6-II (CeraVe topical 1 appl topical 5XD PRN SEBORRHEIC 01/16/24 01/26/24 Unknown History cream) KERATOSES doxycycline hyclate 100 mg capsule 100 mg PO DAILY PRN Dental 01/16/24 01/26/24 Unknown History Prophylaxis omeprazole 20 mg capsule,delayed 20 mg PO DAILY@0630 01/16/24 01/26/24 Unknown History release oxycodone 5 mg tablet 5 mg PO DAILY PRN Pain (Scale 01/16/24 01/26/24 Unknown History Score 4-6) Physical Exam 2 Vital Signs: Vital Signs: Last Vital Signs Temp 97.3 F 01/26/24 10:13 Pulse 83 01/26/24 10:13 Resp 20 01/26/24 10:13 BP 135/60 01/26/24 10:13 Pulse Ox 96 01/26/24 10:13 O2 Del Method Room Air 01/26/24 10:13 BMI result Body Mass Index 26.6 Const: General: cooperative and no acute distress GI: Other: Abdomen is soft nondistended nontender. Cholecystostomy tube in place draining a moderate amount of dark bilious thin liquid Results Labs 01/26/24 00:16 01/26/24 10:09 Labs: Abnormal lab results 01/26/24 01/26/24 01/26/24 Range/Units 00:16 10:09 11:20 RBC 2.99 L (4.20-5.50) X10*6/uL Hgb 9.6 L (12.0-16.0) g/dl Hct 28.2 L (37.0-47.0) % Abs Immat Gran (auto) 0.04 H (0.00-0.03) X10*3/uL Sodium 133 L (135-145) mmol/L Chloride 110 H (96-108) mmol/L Carbon Dioxide 21 L 19 L (22-29) mmol/L BUN 17 H (9-16) mg/dL Calcium 8.0 L D (8.4-10.2) mg/dL Magnesium 1.5 L (1.6-2.6) mg/dL AST 33 H (5-31) U/L Total Protein 6.3 L (6.5-8.0) g/dL Albumin 3.4 L (3.5-5.0) g/dL Ur Leukocyte Esterase Small (1+) H (Negative) Short CBC 01/26/24 Range/Units 00:16 WBC 8.9 (4.8-10.8) X10*3/uL Hgb 9.6 L (12.0-16.0) g/dl Hct 28.2 L (37.0-47.0) % Plt Count 240 (160-400) X10*3/uL BMP 01/26/24 01/26/24 00:16 10:09 Sodium 133 L 139 Potassium 3.9 3.8 Chloride 104 110 H Carbon Dioxide 21 L 19 L BUN 17 H 12 Creatinine 1.13 0.79 Calcium 8.7 8.0 L D Liver Function 01/26/24 Range/Units 00:16 Total Bilirubin 0.3 (0.0-1.0) mg/dL Direct Bilirubin 0.1 (0.0-0.5) mg/dL AST 33 H (5-31) U/L ALT 20 (0-31) U/L Alkaline Phosphatase 56 (39-117) U/L Albumin 3.4 L (3.5-5.0) g/dL Urine 01/26/24 Range/Units 11:20 Urine Color Yellow Urine Appearance Clear Urine pH 6.5 (5.0-9.0) Ur Specific [place] 1.015 (1.005-1.025) Urine Protein Negative (Neg-Trace) mg/dL Urine Glucose (UA) Negative (Negative) mg/dL All other labs normal. Imaging Abdomen CT scan report/results: report reviewed and image reviewed CT scan - pelvis: report reviewed and image reviewed Additional studies: Chart - youbeQ - Maps With Life ? Diagnostics Subcategory All Activity ??:?? All Time ??:?? All Subcategories Filter Laboratory Imaging Microbiology Pathology Blood Bank Tests Cardiovascular Other Specialty DATE TYPE STATUS REF RANGE/AUTHOR Hx Today 14:52 Chest X-Ray Signed Ashleigh Hammonds Today 01:57 Abdomen/Pelvis CT Signed Ponce Lara 01/23/24 17:56 Foot X-Ray Signed Ashleigh Lopez 01/20/24 15:[address] Signed Jhon Brewer 01/16/24 14:50 Abdomen Ultrasound Signed Verona Ventura 01/16/24 06:57 Abdomen/Pelvis CT Signed Verona Ventura 08/14/23 11:10 Shoulder X-Ray Signed Shahida Stark 08/08/23 01:07 Abdomen/Pelvis CT Signed Joe Deleon 07/15/23 15:43 Guidance Fluoroscopy Signed Ashleigh Lopez 05/27/23 08:55 Guidance Fluoroscopy Signed Ashleigh Lopez 05/18/23 15:04 Chest X-Ray Signed Gretchen Garcias 02/04/23 12:50 Guidance Fluoroscopy Signed John,Ashleigh 02/04/23 12:45 Guidance Fluoroscopy Signed John,Ashleigh 01/14/23 11:19 Guidance Fluoroscopy Signed John,Ashleigh 12/05/22 12:50 Lumbar Spine X-Ray Signed John,Ashleigh 12/05/22 12:50 Hip/Pelvis X-Ray Signed John,Ashleigh 02/06/22 22:23 Abdomen Ultrasound Signed Jordan Forte 02/06/22 21:11 Abdomen/Pelvis CT Signed Koko French 09/16/21 15:24 Shoulder X-Ray Signed Ashleigh Lopez 04/24/21 13:30 Bone Densitometry Signed Joel Romo 03/08/21 00:00 Diagnostic Report, External [facility] EKG 02/07/21 10:00 Hepatobiliary Scan Nuclear Medicine Signed Koko French 02/06/21 06:10 Abdomen Ultrasound Signed Joe Deleon 02/05/21 22:56 Chest CTA Signed Joe Deleon 02/05/21 16:23 Chest X-Ray Signed Koko French 02/01/21 00:00 Diagnostic Report, External [facility] Echocardiogram 12/08/20 00:00 Diagnostic Report, External Chest 2 Views Frontal and Lat 12/03/20 00:00 Diagnostic Report, External Chest Portable @ [facility] 11/30/20 00:00 Diagnostic Report, External CT TAVR Angio Chest 11/29/20 00:00 Diagnostic Report, External CT TAVR Angio Abdomen and Pelvis 11/25/20 00:00 Diagnostic Report, External Echocardiogram- Complete 11/22/20 10:07 Chest CTA Signed Koko French 11/22/20 09:47 Chest X-Ray Signed Christopher Saini Josephine (Josie) Acute 88, F?1935 MRN#? [id number] ADM MORENITA,?Overflow??Over Bed 03?-OVER3? 5ft 5in 160lb BSA: 1.82m? BMI: 26.6kg/m? Acc#? [id number] Full Code Historical Visits Allergies meperidine (From Demerol) Nausea and Vomiting amoxicillin (AMOXICILLIN) Rash cephalexin Itching erythromycin base Itching meloxicam Abdominal Pain nitrofurantoin (From Macrobid) Rash Penicillins Rash Sulfa (Sulfonamide Antibiotics) (SULFA(SULFONAMIDE ANTIBIOTICS)) Rash tramadol Nausea and Vomiting codeine (CODEINE) Nausea Problems ? ONSET Orthostatic hypotension Elevated liver enzymes Cholecystitis Colitis Acute on chronic anemia Heme positive stool Weakness Acute UTI Chronic diastolic heart failure Greater trochanteric bursitis of left hip Lumbar spondylosis Lumbar back pain with radiculopathy affecting left lower extremity Lumbar degenerative disc disease Bilateral hip pain History of recent fall Sacroiliac joint pain Muscle spasms of neck Chronic right shoulder pain Fatigue Paronychia of fifth toe of right foot Dementia Age-related macular degeneration Biliary colic Eyelid cellulitis Primary osteoarthritis, right shoulder Bursitis of right shoulder Degenerative joint disease of thoracic spine Screening for breast cancer Annual physical exam Age-related osteoporosis without current pathological fracture Coronary artery disease Cholelithiasis Acute respiratory failure with hypoxia Status post laminectomy Pulmonary hypertension Severe mitral valve regurgitation S/P lumbar laminectomy Non-ST elevation MO (NSTEMI) Congestive heart failure Musculoskeletal disorder of neck Pre-operative clearance Acute laryngitis Breast cancer S/P TAVR (transcatheter aortic valve replacement) Coronary artery disease S/P cardiac catheterization Anemia Primary osteoarthritis involving multiple joints Osteoporosis Benign essential HTN Asthma Allergic rhinitis Vital Signs Today 15:07 BP 124/56?L Pulse 84? Resp 16? Temp 97.3 F? O2 Sat 98? Delivery Room Air? Home Meds Not Confirmed Prescription Monitoring Program Total 7.5 MME/Day MEDICATIONS (INSTRUCTIONS) LAST TAKEN Active acetaminophen 500 mg tablet 1,000 mgPOTIDPain Unknown albuterol sulfate 90 mcg/actuation aerosol inhaler 2 [id number] Unknown alendronate 70 mgPOMO@0900 Unknown ??amitriptyline 10 mg tablet ??10 mgPOBEDTIME#90 tabs ascorbic acid (vitamin C) [Vitamin C] 500 mgPODAILY Unknown aspirin 81 mg tablet,delayed release 81 mgPODAILY#90 tabs Unknown atorvastatin 80 mg tablet 80 mgPOBEDTIME#90 tabs Unknown calcium carbonate-vitamin D3 1 tabPOBEDTIME Unknown ceramides 1,3,6-II [CeraVe] 1 [id number] KERATOSES Unknown cholecalciferol (vitamin D3) 25 mcg (1,000 unit) capsule 25 mcgPODAILY Unknown cyanocobalamin (vitamin B-12) 1,000 mcgPODAILY Unknown diphenhydramine HCl [Benadryl] 25 mgPODAILYPRNItching Unknown doxycycline hyclate 100 mgPODAILYPRNDental Prophylaxis Unknown ferrous sulfate 325 mg (65 mg iron) tablet 325 mgPODAILY Unknown fexofenadine 180 mg tablet 180 mgPOBEDTIME Unknown fluticasone propionate 220 mcg/actuation HFA aerosol inhaler 2 [id number] days#12 grams Unknown lidocaine 1 patchtopicalDAILY Unknown metoprolol tartrate 25 mg tablet 25 mgPOBID#180 tabs Unknown [facility] 1 tabPOBID Unknown nifedipine 30 mg tablet,extended release 30 mgPODAILY#90 tabs Unknown omeprazole 20 mgPODAILY@0630 Unknown oxycodone 5 mgPODAILYPRNPain (Scale Score 4-6) Unknown 7.5 MME/Day PreserVision AREDS-2 1 tabPOBID Unknown pyridoxine (vitamin B6) 100 mgPODAILY Unknown vitamin E succinate 268 mg (400 unit) tablet 400 unitPODAILY Unknown DME/Medical Supplies ??blood pressure monitor My Widget No Data to Display Diagnostics Reports Beena Davison?(Lidia)??88??F??1935 ? Allergy/Adv: meperidine, amoxicillin, cephalexin, erythromycin base, meloxicam, nitrofurantoin, Penicillins, Sulfa (Sulfonamide Antibiotics), tramadol, codeine (More??) Close Chest X-Ray (Signed) Ashleigh Hammonds - 01/26/24 Abdomen/Pelvis CT (Signed) Ponce Lara - 01/26/24 Foot X-Ray (Signed) Ashleigh Lopez - 01/23/[address] (Signed) Jhon Brewer - 01/20/24 Abdomen Ultrasound (Signed) Verona Ventura - 01/16/24 Abdomen/Pelvis CT (Signed) Verona Ventura - 01/16/24 Shoulder X-Ray (Signed) Shahida Stark - 08/14/23 Abdomen/Pelvis CT (Signed) Joe Deleon - 08/08/23 Guidance Fluoroscopy (Signed) Ashleigh Lopez - 07/15/23 Guidance Fluoroscopy (Signed) Ashleigh Lopez - 05/27/23 Chest X-Ray (Signed) Gretchen Garcias - 05/18/23 Guidance Fluoroscopy (Signed) John,Ashleigh - 02/04/23 Guidance Fluoroscopy (Signed) John,Ashleigh - 02/04/23 Guidance Fluoroscopy (Signed) John,Ashleigh - 01/14/23 Lumbar Spine X-Ray (Signed) John,Ashleigh - 12/05/22 Hip and Pelvis X-Ray (Signed) John,Ashleigh - 12/05/22 Abdomen Ultrasound (Signed) Jordan Forte - 02/06/22 Abdomen/Pelvis CT (Signed) Ramon Frenchnal - 02/06/22 Shoulder X-Ray (Signed) Ashleigh Lopez - 09/16/21 Bone Densitometry (Signed) Joel Romo - 04/24/21 Diagnostic Report, External 03/08/21 Hepatobiliary Scan Nuclear Medicine (Signed) Gillian,Koko - 02/07/21 Abdomen Ultrasound (Signed) Joe Deleon - 02/06/21 Chest CTA (Signed) Joe Deleon - 02/05/21 Chest X-Ray (Signed) GillianKoko - 02/05/21 Diagnostic Report, External 02/01/21 Diagnostic Report, External 12/08/20 Diagnostic Report, External 12/03/20 Diagnostic Report, External 11/30/20 Diagnostic Report, External 11/29/20 Diagnostic Report, External 11/25/20 Chest CTA (Signed) Gillian,Koko - 11/22/20 Chest X-Ray (Signed) Christopher Saini - 11/22/20 Launch?Image [place] [id number] CT Scan Report Signed Patient: Beena Davison MR#: [id number] : 1935 Acct:[id number] Age/Sex: 88 / F ADM Date: 01/26/24 Loc: HO.ED Attending Dr: Ordering Physician: Erlinda Patricio MD Date of Service: 01/26/24 Procedure(s): CT abdomen pelvis w IV con Accession Number(s): [id number] cc: Erlinda Patricio MD; Michael Shepard MD~ EXAMINATION: CT ABDOMEN AND PELVIS WITH CONTRAST CLINICAL INFORMATION: Reason for Exam s/p percutaneous cholecystostomy, worsening pain COMPARISON: 01/16/2024 TECHNIQUE: Multidetector volumetric images were obtained from the superior aspect of the liver through the pubic symphysis following administration 85 mL of Omnipaque 350 intravenous contrast. Sagittal and coronal reformatted images were obtained on the technologist's workstation. Oral contrast: No This CT examination was performed using dose optimization techniques as appropriate, variously including the following: *Automated exposure control *Adjustment of mA and/or kV according to patient size (this includes techniques or standardized protocols for targeted exams where dose is matched to indication/reason for exam; i.e. extremities or head) *Use of iterative reconstruction technique DLP: 934 mGy-cm FINDINGS: LUNG BASES: Bibasilar subsegmental atelectasis. Coronary artery calcifications. Status post TAVR. LIVER, GALLBLADDER, AND BILIARY TREE: The liver is normal in size, shape, and attenuation. Small hypodense lesion at the dome of the right hepatic lobe, not adequately characterized on this exam. No significant biliary ductal dilatation is present. Cholecystostomy tube terminates in the gallbladder which is physiologically distended and contains gallstones, as well as demonstrating wall thickening. A couple tiny calcifications are noted along the common bile duct which may represent choledocholithiasis. PANCREAS: Moderately atrophic. Redemonstrated small hypodensity in the pancreas, unchanged from prior. SPLEEN: Unremarkable. ADRENAL GLANDS: Unremarkable. KIDNEYS AND URETERS: Bilateral nephrograms are symmetric. No hydronephrosis or obstructing calculus identified. Left kidney is noted to be atrophic. BLADDER: Unremarkable. GASTROINTESTINAL TRACT: No evidence of bowel obstruction or significant wall thickening. The appendix is unremarkable. No free fluid or free air is seen. ABDOMINAL WALL: No significant hernia is appreciated. LYMPH NODES: Normal. VASCULAR: There is atherosclerotic calcification along the aorta and iliac arteries. PELVIC VISCERA: Coarsely calcified fibroid noted. OSSEOUS STRUCTURES: Multilevel degenerative changes in the spine. Vertebral body augmentation cement at L1. Left sacroiliac joint hardware is present. CT/CT abdomen pelvis w IV con IMPRESSION: Cholecystostomy tube terminates in the gallbladder which is physiologically distended and contains gallstones, as well as demonstrating wall thickening. A couple tiny calcifications along the common bile duct may represent choledocholithiasis. No significant ductal dilation. Dictated By: Ponce Lara MD Signed By: <Electronically signed by Ponce Lara MD in OV> 01/26/24 0420 DD/ 0157 TD/TT: Biology Tutor: LESLI Assessment and Plan (1) Cholecystitis: Status: Acute Plan Patient with multiple medical issues just recently discharged after being here and treated for colitis and cholecystitis with percutaneous drainage secondary to her multiple medical issues which make her higher risk for more invasive procedures. Surgical consultation being requested as she has her cholecystostomy tube in place and seems to be functioning well. I do not think there is anything significant going on with her intra-abdominal pathology to cause her symptoms last night and her return to the hospital. Plan to continue with her cholecystostomy tube to drainage and follow up as an outpatient. She may at some point benefit from cholangiogram via the tube especially her output continues to be high to rule out any common bile duct obstruction. Procedures Date of Service Date of Service: 01/26/24
--- NOTE | 2024-01-26 14:27 | PC.NURSE ---
Patient assisted to commode and was able to urinate but also had a bowel movement and this nurse was unable to obtain output.
[2024-01-26 14:53] LABS: Magnesium 1.5 mg/dL (1.6-2.6)
[2024-01-26] MEDS: Atorvastatin Calcium 80 MG TABLET PO (21:18)
[2024-01-26] MEDS: Metoprolol Tartrate 25 MG TABLET PO (21:18)
[2024-01-26] MEDS: Amitriptyline HCl 10 MG TABLET PO (21:18)
[2024-01-26] MEDS: oxyCODONE HCl Immed Release 5 MG TABLET PO (21:27)
[2024-01-27] VITALS (10 sets, daily range): BP systolic 124–172; BP diastolic 60–92; PULSE 62–80; RESP 16–19; TEMP 36.2–36.7; O2SAT 92–97
[2024-01-27 05:41] LABS: MANUAL DIFF FLAG NO
[2024-01-27 05:50] LABS: Basophils Absolute Auto 0.1 X10*3/uL (0.0-0.2); Basophils Percent Auto 0.9 % (0-2); Eosinophils Absolute Auto 0.2 X10*3/uL (0.0-0.4); Eosinophils Percent Auto 3.5 % (0-4); Hematocrit 25.5 % (37.0-47.0); Hemoglobin 8.7 g/dl (12.0-16.0); Imm Gran Abs Auto 0.04 X10*3/uL (0.00-0.03); Imm Gran Pct Auto 0.6 % (0.0-0.4); Lymphocytes Absolute Auto 2.6 X10*3/uL (1.2-4.9); Lymphocytes Percent Auto 38.6 % (20-40); Mean Corpuscular HGB Conc 34.1 g/dl (31.0-35.0); Mean Corpuscular Hemoglobin 32.5 pg (27.0-33.0); Mean Corpuscular Volume 95.1 fL (80.0-98.0); Mean Platelet Volume 10.2 fL (9.4-12.3); Monocytes Absolute Auto 0.5 X10*3/uL (0.1-1.2); Monocytes Percent Auto 7.5 % (2-11); Neutrophils Absolute Auto 3.3 x10*3/uL (2.0-8.3); Neutrophils Percent Auto 48.9 % (45-73); Platelet Count 236 X10*3/uL (160-400); Red Blood Count 2.68 X10*6/uL (4.20-5.50); Red Cell Distribution Width 13.8 % (11.0-16.0); White Blood Count 6.8 X10*3/uL (4.8-10.8)
[2024-01-27 06:04] LABS: Anion Gap 13 (12-20); Blood Urea Nitrogen 8 mg/dL (9-16); Carbon Dioxide 20 mmol/L (22-29); Chloride 110 mmol/L (96-108); Estimated Glomerular Filt Rate > 60; Glucose Random 93 mg/dL (60-115); Potassium 3.8 mmol/L (3.3-5.1); Sodium 139 mmol/L (135-145)
[2024-01-27] MEDS: Fluticasone Propionate 250 MCG BLST.W.DEV 2 PUFF INHALE ×2 (07:29→19:17)
[2024-01-27] MEDS: Metoprolol Tartrate 25 MG TABLET PO ×2 (09:29→20:54)
[2024-01-27] MEDS: Vitamin E (Dl,Tocopheryl Acet) 180 MG (400 UNIT) CAPSULE PO (09:29)
[2024-01-27] MEDS: Ferrous Sulfate 324 MG TABLET.DR PO (09:29)
[2024-01-27] MEDS: Ascorbic Acid 500 MG TABLET PO (09:29)
[2024-01-27] MEDS: Loratadine 10 MG TABLET PO (09:29)
[2024-01-27] MEDS: Cyanocobalamin (Vitamin B-12) 1,000 MCG TABLET 1000 MCG PO (09:31)
[2024-01-27] MEDS: Cholecalciferol (Vitamin D3) 25 MCG TABLET PO (09:31)
--- NOTE | 2024-01-27 09:31 | MHC.CM.PN ---
RO DELIVERED. PT LIVES AT [facility]. PT USES A WALKER FOR MAJOR MOBILITY. +HCP ON FILE. [place] [facility] [place] RETURN [facility] AT DC AND RESUME [facility]. DAUGHTER WILL TRANSPORT. CM WILL CONTINUE TO FOLLOW FOR ANY CHANGE TO DC PLAN/NEEDS.
[2024-01-27] MEDS: NIFEdipine ER 30 MG TAB.ER.24 PO (09:32)
[2024-01-27] MEDS: Pyridoxine HCl (Vitamin B6) 50 MG TABLET 100 MG PO (09:32)
[2024-01-27] MEDS: Aspirin Enteric Coated 81 MG TABLET.DR PO (09:32)
[2024-01-27] MEDS: Enoxaparin Sodium 40 MG/0.4 ML SYRINGE SUBCUT (09:33)
--- NOTE | 2024-01-27 09:36 | PM.PNGS ---
Subjective Subjective Date of Service: 01/27/24 Interval history: Patient well known to me from recent hospital admission. No abdominal complaints. Tolerating soft solids/jello Physical Exam Vital Signs: Vital Signs: Last Vital Signs Temp 98.1 F 01/27/24 06:58 Pulse 68 01/27/24 07:33 Resp 18 01/27/24 07:33 BP 145/60 H 01/27/24 06:58 Pulse Ox 96 01/27/24 06:58 O2 Del Method Room Air 01/27/24 06:58 BMI result Body Mass Index 29.7 GI: Other: Abdomen is soft, benign. Gallbladder tube functioning well with copious bilious drainage in retrieval bag Objective Data Active Medications Acetaminophen (Acetaminophen 325 Mg Tablet) 650 mg PO Q6H PRN PRN Reason: Pain, Mild (Pain Scale 1-3) Albuterol Sulfate (Albuterol Sulfate 90 Mcg 8 Gm Inhaler) 2 puff INHALE Q6H PRN PRN Reason: Bronchodilation Amitriptyline HCl (Amitriptyline Hcl 10 Mg Tablet) 10 mg PO BEDTIME [facility] Last Admin: 01/26/24 21:18 Dose: 10 mg Documented By: BEE Ascorbic Acid (Ascorbic Acid 500 Mg Tablet) 500 mg PO DAILY [facility] Aspirin (Aspirin Enteric Coated 81 Mg Tablet.) 81 mg PO DAILY [facility] Atorvastatin Calcium (Atorvastatin Calcium 80 Mg Tablet) 80 mg PO BEDTIME [facility] Last Admin: 01/26/24 21:18 Dose: 80 mg Documented By: BEE Cyanocobalamin (Cyanocobalamin (Vitamin B-12) 1,000 Mcg Tablet) 1,000 mcg PO DAILY [facility] Diphenhydramine HCl (Diphenhydramine Hcl 25 Mg Capsule) 25 mg PO DAILY PRN PRN Reason: Itching Enoxaparin Sodium (Enoxaparin Sodium 40 Mg/0.4 Ml Syringe) 40 mg SUBCUT Q24H [facility] Last Admin: 01/26/24 11:25 Dose: 40 mg Documented By: AMINA Ferrous Sulfate (Ferrous Sulfate 324 Mg Tablet.) 324 mg PO DAILY [facility] Fluticasone Propionate (Fluticasone Propionate 250 Mcg Blst.W.Dev) 2 puff INHALE RBID [facility] Last Admin: 01/27/24 07:29 Dose: 2 puff Documented By: CLEO Sodium Chloride (Ns) 1,000 mls @ 75 mls/hr IVCONT .[id number] [facility] Last Admin: 01/26/24 22:53 Dose: 75 mls/hr Documented By: BEE Lidocaine (Lidocaine 4 % Patch Adh..Patch) 1 patch TRANSDERMA DAILY [facility]; Protocol Loratadine (Loratadine 10 Mg Tablet) 10 mg PO DAILY [facility] Magnesium Hydroxide (Milk Of Magnesia 30 Ml Oral.Susp) 30 ml PO DAILY PRN PRN Reason: Constipation Metoprolol Tartrate (Metoprolol Tartrate 25 Mg Tablet) 25 mg PO BID [facility]; Protocol Last Admin: 01/26/24 21:18 Dose: 25 mg Documented By: BEE Nifedipine (Nifedipine Er 30 Mg Tab.Er.24) 30 mg PO DAILY [facility] Omeprazole (Omeprazole 20 Mg Capsule.Dr) 20 mg PO DAILY@0630 [facility] Last Admin: 01/27/24 06:01 Dose: Not Given Documented By: BEE Non-Admin Reason: Patient Refused Ondansetron HCl (Ondansetron Hcl 4 Mg/2 Ml Vial) 4 mg IVPUSH Q8H PRN PRN Reason: Nausea and Vomiting Oxycodone HCl (Oxycodone Hcl Immed Release 5 Mg Tablet) 5 mg PO DAILY PRN PRN Reason: Pain (Scale Score 4-6) Last Admin: 01/26/24 21:27 Dose: 5 mg Documented By: BEE Pyridoxine HCl (Pyridoxine Hcl (Vitamin B6) 50 Mg Tablet) 100 mg PO DAILY [facility] Sodium Chloride (0.9 % Sodium Chloride Flush 3 Ml Syringe) 3 ml IVFLUSH QSHIFT [facility] Last Admin: 01/27/24 00:28 Dose: Not Given Documented By: BEE Non-Admin Reason: IV Running Vitamin D (Cholecalciferol (Vitamin D3) 25 Mcg Tablet) 25 mcg PO DAILY [facility] Vitamin E (Vitamin E (Dl,Tocopheryl Acet) 180 Mg (400 Unit) Capsule) 180 mg PO DAILY [facility] Labs 01/27/24 05:03 01/27/24 05:03 Labs: Laboratory Results - last 24 hr 01/26/24 01/26/24 01/27/24 10:09 11:20 05:03 MCV 95.1 MCH 32.5 MCHC 34.1 RDW 13.8 Plt Count 236 MPV 10.2 Immature Gran % (Auto) 0.6 H Neut % (Auto) 48.9 Lymph % (Auto) 38.6 Dare % (Auto) 7.5 Eos % (Auto) 3.5 Baso % (Auto) 0.9 Lymph # (Auto) 2.6 Dare # (Auto) 0.5 Eos # (Auto) 0.2 Baso # (Auto) 0.1 Abs Immat Gran (auto) 0.04 H Absolute Neuts (auto) 3.3 Absolute Nucleated RBC 0.000 Nucleated RBC % (auto) 0.0 Anion Gap 14 13 Estim Creat Clear Calc 50.1 57.0 Estimated GFR > 60 > 60 Random Glucose 99 93 Calcium 8.0 L D 8.0 L Magnesium 1.5 L Urine Color Yellow Urine Appearance Clear Urine pH 6.5 Ur Specific Robson 1.015 Urine Protein Negative Urine Glucose (UA) Negative Urine Ketones Negative Urine Blood Negative Urine Nitrite Negative Ur Leukocyte Esterase Small (1+) H Urine RBC 0-2 Urine WBC 0-5 Ur Squamous Epith Cells 0-2 Urine Bacteria None Seen Hyaline Casts 0-2 Microbiology Microbiology Results: Microbiology 01/26/24 01:11 Blood Culture - Preliminary Blood - Venous No growth after 24 hours. 01/26/24 00:17 Blood Culture - Preliminary Blood - Venous No growth after 24 hours. Procedures Date of Service Date of Service: 01/27/24 Progress Note: A&P Assessment and plan (1) History of acute cholecystitis: Status: Acute Plan Discussed with the hospitalist team that patient will need this G-tube for least 6 weeks time which will then be followed by drain study to document patency of cystic duct and episode been can be removed. This can be done as an outpatient. I can see her in the few weeks time for arrangements of this Time Spent With Patient Time: Total time managing care of this patient today ____ minutes. Quality Stroke Does the patient have a stroke diagnosis?: No VTE Prior VTE?: No VTE Risk Level:: Medical - moderate - high VTE Device Contraindication: Treatment Not Indicated VTE Drug Contraindication: N/A - Med Ordered
[2024-01-27] MEDS: Lidocaine 4 % Patch ADH..PATCH 1 PATCH TRANSDERMA (09:39)
--- NOTE | 2024-01-27 10:23 | P.PNIM_ITS ---
Subjective Subjective Date of Service: 01/27/24 Review of Systems Follow up orthostatic hypotension no dizziness, nausea or vomiting Physical Exam 2 Vital Signs: Vital Signs: Last Vital Signs Temp 98.1 F 01/27/24 06:58 Pulse 78 01/27/24 09:29 Resp 18 01/27/24 07:33 BP 136/87 01/27/24 09:32 Pulse Ox 96 01/27/24 06:58 O2 Del Method Room Air 01/27/24 06:58 BMI result Body Mass Index 29.7 Appearing in no acute distress lung sounds are clear to auscultation heart regular rate rhythm, clear S1, S2 positive bowel sounds, abdomen is soft, nontender neuro patient is alert x3, no focal deficits Objective Data Active Medications Acetaminophen (Acetaminophen 325 Mg Tablet) 650 mg PO Q6H PRN PRN Reason: Pain, Mild (Pain Scale 1-3) Albuterol Sulfate (Albuterol Sulfate 90 Mcg 8 Gm Inhaler) 2 puff INHALE Q6H PRN PRN Reason: Bronchodilation Amitriptyline HCl (Amitriptyline Hcl 10 Mg Tablet) 10 mg PO BEDTIME [facility] Last Admin: 01/26/24 21:18 Dose: 10 mg Documented By: BEE Ascorbic Acid (Ascorbic Acid 500 Mg Tablet) 500 mg PO DAILY [facility] Last Admin: 01/27/24 09:29 Dose: 500 mg Documented By: TONY Aspirin (Aspirin Enteric Coated 81 Mg Tablet.) 81 mg PO DAILY [facility] Last Admin: 01/27/24 09:32 Dose: 81 mg Documented By: TONY Atorvastatin Calcium (Atorvastatin Calcium 80 Mg Tablet) 80 mg PO BEDTIME [facility] Last Admin: 01/26/24 21:18 Dose: 80 mg Documented By: BEE Cyanocobalamin (Cyanocobalamin (Vitamin B-12) 1,000 Mcg Tablet) 1,000 mcg PO DAILY [facility] Last Admin: 01/27/24 09:31 Dose: 1,000 mcg Documented By: TONY Diphenhydramine HCl (Diphenhydramine Hcl 25 Mg Capsule) 25 mg PO DAILY PRN PRN Reason: Itching Enoxaparin Sodium (Enoxaparin Sodium 40 Mg/0.4 Ml Syringe) 40 mg SUBCUT Q24H [facility] Last Admin: 01/27/24 09:33 Dose: 40 mg Documented By: TONY Ferrous Sulfate (Ferrous Sulfate 324 Mg Tablet.) 324 mg PO DAILY [facility] Last Admin: 01/27/24 09:29 Dose: 324 mg Documented By: TONY Fluticasone Propionate (Fluticasone Propionate 250 Mcg Blst.W.Dev) 2 puff INHALE RBID [facility] Last Admin: 01/27/24 07:29 Dose: 2 puff Documented By: CLEO Sodium Chloride (Ns) 1,000 mls @ 75 mls/hr IVCONT .[id number] [facility] Last Admin: 01/26/24 22:53 Dose: 75 mls/hr Documented By: BEE Lidocaine (Lidocaine 4 % Patch Adh..Patch) 1 patch TRANSDERMA DAILY [facility]; Protocol Last Admin: 01/27/24 09:39 Dose: 1 patch Documented By: TONY Loratadine (Loratadine 10 Mg Tablet) 10 mg PO DAILY [facility] Last Admin: 01/27/24 09:29 Dose: 10 mg Documented By: TONY Magnesium Hydroxide (Milk Of Magnesia 30 Ml Oral.Susp) 30 ml PO DAILY PRN PRN Reason: Constipation Metoprolol Tartrate (Metoprolol Tartrate 25 Mg Tablet) 25 mg PO BID [facility]; Protocol Last Admin: 01/27/24 09:29 Dose: 25 mg Documented By: TONY Nifedipine (Nifedipine Er 30 Mg Tab.Er.24) 30 mg PO DAILY [facility] Last Admin: 01/27/24 09:32 Dose: 30 mg Documented By: TONY Omeprazole (Omeprazole 20 Mg Capsule.) 20 mg PO DAILY@0630 [facility] Last Admin: 01/27/24 06:01 Dose: Not Given Documented By: BEE Non-Admin Reason: Patient Refused Ondansetron HCl (Ondansetron Hcl 4 Mg/2 Ml Vial) 4 mg IVPUSH Q8H PRN PRN Reason: Nausea and Vomiting Oxycodone HCl (Oxycodone Hcl Immed Release 5 Mg Tablet) 5 mg PO DAILY PRN PRN Reason: Pain (Scale Score 4-6) Last Admin: 01/26/24 21:27 Dose: 5 mg Documented By: BEE Pyridoxine HCl (Pyridoxine Hcl (Vitamin B6) 50 Mg Tablet) 100 mg PO DAILY [facility] Last Admin: 01/27/24 09:32 Dose: 100 mg Documented By: TONY Sodium Chloride (0.9 % Sodium Chloride Flush 3 Ml Syringe) 3 ml IVFLUSH QSHIFT [facility] Last Admin: 01/27/24 09:47 Dose: Not Given Documented By: TONY Non-Admin Reason: IV Running Vitamin D (Cholecalciferol (Vitamin D3) 25 Mcg Tablet) 25 mcg PO DAILY [facility] Last Admin: 01/27/24 09:31 Dose: 25 mcg Documented By: TONY Vitamin E (Vitamin E (Dl,Tocopheryl Acet) 180 Mg (400 Unit) Capsule) 180 mg PO DAILY [facility] Last Admin: 01/27/24 09:29 Dose: 180 mg Documented By: TONY Labs 01/27/24 05:03 01/27/24 05:03 Labs: Laboratory Results - last 24 hr 01/26/24 01/26/24 01/27/24 10:09 11:20 05:03 MCV 95.1 MCH 32.5 MCHC 34.1 RDW 13.8 Plt Count 236 MPV 10.2 Immature Gran % (Auto) 0.6 H Neut % (Auto) 48.9 Lymph % (Auto) 38.6 [place] % (Auto) 7.5 Eos % (Auto) 3.5 Baso % (Auto) 0.9 Lymph # (Auto) 2.6 [place] # (Auto) 0.5 Eos # (Auto) 0.2 Baso # (Auto) 0.1 Abs Immat Gran (auto) 0.04 H Absolute Neuts (auto) 3.3 Absolute Nucleated RBC 0.000 Nucleated RBC % (auto) 0.0 Anion Gap 14 13 Estim Creat Clear Calc 50.1 57.0 Estimated GFR > 60 > 60 Random Glucose 99 93 Calcium 8.0 L D 8.0 L Magnesium 1.5 L Urine Color Yellow Urine Appearance Clear Urine pH 6.5 Ur Specific Daisy 1.015 Urine Protein Negative Urine Glucose (UA) Negative Urine Ketones Negative Urine Blood Negative Urine Nitrite Negative Ur Leukocyte Esterase Small (1+) H Urine RBC 0-2 Urine WBC 0-5 Ur Squamous Epith Cells 0-2 Urine Bacteria None Seen Hyaline Casts 0-2 Microbiology Microbiology Results: Microbiology 01/26/24 01:11 Blood Culture - Preliminary Blood - Venous No growth after 24 hours. 01/26/24 00:17 Blood Culture - Preliminary Blood - Venous No growth after 24 hours. Assessment and Plan (1) Orthostatic hypotension: Status: Acute Plan 88-year-old female with a PMH significant for?HFpEF, aortic valve replacement s/p TAVR, mild dementia, hx of breast cancer, CAD, osteoporosis, asthma, lifelong anemia, and macular degeneration who presented to the ED last night for evaluation of dizziness. She was discharged yesterday from our facility after being treated with pancolitis and cholecystitis s/p percutaenous cholecystostomy tube placement by IR. She was considered for colonoscopy but declined and was considered suboptimately candidate given age and comorbidities. She did complete course of antibiotics. She will be observed overnight for orthostatic hypotension Orthostatic hypotension suspect related to suboptimal PO intake s/p perc cholecystostomy and pancolitis that is now resolved Continue gentle IVF orthostatic vs daily Cholelithiasis with recent cholecystitis s/p perc juan manuel drain placed by IR 01/20/24 general surgery consult> drain should remain for total 6 weeks and pt to f/u with Dr. Keith in his office CAD Continue aspirin, statin HTN continue metoprolol, nifedipine Asthma Not in acute exacerbation Continue home inhalers Chronic anemia H&H at baseline Continue iron supplementation Follow CBC dvt prophylaxis- lovenox Attending Dr. Jessica full code Quality Stroke Does the patient have a stroke diagnosis?: No VTE Prior VTE?: No VTE Risk Level:: Medical - moderate - high VTE Device Contraindication: Treatment Not Indicated VTE Drug Contraindication: N/A - Med Ordered
[2024-01-27] MEDS: 0.9 % Sodium Chloride 1,000 ML 75 ML IVCONT (13:01)
[2024-01-27] MEDS: oxyCODONE HCl Immed Release 5 MG TABLET PO (13:33)
[2024-01-27] MEDS: Amitriptyline HCl 10 MG TABLET PO (20:53)
[2024-01-27] MEDS: Atorvastatin Calcium 80 MG TABLET PO (20:54)
[2024-01-27] MEDS: 0.9 % Sodium Chloride Flush 3 ML SYRINGE IVFLUSH (20:55)
[2024-01-28] VITALS (11 sets, daily range): BP systolic 104–147; BP diastolic 60–69; PULSE 61–78; RESP 16–18; TEMP 36.1–36.4; O2SAT 95–97
[2024-01-28] MEDS: 0.9 % Sodium Chloride 1,000 ML 75 ML IVCONT (02:00)
[2024-01-28] MEDS: Omeprazole 20 MG CAPSULE.DR PO (05:49)
[2024-01-28] MEDS: Fluticasone Propionate 250 MCG BLST.W.DEV 2 PUFF INHALE ×2 (07:31→19:17)
[2024-01-28] MEDS: Aspirin Enteric Coated 81 MG TABLET.DR PO (08:45)
[2024-01-28] MEDS: Vitamin E (Dl,Tocopheryl Acet) 180 MG (400 UNIT) CAPSULE PO (08:45)
[2024-01-28] MEDS: Cyanocobalamin (Vitamin B-12) 1,000 MCG TABLET 1000 MCG PO (08:45)
[2024-01-28] MEDS: Cholecalciferol (Vitamin D3) 25 MCG TABLET PO (08:45)
[2024-01-28] MEDS: Pyridoxine HCl (Vitamin B6) 50 MG TABLET 100 MG PO (08:45)
[2024-01-28] MEDS: Loratadine 10 MG TABLET PO (08:45)
[2024-01-28] MEDS: NIFEdipine ER 30 MG TAB.ER.24 PO (08:45)
[2024-01-28] MEDS: Ascorbic Acid 500 MG TABLET PO (08:45)
[2024-01-28] MEDS: Ferrous Sulfate 324 MG TABLET.DR PO (08:45)
[2024-01-28] MEDS: Metoprolol Tartrate 25 MG TABLET PO ×2 (08:45→20:28)
[2024-01-28] MEDS: 0.9 % Sodium Chloride Flush 3 ML SYRINGE IVFLUSH ×3 (08:46→20:55)
[2024-01-28] MEDS: Lidocaine 4 % Patch ADH..PATCH 1 PATCH TRANSDERMA (08:46)
[2024-01-28] MEDS: Enoxaparin Sodium 40 MG/0.4 ML SYRINGE SUBCUT (11:25)
[2024-01-28] MEDS: oxyCODONE HCl Immed Release 5 MG TABLET PO (11:44)
--- NOTE | 2024-01-28 12:03 | P.PNIM_ITS ---
Subjective Subjective Date of Service: 01/28/24 Interval History: Seen and examined this morning Follow-up for orthostatic hypotension No complaints this morning Review of Systems Review of Systems: Yes all other systems are reviewed and are negative Physical Exam 2 Vital Signs: Vital Signs: Last Vital Signs Temp 97.5 F 01/28/24 07:55 Pulse 78 01/28/24 10:37 Resp 16 01/28/24 07:55 BP 104/63 01/28/24 10:37 Pulse Ox 97 01/28/24 07:55 O2 Del Method Room Air 01/28/24 07:55 BMI result Body Mass Index 29.7 Const: General: cooperative, comfortable, no acute distress, alert and awake Nutritional Appearance: average body habitus Resp: Effort & Inspection: normal respiratory effort and able to speak in complete sentences Cardio: Rate: regular rate GI: Other: Cholecystostomy tube with scant dark drainage Neuro: Other: Grossly nonfocal General: moves all extremities Objective Data Active Medications Acetaminophen (Acetaminophen 325 Mg Tablet) 650 mg PO Q6H PRN PRN Reason: Pain, Mild (Pain Scale 1-3) Albuterol Sulfate (Albuterol Sulfate 90 Mcg 8 Gm Inhaler) 2 puff INHALE Q6H PRN PRN Reason: Bronchodilation Amitriptyline HCl (Amitriptyline Hcl 10 Mg Tablet) 10 mg PO BEDTIME [facility] Last Admin: 01/27/24 20:53 Dose: 10 mg Documented By: KAUR Ascorbic Acid (Ascorbic Acid 500 Mg Tablet) 500 mg PO DAILY [facility] Last Admin: 01/28/24 08:45 Dose: 500 mg Documented By: LALA Aspirin (Aspirin Enteric Coated 81 Mg Tablet.) 81 mg PO DAILY [facility] Last Admin: 01/28/24 08:45 Dose: 81 mg Documented By: LALA Atorvastatin Calcium (Atorvastatin Calcium 80 Mg Tablet) 80 mg PO BEDTIME [facility] Last Admin: 01/27/24 20:54 Dose: 80 mg Documented By: KAUR Cyanocobalamin (Cyanocobalamin (Vitamin B-12) 1,000 Mcg Tablet) 1,000 mcg PO DAILY [facility] Last Admin: 01/28/24 08:45 Dose: 1,000 mcg Documented By: LALA Diphenhydramine HCl (Diphenhydramine Hcl 25 Mg Capsule) 25 mg PO DAILY PRN PRN Reason: Itching Enoxaparin Sodium (Enoxaparin Sodium 40 Mg/0.4 Ml Syringe) 40 mg SUBCUT Q24H [facility] Last Admin: 01/28/24 11:25 Dose: 40 mg Documented By: LALA Ferrous Sulfate (Ferrous Sulfate 324 Mg Tablet.) 324 mg PO DAILY [facility] Last Admin: 01/28/24 08:45 Dose: 324 mg Documented By: LALA Fluticasone Propionate (Fluticasone Propionate 250 Mcg Blst.W.Dev) 2 puff INHALE RBID [facility] Last Admin: 01/28/24 07:31 Dose: 2 puff Documented By: CLEO Lidocaine (Lidocaine 4 % Patch Adh..Patch) 1 patch TRANSDERMA DAILY [facility]; Protocol Last Admin: 01/28/24 08:46 Dose: 1 patch Documented By: LALA Loratadine (Loratadine 10 Mg Tablet) 10 mg PO DAILY [facility] Last Admin: 01/28/24 08:45 Dose: 10 mg Documented By: LALA Magnesium Hydroxide (Milk Of Magnesia 30 Ml Oral.Susp) 30 ml PO DAILY PRN PRN Reason: Constipation Metoprolol Tartrate (Metoprolol Tartrate 25 Mg Tablet) 25 mg PO BID [facility]; Protocol Last Admin: 01/28/24 08:45 Dose: 25 mg Documented By: LALA Nifedipine (Nifedipine Er 30 Mg Tab.Er.24) 30 mg PO DAILY [facility] Last Admin: 01/28/24 08:45 Dose: 30 mg Documented By: LALA Omeprazole (Omeprazole 20 Mg Capsule.) 20 mg PO DAILY@0630 [facility] Last Admin: 01/28/24 05:49 Dose: 20 mg Documented By: KAUR Ondansetron HCl (Ondansetron Hcl 4 Mg/2 Ml Vial) 4 mg IVPUSH Q8H PRN PRN Reason: Nausea and Vomiting Oxycodone HCl (Oxycodone Hcl Immed Release 5 Mg Tablet) 5 mg PO DAILY PRN PRN Reason: Pain (Scale Score 4-6) Last Admin: 01/28/24 11:44 Dose: 5 mg Documented By: LALA Pyridoxine HCl (Pyridoxine Hcl (Vitamin B6) 50 Mg Tablet) 100 mg PO DAILY [facility] Last Admin: 01/28/24 08:45 Dose: 100 mg Documented By: LALA Sodium Chloride (0.9 % Sodium Chloride Flush 3 Ml Syringe) 3 ml IVFLUSH QSHIFT [facility] Last Admin: 01/28/24 08:46 Dose: 3 ml Documented By: LALA Vitamin D (Cholecalciferol (Vitamin D3) 25 Mcg Tablet) 25 mcg PO DAILY [facility] Last Admin: 01/28/24 08:45 Dose: 25 mcg Documented By: LALA Vitamin E (Vitamin E (Dl,Tocopheryl Acet) 180 Mg (400 Unit) Capsule) 180 mg PO DAILY [facility] Last Admin: 01/28/24 08:45 Dose: 180 mg Documented By: LALA Labs 01/27/24 05:03 01/27/24 05:03 Microbiology Microbiology Results: Microbiology 01/26/24 Unknown Urine Culture - Final Urine Catheterized - Straight Catheter 01/26/24 01:11 Blood Culture - Preliminary Blood - Venous No growth after 48 hours. 01/26/24 00:17 Blood Culture - Preliminary Blood - Venous No growth after 48 hours. Assessment and Plan (1) Orthostatic hypotension: Status: Acute Plan 88-year-old female with a PMH significant for?HFpEF, aortic valve replacement s/p TAVR, mild dementia, hx of breast cancer, CAD, osteoporosis, asthma, lifelong anemia, and macular degeneration who presented to the ED last night for evaluation of dizziness. She was discharged yesterday from our facility after being treated with pancolitis and cholecystitis s/p percutaenous cholecystostomy tube placement by IR. She was considered for colonoscopy but declined and was considered suboptimately candidate given age and comorbidities. She did complete course of antibiotics. She will be observed overnight for orthostatic hypotension Orthostatic hypotension suspect related to suboptimal PO intake s/p perc cholecystostomy and pancolitis that is now resolved Remains orthostatic asymptomatic will stop nifedipine Stop IV fluid PT eval pending Cholelithiasis with recent cholecystitis s/p perc juan manuel drain placed by IR 01/20/24 general surgery consult> drain should remain for total 6 weeks and pt to f/u with Dr. Keith in his office Hypomagnesemia Repeat magnesium level pending Replace as needed CAD Continue aspirin, statin HTN continue metoprolol stop nifedipine Asthma Not in acute exacerbation Continue home inhalers Chronic anemia H&H at baseline Continue iron supplementation Follow CBC dvt prophylaxis- lovenox Attending Dr. Jessica full code Quality Stroke Does the patient have a stroke diagnosis?: No VTE Prior VTE?: No VTE Risk Level:: Medical - moderate - high VTE Device Contraindication: Treatment Not Indicated VTE Drug Contraindication: N/A - Med Ordered
[2024-01-28 12:50] LABS: Magnesium 1.7 mg/dL (1.6-2.6)
[2024-01-28] MEDS: diphenhydrAMINE HCL 25 MG CAPSULE PO (17:23)
[2024-01-28] MEDS: Amitriptyline HCl 10 MG TABLET PO (20:28)
[2024-01-28] MEDS: Atorvastatin Calcium 80 MG TABLET PO (20:28)
[2024-01-28] MEDS: Acetaminophen 325 MG TABLET 650 MG PO (20:53)
[2024-01-29] VITALS (8 sets, daily range): BP systolic 117–159; BP diastolic 60–68; PULSE 67–75; RESP 15–18; TEMP 36.1–36.8; O2SAT 95–98
[2024-01-29] MEDS: Omeprazole 20 MG CAPSULE.DR PO (05:41)
[2024-01-29] MEDS: Fluticasone Propionate 250 MCG BLST.W.DEV 2 PUFF INHALE ×2 (08:06→19:01)
[2024-01-29] MEDS: 0.9 % Sodium Chloride Flush 3 ML SYRINGE IVFLUSH ×4 (09:03→20:45)
[2024-01-29] MEDS: Enoxaparin Sodium 40 MG/0.4 ML SYRINGE SUBCUT (09:36)
[2024-01-29] MEDS: Metoprolol Tartrate 25 MG TABLET PO ×2 (09:37→20:43)
[2024-01-29] MEDS: Cholecalciferol (Vitamin D3) 25 MCG TABLET PO (09:37)
[2024-01-29] MEDS: Ferrous Sulfate 324 MG TABLET.DR PO (09:37)
[2024-01-29] MEDS: Vitamin E (Dl,Tocopheryl Acet) 180 MG (400 UNIT) CAPSULE PO (09:37)
[2024-01-29] MEDS: Aspirin Enteric Coated 81 MG TABLET.DR PO (09:37)
[2024-01-29] MEDS: Cyanocobalamin (Vitamin B-12) 1,000 MCG TABLET 1000 MCG PO (09:38)
[2024-01-29] MEDS: Loratadine 10 MG TABLET PO (09:38)
[2024-01-29] MEDS: Lidocaine 4 % Patch ADH..PATCH 1 PATCH TRANSDERMA (09:38)
[2024-01-29] MEDS: Ascorbic Acid 500 MG TABLET PO (09:38)
--- NOTE | 2024-01-29 11:36 | P.DS_ITS ---
DS: Providers Provider Date of Service: 01/29/24 Date of admission: 01/26/24 09:39 Date of discharge: 01/29/24 Primary care physician: Michael Shepard MD Consults: 01/26/24 09:44 Consult to General Surgery Routine Consulting Provider: [facility] [place] General Surgeons Reason for consultation: s/p perc juan manuel... here with orthostatic hypotension Attending physician on discharge: Gurpreet Jessica Discharging clinician: Arlette Massey DS: Diagnosis Discharge Diagnosis (1) Orthostatic hypotension: Status: Acute DS: Summary Hospital Course Hospital Course: From H&P on the day of admission 88-year-old female with a PMH significant for?HFpEF, aortic valve replacement s/p TAVR, mild dementia, hx of breast cancer, CAD, osteoporosis, asthma, lifelong anemia, and macular degeneration who presented to the ED last night for evaluation of dizziness. She was discharged yesterday from our facility after being treated with pancolitis and cholecystitis s/p percutaenous cholecystostomy tube placement by IR. She was considered for colonoscopy but declined and was considered suboptimately candidate given age and comorbidities. She did complete course of antibiotics. She states that she did have diarrhea on arrival last admission but has not had recurrent episodes in about 7-8 days. No vomiting. She was tolerating diet on discharge and states she was eating and drinking when she got home. She reports when she got home she was experiencing positional dizziness and felt unsteady. No other associated symptoms including sob, palpitations, headaches, vision changes, chest pain. No recent illness. No fevers, chills, urinary symptoms, cough, st, congestion. On arrival, VSS at rest, but significant for orthostatic hypotension which persisted despite 3L IVF. No leukocytosis. Stable anemia. Creat 1.13, was 0.95 on discharge. BUN 17. Na 133, CO2 21, Mg 1.5, lytes otherwise normal. CT abd/pelvis shows cholecystostomy tube in gallbladder which is noted to be distended and contains gallstones, as well as wall thickening, possible choledocolithiasis. No significant ductal dilitation. In the ED, received 3 L IVF. For orthostatic hypotension, patient was treated with IV fluid, likely related to decreased p.o. intake status post percutaneous cholecystostomy tube and kowalski colitis for previous admission. Nifedipine was discontinued. Symptoms resolved. She was able to ambulate without dizziness. She was evaluated by Physical therapy who recommended home with physical therapy services. Cholelithiasis with recent cholecystitis. Her percutaneous cholecystostomy drain was placed by IR on January 19. She was re-evaluated by surgery on this admission and no changes were required. They recommend the drain stays in place for total of 6 weeks. Patient should follow-up with Dr. Keith of General surgery as an outpatient. [facility] Services will assist with drain management Hypomagnesemia. Improved with replacement. Time Attestation Discharge Coordination Time (in mins): 32 Quality: Safe Use of Opioids Does Pt have an Active Cancer Diagnosis on the Problem List?: No Quality: Stroke Does the patient have a stroke diagnosis?: No Physical Exam Vital Signs: Vital Signs: Last Vital Signs Temp 98.3 F 01/29/24 07:48 Pulse 68 01/29/24 09:37 Resp 16 01/29/24 08:06 BP 141/66 H 01/29/24 09:37 Pulse Ox 95 01/29/24 07:48 O2 Del Method Room Air 01/29/24 07:48 BMI result Body Mass Index 29.7 Const: General: cooperative, comfortable, no acute distress, alert and awake Nutritional Appearance: average body habitus Resp: Effort & Inspection: normal respiratory effort and able to speak in complete sentences Cardio: Rate: regular rate GI: Other: Cholecystostomy tube with scant dark drainage Neuro: Other: Grossly nonfocal General: moves all extremities DS: Data Data Completed and Pending Completed studies during hospitalization [Text1]: Procedures Assistance with Respiratory Ventilation, Less than 24 Consecutive Hours, Continuous Positive Airway Pressure (11/22/20) Transfusion of Nonautologous Red Blood Cells into Peripheral Vein, Percutaneous Approach (08/08/23) Labs on day of discharge: Laboratory Results - last 24 hr 01/28/24 12:29 Hold Purple Top SEE NOTE Magnesium 1.7 Preliminary micro results at discharge 01/26/24 01:11 Blood Culture - Preliminary Blood - Venous No growth after 48 hours. 01/26/24 00:17 Blood Culture - Preliminary Blood - Venous No growth after 48 hours. Discharge Plan Discharge Patient Disposition: Home Health Service Referrals: [facility] [Outside] - 3-5 Days (HOME SERVICES FOR SNF AND PHYSICAL THERAPY- A NURSE WILL CALL YOU TO SET UP FIRST VISIT.) Michael Shepard MD [Primary Care Provider] - 1 Week Discharge Medications: Continued fexofenadine 180 mg tablet 180 mg PO BEDTIME ferrous sulfate 325 mg (65 mg iron) tablet 325 mg PO DAILY vitamin E succinate 400 unit tablet 400 unit PO DAILY metoprolol tartrate 25 mg tablet 25 mg PO BID Qty: 180 3RF fluticasone propionate 220 mcg/actuation HFA aerosol inhaler 2 puff inhalation BID 30 Days Qty: 12 5RF Rx Instructions: administer with spacer atorvastatin 80 mg tablet 80 mg PO BEDTIME Qty: 90 3RF aspirin 81 mg tablet,delayed release (DR/EC) 81 mg PO DAILY Qty: 90 3RF amitriptyline 10 mg tablet 10 mg PO BEDTIME Qty: 90 2RF cyanocobalamin (vitamin B-12) 1,000 mcg Tablet 1,000 mcg PO DAILY pyridoxine (vitamin B6) 100 mg Tablet 100 mg PO DAILY ascorbic acid (vitamin C) [Vitamin C] 500 mg Tablet 500 mg PO DAILY diphenhydramine HCl [Benadryl] 25 mg Capsule 25 mg PO DAILY PRN (Reason: Itching) PreserVision AREDS-2 250-90-40-1 mg Capsule 1 tab PO BID Move Free Joint Health 750 mg-100 mg- 1.65 mg-108 mg Tablet 1 tab PO BID alendronate 70 mg tablet 70 mg PO MO@0900 lidocaine 4 % Adhesive Patch,Medicated 1 patch TOPICAL DAILY calcium carbonate-vitamin D3 600 mg-5 mcg (200 unit) Tablet 1 tab PO BEDTIME omeprazole 20 mg capsule,delayed release(DR/EC) 20 mg PO DAILY@0630 Rx Instructions: replaces prior dose of 20 mg once daily ceramides 1,3,6-II [CeraVe] Cream 1 appl TOPICAL 5XD PRN (Reason: SEBORRHEIC KERATOSES) oxycodone 5 mg Tablet 5 mg PO DAILY PRN (Reason: Pain (Scale Score 4-6)) doxycycline hyclate 100 mg capsule 100 mg PO DAILY MDD One tablet PRN (Reason: Dental Prophylaxis) Rx Instructions: Take one tablet 1 hour before dental procedure. (DME) blood pressure monitor Kit See Rx Instructions .Route Qty: 1 0RF Rx Instructions: As directed cholecalciferol (vitamin D3) 25 mcg (1,000 unit) capsule 25 mcg PO DAILY acetaminophen [Tylenol Extra Strength] 500 mg tablet 1,000 mg PO TID albuterol sulfate [ProAir HFA] 90 mcg/actuation HFA aerosol inhaler 2 puff inhalation Q6H PRN (Reason: Bronchodilation) Discontinued nifedipine 30 mg tablet extended release 30 mg PO DAILY Qty: 90 0RF Discharge Orders: Discharge Order (Routine); Ordered 01/29/24 Ordered By: Arlette Massey Activity on Discharge: As tolerated Stand Alone Forms: Patient Portal Discharge page Print Language: Polish Care Plan Goals: See below Health Concerns: Orthostatic hypotension Plan of Treatment: Discontinue nifedipine recommend to change positions (lying to sitting, sitting to standing) slowly; stay adequately hydrated Physical therapy recommended discharge home with VNA and physical therapy services As per previous hospitalization cholecystostomy tube will need to remain in place for 6 weeks, recommend outpatient follow-up with surgeon Dr. Keith as previously planned Assessment: See discharge summary
[2024-01-29] MEDS: Pyridoxine HCl (Vitamin B6) 50 MG TABLET 100 MG PO (11:46)
[2024-01-29] MEDS: oxyCODONE HCl Immed Release 5 MG TABLET PO (11:47)
--- NOTE | 2024-01-29 12:25 | W.MHC.F2F ---
Service Date Service Date: 01/29/24 Encounter Date of encounter: 01/29/24 Reasons for Services Signs and symptoms assessed: Require penitentiary for assistance in management of cholecystostomy tube and blood pressure monitoring Reason for penitentiary: other Reason for physical therapy: home safety and mobility, therapeutic exercises and gait/transfer training Overseeing Care: Michael Shepard Homebound: Leaving the home is medically contraindicated at this time without the asist of a device and/or another person due th the listed conditions above and below. Reason homebound: unsteady gait / fall risk Certification: Based on the above findings, I certify that this patient is confined to the home and needs intermittent penitentiary care, physical therapy and/or speech therapy, or continues to need occupational therapy. The patient is under my care, and I have initiated the establishment of the plan of care. The patient will be followed by a physician who will periodically review the plan of care. Time Spent With Patient Time: Total time managing care of this patient today ____ minutes.
--- NOTE | 2024-01-29 12:38 | MHC.CM.PN ---
Addendum entered by Tina Ames 01/29/24 15:28: DC CANCELLED. PT WILL NEED A P.T. EVAL FOR POSSIBLE REHAB PLACEMENT. [facility] UPDATED. [facility] UPDATED. Original Note: DP: PT HAS BEEN MEDICALLY CLEARED FOR DC BACK TO [facility]. DAUGHTER BEST UPDATED AND WILL BE IN BY 2 PM TO TRANSPORT HER BACK TO [place]. JUAN JOSE, WELLNESS NURSE AT [facility], UPDATED ON RETURN/TIME. DC SUMMARY FAXED TO [phone]. [facility] UPDATED ON DC. RN AWARE.
[2024-01-29 14:44] LABS: Hematocrit 28.3 % (37.0-47.0); Hemoglobin 9.4 g/dl (12.0-16.0); Mean Corpuscular HGB Conc 33.2 g/dl (31.0-35.0); Mean Corpuscular Hemoglobin 32.2 pg (27.0-33.0); Mean Corpuscular Volume 96.9 fL (80.0-98.0); Mean Platelet Volume 10.5 fL (9.4-12.3); Platelet Count 255 X10*3/uL (160-400); Red Blood Count 2.92 X10*6/uL (4.20-5.50); Red Cell Distribution Width 13.6 % (11.0-16.0); White Blood Count 8.8 X10*3/uL (4.8-10.8)
[2024-01-29 15:01] LABS: Anion Gap 9 (12-20); Blood Urea Nitrogen 10 mg/dL (9-16); Calcium 9.4 mg/dL (8.4-10.2); Carbon Dioxide 24 mmol/L (22-29); Chloride 106 mmol/L (96-108); Creatinine Clr Calc Pharmacy 51.4; Estimated Glomerular Filt Rate > 60; Glucose Random 130 mg/dL (60-115); Potassium 4.4 mmol/L (3.3-5.1); Sodium 135 mmol/L (135-145)
[2024-01-29] MEDS: Acetaminophen 325 MG TABLET 650 MG PO ×2 (15:22→22:59)
--- NOTE | 2024-01-29 16:19 | HO.PM.IMPN ---
Subjective Subjective Date of Service: 01/29/24 Interval History: Seen and examined this morning Follow-up for orthostatic hypotension Ambulating without symptoms Patient was discharged but Says she feels tired and does not feel like she can manage at home by herself. now requesting to go to rehab Review of Systems Review of Systems: Yes all other systems are reviewed and are negative Constitutional Constitutional: Denies chills and Denies fever(s) Cardiovascular Cardiovascular: Denies chest pain and Denies dyspnea Respiratory Respiratory: Denies cough and Denies dyspnea Physical Exam Vital Signs: Vital Signs: Last Vital Signs Temp 97.7 F 01/29/24 15:38 Pulse 67 01/29/24 15:38 Resp 18 01/29/24 15:38 BP 145/66 H 01/29/24 15:38 Pulse Ox 97 01/29/24 15:38 O2 Del Method Room Air 01/29/24 15:38 BMI result Body Mass Index 29.7 Const: General: cooperative, comfortable, no acute distress, alert and awake Nutritional Appearance: average body habitus Resp: Effort & Inspection: normal respiratory effort and able to speak in complete sentences Cardio: Rate: regular rate GI: Other: Cholecystostomy tube with scant dark drainage Neuro: Other: Grossly nonfocal General: moves all extremities Objective Data Active Medications Acetaminophen (Acetaminophen 325 Mg Tablet) 650 mg PO Q8H [facility] Last Admin: 01/29/24 15:39 Dose: Not Given Documented By: GENOVEVA Non-Admin Reason: med already given Albuterol Sulfate (Albuterol Sulfate 90 Mcg 8 Gm Inhaler) 2 puff INHALE Q6H PRN PRN Reason: Bronchodilation Amitriptyline HCl (Amitriptyline Hcl 10 Mg Tablet) 10 mg PO BEDTIME [facility] Last Admin: 01/28/24 20:28 Dose: 10 mg Documented By: KAUR Ascorbic Acid (Ascorbic Acid 500 Mg Tablet) 500 mg PO DAILY [facility] Last Admin: 01/29/24 09:38 Dose: 500 mg Documented By: GENOVEVA Aspirin (Aspirin Enteric Coated 81 Mg Tablet.) 81 mg PO DAILY [facility] Last Admin: 01/29/24 09:37 Dose: 81 mg Documented By: GENOVEVA Atorvastatin Calcium (Atorvastatin Calcium 80 Mg Tablet) 80 mg PO BEDTIME [facility] Last Admin: 01/28/24 20:28 Dose: 80 mg Documented By: KAUR Cyanocobalamin (Cyanocobalamin (Vitamin B-12) 1,000 Mcg Tablet) 1,000 mcg PO DAILY [facility] Last Admin: 01/29/24 09:38 Dose: 1,000 mcg Documented By: GENOVEVA Diphenhydramine HCl (Diphenhydramine Hcl 25 Mg Capsule) 25 mg PO DAILY PRN PRN Reason: Itching Last Admin: 01/28/24 17:23 Dose: 25 mg Documented By: LALA Enoxaparin Sodium (Enoxaparin Sodium 40 Mg/0.4 Ml Syringe) 40 mg SUBCUT Q24H [facility] Last Admin: 01/29/24 09:36 Dose: 40 mg Documented By: GENOVEVA Ferrous Sulfate (Ferrous Sulfate 324 Mg Tablet.) 324 mg PO DAILY [facility] Last Admin: 01/29/24 09:37 Dose: 324 mg Documented By: GENOVEVA Fluticasone Propionate (Fluticasone Propionate 250 Mcg Blst.W.Dev) 2 puff INHALE RBID [facility] Last Admin: 01/29/24 08:06 Dose: 2 puff Documented By: NEYDA Lidocaine (Lidocaine 4 % Patch Adh..Patch) 1 patch TRANSDERMA DAILY [facility]; Protocol Last Admin: 01/29/24 09:38 Dose: 1 patch Documented By: GENOVEVA Loratadine (Loratadine 10 Mg Tablet) 10 mg PO DAILY [facility] Last Admin: 01/29/24 09:38 Dose: 10 mg Documented By: GENOVEVA Magnesium Hydroxide (Milk Of Magnesia 30 Ml Oral.Susp) 30 ml PO DAILY PRN PRN Reason: Constipation Metoprolol Tartrate (Metoprolol Tartrate 25 Mg Tablet) 25 mg PO BID [facility]; Protocol Last Admin: 01/29/24 09:37 Dose: 25 mg Documented By: GENOVEVA Omeprazole (Omeprazole 20 Mg Capsule.) 20 mg PO DAILY@0630 [facility] Last Admin: 01/29/24 05:41 Dose: 20 mg Documented By: KAUR Ondansetron HCl (Ondansetron Hcl 4 Mg/2 Ml Vial) 4 mg IVPUSH Q8H PRN PRN Reason: Nausea and Vomiting Oxycodone HCl (Oxycodone Hcl Immed Release 5 Mg Tablet) 5 mg PO DAILY PRN PRN Reason: Pain (Scale Score 4-6) Last Admin: 01/29/24 11:47 Dose: 5 mg Documented By: GENOVEVA Pyridoxine HCl (Pyridoxine Hcl (Vitamin B6) 50 Mg Tablet) 100 mg PO DAILY [facility] Last Admin: 01/29/24 11:46 Dose: 100 mg Documented By: GENOVEVA Sodium Chloride (0.9 % Sodium Chloride Flush 3 Ml Syringe) 3 ml IVFLUSH QSHIFT [facility] Last Admin: 01/29/24 15:41 Dose: 3 ml Documented By: GENOVEVA Vitamin D (Cholecalciferol (Vitamin D3) 25 Mcg Tablet) 25 mcg PO DAILY [facility] Last Admin: 01/29/24 09:37 Dose: 25 mcg Documented By: GENOVEVA Vitamin E (Vitamin E (Dl,Tocopheryl Acet) 180 Mg (400 Unit) Capsule) 180 mg PO DAILY [facility] Last Admin: 01/29/24 09:37 Dose: 180 mg Documented By: GENOVEVA Labs 01/29/24 14:00 01/29/24 14:00 Labs: Laboratory Results - last 24 hr 01/29/24 14:00 MCV 96.9 MCH 32.2 MCHC 33.2 RDW 13.6 Plt Count 255 MPV 10.5 Absolute Nucleated RBC 0.000 Nucleated RBC % (auto) 0.0 Anion Gap 9 L Estim Creat Clear Calc 51.4 Estimated GFR > 60 Random Glucose 130 H Calcium 9.4 D Assessment and Plan (1) Orthostatic hypotension: Status: Acute Plan 88-year-old female with a PMH significant for?HFpEF, aortic valve replacement s/p TAVR, mild dementia, hx of breast cancer, CAD, osteoporosis, asthma, lifelong anemia, and macular degeneration who presented to the ED last night for evaluation of dizziness. She was discharged yesterday from our facility after being treated with pancolitis and cholecystitis s/p percutaenous cholecystostomy tube placement by IR. She was considered for colonoscopy but declined and was considered suboptimately candidate given age and comorbidities. She did complete course of antibiotics. She will be observed overnight for orthostatic hypotension Orthostatic hypotension suspect related to suboptimal PO intake s/p perc cholecystostomy and pancolitis that is now resolved Remains orthostatic but asymptomatic ambulating without dizziness nifedipine stopped Cholelithiasis with recent cholecystitis s/p perc juan manuel drain placed by IR 01/20/24 general surgery consult> drain should remain for total 6 weeks and pt to f/u with Dr. Keith in his office Hypomagnesemia resolved with replacement Right shoulder pain chronic continue prn meds family requests scheduled Tylenol as the patient takes at home CAD Continue aspirin, statin HTN continue metoprolol stop nifedipine Asthma Not in acute exacerbation Continue home inhalers Chronic anemia H&H at baseline Continue iron supplementation Follow CBC dvt prophylaxis- lovenox Attending Dr. Jessica full code Quality Stroke Does the patient have a stroke diagnosis?: No VTE Prior VTE?: No VTE Risk Level:: Medical - moderate - high VTE Device Contraindication: Treatment Not Indicated VTE Drug Contraindication: N/A - Med Ordered
[2024-01-29] MEDS: Amitriptyline HCl 10 MG TABLET PO (20:43)
[2024-01-29] MEDS: Atorvastatin Calcium 80 MG TABLET PO (20:44)
[2024-01-30] VITALS (8 sets, daily range): BP systolic 127–172; BP diastolic 60–85; PULSE 67–76; RESP 13–18; TEMP 36.1–36.5; O2SAT 94–98
[2024-01-30] MEDS: oxyCODONE HCl Immed Release 5 MG TABLET PO ×2 (03:42→16:30)
[2024-01-30] MEDS: Omeprazole 20 MG CAPSULE.DR PO (06:32)
[2024-01-30] MEDS: Acetaminophen 325 MG TABLET 650 MG PO ×3 (06:32→23:26)
[2024-01-30] MEDS: Fluticasone Propionate 250 MCG BLST.W.DEV 2 PUFF INHALE ×2 (08:13→19:39)
--- NOTE | 2024-01-30 08:24 | HO.PM.IMPN ---
Subjective Subjective Date of Service: 01/30/24 Interval History: seen and examined no new complaints reported Review of Systems Negative except HPI/interval history. Physical Exam Vital Signs: Vital Signs: Last Vital Signs Temp 96.9 F 01/30/24 08:00 Pulse 67 01/30/24 08:16 Resp 18 01/30/24 08:16 BP 137/62 01/30/24 08:00 Pulse Ox 94 01/30/24 08:00 O2 Del Method Room Air 01/30/24 08:00 BMI result Body Mass Index 29.7 Const: Other: General - no acute distress, appears comfortable Cardiovascular - regular rate and rhythm, S1-S2 Lungs - normal respiratory effort, clear to auscultation bilaterally, no wheezing Abdomen - soft, nontender, no rebound or guarding Extremities - no edema bilaterally Neuro - awake and alert, no focal deficits Objective Data Active Medications Acetaminophen (Acetaminophen 325 Mg Tablet) 650 mg PO Q8H [facility] Last Admin: 01/30/24 06:32 Dose: 650 mg Documented By: BEE Albuterol Sulfate (Albuterol Sulfate 90 Mcg 8 Gm Inhaler) 2 puff INHALE Q6H PRN PRN Reason: Bronchodilation Amitriptyline HCl (Amitriptyline Hcl 10 Mg Tablet) 10 mg PO BEDTIME [facility] Last Admin: 01/29/24 20:43 Dose: 10 mg Documented By: BEE Ascorbic Acid (Ascorbic Acid 500 Mg Tablet) 500 mg PO DAILY [facility] Last Admin: 01/29/24 09:38 Dose: 500 mg Documented By: GENOVEVA Aspirin (Aspirin Enteric Coated 81 Mg Tablet.) 81 mg PO DAILY [facility] Last Admin: 01/29/24 09:37 Dose: 81 mg Documented By: GENOVEVA Atorvastatin Calcium (Atorvastatin Calcium 80 Mg Tablet) 80 mg PO BEDTIME [facility] Last Admin: 01/29/24 20:44 Dose: 80 mg Documented By: BEE Cyanocobalamin (Cyanocobalamin (Vitamin B-12) 1,000 Mcg Tablet) 1,000 mcg PO DAILY [facility] Last Admin: 01/29/24 09:38 Dose: 1,000 mcg Documented By: GENOVEVA Diphenhydramine HCl (Diphenhydramine Hcl 25 Mg Capsule) 25 mg PO DAILY PRN PRN Reason: Itching Last Admin: 01/28/24 17:23 Dose: 25 mg Documented By: LALA Enoxaparin Sodium (Enoxaparin Sodium 40 Mg/0.4 Ml Syringe) 40 mg SUBCUT Q24H [facility] Last Admin: 01/29/24 09:36 Dose: 40 mg Documented By: GENOVEVA Ferrous Sulfate (Ferrous Sulfate 324 Mg Tablet.) 324 mg PO DAILY [facility] Last Admin: 01/29/24 09:37 Dose: 324 mg Documented By: GENOVEVA Fluticasone Propionate (Fluticasone Propionate 250 Mcg Blst.W.Dev) 2 puff INHALE RBID [facility] Last Admin: 01/30/24 08:13 Dose: 2 puff Documented By: FIGELDA Lidocaine (Lidocaine 4 % Patch Adh..Patch) 1 patch TRANSDERMA DAILY [facility]; Protocol Last Admin: 01/29/24 09:38 Dose: 1 patch Documented By: GENOVEVA Loratadine (Loratadine 10 Mg Tablet) 10 mg PO DAILY [facility] Last Admin: 01/29/24 09:38 Dose: 10 mg Documented By: GENOVEVA Magnesium Hydroxide (Milk Of Magnesia 30 Ml Oral.Susp) 30 ml PO DAILY PRN PRN Reason: Constipation Metoprolol Tartrate (Metoprolol Tartrate 25 Mg Tablet) 25 mg PO BID [facility]; Protocol Last Admin: 01/29/24 20:43 Dose: 25 mg Documented By: BEE Omeprazole (Omeprazole 20 Mg Capsule.) 20 mg PO DAILY@0630 [facility] Last Admin: 01/30/24 06:32 Dose: 20 mg Documented By: BEE Ondansetron HCl (Ondansetron Hcl 4 Mg/2 Ml Vial) 4 mg IVPUSH Q8H PRN PRN Reason: Nausea and Vomiting Oxycodone HCl (Oxycodone Hcl Immed Release 5 Mg Tablet) 5 mg PO DAILY PRN PRN Reason: Pain (Scale Score 4-6) Last Admin: 01/30/24 03:42 Dose: 5 mg Documented By: BEE Comments: MD Hester notified of the pt's 910 pain, oaky to give early per Pyridoxine HCl (Pyridoxine Hcl (Vitamin B6) 50 Mg Tablet) 100 mg PO DAILY [facility] Last Admin: 01/29/24 11:46 Dose: 100 mg Documented By: GENOVEVA Sodium Chloride (0.9 % Sodium Chloride Flush 3 Ml Syringe) 3 ml IVFLUSH QSHIFT [facility] Last Admin: 01/29/24 20:45 Dose: 3 ml Documented By: BEE Vitamin D (Cholecalciferol (Vitamin D3) 25 Mcg Tablet) 25 mcg PO DAILY [facility] Last Admin: 01/29/24 09:37 Dose: 25 mcg Documented By: GENOVEVA Vitamin E (Vitamin E (Dl,Tocopheryl Acet) 180 Mg (400 Unit) Capsule) 180 mg PO DAILY [facility] Last Admin: 01/29/24 09:37 Dose: 180 mg Documented By: GENOVEVA Labs 01/29/24 14:00 01/29/24 14:00 Labs: Laboratory Results - last 24 hr 01/29/24 14:00 MCV 96.9 MCH 32.2 MCHC 33.2 RDW 13.6 Plt Count 255 MPV 10.5 Absolute Nucleated RBC 0.000 Nucleated RBC % (auto) 0.0 Anion Gap 9 L Estim Creat Clear Calc 51.4 Estimated GFR > 60 Random Glucose 130 H Calcium 9.4 D Assessment and Plan (1) Orthostatic hypotension: Status: Acute Plan 88-year-old female with a PMH significant for?HFpEF, aortic valve replacement s/p TAVR, mild dementia, hx of breast cancer, CAD, osteoporosis, asthma, lifelong anemia, and macular degeneration who presented to the ED last night for evaluation of dizziness. She was discharged yesterday from our facility after being treated with pancolitis and cholecystitis s/p percutaenous cholecystostomy tube placement by IR. She was considered for colonoscopy but declined and was considered suboptimately candidate given age and comorbidities. She did complete course of antibiotics. She will be observed overnight for orthostatic hypotension await PT eval and possible rehab transfer stable issues: Orthostatic hypotension suspect related to suboptimal PO intake s/p perc cholecystostomy and pancolitis that is now resolved Remains orthostatic but asymptomatic ambulating without dizziness nifedipine stopped Cholelithiasis with recent cholecystitis s/p perc juan manuel drain placed by IR 01/20/24 general surgery consult> drain should remain for total 6 weeks and pt to f/u with Dr. Keith in his office Hypomagnesemia resolved with replacement Right shoulder pain chronic continue prn meds family requests scheduled Tylenol as the patient takes at home CAD Continue aspirin, statin HTN continue metoprolol stop nifedipine Asthma Not in acute exacerbation Continue home inhalers Chronic anemia H&H at baseline Continue iron supplementation Follow CBC dvt prophylaxis- lovenox Quality Stroke Does the patient have a stroke diagnosis?: No VTE Prior VTE?: No VTE Risk Level:: Medical - moderate - high VTE Device Contraindication: Treatment Not Indicated VTE Drug Contraindication: N/A - Med Ordered
[2024-01-30] MEDS: Cholecalciferol (Vitamin D3) 25 MCG TABLET PO (08:56)
[2024-01-30] MEDS: Metoprolol Tartrate 25 MG TABLET PO ×2 (08:56→21:32)
[2024-01-30] MEDS: Pyridoxine HCl (Vitamin B6) 50 MG TABLET 100 MG PO (08:56)
[2024-01-30] MEDS: Aspirin Enteric Coated 81 MG TABLET.DR PO (08:56)
[2024-01-30] MEDS: Enoxaparin Sodium 40 MG/0.4 ML SYRINGE SUBCUT (08:57)
[2024-01-30] MEDS: Cyanocobalamin (Vitamin B-12) 1,000 MCG TABLET 1000 MCG PO (08:57)
[2024-01-30] MEDS: 0.9 % Sodium Chloride Flush 3 ML SYRINGE IVFLUSH ×3 (08:57→21:33)
[2024-01-30] MEDS: Ascorbic Acid 500 MG TABLET PO (08:57)
[2024-01-30] MEDS: Ferrous Sulfate 324 MG TABLET.DR PO (08:57)
[2024-01-30] MEDS: Vitamin E (Dl,Tocopheryl Acet) 180 MG (400 UNIT) CAPSULE PO (08:57)
[2024-01-30] MEDS: Loratadine 10 MG TABLET PO (08:57)
[2024-01-30] MEDS: Lidocaine 4 % Patch ADH..PATCH 1 PATCH TRANSDERMA (08:57)
--- NOTE | 2024-01-30 16:31 | PC.NURSE ---
PRN 5mg oxycodone given early per Dr. Jessica for 7/10 right arm pain.
[2024-01-30] MEDS: Atorvastatin Calcium 80 MG TABLET PO (21:32)
[2024-01-30] MEDS: Amitriptyline HCl 10 MG TABLET PO (21:32)
[2024-01-31] VITALS (8 sets, daily range): BP systolic 118–139; BP diastolic 57–73; PULSE 67–77; RESP 14–20; TEMP 36–36.4; O2SAT 94–97
[2024-01-31] MEDS: Omeprazole 20 MG CAPSULE.DR PO (06:51)
[2024-01-31] MEDS: Acetaminophen 325 MG TABLET 650 MG PO ×3 (06:52→22:10)
[2024-01-31] MEDS: Fluticasone Propionate 250 MCG BLST.W.DEV 2 PUFF INHALE ×2 (09:07→20:02)
[2024-01-31] MEDS: Vitamin E (Dl,Tocopheryl Acet) 180 MG (400 UNIT) CAPSULE PO (09:14)
[2024-01-31] MEDS: Pyridoxine HCl (Vitamin B6) 50 MG TABLET 100 MG PO (09:14)
[2024-01-31] MEDS: Cyanocobalamin (Vitamin B-12) 1,000 MCG TABLET 1000 MCG PO (09:14)
[2024-01-31] MEDS: Aspirin Enteric Coated 81 MG TABLET.DR PO (09:14)
[2024-01-31] MEDS: Cholecalciferol (Vitamin D3) 25 MCG TABLET PO (09:14)
[2024-01-31] MEDS: Metoprolol Tartrate 25 MG TABLET PO ×2 (09:14→22:10)
[2024-01-31] MEDS: Enoxaparin Sodium 40 MG/0.4 ML SYRINGE SUBCUT (09:15)
[2024-01-31] MEDS: Ascorbic Acid 500 MG TABLET PO (09:15)
[2024-01-31] MEDS: Loratadine 10 MG TABLET PO (09:15)
[2024-01-31] MEDS: Lidocaine 4 % Patch ADH..PATCH 1 PATCH TRANSDERMA (09:15)
[2024-01-31] MEDS: Ferrous Sulfate 324 MG TABLET.DR PO (09:15)
[2024-01-31] MEDS: 0.9 % Sodium Chloride Flush 3 ML SYRINGE IVFLUSH ×3 (09:23→23:38)
--- NOTE | 2024-01-31 11:43 | P.PNIM_ITS ---
Subjective Subjective Date of Service: 01/31/24 Interval History: seen and examined no issues reported Review of Systems Negative except HPI/interval history. Physical Exam 2 Vital Signs: Vital Signs: Last Vital Signs Temp 96.8 F 01/31/24 07:31 Pulse 69 01/31/24 09:14 Resp 16 01/31/24 09:09 BP 139/62 01/31/24 09:14 Pulse Ox 94 01/31/24 07:31 O2 Del Method Room Air 01/31/24 07:31 BMI result Body Mass Index 29.7 Const: Other: General - no acute distress, appears comfortable Cardiovascular - regular rate and rhythm, S1-S2 Lungs - normal respiratory effort, clear to auscultation bilaterally, no wheezing Abdomen - soft, nontender, no rebound or guarding Extremities - no edema bilaterally Neuro - awake and alert, no focal deficits Objective Data Active Medications Acetaminophen (Acetaminophen 325 Mg Tablet) 650 mg PO Q8H [facility] Last Admin: 01/31/24 06:52 Dose: 650 mg Documented By: BEE Albuterol Sulfate (Albuterol Sulfate 90 Mcg 8 Gm Inhaler) 2 puff INHALE Q6H PRN PRN Reason: Bronchodilation Amitriptyline HCl (Amitriptyline Hcl 10 Mg Tablet) 10 mg PO BEDTIME [facility] Last Admin: 01/30/24 21:32 Dose: 10 mg Documented By: BEE Ascorbic Acid (Ascorbic Acid 500 Mg Tablet) 500 mg PO DAILY [facility] Last Admin: 01/31/24 09:15 Dose: 500 mg Documented By: ADRIANNE Aspirin (Aspirin Enteric Coated 81 Mg Tablet.) 81 mg PO DAILY [facility] Last Admin: 01/31/24 09:14 Dose: 81 mg Documented By: ADRIANNE Atorvastatin Calcium (Atorvastatin Calcium 80 Mg Tablet) 80 mg PO BEDTIME [facility] Last Admin: 01/30/24 21:32 Dose: 80 mg Documented By: BEE Cyanocobalamin (Cyanocobalamin (Vitamin B-12) 1,000 Mcg Tablet) 1,000 mcg PO DAILY [facility] Last Admin: 01/31/24 09:14 Dose: 1,000 mcg Documented By: ADRIANNE Diphenhydramine HCl (Diphenhydramine Hcl 25 Mg Capsule) 25 mg PO DAILY PRN PRN Reason: Itching Last Admin: 01/28/24 17:23 Dose: 25 mg Documented By: LALA Enoxaparin Sodium (Enoxaparin Sodium 40 Mg/0.4 Ml Syringe) 40 mg SUBCUT Q24H [facility] Last Admin: 01/31/24 09:15 Dose: 40 mg Documented By: ADRIANNE Ferrous Sulfate (Ferrous Sulfate 324 Mg Tablet.) 324 mg PO DAILY [facility] Last Admin: 01/31/24 09:15 Dose: 324 mg Documented By: ADRIANNE Fluticasone Propionate (Fluticasone Propionate 250 Mcg Blst.W.Dev) 2 puff INHALE RBID [facility] Last Admin: 01/31/24 09:07 Dose: 2 puff Documented By: NEYDA Lidocaine (Lidocaine 4 % Patch Adh..Patch) 1 patch TRANSDERMA DAILY [facility]; Protocol Last Admin: 01/31/24 09:15 Dose: 1 patch Documented By: ADRIANNE Loratadine (Loratadine 10 Mg Tablet) 10 mg PO DAILY [facility] Last Admin: 01/31/24 09:15 Dose: 10 mg Documented By: ADRIANNE Magnesium Hydroxide (Milk Of Magnesia 30 Ml Oral.Susp) 30 ml PO DAILY PRN PRN Reason: Constipation Metoprolol Tartrate (Metoprolol Tartrate 25 Mg Tablet) 25 mg PO BID [facility]; Protocol Last Admin: 01/31/24 09:14 Dose: 25 mg Documented By: ADRIANNE Omeprazole (Omeprazole 20 Mg Capsule.) 20 mg PO DAILY@0630 [facility] Last Admin: 01/31/24 06:51 Dose: 20 mg Documented By: BEE Ondansetron HCl (Ondansetron Hcl 4 Mg/2 Ml Vial) 4 mg IVPUSH Q8H PRN PRN Reason: Nausea and Vomiting Oxycodone HCl (Oxycodone Hcl Immed Release 5 Mg Tablet) 5 mg PO Q12H PRN PRN Reason: Pain (Scale Score 4-6) Pyridoxine HCl (Pyridoxine Hcl (Vitamin B6) 50 Mg Tablet) 100 mg PO DAILY [facility] Last Admin: 01/31/24 09:14 Dose: 100 mg Documented By: ADRIANNE Sodium Chloride (0.9 % Sodium Chloride Flush 3 Ml Syringe) 3 ml IVFLUSH QSHIFT [facility] Last Admin: 01/31/24 09:23 Dose: 3 ml Documented By: ADRIANNE Vitamin D (Cholecalciferol (Vitamin D3) 25 Mcg Tablet) 25 mcg PO DAILY [facility] Last Admin: 01/31/24 09:14 Dose: 25 mcg Documented By: ADRIANNE Vitamin E (Vitamin E (Dl,Tocopheryl Acet) 180 Mg (400 Unit) Capsule) 180 mg PO DAILY [facility] Last Admin: 01/31/24 09:14 Dose: 180 mg Documented By: ADRIANNE Labs 01/29/24 14:00 01/29/24 14:00 Microbiology Microbiology Results: Microbiology 01/26/24 01:11 Blood Culture - Final Blood - Venous No growth after 5 days. 01/26/24 00:17 Blood Culture - Final Blood - Venous No growth after 5 days. Assessment and Plan (1) Orthostatic hypotension: Status: Acute Plan 88-year-old female with a PMH significant for?HFpEF, aortic valve replacement s/p TAVR, mild dementia, hx of breast cancer, CAD, osteoporosis, asthma, lifelong anemia, and macular degeneration who presented to the ED last night for evaluation of dizziness. She was discharged yesterday from our facility after being treated with pancolitis and cholecystitis s/p percutaenous cholecystostomy tube placement by IR. She was considered for colonoscopy but declined and was considered suboptimately candidate given age and comorbidities. She did complete course of antibiotics. She will be observed overnight for orthostatic hypotension will request repeat PT evaluation tomorrow stable issues: Orthostatic hypotension suspect related to suboptimal PO intake s/p perc cholecystostomy and pancolitis that is now resolved Remains orthostatic but asymptomatic ambulating without dizziness nifedipine stopped Cholelithiasis with recent cholecystitis s/p perc juan manuel drain placed by IR 01/20/24 general surgery consult> drain should remain for total 6 weeks and pt to f/u with Dr. Keith in his office Hypomagnesemia resolved with replacement Right shoulder pain chronic continue prn meds family requests scheduled Tylenol as the patient takes at home CAD Continue aspirin, statin HTN continue metoprolol stop nifedipine Asthma Not in acute exacerbation Continue home inhalers Chronic anemia H&H at baseline Continue iron supplementation Follow CBC dvt prophylaxis- lovenox Quality Stroke Does the patient have a stroke diagnosis?: No VTE Prior VTE?: No VTE Risk Level:: Medical - moderate - high VTE Device Contraindication: Treatment Not Indicated VTE Drug Contraindication: N/A - Med Ordered
[2024-01-31] MEDS: oxyCODONE HCl Immed Release 5 MG TABLET PO ×2 (12:31→22:10)
--- NOTE | 2024-01-31 16:47 | PM.EVENT ---
Event Note Date of Service: 01/31/24 Event Note: pt complaining right side pain near the drain site - it all looks good and draining good bile no issues for now with removing the drain - needs to be in approx 6 weeks Time Spent With Patient Time: Total time managing care of this patient today ____ minutes.
[2024-01-31] MEDS: Atorvastatin Calcium 80 MG TABLET PO (22:10)
[2024-01-31] MEDS: Amitriptyline HCl 10 MG TABLET PO (22:10)
[2024-02-01] VITALS (9 sets, daily range): BP systolic 131–154; BP diastolic 61–72; PULSE 66–84; RESP 16–18; TEMP 36.1–36.9; O2SAT 94–99
[2024-02-01] MEDS: Omeprazole 20 MG CAPSULE.DR PO (05:59)
[2024-02-01] MEDS: oxyCODONE HCl Immed Release 5 MG TABLET PO ×2 (05:59→16:17)
[2024-02-01] MEDS: Fluticasone Propionate 250 MCG BLST.W.DEV 2 PUFF INHALE ×2 (07:45→20:21)
[2024-02-01] MEDS: Aspirin Enteric Coated 81 MG TABLET.DR PO (08:06)
[2024-02-01] MEDS: Pyridoxine HCl (Vitamin B6) 50 MG TABLET 100 MG PO (08:06)
[2024-02-01] MEDS: Vitamin E (Dl,Tocopheryl Acet) 180 MG (400 UNIT) CAPSULE PO (08:06)
[2024-02-01] MEDS: Ferrous Sulfate 324 MG TABLET.DR PO (08:06)
[2024-02-01] MEDS: Metoprolol Tartrate 25 MG TABLET PO ×2 (08:06→19:46)
[2024-02-01] MEDS: Loratadine 10 MG TABLET PO (08:06)
[2024-02-01] MEDS: Cholecalciferol (Vitamin D3) 25 MCG TABLET PO (08:06)
[2024-02-01] MEDS: Lidocaine 4 % Patch ADH..PATCH 1 PATCH TRANSDERMA (08:07)
[2024-02-01] MEDS: Acetaminophen 325 MG TABLET 650 MG PO ×3 (08:07→23:49)
[2024-02-01] MEDS: Cyanocobalamin (Vitamin B-12) 1,000 MCG TABLET 1000 MCG PO (08:07)
[2024-02-01] MEDS: Ascorbic Acid 500 MG TABLET PO (08:07)
[2024-02-01] MEDS: 0.9 % Sodium Chloride Flush 3 ML SYRINGE IVFLUSH ×3 (08:07→19:47)
--- NOTE | 2024-02-01 09:44 | HO.PM.IMPN ---
Subjective Subjective Date of Service: 02/01/24 Interval History: seen and examined no issues reported Review of Systems Negative except HPI/interval history. Physical Exam Vital Signs: Vital Signs: Last Vital Signs Temp 98.4 F 02/01/24 07:21 Pulse 72 02/01/24 08:06 Resp 16 02/01/24 07:47 BP 154/71 H 02/01/24 08:06 Pulse Ox 94 02/01/24 07:21 O2 Del Method Room Air 02/01/24 07:21 BMI result Body Mass Index 29.7 Appearing in no acute distress lung sounds are clear to auscultation heart regular rate rhythm, clear S1, S2 positive bowel sounds, abdomen is soft, nontender neuro patient is alert x3, no focal deficits Objective Data Active Medications Acetaminophen (Acetaminophen 325 Mg Tablet) 650 mg PO Q8H [facility] Last Admin: 02/01/24 08:07 Dose: 650 mg Documented By: MIRANDA Albuterol Sulfate (Albuterol Sulfate 90 Mcg 8 Gm Inhaler) 2 puff INHALE Q6H PRN PRN Reason: Bronchodilation Amitriptyline HCl (Amitriptyline Hcl 10 Mg Tablet) 10 mg PO BEDTIME [facility] Last Admin: 01/31/24 22:10 Dose: 10 mg Documented By: MATILDA Ascorbic Acid (Ascorbic Acid 500 Mg Tablet) 500 mg PO DAILY [facility] Last Admin: 02/01/24 08:07 Dose: 500 mg Documented By: MIRANDA Aspirin (Aspirin Enteric Coated 81 Mg Tablet.) 81 mg PO DAILY [facility] Last Admin: 02/01/24 08:06 Dose: 81 mg Documented By: MIRANDA Atorvastatin Calcium (Atorvastatin Calcium 80 Mg Tablet) 80 mg PO BEDTIME [facility] Last Admin: 01/31/24 22:10 Dose: 80 mg Documented By: MATILDA Cyanocobalamin (Cyanocobalamin (Vitamin B-12) 1,000 Mcg Tablet) 1,000 mcg PO DAILY [facility] Last Admin: 02/01/24 08:07 Dose: 1,000 mcg Documented By: MIRANDA Diphenhydramine HCl (Diphenhydramine Hcl 25 Mg Capsule) 25 mg PO DAILY PRN PRN Reason: Itching Last Admin: 01/28/24 17:23 Dose: 25 mg Documented By: LALA Enoxaparin Sodium (Enoxaparin Sodium 40 Mg/0.4 Ml Syringe) 40 mg SUBCUT Q24H [facility] Last Admin: 01/31/24 09:15 Dose: 40 mg Documented By: ADRIANNE Ferrous Sulfate (Ferrous Sulfate 324 Mg Tablet.) 324 mg PO DAILY [facility] Last Admin: 02/01/24 08:06 Dose: 324 mg Documented By: MIRANDA Fluticasone Propionate (Fluticasone Propionate 250 Mcg Blst.W.Dev) 2 puff INHALE RBID [facility] Last Admin: 02/01/24 07:45 Dose: 2 puff Documented By: LILIAM Lidocaine (Lidocaine 4 % Patch Adh..Patch) 1 patch TRANSDERMA DAILY [facility]; Protocol Last Admin: 02/01/24 08:07 Dose: 1 patch Documented By: MIRANDA Loratadine (Loratadine 10 Mg Tablet) 10 mg PO DAILY [facility] Last Admin: 02/01/24 08:06 Dose: 10 mg Documented By: MIRANDA Magnesium Hydroxide (Milk Of Magnesia 30 Ml Oral.Susp) 30 ml PO DAILY PRN PRN Reason: Constipation Metoprolol Tartrate (Metoprolol Tartrate 25 Mg Tablet) 25 mg PO BID [facility]; Protocol Last Admin: 02/01/24 08:06 Dose: 25 mg Documented By: MIRANDA Omeprazole (Omeprazole 20 Mg Capsule.) 20 mg PO DAILY@0630 [facility] Last Admin: 02/01/24 05:59 Dose: 20 mg Documented By: FAYE Ondansetron HCl (Ondansetron Hcl 4 Mg/2 Ml Vial) 4 mg IVPUSH Q8H PRN PRN Reason: Nausea and Vomiting Oxycodone HCl (Oxycodone Hcl Immed Release 5 Mg Tablet) 5 mg PO Q12H PRN PRN Reason: Pain (Scale Score 4-6) Last Admin: 01/31/24 22:10 Dose: 5 mg Documented By: MATILDA Pyridoxine HCl (Pyridoxine Hcl (Vitamin B6) 50 Mg Tablet) 100 mg PO DAILY [facility] Last Admin: 02/01/24 08:06 Dose: 100 mg Documented By: MIRANDA Sodium Chloride (0.9 % Sodium Chloride Flush 3 Ml Syringe) 3 ml IVFLUSH QSHIFT [facility] Last Admin: 02/01/24 08:07 Dose: 3 ml Documented By: MIRANDA Vitamin D (Cholecalciferol (Vitamin D3) 25 Mcg Tablet) 25 mcg PO DAILY [facility] Last Admin: 02/01/24 08:06 Dose: 25 mcg Documented By: MIRANDA Vitamin E (Vitamin E (Dl,Tocopheryl Acet) 180 Mg (400 Unit) Capsule) 180 mg PO DAILY [facility] Last Admin: 02/01/24 08:06 Dose: 180 mg Documented By: MIRANDA Labs 01/29/24 14:00 01/29/24 14:00 Microbiology Microbiology Results: Microbiology 01/26/24 01:11 Blood Culture - Final Blood - Venous No growth after 5 days. Assessment and Plan (1) Orthostatic hypotension: Status: Acute Plan 88-year-old female with a PMH significant for?HFpEF, aortic valve replacement s/p TAVR, mild dementia, hx of breast cancer, CAD, osteoporosis, asthma, lifelong anemia, and macular degeneration who presented to the ED last night for evaluation of dizziness. She was discharged yesterday from our facility after being treated with pancolitis and cholecystitis s/p percutaenous cholecystostomy tube placement by IR. She was considered for colonoscopy but declined and was considered suboptimately candidate given age and comorbidities. She did complete course of antibiotics. She will be observed overnight for orthostatic hypotension Orthostatic hypotension suspect related to suboptimal PO intake s/p perc cholecystostomy and pancolitis that is now resolved Remains orthostatic but asymptomatic ambulating without dizziness nifedipine stopped Cholelithiasis with recent cholecystitis s/p perc juan manuel drain placed by IR 01/20/24 general surgery consult> drain should remain for total 6 weeks and pt to f/u with Dr. Keith in his office Hypomagnesemia resolved with replacement Right shoulder pain chronic continue prn meds family requests scheduled Tylenol as the patient takes at home CAD Continue aspirin, statin HTN continue metoprolol stopped nifedipine Asthma Not in acute exacerbation Continue home inhalers Chronic anemia H&H at baseline Continue iron supplementation Follow CBC DISPO PT rec STR dvt prophylaxis- lovenox Attending Dr. Jessica Full code Quality Stroke Does the patient have a stroke diagnosis?: No VTE Prior VTE?: No VTE Risk Level:: Medical - moderate - high VTE Device Contraindication: Treatment Not Indicated VTE Drug Contraindication: N/A - Med Ordered
[2024-02-01] MEDS: Enoxaparin Sodium 40 MG/0.4 ML SYRINGE SUBCUT (10:37)
--- NOTE | 2024-02-01 15:44 | MHC.CM.PN ---
CM MET WITH PT AND DAUGHTER, BEST, TO DISCUSS DC PLANNING THEY HAVE ACCEPTED A BED OFFER FROM [facility] HAS SUBMITTED FOR INSURANCE AUTH PT WILL DC TO [facility] FOR STR PENDING AUTH BLS TRANSPORT
--- NOTE | 2024-02-01 16:00 | PC.NURSE ---
Pt up OOB to chair 1A with walker, worked with physical therapy today, complains of chronic R arm pain scheduled APAP given per OCT, call lopez within reach, no signs of distress.
[2024-02-01] MEDS: Amitriptyline HCl 10 MG TABLET PO (19:47)
[2024-02-01] MEDS: Atorvastatin Calcium 80 MG TABLET PO (19:47)
[2024-02-01] MEDS: diphenhydrAMINE HCL 25 MG CAPSULE PO (19:47)
[2024-02-02] MEDS: oxyCODONE HCl Immed Release 5 MG TABLET PO (01:56)
[2024-02-02 02:29] VITALS: BP 132/61; PULSE 61; RESP 18; TEMP 36.2; O2SAT 98
[2024-02-02] MEDS: HYDROmorphone HCl 1 MG/ML SYRINGE IVPUSH (02:53)
--- NOTE | 2024-02-02 04:39 | PC.NURSE ---
At approximately 0145 pt c/o 6/10 pain in right hip and asking for pain medication, prn oxy 5 mg not due until 0415, tiger text to Dr. Pratt and she said OK to give dose early. Dose given at 0156 with no effect. Pt continues to c/o pain in right hip escalating to 10/10 pain. [place] text to Dr. Pratt and 1 mg IV dilaudid ordered and administered at 0253 with good effect. Will continue to monitor.
[2024-02-02] MEDS: Omeprazole 20 MG CAPSULE.DR PO (05:05)
[2024-02-02 07:35] VITALS: BP 119/58; PULSE 66; RESP 16; TEMP 36.2; O2SAT 97
[2024-02-02] MEDS: Lidocaine 4 % Patch ADH..PATCH 1 PATCH TRANSDERMA (08:02)
[2024-02-02] MEDS: Metoprolol Tartrate 25 MG TABLET PO (08:05)
[2024-02-02] MEDS: Cholecalciferol (Vitamin D3) 25 MCG TABLET PO (08:05)
[2024-02-02] MEDS: Pyridoxine HCl (Vitamin B6) 50 MG TABLET 100 MG PO (08:06)
[2024-02-02] MEDS: Acetaminophen 325 MG TABLET 650 MG PO ×2 (08:06→15:24)
[2024-02-02] MEDS: Aspirin Enteric Coated 81 MG TABLET.DR PO (08:06)
[2024-02-02] MEDS: Ascorbic Acid 500 MG TABLET PO (08:06)
[2024-02-02] MEDS: Cyanocobalamin (Vitamin B-12) 1,000 MCG TABLET 1000 MCG PO (08:06)
[2024-02-02] MEDS: Vitamin E (Dl,Tocopheryl Acet) 180 MG (400 UNIT) CAPSULE PO (08:06)
[2024-02-02] MEDS: Ferrous Sulfate 324 MG TABLET.DR PO (08:06)
[2024-02-02] MEDS: Loratadine 10 MG TABLET PO (08:06)
[2024-02-02] MEDS: 0.9 % Sodium Chloride Flush 3 ML SYRINGE IVFLUSH ×2 (08:07→15:25)
[2024-02-02] MEDS: Enoxaparin Sodium 40 MG/0.4 ML SYRINGE SUBCUT (08:07)
--- NOTE | 2024-02-02 12:51 | MHC.CM.PN ---
Addendum entered by Valarie Lorenzo RN 02/02/24 13:01: Daughter also informed, per patient request. Original Note: Patient medically cleared for dc to [facility] has obtained auth. S transport booked for 430 pm. [employer], RN, and patient aware.
[2024-02-02] MEDS: ondansetron HCL 4 MG/2 ML VIAL IVPUSH (13:36)
[2024-02-02 15:07] VITALS: BP 120/62; PULSE 64; RESP 18; TEMP 36.2; O2SAT 96
--- NOTE | 2024-02-02 15:51 | PM.DS ---
DS: Providers Provider Date of Service: 02/02/24 Date of admission: 01/31/24 15:39 Primary care physician: Michael Shepard MD Consults: 01/26/24 09:44 Consult to General Surgery [place]ine [place] [facility] [place] Reason for consultation: s/p perc juan manuel... here with orthostatic hypotension DS: Diagnosis Discharge Diagnosis (1) Orthostatic hypotension: Status: Acute DS: Summary Hospital Course Hospital Course: From H&P on the day of admission 88-year-old female with a PMH significant for?HFpEF, aortic valve replacement s/p TAVR, mild dementia, hx of breast cancer, CAD, osteoporosis, asthma, lifelong anemia, and macular degeneration who presented to the ED last night for evaluation of dizziness. She was discharged yesterday from our facility after being treated with pancolitis and cholecystitis s/p percutaenous cholecystostomy tube placement by IR. She was considered for colonoscopy but declined and was considered suboptimately candidate given age and comorbidities. She did complete course of antibiotics. She states that she did have diarrhea on arrival last admission but has not had recurrent episodes in about 7-8 days. No vomiting. She was tolerating diet on discharge and states she was eating and drinking when she got home. She reports when she got home she was experiencing positional dizziness and felt unsteady. No other associated symptoms including sob, palpitations, headaches, vision changes, chest pain. No recent illness. No fevers, chills, urinary symptoms, cough, st, congestion. On arrival, VSS at rest, but significant for orthostatic hypotension which persisted despite 3L IVF. No leukocytosis. Stable anemia. Creat 1.13, was 0.95 on discharge. BUN 17. Na 133, CO2 21, Mg 1.5, lytes otherwise normal. CT abd/pelvis shows cholecystostomy tube in gallbladder which is noted to be distended and contains gallstones, as well as wall thickening, possible choledocolithiasis. No significant ductal dilitation. In the ED, received 3 L IVF. For orthostatic hypotension, patient was treated with IV fluid, likely related to decreased p.o. intake status post percutaneous cholecystostomy tube and kowalski colitis for previous admission. Nifedipine was discontinued. Symptoms resolved. She was able to ambulate without dizziness. She was evaluated by Physical therapy who recommended home with physical therapy services. Cholelithiasis with recent cholecystitis. Her percutaneous cholecystostomy drain was placed by IR on January 19. She was re-evaluated by surgery on this admission and no changes were required. They recommend the drain stays in place for total of 6 weeks. Patient should follow-up with Dr. Keith of General surgery as an outpatient. [facility] will assist with drain management Hypomagnesemia. Improved with replacement. Time Attestation Discharge Coordination Time (in mins): 40 Quality: Safe Use of Opioids Does Pt have an Active Cancer Diagnosis on the Problem List?: No Quality: Stroke Does the patient have a stroke diagnosis?: No Physical Exam Vital Signs: Vital Signs: Last Vital Signs Temp 97.2 F 02/02/24 15:07 Pulse 64 02/02/24 15:07 Resp 18 02/02/24 15:07 BP 120/62 02/02/24 15:07 Pulse Ox 96 02/02/24 15:07 O2 Del Method Room Air 02/02/24 15:07 BMI result Body Mass Index 29.7 Appearing in no acute distress head is normocephalic atraumatic eyes pupils are PERRLA sclera is anicteric mouth throat mucous membranes are intact and moist neck is supple no lymphadenopathy, no JVD noted lung sounds are clear to auscultation heart regular rate rhythm, clear S1, S2 positive bowel sounds, abdomen is soft, nontender neuro patient is alert x3, no focal deficits DS: Data Data Completed and Pending Completed studies during hospitalization [Text1]: Procedures Assistance with Respiratory Ventilation, Less than 24 Consecutive Hours, Continuous Positive Airway Pressure (11/22/20) Drainage of Gallbladder with Drainage Device, Percutaneous Approach (01/16/24) Transfusion of Nonautologous Red Blood Cells into Peripheral Vein, Percutaneous Approach (08/08/23) Discharge Plan Discharge Anticipated Discharge Date/Time: 02/02/24 15:48 Patient Disposition: Xfer Inpatient Rehab Fac Discharge Diagnosis: Orthostatic hypotension Referrals: [facility] [Outside] - 1 Day (short term rehab) [facility] [Outside] - 3-5 Days (please resume services after discharge from short term rehab) Philip Keith MD [Physician] - 4 Weeks Michael Shepadr MD [Primary Care Provider] - 1 Week Discharge Medications: Continued fexofenadine 180 mg tablet 180 mg PO BEDTIME ferrous sulfate 325 mg (65 mg iron) tablet 325 mg PO DAILY vitamin E succinate 400 unit tablet 400 unit PO DAILY metoprolol tartrate 25 mg tablet 25 mg PO BID Qty: 180 3RF fluticasone propionate 220 mcg/actuation HFA aerosol inhaler 2 puff inhalation BID 30 Days Qty: 12 5RF Rx Instructions: administer with spacer atorvastatin 80 mg tablet 80 mg PO BEDTIME Qty: 90 3RF aspirin 81 mg tablet,delayed release (DR/EC) 81 mg PO DAILY Qty: 90 3RF amitriptyline 10 mg tablet 10 mg PO BEDTIME Qty: 90 2RF cyanocobalamin (vitamin B-12) 1,000 mcg Tablet 1,000 mcg PO DAILY pyridoxine (vitamin B6) 100 mg Tablet 100 mg PO DAILY ascorbic acid (vitamin C) [Vitamin C] 500 mg Tablet 500 mg PO DAILY diphenhydramine HCl [Benadryl] 25 mg Capsule 25 mg PO DAILY PRN (Reason: Itching) PreserVision AREDS-2 250-90-40-1 mg Capsule 1 tab PO BID [facility] 750 mg-100 mg- 1.65 mg-108 mg Tablet 1 tab PO BID alendronate 70 mg tablet 70 mg PO MO@0900 lidocaine 4 % Adhesive Patch,Medicated 1 patch TOPICAL DAILY calcium carbonate-vitamin D3 600 mg-5 mcg (200 unit) Tablet 1 tab PO BEDTIME omeprazole 20 mg capsule,delayed release(DR/EC) 20 mg PO DAILY@0630 Rx Instructions: replaces prior dose of 20 mg once daily ceramides 1,3,6-II [CeraVe] Cream 1 appl TOPICAL 5XD PRN (Reason: SEBORRHEIC KERATOSES) oxycodone 5 mg Tablet 5 mg PO DAILY PRN (Reason: Pain (Scale Score 4-6)) (DME) blood pressure monitor Kit See Rx Instructions .Route Qty: 1 0RF Rx Instructions: As directed cholecalciferol (vitamin D3) 25 mcg (1,000 unit) capsule 25 mcg PO DAILY acetaminophen [Tylenol Extra Strength] 500 mg tablet 1,000 mg PO TID albuterol sulfate [ProAir HFA] 90 mcg/actuation HFA aerosol inhaler 2 puff inhalation Q6H PRN (Reason: Bronchodilation) Discontinued nifedipine 30 mg tablet extended release 30 mg PO DAILY Qty: 90 0RF doxycycline hyclate 100 mg capsule 100 mg PO DAILY MDD One tablet PRN (Reason: Dental Prophylaxis) Rx Instructions: Take one tablet 1 hour before dental procedure. Discharge Orders: Discharge Order (Routine); Ordered 02/02/24 Ordered By: Linda Montenegro Diet: Advance to usual diet Activity on Discharge: As tolerated Stand Alone Forms: Patient Portal Discharge page Print Language: Nigerian Care Plan Goals: See below Health Concerns: Orthostatic hypotension Plan of Treatment: Discontinue nifedipine recommend to change positions (lying to sitting, sitting to standing) slowly; stay adequately hydrated As per previous hospitalization cholecystostomy tube (placed 01/20/24) will need to remain in place for 6 weeks, recommend outpatient follow-up with surgeon Dr. Keith as previously planned Assessment: See discharge summary
--- NOTE | 2024-02-10 13:31 | PC.NURSE ---
On 01/31/24 5mg oxycodone PRN administered to pt for 9/10 pain per pt request.
== END 2024-02-02 17:12 | DRG 204 ==
LOC: HO.ED 01-26 07:18 → HO.EDOVER 01-26 12:00 → HO.S3 01-26 19:24
PROVIDERS: Physician Assistant Medical; Admitting Provider Physician Assistant; Emergency Provider Emergency Medicine; PCP Internal Medicine; Visit Provider Nurse Practitioner Acute Care
DX: I95.1 Orthostatic hypotension (principal); I11.0 Hypertensive heart disease with heart failure; I50.32 Chronic diastolic (congestive) heart failure; D64.9 Anemia, unspecified; I25.10 Atherosclerotic heart disease of native coronary artery without angina pectoris; F03.A0 Unspecified dementia, mild, without behavioral disturbance, psychotic disturbance, mood disturbance, and anxiety; J44.9 Chronic obstructive pulmonary disease, unspecified; K80.20 Calculus of gallbladder without cholecystitis without obstruction; M25.511 Pain in right shoulder; G89.29 Other chronic pain; Z20.822 Contact with and (suspected) exposure to COVID-19; Z95.5 Presence of coronary angioplasty implant and graft; Z95.2 Presence of prosthetic heart valve; Z87.891 Personal history of nicotine dependence; Z79.51 Long term (current) use of inhaled steroids; Z79.82 Long term (current) use of aspirin; Z79.899 Other long term (current) drug therapy
CPT/HCPCS: 36415; 71045; 74177; 80048; 80076; 81001; 83605; 83690; 83735; 84484; 85025; 85027; 85610; 87040; 87086; 87635; 93005; 94664; 97162; 97530; 99221; 99285; J1170; J1650; J2405; Q9967

== ENCOUNTER → 2024-01-25 23:33 | Outpatient (BNV) | payer BC, SELFPAY | PROVIDERS: Admitting Provider Physician Assistant; Emergency Provider Emergency Medicine; PCP Internal Medicine; Visit Provider Internal Medicine Cardiovascular Disease | DX: R94.31 Abnormal electrocardiogram [ECG] [EKG] (principal); R11.0 Nausea | CPT/HCPCS: 93010 ==

== ENCOUNTER → 2024-01-26 09:39 | Outpatient (BNV) | payer BC, SELFPAY | PROVIDERS: Admitting Provider Physician Assistant; Emergency Provider Emergency Medicine; PCP Internal Medicine; Visit Provider Surgery | DX: K81.9 Cholecystitis, unspecified (principal); Z43.4 Encounter for attention to other artificial openings of digestive tract | CPT/HCPCS: 99222; 99232; 99499 ==

== ENCOUNTER → 2024-01-26 09:39 | Outpatient (BNV) | payer BC, SELFPAY | PROVIDERS: Admitting Provider Physician Assistant; Emergency Provider Emergency Medicine; PCP Internal Medicine; Visit Provider Nurse Practitioner Acute Care | DX: I95.1 Orthostatic hypotension (principal) | CPT/HCPCS: 99223; 99231; 99232; 99239; 99499 ==

== ENCOUNTER 2024-02-15 14:59 | Outpatient (AMB) | payer BC, SELFPAY ==
--- NOTE | 2024-02-15 15:07 | MHC.OFFVIS ---
Intake Visit Reasons: pancolitis Intake Note: Patient here to f/u pancolitis and cholecystitis. Drain G-tube placement by IR on 01-31-24. Patient c/o: reports tube fell out just before today's appointment. ABD CT: 02-05-24. Camp Boss Required: No Accompanied by: daughter Marilee Uribe Allergies meperidine [From Demerol] Allergy (Severe, Verified 02/15/24 15:08) Nausea and Vomiting amoxicillin [AMOXICILLIN] Allergy (Intermediate, Verified 02/15/24 15:08) Rash cephalexin Allergy (Intermediate, Verified 02/15/24 15:08) Itching erythromycin base Allergy (Intermediate, Verified 02/15/24 15:08) Itching meloxicam Allergy (Intermediate, Verified 02/15/24 15:08) Abdominal Pain nitrofurantoin [From Macrobid] Allergy (Intermediate, Verified 02/15/24 15:08) Rash Penicillins Allergy (Intermediate, Verified 02/15/24 15:08) Rash Sulfa (Sulfonamide Antibiotics) [SULFA(SULFONAMIDE ANTIBIOTICS)] Allergy (Intermediate, Verified 02/15/24 15:08) Rash tramadol Allergy (Intermediate, Verified 02/15/24 15:08) Nausea and Vomiting codeine [CODEINE] Adverse Reaction (Intermediate, Verified 02/15/24 15:08) Nausea HPI Comments Details: Patient presents with her daughter. She is currently on extended care facility. She had a gallbladder drain placed proximally month ago. Unfortunately, the drain was inadvertently removed earlier today. She has a dressing on his now. She has no abdominal issues or complaints. Patient was known to me from a recent hospitalization. [facility] Medical History (Updated 02/10/24 @ 00:03 by Aurelia Sharp) PONV (postoperative nausea and vomiting) COPD (chronic obstructive pulmonary disease) CHF (congestive heart failure) Macular degeneration Dementia HTN (hypertension) Breast cancer Atherosclerotic cardiovascular disease Coronary artery disease Anemia Aortic stenosis, severe Primary osteoarthritis involving multiple joints Osteoporosis Benign essential HTN Asthma Allergic rhinitis Surgical History (Updated 02/15/24 @ 15:26 by Philip Keith MD) History of acute cholecystitis S/P TAVR (transcatheter aortic valve replacement) S/P cardiac catheterization History of hand surgery History of heart artery stent History of laminectomy History of kyphoplasty History of cataract surgery History of D&C Family History Father Hypertension Mother Thyroid cancer Sister Breast cancer Social History Household Members: None Household Members Other:: assisted living [facility] Housing: Assisted Living Facility Housing Other:: [facility] Are you a primary progressive care nurse to a significant other at home: No Do you presently have visiting nurse or other home services: No Alcohol intake: never Patient Tobacco Use Status: Former Tobacco user Tobacco use type: Cigarette Years Smoked: 5 e-Cigarette/Vaping Use: Never Used Second Hand Smoke Exposure: No Advance Directives Date on File: 02/06/21 service: No Current occupational status: retired Cognitive needs: Yes (walker/cane) Hearing needs: Yes (hearing aide) Vision needs: Yes (glasses) Physical Exam Eyes Other: Anicteric GI Other: Abdomen is soft. Benign. Drain site clean dry and intact with bandage. Assessment & Plan Assessment & Plan (1) History of acute cholecystitis: Code(s): Z87.19 - Personal history of other diseases of the digestive system Category: Surgical Plan I discussed with the patient and her daughter the current plan of the drain has been proved prematurely removed. Ideally, patient would have had a drain tube study demonstrating patency of the gallbladder prior to its removal. Current plan is to observe the patient with dressing applied to the drain site and should she develop acute severe abdominal symptoms, she needs to go to the emergency department use of a bile leak. Typically the IR drain is placed trans hepatically and prevents this situation. Also, we discussed regarding consideration for laparoscopic possible open cholecystectomy. Patient has a plethora of comorbidities including T AVR among other intercurrent medical problems. At present, they wished to be treated conservatively. Should she have any abdominal issues o complaints, the patient daughter have been instructed to contact the office or go to the emergency department. All questions answered. Patient will otherwise follow-up p.r.n.. Coding Level of Care Code Est Pt Level 4 (77297) Diagnoses History of acute cholecystitis Z87.19
== END 2024-02-15 15:23 | disposition home or self-care (01) ==
PROVIDERS: PCP Internal Medicine; Visit Provider Surgery
DX: Z87.19 Personal history of other diseases of the digestive system (principal)
CPT/HCPCS: 99214

== ENCOUNTER → 2024-02-15 14:59 | Outpatient (BNVA) | payer BC, SELFPAY | PROVIDERS: PCP Internal Medicine; Visit Provider Surgery ==

== ENCOUNTER 2024-03-04 12:20 | Outpatient (AMB) | payer BC, SELFPAY ==
--- NOTE | 2024-03-04 12:37 | A.OFFPC_ITS ---
Vital Signs 03/04/24 12:40 Height 5 ft 5 in Weight 161 lb 6 oz BMI 26.9 BP 130/62 Blood Pressure Location Lt brachial Position Sitting Pulse 53 Pulse Source Pulse Oximeter Pulse Oximetry (%) 96 Oxygen Delivery Method Room Air Intake Visit Reasons: HDF ~ Post hospital discharge FU Intake Note: Patient is here for hospital discharge follow up. Patient was discharged from [facility] on 02/02/24, Dinah Saab 02/02/24 - 02/23/24. Watch Repair Person Required: No Railroad Operating Engineer: Present Accompanied by: Daughter Allergies meperidine [From Demerol] Allergy (Severe, Verified 03/04/24 12:38) Nausea and Vomiting amoxicillin [AMOXICILLIN] Allergy (Intermediate, Verified 03/04/24 12:38) Rash cephalexin Allergy (Intermediate, Verified 03/04/24 12:38) Itching erythromycin base Allergy (Intermediate, Verified 03/04/24 12:38) Itching meloxicam Allergy (Intermediate, Verified 03/04/24 12:38) Abdominal Pain nitrofurantoin [From Macrobid] Allergy (Intermediate, Verified 03/04/24 12:38) Rash Penicillins Allergy (Intermediate, Verified 03/04/24 12:38) Rash Sulfa (Sulfonamide Antibiotics) [SULFA(SULFONAMIDE ANTIBIOTICS)] Allergy (Intermediate, Verified 03/04/24 12:38) Rash tramadol Allergy (Intermediate, Verified 03/04/24 12:38) Nausea and Vomiting codeine [CODEINE] Adverse Reaction (Intermediate, Verified 03/04/24 12:38) Nausea Tobacco use date assessed: 03/04/24 Fall risk assessment: No Falls in past year Last assessed Fall Risk: 03/04/24 Dental Screening Dental Screen Date: 10/01/23 HPI HPI Comments History of Present Illness Details 88 y/o female patient who presents to [facility] for HDF. Pt was admitted to [facility] hospital for positional dizziness and feeling unsteady. DOS: 01/31/24 and DOD: 02/02/24. She is S/p ERCP with tube placement for Pancolitis and cholecystitis. She was diagnosed with Orthostatic Hypotension in the hospital and was treated with IV fluids. Patient reports that her Cholecystomy Tube was accidentally removed during transfers in the SNF. She was able to f/u with GI (Dr. Keith) who recommended Cholecystectomy. Today Pt's daughter reports that Pt has been having memory gaps associated with fatigue and low energy. Pt reports being Anemic for years and nothing new. According to the Pt she does not have any memory problems and the daughter is over-reacting . Daughter requesting referral to Neurology. [facility] Medical History (Updated 02/15/24 @ 15:26 by Philip Keith MD) PONV (postoperative nausea and vomiting) COPD (chronic obstructive pulmonary disease) CHF (congestive heart failure) Macular degeneration Dementia HTN (hypertension) Breast cancer Atherosclerotic cardiovascular disease Coronary artery disease Anemia Aortic stenosis, severe Primary osteoarthritis involving multiple joints Osteoporosis Benign essential HTN Asthma Allergic rhinitis Surgical History History of acute cholecystitis S/P TAVR (transcatheter aortic valve replacement) S/P cardiac catheterization History of hand surgery History of heart artery stent History of laminectomy History of kyphoplasty History of cataract surgery History of D&C Family History Father Hypertension Mother Thyroid cancer Sister Breast cancer Social History Household Members: None Household Members Other:: assisted living [facility] Housing: Assisted Living Facility Housing Other:: [facility] Are you a primary healthcare management consultant to a significant other at home: No Do you presently have visiting nurse or other home services: No Alcohol intake: never Patient Tobacco Use Status: Former Tobacco user Tobacco use type: Cigarette Years Smoked: 5 e-Cigarette/Vaping Use: Never Used Second Hand Smoke Exposure: No Advance Directives Date on File: 02/06/21 service: No Current occupational status: retired Cognitive needs: Yes (walker/cane) Hearing needs: Yes (hearing aide) Vision needs: Yes (glasses) Questionnaire Thrive Questionnaire Date Thrive assessed: 01/27/24 BRUNO-7 AMB Questionnaire BRUNO-7 Date BRUNO - 7 assessed: 10/01/23 Source: Developed by Drs. Hossein Elizalde, Olinda Clark, Zak Lechuga and colleagues, with an educational yemi from [employer] Review of Systems Const All systems reviewed & are unremarkable except as noted in HPI and below Physical exam (Primary Care) Vital Signs: Last Vital Signs Pulse 53 03/04/24 12:40 BP 130/62 03/04/24 12:40 Pulse Ox 96 03/04/24 12:40 Oxygen Delivery Method Room Air 03/04/24 12:40 BMI result Body Mass Index 26.9 Tobacco/Smoking Status: Tobacco use Status Tobacco use date assessed 03/04/24 03/04/24 12:38 Patient Tobacco Use Status Former Tobacco user 03/04/24 12:38 Tobacco use type Cigarette 03/04/24 12:38 e-Cigarette/Vaping Use Never Used 03/04/24 12:38 Thrive Assessment: Date of Thrive Assessment Date Thrive assessed 01/27/24 03/04/24 12:38 Const General: no acute distress Nutritional Appearance: obese Orientation/consciousness: patient oriented x3 Limitations: ambulation with walker Resp Effort & Inspection: normal respiratory effort and able to speak in complete sentences Cardio Heart sounds: S1 normal heart sound present and S2 normal heart sound present Neuro General: patient oriented x3 and gait normal Psych Speech and movement: Normal speech and movement present Vital Signs: Last Vital Signs Pulse 53 03/04/24 12:40 BP 130/62 03/04/24 12:40 Pulse Ox 96 03/04/24 12:40 Oxygen Delivery Method Room Air 03/04/24 12:40 BMI result Body Mass Index 26.9 Const General: no acute distress Nutritional Appearance: obese Orientation/consciousness: patient oriented x3 Limitations: ambulation with walker Resp Effort & Inspection: normal respiratory effort and able to speak in complete sentences Cardio Heart sounds: S1 normal heart sound present and S2 normal heart sound present Neuro General: patient oriented x3 and gait normal Psych Speech and movement: Normal speech and movement present Vital Signs: Last Vital Signs Pulse 53 03/04/24 12:40 BP 130/62 03/04/24 12:40 Pulse Ox 96 03/04/24 12:40 Oxygen Delivery Method Room Air 03/04/24 12:40 BMI result Body Mass Index 26.9 Const General: no acute distress Nutritional Appearance: obese Orientation/consciousness: patient oriented x3 Limitations: ambulation with walker Resp Effort & Inspection: normal respiratory effort and able to speak in complete sentences Cardio Heart sounds: S1 normal heart sound present and S2 normal heart sound present Neuro Other: Walks with a walker General: patient oriented x3 and gait normal Psych Speech and movement: Normal speech and movement present Assessment and Plan Assessment & Plan (1) Orthostatic hypotension: Code(s): I95.1 - Orthostatic hypotension Plan: Since been resolved Denies dizziness or unsteady. (2) Cholelithiasis with acute cholecystitis: Code(s): K80.00 - Calculus of gallbladder with acute cholecystitis without obstruction Qualifiers: Biliary obstruction: without biliary obstruction Qualified Code(s): K80.00 - Calculus of gallbladder with acute cholecystitis without obstruction Plan: Continue f/u with Dr. Keith. (3) Memory changes: Code(s): R41.3 - Other amnesia Plan: Will have PCP placed referral to Neuro for further evaluation. Coding Level of Care Code Est Pt Level 4 (26469) Diagnoses Orthostatic hypotension I95.1 Calculus of gallbladder with acute cholecystitis without obstruction K80.00 Biliary obstruction: without biliary obstruction Memory changes R41.3 Comment Spent 20 minutes reviewing hospital notes and labs
[2024-03-04 12:40] VITALS: BP 130/62; PULSE 53; O2SAT 96; BMI 26.9
== END 2024-03-04 14:53 | disposition home or self-care (01) ==
PROVIDERS: PCP Internal Medicine; Visit Provider Nurse Practitioner Family
DX: I95.1 Orthostatic hypotension (principal); K80.00 Calculus of gallbladder with acute cholecystitis without obstruction; R41.3 Other amnesia
CPT/HCPCS: 99214

== ENCOUNTER 2024-03-22 13:45 | Outpatient (AMB) | payer BC, SELFPAY ==
[2024-03-22 13:57] VITALS: BP 120/58; PULSE 76; O2SAT 98; BMI 27.6
--- NOTE | 2024-03-22 13:57 | MHC.PC.OV ---
Vital Signs 03/22/24 13:57 Height 5 ft 5 in Weight 166 lb 0.4 oz BMI 27.6 BP 120/58 L Blood Pressure Location Lt brachial Position Sitting Pulse 76 Pulse Source Pulse Oximeter Pulse Oximetry (%) 98 Oxygen Delivery Method Room Air Intake Visit Reasons: Mild Dementia/ Neuro Referral Purchasing Contracting Clerk Required: No Allergies meperidine [From Demerol] Allergy (Severe, Verified 03/22/24 14:01) Nausea and Vomiting amoxicillin [AMOXICILLIN] Allergy (Intermediate, Verified 03/22/24 14:01) Rash cephalexin Allergy (Intermediate, Verified 03/22/24 14:01) Itching erythromycin base Allergy (Intermediate, Verified 03/22/24 14:01) Itching meloxicam Allergy (Intermediate, Verified 03/22/24 14:01) Abdominal Pain nitrofurantoin [From Macrobid] Allergy (Intermediate, Verified 03/22/24 14:01) Rash Penicillins Allergy (Intermediate, Verified 03/22/24 14:01) Rash Sulfa (Sulfonamide Antibiotics) [SULFA(SULFONAMIDE ANTIBIOTICS)] Allergy (Intermediate, Verified 03/22/24 14:01) Rash tramadol Allergy (Intermediate, Verified 03/22/24 14:01) Nausea and Vomiting codeine [CODEINE] Adverse Reaction (Intermediate, Verified 03/22/24 14:01) Nausea Tobacco use date assessed: 03/04/24 Fall risk assessment: No Falls in past year Last assessed Fall Risk: 03/22/24 Dental Screening Dental Screen Date: 10/01/23 HPI Mild Dementia/ Neuro Referral HPI Details 88-year-old female presents to the office to discuss her chronic medical conditions. She uses a walker to ambulate. She is accompanied by her daughter on this visit. Patient complains of right shoulder pain. She has chronic pain in this extremity and there has been no recent trauma or injury. She has seen several physicians and not much relief with the interventions they have done. Using Tylenol as needed. Patient lives in bioinformatics assistant living alone and needs helps with medications and meals. Sleep patterns are normal. Daughter is worried about declining cognition. Patient is able to answer all questions appropriately. She is able to recollect all the medications that she is taking. [facility] Medical History (Updated 04/01/24 @ 12:54 by Michael Shepard MD) PONV (postoperative nausea and vomiting) COPD (chronic obstructive pulmonary disease) CHF (congestive heart failure) Macular degeneration Dementia HTN (hypertension) Breast cancer Atherosclerotic cardiovascular disease Coronary artery disease Anemia Aortic stenosis, severe Primary osteoarthritis involving multiple joints Osteoporosis Benign essential HTN Asthma Allergic rhinitis Surgical History History of acute cholecystitis S/P TAVR (transcatheter aortic valve replacement) S/P cardiac catheterization History of hand surgery History of heart artery stent History of laminectomy History of kyphoplasty History of cataract surgery History of D&C Family History Father Hypertension Mother Thyroid cancer Sister Breast cancer Social History Household Members: None Household Members Other:: assisted living [facility] Housing: Assisted Living Facility Housing Other:: [facility] Are you a primary campground caretaker to a significant other at home: No Do you presently have visiting nurse or other home services: No Alcohol intake: never Patient Tobacco Use Status: Former Tobacco user Tobacco use type: Cigarette Years Smoked: 5 e-Cigarette/Vaping Use: Never Used Second Hand Smoke Exposure: No Advance Directives Date on File: 02/06/21 service: No Current occupational status: retired Cognitive needs: Yes (walker/cane) Hearing needs: Yes (hearing aide) Vision needs: Yes (glasses) Questionnaire Thrive Questionnaire Date Thrive assessed: 01/27/24 AUDIT C Alcohol Use Questionnaire (AUDIT-C) 1. How often do you have a drink containing alcohol?: Monthly or less 2. How many drinks containing alcohol do you have on a typical day when you are drinking?: 1 or 2 Total Score: 1 BRUNO-7 AMB Questionnaire BRUNO-7 Date BRUNO - 7 assessed: 10/01/23 Source: Developed by Drs. Hossein Elizalde, Olinda Clark, Zka Lechuga and colleagues, with an educational yemi from [employer]. Physical exam (Primary Care) Vital Signs: Last Vital Signs Pulse 76 03/22/24 13:57 BP 120/58 L 03/22/24 13:57 Pulse Ox 98 03/22/24 13:57 Oxygen Delivery Method Room Air 03/22/24 13:57 Care Plan Goal for BP management: Blood pressure is stable. Continue medications at same dosage. BMI result Body Mass Index 27.6 Tobacco/Smoking Status: Tobacco use Status Tobacco use date assessed 03/04/24 03/22/24 14:02 Patient Tobacco Use Status Former Tobacco user 03/22/24 14:02 Tobacco use type Cigarette 03/22/24 14:02 e-Cigarette/Vaping Use Never Used 03/22/24 14:02 Thrive Assessment: Date of Thrive Assessment Date Thrive assessed 01/27/24 03/22/24 14:02 Const General: cooperative and healthy appearing Nutritional Appearance: well nourished Orientation/consciousness: patient oriented x3 Limitations: no limitations HENMT Head: Yes normal to inspection Eyes General: appearance normal, both eyes and all related structures Neck Neck: Yes normal visual inspection Chest Chest palpation & inspection: normal palpation of entire chest wall Resp Effort & Inspection: normal respiratory effort Neuro General: patient oriented x3 Extrem Other: Right shoulder: No AC joint tenderness. Discomfort on abduction, flexion or extension of the arm at the shoulder. Full range of motion not possible. Due to pain. Assessment and Plan Assessment & Plan (1) Acute on chronic anemia: Code(s): D64.9 - Anemia, unspecified Plan: Patient is receiving Procrit on a regular basis from her project management consultant. This is helping her with her activities of daily living, as she has more strength to do the same. (2) Chronic right shoulder pain: Code(s): M25.511 - Pain in right shoulder; G89.29 - Other chronic pain Plan: This is affecting her quality of life. Despite several appointments, consults and physical therapy patient continues to have pain in the right shoulder. Empiric treatment with anti-inflammatories. (3) CHF (congestive heart failure): Comment: prior to TAVR surgery Code(s): I50.9 - Heart failure, unspecified Plan: 15 minutes spent on reviewing her condition, lab work and medical records from elsewhere. Medications reviewed. Patient was advised to continue medications at same dosage. Coding Level of Care Code Est Pt Level 4 (63334) Complex EM visit Add On G2211 Diagnoses Acute on chronic anemia D64.9 Chronic right shoulder pain M25.511; G89.29 CHF (congestive heart failure) I50.9
== END 2024-03-22 14:31 | disposition home or self-care (01) ==
PROVIDERS: PCP Internal Medicine; Visit Provider Internal Medicine
DX: D64.9 Anemia, unspecified (principal); M25.511 Pain in right shoulder; G89.29 Other chronic pain; I50.9 Heart failure, unspecified
CPT/HCPCS: 99214

== ENCOUNTER 2024-05-04 14:46 | Outpatient (AMB) | payer BC, SELFPAY ==
--- NOTE | 2024-05-04 14:58 | MHC.OFFVIS ---
Vital Signs 05/04/24 14:59 Height 5 ft 5 in Weight 167 lb 8.821 oz BMI 27.9 BP 142/58 H Blood Pressure Location Lt brachial Position Sitting Pulse 64 Pulse Source Pulse Oximeter Pulse Oximetry (%) 99 Oxygen Delivery Method Room Air Intake Visit Reasons: COPD Intake Note: pt is here for follow up and states she is feeling well, some coughing, but would like to discuss the upcoming possible procedure to be done by pain management. 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 Required: No Allergies meperidine [From Demerol] Allergy (Severe, Verified 05/04/24 15:34) Nausea and Vomiting amoxicillin [AMOXICILLIN] Allergy (Intermediate, Verified 05/04/24 15:34) Rash cephalexin Allergy (Intermediate, Verified 05/04/24 15:34) Itching erythromycin base Allergy (Intermediate, Verified 05/04/24 15:34) Itching meloxicam Allergy (Intermediate, Verified 05/04/24 15:34) Abdominal Pain nitrofurantoin [From Macrobid] Allergy (Intermediate, Verified 05/04/24 15:34) Rash Penicillins Allergy (Intermediate, Verified 05/04/24 15:34) Rash Sulfa (Sulfonamide Antibiotics) [SULFA(SULFONAMIDE ANTIBIOTICS)] Allergy (Intermediate, Verified 05/04/24 15:34) Rash tramadol Allergy (Intermediate, Verified 05/04/24 15:34) Nausea and Vomiting codeine [CODEINE] Adverse Reaction (Intermediate, Verified 05/04/24 15:34) Nausea Medication List - Last Reconciled 05/04/24 by Marie Powers MD acetaminophen (Tylenol Extra Strength) 1,000 mg PO TID albuterol sulfate 90 mcg/actuation (ProAir HFA) 2 puffs inhalation Q6H PRN alendronate 70 mg PO MO@0900 amitriptyline 10 mg PO BEDTIME ascorbic acid (vitamin C) (Vitamin C) 500 mg PO DAILY aspirin 81 mg PO DAILY atorvastatin 80 mg PO BEDTIME blood pressure monitor As directed calcium carbonate-vitamin D3 600 mg-5 mcg (200 unit) 1 tab PO BEDTIME ceramides 1,3,6-II (CeraVe topical cream) 1 appl topical 5XD PRN cholecalciferol (vitamin D3) 25 mcg PO DAILY cyanocobalamin (vitamin B-12) 1,000 mcg PO DAILY diphenhydramine HCl (Benadryl) 25 mg PO DAILY PRN doxycycline hyclate 100 mg PO DAILY epoetin kamilah-epbx (Retacrit) units subcut ONCE PRN ferrous sulfate 325 mg PO DAILY fexofenadine 180 mg PO BEDTIME fluticasone propionate 220 mcg/actuation 2 puffs inhalation BID 30 days fopetavs-kadfk-cvfwl-CF borate 750 mg-100 mg- 1.65 mg-108 mg ([facility] [employer] [facility]) 1 tab PO BID lidocaine 4% 1 patch topical DAILY metoprolol tartrate 25 mg PO BID omeprazole 20 mg PO DAILY@0630 ondansetron 4 mg PO Q8H PRN pyridoxine (vitamin B6) 100 mg PO DAILY vit C,L-Oy-eoiiq-lutein-zeaxan 250-90-40-1 mg (PreserVision AREDS-2) 1 tab PO BID vitamin E succinate 400 units PO DAILY Do you need a note to return to daycare/school/sports/work: No HPI HPI COPD: Details: MELVIN SIMS IS NOW 88 YEARS OLD FEMALE, COMES FOR HER FOLLOW-UP BECAUSE SHE HAS CHRONIC BRONCHIAL ASTHMA. SHE USES FLOVENT-220 2 PUFFS B.I.D. AND ALBUTEROL HFA ONLY P.R.N. RESCUE INHALER. BREATHING IS HOLDING VERY STABLE, SHE HAS VERY LITTLE COUGH, AND ALSO HAS HAD NO WHEEZING. IN JANUARY OF THIS YEAR SHE WAS TREATED FOR ACUTE CHOLECYSTITIS, SHE WAS IN HOSPITAL FOR SEVERAL DAYS, SHE WAS TREATED WITH CHOLECYSTOSTOMY , SENT TO REHAB PLACE WITH THE TUBE IN. THE TUBE CAME OUT BY ITSELF AND THE STOMA HEALED, SHE HAS HAD NO PROBLEM EXCEPT FOR MILD INTERMITTENT NAUSEA. NOW SHE IS. LIVING AT [facility] [place]. HER MAIN ISSUE IS ONGOING SEVERE PAIN IN THE RIGHT SHOULDER, AND SHE IS AWAITING TO HAVE A STIMULATOR PLACED IN THE SHOULDER IN THE NEAR FUTURE. [facility] Medical History PONV (postoperative nausea and vomiting) COPD (chronic obstructive pulmonary disease) CHF (congestive heart failure) Macular degeneration Dementia HTN (hypertension) Breast cancer Atherosclerotic cardiovascular disease Coronary artery disease Anemia Aortic stenosis, severe Primary osteoarthritis involving multiple joints Osteoporosis Benign essential HTN Asthma Allergic rhinitis Surgical History History of acute cholecystitis S/P TAVR (transcatheter aortic valve replacement) S/P cardiac catheterization History of hand surgery History of heart artery stent History of laminectomy History of kyphoplasty History of cataract surgery History of D&C Family History Father Hypertension Mother Thyroid cancer Sister Breast cancer Social History Household Members: None Household Members Other:: assisted living [facility] Housing: Assisted Living Facility Housing Other:: [facility] Are you a primary progressive care unit registered nurse to a significant other at home: No Do you presently have visiting nurse or other home services: No Alcohol intake: never Patient Tobacco Use Status: Former Tobacco user Tobacco use type: Cigarette Years Smoked: 5 e-Cigarette/Vaping Use: Never Used Second Hand Smoke Exposure: No Advance Directives Date on File: 02/06/21 service: No Current occupational status: retired Cognitive needs: Yes (walker/cane) Hearing needs: Yes (hearing aide) Vision needs: Yes (glasses) Review of Systems Const All systems reviewed & are unremarkable except as noted in HPI and below Eyes Reports no additional complaints ENT Reports nasal congestion (MILD OFF AND ON) Card Denies chest pain, Denies irregular heart rhythm, Denies leg edema and Reports dyspnea on exertion Resp Reports as per HPI and Reports dyspnea on exertion GI Reports heartburn (Controlled with med) Reports urinary incontinence Musc Reports back pain and Reports arthralgias (Shoulders and knees ) Skin/Breast Reports system reviewed and no additional complaints, except as documented Neuro Reports no additional complaints (Generally slow and weak) Psych Reports no additional complaints Physical Exam Vital Signs: Last Vital Signs Pulse 64 05/04/24 14:59 BP 142/58 H 05/04/24 14:59 Pulse Ox 99 05/04/24 14:59 Oxygen Delivery Method Room Air 05/04/24 14:59 BMI result Body Mass Index 27.9 Const Other: Chronically sick and pale looking, walks with walker. General: comfortable, no acute distress, alert and awake Orientation/consciousness: patient oriented x3 HEENT Head: Yes normal to inspection General nose exam: No nasal polyps present and No nasal discharge present Face and sinus: Yes sinuses nontender Mouth: oropharynx normal Throat: Yes posterior oropharynx normal Eyes General: appearance normal, both eyes and all related structures Neck Neck: Yes normal visual inspection, Yes no lymphadenopathy, Yes trachea midline and Yes no JVD Thyroid: Thyroid normal Chest Chest palpation & inspection: normal inspection of the chest, normal palpation of entire chest wall and no tenderness Resp Effort & Inspection: normal respiratory effort and no cough Auscultation: clear to auscultation bilaterally, no crackles and no wheezes Percussion: percussion normal Cardio Palpation: normal PMI Rate: regular rate Rhythm: regular rhythm Heart sounds: no gallops and no murmurs GI Palpation (GI): Soft to palpation, nontender, No hepatosplenomegaly present and no masses Auscultation: normal bowel sounds Back/Spine/Pelvis Thoracic/Lumbar Spine: thoracic and lumbar spine normal to inspection, thoraco-lumbar ROM limited and thoraco-lumbar spasm Skin General skin exam: no rashes or lesions noted and other (Multiple echymotic spots on the arms .) Neuro General: patient oriented x3, No gait normal (Slow secondary to degenerative arthritis of the spine and patient uses walk) and no focal motor deficits Cranial nerves: Yes CN's II-XII intact bilaterally Extrem General: Yes normal to inspection, Yes no calf tenderness and Yes edema (Mild pitting edema around the ankles) Psych Appearance: grossly normal and well kempt Speech and movement: Normal speech and movement present Assessment & Plan Assessment & Plan (1) Asthma: Comment: Chronic, bronchial asthma, moderate,, well controlled at this time. [place] :Continue Flovent -220 2 puffs b.i.d. and ProAir 2 puffs Q 4-6 hours p.r.n. Code(s): J45.909 - Unspecified asthma, uncomplicated Category: Medical Qualifiers: Asthma severity: mild Asthma persistence: unspecified Asthma complication type: uncomplicated Qualified Code(s): J45.909 - Unspecified asthma, uncomplicated Plan: CONTINUE THE ABOVE MEDS LISTED (2) Allergic rhinitis: Comment: Chronic , well controlled . Does not need active Meds . SHE IS NOT ON IMMUNOTHERAPY ANYMORE. Code(s): J30.9 - Allergic rhinitis, unspecified Category: Medical Plan: MAY USE FEXOFENADINE 180 MG ONCE A DAY P.R.N. FOR NASAL CONGESTION (3) Pulmonary hypertension: Comment: SECONDARY TO CARDIAC VAVULAR DISEASE, AND CHRONIC BRONCHIAL ASTHMA. STABLE. Code(s): I27.20 - Pulmonary hypertension, unspecified Category: Medical Plan: CONTINUE CURRENT MEDICATIONS Plan * FAR PREOP CLEARANCE IS CONCERNED , FROM PULMONARY POINT OF VIEW THERE IS NO CONTRAINDICATION, Coding Level of Care Code Est Pt Level 4 (67841) Diagnoses Mild asthma without complication, unspecified whether persistent J45.909 Asthma severity: mild Asthma persistence: unspecified Asthma complication type: uncomplicated Allergic rhinitis J30.9 Pulmonary hypertension I27.20
[2024-05-04 14:59] VITALS: BP 142/58; PULSE 64; O2SAT 99; BMI 27.9
== END 2024-05-04 15:35 | disposition home or self-care (01) ==
PROVIDERS: PCP Internal Medicine; Visit Provider Internal Medicine
DX: J45.909 Unspecified asthma, uncomplicated (principal); J30.9 Allergic rhinitis, unspecified; I27.20 Pulmonary hypertension, unspecified
CPT/HCPCS: 99214

== ENCOUNTER → 2024-05-04 14:46 | Outpatient (BNVA) | payer BC, SELFPAY | PROVIDERS: PCP Internal Medicine; Visit Provider Internal Medicine ==

== ENCOUNTER 2024-05-13 13:57 | Outpatient (AMB) | payer BC, SELFPAY ==
[2024-05-13 14:00] VITALS: BP 120/60; PULSE 72; BMI 27.1
--- NOTE | 2024-05-13 14:00 | MHC.OFFVIS ---
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: No Accompanied by: Daughter Allergies meperidine [From Demerol] Allergy (Severe, Verified 05/04/24 15:34) Nausea and Vomiting amoxicillin [AMOXICILLIN] Allergy (Intermediate, Verified 05/04/24 15:34) Rash cephalexin Allergy (Intermediate, Verified 05/04/24 15:34) Itching erythromycin base Allergy (Intermediate, Verified 05/04/24 15:34) Itching meloxicam Allergy (Intermediate, Verified 05/04/24 15:34) Abdominal Pain nitrofurantoin [From Macrobid] Allergy (Intermediate, Verified 05/04/24 15:34) Rash Penicillins Allergy (Intermediate, Verified 05/04/24 15:34) Rash Sulfa (Sulfonamide Antibiotics) [SULFA(SULFONAMIDE ANTIBIOTICS)] Allergy (Intermediate, Verified 05/04/24 15:34) Rash tramadol Allergy (Intermediate, Verified 05/04/24 15:34) Nausea and Vomiting codeine [CODEINE] Adverse Reaction (Intermediate, Verified 05/04/24 15:34) Nausea Medication List - Last Reconciled 05/13/24 by CARLOS Strong acetaminophen (Tylenol Extra Strength) 1,000 mg PO TID albuterol sulfate 90 mcg/actuation (ProAir HFA) 2 puffs inhalation Q6H PRN alendronate 70 mg PO MO@0900 amitriptyline 10 mg PO BEDTIME ascorbic acid (vitamin C) (Vitamin C) 500 mg PO DAILY aspirin 81 mg PO DAILY atorvastatin 80 mg PO BEDTIME blood pressure monitor As directed calcium carbonate-vitamin D3 600 mg-5 mcg (200 unit) 1 tab PO BEDTIME ceramides 1,3,6-II (CeraVe topical cream) 1 appl topical 5XD PRN cholecalciferol (vitamin D3) 25 mcg PO DAILY cyanocobalamin (vitamin B-12) 1,000 mcg PO DAILY diphenhydramine HCl (Benadryl) 25 mg PO DAILY PRN doxycycline hyclate 100 mg PO DAILY epoetin kamilah-epbx (Retacrit) units subcut ONCE PRN ferrous sulfate 325 mg PO DAILY fexofenadine 180 mg PO BEDTIME fluticasone propionate 220 mcg/actuation 2 puffs inhalation BID 30 days kbvjrdfc-ywvfd-fhyfc-CF borate 750 mg-100 mg- 1.65 mg-108 mg ([facility] [employer] [facility]) 1 tab PO BID lidocaine 4% 1 patch topical DAILY metoprolol tartrate 25 mg PO BID omeprazole 20 mg PO DAILY@0630 ondansetron 4 mg PO Q8H PRN pyridoxine (vitamin B6) 100 mg PO DAILY vit C,X-Go-uplmq-lutein-zeaxan 250-90-40-1 mg (PreserVision AREDS-2) 1 tab PO BID vitamin E succinate 400 units PO DAILY PFSH Medical History PONV (postoperative nausea and vomiting) COPD (chronic obstructive pulmonary disease) CHF (congestive heart failure) Macular degeneration Dementia HTN (hypertension) Breast cancer Atherosclerotic cardiovascular disease Coronary artery disease Anemia Aortic stenosis, severe Primary osteoarthritis involving multiple joints Osteoporosis Benign essential HTN Asthma Allergic rhinitis Surgical History History of acute cholecystitis S/P TAVR (transcatheter aortic valve replacement) S/P cardiac catheterization History of hand surgery History of heart artery stent History of laminectomy History of kyphoplasty History of cataract surgery History of D&C Family History Father Hypertension Mother Thyroid cancer Sister Breast cancer Social History Household Members: None Household Members Other:: assisted living [facility] Housing: Assisted Living Facility Housing Other:: [facility] Are you a primary director of healthcare systems to a significant other at home: No Do you presently have visiting nurse or other home services: No Alcohol intake: never Patient Tobacco Use Status: Former Tobacco user Tobacco use type: Cigarette Years Smoked: 5 e-Cigarette/Vaping Use: Never Used Second Hand Smoke Exposure: No Advance Directives Date on File: 02/06/21 service: No Current occupational status: retired Cognitive needs: Yes (walker/cane) Hearing needs: Yes (hearing aide) Vision needs: Yes (glasses) Review of Systems Const All systems reviewed & are unremarkable except as noted in HPI and below Denies chills, Denies fatigue, Denies fever(s), Denies frequent falls, Denies weakness, Denies weight gain and Denies weight loss ENT Denies dizziness Card Denies chest pain, Denies leg edema, Denies lightheadedness, Denies palpitations, Denies dyspnea and Denies dyspnea on exertion Resp Denies cough, Denies dyspnea and Denies dyspnea on exertion GI Denies hematochezia Musc Details: pain in right shoulder Denies abnormal gait, Denies muscle weakness, Denies numbness, Denies radiating pain into limb and Denies tingling Neuro Denies abnormal gait, Denies dizziness, Denies frequent falls, Denies numbness, Denies tingling and Denies weakness Endo Denies fatigue and Denies palpitations Physical Exam Vital Signs: Last Vital Signs Pulse 72 05/13/24 14:00 BP 120/60 05/13/24 14:00 BMI result Body Mass Index 27.1 Const General: cooperative, healthy appearing, comfortable and no acute distress Orientation/consciousness: patient oriented x3 Resp Effort & Inspection: normal respiratory effort Auscultation: clear to auscultation bilaterally, no rales, no rhonchi and no wheezes Cardio Jugular venous distension: no JVD Rate: regular rate Rhythm: regular rhythm Heart sounds: S1 normal heart sound present, S2 normal heart sound present, no murmurs and no rubs Neuro General: patient oriented x3 Extrem General: Yes normal to inspection and No no pedal edema Psych Appearance: grossly normal Mental Status: mental status grossly normal Speech and movement: Normal speech and movement present Office Procedures EKG Details: Today, read by me, normal sinus rhythm, left axis deviation, LVH with repolarization abnormality, can not exclude anterior infarct, rate 72, QTC 418 millisecond [id number], Complete Assessment & Plan Assessment & Plan (1) S/P TAVR (transcatheter aortic valve replacement): Comment: 2020 Code(s): Z95.2 - Presence of prosthetic heart valve Category: Surgical Plan: History of severe aortic stenosis. She underwent TAVR procedure 2020. Last echo in our system 02/06/2021 showed EF 60-65%, bioprosthetic aortic valve is functioning normally. She has done well since that time. She does not have a murmur noted on exam. She has not had any issues with Congestive heart failure. Will update echocardiogram as she is hoping to a surgical procedure in the near future. (2) Coronary artery disease: Comment: w/stent 2020 Code(s): I25.10 - Atherosclerotic heart disease of [place] coronary artery without angina pectoris Category: Medical Plan: History of coronary artery disease. Cardiac catheterization done prior to her TAVR procedure shows multivessel CAD with SHOWROOM CONSULTANT of the RCA and left circumflex. Ramus ostial had 99% stenosis and LAURE was placed. She had mild LAD disease. She has done well since then with no anginal sounding symptoms. Today she denies chest discomfort at rest or during activity. She is mostly sedentary. She is on aspirin, atorvastatin 80 mg daily with LDL goal less than 70. Last labs in our system 10/08/2022 showing LDL 78. He is on metoprolol XL. EKG done today showing sinus rhythm, LVH, anterior infarct, overall no significant change in appearance from last EKG, rate 72. Will be updating echocardiogram as above. (3) S/P cardiac catheterization: Comment: 11/27/20 left circumflex 100% stenosis, chronic total occlusion, RCA mid 100% stenosis, chronic total occlusion,, mild LAD disease, ramus ostial 99% stenosis, LAURE placed Code(s): Z98.890 - Other specified postprocedural states Category: Surgical Plan: As above (4) Benign essential HTN: Code(s): I10 - Essential (primary) hypertension Category: Medical Plan: Well controlled at this time. Continue metoprolol. (5) Preop cardiovascular exam: Code(s): Z01.810 - Encounter for preprocedural cardiovascular examination Category: Medical Plan: Daughter tells me patient is hoping to have a stimulator placed into her right shoulder to help with pain relief. Be permanent stimulator will require general anesthesia. Will reach out to that provider to see if other anesthesia options are available. Will update echocardiogram then plan to discuss case with her primary spare hand carding Dr. Palacios to better determine cardiac risk. Plan Time spent on chart review, documentation, interview and assessment Orders: Orders CA echo transthoracic complete Today I25.10 - Atherosclerotic heart disease of [place] coronary artery without angina pectoris, Z01.810 - Encounter for preprocedural cardiovascular examination, Z95.2 - Presence of prosthetic heart valve Coding Level of Care Code Est Pt Level 4 (06104) Diagnoses S/P TAVR (transcatheter aortic valve replacement) Z95.2 Coronary artery disease I25.10 S/P cardiac catheterization Z98.890 Benign essential HTN I10 Preop cardiovascular exam Z01.810 CPT Codes EKG - CPT: 06677-[id number], Complete ([id number]) Time Spent (min) 36
== END 2024-05-13 14:46 | disposition home or self-care (01) ==
PROVIDERS: PCP Internal Medicine; Visit Provider Nurse Practitioner Family
DX: Z95.2 Presence of prosthetic heart valve (principal); I25.10 Atherosclerotic heart disease of native coronary artery without angina pectoris; Z98.890 Other specified postprocedural states; I10 Essential (primary) hypertension; Z01.810 Encounter for preprocedural cardiovascular examination
CPT/HCPCS: 93010; 99214

== ENCOUNTER → 2024-05-13 13:57 | Outpatient (BNVA) | payer BC, SELFPAY | PROVIDERS: PCP Internal Medicine; Visit Provider Nurse Practitioner Family | DX: Z01.810 Encounter for preprocedural cardiovascular examination (principal); I25.10 Atherosclerotic heart disease of native coronary artery without angina pectoris; I10 Essential (primary) hypertension; Z95.2 Presence of prosthetic heart valve; Z79.82 Long term (current) use of aspirin; Z79.899 Other long term (current) drug therapy | CPT/HCPCS: 93005 ==

== ENCOUNTER → 2024-05-18 13:52 | Outpatient (REF) | payer BC, SELFPAY ==
--- NOTE | 2024-05-18 13:56 | CA_ITS ---
Transthoracic Echocardiogram Patient (Last, First, Middle): Beena Davison, Gender: Female Date of : 1935 Age: 88 Procedure Date: 05/18/2024 Procedure Type: Transthoracic Echocardiogram Location: OP Height: 165.1 cm Weight: 73.94 kg BSA: 1.81 m2 Heart Rate: 60 bpm BP: 120 / 62 mmHg Booth Cashier: SB Referring MD: Loly Figueroa DRUG DISCOVERY INFORMATICS SPECIALISTMarcus Symptoms: I25.10 - Atherosclerotic heart disease of [place] coronary artery without... Study Quality: Adequate ECG Rhythm: Sinus Conclusions: - The left ventricular systolic function is normal. The visually estimated ejection fraction is between 60-65%. - There is severe septal asymmetric hypertrophy. - The basal inferior segment is akinetic. - A bioprosthetic aortic valve is present. The prosthetic aortic valve appears to be functioning normally. - There is mild mitral valve regurgitation. Findings Left Ventricle Normal left ventricular cavity size. The left ventricular systolic function is normal. The visually estimated ejection fraction is between 60-65%. There is evidence of regional wall motion abnormalities. Evidence suggests grade II (moderate) diastolic dysfunction. There is severe septal asymmetric hypertrophy. Wall Motion Rest Echo Findings The basal inferior segment is akinetic. Right Ventricle Normal right ventricular cavity size. There is low normal right ventricular systolic function. Atria The left atrium is mildly dilated. The right atrium is normal in size. Aortic Valve A bioprosthetic aortic valve is present. The prosthetic aortic valve appears to be functioning normally. Trace para-valvular and valvular regurgitation. Mitral Valve There is mild mitral annular calcification. There is mild mitral valve regurgitation. There is no mitral valve stenosis. Pulmonic Valve The pulmonic valve is likely normal. Tricuspid Valve There is mild tricuspid valve regurgitation. There is no evidence of pulmonary hypertension. Great Vessels The asc aorta is normal in size. Venous The inferior vena cava was not well visualized. Pericardium/Pleural There is no evidence of pericardial effusion. Prior Study Comparison No significant change compared to prior study dated: 02/06/2021. Measurements 2D Linear Measurements IVSd: 1.68 0.6-0.9/0.6-1.0 cm LVIDd: 6.03 3.9-5.3/4.2-5.9 cm LVIDd Index: 3.33 2.4-3.2/2.2-3.1 cm/m2 LVIDs: 4.49 2.0-3.6 cm LVPWd: 0.57 0.7-1.1 cm LA Diam: 4.60 2.7-3.8/3.0-4.0 cm LAIDs Index: 2.54 1.5-2.3 cm/m2 LV Mass: 363.20 67-162/88-224 g LV Mass Index: 200.66 43-95/49-115 g/m2 LVOT Diam: 2.00 3.0+(-)1.3 cm 2D Systolic Function EF 4C: 50.30 >55% EF 2C: 55.80 >55% EF BiP: 53.60 >55% Mitral Valve MV Pk E: 0.83 MV PK A: 0.84 MV Decel Time: 182.00 E/A: 1.00 E'Lateral: 8.59 E'Medial: 3.70 E/E' Med: 22.40 E/E' Lat: 9.60 PHT: 53.00 MVA PHT: 4.15 Decel [place]: 4.53 Aortic Valve AoV Pk Tanvir: 2.41 AoV Mn Tanvir: 1.75 AoV VTI: 0.55 AoV Pk Grad: 23.00 Aov Mn Grad: 14.00 SIDRA Cont.VTI: 0.90 LVOT LVOT Pk Tanvir: 0.67 LVOT Mn Tanvir: 0.48 LVOT VTI: 0.16 LVOT Pk Grad: 2.00 LVOT Mn Grad: 1.00 LVOT Diam: 2.00 LVOT Area: 3.14 Diastolic Function MV Pk E: 0.83 MV Pk A: 0.84 E/A: 1.00 E'Medial: 3.70 E/E' Med: 22.40 E' Laterial: 8.59 E/E' Lat: 9.60 Right Ventricle TVS' Tanvir: 9.10 Tricuspid Valve TR Pk Tanvir: 2.31 TR Pk Grad: 21.00 RA Press: 3.00 RVSP: 24.00 Great Vessels Aorta Ao Asc: 3.40 2.1-3.4 cm Pulmonary Valve PV Pk Tanvir: 0.81 Peak PV Grad: 3.00 Updated in Other Vendor System with Status of Final Edu Louis MD electronically signed on 05/19/2024 12:19:13 PM with status of Final
== END ==
LOC: HO.CARD 13:52
PROVIDERS: PCP Internal Medicine; Visit Provider Nurse Practitioner Family
DX: Z01.810 Encounter for preprocedural cardiovascular examination (principal); I25.10 Atherosclerotic heart disease of native coronary artery without angina pectoris; Z95.2 Presence of prosthetic heart valve
CPT/HCPCS: 93306

== ENCOUNTER → 2024-05-18 13:56 | Outpatient (BNV) | payer BC, SELFPAY | PROVIDERS: PCP Internal Medicine; Visit Provider Internal Medicine | DX: I42.2 Other hypertrophic cardiomyopathy (principal); Z95.3 Presence of xenogenic heart valve; I34.0 Nonrheumatic mitral (valve) insufficiency; I36.1 Nonrheumatic tricuspid (valve) insufficiency; R93.1 Abnormal findings on diagnostic imaging of heart and coronary circulation | CPT/HCPCS: 93306 ==

== ENCOUNTER 2024-06-15 11:58 | Day surgery (SDC) | payer BC, SELFPAY ==
[2024-06-13 16:32] VITALS: BMI 27.1
--- NOTE | 2024-06-14 12:38 | P.CONAN_ITS ---
HPI - Anesthesia Eval Consult details Narrative: 88yo F for Right Suprascapular nerve Peripheral Nerve Stimulator Trial PMFSH Active Problems Active Problems: All Active Problems Preop cardiovascular exam (Acute) CHF (congestive heart failure) (Acute) History of acute cholecystitis (Acute) Elevated liver enzymes (Acute) Colitis (Acute) Acute on chronic anemia (Acute) Heme positive stool (Acute) Weakness (Acute) Acute UTI (Acute) Chronic diastolic heart failure (Acute) Greater trochanteric bursitis of left hip (Acute) Lumbar spondylosis (Acute) Lumbar back pain with radiculopathy affecting left lower extremity (Acute) Lumbar degenerative disc disease (Acute) Bilateral hip pain (Acute) History of recent fall (Acute) Sacroiliac joint pain (Acute) Muscle spasms of neck (Acute) Chronic right shoulder pain (Acute) Fatigue (Acute) Paronychia of fifth toe of right foot (Acute) Dementia (Acute) Age-related macular degeneration (Acute) Biliary colic (Acute) Eyelid cellulitis (Acute) Primary osteoarthritis, right shoulder (Acute) Bursitis of right shoulder (Acute) Degenerative joint disease of thoracic spine (Acute) Screening for breast cancer (Acute) Annual physical exam (Acute) Age-related osteoporosis without current pathological fracture (Acute) Coronary artery disease (Acute) Cholelithiasis (Acute) Acute respiratory failure with hypoxia (Acute) Status post laminectomy (Acute) Pulmonary hypertension (Acute) Severe mitral valve regurgitation (Acute) S/P lumbar laminectomy (Acute) Non-ST elevation ME (NSTEMI) (Acute) Congestive heart failure (Acute) Musculoskeletal disorder of neck (Acute) Pre-operative clearance (Acute) Acute laryngitis (Acute) Breast cancer (Acute) S/P TAVR (transcatheter aortic valve replacement) (Acute) Coronary artery disease (Acute) S/P cardiac catheterization (Acute) Anemia (Acute) Primary osteoarthritis involving multiple joints (Acute) Osteoporosis (Acute) Benign essential HTN (Acute) Asthma (Acute) Allergic rhinitis (Acute) Past Medical History Medical History PONV (postoperative nausea and vomiting) COPD (chronic obstructive pulmonary disease) CHF (congestive heart failure) Macular degeneration Dementia HTN (hypertension) Breast cancer Atherosclerotic cardiovascular disease Coronary artery disease Anemia Aortic stenosis, severe Primary osteoarthritis involving multiple joints Osteoporosis Benign essential HTN Asthma Allergic rhinitis Family History Family History Father Hypertension Mother Thyroid cancer Sister Breast cancer Family history of problems with anesthesia: No Surgical History Surgical History History of acute cholecystitis S/P TAVR (transcatheter aortic valve replacement) S/P cardiac catheterization History of hand surgery History of heart artery stent History of laminectomy History of kyphoplasty History of cataract surgery History of D&C History of Problems with Anesthesia: Yes (N/V with GA) Social History Social History Household Members: None Household Members Other:: assisted living [facility] Housing: Assisted Living Facility Housing Other:: [facility] Are you a primary aged or disabled care worker to a significant other at home: No Do you presently have visiting nurse or other home services: No Alcohol intake: never Patient Tobacco Use Status: Former Tobacco user Tobacco use type: Cigarette Years Smoked: 5 e-Cigarette/Vaping Use: Never Used Second Hand Smoke Exposure: No Advance Directives Date on File: 02/06/21 service: No Current occupational status: retired Cognitive needs: Yes (walker/cane) Hearing needs: Yes (hearing aide) Vision needs: Yes (glasses) Meds Allergies Allergy/AdvReac Type Severity Reaction Status Date / Time meperidine [From Demerol] Allergy Severe Nausea and Verified 05/04/24 15:34 Vomiting amoxicillin [AMOXICILLIN] Allergy Intermediate Rash Verified 05/04/24 15:34 cephalexin Allergy Intermediate Itching Verified 05/04/24 15:34 erythromycin base Allergy Intermediate Itching Verified 05/04/24 15:34 meloxicam Allergy Intermediate Abdominal Verified 05/04/24 15:34 Pain nitrofurantoin Allergy Intermediate Rash Verified 05/04/24 15:34 [From Macrobid] Penicillins Allergy Intermediate Rash Verified 05/04/24 15:34 Sulfa (Sulfonamide Allergy Intermediate Rash Verified 05/04/24 15:34 Antibiotics) [SULFA(SULFONAMIDE ANTIBIOTICS)] tramadol Allergy Intermediate Nausea and Verified 05/04/24 15:34 Vomiting codeine [CODEINE] AdvReac Intermediate Nausea Verified 05/04/24 15:34 Home Medications ?Medication ?Instructions ?Recorded ?Confirmed ?Last Taken ?Type ferrous sulfate 325 mg (65 mg 325 mg PO DAILY 12/31/20 05/13/24 03/11/23 History iron) tablet fexofenadine 180 mg tablet 180 mg PO BEDTIME 12/31/20 05/13/24 Unknown History vitamin E succinate 268 mg (400 400 unit PO DAILY 12/31/20 05/13/24 09/09/23 History unit) tablet cyanocobalamin (vitamin B-12) 1,000 mcg PO DAILY 02/06/21 05/13/24 09/09/23 History 1,000 mcg tablet pyridoxine (vitamin B6) 100 mg 100 mg PO DAILY 02/06/21 05/13/24 09/09/23 History tablet cholecalciferol (vitamin D3) 25 25 mcg PO DAILY 11/05/21 05/13/24 03/11/23 History mcg (1,000 unit) capsule acetaminophen 500 mg tablet 1,000 mg PO TID Pain 05/18/23 05/13/24 09/09/23 History (Tylenol Extra Strength) albuterol sulfate 90 mcg/actuation 2 puff inhalation Q6H PRN 07/08/23 05/13/24 Unknown History aerosol inhaler (ProAir HFA) Bronchodilation ascorbic acid (vitamin C) 500 mg 500 mg PO DAILY 08/08/23 05/13/24 09/09/23 History tablet (Vitamin C) diphenhydramine HCl 25 mg capsule 25 mg PO DAILY PRN Itching 08/08/23 05/13/24 09/09/23 History (Benadryl) glucosam 750 mg-chondroi 100 1 tab PO BID 08/08/23 05/13/24 09/09/23 History mg-hyalur 1.65 mg-CF borate 108 mg tablet ([facility] [employer]) lidocaine 4 % topical patch 1 patch topical DAILY 08/08/23 05/13/24 09/09/23 History vit C 250 mg-vit E 90 mg-zinc 40 1 tab PO BID 08/08/23 05/13/24 09/09/23 History mg-copper 1 lq-nijque-vanymq capsule (PreserVision AREDS-2) calcium carbonate 600 mg-vitamin 1 tab PO BEDTIME 01/16/24 05/13/24 Unknown History D3 5 mcg (200 unit) tablet ceramides 1,3,6-II (CeraVe topical 1 appl topical 5XD PRN SEBORRHEIC 01/16/24 05/13/24 Unknown History cream) KERATOSES omeprazole 20 mg capsule,delayed 20 mg PO DAILY@0630 01/16/24 05/13/24 Unknown History release doxycycline hyclate 100 mg capsule 100 mg PO DAILY 05/04/24 05/04/24 Unknown History epoetin kamilah-epbx 40,000 unit/mL unit subcut ONCE PRN 05/04/24 05/13/24 Unknown History injection solution (Retacrit) ondansetron 4 mg disintegrating 4 mg PO Q8H PRN 05/04/24 05/13/24 Unknown History tablet Exam Height,Weight and Vital Signs: Height 5 ft 5 in Weight 73.992 kg Assessment and Plan Final Anesthetic Review Family History of Problems with Anesthesia: No History of Problems with Anesthesia: Yes (N/V with GA)
[2024-06-15 12:50] VITALS: BP 127/49; PULSE 56; RESP 12; TEMP 36.7; O2SAT 97; BMI 27.5
[2024-06-15 13:56] LABS: MRSA Nasal PCR NEGATIVE (Negative); SA Nasal PCR NEGATIVE (Negative)
--- NOTE | 2024-06-15 14:23 | MHC.SHP ---
Pre-Procedural Eval Section A - 24 Hr Update-Section A only Date of Service: 06/15/24 The patient is an INPATIENT: No Changes since office visit: Yes Patient answered all questions The patient has been examined within 24 hours of the surgical procedure. The History & Physical has been completed within 30 days and I have reviewed it.: No Section B - Complete if H&P > 30 days Chief Complaint: Pain in right shoulder,Other chronic pain Relevant Family History (Specify if Yes): No Relevant Social History: None Present Medications: see Short Stay Collaborative assessment Medical History: No relevant PMH History of Previous Operations: No relevant previous surgery Allergies: Allergies Allergy/AdvReac Type Severity Reaction Status Date / Time meperidine [From Demerol] Allergy Severe Nausea and Verified 06/15/24 12:43 Vomiting amoxicillin [AMOXICILLIN] Allergy Intermediate Rash Verified 06/15/24 12:43 cephalexin Allergy Intermediate Itching Verified 06/15/24 12:43 erythromycin base Allergy Intermediate Itching Verified 06/15/24 12:43 meloxicam Allergy Intermediate Abdominal Verified 06/15/24 12:43 Pain nitrofurantoin Allergy Intermediate Rash Verified 06/15/24 12:43 [From Macrobid] Penicillins Allergy Intermediate Rash Verified 06/15/24 12:43 Sulfa (Sulfonamide Allergy Intermediate Rash Verified 06/15/24 12:43 Antibiotics) [SULFA(SULFONAMIDE ANTIBIOTICS)] tramadol Allergy Intermediate Nausea and Verified 06/15/24 12:43 Vomiting codeine [CODEINE] AdvReac Intermediate Nausea Verified 06/15/24 12:43 Review of Systems Sugical H&P ROS: Negative: Constitution, Cardiovascular and Respiratory Exam Surgical H&P Exam: Normal: HEENT, Normal: Heart and Normal: Lungs Plan Diagnosis/Plan: Unchanged I have reviewed the history and physical and performed a pertinent physical examination on my patient. No changes have occurred unless specified. Time Spent With Patient Time: Total time managing care of this patient today ____ minutes.
--- NOTE | 2024-06-15 15:51 | P.BOP_ITS ---
Brief Operative Note Date of Service: 06/15/24 Pre-op diagnosis: Chronic right shoulder pain Post-op diagnosis: same Procedure: Suprascapular nerve stimulator trial Implants: [employer]onix PNS trial lead Surgeon: Sony Garcia MD Anesthesia: local Was an Inside Finisher used for this Procedure?: No Estimated blood loss (mL): 1 Pathology: none sent Condition: stable Disposition: PACU
--- NOTE | 2024-06-15 15:53 | P.OP_ITS ---
Operative Note Operative Note Date of Service: 06/15/24 Narrative: Preoperative diagnosis: Chronic right shoulder pain, suprascapular entrapment neuropathy Postoperative diagnosis: Same Procedure: Percutaneous trial of suprascapular nerve stimulation, RIGHT After obtaining written consent, pre-procedure blood pressure and heart rate were stable and recorded in the nursing record. Standard monitors were applied. A peripheral IV was started. Antibiotics, CLINDAMYCIN 600 MG, were given prior to the start of the procedure. The patient was positioned in sitting position. The right shoulder area was widely prepped with chloraprep and draped in sterile fashion. The skin at the insertion site was anesthetized with 0.5% lidocaine mixed with bupivacaine 0.25% with epinephrine. The introducer was advanced subcutaneously along the length of the scapular spine under ultrasound guidance and delivered in proximity to the suprascapular nerve. The electrode array was passed through the introducer at a shallow angle. Ultrasound was used to confirm appropriate lead position. Stimulation was performed and good coverage was obtained. The lead was secured using benzoin, steri-strips and tegaderms. The patient tolerated the procedure well. No complications were encountered. Following the procedure the patient's vital signs were stable. The patient was discharged home in good condition with post- procedural instructions. Time Out: Immediately prior to the procedure, the following was verbally confirmed that there is a signed consent form and that the correct patient, planned procedure, site and side are consistent with documentation and that necessary equipment and/or blood products are available prior to the start of the case. Complications: none EBL: <5 cc
[2024-06-15 16:00] VITALS: BP 123/56; PULSE 55; RESP 16; TEMP 37
== END 2024-06-15 16:45 | disposition home or self-care (01) ==
PROVIDERS: Registered Nurse Emergency; PCP Internal Medicine; Visit Provider Internal Medicine
PROC: (CPT 64555; principal; 2024-06-15 14:10)
DX: M25.511 Pain in right shoulder (principal); G89.29 Other chronic pain; G56.81 Other specified mononeuropathies of right upper limb
CPT/HCPCS: 64555; 87640; 87641; C1897; J0736; J2003

== ENCOUNTER → 2024-06-15 11:58 | Outpatient (BNV) | payer BC, SELFPAY | PROVIDERS: PCP Internal Medicine; Visit Provider Internal Medicine | DX: M25.511 Pain in right shoulder (principal) | CPT/HCPCS: 64555 ==

== ENCOUNTER 2024-06-24 10:45 | Outpatient (AMB) | payer BC, SELFPAY ==
--- NOTE | 2024-06-24 10:50 | MHC.OFFVIS ---
Vital Signs 06/24/24 10:52 Height 5 ft 5 in Weight 161 lb BMI 26.8 BP 174/74 H Blood Pressure Location Lt brachial Position Sitting Respiration 16 Pulse 62 Pulse Source Pulse Oximeter Pulse Oximetry (%) 96 Oxygen Delivery Method Room Air Intake Visit Reasons: S/p (R) Suprascapular Nerve PNS TRIAL 06/15/24 Allergies meperidine [From Demerol] Allergy (Severe, Verified 07/05/24 14:24) Nausea and Vomiting amoxicillin [AMOXICILLIN] Allergy (Intermediate, Verified 07/05/24 14:24) Rash cephalexin Allergy (Intermediate, Verified 07/05/24 14:24) Itching erythromycin base Allergy (Intermediate, Verified 07/05/24 14:24) Itching meloxicam Allergy (Intermediate, Verified 07/05/24 14:24) Abdominal Pain nitrofurantoin [From Macrobid] Allergy (Intermediate, Verified 07/05/24 14:24) Rash Penicillins Allergy (Intermediate, Verified 07/05/24 14:24) Rash Sulfa (Sulfonamide Antibiotics) [SULFA(SULFONAMIDE ANTIBIOTICS)] Allergy (Intermediate, Verified 07/05/24 14:24) Rash tramadol Allergy (Intermediate, Verified 07/05/24 14:24) Nausea and Vomiting codeine [CODEINE] Adverse Reaction (Intermediate, Verified 07/05/24 14:24) Nausea Medication List - Last Reconciled 06/24/24 by Erin Bowie LPN acetaminophen (Tylenol Extra Strength) 1,000 mg PO TID albuterol sulfate 90 mcg/actuation (ProAir HFA) 2 puffs inhalation Q6H PRN alendronate 70 mg PO MO@0900 amitriptyline 10 mg PO BEDTIME ascorbic acid (vitamin C) (Vitamin C) 500 mg PO DAILY aspirin 81 mg PO DAILY atorvastatin 80 mg PO BEDTIME blood pressure monitor As directed calcium carbonate-vitamin D3 600 mg-5 mcg (200 unit) 1 tab PO BEDTIME ceramides 1,3,6-II (CeraVe topical cream) 1 appl topical 5XD PRN cholecalciferol (vitamin D3) 25 mcg PO DAILY cyanocobalamin (vitamin B-12) 1,000 mcg PO DAILY diphenhydramine HCl (Benadryl) 25 mg PO DAILY PRN doxycycline hyclate 100 mg PO DAILY epoetin kamilah-epbx (Retacrit) units subcut ONCE PRN ferrous sulfate 325 mg PO DAILY fexofenadine 180 mg PO BEDTIME fluticasone propionate 220 mcg/actuation 2 puffs inhalation BID 30 days ntcmtquw-iwlsb-vvnwm-CF borate 750 mg-100 mg- 1.65 mg-108 mg ([facility] [employer]) 1 tab PO BID lidocaine 4% 1 patch topical DAILY metoprolol tartrate 25 mg PO BID omeprazole 20 mg PO DAILY@0630 ondansetron 4 mg PO Q8H PRN pyridoxine (vitamin B6) 100 mg PO DAILY vit C,I-Si-rksvz-lutein-zeaxan 250-90-40-1 mg (PreserVision AREDS-2) 1 tab PO BID vitamin E succinate 400 units PO DAILY HPI HPI S/p (R) Suprascapular Nerve PNS TRIAL 06/15/24: Details: 88-year-old female who presents today to the office for status post right suprascapular nerve peripheral nerve stimulator trial. The patient reports 50% relief following the procedure. She has intermittent pain at the site. She has some soreness around the insertion site. She?will?think?about?proceeding?with?the?implant. Past procedures: 06/15/24: Percutaneous trial of suprascapular nerve stimulation, RIGHT: 50% relief. 07/15/23: Articular branches of the axillary, suprascapular and lateral pectoral nerve cooled RFL, Right - fluoroscopic guided: % relief. 05/27/23: Lumbar Medial Branch Block, Left L3, L4 medial branches and L5 Dorsal Ramus (2 levels, 3 nerves): 50% relief for 1 day 03/11/23: Peripheral Nerve Stimulation Temporary Lead Placement, Ultrasound-Guided, Suprascapular Nerve, Right: % relief. 02/04/23: Bilateral Diagnostic L3-L4-DR L5 MBB-100% for 28 hours 02/04/23: Therapeutic left GTB steroid injection-ongoing 80% pain relief 01/14/23: Diagnostic right suprascapular nerve block- 80% relief.? [facility] Medical History PONV (postoperative nausea and vomiting) COPD (chronic obstructive pulmonary disease) CHF (congestive heart failure) Macular degeneration Dementia HTN (hypertension) Breast cancer Atherosclerotic cardiovascular disease Coronary artery disease Anemia Aortic stenosis, severe Primary osteoarthritis involving multiple joints Osteoporosis Benign essential HTN Asthma Allergic rhinitis Surgical History History of acute cholecystitis S/P TAVR (transcatheter aortic valve replacement) S/P cardiac catheterization History of hand surgery History of heart artery stent History of laminectomy History of kyphoplasty History of cataract surgery History of D&C Family History Father Hypertension Mother Thyroid cancer Sister Breast cancer Social History Household Members: None Household Members Other:: assisted living [facility] Housing: Assisted Living Facility Housing Other:: [facility] Are you a primary careers adviser to a significant other at home: No Do you presently have visiting nurse or other home services: No Alcohol intake: never Patient Tobacco Use Status: Former Tobacco user Tobacco use type: Cigarette Years Smoked: 5 e-Cigarette/Vaping Use: Never Used Second Hand Smoke Exposure: No Advance Directives Date on File: 02/06/21 service: No Current occupational status: retired Cognitive needs: Yes (walker/cane) Hearing needs: Yes (hearing aide) Vision needs: Yes (glasses) Review of Systems Const All systems reviewed & are unremarkable except as noted in HPI and below Physical Exam Vital Signs: Last Vital Signs Pulse 62 06/24/24 10:52 Resp 16 06/24/24 10:52 BP 174/74 H 06/24/24 10:52 Pulse Ox 96 06/24/24 10:52 Oxygen Delivery Method Room Air 06/24/24 10:52 BMI result Body Mass Index 26.8 General: Appears afebrile. Alert and oriented. Mood and affect appropriate. Follows and participates in conversation appropriately. Respiratory effort is unlabored. Able to transition from sit to stand unassisted. Ambulates with bilaterally normal heel strike and toe off. Results Reviewed Results Reviewed: No imaging is available for review. Assessment & Plan Assessment & Plan (1) Chronic right shoulder pain: Code(s): M25.511 - Pain in right shoulder; G89.29 - Other chronic pain Category: Medical Plan She?will?think?about?proceeding?with?the?implant and let us know when she wants the implant. A referral was provided to neurology was provided to the patient today for further evaluation and treatment of dementia and mood disturbance. Scribed for Dr. Garcia by Michael Estrada, medical record technician, on 06/24/2024. I, Dr. Garcia, have personally reviewed and agree with the information entered by the scribe. Orders: Referrals Neurology Referral F03.90 - Unspecified dementia, unspecified severity, without behavioral disturbance, psychotic disturbance, mood disturbance, and anxiety Coding Level of Care Code Est Pt Level 3 (98340) Diagnoses Chronic right shoulder pain M25.511; G89.29
[2024-06-24 10:52] VITALS: BP 174/74; PULSE 62; RESP 16; O2SAT 96; BMI 26.8
== END 2024-06-24 11:22 | disposition home or self-care (01) ==
LOC: HO.PMC 10:46
PROVIDERS: PCP Internal Medicine; Visit Provider Internal Medicine
DX: M25.511 Pain in right shoulder (principal); G89.29 Other chronic pain
CPT/HCPCS: 99024

== ENCOUNTER → 2024-06-24 10:45 | Outpatient (BNVA) | payer BC, SELFPAY | PROVIDERS: PCP Internal Medicine; Visit Provider Internal Medicine | DX: F03.90 Unspecified dementia, unspecified severity, without behavioral disturbance, psychotic disturbance, mood disturbance, and anxiety (principal) ==

== ENCOUNTER 2024-07-05 14:03 | Outpatient (AMB) | payer BC, SELFPAY ==
--- NOTE | 2024-07-05 14:23 | MHC.PC.OV ---
Vital Signs 07/05/24 14:24 Height 5 ft 5 in Weight 164 lb 8 oz BMI 27.4 BP 140/64 H Blood Pressure Location Lt brachial Position Sitting Pulse 75 Pulse Source Pulse Oximeter Pulse Oximetry (%) 99 Oxygen Delivery Method Room Air Intake Visit Reasons: 3 month f/u Intake Note: Patient is here to follow up on CHF, CAD, LDDD. Supervisor Laboratory Required: No Court Bailiff Or Sheriff: Present Accompanied by: Daughter Allergies meperidine [From Demerol] Allergy (Severe, Verified 07/05/24 14:24) Nausea and Vomiting amoxicillin [AMOXICILLIN] Allergy (Intermediate, Verified 07/05/24 14:24) Rash cephalexin Allergy (Intermediate, Verified 07/05/24 14:24) Itching erythromycin base Allergy (Intermediate, Verified 07/05/24 14:24) Itching meloxicam Allergy (Intermediate, Verified 07/05/24 14:24) Abdominal Pain nitrofurantoin [From Macrobid] Allergy (Intermediate, Verified 07/05/24 14:24) Rash Penicillins Allergy (Intermediate, Verified 07/05/24 14:24) Rash Sulfa (Sulfonamide Antibiotics) [SULFA(SULFONAMIDE ANTIBIOTICS)] Allergy (Intermediate, Verified 07/05/24 14:24) Rash tramadol Allergy (Intermediate, Verified 07/05/24 14:24) Nausea and Vomiting codeine [CODEINE] Adverse Reaction (Intermediate, Verified 07/05/24 14:24) Nausea Tobacco use date assessed: 07/05/24 Fall risk assessment: No Falls in past year Last assessed Fall Risk: 07/05/24 Dental Screening Dental Screen Date: 10/01/23 HPI 3 month f/u HPI Details 88-year-old female presenting with her daughter at bedside for re-evaluation for chronic anemia and her chronic Right shoulder pain. Patient is currently residing at [facility] in [place] in the assisted living unit. They are assisting her with bathing and patient tries to dress herself as much as she can. She is suffering from chronic right shoulder pain currently utilizing Tylenol, NSAIDs and Lidoderm patches. She had a trial of a stimulator which had good effect therefore pain management plans to place a permanent stimulator to right shoulder called Radha on July 13. Daughter reports patient had outpatient labs and UA at [facility] on Thursday and Thursday. Ordered by painter railroad car. Patient and daughter at bedside unsure of results although will receive at next appointment. Patient continues to be followed by [facility] [employer] [facility] receiving Procit injections. Patient reports she recently had her flu vaccine at [facility]. Patient is walking with a wheeled walker. Patient is taking all her medications as prescribed and is assisted with her medications at [facility]. Daughter at bedside reports patient has appetite has decreased although she is still eating sandwiches. Patient is not incontinence of urine or bowels. Patient has appointment with neurologist 08/12/2024. Patient and daughter deny any other symptoms complaints or concerns at this time. [facility] Medical History PONV (postoperative nausea and vomiting) COPD (chronic obstructive pulmonary disease) CHF (congestive heart failure) Macular degeneration Dementia HTN (hypertension) Breast cancer Atherosclerotic cardiovascular disease Coronary artery disease Anemia Aortic stenosis, severe Primary osteoarthritis involving multiple joints Osteoporosis Benign essential HTN Asthma Allergic rhinitis Surgical History History of acute cholecystitis S/P TAVR (transcatheter aortic valve replacement) S/P cardiac catheterization History of hand surgery History of heart artery stent History of laminectomy History of kyphoplasty History of cataract surgery History of D&C Family History Father Hypertension Mother Thyroid cancer Sister Breast cancer Social History Household Members: None Household Members Other:: assisted living [facility] Housing: Assisted Living Facility Housing Other:: [facility] Are you a primary home health care physician to a significant other at home: No Do you presently have visiting nurse or other home services: No Alcohol intake: never Patient Tobacco Use Status: Former Tobacco user Tobacco use type: Cigarette Years Smoked: 5 e-Cigarette/Vaping Use: Never Used Second Hand Smoke Exposure: No Advance Directives Date on File: 02/06/21 service: No Current occupational status: retired Cognitive needs: Yes (walker/cane) Hearing needs: Yes (hearing aide) Vision needs: Yes (glasses) Questionnaire Thrive Questionnaire Date Thrive assessed: 01/27/24 AUDIT C Alcohol Use Questionnaire (AUDIT-C) 2. How many drinks containing alcohol do you have on a typical day when you are drinking?: 1 or 2 3. How often do you have six or more drinks on one occasion?: Never Total Score: 0 BRUNO-7 AMB Questionnaire BRUNO-7 Date BRUNO - 7 assessed: 10/01/23 Source: Developed by Drs. Hossein Elizalde, Olinda Clark, Zak Lechuga and colleagues, with an educational yemi from [employer]. Review of Systems Const All systems reviewed & are unremarkable except as noted in HPI and below Physical exam (Primary Care) Vital Signs: Last Vital Signs Pulse 75 07/05/24 14:24 BP 140/64 H 07/05/24 14:24 Pulse Ox 99 07/05/24 14:24 Oxygen Delivery Method Room Air 07/05/24 14:24 Appearance: Alert. Pleasantly confused. No acute distress. ? Head: Normal external exam. Normocephalic. Atraumatic. Eyes: EOMI. Conjunctiva and sclera normal. Eyelids normal. ? ENT: Moist mucous membranes. ? Normal Voice. Neck: Normal inspection. Neck supple. FROM. No adenopathy. Thyroid Normal. No meningeal signs. No neck mass noted. CVS: Normal heart rate and rhythm. Heart sound normal. No murmurs noted. Pulses normal throughout. Respiratory: No respiratory distress. Painless inspiration. Breath sounds normal. No wheezes/rales/rhonchi noted. Chest nontender. Abdomen: Soft and nontender. No distention noted. Back: ?No CVA tenderness.? Full range of motion noted. Skin: Skin warm and dry.? Normal skin color.? Normal skin turgor. No rashes noted. Extremities: No lower extremity edema. No calf tenderness noted. Patient noted to have tenderness to right shoulder with limited range of motion. Lidocaine patch is in place. No rashes, joint swelling or signs of infection noted. Otherwise all other extremities exhibit normal range of motion nontender.? Neuro: Pleasantly confused.? Normal affect. No motor deficit.? No sensory deficit.? Reflexes normal. BMI result Body Mass Index 27.4 Tobacco/Smoking Status: Tobacco use Status Tobacco use date assessed 07/05/24 07/05/24 14:38 Patient Tobacco Use Status Former Tobacco user 07/05/24 14:38 Tobacco use type Cigarette 07/05/24 14:38 e-Cigarette/Vaping Use Never Used 07/05/24 14:38 Thrive Assessment: Date of Thrive Assessment Date Thrive assessed 01/27/24 07/05/24 14:38 Coding Level of Care Code Est Pt Level 4 (66521) Complex EM visit Add On G2211 Diagnoses Acute on chronic anemia D64.9 Dementia F03.90 Primary osteoarthritis, right shoulder M19.011 Assessment & Plan Assessment & Plan (1) Acute on chronic anemia: Code(s): D64.9 - Anemia, unspecified Category: Medical Plan: Patient to continue Procit injections with nephrology as scheduled. (2) Dementia: Code(s): F03.90 - Unspecified dementia, unspecified severity, without behavioral disturbance, psychotic disturbance, mood disturbance, and anxiety Category: Medical Plan: Patient has referral for neurologist and an appointment 08/12/2024. Daughter at bedside will make sure patient makes it to this appointment. (3) Primary osteoarthritis, right shoulder: Code(s): M19.011 - Primary osteoarthritis, right shoulder Category: Medical Plan: Patient has an appointment on July 13 with pain management for implantation of permanent stimulator Curonix to right shoulder.
[2024-07-05 14:24] VITALS: BP 140/64; PULSE 75; O2SAT 99; BMI 27.4
== END 2024-07-05 15:09 | disposition home or self-care (01) ==
PROVIDERS: PCP Internal Medicine; Visit Provider Internal Medicine
DX: D64.9 Anemia, unspecified (principal); F03.90 Unspecified dementia, unspecified severity, without behavioral disturbance, psychotic disturbance, mood disturbance, and anxiety; M19.011 Primary osteoarthritis, right shoulder

== ENCOUNTER 2024-07-13 10:10 | Day surgery (SDC) | payer BC, SELFPAY ==
[2024-07-13] MEDS: Clindamycin Phosphate/D5W 900 MG/50 ML PIGGYBACK 50 MG IV (11:05)
[2024-07-13 11:13] VITALS: BP 134/52; PULSE 56; RESP 18; TEMP 36.3; O2SAT 98; BMI 27.3
[2024-07-13 11:58] LABS: MRSA Nasal PCR NEGATIVE (Negative); SA Nasal PCR NEGATIVE (Negative)
--- NOTE | 2024-07-13 12:26 | MHC.SHP ---
Pre-Procedural Eval Section A - 24 Hr Update-Section A only Date of Service: 07/13/24 The patient is an INPATIENT: No Changes since office visit: Yes Patient answered all questions The patient has been examined within 24 hours of the surgical procedure. The History & Physical has been completed within 30 days and I have reviewed it.: No Section B - Complete if H&P > 30 days Chief Complaint: Pain in right shoulder,Other chronic pain Relevant Family History (Specify if Yes): No Relevant Social History: None Present Medications: see Short Stay Collaborative assessment Medical History: No relevant PMH History of Previous Operations: No relevant previous surgery Allergies: Allergies Allergy/AdvReac Type Severity Reaction Status Date / Time meperidine [From Demerol] Allergy Severe Nausea and Verified 07/05/24 14:24 Vomiting amoxicillin [AMOXICILLIN] Allergy Intermediate Rash Verified 07/05/24 14:24 cephalexin Allergy Intermediate Itching Verified 07/05/24 14:24 erythromycin base Allergy Intermediate Itching Verified 07/05/24 14:24 meloxicam Allergy Intermediate Abdominal Verified 07/05/24 14:24 Pain nitrofurantoin Allergy Intermediate Rash Verified 07/05/24 14:24 [From Macrobid] Penicillins Allergy Intermediate Rash Verified 07/05/24 14:24 Sulfa (Sulfonamide Allergy Intermediate Rash Verified 07/05/24 14:24 Antibiotics) [SULFA(SULFONAMIDE ANTIBIOTICS)] tramadol Allergy Intermediate Nausea and Verified 07/05/24 14:24 Vomiting codeine [CODEINE] AdvReac Intermediate Nausea Verified 07/05/24 14:24 Review of Systems Sugical H&P ROS: Negative: Constitution, Cardiovascular and Respiratory Exam Surgical H&P Exam: Normal: HEENT, Normal: Heart and Normal: Lungs Plan Diagnosis/Plan: Unchanged I have reviewed the history and physical and performed a pertinent physical examination on my patient. No changes have occurred unless specified. Time Spent With Patient Time: Total time managing care of this patient today ____ minutes.
[2024-07-13 14:30] VITALS: BP 143/57; PULSE 61; RESP 20; TEMP 36.6; O2SAT 98
--- NOTE | 2024-07-13 15:24 | PM.OP ---
Brief Operative Note Date of Service: 07/13/24 Pre-op diagnosis: Chronic right shoulder pain Post-op diagnosis: same Procedure: Right suprascapular nerve stimulator implant Implants: Curonix penis system Surgeon: Sony Garcia MD Anesthesia: local Was an [place] used for this Procedure?: No Estimated blood loss (mL): 10 Pathology: none sent Condition: stable Disposition: PACU
--- NOTE | 2024-07-13 15:25 | W.PM.OPN ---
Operative Note Operative Note Date of Service: 07/13/24
== END 2024-07-13 15:29 | disposition home or self-care (01) ==
PROVIDERS: Registered Nurse Emergency; PCP Internal Medicine; Visit Provider Internal Medicine
PROC: (CPT 64555; principal; 2024-07-13 12:10)
DX: M25.511 Pain in right shoulder (principal); G89.29 Other chronic pain; M15.9 Polyosteoarthritis, unspecified; M81.0 Age-related osteoporosis without current pathological fracture; J44.9 Chronic obstructive pulmonary disease, unspecified; I11.0 Hypertensive heart disease with heart failure; I50.9 Heart failure, unspecified; F03.90 Unspecified dementia, unspecified severity, without behavioral disturbance, psychotic disturbance, mood disturbance, and anxiety; D64.9 Anemia, unspecified; I25.10 Atherosclerotic heart disease of native coronary artery without angina pectoris; Z95.5 Presence of coronary angioplasty implant and graft; Z87.891 Personal history of nicotine dependence
CPT/HCPCS: 64555; 87640; 87641; C1816; J0736; J2003; J2795; J3370

== ENCOUNTER → 2024-07-13 10:10 | Outpatient (BNV) | payer BC, SELFPAY | PROVIDERS: PCP Internal Medicine; Visit Provider Internal Medicine | DX: M25.511 Pain in right shoulder (principal) | CPT/HCPCS: 64555 ==

== ENCOUNTER 2024-07-18 10:37 | Outpatient (AMB) | payer BC, SELFPAY ==
--- NOTE | 2024-07-18 10:40 | MHC.OFFVIS ---
Vital Signs 07/18/24 10:43 Height 5 ft 5 in Weight 163 lb BMI 27.1 BP 193/77 H Blood Pressure Location Lt brachial Position Sitting Respiration 6 L Pulse 62 Pulse Source Pulse Oximeter Pulse Oximetry (%) 97 Oxygen Delivery Method Room Air Intake Visit Reasons: S/p Local OR (R) Suprascap PNS Implant 07/13/24 Allergies meperidine [From Demerol] Allergy (Severe, Verified 07/18/24 10:46) Nausea and Vomiting amoxicillin [AMOXICILLIN] Allergy (Intermediate, Verified 07/18/24 10:46) Rash cephalexin Allergy (Intermediate, Verified 07/18/24 10:46) Itching erythromycin base Allergy (Intermediate, Verified 07/18/24 10:46) Itching meloxicam Allergy (Intermediate, Verified 07/18/24 10:46) Abdominal Pain nitrofurantoin [From Macrobid] Allergy (Intermediate, Verified 07/18/24 10:46) Rash Penicillins Allergy (Intermediate, Verified 07/18/24 10:46) Rash Sulfa (Sulfonamide Antibiotics) [SULFA(SULFONAMIDE ANTIBIOTICS)] Allergy (Intermediate, Verified 07/18/24 10:46) Rash tramadol Allergy (Intermediate, Verified 07/18/24 10:46) Nausea and Vomiting codeine [CODEINE] Adverse Reaction (Intermediate, Verified 07/18/24 10:46) Nausea Medication List - Last Reconciled 07/18/24 by Erin Bowie LPN acetaminophen (Tylenol Extra Strength) 1,000 mg PO TID albuterol sulfate 90 mcg/actuation (ProAir HFA) 2 puffs inhalation Q6H PRN alendronate 70 mg PO MO@0900 amitriptyline 10 mg PO BEDTIME ascorbic acid (vitamin C) (Vitamin C) 500 mg PO DAILY aspirin 81 mg PO DAILY atorvastatin 80 mg PO BEDTIME blood pressure monitor As directed calcium carbonate-vitamin D3 600 mg-5 mcg (200 unit) 1 tab PO BEDTIME ceramides 1,3,6-II (CeraVe topical cream) 1 appl topical 5XD PRN cholecalciferol (vitamin D3) 25 mcg PO DAILY cyanocobalamin (vitamin B-12) 1,000 mcg PO DAILY diphenhydramine HCl (Benadryl) 25 mg PO DAILY PRN doxycycline hyclate 100 mg PO DAILY epoetin kamilah-epbx (Retacrit) units subcut ONCE PRN ferrous sulfate 325 mg PO DAILY fexofenadine 180 mg PO BEDTIME fluticasone propionate 220 mcg/actuation 2 puffs inhalation BID 30 days kgwetvkw-gkjvo-vwmjf-CF borate 750 mg-100 mg- 1.65 mg-108 mg ([facility] Brain in Hand) 1 tab PO BID lidocaine 4% 1 patch topical DAILY metoprolol tartrate 25 mg PO BID omeprazole 20 mg PO DAILY@0630 ondansetron 4 mg PO Q8H PRN pyridoxine (vitamin B6) 100 mg PO DAILY vit C,W-Fn-wuwij-lutein-zeaxan 250-90-40-1 mg (PreserVision AREDS-2) 1 tab PO BID vitamin E succinate 400 units PO DAILY HPI HPI S/p Local OR (R) Suprascap PNS Implant 07/13/24: Details: 88-year-old female who presents today to the office for a status post suprascapular peripheral nerve stimulator. The patient reports more than 80 % relief following the procedure, especially when the device is on. She has been taking oral medications. She has been using the device 10-12 hours a day. She has good relief when she is not doing any activities. She has been changing dressings at home. Past procedures: 07/13/24: Right suprascapular nerve stimulator implant: >80% relief. 06/15/24: Percutaneous trial of suprascapular nerve stimulation, RIGHT: 50% relief. 07/15/23: Articular branches of the axillary, suprascapular and lateral pectoral nerve cooled RFL, Right - aborted 03/11/23: Peripheral Nerve Stimulation Temporary Lead Placement, Ultrasound-Guided, Suprascapular Nerve, Right: % relief. 02/04/23: Bilateral Diagnostic L3-L4-DR L5 MBB-100% for 28 hours 02/04/23: Therapeutic left GTB steroid injection-ongoing 80% pain relief 01/14/23: Diagnostic right suprascapular nerve block- 80% relief.? [facility] Medical History PONV (postoperative nausea and vomiting) COPD (chronic obstructive pulmonary disease) CHF (congestive heart failure) Macular degeneration Dementia HTN (hypertension) Breast cancer Atherosclerotic cardiovascular disease Coronary artery disease Anemia Aortic stenosis, severe Primary osteoarthritis involving multiple joints Osteoporosis Benign essential HTN Asthma Allergic rhinitis Surgical History History of acute cholecystitis S/P TAVR (transcatheter aortic valve replacement) S/P cardiac catheterization History of hand surgery History of heart artery stent History of laminectomy History of kyphoplasty History of cataract surgery History of D&C Family History Father Hypertension Mother Thyroid cancer Sister Breast cancer Social History Household Members: None Household Members Other:: assisted living [facility] Housing: Assisted Living Facility Housing Other:: [facility] Are you a primary manager career to a significant other at home: No Do you presently have visiting nurse or other home services: No Alcohol intake: never Patient Tobacco Use Status: Former Tobacco user Tobacco use type: Cigarette Years Smoked: 5 e-Cigarette/Vaping Use: Never Used Second Hand Smoke Exposure: No Advance Directives Date on File: 02/06/21 service: No Current occupational status: retired Cognitive needs: Yes (walker/cane) Hearing needs: Yes (hearing aide) Vision needs: Yes (glasses) Review of Systems Const All systems reviewed & are unremarkable except as noted in HPI and below Physical Exam Vital Signs: Last Vital Signs Pulse 62 07/18/24 10:43 Resp 6 L 07/18/24 10:43 BP 193/77 H 07/18/24 10:43 Pulse Ox 97 07/18/24 10:43 Oxygen Delivery Method Room Air 07/18/24 10:43 BMI result Body Mass Index 27.1 General: Appears afebrile. Alert and oriented. Mood and affect appropriate. Follows and participates in conversation appropriately. Respiratory effort is unlabored. Able to transition from sit to stand unassisted. Ambulates with bilaterally normal heel strike and toe off. Wounds were dry and intact. Results Reviewed Results Reviewed: No imaging is available for review. Assessment & Plan Assessment & Plan (1) Chronic right shoulder pain: Code(s): M25.511 - Pain in right shoulder; G89.29 - Other chronic pain Category: Medical Plan Excellent initial response to therapy. Wounds are dry and intact. They were redressed in the office today. Discussed plan for device operations to suit the patient's needs. She will follow up next week for a final wound check.? Scribed for Dr. Garcia by Michael Estrada, biomedical equipment specialist, on 07/18/2024. I, Dr. Garcia, have personally reviewed and agree with the information entered by the scribe. Coding Level of Care Code Est Pt Level 3 (09973) Diagnoses Chronic right shoulder pain M25.511; G89.29
[2024-07-18 10:43] VITALS: BP 193/77; PULSE 62; RESP 6; O2SAT 97; BMI 27.1
== END 2024-07-18 11:22 | disposition home or self-care (01) ==
PROVIDERS: PCP Internal Medicine; Visit Provider Internal Medicine
DX: M25.511 Pain in right shoulder (principal); G89.29 Other chronic pain
CPT/HCPCS: 99213

== ENCOUNTER → 2024-07-18 10:37 | Outpatient (BNVA) | payer BC, SELFPAY | PROVIDERS: PCP Internal Medicine; Visit Provider Internal Medicine ==

== ENCOUNTER → 2024-07-27 13:02 | Outpatient (BNVA) | payer BC, SELFPAY | PROVIDERS: PCP Internal Medicine; Visit Provider Internal Medicine ==

== ENCOUNTER 2024-08-08 16:18 | Outpatient (REF) | payer BC, SELFPAY ==
[2024-08-08 17:45] LABS: Vitamin B12 > 2000 pg/mL (200-900)
== END 2024-08-08 16:19 | disposition home or self-care (01) ==
LOC: HO.LAB 16:18
PROVIDERS: PCP Internal Medicine; Visit Provider Psychiatry & Neurology Neurology
DX: G30.9 Alzheimer's disease, unspecified (principal)
CPT/HCPCS: 36415; 82607

== ENCOUNTER 2024-09-16 15:12 | Emergency (ER) | payer BC, SELFPAY ==
--- NOTE | ~2024-09-16 | XR_ITS ---
EXAMINATION: XR CHEST CLINICAL INFORMATION: excessive fatigue, recent Covid COMPARISON: 01/26/2024, 09/07/2020. TECHNIQUE: AP and lateral views of the chest were obtained. FINDINGS: Elevated right hemidiaphragm, unchanged. Mild cardiac enlargement with TAVR in place, stable. Low lung volumes with mild bronchovascular crowding. Trace linear atelectasis right base. Lungs otherwise clear. No pleural effusion or pneumothorax. Soft tissues demonstrate a stimulator lead overlying the right posterior shoulder. There are vascular calcifications. Degenerative kyphoscoliosis and osteopenia of the spine. L1 kyphoplasty cement noted. Several mild wedge compression deformities of the midthoracic spine are unchanged. Degenerative changes in both shoulder joints. XR/XR chest 2V IMPRESSION: 1. Low lung volume with elevated right hemidiaphragm, mild bronchovascular crowding in the lung bases. No definite active pulmonary disease. 2. Cardiac enlargement with TAVR. 3. Stable ancillary findings as discussed. Electronically signed by: Dario Sheldon MD 09/16/2024 04:34 PM JAC
[2024-09-16 15:35] VITALS: BP 154/78; PULSE 72; RESP 16; TEMP 36.3; O2SAT 99; BMI 27.5
--- NOTE | 2024-09-16 15:35 | ED.GENADULT ---
HPI - General Adult General Chief complaint: General Medical Stated complaint: weakness Time Seen by Provider: 09/16/24 21:18 Source: patient Mode of arrival: ambulatory History of Present Illness ED Provider: Dr. Alberto Alvarez HPI narrative: 89-year-old female with a history of hypertension, coronary disease, NSTEMI, asthma, congestive heart failure, dementia, TAVR who presents emergency department for evaluation of increased fatigue, increased sleeping, lower abdominal pain left-sided headache. Patient states that she had COVID proximally 7 days prior. She states that she still has a cough. She states that today she developed abdominal pain and points to her lower abdomen. She states the pain was nonstop and felt like a gas pain but he was now resolved and she was no pain at the time my evaluation. She states that the left-sided headache was a throbbing pain and located behind her eye but this has also resolved. She states she had a cough with the COVID and now the cough is only occasional. She denied fever, chills, rhinorrhea, sore throat, nausea, vomiting, diarrhea, frequency, urgency or dysuria. Patient states she lives at home but her daughter lives in [place]. Related Data Home Medications ?Medication ?Instructions ?Recorded ?Confirmed ferrous sulfate 325 mg (65 mg 325 mg PO DAILY 12/31/20 07/18/24 iron) tablet fexofenadine 180 mg tablet 180 mg PO BEDTIME 12/31/20 07/18/24 vitamin E succinate 268 mg (400 400 unit PO DAILY 12/31/20 07/18/24 unit) tablet cyanocobalamin (vitamin B-12) 1,000 mcg PO DAILY 02/06/21 07/18/24 1,000 mcg tablet pyridoxine (vitamin B6) 100 mg 100 mg PO DAILY 02/06/21 07/18/24 tablet cholecalciferol (vitamin D3) 25 25 mcg PO DAILY 11/05/21 07/18/24 mcg (1,000 unit) capsule acetaminophen 500 mg tablet 1,000 mg PO TID Pain 05/18/23 07/18/24 (Tylenol Extra Strength) albuterol sulfate 90 mcg/actuation 2 puff inhalation Q6H PRN 07/08/23 07/18/24 aerosol inhaler (ProAir HFA) Bronchodilation ascorbic acid (vitamin C) 500 mg 500 mg PO DAILY 08/08/23 07/18/24 tablet (Vitamin C) diphenhydramine HCl 25 mg capsule 25 mg PO DAILY PRN Itching 08/08/23 07/18/24 (Benadryl) glucosam 750 mg-chondroi 100 1 tab PO BID 08/08/23 07/18/24 mg-hyalur 1.65 mg-CF borate 108 mg tablet ([facility]) lidocaine 4 % topical patch 1 patch topical DAILY 08/08/23 07/18/24 vit C 250 mg-vit E 90 mg-zinc 40 1 tab PO BID 08/08/23 07/18/24 mg-copper 1 [id number] capsule (PreserVision AREDS-2) calcium 600 mg (as 1 tab PO BEDTIME 01/16/24 07/18/24 carbonate)-vitamin D3 5 mcg (200 unit) tablet ceramides 1,3,6-II (CeraVe topical 1 appl topical 5XD PRN SEBORRHEIC 01/16/24 07/18/24 cream) KERATOSES omeprazole 20 mg capsule,delayed 20 mg PO DAILY@0630 01/16/24 07/18/24 release doxycycline hyclate 100 mg capsule 100 mg PO DAILY 05/04/24 07/18/24 epoetin kamilah-epbx 40,000 unit/mL unit subcut ONCE PRN 05/04/24 07/18/24 injection solution (Retacrit) ondansetron 4 mg disintegrating 4 mg PO Q8H PRN 05/04/24 07/18/24 tablet Previous Rx's ?Medication ?Instructions ?Recorded blood pressure monitor #1 ea 07/15/21 atorvastatin 80 mg tablet 80 mg PO BEDTIME #90 tabs 10/07/23 aspirin 81 mg tablet,delayed 81 mg PO DAILY #90 tabs 01/04/24 release amitriptyline 10 mg tablet 10 mg PO BEDTIME #90 tabs 01/26/24 fluticasone propionate 220 2 puff inhalation BID asthma 30 05/30/24 mcg/actuation HFA aerosol inhaler days #12 grams alendronate 70 mg tablet 70 mg PO MO@0900 #12 tabs 06/27/24 metoprolol tartrate 25 mg tablet 25 mg PO BID #180 tabs 07/07/24 nirmatrelvir 300 mg (150 mg See Rx Instructions PO .COMPLEX 09/06/24 x2)-ritonavir 100 mg tablet,dose COVID 5 days #30 ea pack (Paxlovid) Allergies Allergy/AdvReac Type Severity Reaction Status Date / Time meperidine [From Demerol] Allergy Severe Nausea and Verified 09/16/24 15:37 Vomiting amoxicillin [AMOXICILLIN] Allergy Intermediate Rash Verified 09/16/24 15:37 cephalexin Allergy Intermediate Itching Verified 09/16/24 15:37 erythromycin base Allergy Intermediate Itching Verified 09/16/24 15:37 meloxicam Allergy Intermediate Abdominal Verified 09/16/24 15:37 Pain nitrofurantoin Allergy Intermediate Rash Verified 09/16/24 15:37 [From Macrobid] Penicillins Allergy Intermediate Rash Verified 09/16/24 15:37 Sulfa (Sulfonamide Allergy Intermediate Rash Verified 09/16/24 15:37 Antibiotics) [SULFA(SULFONAMIDE ANTIBIOTICS)] tramadol Allergy Intermediate Nausea and Verified 09/16/24 15:37 Vomiting codeine [CODEINE] AdvReac Intermediate Nausea Verified 09/16/24 15:37 Review of Systems Review of Systems: Yes all other systems are reviewed and are negative [facility] Past Medical History Medical History PONV (postoperative nausea and vomiting) COPD (chronic obstructive pulmonary disease) CHF (congestive heart failure) Macular degeneration Dementia HTN (hypertension) Breast cancer Atherosclerotic cardiovascular disease Coronary artery disease Anemia Aortic stenosis, severe Primary osteoarthritis involving multiple joints Osteoporosis Benign essential HTN Asthma Allergic rhinitis Surgical History History of acute cholecystitis S/P TAVR (transcatheter aortic valve replacement) S/P cardiac catheterization History of hand surgery History of heart artery stent History of laminectomy History of kyphoplasty History of cataract surgery History of D&C Family History Family History Father Hypertension Mother Thyroid cancer Sister Breast cancer Social History Social History Household Members: None Household Members Other:: assisted living [facility] Housing: Assisted Living Facility Housing Other:: [facility] Are you a primary transitional care nurse to a significant other at home: No Do you presently have visiting nurse or other home services: No Alcohol intake: current Alcohol intake frequency: holidays/special occasions only Alcohol type: beer and wine Patient Tobacco Use Status: Former Tobacco user Tobacco use type: Cigarette Years Smoked: 5 Smoked in Last 30 Days: No e-Cigarette/Vaping Use: Never Used Second Hand Smoke Exposure: No Use of substances other than those prescribed or required for medical reasons: No Advance Directives: Yes Advance Directives on File: Yes Advance Directives Date on File: 02/06/21 Do you have a plan to hurt others: No Plan service: No Current occupational status: retired Cognitive needs: Yes (walker/cane) Hearing needs: Yes (hearing aide) Vision needs: Yes (glasses) Physical Exam ED Vital Signs: Vital Signs - 24 hr 09/16/24 15:35 09/16/24 20:19 Temperature 97.3 F 97.9 F Pulse Rate 72 63 Respiratory Rate 16 20 Blood Pressure 154/78 H 125/46 L Pulse Oximetry 99 98 Oxygen Delivery Method Room Air Room Air BMI result Body Mass Index 27.5 Vital signs revealed an elevated blood pressure of 154/78 Exam: General: Awake, alert in no distress Head: Normocephalic, atraumatic EENT: PERRL, Lids normal, sclera normal, conjunctiva normal, nose normal , ears normal, throat without erythema or exudates Neck: Supple, no adenopathy Lung: breath sounds symmetric, no wheezing, rales or rhonchi Chest: symmetric movement, nontender Heart: regular rate and rhythm, normal S1, S2 no murmurs or rubs Abdomen: soft, non-tender, nondistended, normal bowel sounds Back: no vertebral tenderness, no CVAT Extremities: no deformities, moves all extremities symmetrically Neuro: Awake, alert, oriented, normal speech, cranial nerves intact, moves all extremities symmetrically Psych: Pleasant, cooperative Course Course Course Narrative: This is a rapid medical exam performed by Chante Colón NP: Additional HPI, ROS, PE not included below will be deferred to primary provider. Patient is an 89-year-old female with history of CHF, anemia, dementia, CAD, pulmonary HTN, severe mitral regurg, NSTEMI, breast CA, CAD, s/p TAVR, HTN, asthma presenting with excessive tiredness, sleeping all the time, lower abdominal pain yesterday, recently had Covid, dx on 09/05. Plan: EKG, labs, UA, viral serology Medical Decision Making Medical Decision Making [facility] Narrative: 89-year-old female with a history of hypertension, coronary disease, NSTEMI, asthma, congestive heart failure, dementia, TAVR who presents emergency department for evaluation of increased fatigue, increased sleeping, lower abdominal pain left-sided headache. Patient had COVID a proximally 7 days prior and she continues to have an occasional cough. Patient's headache and abdominal pain resolved by the time I had seen her. Vital signs were unremarkable. Physical examination was unremarkable. Differential diagnosis: ?Includes but is not limited to COVID-19 infection, appendicitis, diverticulitis, pancreatitis, myocardial infarction, myocardial ischemia, urinary tract infection, anemia, electrolyte abnormalities Course: 21:48 My independent interpretation patient's laboratory evaluation is as follows: Normocytic anemia with an H&H of 10.4 and 31.0-this is chronic. Electrolytes were unremarkable. Glucose elevated 119. AST and ALT elevated 57 and 70. High sensitive troponin I was elevated 21.6-patient was had similar elevations in the past and at higher elevations when she had an NSTEMI in 2020. COVID-19, influenza RSV and rapid strep were negative. Patient's chest x-ray revealed no evidence of pneumonia. Twelve EKG was consistent with a left bundle-branch block. At this time, I suspect that the patient's fatigue and of excessive sleepiness is secondary to her COVID infection and she was not completely recovered from this yet. I did discuss this with the patient. At this time, I do not think that the patient needs any further imaging study since your abdominal pain is completely resolved. I did discuss this with the patient and the patient will be discharged to home. Admission/Observation Consideration of admission/observation: Escalation of care including admission/observation considered (Yes) Lab Data MDM Lab Attestation statement: I reviewed the patient's lab results. 09/16/24 16:36 09/16/24 16:36 Labs: Lab Results 09/16/24 09/16/24 Range/Units 16:36 20:47 WBC 7.9 (4.8-10.8) X10*3/uL RBC 3.16 L (4.20-5.50) X10*6/uL Hgb 10.4 L (12.0-16.0) g/dl Hct 31.0 L (37.0-47.0) % MCV 98.1 H (80.0-98.0) fL MCH 32.9 (27.0-33.0) pg MCHC 33.5 (31.0-35.0) g/dl RDW 14.3 (11.0-16.0) % Plt Count 192 (160-400) X10*3/uL MPV 10.4 (9.4-12.3) fL Immature Gran % (Auto) 0.3 (0.0-0.4) % Neut % (Auto) 57.2 (45-73) % Lymph % (Auto) 32.6 (20-40) % Turner % (Auto) 7.0 (2-11) % Eos % (Auto) 2.4 (0-4) % Baso % (Auto) 0.5 (0-2) % Lymph # (Auto) 2.6 (1.2-4.9) X10*3/uL Turner # (Auto) 0.6 (0.1-1.2) X10*3/uL Eos # (Auto) 0.2 (0.0-0.4) X10*3/uL Baso # (Auto) 0.0 (0.0-0.2) X10*3/uL Abs Immat Gran (auto) 0.02 (0.00-0.03) X10*3/uL Absolute Neuts (auto) 4.5 (2.0-8.3) x10*3/uL Absolute Nucleated RBC 0.000 (0.0-0.012) X10*3/uL Nucleated RBC % (auto) 0.0 (0.0-0.2) /100WBC PT 11.9 (10.9-12.4) SEC INR 1.0 (0.9-1.1) Sodium 139 (135-145) mmol/L Potassium 4.2 (3.3-5.1) mmol/L Chloride 110 H (96-108) mmol/L Carbon Dioxide 21 L (22-29) mmol/L Anion Gap 12 (12-20) BUN 17 H (9-16) mg/dL Creatinine 0.91 (0.5-1.4) mg/dL Estim Creat Clear Calc 43.3 Estimated GFR 58 Random Glucose 119 H (60-115) mg/dL Calcium 8.8 D (8.4-10.2) mg/dL Magnesium 1.8 (1.6-2.6) mg/dL Total Bilirubin 0.4 (0.0-1.0) mg/dL AST 51 H (5-31) U/L ALT 70 H (0-31) U/L Alkaline Phosphatase 65 (39-117) U/L Troponin I High Sens 21.6 H D (<3.5-17.0) ng/L Total Protein 6.7 (6.5-8.0) g/dL Albumin 3.6 (3.5-5.0) g/dL Influenza Type A (PCR) NEGATIVE (Negative) Influenza Type B (PCR) NEGATIVE (Negative) RSV RNA Qual (PCR) NEGATIVE (Negative) SARS-CoV-2 RNA (RT-PCR) NEGATIVE (Negative) S. pyogenes GrpA LONA Negative (Negative) Independent Interpretation I performed an independent interpretation of an: EKG Interpretation: My interpretation patient's 12 EKG done at 16:29 hours is as follows: Sinus rhythm with a rate of 65, normal TX interval, QRS duration QTC interval, no ST segment elevation, no ST segment depression, Q-waves in 3, AVF, V1 through V3. No significant T-wave abnormalities. Compared to EKG dated 01/25/2024 the Q-waves in 3, AVF, V1 and V2 are old. Radiology Impression Discussion of test interpretation with radiology: I have reviewed the radiologist's reading. Radiologist Impression: XR chest 2V IMPRESSION: 1. Low lung volume with elevated right hemidiaphragm, mild bronchovascular crowding in the lung bases. No definite active pulmonary disease. 2. Cardiac enlargement with TAVR. 3. Stable ancillary findings as discussed. Electronically signed by: Dario Sheldon MD 09/16/2024 04:34 PM EST Discharge Plan Discharge Clinical Impression: Weakness, Abdominal pain, Headache Patient Disposition: Home, Self-Care Instructions: Abdominal Pain (ED) Additional Instructions: Your blood work show that you had anemia which was similar to your anemia in the past. The rest of your blood work was unremarkable. Your COVID-19, influenza and RSV were negative. Your rapid strep test was negative. Your chest x-ray revealed no pneumonia. At this time your abdominal pain and headache have resolved which is reassuring. I believe that your fatigue and sleepiness is related to the COVID virus. Sometimes it takes 2-3 weeks for you to recover from a viral infection. Continue taking your medications as prescribed by your providers. Follow-up with your doctor in 2 days. Please return to the emergency department if your symptoms get worse or if you develop any symptoms that are concerning to you. Prescriptions: No Action fexofenadine 180 mg tablet 180 mg PO BEDTIME ferrous sulfate 325 mg (65 mg iron) tablet 325 mg PO DAILY vitamin E succinate 400 unit tablet 400 unit PO DAILY atorvastatin 80 mg tablet 80 mg PO BEDTIME Qty: 90 3RF aspirin 81 mg tablet,delayed release (DR/EC) 81 mg PO DAILY Qty: 90 3RF amitriptyline 10 mg tablet 10 mg PO BEDTIME Qty: 90 2RF fluticasone propionate 220 mcg/actuation HFA aerosol inhaler 2 puff inhalation BID 30 Days Qty: 12 5RF Rx Instructions: administer with spacer alendronate 70 mg tablet 70 mg PO MO@0900 Qty: 12 0RF metoprolol tartrate 25 mg tablet 25 mg PO BID Qty: 180 3RF Paxlovid 300 mg (150 mg x 2)-100 mg tablets,dose pack See Rx Instructions PO .COMPLEX 5 Days Qty: 30 0RF Rx Instructions: take TWO 150 mg tablets of nirmatrelvir with ONE 100 mg tablet of ritonavir twice daily for 5 days PO cyanocobalamin (vitamin B-12) 1,000 mcg Tablet 1,000 mcg PO DAILY pyridoxine (vitamin B6) 100 mg Tablet 100 mg PO DAILY ascorbic acid (vitamin C) [Vitamin C] 500 mg Tablet 500 mg PO DAILY diphenhydramine HCl [Benadryl] 25 mg Capsule 25 mg PO DAILY PRN (Reason: Itching) PreserVision AREDS-2 250-90-40-1 mg Capsule 1 tab PO BID [facility] 750 mg-100 mg- 1.65 mg-108 mg Tablet 1 tab PO BID lidocaine 4 % Adhesive Patch,Medicated 1 patch TOPICAL DAILY calcium carbonate-vitamin D3 600 mg-5 mcg (200 unit) Tablet 1 tab PO BEDTIME omeprazole 20 mg capsule,delayed release(DR/EC) 20 mg PO DAILY@0630 Rx Instructions: replaces prior dose of 20 mg once daily ceramides 1,3,6-II [CeraVe] Cream 1 appl TOPICAL 5XD PRN (Reason: SEBORRHEIC KERATOSES) (DME) blood pressure monitor Kit See Rx Instructions .Route Qty: 1 0RF Rx Instructions: As directed cholecalciferol (vitamin D3) 25 mcg (1,000 unit) capsule 25 mcg PO DAILY acetaminophen [Tylenol Extra Strength] 500 mg tablet 1,000 mg PO TID albuterol sulfate [ProAir HFA] 90 mcg/actuation HFA aerosol inhaler 2 puff inhalation Q6H PRN (Reason: Bronchodilation) ondansetron 4 mg tablet,disintegrating 4 mg PO Q8H PRN doxycycline hyclate 100 mg capsule 100 mg PO DAILY Rx Instructions: 1 hours prior to dental work Retacrit 40,000 unit/mL solution subcut ONCE PRN Print Language: Kinyarwanda
--- NOTE | 2024-09-16 15:38 | ECG_ITS ---
Test Reason : weakness Blood Pressure : */* mmHG Vent. Rate : 65 BPM Atrial Rate : 65 BPM P-R Int : 190 ms QRS Dur : 112 ms QT Int : 408 ms P-R-T Axes : 40 -31 49 degrees QTcB Int : 424 ms Sinus rhythm with Premature atrial complexes in a pattern of bigeminy Left axis deviation Incomplete left bundle branch block Left ventricular hypertrophy with repolarization abnormality ( R in aVL , Jesu product ) Abnormal ECG When compared with ECG of 25-Jan-2024 23:50, Premature atrial complexes are now Present Incomplete left bundle branch block is now Present Referred By: Valarie Colón Electronically Signed By: OLMAN ELMORE MD
[2024-09-16 16:40] LABS: MANUAL DIFF FLAG NO
[2024-09-16 16:42] LABS: Basophils Percent Auto 0.5 % (0-2); Eosinophils Absolute Auto 0.2 X10*3/uL (0.0-0.4); Eosinophils Percent Auto 2.4 % (0-4); Hemoglobin 10.4 g/dl (12.0-16.0); Imm Gran Abs Auto 0.02 X10*3/uL (0.00-0.03); Imm Gran Pct Auto 0.3 % (0.0-0.4); Lymphocytes Absolute Auto 2.6 X10*3/uL (1.2-4.9); Lymphocytes Percent Auto 32.6 % (20-40); Mean Corpuscular HGB Conc 33.5 g/dl (31.0-35.0); Mean Corpuscular Hemoglobin 32.9 pg (27.0-33.0); Mean Corpuscular Volume 98.1 fL (80.0-98.0); Mean Platelet Volume 10.4 fL (9.4-12.3); Monocytes Absolute Auto 0.6 X10*3/uL (0.1-1.2); Neutrophils Absolute Auto 4.5 x10*3/uL (2.0-8.3); Neutrophils Percent Auto 57.2 % (45-73); Platelet Count 192 X10*3/uL (160-400); Red Blood Count 3.16 X10*6/uL (4.20-5.50); Red Cell Distribution Width 14.3 % (11.0-16.0); White Blood Count 7.9 X10*3/uL (4.8-10.8)
[2024-09-16 16:50] LABS: Prothrombin Time 11.9 SEC (10.9-12.4)
[2024-09-16 17:03] LABS: Alanine Aminotransferase 70 U/L (0-31); Albumin Level 3.6 g/dL (3.5-5.0); Alkaline Phosphatase 65 U/L (39-117); Anion Gap 12 (12-20); Aspartate Amino Transferase 51 U/L (5-31); Bilirubin Total 0.4 mg/dL (0.0-1.0); Blood Urea Nitrogen 17 mg/dL (9-16); Calcium 8.8 mg/dL (8.4-10.2); Carbon Dioxide 21 mmol/L (22-29); Chloride 110 mmol/L (96-108); Creatinine Clr Calc Pharmacy 43.3; Estimated Glomerular Filt Rate 58; Glucose Random 119 mg/dL (60-115); Magnesium 1.8 mg/dL (1.6-2.6); Potassium 4.2 mmol/L (3.3-5.1); Sodium 139 mmol/L (135-145); Total Protein 6.7 g/dL (6.5-8.0)
[2024-09-16 17:10] LABS: Troponin-I High Sensitivity 21.6 ng/L (<3.5-17.0)
[2024-09-16 17:23] LABS: Influenza A PCR NEGATIVE (Negative); Influenza B PCR NEGATIVE (Negative); Resp Syncy Virus RNA Qual PCR NEGATIVE (Negative); SARS COV2 PCR INHOUSE NEGATIVE (Negative)
[2024-09-16 20:19] VITALS: BP 125/46; PULSE 63; RESP 20; TEMP 36.6; O2SAT 98
[2024-09-16 21:08] LABS: IDNOW Serial# 08D9AD1C; Strep A Nucleic Acid Negative (Negative)
[2024-09-16 23:31] VITALS: BP 138/62; PULSE 78; RESP 20; TEMP 36.7; O2SAT 98
== END 2024-09-16 23:33 | disposition home or self-care (01) ==
PROVIDERS: Registered Nurse Emergency; Emergency Provider Emergency Medicine Emergency Medical Services; PCP Internal Medicine
DX: R10.2 Pelvic and perineal pain (principal); R53.1 Weakness; R51.9 Headache, unspecified; R05.9 Cough, unspecified; I44.7 Left bundle-branch block, unspecified; H57.12 Ocular pain, left eye; R94.31 Abnormal electrocardiogram [ECG] [EKG]; Z79.899 Other long term (current) drug therapy; Z03.818 Encounter for observation for suspected exposure to other biological agents ruled out
CPT/HCPCS: 0241U; 71046; 80053; 83735; 84484; 85025; 85610; 87651; 93005; 99283; 99284

== ENCOUNTER → 2024-09-16 15:38 | Outpatient (BNV) | payer BC, SELFPAY | PROVIDERS: Emergency Provider Emergency Medicine Emergency Medical Services; PCP Internal Medicine; Visit Provider Internal Medicine Cardiovascular Disease | DX: I49.1 Atrial premature depolarization (principal); I44.7 Left bundle-branch block, unspecified; I42.2 Other hypertrophic cardiomyopathy | CPT/HCPCS: 93010 ==

== ENCOUNTER 2024-10-26 14:29 | Outpatient (AMB) | payer BC, SELFPAY ==
--- NOTE | 2024-10-26 14:33 | MHC.OFFVIS ---
Vital Signs 10/26/24 14:36 Height 5 ft 5 in Weight 156 lb 8.451 oz BMI 26.0 BP 120/60 Blood Pressure Location Lt brachial Position Sitting Pulse 75 Pulse Source Pulse Oximeter Intake Visit Reasons: 6m follow up Intake Note: 6 mth f/up Head Nurse Required: No Accompanied by: Daughter Allergies meperidine [From Demerol] Allergy (Severe, Verified 09/16/24 15:37) Nausea and Vomiting amoxicillin [AMOXICILLIN] Allergy (Intermediate, Verified 09/16/24 15:37) Rash cephalexin Allergy (Intermediate, Verified 09/16/24 15:37) Itching erythromycin base Allergy (Intermediate, Verified 09/16/24 15:37) Itching meloxicam Allergy (Intermediate, Verified 09/16/24 15:37) Abdominal Pain nitrofurantoin [From Macrobid] Allergy (Intermediate, Verified 09/16/24 15:37) Rash Penicillins Allergy (Intermediate, Verified 09/16/24 15:37) Rash Sulfa (Sulfonamide Antibiotics) [SULFA(SULFONAMIDE ANTIBIOTICS)] Allergy (Intermediate, Verified 09/16/24 15:37) Rash tramadol Allergy (Intermediate, Verified 09/16/24 15:37) Nausea and Vomiting codeine [CODEINE] Adverse Reaction (Intermediate, Verified 09/16/24 15:37) Nausea Medication List - Last Reconciled 10/26/24 by Yousif Palacios MD acetaminophen (Tylenol Extra Strength) 1,000 mg PO TID albuterol sulfate 90 mcg/actuation (ProAir HFA) 2 puffs inhalation Q6H PRN amitriptyline 10 mg PO BEDTIME aspirin 81 mg PO DAILY atorvastatin 80 mg PO DAILY blood pressure monitor As directed calcium carbonate-vitamin D3 600 mg-5 mcg (200 unit) 1 tab PO BEDTIME ceramides 1,3,6-II (CeraVe topical cream) 1 appl topical 5XD PRN cholecalciferol (vitamin D3) 25 mcg PO DAILY cyanocobalamin (vitamin B-12) 1,000 mcg PO DAILY diphenhydramine HCl (Benadryl) 25 mg PO DAILY PRN donepezil 5 mg PO DAILY doxycycline hyclate 100 mg PO DAILY epoetin kamilah-epbx (Retacrit) units subcut ONCE PRN ferrous sulfate 325 mg PO DAILY fexofenadine 180 mg PO BEDTIME fluticasone propionate 220 mcg/actuation 2 puffs inhalation BID 30 days gpegcyxb-wowtt-vmzvh-CF borate 750 mg-100 mg- 1.65 mg-108 mg ([facility]) 1 tab PO BID lidocaine 4% 1 patch topical DAILY metoprolol tartrate 25 mg PO BID pyridoxine (vitamin B6) 100 mg PO DAILY vit C,K-Cz-xmurn-lutein-zeaxan 250-90-40-1 mg (PreserVision AREDS-2) 1 tab PO BID vitamin E succinate 400 units PO DAILY HPI Comments Details: 87-year-old female here for follow-up. She had severe aortic stenosis as well as multivessel disease. She has SEISMIC ENGINEER of the right coronary artery and circumflex artery. She has severe ramus intermedius stenosis which was treated with drug-eluting stent. There is some error in the cardiac catheterization report showing that this is bare metal stent but in fact she had a drug-eluting stent. After that she was taken for transcatheter aortic valve replacement by Dr. Zelaya. She has been doing well since then. She has no chest pain or shortness of breath. 05/18/2023: She returns for follow-up. She is accompanied by her daughter. She is saying that she is not feeling well today. Very fatigued and tired suddenly. Her appetite was okay and she ate a breakfast. She has been experiencing off and on lower abdominal pain. No cough or phlegm production currently. No fevers reported by her. No bleeding concerns. Taking medications regularly. 10/26/2024: She is here for follow-up. She is complaining of fatigue and gets out of breath easily. She does not do any significant activities at home. She also has anemia and is getting Procrit. No bleeding. [facility] Medical History PONV (postoperative nausea and vomiting) COPD (chronic obstructive pulmonary disease) CHF (congestive heart failure) Macular degeneration Dementia HTN (hypertension) Breast cancer Atherosclerotic cardiovascular disease Coronary artery disease Anemia Aortic stenosis, severe Primary osteoarthritis involving multiple joints Osteoporosis Benign essential HTN Asthma Allergic rhinitis Surgical History History of acute cholecystitis S/P TAVR (transcatheter aortic valve replacement) S/P cardiac catheterization History of hand surgery History of heart artery stent History of laminectomy History of kyphoplasty History of cataract surgery History of D&C Family History Father Hypertension Mother Thyroid cancer Sister Breast cancer Social History Household Members: None Household Members Other:: assisted living [facility] Housing: Assisted Living Facility Housing Other:: [facility] Are you a primary adult daycare coordinator to a significant other at home: No Do you presently have visiting nurse or other home services: No Alcohol intake: current Alcohol intake frequency: holidays/special occasions only Alcohol type: beer and wine Patient Tobacco Use Status: Former Tobacco user Tobacco use type: Cigarette Years Smoked: 5 e-Cigarette/Vaping Use: Never Used Second Hand Smoke Exposure: No Advance Directives Date on File: 02/06/21 service: No Current occupational status: retired Cognitive needs: Yes (walker/cane) Hearing needs: Yes (hearing aide) Vision needs: Yes (glasses) Review of Systems Const Denies chills, Denies fatigue, Denies fever(s), Denies frequent falls, Denies weakness, Denies weight gain and Denies weight loss ENT Denies dizziness Card Denies chest pain, Denies leg edema, Denies lightheadedness, Denies palpitations, Denies dyspnea and Denies dyspnea on exertion Resp Denies cough, Denies dyspnea and Denies dyspnea on exertion GI Denies hematochezia Musc Denies abnormal gait, Denies muscle weakness, Denies numbness, Denies radiating pain into limb and Denies tingling Neuro Denies abnormal gait, Denies dizziness, Denies frequent falls, Denies numbness, Denies tingling and Denies weakness Endo Denies fatigue and Denies palpitations Physical Exam Vital Signs: Last Vital Signs Pulse 75 10/26/24 14:36 BP 120/60 10/26/24 14:36 BMI result Body Mass Index 26.0 GENERAL APPEARANCE: Pleasant. NECK: no carotid bruit, no jugular venous distention. SKIN: no suspicious lesions, warm and dry. HEART: systolic murmur, regular rate and rhythm. LUNGS: Clear to auscultation bilaterally. ABDOMEN: soft, nontender. EXTREMITIES: no edema. PERIPHERAL PULSES: equal. NEUROLOGIC: No gross deficits, AAO X 3 Assessment & Plan Assessment & Plan (1) Chronic diastolic heart failure: Code(s): I50.32 - Chronic diastolic (congestive) heart failure Category: Medical (2) S/P TAVR (transcatheter aortic valve replacement): Comment: 2020 Code(s): Z95.2 - Presence of prosthetic heart valve Category: Medical (3) Coronary artery disease: Comment: w/stent 2020 Code(s): I25.10 - Atherosclerotic heart disease of [place] coronary artery without angina pectoris Category: Medical Plan Pleasant 89-year-old female who is here for follow-up she has history of coronary disease status post PCI and severe aortic valve stenosis status post transcatheter aortic valve replacement. She has significant deconditioning at this stage and has slowed down. I have advised her to do physical activities as much as she can. Clinically not volume overloaded. Chronic anemia and she is getting Procrit as per daughter. She needs dental workup and will need endocarditis prophylaxis. She has multiple drug intolerances and allergies. Sending doxycycline 100 mg capsule for her which she should take 30 minute before any dental workup. Follow-up in few months. Thank you for allowing me to participate in the care of your patient. Please feel free to contact me if you have any questions. Medications: New doxycycline hyclate For endocarditis prophylaxis, please take 1 capsule 30-60 min before the dental procedure. 100 mg PO .prn 5 caps 0RF metoprolol succinate ER 50 mg PO DAILY 60 tabs 3RF Discontinued metoprolol tartrate Discontinued Reason: Doctor's Order 25 mg PO BID 180 tabs 3RF Coding Level of Care Code Est Pt Level 4 (88750) Diagnoses Chronic diastolic heart failure I50.32 S/P TAVR (transcatheter aortic valve replacement) Z95.2 Coronary artery disease I25.10
[2024-10-26 14:36] VITALS: BP 120/60; PULSE 75; BMI 26.0
--- OUTSIDE RECORDS SUMMARY | 2024-10-26 17:27 | XMS_ITS | Clinical Summary ---
Author Organization [facility] Address [address] [place] [address] Care Team Providers Care Business English Instructor Name Role Phone Pcp, No Primary Care Provider Unavailabl e Allergies Active Allergy Reactions Criticality Noted Date Comments Acetaminophen-Codeine Unknown/Patient an d Family Unable to Define,Other (See Comments),GI Intolerance/Nausea/ Vomiting Medium 09/05/2021 Other reaction(s): general feeling of illness codeine is the problem; liyah Tylenol fine codeine is the problem; liyah Tylenol fine Cephalexin Itching,Unknown/Pat ient and Family Unable to Define Medium 01/04/2021 Clarithromycin Unknown/Patient and Family Unable to Define Medium 11/29/2022 Codeine Other (See Comments) 09/05/2021 Erythromycin Unknown/Patient and Family Unable to Define,Rash/Dermati tis Medium 01/04/2021 Hydrocodone-Acetaminophen Hives Medium 01/04/2021 Meloxicam Unknown/Patient and Family Unable to Define Medium 01/04/2021 Meperidine Other (See Comments),Unknown/P atient and Family Unable to Define,GI Intolerance/Nausea/ Vomiting Medium 01/04/2021 Nitrofurantoin Unknown/Patient and Family Unable to Define Medium 01/04/2021 Penicillins Rash/Dermatitis,Unk nown/Patient and Family Unable to Define Medium 01/04/2021 All CIllins Sulfa Antibiotics Rash/Dermatitis,Hiv es Medium 01/04/2021 Sulfamethoxazole-Trimetho prim Other (See Comments),Rash/Derm atitis Low 09/05/2021 Tramadol Rash/Dermatitis Low 01/04/2021 Medications Medication Sig Dispensed Refills Start Date End Date Status ALBUTEROL IN Albuterol Active ASPIRIN 81 PO Aspir-81 Active ATORVASTATIN CALCIUM PO Atorvastatin Calcium Acti ve METOPROLOL TARTRATE PO as directed Orally Activ e CIMETIDINE HCL PO Cimetidine Active diphenhydrAMINE- APAP, sleep, (DIPHENHYDRAMINE -APAP PO) Diphenhydramine Active Ferrous Sulfate Dried (FERROUS SULFATE CR PO) Take by mouth. Active fluticasone (Flovent HFA) 110 mcg/puff inhaler Flovent HFA Active NIFEdipine ER (ADALAT CC) 30 MG 24 hr tablet NIFEdipine ER Active OMEprazole (PriLOSEC) 10 MG capsule Omeprazole Active albuterol (ProAir HFA) 108 (90 Base) MCG/ACT inhaler 1 puff as needed Inhalation every 4 hrs Active Cyanocobalamin (VITAMIN B 12 PO) Vitamin B 12 Active VITAMIN D PO Vitamin D Active alendronate (FOSAMAX) 70 MG tablet 1 tablet 30 minutes before the first food, beverage or medicine of the day with plain water Orally for 30 day(s) Active amitriptyline (ELAVIL) 10 MG tablet 1 tablet at bedtime Orally Once a day for 30 day(s) Active ascorbic acid (VITAMIN C) 1000 MG tablet Take 1,000 mg by mouth. Active Aspirin Low Dose 81 MG EC tablet Take 81 mg by mouth daily. 09/28/2022 Active atorvastatin (LIPITOR) 80 MG tablet Take 80 mg by mouth daily. 10/06/2022 Active calcium carbonate (CALTRATE) 1500 (600 Ca) MG tablet 1 tablet with meals Orally Twice a day for 30 day(s) Active cetirizine (ZyrTEC) 10 MG tablet Take 10 mg by mouth. Acti ve Chondroitin Sulfate 150 MG Cap as directed Orally Active glucosamine 500 MG Cap capsule 1 capsule with a meal Orally Once a day for 30 day(s) Active lysine (L-LYSINE) 1000 MG Tab tablet as directed Orally Act joey NIFEdipine ER (ADALAT CC) 30 MG 24 hr tablet 11/27/2022 Active vitamin E 400 UNIT capsule Take 400 Units by mouth. Active metoPROLOL TARTRATE (LOPRESSOR) 25 MG tablet 1 tablet Orally Twice a day for 30 day(s) Active doxycycline (VIBRAMYCIN) 100 MG capsuleIndicatio ns:Acute cystitis with hematuria Take 1 capsule (100 mg total) by mouth 2 (two) times a day. 14 capsule 11/29/2022 Active ciprofloxacin (CIPRO) 250 mg tabletIndication s:Urinary tract infection symptoms Take 1 tablet (250 mg total) by mouth 2 (two) times a day. 14 tablet 01/04/2023 Active Active Problems No known active problems Social History Tobacco Use Types Packs/Day Years Used Date Smoking Tobacco: Never Smokeless Tobacco: Never Tobacco Cessation:Counseling Given: Not Answered Sex and Gender Information Value Date Recorded Sex Assigned at Not on file Gender Identity Not on file Sexual Orientation Not on file Last Filed Vital Signs Vital Sign Reading Time Taken Comments Blood Pressure 139/56 01/24/2023 3:46 PM EDT Pulse 54 01/24/2023 3:46 PM EDT Temperature 36.2 ??C (97.2 ??F) 01/24/2023 3:46 PM ED T Respiratory Rate 16 01/24/2023 3:46 PM EDT Oxygen Saturation 99% 01/24/2023 3:46 PM EDT Inhaled Oxygen Concentration - - Weight 80.3 kg (177 lb) 11/29/2022 3:49 PM EDT Height 165.1 cm (5' 5 ) 11/29/2022 3:49 PM EDT Body Mass Index 29.45 11/29/2022 3:49 PM EDT Plan of Treatment Health Maintenance Due Date Last Done Comments DTaP/Tdap/Td Vaccines (1 - Tdap) 1955 Pneumococcal Vaccines 50+ (1 of 1 - PCV) 1986 Zoster (Shingles) Vaccine (1 of 2) 1986 DXA Bone Density (Females,Ag es 65 and older) 2001 RSV Vaccine 60 years and old er and Patients (1 - 1-dose 75+ series) 2011 Influenza Vaccine 03/24/2024 05/22/2021 COVID-19 Vaccine (2 - 2023-2 5 season) 2024 10/22/2020 Hepatitis B Vaccines Aged Out No long er eligible based on patient's age to complete this topic Care Teams Business English Instructor Relationship Specialty Start Date End Date Pcp, No PCP - General General Medicine 11/18/22
--- OUTSIDE RECORDS SUMMARY | 2024-10-26 17:27 | XMS_ITS | Encounter Summary ---
Author Organization [facility] Address [address] [facility] [address] [place] [address] Phone Care Team Providers Care Cake Former Name Role Phone Michael Shepard MD Primary Care Provider + Encounter Details Date Type Department Care Team (Late st Contact Info) Description 09/29/2024 Office Communication [facility] [address] [facility] [facility] [address] [place] [phone] Nereyda Dinh [address] [place] [phone] Social History Tobacco Use Types Packs/Day Years Used Date Smoking Tobacco: Former Cigarettes Smokeless Tobacco: Never Alcohol Use Standard Drinks/Week Comments Yes 0 (1 standard drink = 0.6 oz pur e alcohol) 2-3 xs a week one drink Comments Unknown Sex and Gender Information Value Date Recorded Sex Assigned at Not on file Legal Sex Female 12:39 PM EDT Gender Identity Not on file Sexual Orientation Straight 01/16/2021 4: 42 PM EDT documented as of this encounter Miscellaneous Notes * Telephone Encounter - Nereyda Dinh - 10/18/2024 1:47 PM EST [facility] home draw service order form was faxed today along with lab req to F : [phone]. I spoke to patient's daughter today and let her know that [facility] should be reaching out to her once they receive the form to set up an appt date and time. documented in this encounter Plan of Treatment Upcoming Encounters Date Type Department Care Team (Late st Contact Info) Description 10/27/2024 3:30 PM EST Clinical Support [facility] [address] [phone] 01/03/2025 3:30 PM EDT Office Visit [facility] [place] [id number] [phone] Shonna Pavon ARNP [address] [place] [phone] documented as of this encounter Visit Diagnoses Not on filedocumented in this encounter Care Teams Cake Former Relationship Specialty Start Date End Date Michael Shepard MD [address] [place] [address] PCP - General 08/24/20 documented as of this encounter
--- OUTSIDE RECORDS SUMMARY | 2024-10-26 17:27 | XMS_ITS | Encounter Summary ---
Author Organization [facility] Address [address] [facility] [address] [address] [place] [address] Phone Care Team Providers Care Electric Meter Setter Name Role Phone Michael Shepard MD Primary Care Provider + Encounter Details Date Type Department Care Team (Late st Contact Info) Description 02/03/2022 Telephone [facility] [address] [facility] [address] [address] [address] [place] [phone] Napoleon Schulz MD [address] [place] [address], [address] [place] [address] Social History Tobacco Use Types Packs/Day Years [...] encounter Miscellaneous Notes * Telephone Encounter - Napoleon Schulz MD - 02/17/2022 1:40 PM EDT yes * Telephone Encounter - Shonna Orr - 02/17/2022 8:01 AM EDT Was this ever taken care of? * Telephone Encounter - Shonna Orr - 02/06/2022 1:54 PM EDT pls advise * Telephone Encounter - Bere Gimenez - 02/06/2022 1:10 PM EDT Patient's daughter called and patient is in a lot of pain, Lower abdomen pain x 4 days geel she mayhave an infection in her bladder, please call Marilee Uribe daughter at [phone] * Telephone Encounter - Shonna Orr - 02/04/2022 11:05 AM EDT Called pt advised order sent to [facility] for urine and a urine culture, is there anything else you wouldlike to add * Telephone Encounter - Kacie Gunn - 02/03/2022 4:22 PM EDT Pt called she thinks she has a bladder infection because she is having a lot of pain urinating. This started Thursday night and has gotten progressively worse. Please call her back at [phone] Thank you documented in this encounter Plan of Treatment Upcoming Encounters Date Type Department Care Team (Late st Contact Info) Description 10/27/2024 3:30 PM EST Clinical Support [facility] [address] [phone] 01/03/2025 3:30 PM EDT Office Visit [facility] [address] [phone] Shonna Pavon ARNP [address] [phone] documented as of this encounter Procedures Procedure Name Priority Date/Time Associated Diagnosis Comments URINALYSIS WITH MICROSCOPIC Routine 02/04/2022 1:39 PM EDT Acute pyelonephritis URINE CULTURE Routine 02/04/2022 1:39 PM EDT Acute pyelonephritis documented in this encounter Results * Urine culture (02/04/2022 1:39 PM EDT) Specimen Description See Comment See Comment See Comment See Comment [facility] Comment: URINE CLEAN CATCH/MIDSTREAM NONE >100,000 COL/ML ??GROUP B BETA HEMOLYTIC STREPTOCOCCI ISOLATED. SUSCEPTIBILITY TESTING NOT ROUTINELY PERFORMED ON THIS ISOLATE. FINAL 02/05/2022 Testing performed or reported by [facility], a Service of [facility], [address] [place] [id number] Kaushal Amin MD, Manager Laboratory [facility]# [id number] Urine (Urine, Clean Catch) 02/04/2022 1:39 PM EDT 02/04/2022 1:40 PM EDT Napoleon Schulz MD LAB URINE ORDERABLES Final Re sult [facility] * (ABNORMAL) Urinalysis with microscopic (02/04/2022 1:39 PM EDT) Appearance LIGHT YELLOW [facility] Comment:CLEAR Specific [place] 1.018 (1.002-1. 030) [facility] pH Urine 6.0 (5.0-8.0) [facility] Albumin, Urine TRACE(A) (NEG) [facility] Glucose, Ur NEGATIVE (NEG) [facility] Ketones, Urine NEGATIVE (NEG) [facility] Bilirubin Urine NEGATIVE (NEG) [facility] Hemoglobin Presence in Urine NEGATIVE (NEG) [facility] Nitrite, Urine NEGATIVE (NEG) [facility] Leukocyte Esterase Urine 3+(A) (NEG) [facility] Urobilinogen Urine NORMAL (NORM) MG/DL [facility] WBC, Urine 11(H) (0-5) /HPF [facility] RBC, Urine 2 (0-3) /HPF [facility] Bacteria SLIGHT(A) (NEG) HPF [facility] Squamous Epithelial, Urine 3 (0-8) /HPF [facility] Comment: Testing performed or reported by [facility], a Service of [facility], [address] [place] [id number] Alex León MD, Manager Laboratory [facility]# [id number] Urine (Urine, Clean Catch) 02/04/2022 1:39 PM EDT 02/04/2022 1:40 PM EDT us Napoleon Schulz MD LAB URINE ORDERABLES Final Re sult [facility] documented in this encounter Visit Diagnoses Diagnosis Acute pyelonephritis- Primary documented in this encounter Care Teams Electric Meter Setter Relationship Specialty Start Date End Date Michael Shepard MD [facility] [address] [place] [address] , [address] [address] PCP - General 08/24/20 documented as of this encounter
--- OUTSIDE RECORDS SUMMARY | 2024-10-26 17:27 | XMS_ITS | Clinical Summary ---
Author Organization [facility] Address [address] [place] [address] Care Team Providers Care Bicycle Taxi Driver Name Role Phone Michael Shepard MD Primary Care Provider + Social History Tobacco Use Types Packs/Day Years Used Date Smoking Tobacco: Never Assessed Sex and Gender Information Value Date Recorded Sex Assigned at Not on file Gender Identity Not on file Sexual Orientation Not on file Plan of Treatment Health Maintenance Due Date Last Done Comments COVID-19 Vaccine (#1) 01/19/1936 Depression Screening 1948 Preventative Health Evaluation 1954 DTap / Tdap / Td (1 - Tdap) 1955 Shingrix-Zoster Vaccine (1 of 2) 1986 Fall Risk Assessment 2001 Osteoporosis Screening (DEXA Scan) 2001 Pneumococcal Vaccine (1 of 1 - PCV) 2001 RSV Adult > 60+ Yrs or Pregn ant (1 - 1-dose 75+ series) 2011 Influenza Vaccine (#1) 2024 Hepatitis B Vaccines Aged Out No long er eligible based on patient's age to complete this topic RSV Ped < 20 months Aged Out No longe r eligible based on patient's age to complete this topic Care Teams Bicycle Taxi Driver Relationship Specialty Start Date End Date Michael Shepard MD [address] [place] [address] Dr Carpio [address] [place] [address] [place] [address] PCP - General Internal Medicine 10/26/20
--- OUTSIDE RECORDS SUMMARY | 2024-10-26 17:27 | XMS_ITS | Encounter Summary ---
Author Organization [facility] Address [address] [phone] Phone Care Team Providers Care It Programmer Analyst Name Role Phone Michael Shepard MD Primary Care Provider + Encounter Details Date Type Department Care Team (Late st Contact Info) Description 10/25/2024 Office Communication [facility]. [address] [phone] Shonna Pavon ARNP [address] [phone] Social History Tobacco Use Types Packs/Day Years [...] * Telephone Encounter - Nereyda Dinh - 10/26/2024 9:56 AM EST Done, Spoke with patient's daughter. We are now just waiting on her PA approval , once approved I will call her for an appt date. documented in this encounter Plan of Treatment Upcoming Encounters Date Type Department Care Team (Late st Contact Info) Description 10/27/2024 3:30 PM EST Clinical Support [facility] [address] [place] [phone] 01/03/2025 3:30 PM EDT Office Visit [facility] [address] [phone] Shonna Pavon ARNP [address] [place] [phone] documented as of this encounter Visit Diagnoses Not on filedocumented in this encounter Care Teams It Programmer Analyst Relationship Specialty Start Date End Date Michael Shepard MD [address] [facility] [address] [place] [address] PCP - General 08/24/20 documented as of this encounter
--- OUTSIDE RECORDS SUMMARY | 2024-10-26 17:28 | XMS_ITS ---
Author Organization [facility] Address [address] [place] [address] Care Team Providers Care Material Checker Name Role Phone Michael Shepard Primary Care Provider Rinku Payan [phone] Allergies Allergen (clinical drug ingredient) Drug/Non Drug Allergy documented on EMR Reaction Allergy Type Onset Date Status acetaminophen / codeine Acetaminophen-Co dein e vomiting Drug Allergy Active amoxicillin Amoxicillin Unknown Drug Allergy Act joey sulfamethoxazole / trimethoprim Bactrim Unknown Drug Allergy Active Biaxin Unknown Drug Allergy Active cephalexin Cephalexin Unknown Drug Allergy Activ e meperidine Demerol vomiting Drug Allergy Active erythromycin Erythromycin Unknown Drug Allergy A ctive nitrofurantoin Macrodantin Unknown Drug Allergy Active meloxicam Meloxicam Unknown Drug Allergy Active tramadol Tramadol HCl Unknown Drug Allergy Acti ve Tylenol with Codeine #3 Unknown Drug Allergy Active codeine Codeine Unknown Drug Allergy Active Penicillin Unknown Drug Allergy Active REASON FOR VISIT Painful thick toenails which are aggrevated by shoes and causes difficulty standing/walking Medications Medication SIG (Take, Route, Frequency, Duration) Notes Start Date End Date Status Ocuvite as directed Orally Not-Taking Ferrous Sulfate 325 (65 Fe) MG 1 tablet Orally Once a day for 30 day(s) Not-Taking Nitro-Bid 2 % as directed Transdermal apply bid to both feet for 30 days Active Clindamycin HCl Not- Taking Plavix Not-Taking predniSONE 10 MG 1 tablet with food or milk Orally Once a day for 30 day(s) Not-Taking hydroCHLOROthiazide 25 MG 1 tablet Orall y Once a day for 30 day(s) Not-Taking Metoprolol & Diet Manage Prod 50 MG as directed Orally Not-Taking Albuterol Not-Taking HYDROcodone-Acetaminophen Not-Taking Simvastatin 10 MG 1 tablet in the evening Orally Once a day for 30 day(s) Not-Taking Cefaclor 250 MG 1 capsule Orally every 8 hrs for 10 day(s) Not-Taking Prednisone 5 mg twice a week N ot-Taking Cimetidine Not-Takin g Lisinopril 5 MG 1 tablet Orally Once a day for 30 day(s) Not-Taking Anastrozole 1 MG 1 tablet Orally Once a day Not-Taking Chondroitin Sulfate 150 MG as directed Orally Not-Taking LORazepam 0.5 MG 1 tablet at bedtime as needed Orally Once a day PRN Not-Taking Glucosamine 500 MG 1 capsule with a meal Orally Once a day for 30 day(s) Not-Taking Acidophilus as directed Orally Not-Taking ProAir HFA 108 (90 Base) MCG/ACT 1 puff as needed Inhalation every 4 hrs Active Ciprofloxacin Not-Ta [place] Vitamin E 100 UNIT 1 capsule Orally Once a day for 30 day(s) Active Vitamin D & vit B6 , C w/ jarvis hips Active Vitamin B 12 & cod liver Activ e Metoprolol Tartrate 25 MG 1 tablet Orall y Twice a day for 30 day(s) Active Lysine 1000 MG as directed Orally Active Flovent HFA Active NIFEdipine ER Active Omeprazole 20 MG as directed Orally Active Diphenhydramine Allergy PRN Ac tive Calcium 600 MG 1 tablet with meals Orally Twice a day for 30 day(s) Active Atorvastatin Calcium Active Aspir-81 Active Amitriptyline HCl 10 MG 1 tablet at bedtime Orally Once a day for 30 day(s) Active Cod Liver Oil Active Fexofenadine HCl 180 MG 1 tablet Swallow whole with water; do not take with fruit juices. Orally Once a day for 30 day(s) Active Acetaminophen PRN Active Doxycycline Hyclate Active Alendronate Sodium 70 MG 1 tablet 30 minutes before the first food, beverage or medicine of the day with plain water Orally for 30 day(s) Active Iron Active PreserVision AREDS 2 Active Vitamin B6 Active Vitamin C Active Stool Softener Activ e Social History Tobacco Use: Social History Observation Description Date Details (start date - stop date) Former Smoker NA - NA Tobacco Use/Smoking Question Answer Notes Are you a: former smoker How long has it been since y ou last smoked? < 1 month Additional Findings: Tobacco User Light cigarett e smoker ((1-9 cigs/day) Additional Findings: Tobacco Non-User Current no n-smoker Alcohol Screen Question Answer Notes Did you have a drink contain ing alcohol in the past year? Yes How often did you have a dri nk containing alcohol in the past year? 2 to 3 times a week (3 points) Points 3 Interpretation Positive Tobacco use other than smoking: Question Answer Notes Are you an other tobacco user? No Vital Signs Height 5 ft 5 in in 01/08/2024 Weight 165 lbs 01/08/2024 BMI 27.45 kg/m2 01/08/2024 Encounters Encounter Location Date Provider Diagnosis [facility] [place] [address] [place] [id number] 01/08/2024 Rinku Payan Tinea unguium B35.1 ; Pain in left foot M79.672 ; Pain in right foot M79.671 ; Pain in right toe(s) M79.674 ; Pain in left toe(s) M79.675 ; Unspecified atherosclerosis of [place] arteries of extremities, bilateral legs I70.203 ; Primary osteoarthritis, right ankle and foot M19.071 ; Metatarsalgia, right foot M77.41 ; Raynauds disease without gangrene I73.00 and Xerosis cutis L85.3 Assessments Encounter Date Diagnosis (ICD Code) Assessment Notes Treatment Notes Treatment Clinical Notes Section Notes 01/08/2024 Tinea unguium (ICD-10 - B35.1) 01/08/2024 Pain in left foot (ICD-10 - M79.672) 01/08/2024 Pain in right foot (ICD-10 - M79.671) 01/08/2024 Pain in right toe(s) (ICD-10 - M79.674) 01/08/2024 Pain in left toe(s) (ICD-10 - M79.675) 01/08/2024 Unspecified atherosclerosis of [place] arteries of extremities, bilateral legs (ICD-10 - I70.203) 01/08/2024 Primary osteoarthritis, right ankle and foot (ICD-10 - M19.071) 01/08/2024 Metatarsalgia, right foot (ICD-10 - M77.41) 01/08/2024 Raynauds disease without gangrene (ICD-10 - I73.00) 01/08/2024 Xerosis cutis (ICD-10 - L85.3) Plan Of Treatment Medication Medication Name Sig Start Date Stop Date Notes Nitro-Bid 2 % as directed Transder mal apply bid to both feet for 30 days Next Appt Details Follow Up: 3 Months, Reason: Procedure Notes * Category Sub-Category Detail Notes Keratoma Treatment Parring or Cutting o f Benign Hyperkeratotic Lesion(s) 64947 ( >4 Lesions) - The Benign hyperkeratotic [...] as necessary. Patient chooses, no pharmaceutical tx (92603) Nail Reduction Nail Reduction Trimming of dyst rophic nails performed to reduce/remove overall nail length and girth, by manual and electrical means with use of a nail nipper and/or dremel, to more viable healthy nail plate or bed tissue 6-10 (G0127) Progress Notes * Reinier DAVISONineDOB:[birth year] (88 yo F)Acc No.[id number]:01/08/2024 Progress Note Patient:?Saman Марина raya Provider:?Rinku Payan DPM :1935???Age:88 Y???Sex:Female D ate:01/08/2024 Address:[address] [place] [address] Pcp:Michael Shepard Subjective: * Chief Complaints: * ???Painful thick toenails wh ich are aggrevated by shoes and causes difficulty standing/walking * HPI: ???Painful Nails:?Pt States Last PCP Visit:?Date:?04/24/2023 * ROS:?General/Constitutional:?Nausea?denies.?Vomiting?denies.?Hunger Thirst?denies.?Loss appetite?denies.?Chills?denies.?Fatigue?denies.?Fever?denies.?Night Sweats?denies.?Unexplained weight loss?denies.?Unexplained weight gain?denies.?HEENTM:?Dentures?denies.?Dizziness?denies.?Glasses/contacts?admits.?Retinopathy?de nies.?Blurred/double vision?denies.?TMJ?denies.?Discharge/drainage?denies.?Implants?denies.?Sore throat?denies.?Dental implants?denies.?Hard of hearing ?denies.?Difficulty chewing/swallowing/speaking?denies.?Nose bleeds?denies.?Sore mouth?denies.?Respiratory:?On Oxygen?denies.?Pneumonia/pleurisy?denies.?Bronchitis?denies.?Emphysema?denies.?C oughing?denies.?Cough blood?denies.?Shortness of breath?denies.?Wheezing?denies.?Cardiovascular:?Pacemaker?denies.?MVP?denies.?WPW?denies.?CHF?denies.?Heart attack?denies.?Septal defect?denies.?Rapid beat?denies.?Chest pain ?denies.?Atrial Fib.?denies.?Murmur/Palpitations?denies.?Gastrointestinal:?Hemorrhoids?denies.?Stomach/Abdominal pain?denies.?Dark blood stool?denies.?Irritable bowel ?denies.?Constipation?denies.?Diarrhea?denies.?Hematology:?Swelling?admits.?Clots?denies.?Varicose Veins?denies.?Bruising?denies.?Bleeding problem?denies.?Genitourinary:?Blood urine?denies.?Frequent/Painfu/urination/bladder control?denies.?Kidney stones?denies.?Infection (UTI)?denies.?Nephropathy?denies.?sex trans dis (STD)?denies.?Prostate?denies.?Musculoskeletal:?Hammertoes?denies.?Bunions?denies.?Back Pain?denies.?Muscle Cramps/ Resting?denies.?Muscle cramps / walking?denies.?Generalized aches and pains?denies.?Weakness?denies.?Integ.:?[place]?denies.?Scars?denies.?Corns/calluses?denies.?Ingrown nails?denies.?Painful nails?denies.?Open Sores?denies.?Rashes?denies.?Neurologic:?Difficulty sleeping?denies.?Brain disorder?denies.?Numbness?denies.?Balance trouble?admits.?Confusion?denies.?Fainting/blackouts?denies.?Tingling?denies.?Tr emors?denies.? * Medical History:? * Surgical History:?foot surge ry 01/2012finger surgery mole removed from back 01/09/2014lower back syrgery 04/21/17R breast cancer 08/2016L hip surgery 2017laminotomy 11/16/20Ramu Artery Stent/catheter 11/28/20aortic valve replacement 01/31/21 * Hospitalization/Major Diagno stic Procedure:?Patient was admitted to [facility] for COPD. 09/18-09/22/12[facility]- admitted for stomache issues. 11/2017[facility]/ [facility] - Heart Issues Rehab few days 10/2020,11/2020[facility] -gallbladder isuues -Heart Attack 11/22/20 * Family History:?Mother: dece ased, diagnosed with Other malignant neoplasm of unspecified site.?Father: , diagnosed with Unspecified essential hypertension, Unspecified heart disease.?Siblings: alive, arthritis, foot problems, cancer.? * Social History:?Tobacco Use:?Tobacco Use/Smoking?Are you a:?former smoker ?How long has it been since you last smoked??< 1 month ?Additional Findings: Tobacco User?Light cigarette smoker ((1-9 cigs/day) ?Additional Findings: Tobacco Non-User?Current non-smoker ?Tobacco use other than smoking?Are you an other tobacco user??No ???Drugs/Alcohol:?Drugs?Have you used drugs other than those for medical reasons in the past 12 months??No ?Alcohol Screen?Did you have a drink containing alcohol in the past year??Yes ?How often did you have a drink containing alcohol in the past year??2 to 3 times a week (3 points) ?Points?3 ?Interpretation?Positive ???Miscellaneous:?Caffeine: yes, frequency:, 1-2 cups per day. ?Children: yes. ?Exercise: yes, walking, exercise for hip and arm. ?Marital status: . 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 * Medications:?TakingNitro-Bid 2 % Ointment as directed Transdermal apply bid to both feetStool Softener Vitamin C Vitamin B6 PreserVision AREDS 2 Iron Fexofenadine HCl 180 MG Tablet 1 tablet Swallow whole with water; do not take with fruit juices. Orally Once a dayCod Liver Oil Doxycycline Hyclate Acetaminophen , Notes: PRNAlendronate Sodium 70 MG Tablet 1 tablet 30 minutes before the first food, beverage or medicine of the day with plain water Orally Amitriptyline HCl 10 MG Tablet 1 tablet at bedtime Orally Once a dayAspir-81 Atorvastatin Calcium Calcium 600 MG Tablet 1 tablet with meals Orally Twice a dayDiphenhydramine , Notes: Allergy PRNFlovent HFA Lysine 1000 MG Tablet as directed Orally Metoprolol Tartrate 25 MG Tablet 1 tablet Orally Twice a dayNIFEdipine ER Omeprazole 20 MG Capsule Delayed Release as directed Orally ProAir HFA 108 (90 Base) MCG/ACT Aerosol Solution 1 puff as needed Inhalation every 4 hrsVitamin B 12 , Notes: & cod liverVitamin D , Notes: & vit B6 , C w/ jarvis hipsVitamin E 100 UNIT Capsule 1 capsule Orally Once a dayTaking Nitro-Bid 2 % Ointment as directed Transdermal apply bid to both feetTaking Stool Softener Taking Vitamin C Taking Vitamin B6 Taking PreserVision AREDS 2 Taking Iron Taking Fexofenadine HCl 180 MG Tablet 1 tablet Swallow whole with water; do not take with fruit juices. Orally Once a dayTaking Cod Liver Oil Taking Doxycycline Hyclate Taking Acetaminophen , Notes: PRNTaking Alendronate Sodium 70 MG Tablet 1 tablet 30 minutes before the first food, beverage or medicine of the day with plain water Orally Taking Amitriptyline HCl 10 MG Tablet 1 tablet at bedtime Orally Once a dayTaking Aspir-81 Taking Atorvastatin Calcium Taking Calcium 600 MG Tablet 1 tablet with meals Orally Twice a dayTaking Diphenhydramine , Notes: Allergy PRNTaking Flovent HFA Taking Lysine 1000 MG Tablet as directed Orally Taking Metoprolol Tartrate 25 MG Tablet 1 tablet Orally Twice a dayTaking NIFEdipine ER Taking Omeprazole 20 MG Capsule Delayed Release as directed Orally Taking ProAir HFA 108 (90 Base) MCG/ACT Aerosol Solution 1 puff as needed Inhalation every 4 hrsTaking Vitamin B 12 , Notes: & cod liverTaking Vitamin D , Notes: & vit B6 , C w/ jarvis hipsTaking Vitamin E 100 UNIT Capsule 1 capsule Orally Once a dayNot- Taking/PRNCiprofloxacin Glucosamine 500 MG Capsule 1 capsule with a meal Orally Once a dayLORazepam 0.5 MG Tablet 1 tablet at bedtime as needed Orally Once a day, Notes: PRNChondroitin Sulfate 150 MG Capsule as directed Orally Anastrozole 1 MG Tablet 1 tablet Orally Once a dayAcidophilus Capsule as directed Orally Cefaclor 250 MG Capsule 1 capsule Orally every 8 hrsSimvastatin 10 MG Tablet 1 tablet in the evening Orally Once a dayLisinopril 5 MG Tablet 1 tablet Orally Once a dayCimetidine Prednisone 5 mg twice a weekHYDROcodone-Acetaminophen Metoprolol & Diet Manage Prod 50 MG Miscellaneous as directed Orally hydroCHLOROthiazide 25 MG Tablet 1 tablet Orally Once a daypredniSONE 10 MG Tablet 1 tablet with food or milk Orally Once a dayAlbuterol Clindamycin HCl Ferrous Sulfate 325 (65 Fe) MG Tablet 1 tablet Orally Once a dayOcuvite Tablet as directed Orally Plavix Medication List reviewed and reconciled with the patientNot-Taking/PRN Ciprofloxacin Not-Taking/PRN Glucosamine 500 MG Capsule 1 capsule with a meal Orally Once a dayNot-Taking/PRN LORazepam 0.5 MG Tablet 1 tablet at bedtime as needed Orally Once a day, Notes: PRNNot-Taking/PRN Chondroitin Sulfate 150 MG Capsule as directed Orally Not-Taking/PRN Anastrozole 1 MG Tablet 1 tablet Orally Once a dayNot-Taking/PRN Acidophilus Capsule as directed Orally Not- Taking/PRN Cefaclor 250 MG Capsule 1 capsule Orally every 8 hrsNot-Taking/PRN Simvastatin 10 MG Tablet 1 tablet in the evening Orally Once a dayNot-Taking/PRN Lisinopril 5 MG Tablet 1 tablet Orally Once a dayNot-Taking/PRN Cimetidine Not-Taking/PRN Prednisone 5 mg twice a weekNot-Taking/PRN HYDROcodone-Acetaminophen Not-Taking/PRN Metoprolol & Diet Manage Prod 50 MG Miscellaneous as directed Orally Not-Taking/PRN hydroCHLOROthiazide 25 MG Tablet 1 tablet Orally Once a dayNot-Taking/PRN predniSONE 10 MG Tablet 1 tablet with food or milk Orally Once a dayNot-Taking/PRN Albuterol Not- Taking/PRN Clindamycin HCl Not-Taking/PRN Ferrous Sulfate 325 (65 Fe) MG Tablet 1 tablet Orally Once a dayNot-Taking/PRN Ocuvite Tablet as directed Orally Not-Taking/PRN Plavix Medication List reviewed and reconciled with the patient * Allergies:?ErythromycinBiaxi nDemerol: vomitingMacrodantinAmoxicillinCephalexinMeloxicamAcetaminophen-Codeine: vomitingTramadol HClBactrimCodeineTylenol with Codeine #3Penicillinyes[Allergies Verified] Objective: * Vitals:?Ht: 5 ft 5 in, Wt: 1 65, BMI: 27.45, Shoe size: 8.5-9, Wt-k.84 kg. * Examination: ???General Examination: ?GENERAL APPEARANCE:?alert, well hydrated, in no distress , good attention to hygiene.?ORIENTED:?person,place, and time.?Neurological: ?SENSORY:?Neurological exam reveals intact sensorium, pain sensation normal, vibration sensation intact, pinprick sensation is normal in the lower extremities, Pt denies, anesthesia, burning, paresthesia, tingling, B/L.?TINEL'S COMPRESSION:?negative tarsal tunnel, ángela pedis, and medial calcaneal nerves b/l .?BABINSKI REFLEX:?absent .?Vascular: ?DP PULSES:?0/4, B/L.?PT PULSES:?0/4, B/L.?CAPILLARY FILL TIME:?delayed, all digits, B/L.?SKIN TEMPERTURE GRADIENT OF THE LOWER EXTERMITIES:?decreased, cool to cold, proximal to distal, B/L.?HAIR GROWTH/TEXTURE/ELASTICITY/TURGOR:?decreased, B/L.?PIGMENTATION:?cyanosis.?VARICOSITIES:?present, moderate, nonpainful, B/L.?CLUBBING:?absent.?CLAUDICATION:?negative, b/l .?REST PAIN:?negative.?ECTOR'S SIGN:?absent, b/l.?PALPABLE CORDS:?absent, b/l.?Dermatologic: ?SKIN FINDINGS:? Skin exam reveals Keratotic lesion(s) located at, pl- medial both T5, TA, SUB MTH (s), 1, B/L , Heel(s), B/L dorsum T9 pipj , Plantar, T2 .?Orthopedic: ?GAIT ABNORMALITY:?pronated, abducted, b/l.?TAILOR'S BUNION:?Prominent, painful, inflammed 5th MTH/MPJ, B/L, Left more severe.?DIGITAL DEFORMITIES:?Digital contracture, PIPJ, 1-5 rt, incompl-reducable to push-up test, no over, nor underlapping.?Nails: ?NAILS are:?Elongated, overgrown, dystrophic, lytic, greater than 3mm thick, discolored and friable with crumbly malodorous subungual debris, with pain on palpation, T5, T6, remaining nails are elongated, overgrown, dystrophic.? 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 Plan: * Treatment: * Procedures:?Debride Nails 1-5:?Procedure:?Nail debridement performed extensively to reduce/remove overall nail length and girth, subungual debris, and necrotic tissue, by manual and electrical means by use of a nail nipper and/or dremel, to more viable healthy nail plate or bed tissue 1-5. Silver nitrate used for any petechial bleeding as necessary. Patient chooses, no pharmaceutical tx (95091).?Keratoma Treatment:?Parring or Cutting of Benign Hyperkeratotic Lesion(s)?54906 ( >4 Lesions) - The Benign hyperkeratotic lesions, as described above were pared, and/or cut utilizing a sterile #15 blade, tissue nippers, and/or dremel, Q8.?Nail Reduction:?Nail Reduction?Trimming of dystrophic nails performed to reduce/remove overall nail length and girth, by manual and electrical means with use of a nail nipper and/or dremel, to more viable healthy nail plate or bed tissue 6-10 (G0127).? * Procedure Codes:?61496 DEBRI DE NAIL, 1-5, Modifiers: XS 32032 TRIM SKIN LESIONS, OVER 4, Modifiers: Q8 G0127 TRIMMING DYSTROPHIC NAILS ANY #, Modifiers: Q8 * Follow Up:?3 Months * Images: * Sign off status: Completed true * Provider:?Rinku Payan DPM Date:? 024 Generated for Rambo alberts/Vinicius/eTransmitting on:?10/26/2024 05:27 PM EST History and Physical Notes * [...]
--- OUTSIDE RECORDS SUMMARY | 2024-10-26 17:28 | XMS_ITS | Clinical Summary ---
Author Organization [facility] Address [address] [facility] [address] [place] [address] Phone Care Team Providers Care Supervisor Screen Making Name Role Phone Michael Shepard MD Primary Care Provider + Allergies Active Allergy Reactions Criticality Noted Date Comments Acetaminophen-Codeine Other (see comments) 09/05/2021 Other reaction(s): general feeling of illness codeine is the problem; liyah Tylenol fine Cephalexin 01/04/2021 Codeine Other (see comments) 09/05/2021 Meperidine 01/04/2021 Erythromycin 01/04/2021 Nitrofurantoin 01/04/2021 Meloxicam 01/04/2021 Meperidine Hcl Other (see comments) 09/05/2021 Penicillins 01/04/2021 All CIllins Sulfa Antibiotics 01/04/2021 Sulfamethoxazole-Trimetho prim Other (see comments) 09/05/2021 Tramadol 01/04/2021 Hydrocodone-Acetaminophen 01/04/2021 Medications alendronate (FOSAMAX) 70 MG tablet TAKE 1 TABLET BY MOUTH ONCE WEEKLY 1 Active amitriptyline (ELAVIL) 10 MG tablet Active metoprolol tartrate (LOPRESSOR) 25 MG tablet Active acetaminophen (TYLENOL) 500 MG tablet Take by mouth 3 times a day Active calcium carbonate (OS-JOSE JUAN) 600 MG tablet Take 600 mg by mouth 1 (one) time each day Active omeprazole (PriLOSEC) [address] capsule Take 20 mg by mouth 1 (one) time each day Do not crush or chew. Active cyanocobalamin (VITAMIN B-12) 1000 MCG tablet Take 100 mcg by mouth 1 (one) time each day Active Ascorbic Acid (vitamin C) 1000 MG tablet Take 1,000 mg by mouth 1 (one) time each day Active alpha tocopherol (VITAMIN E) 400 units capsule Take 400 Units by mouth 1 (one) time each day Active pyridoxine (VITAMIN B-6) 100 MG tablet Take 100 mg by mouth 1 (one) time each day Active aspirin EC 81 MG EC tablet TAKE 1 TABLET BY MOUTH EVERY DAY Active cetirizine (ZyrTEC) 10 MG tablet Take 10 mg by mouth 1 (one) time each day Active glucosamine-cho ndroitin 500-400 MG tablet Take 1 tablet by mouth 3 (three) times a day Active fluticasone HFA (FLOVENT HFA) 220 MCG/ACT inhaler Inhale 1 puff 2 (two) times a day Rinse mouth with water after use to reduce aftertaste and incidence of candidiasis. Do not swallow. Active atorvastatin (LIPITOR) 80 MG tablet Take 80 mg by mouth 1 (one) time each day Active Doxycycline Hyclate 200 MG tablet delayed-release Take 100 mg by mouth Active FEXOFENADINE HCL PO Take by mouth Active ferrous sulfate 325 (65 Fe) MG tabletIndicatio ns:Iron Deficiency Take 1 tablet (325 mg total) by mouth every other day 15 tablet 11 4 07/06/20 25 Active Hospital, Clinic, or Other Facility Administered Medication Ordered Dose Route Frequency Start Date End Date Status Epoetin Mickey-epbx solution 20,000 UnitsIndications:Chronic kidney disease, stage 2 (mild),Anemia in chronic kidney disease 91797 Units IJ Every 14 days 05/31/2021 Active Epoetin Mickey-epbx solution 30,000 UnitsIndications:Anemia in chronic kidney disease 15736 Units IJ Once 08/08/2021 Active Active Problems Problem Noted Date Diagnosed Date Stage 3a chronic kidney disease 07/06/2024 Anemia 12/12/2021 Arthritis 12/12/2021 Atherosclerosis of [place] arteries of the extrem ities 12/12/2021 Congestive heart failure 12/12/2021 Coronary arteriosclerosis 12/12/2021 Hypercholesterolemia 12/12/2021 Hypertensive disorder 12/12/2021 Infiltrating duct carcinoma of breast 12/12/2021 Localized, primary osteoarthritis of the ankle a nd/or foot 12/12/2021 Non-specific colitis 12/12/2021 Pain in right foot 12/12/2021 Raynaud's disease 12/12/2021 Severe aortic valve stenosis 12/12/2021 Anemia in chronic kidney disease 03/29/2021 Chronic kidney disease, stage 2 (mild) Encounters Date Type Department Care Team Description 10/25/2024 Office Communication [facility] [address] [facility] [address] [place] [phone] Shonna Pavon ARNP 09/29/2024 Office Communication [facility] [address] [facility] [address] [place] [phone] Nereyda Dinh 08/12/2024 Orders Only [facility] [place] [address] [place] [phone] Lesly Moreno, KATINA Anemia in chronic kidney disease; Chronic kidney disease, stage 2 (mild) 08/12/2024 Orders Only [facility] [place] [address] [place] [phone] Shonna Pavon ARNP Chronic kidney disease, stage 2 (mild) from Last 3 Months Immunizations Name Administration Dates Next Due Influenza, Unspecified 05/22/2021 Moderna SARS-COV-2 10/22/2020 Social History Tobacco Use Types Packs/Day Years Used Date Smoking Tobacco: Former Cigarettes Smokeless Tobacco: Never Tobacco Cessation:Counseling Given: Not Answered Alcohol Use Standard Drinks/Week Comments Yes 0 (1 standard drink = 0.6 oz pur e alcohol) 2-3 xs a week one drink Comments Unknown Sex and Gender Information Value Date Recorded Sex Assigned at Not on file Legal Sex Female 12:39 PM EDT Gender Identity Not on file Sexual Orientation Straight 01/16/2021 4: 42 PM EDT Last Filed Vital Signs Vital Sign Reading Time Taken Comments Blood Pressure 120/60 07/06/2024 1:56 PM EST Pulse 62 07/06/2024 1:56 PM EST Temperature - - Respiratory Rate - - Oxygen Saturation 98% 12/18/2022 2:32 PM EDT Inhaled Oxygen Concentration - - Weight 74.8 kg (165 lb) 07/06/2024 1:56 PM EST Height 165.1 cm (5' 5 ) 12/12/2021 3:20 PM EDT Body Mass Index 27.46 12/12/2021 3:20 PM EDT Plan of Treatment Upcoming Encounters Date Type Department Care Team (Late st Contact Info) Description 10/27/2024 3:30 PM EST Clinical Support [facility] [address] [phone] 01/03/2025 3:30 PM EDT Office Visit [facility] [address] [phone] Shonna Pavon ARNP [address] [phone] Health Maintenance Due Date Last Done Comments Pneumococcal Vaccine: 65+ Years (1 of 2 - PCV) 1941 Influenza Vaccine Completed 06/01/2024, 05/22/2021 Hepatitis B Vaccine Aged Out No longe r eligible based on patient's age to complete this topic Procedures Procedure Name Priority Date/Time Associated Diagnosis Comments IRON PANEL (FE, TIBC, TSAT) Routine 10/20/2024 12:00 AM EST Anemia in chronic kidney disease Stage 3a chronic kidney disease (HCC) FERRITIN Routine 10/20/2024 12:00 AM EST Anemia in chronic kidney disease Stage 3a chronic kidney disease (HCC) CBC Routine 10/20/2024 12:00 AM EST Anemia in chronic kidney disease Stage 3a chronic kidney disease (HCC) from Last 3 Months Results * (ABNORMAL) Iron Panel (Fe, TIBC, TSAT) (10/20/2024 12:00 AM EST) TIBC 210(L) 250 - 450 ug/dL [facility] UIBC 157 118 - 369 ug/dL [facility] Iron 53 27 - 139 ug/dL [facility] Iron Saturation (TSat) 25 15 - 55 % [facility] Blood (Blood, Venous) 10/20/2024 10/20/2024 Comment:Blood, Venou Shonna Pavon [facility] LAB BLOOD ORDERABLES Final Result [facility] [address] [place] [address] * (ABNORMAL) CBC (10/20/2024 12:00 AM EST) Pathologist [facility] WBC 7.2 3.4 - 10.8 x10E3/uL [facility] RBC 2.79(L) 3.77 - 5.28 x10E6/uL [facility] Hemoglobin 9.1(L) 11.1 - 15.9 g/dL [facility] Hematocrit 27.8(L) 34.0 - 46.6 % [facility] MCV 100(H) 79 - 97 fL [facility] MCH 32.6 26.6 - 33.0 pg [facility] MCHC 32.7 31.5 - 35.7 g/dL [facility] RDW 12.7 11.7 - 15.4 % [facility] Platelets 195 150 - 450 x10E3/uL [facility] Blood (Blood, Venous) 10/20/2024 10/20/2024 Comment:Blood, Venou Shonna Pavon PRODUCTION EDITOR LAB BLOOD ORDERABLES Final Result [facility] [address] [place] [address] * (ABNORMAL) Ferritin (10/20/2024 12:00 AM EST) Ferritin 792(H) 15 - 150 ng/mL [facility] Blood (Blood, Venous) 10/20/2024 10/20/2024 Comment:Blood, Venou Shonna Pavon PRODUCTION EDITOR LAB BLOOD ORDERABLES Final Result Performing Organization Address City/[facility]/ZIP Co de Phone Number [employer] [facility] [address] [place] [phone] from Last 3 Months Insurance [facility] Care Teams Supervisor Screen Making Relationship Specialty Start Date End Date Michael Shepard MD [address] , [address] [address] PCP - General 08/24/20
--- OUTSIDE RECORDS SUMMARY | 2024-10-26 17:28 | XMS_ITS | Encounter Summary ---
Author Organization [facility] Address [address] [facility] [address] [place] [address] Phone Care Team Providers Care Marine Equipment Research Engineer Name Role Phone Michael Shepard MD Primary Care Provider + Encounter Details Date Type Department Care Team (Late Contact Info) Description 03/07/2021 Orders Only [facility] [address] [facility] [address] [place] [phone] Kamini Uribe [place] Anemia in chronic kidney disease (Primary Dx) Social History Tobacco Use Types Packs/Day Years [...] Orientation Straight 01/16/2021 4: 42 PM EDT COVID-19 Exposure Response Date Recorded In the last month, have you been in contact with someone who was confirmed or suspected to have Coronavirus / COVID-19? No / Unsure 02/13/2021 12:56 PM EDT documented as of this encounter Plan of Treatment Upcoming Encounters Date Type Department Care Team (Late st Contact Info) Description 10/27/2024 3:30 PM EST Clinical Support [facility] [address] [facility] [address] [place] [phone] 01/03/2025 3:30 PM EDT Office Visit [facility] [address] [phone] Pavon ShonnaRUSTY [address] [phone] Scheduled Orders Name Type Priority Associated Diagnoses Orde r Schedule Iron Panel (Fe, TIBC, TSAT) Lab Routine Anemia in chronic kidney disease Expected: 03/07/2021, Expires: 04/07/2022 CBC and differential Lab Routine Anemia in chronic kidney disease Expected: 03/07/2021, Expires: 04/07/2022 Ferritin Lab Routine Anemia in chronic kidney disease Expected: 03/07/2021, Expires: 04/07/2022 documented as of this encounter Visit Diagnoses Diagnosis Anemia in chronic kidney disease- Primary documented in this encounter Care Teams Marine Equipment Research Engineer Relationship Specialty Start Date End Date Michael Shepard MD [address] [facility] [address] [place] [address] PCP - General 08/24/20 documented as of this encounter
--- OUTSIDE RECORDS SUMMARY | 2024-10-26 17:28 | XMS_ITS ---
Author [facility] Address [address] [place] [address] Care Team Providers Care Hot Knife Cutter Name Role Phone Michael Shepard Primary Care Provider Rinku Payan [phone] REASON FOR VISIT Painful thick toenails which are aggrevated by shoes and causes difficulty standing/walking Medications Medication SIG (Take, Route, Frequency, Duration) Notes Start Date End Date Status Nitro-Bid 2 % as directed Transder mal apply bid to both feet for 30 days Active Encounters Encounter Location Date Provider [facility] [address] [place] [phone] 04/08/2024 Rinku Payan Tinea unguium B35.1 ; Pain in left foot M79.672 ; Pain in right foot M79.671 ; Pain in right toe(s) M79.674 ; Pain in left toe(s) M79.675 ; Unspecified atherosclerosis of [place] arteries of extremities, bilateral legs I70.203 ; [...] (ICD-10 - M79.675) 04/08/2024 Unspecified atherosclerosis of [place] arteries of extremities, bilateral legs (ICD-10 - [...] or Cutting o f Benign Hyperkeratotic Lesion(s) 88722 ( >4 Lesions) - The Benign hyperkeratotic [...] as necessary. Patient chooses, no pharmaceutical tx (67134) Nail Reduction Nail Reduction Trimming of dyst rophic nails performed to reduce/remove overall nail length and girth, by manual and electrical means with use of a nail nipper and/or dremel, to more viable healthy nail plate or bed tissue 6-10 (G0127) Progress Notes * Reinier DAVISONineDOB:[birth year] (89 yo F)Acc No.[id number]:04/08/2024 Progress Note Patient:?Марина DAVISON Provider:?Rinku Payan DPM :1935???Age:88 Y???Sex:Female D ate:04/08/2024 [facility] [place] Pcp:Michael Shepard Subjective: * Chief Complaints: * ???1. Painful thick toenails which are aggrevated by shoes and causes difficulty standing/walking. * HPI: ???Painful Nails:?Pt States Last PCP [...] sleeping?denies.?Brain disorder?denies.?Numbness?denies.?Balance trouble?admits.?Confusion?denies.?Fainting/blackouts?denies.?Tingling?denies.?Tr emors?denies.? * Medical History:? Objective: * Vitals:? * Examination: ???General Examination: ?GENERAL APPEARANCE:?alert, well hydrated, in no distress , good attention to hygiene.?ORIENTED:?person,place, and time.?Neurological: ?SENSORY:?Neurological exam reveals intact sensorium, pain sensation normal, vibration sensation intact, pinprick sensation is normal in the lower extremities, Pt denies, anesthesia, burning, paresthesia, tingling, B/L.?TINEL'S COMPRESSION:?negative tarsal tunnel, ángela pedis, and medial calcaneal nerves b/l.?BABINSKI REFLEX:?absent.?Vascular: ?DP PULSES (B):?0/4, B/L.?PT PULSES (B):?0/4, B/L.?CAPILLARY FILL TIME:?delayed, all digits, B/L.?TROPHIC CONDITION-TEXTURE/ELASTICITY/TURGOR/HAIR GROWTH (B):?decreased, B/L.?TEMPERTURE GRADIENT (C):?decreased, cool to cold, proximal to distal, B/L.?PIGMENTATION:?cyanosis.?CLAUDICATION (C):?negative, b/l .?REST PAIN:?negative.?VARICOSITIES:?present, moderate, nonpainful, B/L.?ECTOR'S SIGN:?absent, b/l.?PALPABLE CORDS:?absent, b/l.?CLUBBING:?absent.?Dermatologic: ?SKIN FINDINGS:? Skin exam reveals Keratotic lesion(s) located at, pl- medial both T5, TA, SUB MTH (s), 1, B/L , Heel(s), B/L dorsum T9 pipj , Plantar, T2.?Orthopedic: ?GAIT ABNORMALITY:?pronated, abducted, b/l.?TAILOR'S BUNION:?Prominent, painful, inflammed 5th MTH/MPJ, B/L, Left more severe.?DIGITAL DEFORMITIES:?Digital contracture, PIPJ, 1-5 rt, incompl-reducable to push-up test, no over, nor underlapping.?Nails: ?NAILS are:?Elongated, overgrown, dystrophic, lytic, greater than 3mm thick, discolored and friable with crumbly malodorous subungual debris, with pain on palpation, T5, T6, remaining nails are elongated, overgrown, dystrophic.? 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 Xerosis cutis - L85.3??? Plan: * Treatment: * Procedures:?Debride Nails 1-5:?Procedure:?Nail debridement performed extensively to reduce/remove overall nail length and girth, subungual debris, and necrotic tissue, by manual and electrical means by use of a nail nipper and/or dremel, to more viable healthy nail plate or bed tissue 1-5. Silver nitrate used for any petechial bleeding as necessary. Patient chooses, no pharmaceutical tx (18838).?Keratoma Treatment:?Parring or Cutting of Benign Hyperkeratotic Lesion(s)?36024 ( >4 Lesions) - The Benign hyperkeratotic [...] or bed tissue 6-10 (G0127).? * Procedure Codes:?48521 JOSEP LIU NAIL, 1-5, Modifiers: XS , 89783 TRIM SKIN LESIONS, OVER 4, Modifiers: Q8 , G0127 TRIMMING DYSTROPHIC NAILS ANY #, Modifiers: Q8 * Follow Up:?3 Months * Images: * The named appointment provid er may or may not be the originator of this progress note, and it is not deemed complete until electronically signed by the appointment provider. Sign off status: Pending * Provider:?Rinku Payan DPM Date:? 024 Generated for Rambo alberts/Vinicius/Jose R on:?10/26/2024 05:27 PM EST History and Physical [...]
--- OUTSIDE RECORDS SUMMARY | 2024-10-26 17:28 | XMS_ITS ---
Author Organization [facility] Address [address] [place] [address] Care Team Providers Care Weekend Anchor Name Role Phone Michael Shepard Primary Care Provider Rinku Payan [phone] REASON FOR VISIT cx 04/08/24 appt Encounters Encounter Location Date [facility] [place] [address] [place] [phone] 04/06/2024 Rinku Payan Plan Of Treatment No Information Progress Notes * Reinier DAVISONineDOB:[birth year] (88 yo F)Acc No.[id number]:04/06/2024 Patient:?Reinier Davisonsabi raya :1935???Age:88 Y???Sex:Female Address:[address] [place] [address], [address] * true * Date:? Generated for Rebeccai lexus/Vinicius/eTransmitting on:?10/26/2024 05:27 PM EST
== END 2024-10-26 15:04 | disposition home or self-care (01) ==
PROVIDERS: PCP Internal Medicine; Visit Provider Internal Medicine Cardiovascular Disease
DX: I50.32 Chronic diastolic (congestive) heart failure (principal); Z95.2 Presence of prosthetic heart valve; I25.10 Atherosclerotic heart disease of native coronary artery without angina pectoris
CPT/HCPCS: 99214

== ENCOUNTER 2024-11-03 15:19 | Outpatient (AMB) | payer BC, SELFPAY ==
[2024-11-03 15:34] VITALS: BP 120/60; PULSE 69; O2SAT 96; BMI 26.0
--- NOTE | 2024-11-03 15:34 | A.OFFVIS_ITS ---
Vital Signs 11/03/24 15:34 Height 5 ft 5 in Weight 156 lb BMI 26.0 BP 120/60 Blood Pressure Location Lt brachial Position Sitting Pulse 69 Pulse Source Pulse Oximeter Pulse Oximetry (%) 96 Oxygen Delivery Method Room Air Intake Visit Reasons: COPD Intake Note: pt is here for follow up and states she is doing okay with breathing, Engine Dynamometer Tester Required: No Allergies meperidine [From Demerol] Allergy (Severe, Verified 11/03/24 15:38) Nausea and Vomiting amoxicillin [AMOXICILLIN] Allergy (Intermediate, Verified 11/03/24 15:38) Rash cephalexin Allergy (Intermediate, Verified 11/03/24 15:38) Itching erythromycin base Allergy (Intermediate, Verified 11/03/24 15:38) Itching meloxicam Allergy (Intermediate, Verified 11/03/24 15:38) Abdominal Pain nitrofurantoin [From Macrobid] Allergy (Intermediate, Verified 11/03/24 15:38) Rash Penicillins Allergy (Intermediate, Verified 11/03/24 15:38) Rash Sulfa (Sulfonamide Antibiotics) [SULFA(SULFONAMIDE ANTIBIOTICS)] Allergy (Intermediate, Verified 11/03/24 15:38) Rash tramadol Allergy (Intermediate, Verified 11/03/24 15:38) Nausea and Vomiting codeine [CODEINE] Adverse Reaction (Intermediate, Verified 11/03/24 15:38) Nausea Medication List - Last Reconciled 11/03/24 by Marie Powers MD acetaminophen (Tylenol Extra Strength) 1,000 mg PO TID albuterol sulfate 90 mcg/actuation (ProAir HFA) 2 puffs inhalation Q6H PRN amitriptyline 10 mg PO BEDTIME aspirin 81 mg PO DAILY atorvastatin 80 mg PO DAILY blood pressure monitor As directed calcium carbonate-vitamin D3 600 mg-5 mcg (200 unit) 1 tab PO BEDTIME ceramides 1,3,6-II (CeraVe topical cream) 1 appl topical 5XD PRN cholecalciferol (vitamin D3) 25 mcg PO DAILY cyanocobalamin (vitamin B-12) 1,000 mcg PO DAILY diphenhydramine HCl (Benadryl) 25 mg PO DAILY PRN donepezil 5 mg PO DAILY doxycycline hyclate 100 mg PO .prn epoetin kamilah-epbx (Retacrit) units subcut ONCE PRN ferrous sulfate 325 mg PO Q OTHER DAY fexofenadine 180 mg PO BEDTIME fluticasone propionate 220 mcg/actuation 2 puffs inhalation BID 30 days nplwobpo-moehh-ukiaf-CF borate 750 mg-100 mg- 1.65 mg-108 mg ([facility] dloHaiti) 1 tab PO BID lidocaine 4% 1 patch topical DAILY PRN metoprolol succinate ER 50 mg PO DAILY pyridoxine (vitamin B6) 100 mg PO DAILY vit C,Q-Tj-oxrfh-lutein-zeaxan 250-90-40-1 mg (PreserVision AREDS-2) 1 tab PO BID vitamin E succinate 400 units PO DAILY Do you need a note to return to daycare/school/sports/work: No HPI HPI COPD: Details: Beena comes of to 6 months for follow-up for her pulmonary issues. She is living in an assisted living place , complains of general fatigue, and lot of pain, especially in the right shoulder and back. She also has chronic renal failure with secondary anemia. As far as breathing is concerned it has been very stable without any. Acute exacerbation She denies cough or wheezing. And luckily she has had no respiratory infection. She uses Flovent 2 puffs b.i.d. regularly and has to use albuterol only once in a while . [facility] Medical History PONV (postoperative nausea and vomiting) COPD (chronic obstructive pulmonary disease) CHF (congestive heart failure) Macular degeneration Dementia HTN (hypertension) Breast cancer Atherosclerotic cardiovascular disease Coronary artery disease Anemia Aortic stenosis, severe Primary osteoarthritis involving multiple joints Osteoporosis Benign essential HTN Asthma Allergic rhinitis Surgical History History of acute cholecystitis S/P TAVR (transcatheter aortic valve replacement) S/P cardiac catheterization History of hand surgery History of heart artery stent History of laminectomy History of kyphoplasty History of cataract surgery History of D&C Family History Father Hypertension Mother Thyroid cancer Sister Breast cancer Social History Household Members: None Household Members Other:: assisted living [facility] Housing: Assisted Living Facility Housing Other:: [facility] Are you a primary nurse care manager to a significant other at home: No Do you presently have visiting nurse or other home services: No Alcohol intake: current Alcohol intake frequency: holidays/special occasions only Alcohol type: beer and wine Patient Tobacco Use Status: Former Tobacco user Tobacco use type: Cigarette Years Smoked: 5 e-Cigarette/Vaping Use: Never Used Second Hand Smoke Exposure: No Advance Directives Date on File: 02/06/21 service: No Current occupational status: retired Cognitive needs: Yes (walker/cane) Hearing needs: Yes (hearing aide) Vision needs: Yes (glasses) Review of Systems Const All systems reviewed & are unremarkable except as noted in HPI and below Eyes Reports no additional complaints ENT Reports nasal congestion (MILD OFF AND ON) Card Denies chest pain, Denies irregular heart rhythm, Denies leg edema and Reports dyspnea on exertion Resp Reports as per HPI and Reports dyspnea on exertion GI Reports heartburn (Controlled with med) Reports urinary incontinence Musc Reports back pain and Reports arthralgias (Shoulders and knees ) Skin/Breast Reports system reviewed and no additional complaints, except as documented Neuro Reports no additional complaints (Generally slow and weak) Psych Reports no additional complaints Physical Exam Const Other: Chronically sick and pale looking, walks with walker. General: comfortable, no acute distress, alert and awake Orientation/consciousness: patient oriented x3 HEENT Head: Yes normal to inspection General nose exam: No nasal polyps present and No nasal discharge present Face and sinus: Yes sinuses nontender Mouth: oropharynx normal Throat: Yes posterior oropharynx normal Eyes General: appearance normal, both eyes and all related structures Neck Neck: Yes normal visual inspection, Yes no lymphadenopathy, Yes trachea midline and Yes no JVD Thyroid: Thyroid normal Chest Chest palpation & inspection: normal inspection of the chest, normal palpation of entire chest wall and no tenderness Resp Effort & Inspection: normal respiratory effort and no cough Auscultation: clear to auscultation bilaterally, no crackles and no wheezes Percussion: percussion normal Cardio Palpation: normal PMI Rate: regular rate Rhythm: regular rhythm Heart sounds: no gallops and no murmurs GI Palpation (GI): Soft to palpation, nontender, No hepatosplenomegaly present and no masses Auscultation: normal bowel sounds Back/Spine/Pelvis Thoracic/Lumbar Spine: thoracic and lumbar spine normal to inspection, thoraco- lumbar ROM limited and thoraco-lumbar spasm Skin General skin exam: no rashes or lesions noted and other (Multiple echymotic spots on the arms .) Neuro General: patient oriented x3, No gait normal (Slow secondary to degenerative arthritis of the spine and patient uses walk) and no focal motor deficits Cranial nerves: Yes CN's II-XII intact bilaterally Extrem General: Yes normal to inspection, Yes no calf tenderness and Yes edema (Mild pitting edema around the ankles) Psych Appearance: grossly normal and well kempt Speech and movement: Normal speech and movement present Assessment & Plan Assessment & Plan (1) Asthma: Comment: Chronic, bronchial asthma, moderate,, well controlled at this time. Code(s): J45.909 - Unspecified asthma, uncomplicated Category: Medical Qualifiers: Asthma severity: mild Asthma persistence: unspecified Asthma complication type: uncomplicated Qualified Code(s): J45.909 - Unspecified asthma, uncomplicated Plan: TX :Continue Flovent -220 2 puffs b.i.d. and ProAir 2 puffs Q 4-6 hours p.r.n. (2) Pulmonary hypertension: Comment: SECONDARY TO CARDIAC VAVULAR DISEASE, AND CHRONIC BRONCHIAL ASTHMA. STABLE. Code(s): I27.20 - Pulmonary hypertension, unspecified Category: Medical Plan: No specific medicine needed for this, Coding Level of Care Code Est Pt Level 3 (65575) Diagnoses Mild asthma without complication, unspecified whether persistent J45.909 Asthma severity: mild Asthma persistence: unspecified Asthma complication type: uncomplicated Pulmonary hypertension I27.20
--- OUTSIDE RECORDS SUMMARY | 2024-11-03 18:57 | XMS_ITS | Encounter Summary ---
Author Organization [facility] Address [address] [facility] [address] [place] [address] Phone Care Team Providers Care Critical Care Nurse Specialist Name Role Phone Michael Shepard MD Primary Care Provider + Encounter Details Date Type Department Care Team (Late st Contact Info) Description 02/03/2022 Telephone [facility] [address] [facility] [address] [place] [phone] Napoleon Schulz MD [address] [place] [address], [address] [place] [address] Social History Tobacco Use Types Packs/Day Years [...] bladder, please call Marilee Uribe daughter at [phone] * Telephone Encounter - Shonna Orr - 02/04/2022 11:05 AM EDT Called pt advised order sent to [facility] for urine and a urine culture, is there anything else you wouldlike to add * Telephone Encounter - Kacie Gunn - 02/03/2022 4:22 PM EDT Pt called she thinks she has a bladder infection because she is having a lot of pain urinating. This started Thursday night and has gotten progressively worse. Please call her back at [phone] Thank you documented in this encounter Plan of Treatment Upcoming Encounters Date Type Department Care Team (Late st Contact Info) Description 01/03/2025 3:30 PM EDT Office Visit [facility] P.[facility]riny [address] [address] Shonna Pavon ARNP [address] [address] documented as of this encounter Procedures Procedure Name Priority Date/Time Associated Diagnosis Comments URINALYSIS WITH MICROSCOPIC Routine 02/04/2022 1:39 PM EDT Acute pyelonephritis URINE CULTURE Routine 02/04/2022 1:39 PM EDT Acute pyelonephritis documented in this encounter Results * Urine culture (02/04/2022 1:39 PM EDT) Specimen Description See Comment See Comment See Comment See Comment [facility] Comment: URINE CLEAN CATCH/MIDSTREAM NONE >100,000 COL/ML ??GROUP B BETA HEMOLYTIC STREPTOCOCCI ISOLATED. SUSCEPTIBILITY TESTING NOT ROUTINELY PERFORMED ON THIS ISOLATE. FINAL 02/05/2022 Testing performed or reported by [facility], a Service of [facility], [facility] [place] [address] Kaushal Amin MD, Corn Detasseler Machine Operator [facility]# [id number] Urine (Urine, Clean Catch) 02/04/2022 1:39 PM EDT 02/04/2022 1:40 PM EDT Napoleon Schulz MD LAB URINE ORDERABLES Final Re sult [facility] * (ABNORMAL) Urinalysis with microscopic (02/04/2022 1:39 PM EDT) Appearance LIGHT YELLOW [facility] Comment:CLEAR Specific Brenton 1.018 (1.002-1. 030) [facility] pH Urine 6.0 (5.0-8.0) [facility] Albumin, Urine TRACE(A) (NEG) [facility] Glucose, Ur NEGATIVE (NEG) [facility] Ketones, Urine NEGATIVE (NEG) [facility] Bilirubin Urine NEGATIVE (NEG) [facility] Hemoglobin Presence in Urine NEGATIVE (NEG) [facility] Nitrite, Urine NEGATIVE (NEG) [facility] Leukocyte Esterase Urine 3+(A) (NEG) [facility] Urobilinogen Urine NORMAL (NORM) MG/DL [facility] WBC, Urine 11(H) (0-5) /HPF [facility] RBC, Urine 2 (0-3) /HPF [facility] Bacteria SLIGHT(A) (NEG) HPF [facility] Squamous Epithelial, Urine 3 (0-8) /HPF [facility] Comment: Testing performed or reported by [facility], a Service of [facility], [address] [place] [id number] Alex León MD, Corn Detasseler Machine Operator [facility]# [id number] Urine (Urine, Clean Catch) 02/04/2022 1:39 PM EDT 02/04/2022 1:40 PM EDT us Napoleon Schulz MD LAB URINE ORDERABLES Final Re sult [facility] documented in this encounter Visit Diagnoses Diagnosis Acute pyelonephritis- Primary documented in this encounter Care Teams Critical Care Nurse Specialist Relationship Specialty Start Date End Date Michael Shepard MD [address] [address] PCP - General 08/24/20 documented as of this encounter
--- OUTSIDE RECORDS SUMMARY | 2024-11-03 18:58 | XMS_ITS ---
Author Organization [facility] Address [address] [place] [address] Care Team Providers Care Manager Metrology Name Role Phone Michael Shepard Primary Care Provider Rinku Payan [phone] REASON FOR VISIT cx 04/08/24 appt Encounters Encounter Location Date [facility] [address] [place] [phone] 04/06/2024 Rinku Payan Plan Of Treatment No Information Progress Notes * Reinier DAVISONineDOB:[birth year] (88 yo F)Acc No.[id number]:04/06/2024 Patient:?Reinier Davisonsabi raya :1935???Age:88 Y???Sex:Female Address:[address] [place] [address], [address] * true * Date:? Generated for Printi lexus/Vinicius/eTransmitting on:?11/03/2024 06:57 PM EDT
--- OUTSIDE RECORDS SUMMARY | 2024-11-03 18:58 | XMS_ITS | Clinical Summary ---
Author Organization [facility] Address [address] [facility] [address] [place] [address] Phone Care Team Providers Care Photographers' Model Name Role Phone Michael Shepard MD Primary [...] stage 2 (mild),Anemia in chronic kidney disease 73995 Units IJ Every 14 days 05/31/2021 Active Epoetin Mickey-epbx solution 30,000 UnitsIndications:Anemia in chronic kidney disease 30587 Units IJ Once 08/08/2021 Active Active Problems Problem Noted Date Diagnosed Date Stage 3a chronic kidney disease 07/06/2024 Anemia 12/12/2021 Arthritis 12/12/2021 Atherosclerosis of qagan tayagungin arteries of the extrem ities 12/12/2021 Congestive [...] 10/25/2024 Office Communication [facility] [address] [facility] [address] [place] [phone] Shonna Pavon ARNP 09/29/2024 Office Communication [facility]. [address] [facility] [address] [place] [phone] Nereyda Dinh 08/12/2024 Orders Only [facility] [address] [place] [phone] Lesly Moreno, KATINA Anemia in chronic kidney disease; Chronic kidney disease, stage 2 (mild) 08/12/2024 Orders Only [facility] [address] [place] [phone] Shonna Pavon ARNP Chronic kidney disease, stage [...] Office Visit [facility] P.CTriny [address] [phone] Shonna Pavon ARNP [address] [address] Health Maintenance Due Date Last Done Comments [...] TIBC 210(L) 250 - 450 ug/dL [facility] UIBC 157 118 - 369 ug/dL [facility] Iron 53 27 - 139 ug/dL [facility] Iron Saturation (TSat) 25 15 - 55 % [facility] Blood (Blood, Venous) 10/20/2024 10/20/2024 Comment:Blood, Venou Shonna [facility] LAB BLOOD ORDERABLES Final Result Performing Organization Address City/[facility]/ZIP Co de Phone Number [facility] [address] [place] [address] * (ABNORMAL) CBC (10/20/2024 12:00 AM EST) WBC 7.2 3.4 - 10.8 x10E3/uL [facility] RBC 2.79(L) 3.77 - 5.28 x10E6/uL [facility] Hemoglobin 9.1(L) 11.1 - 15.9 g/dL [facility] Hematocrit 27.8(L) 34.0 - 46.6 % [facility] MCV 100(H) 79 - 97 fL [facility] MCH 32.6 26.6 - 33.0 pg [facility] MCHC 32.7 31.5 - 35.7 g/dL [facility] RDW 12.7 11.7 - 15.4 % [facility] Platelets 195 150 - 450 x10E3/uL [facility] Blood (Blood, Venous) 10/20/2024 10/20/2024 Comment:Blood, Venou Shonna [facility] LAB BLOOD ORDERABLES Final Result [facility] [address] [place] [address] * (ABNORMAL) Ferritin (10/20/2024 12:00 AM EST) Ferritin 792(H) 15 - 150 ng/mL [facility] Blood (Blood, Venous) 10/20/2024 10/20/2024 Comment:Blood, Venou Shonna [facility] LAB BLOOD ORDERABLES Final Result [facility] [address] [place] [address] from Last 3 Months Insurance [facility] Care Teams Photographers' Model Relationship Specialty Start Date End Date Michael Shepard MD [address] [address] PCP - General 08/24/20
--- OUTSIDE RECORDS SUMMARY | 2024-11-03 18:58 | XMS_ITS ---
Author Organization [facility] [place] Address [address] [place] [address] Care Team Providers Care Assembler Type Bar And Segment Name Role Phone Michael Shepard Primary Care Provider [phone] Rinku Payan [phone] REASON FOR VISIT Painful thick toenails which are aggrevated by shoes and causes difficulty standing/walking Medications Medication SIG (Take, Route, Frequency, Duration) Notes Start Date End Date Status Nitro-Bid 2 % as directed Transder mal apply bid to both feet for 30 days Active Encounters Encounter Location Date Provider Diagnosis [facility] [address] [place] [phone] 04/08/2024 Rinku Payan Tinea unguium B35.1 ; Pain in left foot M79.672 ; Pain in right foot M79.671 ; Pain in right toe(s) M79.674 ; Pain in left toe(s) M79.675 ; Unspecified atherosclerosis of [place] arteries of extremities, bilateral legs I70.203 ; [...] (ICD-10 - M79.675) 04/08/2024 Unspecified atherosclerosis of [place] arteries of extremities, bilateral legs (ICD-10 - [...] or Cutting o f Benign Hyperkeratotic Lesion(s) 14650 ( >4 Lesions) - The Benign hyperkeratotic [...] as necessary. Patient chooses, no pharmaceutical tx (58957) Nail Reduction Nail Reduction Trimming of dyst rophic nails performed to reduce/remove overall nail length and girth, by manual and electrical means with use of a nail nipper and/or dremel, to more viable healthy nail plate or bed tissue 6-10 (G0127) Progress Notes * Reinier DAVISONineDOB:[birth year] (89 yo F)Acc No.[id number]:04/08/2024 Progress Note Patient:?Марина DAVISON Provider:?Rinku Payan DPM :1935???Age:88 Y???Sex:Female D ate:04/08/2024 [facility] [place] Pcp:Michael Shepard Subjective: * Chief Complaints: * [...] in left toe(s) - M79.675???6.?Unspecified atherosclerosis of [place] arteries of extremities, bilateral legs - I70.203???7.?Primary [...] as necessary. Patient chooses, no pharmaceutical tx (79264).?Keratoma Treatment:?Parring or Cutting of Benign Hyperkeratotic Lesion(s)?71998 ( >4 Lesions) - The Benign hyperkeratotic [...] or bed tissue 6-10 (G0127).? * Procedure Codes:?07521 JOSEP LIU NAIL, 1-5, Modifiers: XS , 50946 TRIM SKIN LESIONS, OVER 4, Modifiers: Q8 [...] Date:? 024 Generated for Rambo alberts/Vinicius/Jose R on:?11/03/2024 06:58 PM EDT History and Physical Notes * [...]
--- OUTSIDE RECORDS SUMMARY | 2024-11-03 18:58 | XMS_ITS | Clinical Summary ---
Author Organization [facility] Address [address] [place] [address] Care Team Providers Care Director Safety Name Role Phone Michael Shepard MD Primary [...] age to complete this topic Care Teams Director Safety Relationship Specialty Start Date End Date Michael Shepard MD [address] [place] [address] Dr Carpio [address] [place] [address] [place] [address] PCP - General Internal Medicine 10/26/20
--- OUTSIDE RECORDS SUMMARY | 2024-11-03 18:58 | XMS_ITS | Encounter Summary ---
Author Organization [facility] Address [address] [facility] [address] [place] [address] Phone Care Team Providers Care Dice Spotter Name Role Phone Michael Shepard MD Primary Care Provider + Encounter Details Date Type Department Care Team (Late Contact Info) Description 03/07/2021 Orders Only [facility] [address] [facility] [address] [place] [phone] Kamini Uribe [place] Anemia in chronic kidney [...] Visit [facility] [address] [facility] [address] [place] [phone] Shonna Pavon ARNP [address] [facility] [address] [place] [address] Scheduled Orders Name Type Priority Associated Diagnoses [...] Primary documented in this encounter Care Teams Dice Spotter Relationship Specialty Start Date End Date Michael Shepadr MD [facility] [address] [place] [address], [facility] [address] [place] [address] PCP - General 08/24/20 documented as of this encounter
--- OUTSIDE RECORDS SUMMARY | 2024-11-03 18:58 | XMS_ITS | Encounter Summary ---
Author Organization [facility] Address [address] [address] Phone Care Team Providers Care Binder And Wrapper Packer Name Role Phone Michael Shepard MD Primary Care Provider + Encounter Details Date Type Department Care Team (Late st Contact Info) Description 10/25/2024 Office Communication [facility] [address] [phone] Shonna Pavon ARNP [address] [address] Social History Tobacco Use Types [...] Visit [facility] [address] [phone] Shonna Pavon ARNP [address] [address] documented as of this encounter Visit Diagnoses Not on filedocumented in this encounter Care Teams Binder And Wrapper Packer Relationship Specialty Start Date End Date Michael Shepard MD [address] [facility] [address] [place] [address] PCP - General 08/24/20 documented as of this encounter
--- OUTSIDE RECORDS SUMMARY | 2024-11-03 18:58 | XMS_ITS | Encounter Summary ---
Author Organization [facility] Address [address] [facility] [address] [place] [address] Phone Care Team Providers Care Food Safety Officer Name Role Phone Michael Shepard MD Primary Care Provider + Encounter Details Date Type Department Care Team (Late st Contact Info) Description 09/29/2024 Office Communication [facility] [address] [facility] [address] [place] [phone] Nereyda Dinh [address] [place] [phone] Social History Tobacco Use Types Packs/Day Years [...] along with lab req to F : [phone]. I spoke to patient's daughter today and let her know that [facility] should be reaching out to her once they receive the form to set up an appt date and time. documented in this encounter Plan of Treatment Upcoming Encounters Date Type Department Care Team (Late st Contact Info) Description 01/03/2025 3:30 PM EDT Office Visit [facility] [address] [phone] Shonna Pavon ARNP [address] [address] documented as of this encounter Visit Diagnoses Not on filedocumented in this encounter Care Teams Food Safety Officer Relationship Specialty Start Date End Date Michael Shepard MD [address], [facility] [address] [place] [address] PCP - General 08/24/20 documented as of this encounter
--- OUTSIDE RECORDS SUMMARY | 2024-11-03 18:58 | XMS_ITS ---
Author Organization [facility] Address [address] [place] [address] Care Team Providers Care Financial Planning Advisor Name Role Phone Michael Shepard Primary Care Provider [phone] Rinku Payan [phone] Allergies Allergen (clinical drug ingredient) Drug/Non Drug Allergy documented on EMR Reaction Allergy Type Onset Date Status acetaminophen / codeine Acetaminophen-Codeine vomiting Drug Allergy Active amoxicillin Amoxicillin Unknown Drug Allergy Act joey Bactrim Unknown Drug Allergy Active Biaxin Unknown [...] 01/08/2024 Encounters Encounter Location Date Provider Diagnosis [facility] [address] [address] 01/08/2024 Rinku Payan Tinea unguium B35.1 ; Pain in left foot M79.672 ; Pain in right foot M79.671 ; Pain in right toe(s) M79.674 ; Pain in left toe(s) M79.675 ; Unspecified atherosclerosis of [place] arteries of extremities, bilateral legs I70.203 ; [...] (ICD-10 - M79.675) 01/08/2024 Unspecified atherosclerosis of [place] arteries of extremities, bilateral legs (ICD-10 - [...] or Cutting o f Benign Hyperkeratotic Lesion(s) 45468 ( >4 Lesions) - The Benign hyperkeratotic [...] as necessary. Patient chooses, no pharmaceutical tx (32375) Nail Reduction Nail Reduction Trimming of dyst rophic nails performed to reduce/remove overall nail length and girth, by manual and electrical means with use of a nail nipper and/or dremel, to more viable healthy nail plate or bed tissue 6-10 (G0127) Progress Notes * Reinier DAVISONineDOB:[birth year] (88 yo F)Acc No.[id number]:01/08/2024 Progress Note Patient:?Марина Davison Provider:?Rinku Payan DPM :[id number]???Age:88 Y???Sex:Female D ate:01/08/2024 Address:[address] [place] [address] Pcp:Michael Shepard Subjective: * Chief Complaints: * [...] Diagno stic Procedure:?[place] [facility] [place]/18-09/22/[place]. [place] [facility] - Heart Issues Rehab few days 10/2020,11[place] [place]gall[place]uues -Heart Attack 11/22/20 * Family [...] in left toe(s) - M79.675?6.?Unspecified atherosclerosis of [place] arteries of extremities, bilateral legs - I70.203?7.?Primary [...] as necessary. Patient chooses, no pharmaceutical tx (84162).?Keratoma Treatment:?Parring or Cutting of Benign Hyperkeratotic Lesion(s)?63854 ( >4 Lesions) - The Benign hyperkeratotic [...] or bed tissue 6-10 (G0127).? * Procedure Codes:?55650 DEBRI DE NAIL, 1-5, Modifiers: XS 39580 TRIM SKIN LESIONS, OVER 4, Modifiers: Q8 G0127 TRIMMING DYSTROPHIC NAILS ANY #, Modifiers: Q8 * Follow Up:?3 Months * Images: * Sign off status: Completed true * Provider:?Rinku Payan DPM Date:? 024 Generated for Rambo alberts/Vinicius/eTransmitting on:?11/03/2024 06:57 PM EDT History and Physical Notes * [...]
--- OUTSIDE RECORDS SUMMARY | 2024-11-03 18:58 | XMS_ITS | Clinical Summary ---
Author Organization [facility] Address [address] [place] [address] Care Team Providers Care Continuous Pickling Line Pickler Helper Name Role Phone Pcp, No Primary Care [...] age to complete this topic Care Teams Continuous Pickling Line Pickler Helper Relationship Specialty Start Date End Date Pcp, No PCP - General General Medicine 11/18/22
== END 2024-11-03 15:51 | disposition home or self-care (01) ==
LOC: HO.HPS 15:20
PROVIDERS: PCP Internal Medicine; Visit Provider Internal Medicine
DX: J45.909 Unspecified asthma, uncomplicated (principal); I27.20 Pulmonary hypertension, unspecified
CPT/HCPCS: 99213

== ENCOUNTER 2024-11-17 14:47 | Outpatient (AMB) | payer BC, SELFPAY ==
--- NOTE | 2024-11-17 15:18 | A.OFFPC_ITS ---
Vital Signs 11/17/24 15:20 Height 5 ft 5 in Weight 156 lb 8 oz BMI 26.0 BP 120/70 Blood Pressure Location Lt brachial Position Sitting Temp 97.1 F Temp Source Temporal Artery Scan Intake Visit Reasons: 4 month f/u Intake Note: Patient is here to follow up on HTN, COPD, Dementia, CHF, LDDD. Rubber Tubing Backer Required: No Hunting Sales Leader: Present Accompanied by: Daughter Allergies meperidine [From Demerol] Allergy (Severe, Verified 11/18/24 08:35) Nausea and Vomiting amoxicillin [AMOXICILLIN] Allergy (Intermediate, Verified 11/18/24 08:35) Rash cephalexin Allergy (Intermediate, Verified 11/18/24 08:35) Itching erythromycin base Allergy (Intermediate, Verified 11/18/24 08:35) Itching meloxicam Allergy (Intermediate, Verified 11/18/24 08:35) Abdominal Pain nitrofurantoin [From Macrobid] Allergy (Intermediate, Verified 11/18/24 08:35) Rash Penicillins Allergy (Intermediate, Verified 11/18/24 08:35) Rash Sulfa (Sulfonamide Antibiotics) [SULFA(SULFONAMIDE ANTIBIOTICS)] Allergy (Intermediate, Verified 11/18/24 08:35) Rash tramadol Allergy (Intermediate, Verified 11/18/24 08:35) Nausea and Vomiting codeine [CODEINE] Adverse Reaction (Intermediate, Verified 11/18/24 08:35) Nausea Medication List - Last Reconciled 11/18/24 by Michael Shepard MD acetaminophen (Tylenol Extra Strength) 1,000 mg PO TID albuterol sulfate 90 mcg/actuation (ProAir HFA) 2 puffs inhalation Q6H PRN amitriptyline 10 mg PO BEDTIME aspirin 81 mg PO DAILY atorvastatin 80 mg PO DAILY blood pressure monitor As directed calcium carbonate-vitamin D3 600 mg-5 mcg (200 unit) 1 tab PO BEDTIME ceramides 1,3,6-II (CeraVe topical cream) 1 appl topical 5XD PRN cholecalciferol (vitamin D3) 25 mcg PO DAILY cyanocobalamin (vitamin B-12) 1,000 mcg PO DAILY diphenhydramine HCl (Benadryl) 25 mg PO DAILY PRN donepezil 5 mg PO DAILY doxycycline hyclate 100 mg PO .prn epoetin kamilah-epbx (Retacrit) units subcut ONCE PRN ferrous sulfate 325 mg PO Q OTHER DAY fexofenadine 180 mg PO BEDTIME fluticasone propionate 220 mcg/actuation 2 puffs inhalation BID 30 days gafidacv-ukveu-jwzlk-CF borate 750 mg-100 mg- 1.65 mg-108 mg ([facility]) 1 tab PO BID lidocaine 4% 1 patch topical DAILY PRN metoprolol succinate ER 50 mg PO DAILY pyridoxine (vitamin B6) 100 mg PO DAILY vit C,G-Pc-fajba-lutein-zeaxan 250-90-40-1 mg (PreserVision AREDS-2) 1 tab PO BID vitamin E succinate 400 units PO DAILY Tobacco use date assessed: 11/17/24 Fall risk assessment: No Falls in past year Last assessed Fall Risk: 11/17/24 Dental Screening Dental Screen Date: 11/17/24 Did you have a dental visit in the last 12 months?: Yes Did you have a dental problem in the last 6 months where you did not have access to dental care?: No Was dental information given to patient?: Patient has dentist [facility] Medical History PONV (postoperative nausea and vomiting) COPD (chronic obstructive pulmonary disease) CHF (congestive heart failure) Macular degeneration Dementia HTN (hypertension) Breast cancer Atherosclerotic cardiovascular disease Coronary artery disease Anemia Aortic stenosis, severe Primary osteoarthritis involving multiple joints Osteoporosis Benign essential HTN Asthma Allergic rhinitis Surgical History History of acute cholecystitis S/P TAVR (transcatheter aortic valve replacement) S/P cardiac catheterization History of hand surgery History of heart artery stent History of laminectomy History of kyphoplasty History of cataract surgery History of D&C Family History Father Hypertension Mother Thyroid cancer Sister Breast cancer Social History Household Members: None Household Members Other:: assisted living [facility] Housing: Assisted Living Facility Housing Other:: [facility] Are you a primary client care coordinator to a significant other at home: No Do you presently have visiting nurse or other home services: No Alcohol intake: current Alcohol intake frequency: holidays/special occasions only Alcohol type: beer and wine Patient Tobacco Use Status: Former Tobacco user Tobacco use type: Cigarette Years Smoked: 5 e-Cigarette/Vaping Use: Never Used Second Hand Smoke Exposure: Yes Advance Directives Date on File: 02/06/21 service: No Current occupational status: retired Cognitive needs: Yes (walker/cane) Hearing needs: Yes (hearing aide) Vision needs: Yes (glasses) Questionnaire PHQ-9 Over the last 2 weeks, how often have you been bothered by any of the following problems? 1. Little interest or pleasure in doing things: not at all 2. Feeling down, depressed, or hopeless: not at all 3. Trouble falling or staying asleep, or sleeping too much: not at all 4. Feeling tired or having little energy: not at all 5. Poor appetite or overeating: not at all 6. Feeling bad about yourself - or that you are a failure or have let yourself or your family down: not at all 7. Trouble concentrating on things, such as reading the newspaper or watching television: not at all 8. Moving or speaking so slowly that other people could have noticed. Or the opposite - being so fidgety or restless that you have been moving around a lot more than usual: not at all 9. Thoughts that you would be better off or of hurting yourself in some way: not at all Total score: 0 Depression Screening Interpretation: Negative Depression Screening Done: Yes Source: Developed by Drs. Hossein Elizalde, Olinda Clark, Zak Lechuga and colleagues, with an educational yemi from [employer]. Thrive Questionnaire Date Thrive assessed: 11/17/24 I am a: Patient What is your living situation today?: I have a steady place to live Within the past 12 months, did the food you bought not last and you didn't have the money to get more?: Never true Within the past 12 months, did you worry whether your food would run out before you got money to buy more?: Never true Do you have trouble paying for medicines?: No Do you have trouble getting transportation to medical appointments?: No Do you have trouble paying your heating and electricity bill?: No Do you have trouble taking care of your child, family member or friend?: No Do you have trouble with day-to-day activities such as bathing, preparing meals, shopping, managing finances, etc.?: No Are you currently unemployed and looking for a job?: No Are you interested in more education?: No Please select the resources that you would like help with: None Currently or been in a relationship where the following occur: No concerns reported THRIVE Score: 0 AUDIT C Alcohol Use Questionnaire (AUDIT-C) 2. How many drinks containing alcohol do you have on a typical day when you are drinking?: 1 or 2 3. How often do you have six or more drinks on one occasion?: Never Total Score: 0 BRUNO-7 AMB Questionnaire BRUNO-7 Date BRUNO - 7 assessed: 11/17/24 Feeling nervous, anxious, or on edge: 0 = Not at all Not being able to stop or control worryin = Not at all Worrying too much about different things: 0 = Not at all Trouble relaxin = Not at all Being so restless that it is hard to sit still: 0 = Not at all Becoming easily annoyed or irritable: 0 = Not at all Feeling afraid as if something awful might happen: 0 = Not at all Total BRUNO-7 score (0-4 normal; 5-9 mild; 10-14 moderate; 15-21 severe): 0 Source: Developed by Drs. Hossein Elizalde, Olinda Clark, Zak Lechuga and colleagues, with an educational yemi from [employer]. Physical exam (Primary Care) Vital Signs: Last Vital Signs Temp 97.1 F 11/17/24 15:20 BP 120/70 11/17/24 15:20 Care Plan Goal for BP management: BP in range BMI result Body Mass Index 26.0 Tobacco/Smoking Status: Tobacco use Status Tobacco use date assessed 11/17/24 11/17/24 15:28 Patient Tobacco Use Status Former Tobacco user 11/17/24 15:28 Tobacco use type Cigarette 11/17/24 15:28 e-Cigarette/Vaping Use Never Used 11/17/24 15:28 PHQ-9: PHQ-9 Score PHQ-9: Total score 0 11/17/24 15:28 Depression Screening Interpretation: Negative Thrive Assessment: Date of Thrive Assessment Date Thrive assessed 11/17/24 11/17/24 15:28 Currently or been in a relationship where the following occur: No concerns reported Advance Care Planning discussion: Exists, not on file Date of discussion: 11/17/24 Who was present: Patient, daughter Forms completed: Health Care Proxy and MOLST Time spent: 1-15 minutes, not on file Coding Level of Care Code Est Pt Level 4 (70687) Complex EM visit Add On G2211 Diagnoses Bursitis of right shoulder M75.51 Dementia F03.90 Additional Codes Vital Signs *Quality* - Advance Care Planning discussion: Exists, not on file ([id number]) Vital Signs *Quality* - Time spent: 1-15 minutes, not on file ([id number]) Assessment & Plan Assessment & Plan (1) Bursitis of right shoulder: Code(s): M75.51 - Bursitis of right shoulder Category: Medical Plan: Patient now has a stimulator. This was applied at the pain clinic. She understands the function of the device. Still unable to lift shoulders over the arm level. (2) Dementia: Code(s): F03.90 - Unspecified dementia, unspecified severity, without behavioral disturbance, psychotic disturbance, mood disturbance, and anxiety Category: Medical Plan: Patient sees a neurologist. SHe has started taking a new medication Plan History of Present Illness The patient is an 89-year-old female presenting with follow-up concerning her memory impairment and right shoulder injury. She is under the management of a neurologist for memory impairment, prescribed a medication taken at night. Memory concerns have been ongoing for three years, and while medication effectiveness is reported as slow, there is a belief in some improvement. A follow-up was postponed due to a recent COVID-19 infection. Regarding the right shoulder injury, the patient experiences pain radiating to the arm, managed with a spinal cord stimulator. The stimulator, noted for providing up to 12 hours of relief, appears beneficial, though improvements are gradual. Social History - Resides in an assisted living facility at [facility] in [facility] where meals are provided, although the patient participates minimally, particularly in communal meals. - Noted decreased activity level with a preference for sleeping which aligns with her declining mobility. Review of Systems - Musculoskeletal: Reports right shoulder pain radiating to the arm, impacting mobility and comfort. - General: Reports fatigue and increased tiredness. - Neurological: Reports memory impairment managed with medication. Physical Exam General: Appearance normal, both eyes and all related structures Nutritional Appearance: Well nourished Orientation/consciousness: Patient oriented x3 Limitations: Right shoulder injured, pain radiates to arm Head: Normal to inspection Neck: Normal visual inspection Chest: Normal palpation of entire chest wall Respiratory: Normal respiratory effort Neurology: Patient oriented x3, follow-up with neurologist needed for memory issues Results Plan The patient will continue neurologist-led management for memory impairment, ensuring follow-up that was delayed due to COVID-19 is promptly rescheduled. Regular nightly medication is to be maintained for gradual symptom management. For her right shoulder injury, ongoing reliance on a spinal cord stimulator provides pain relief, though reportedly limited, warranting continuous monitoring and adjustment of the device's programming. Reassessment over the coming months will determine potential need for additional neurologic insights or adjustments. Patient was informed and verbally consented to the use of an ambient scribe for clinic note documentation during this visit. Discussion Notes During the discussion, we emphasized the importance of keeping the upcoming neurologist appointments for evaluation of the memory impairment and potentially adjusting medication dosages as necessary. For the right shoulder injury, reliance on the spinal cord stimulator of calibrated programming was reviewed, focusing on adjustments to maximize the 12-hour relief span. We touched upon possible referrals or further interventions should there be inadequate improvement in memory or pain relief. Agreed on scheduling a follow-up in three months to reassess overall symptoms and their progression. I highlighted the need for attending meals provided at the [facility] center to combat fatigue. Patient Instructions - Reschedule the missed neurologist follow-up appointment. - Continue taking the prescribed memory medication at night as directed. - Regularly monitor and program the spinal cord stimulator as needed for pain management. - Attend daily provided meals to improve energy levels. - Return for scheduled follow-up in three months or sooner if symptoms worsen. - Inquire immediately if the stimulator's programming seems ineffective.
[2024-11-17 15:20] VITALS: BP 120/70; TEMP 36.2; BMI 26.0
== END 2024-11-17 15:43 | disposition home or self-care (01) ==
LOC: HO.HMCH 14:47
PROVIDERS: PCP Internal Medicine; Visit Provider Internal Medicine
DX: M75.51 Bursitis of right shoulder (principal); F03.90 Unspecified dementia, unspecified severity, without behavioral disturbance, psychotic disturbance, mood disturbance, and anxiety; Z00.00 Encounter for general adult medical examination without abnormal findings

== ENCOUNTER → 2024-11-17 14:47 | Outpatient (BNVA) | payer BC, SELFPAY | PROVIDERS: PCP Internal Medicine; Visit Provider Internal Medicine ==

== ENCOUNTER 2025-01-30 12:05 | Outpatient (AMB) | payer BC, SELFPAY ==
--- NOTE | 2025-01-30 12:09 | A.OFFVIS_ITS ---
Vital Signs 01/30/25 12:11 Height 5 ft 5 in Weight 156 lb BMI 26.0 BP 123/60 Blood Pressure Location Lt brachial Position Sitting Respiration 16 Pulse 81 Pulse Source Pulse Oximeter Pulse Oximetry (%) 97 Oxygen Delivery Method Room Air Intake Visit Reasons: FOLLOW UP Intake Note: Pt meeting with Radha vaz to adjust setting Communication Consultant Required: No Allergies meperidine [From Demerol] Allergy (Severe, Verified 01/30/25 12:12) Nausea and Vomiting amoxicillin [AMOXICILLIN] Allergy (Intermediate, Verified 01/30/25 12:12) Rash cephalexin Allergy (Intermediate, Verified 01/30/25 12:12) Itching erythromycin base Allergy (Intermediate, Verified 01/30/25 12:12) Itching meloxicam Allergy (Intermediate, Verified 01/30/25 12:12) Abdominal Pain nitrofurantoin [From Macrobid] Allergy (Intermediate, Verified 01/30/25 12:12) Rash Penicillins Allergy (Intermediate, Verified 01/30/25 12:12) Rash Sulfa (Sulfonamide Antibiotics) [SULFA(SULFONAMIDE ANTIBIOTICS)] Allergy (Intermediate, Verified 01/30/25 12:12) Rash tramadol Allergy (Intermediate, Verified 01/30/25 12:12) Nausea and Vomiting codeine [CODEINE] Adverse Reaction (Intermediate, Verified 01/30/25 12:12) Nausea Medication List - Last Reconciled 01/30/25 by Erin Bowie LPN acetaminophen (Tylenol Extra Strength) 1,000 mg PO TID albuterol sulfate 90 mcg/actuation (ProAir HFA) 2 puffs inhalation Q6H PRN amitriptyline 10 mg PO BEDTIME aspirin 81 mg PO DAILY atorvastatin 80 mg PO DAILY blood pressure monitor As directed calcium carbonate-vitamin D3 600 mg-5 mcg (200 unit) 1 tab PO BEDTIME ceramides 1,3,6-II (CeraVe topical cream) 1 appl topical 5XD PRN cholecalciferol (vitamin D3) 25 mcg PO DAILY cyanocobalamin (vitamin B-12) 1,000 mcg PO DAILY diphenhydramine HCl (Benadryl) 25 mg PO DAILY PRN donepezil 5 mg PO DAILY doxycycline hyclate 100 mg PO .prn epoetin kamilah-epbx (Retacrit) units subcut ONCE PRN ferrous sulfate 325 mg PO Q OTHER DAY fexofenadine 180 mg PO BEDTIME fluticasone propionate 220 mcg/actuation 2 puffs inhalation BID 30 days inplgnlj-tfdxk-fuyxg-CF borate 750 mg-100 mg- 1.65 mg-108 mg ([facility] [employer]) 1 tab PO BID lidocaine 4% 1 patch topical DAILY PRN metoprolol succinate ER 50 mg PO DAILY pyridoxine (vitamin B6) 100 mg PO DAILY vit C,G-Mh-rjokb-lutein-zeaxan 250-90-40-1 mg (PreserVision AREDS-2) 1 tab PO BID vitamin E succinate 400 units PO DAILY HPI HPI FOLLOW UP: Details: History of Present Illness The patient is an 89-year-old female presenting with right shoulder pain. Her pain management includes the use of a peripheral nerve stimulator implanted. Recently, the device's remote controls needed reprogramming due to suboptimal coverage, and the reprogramming process showed marked improvement in distinguishing between being on and off. Currently, her pain relief with the stimulator is about 40-50%. The patient wishes for further improvement, aiming for a functional taoist of 60-70% pain relief. Discussions have taken place concerning the adjustment of her stimulator's fit, with changes to the holding pouch being implemented to better secure it. She also continues to take acetaminophen two to three times daily for additional pain control. Pain Description - Onset and timing: Chronic, present for four years since the peripheral nerve stimulator implant - Quality and character: Persistent - Primary location: Right shoulder - Areas of radiation: Not specified - Exacerbating factors: Absence or malfunction of the nerve stimulator, suboptimal programming - Relieving factors: Nerve stimulator use, acetaminophen - Interference with functions: Requires acetaminophen multiple times a day for daily function Physical Exam - Incisions well healed Pain Management - Affect: Impact on daily function is notable due to persistent pain - Analgesia: Current medication includes acetaminophen two to three times daily. Pain relief with stimulator is at 40-50%, with a desired improvement to 60-70% - Adverse Effects: None reported for current medications - Activities of Daily Living: Right shoulder pain affects comfort and daily activities - Aberrant Drug Related Behaviors: None reported [facility] Medical History PONV (postoperative nausea and vomiting) COPD (chronic obstructive pulmonary disease) CHF (congestive heart failure) Macular degeneration Dementia HTN (hypertension) Breast cancer Atherosclerotic cardiovascular disease Coronary artery disease Anemia Aortic stenosis, severe Primary osteoarthritis involving multiple joints Osteoporosis Benign essential HTN Asthma Allergic rhinitis Surgical History History of acute cholecystitis S/P TAVR (transcatheter aortic valve replacement) S/P cardiac catheterization History of hand surgery History of heart artery stent History of laminectomy History of kyphoplasty History of cataract surgery History of D&C Family History Father Hypertension Mother Thyroid cancer Sister Breast cancer Social History Household Members: None Household Members Other:: assisted living [facility] Are you a primary janitor caretaker to a significant other at home: No Do you presently have visiting nurse or other home services: No Alcohol intake: current Alcohol intake frequency: holidays/special occasions only Alcohol type: beer and wine Patient Tobacco Use Status: Former Tobacco user Tobacco use type: Cigarette Years Smoked: 5 e-Cigarette/Vaping Use: Never Used Second Hand Smoke Exposure: Yes Advance Directives Date on File: 02/06/21 service: No Current occupational status: retired Cognitive needs: Yes (walker/cane) Hearing needs: Yes (hearing aide) Vision needs: Yes (glasses) Physical Exam Vital Signs: Last Vital Signs Pulse 81 01/30/25 12:11 Resp 16 01/30/25 12:11 BP 123/60 01/30/25 12:11 Pulse Ox 97 01/30/25 12:11 Oxygen Delivery Method Room Air 01/30/25 12:11 BMI result Body Mass Index 26.0 Assessment & Plan Assessment & Plan (1) Chronic right shoulder pain: Code(s): M25.511 - Pain in right shoulder; G89.29 - Other chronic pain Category: Medical Plan Plan - Reprogramming of nerve stimulator settings for improved coverage of shoulder pain. - Exploration of new stimulator settings with a goal of achieving higher pain relief percentages. - Adjustments in the device's placement and pouch size for enhanced fitting. - Continued acetaminophen use for additional pain relief evaluation and monitoring. Patient was informed and verbally consented to the use of an ambient scribe for clinic note documentation during this visit. Discussion Notes I discussed with the patient the effectiveness of her current peripheral nerve stimulator for right shoulder pain. We evaluated how changes in programming and positioning can potentially improve her pain relief. We thoroughly reviewed the pros and cons of various adjustments, focusing on aiming for a higher percentage of pain relief. Alternatives such as usage of acetaminophen were assessed, and I provided anticipatory guidance regarding the management of her stimulator. The patient was advised about follow-up approaches to monitor for complications or alterations in relief and further programming adjustments. The patient was reminded of the importance of consistent device use and given instructions on device handling and alterations. Patient Instructions - Continue using the peripheral nerve stimulator as advised. - Take acetaminophen as needed for pain, but do not exceed the recommended dosage. - Be patient with the gradual reprogramming process of the stimulator. - Notify the clinic immediately if there's a sudden deterioration in function or pain relief. - Consider any lifestyle modifications discussed, including proper positioning of the stimulator for best results. - Attend follow-up appointments for ongoing assessment and reprogramming of the stimulator. Coding Level of Care Code Est Pt Level 3 (95741) Diagnoses Chronic right shoulder pain M25.511; G89.29
[2025-01-30 12:11] VITALS: BP 123/60; PULSE 81; RESP 16; O2SAT 97; BMI 26.0
--- OUTSIDE RECORDS SUMMARY | 2025-01-30 13:50 | XMS_ITS | Patient Health Record ---
[facility] [place] Address [address] [place] [address] Care Team Providers Care Shipwright Helper Name Role Phone Michael Shepard Primary Care Provider Rinku Payan [phone] Allergies Allergen (clinical drug ingredient) Drug/Non Drug [...] Allergy Active Penicillin Unknown Drug Allergy Active Reason For Referral No Information Medications Medication SIG (Take, Route, Frequency, Duration) Notes Start Date End Date Status Metoprolol Tartrate 25 MG 1 tablet Orall y Twice a day for 30 day(s) Active Lysine 1000 MG as directed Orally Active predniSONE 10 MG 1 tablet with food or milk Orally Once a day for 30 day(s) Not-Taking Flovent HFA Active hydroCHLOROthiazide 25 MG 1 tablet Orall y Once a day for 30 day(s) Not-Taking Diphenhydramine Allergy PRN Ac tive Metoprolol & Diet Manage Prod 50 MG as directed Orally Not-Taking Nitro-Bid 2 % as directed Transdermal apply bid to both feet for 30 days Active NIFEdipine ER Active Alendronate Sodium 70 MG 1 tablet 30 minutes before the first food, beverage or medicine of the day with plain water Orally for 30 day(s) Active Simvastatin 10 MG 1 tablet in the evening Orally Once a day for 30 day(s) Not-Taking Cefaclor 250 MG 1 capsule Orally every 8 hrs for 10 day(s) Not-Taking Acidophilus as directed Orally Not-Taking Calcium 600 MG 1 tablet with meals Orally Twice a day for 30 day(s) Active HYDROcodone-Acetaminophen Not-Taking Atorvastatin Calcium Active Prednisone 5 mg twice a week N ot-Taking Aspir-81 Active Cimetidine Not-Takin g Amitriptyline HCl 10 MG 1 tablet at bedtime Orally Once a day for 30 day(s) Active Lisinopril 5 MG 1 tablet Orally Once a day for 30 day(s) Not-Taking Cod Liver Oil Active Anastrozole 1 MG 1 tablet Orally Once a day Not-Taking Fexofenadine HCl 180 MG 1 tablet Swallow whole with water; do not take with fruit juices. Orally Once a day for 30 day(s) Active Chondroitin Sulfate 150 MG as directed Orally Not-Taking Iron Active LORazepam 0.5 MG 1 tablet at bedtime as needed Orally Once a day PRN Not-Taking PreserVision AREDS 2 Active Glucosamine 500 MG 1 capsule with a meal Orally Once a day for 30 day(s) Not-Taking Acetaminophen PRN Active Doxycycline Hyclate Active ProAir HFA 108 (90 Base) MCG/ACT 1 puff as needed Inhalation every 4 hrs Active Ocuvite as directed Orally Not-Taking Omeprazole 20 MG as directed Orally Active Ferrous Sulfate 325 (65 Fe) MG 1 tablet Orally Once a day for 30 day(s) Not-Taking Clindamycin HCl Not- Taking Albuterol Not-Taking Vitamin B6 Active Ciprofloxacin Not-Ta [place] Vitamin C Active Vitamin E 100 UNIT 1 capsule Orally Once a day for 30 day(s) Active Stool Softener Activ e Vitamin D & vit B6 , C w/ jarvis hips Active Vitamin B 12 & cod liver Activ e Plavix Not-Taking Immunizations Vaccine Route Administration Date Status Comme nts COVID-19 Moderna Vaccine Unknown 10/22/2020 Administere d 1st 10/01/2020 Social History Tobacco Use: Social History Observation [...] Are you an other tobacco user? No Problems Problem Type SNOMED Code ICD Code Onset Dates Problem Status W/U Status Risk Notes Problem Pain in right foot (953351997382379) Pain in right foot (M79.671) Active confirmed Problem Bilateral atherosclerosis of arteries of lower limbs (disorder) (62725365727802102 ) Unspecified atherosclerosis of quinault arteries of extremities, bilateral legs (I70.203) Active confirmed Problem Localized, primary osteoarthritis of the ankle and/or foot (759752581) Primary osteoarthritis, right ankle and foot (M19.071) Active confirmed Problem [id number] Raynauds disease without gangrene (I73.00) Active confirmed Encounters Encounter Location Date Provider Diagnosis [facility] [address] [place] [id number] 04/06/2024 Rinku Payan Plan Of Treatment Pending Test Test Name Order Date X ray : Foot, left 3V 08/15/2013 X ray : Foot, right 3V 08/15/2013 X ray : Foot, right 3V 08/04/2019 50890-YHGLCIM NAIL, 08-2808/15/2013 63810-CPIBFHR NAIL, 08-2811/03/2013 08275-COJJYFQ NAIL, 08-2801/12/2014 34174-GNSJQWJ NAIL, 08-2804/12/2014 64690-GUEIVIJ NAIL, 08-2807/13/2014 99596-XGNLUTN NAIL, 08-2810/16/2014 65554-BCTOPBH NAIL, 08-2801/17/2015 18643-DSAJVDM NAIL, 08-2807/02/2015 82208-CSSHVSI NAIL, 08-2809/26/2015 42239-PIFDBCD NAIL, 08-2812/26/2015 94512-FMGHHHB NAIL, 08-2804/05/2015 83927-ACFGUIA NAIL, -5 03/26/2016 52401-FAMJHXB NAIL, -5 06/25/2016 69276-GDUWIIJ NAIL, -10/01/2016 33579-ESSTNXQ NAIL, -03/26/2017 41220-XYQXLQA NAIL, -05/28/2017 56650-RPAHRGZ NAIL, -5 07/30/2017 38403-TCMNHRK NAIL, -10/01/2017 22746-QLVBTTO NAIL, -12/03/2017 82533-XGYSUKQ NAIL, -02/10/2018 90477-JVCGXKY NAIL, -05/05/2018 65773-GCVDLCW NAIL, -08/05/2018 22285-Hvwa Destruction, -05/05/2018 71627-Ztms Destruction, -14 03/26/2016 24023-Lvpp Destruction, -14 04/05/2015 30599-Rjti Destruction, -14 12/26/2015 45531-Uzbd Destruction, -09/26/2015 89784-Gwgj Destruction, -14 07/02/2015 89032-Rewm Destruction, -14 01/17/2015 31665-Vdpz Destruction, -14 10/16/2014 03727-Aebo Destruction, -07/13/2014 50053-Futn Destruction, -14 04/12/2014 33056-Nsee Destruction, -14 01/12/2014 73763-Jook Destruction, -14 12/30/2012 52456-Xzur Destruction, -02/02/2013 86954-Tqxi Destruction, -14 03/09/2013 44756-Ccyc Destruction, -08/05/2018 89322-Bevrfhzs Plate 07/13/2014 36279- Debride <25 sq cm 10/23/2017 65217-WWFY SKIN LESIONS, OVER 4 12/04/19 18 47454-ZSRN SKIN LESIONS, OVER 4 10/01/19 18 89004-THGP SKIN LESIONS, OVER 4 02/11/20 18 38290-DTFI SKIN LESIONS, OVER 4 08/05/20 18 85519-DGCX SKIN LESIONS, OVER 4 05/28/20 17 56158-CGEH SKIN LESIONS, OVER 4 07/30/20 17 04926-GOIB SKIN LESIONS, OVER 4 10/01/19 17 04485-TGVQ SKIN LESIONS, OVER 4 06/25/20 16 87831-TZAI SKIN LESIONS, OVER 4 01/02/20 17 21966-DGOO SKIN LESIONS, OVER 4 03/26/20 16 21153-SEQI SKIN LESIONS, OVER 4 03/26/20 17 96894-DUHZ SKIN LESIONS, OVER 4 11/05/19 19 64447-FUBK SKIN LESIONS, OVER 4 02/04/20 19 17221-JAIZ SKIN LESIONS, OVER 4 05/05/20 19 62523-OYPS SKIN LESIONS, OVER 4 08/04/20 19 18200-XDVQ SKIN LESIONS, OVER 4 11/03/19 20 31922-JVPD SKIN LESIONS, OVER 4 05/24/20 20 03997-GXVR SKIN LESIONS, OVER 4 09/03/19 21 79919-INHF SKIN LESIONS, OVER 4 12/20/19 21 82006-JDIC SKIN LESIONS, OVER 4 03/26/20 21 52641-UFFN SKIN LESIONS, OVER 4 06/13/20 21 53421-RGBI SKIN LESIONS, OVER 4 09/05/19 22 38820-NBVP SKIN LESIONS, OVER 4 12/06/19 22 17924-VWZZ SKIN LESIONS, OVER 4 05/05/20 18 46448-LLID SKIN LESIONS, 2 TO 4 07/02/20 15 64175-YSRP SKIN LESIONS, 2 TO 4 09/26/19 16 47482-BZUR SKIN LESIONS, 2 TO 4 12/26/19 16 33385-LYGI NAIL(S) 12/26/2015 25501-OGKR NAIL(S) 03/26/2016 60283-GMPC NAIL(S) 09/26/2015 50984-OTDX NAIL(S) 07/02/2015 31548-WULE NAIL(S) 01/01/2017 23517-ACXK NAIL(S) 06/25/2016 92620-DYRW NAIL(S) 10/01/2016 25953-JTDH NAIL(S) 07/30/2017 53434-OJPR NAIL(S) 05/28/2017 34240-XOCB NAIL(S) 03/26/2017 41768-MQPJ NAIL(S) 12/03/2017 77072-AQNE NAIL(S) 10/01/2017 E3735-HPLTKBWV DYSTROPHIC NAILS ANY # P5953-MALFKMNB DYSTROPHIC NAILS ANY # Q8827-ZRDJPWNN DYSTROPHIC NAILS ANY # T2696-KYVJNRWO DYSTROPHIC NAILS ANY # K6362-OITLSPAM DYSTROPHIC NAILS ANY # H8662-ZMWRJTVH DYSTROPHIC NAILS ANY # D5157-WJRENIEN DYSTROPHIC NAILS ANY # G6563-YWHSGGXF DYSTROPHIC NAILS ANY # H4629-FEYPWARO DYSTROPHIC NAILS ANY # V8577-JUURUVMB DYSTROPHIC NAILS ANY # I9558-INLDFEFJ DYSTROPHIC NAILS ANY # O7232-ALAPQCVY DYSTROPHIC NAILS ANY # I9757-CRQTECNF DYSTROPHIC NAILS ANY # E8070-MWZXFMVS DYSTROPHIC NAILS ANY # W3128-KOORKWYY DYSTROPHIC NAILS ANY # 91485-FLVFPIHZ OF HEMATOMA/FLUID 018 63519, J0702- Neuroma/Injection 09/15/19 14 Insurance Providers Payer Name Payer Address Payer Phone Subscriber Number Group Number Insured Name Patient Relationship to Insured Coverage Start Date Coverage End Date [facility] [address] [place] [address] [phone] [id number] [place] Beena Self - patient is the insured Medical (General) History Medical History History ICD Code anemia Arthritis headaches/migraines high blood pressure macular degeneration measles chicken pox COPD CAD ( Coronary Artery Disease) Congestive heart failure Aortic stenosis Kidney disease Fall Risk Shoulder pain Colitis Osteoporosis Osteopenia Hay fever Hearing loss CAD (Cholesterol) Shingles Surgical History Surgery Date(Month/Year) foot surgery 01/2012 finger surgery mole removed from back 01/09/2014 lower back syrgery 04/21/17 R breast cancer 08/2016 L hip surgery 2017 laminotomy 11/16/20 Nick Artery Stent/catheter 11/28/20 aortic valve replacement 01/31/21 Hospitalization History Reason Date(Month/Year) [facility]Heart [place] 11[place] [facility] [place] [facility] [place] [facility] [place] [facility] [place] Rehab few d ays 10/2020,11/2020 [facility] [place]. 8 Patient was admitted to [facility] [place]. -09/22/12
== END 2025-01-30 12:38 | disposition home or self-care (01) ==
LOC: HO.PMC 12:06
PROVIDERS: PCP Internal Medicine; Visit Provider Internal Medicine
DX: M25.511 Pain in right shoulder (principal); G89.29 Other chronic pain
CPT/HCPCS: 99213

== ENCOUNTER 2025-02-17 16:02 | Outpatient (AMB) | payer BC, SELFPAY ==
--- NOTE | 2025-02-17 16:07 | MHC.PC.OV ---
Vital Signs 02/17/25 16:09 Height 5 ft 5 in Weight 154 lb 1.65 oz BMI 25.6 BP 130/60 Blood Pressure Location Lt brachial Position Sitting Pulse 72 Pulse Source Pulse Oximeter Temp 97.1 F Temp Source Temporal Artery Scan Pulse Oximetry (%) 96 Oxygen Delivery Method Room Air Intake Visit Reasons: 3mth f/u Intake Note: Patient is here to follow up on CHF, Dementia, CAD. Pulley Worker Required: No Last Trimmer: Present Accompanied by: Daughter Allergies meperidine (From Demerol) Allergy (Severe, Verified 02/17/25 16:28) Nausea and Vomiting amoxicillin (AMOXICILLIN) Allergy (Intermediate, Verified 02/17/25 16:28) Rash cephalexin Allergy (Intermediate, Verified 02/17/25 16:28) Itching erythromycin base Allergy (Intermediate, Verified 02/17/25 16:28) Itching meloxicam Allergy (Intermediate, Verified 02/17/25 16:28) Abdominal Pain nitrofurantoin (From Macrobid) Allergy (Intermediate, Verified 02/17/25 16:28) Rash Penicillins Allergy (Intermediate, Verified 02/17/25 16:28) Rash Sulfa (Sulfonamide Antibiotics) (SULFA(SULFONAMIDE ANTIBIOTICS)) Allergy (Intermediate, Verified 02/17/25 16:28) Rash tramadol Allergy (Intermediate, Verified 02/17/25 16:28) Nausea and Vomiting codeine (CODEINE) Adverse Reaction (Intermediate, Verified 02/17/25 16:28) Nausea Medication List - Last Reconciled 02/17/25 by Bridget Fry PA-C acetaminophen (Tylenol Extra Strength) 1,000 mg PO TID albuterol sulfate 90 mcg/actuation (ProAir HFA) 2 puffs inhalation Q6H PRN amitriptyline 10 mg PO BEDTIME aspirin 81 mg PO DAILY atorvastatin 80 mg PO DAILY blood pressure monitor As directed calcium carbonate-vitamin D3 600 mg-5 mcg (200 unit) 1 tab PO BEDTIME ceramides 1,3,6-II (CeraVe topical cream) 1 appl topical 5XD PRN cholecalciferol (vitamin D3) 25 mcg PO DAILY cyanocobalamin (vitamin B-12) 1,000 mcg PO DAILY diphenhydramine HCl (Benadryl) 25 mg PO DAILY PRN donepezil 5 mg PO DAILY doxycycline hyclate 100 mg PO .prn epoetin kamilah-epbx (Retacrit) units subcut ONCE PRN ferrous sulfate 325 mg PO Q OTHER DAY fexofenadine 180 mg PO BEDTIME fluticasone propionate 220 mcg/actuation 2 puffs inhalation BID gqxmdizc-omscv-uovps-CF borate 750 mg-100 mg- 1.65 mg-108 mg ([facility] [employer]) 1 tab PO BID lidocaine 4% 1 patch topical DAILY PRN metoprolol succinate ER 50 mg PO DAILY pyridoxine (vitamin B6) 100 mg PO DAILY vit C,U-Yc-wlwhv-lutein-zeaxan 250-90-40-1 mg (PreserVision AREDS-2) 1 tab PO BID Tobacco use date assessed: 02/17/25 Fall risk assessment: No Falls in past year Last assessed Fall Risk: 02/17/25 Dental Screening Dental Screen Date: 11/17/24 HPI 3mth f/u HPI Details 89-year-old female with past medical history of asthma, hypertension, anemia, coronary artery disease, congestive heart failure, history of NSTEMI, pulmonary hypertension, dementia, last seen by Dr. Shepard 10/2024 coming in for three-month follow up. Presenting with shoulder pain and macular degeneration. Chronic shoulder pain with ypzo-ms-kpyh contact noted on x-rays, managed with a pain stimulator, though less effective recently. Not a candidate for shoulder replacement due to cardiac concerns. Macular degeneration recently diagnosed Wet type in the left eye since January 2022 and dry type in the right eye, now considered GA, with planned monthly injections. Chronic kidney disease stage 3A: Managed by a kidney specialist, with low sodium levels noted in recent labs. NSAIDs are avoided due to kidney impact. Patient also reports decreased appetite, difficulty sleeping and issues with motivation. [facility] Medical History PONV (postoperative nausea and vomiting) COPD (chronic obstructive pulmonary disease) CHF (congestive heart failure) Macular degeneration Dementia HTN (hypertension) Breast cancer Atherosclerotic cardiovascular disease Coronary artery disease Anemia Aortic stenosis, severe Primary osteoarthritis involving multiple joints Osteoporosis Benign essential HTN Asthma Allergic rhinitis Surgical History History of acute cholecystitis S/P TAVR (transcatheter aortic valve replacement) S/P cardiac catheterization History of hand surgery History of heart artery stent History of laminectomy History of kyphoplasty History of cataract surgery History of D&C Family History Father Hypertension Mother Thyroid cancer Sister Breast cancer Social History Household Members: None Household Members Other:: assisted living [facility] Housing: Assisted Living Facility Housing Other:: [facility] Are you a primary acute care certified nursing assistant to a significant other at home: No Do you presently have visiting nurse or other home services: No Alcohol intake: current Alcohol intake frequency: holidays/special occasions only Alcohol type: beer and wine Patient Tobacco Use Status: Former Tobacco user Tobacco use type: Cigarette Years Smoked: 5 e-Cigarette/Vaping Use: Never Used Second Hand Smoke Exposure: Yes Advance Directives Date on File: 02/06/21 service: No Current occupational status: retired Cognitive needs: Yes (walker/cane) Hearing needs: Yes (hearing aide) Vision needs: Yes (glasses) Questionnaire PHQ-9 Over the last 2 weeks, how often have you been bothered by any of the following problems? 1. Little interest or pleasure in doing things: not at all 2. Feeling down, depressed, or hopeless: not at all 3. Trouble falling or staying asleep, or sleeping too much: not at all 4. Feeling tired or having little energy: several days 5. Poor appetite or overeating: several days 6. Feeling bad about yourself - or that you are a failure or have let yourself or your family down: not at all 7. Trouble concentrating on things, such as reading the newspaper or watching television: several days 8. Moving or speaking so slowly that other people could have noticed. Or the opposite - being so fidgety or restless that you have been moving around a lot more than usual: not at all 9. Thoughts that you would be better off or of hurting yourself in some way: not at all Total score: 3 Depression Screening Interpretation: Positive Depression Screening Done: Yes Source: Developed by Drs. Hossein Elizalde, Olinda Clark, Zak Lechuga and colleagues, with an educational yemi from [employer]. Thrive Questionnaire Date Thrive assessed: 11/17/24 I am a: Patient What is your living situation today?: I have a steady place to live Within the past 12 months, did the food you bought not last and you didn't have the money to get more?: Never true Within the past 12 months, did you worry whether your food would run out before you got money to buy more?: Never true Do you have trouble paying for medicines?: No Do you have trouble getting transportation to medical appointments?: Yes Do you have trouble paying your heating and electricity bill?: No Do you have trouble taking care of your child, family member or friend?: I choose not to answer this question Do you have trouble with day-to-day activities such as bathing, preparing meals, shopping, managing finances, etc.?: Yes Are you currently unemployed and looking for a job?: No Are you interested in more education?: No Please select the resources that you would like help with: None Currently or been in a relationship where the following occur: No concerns reported THRIVE Score: 1 AUDIT C Alcohol Use Questionnaire (AUDIT-C) 1. How often do you have a drink containing alcohol?: 2-4 times a month Total Score: 2 BRUNO-7 AMB Questionnaire BRUNO-7 Date BRUNO - 7 assessed: 11/17/24 Feeling nervous, anxious, or on edge: 0 = Not at all Not being able to stop or control worryin = Not at all Worrying too much about different things: 0 = Not at all Trouble relaxin = Not at all Being so restless that it is hard to sit still: 0 = Not at all Becoming easily annoyed or irritable: 0 = Not at all Feeling afraid as if something awful might happen: 0 = Not at all Total BRUNO-7 score (0-4 normal; 5-9 mild; 10-14 moderate; 15-21 severe): 0 Source: Developed by Drs. Hossein Elizalde, Olinda Clark, Zak Lechuga and colleagues, with an educational yemi from [employer]. Review of Systems Const Denies body aches, Denies chills, Denies fever(s), Denies headache(s) and Denies poor appetite Eyes Reports no additional complaints ENT Denies dizziness and Denies headache(s) Card Denies chest pain, Denies edema, Denies lightheadedness and Denies dyspnea Resp Denies cough and Denies dyspnea GI Denies abdominal pain, Denies constipation, Denies diarrhea, Reports nausea (very rarely ) and Denies vomiting Reports no additional complaints Musc Reports no additional complaints and Denies abnormal gait Skin/Breast Reports system reviewed and no additional complaints, except as documented Neuro Denies abnormal gait, Denies dizziness and Denies headache(s) Psych Reports no additional complaints Physical exam (Primary Care) Vital Signs: Last Vital Signs Temp 97.1 F 02/17/25 16:09 Pulse 72 02/17/25 16:09 BP 130/60 02/17/25 16:09 Pulse Ox 96 02/17/25 16:09 Oxygen Delivery Method Room Air 02/17/25 16:09 BMI result Body Mass Index 25.6 Tobacco/Smoking Status: Tobacco use Status Tobacco use date assessed 02/17/25 02/17/25 16:19 Patient Tobacco Use Status Former Tobacco user 02/17/25 16:19 Tobacco use type Cigarette 02/17/25 16:19 e-Cigarette/Vaping Use Never Used 02/17/25 16:19 PHQ-9: PHQ-9 Score PHQ-9: Total score 3 02/17/25 16:19 Depression Screening Interpretation: Positive Thrive Assessment: Date of Thrive Assessment Date Thrive assessed 11/17/24 02/17/25 16:19 Currently or been in a relationship where the following occur: No concerns reported Const General: cooperative, healthy appearing, comfortable and no acute distress Orientation/consciousness: patient oriented x3 [facility] Head: Yes normocephalic Ears: hearing grossly normal bilaterally General nose exam: Normal external nose present Eyes General: appearance normal, both eyes and all related structures Conjunctivae: conjunctivae normal Neck Neck: Yes full ROM and Yes no lymphadenopathy Resp Effort & Inspection: normal respiratory effort Auscultation: clear to auscultation bilaterally, no crackles, no rales, no rhonchi and no wheezes Cardio Rate: regular rate Rhythm: regular rhythm Skin General skin exam: no rashes or lesions noted Neuro General: patient oriented x3 Gait exam (Neuro): Normal gait present Extrem General: Yes normal to inspection, Yes full ROM and No edema Psych Affect: normal affect Attitude: cooperative Insight: Good insight present (Psych) Judgement: Good judgement present (Psych) Coding Level of Care Code Est Pt Level 3 (14479) Diagnoses Benign essential HTN I10 CHF (congestive heart failure) I50.9 Primary osteoarthritis, right shoulder M19.011 Dementia F03.90 Poor appetite R63.0 Assessment & Plan Assessment & Plan (1) Benign essential HTN: Code(s): I10 - Essential (primary) hypertension Category: Medical Plan: Continue on current blood pressure medication. Avoid salt intake and encourage healthy diet and regular exercise. (2) CHF (congestive heart failure): Comment: prior to TAVR surgery Code(s): I50.9 - Heart failure, unspecified Category: Medical (3) Primary osteoarthritis, right shoulder: Code(s): M19.011 - Primary osteoarthritis, right shoulder Category: Medical Plan: Continue to follow up with Dr. Garcia for management of osteoarthritis of right shoulder. She has a pain stimulator placed as this time and finds this mildly beneficial. (4) Dementia: Code(s): F03.90 - Unspecified dementia, unspecified severity, without behavioral disturbance, psychotic disturbance, mood disturbance, and anxiety Category: Medical Plan: Patient is oriented but mildly confused in the room today. Daughter is her primary historian. She appears to be baseline level of cognition at this time. She has been having issues with appetite, motivation and difficulty sleeping. Plan to trial mirtazapine nightly and follow up in 3 months. (5) Poor appetite: Code(s): R63.0 - Anorexia Category: Medical Plan: See above Plan The patient's shoulder pain will be managed by optimizing the pain stimulator settings, with guidance from the railroad car painter. Due to cardiac concerns, surgical intervention is not feasible, so pain management will focus on non-invasive methods, including acetaminophen and topical treatments like lidocaine or capsaicin, while avoiding NSAIDs. For macular degeneration, the patient will receive monthly injections, with ongoing monitoring by the behavioral health aide. Chronic kidney disease management includes regular lab work to monitor kidney function and sodium levels, with emphasis on maintaining hydration and nutrition. Ondansetron has been prescribed for nausea, to be used as needed. A new medication is being considered to improve appetite and motivation, which may also enhance sleep quality. The patient will be monitored for side effects, and follow-up will be arranged to evaluate treatment efficacy. This note was constructed using voice recognition software. While every effort has been made to ensure accuracy and civil engineering technician, still areas may have been included sometimes these areas may affect the content or meeting of the given symptoms. Total time spent caring for the patient today was 30 minutes. This includes time spent before the visit reviewing the chart, time spent during the visit, and time spent after the visit and documentation. Patient was informed and verbally consented to the use of an ambient scribe for clinic note documentation during this visit. Medications: New ondansetron 4 mg PO Q8H 14 tabs 0RF mirtazapine 7.5 mg PO BEDTIME 90 tabs 1RF
[2025-02-17 16:09] VITALS: BP 130/60; PULSE 72; TEMP 36.2; O2SAT 96; BMI 25.6
== END 2025-02-17 17:01 | disposition home or self-care (01) ==
LOC: HO.HMCH 16:03
PROVIDERS: PCP Internal Medicine
DX: I10 Essential (primary) hypertension (principal); I50.9 Heart failure, unspecified; M19.011 Primary osteoarthritis, right shoulder; F03.90 Unspecified dementia, unspecified severity, without behavioral disturbance, psychotic disturbance, mood disturbance, and anxiety; R63.0 Anorexia

== ENCOUNTER → 2025-02-17 16:02 | Outpatient (BNVA) | payer BC, SELFPAY | PROVIDERS: PCP Internal Medicine | DX: Z13.89 Encounter for screening for other disorder (principal) ==

== ENCOUNTER 2025-05-26 12:58 | Outpatient (AMB) | payer BC, SELFPAY ==
--- OUTSIDE RECORDS SUMMARY | 2024-01-01 08:15 | XMS_ITS ---
Author Organization [facility] Address [address] [place] [address] Care Team Providers Care Clinical Nurse Educator Name Role Phone Michael Shepard Primary Care Provider Rinku Payan [phone] Gama Encounters Encounter Location Date [facility] [address] [place] [id number] 01/01/2024 Rinku Payan Plan Of Treatment No Information Progress Notes * Reinier DAVISONineDOB:[birth year] (89 yo F)Acc No.[id number]:01/01/2024 Progress Note Patient: Beena DARLING Provider: Jonathan Payan DPM :1935 A ge:88 Y S ex:Female Date:01/01/2024 Address:[address] [place], [place] [id number] Pcp:Michael Shepard Subjective: * Chief Complaints: * [address] Gama. * Medical History: Objective: * Vitals: Assessment: Plan: * Treatment: * Images: * The named appointment provid er may or may not be the originator of this progress note, and it is not deemed complete until electronically signed by the appointment provider. Sign off status: Pending * Provider: Jonathan Payan DPM Date: 0 01/01/2024 Generated for Rambo alberts/Vinicius/Kellyransmitting on: 1 01:21 PM EDT
--- OUTSIDE RECORDS SUMMARY | 2024-01-05 11:00 | XMS_ITS ---
Author Organization [facility] Address [address] [place] [address] Care Team Providers Care Pole Framer Machine Name Role Phone Michael Shepard Primary Care Provider Rinku Payan [phone] Encounters Encounter Location Date Provider Diagnosis [address] [id number] 01/05/2024 Rinku Payan Plan Of Treatment No Information Progress Notes * Reinier DAVISONineDOB:[birth year] (89 yo F)Acc No.[id number]:01/05/2024 Progress Note Patient: Beena DARLING Provider: Jonathan Payan DPM :1935 A ge:88 Y S ex:Female Date:01/05/2024 Address:[address] [place], [place] [id number] Pcp:Michael Shepard Subjective: * Chief Complaints: * * Medical History: Objective: * Vitals: Assessment: Plan: * Treatment: * Images: * The named appointment provid er may or may not be the originator of this progress note, and it is not deemed complete until electronically signed by the appointment provider. Sign off status: Pending * Provider: Jonathan Payan DPM Date: 0 01/05/2024 Generated for Printi ng/Faxing/eTransmitting on: 01:21 PM EDT
--- OUTSIDE RECORDS SUMMARY | 2024-04-08 09:00 | XMS_ITS ---
Author Organization [facility] [place] Address [address] [place] [address] Care Team Providers Care Neurosurgical Nurse Practitioner Name Role Phone DreaWayneMichael Primary Care Provider Rinku Payan [phone] REASON FOR VISIT Painful thick toenails which are aggrevated by shoes and causes difficulty standing/walking Medications Medication SIG (Take, Route, Frequency, Duration) Notes Start Date End Date Status Nitro-Bid 2 % as directed Transder mal apply bid to both feet; Duration: 30 days Act joey Encounters Encounter Location Date [facility] [address] [address] 04/08/2024 Rinku Payan Tinea unguium B35.1 ; Pain in left foot M79.672 ; Pain in right foot M79.671 ; Pain in right toe(s) M79.674 ; Pain in left toe(s) M79.675 ; Unspecified atherosclerosis of [place] arteries of extremities, bilateral legs I70.203 ; [...] (ICD-10 - M79.675) 04/08/2024 Unspecified atherosclerosis of [place] arteries of extremities, bilateral legs (ICD-10 - [...] or Cutting o f Benign Hyperkeratotic Lesion(s) 60477 ( >4 Lesions) - The Benign hyperkeratotic [...] as necessary. Patient chooses, no pharmaceutical tx (66647) Nail Reduction Nail Reduction Trimming of dyst rophic nails performed to reduce/remove overall nail length and girth, by manual and electrical means with use of a nail nipper and/or dremel, to more viable healthy nail plate or bed tissue 6-10 (G0127) Progress Notes * Reinier DAVISONineDOB:[birth year] (89 yo F)Acc No.[id number]:04/08/2024 Progress Note Patient: Jonathan UMUReinierBeena Provider: Jonathan Payan DPM :1935 A ge:88 Y S ex:Female Date:04/08/2024 Address:[address] [place] [address], [facility] Pcp:Michael Shepard Subjective: * Chief Complaints: * [...] enies. C ardiovascular: Pacemaker d enies. M SCALE MANAGER d enies. W PW d enies. C [...] M79.675 6 . U nspecified atherosclerosis of [place] arteries of extremities, bilateral legs - I70.203 [...] as necessary. Patient chooses, no pharmaceutical tx (88367). K eratoma Treatment: Parring or Cutting of [...] 1720 DEBRIDE NAIL, 1-5, Modifiers: XS , 51985 TRIM SKIN LESIONS, OVER 4, Modifiers: Q8 [...] 04/08/2024 Generated for Rambo alberts/Vinicius/Jose R on: 1 01:21 PM EDT History and Physical Notes * HPI (History [...]
--- NOTE | 2025-05-26 12:58 | MHC.PC.OV ---
Intake Visit Reasons: follow up Allergies meperidine (From Demerol) Allergy (Severe, Verified 05/26/25 13:00) Nausea and Vomiting amoxicillin (AMOXICILLIN) Allergy (Intermediate, Verified 05/26/25 13:00) Rash cephalexin Allergy (Intermediate, Verified 05/26/25 13:00) Itching erythromycin base Allergy (Intermediate, Verified 05/26/25 13:00) Itching meloxicam Allergy (Intermediate, Verified 05/26/25 13:00) Abdominal Pain nitrofurantoin (From Macrobid) Allergy (Intermediate, Verified 05/26/25 13:00) Rash Penicillins Allergy (Intermediate, Verified 05/26/25 13:00) Rash Sulfa (Sulfonamide Antibiotics) (SULFA(SULFONAMIDE ANTIBIOTICS)) Allergy (Intermediate, Verified 05/26/25 13:00) Rash tramadol Allergy (Intermediate, Verified 05/26/25 13:00) Nausea and Vomiting codeine (CODEINE) Adverse Reaction (Intermediate, Verified 05/26/25 13:00) Nausea Medication List - Last Reconciled 05/26/25 by Bridget Fry PA-C acetaminophen (Tylenol Extra Strength) 1,000 mg PO TID albuterol sulfate 90 mcg/actuation (ProAir HFA) 2 puffs inhalation Q6H PRN amitriptyline 10 mg PO BEDTIME aspirin 81 mg PO DAILY atorvastatin 80 mg PO DAILY blood pressure monitor As directed calcium carbonate-vitamin D3 600 mg-5 mcg (200 unit) 1 tab PO BEDTIME ceramides 1,3,6-II (CeraVe topical cream) 1 appl topical 5XD PRN cholecalciferol (vitamin D3) 25 mcg PO DAILY cyanocobalamin (vitamin B-12) 1,000 mcg PO DAILY diphenhydramine HCl (Benadryl) 25 mg PO DAILY PRN donepezil 5 mg PO DAILY 90 days doxycycline hyclate 100 mg PO .prn epoetin kamilah-epbx (Retacrit) units subcut ONCE PRN ferrous sulfate 325 mg PO Q OTHER DAY fexofenadine 180 mg PO BEDTIME fluticasone propionate 220 mcg/actuation 2 puffs inhalation BID pinxnubg-ohxmm-jqdht-CF borate 750 mg-100 mg- 1.65 mg-108 mg ([facility]) 1 tab PO BID lidocaine 4% 1 patch topical DAILY PRN metoprolol succinate ER 50 mg PO DAILY mirtazapine 7.5 mg PO BEDTIME ondansetron 4 mg PO Q8H pyridoxine (vitamin B6) 100 mg PO DAILY vit C,T-Pq-dcrnr-lutein-zeaxan 250-90-40-1 mg (PreserVision AREDS-2) 1 tab PO BID Tobacco use date assessed: 05/26/25 Fall risk assessment: No Falls in past year Last assessed Fall Risk: 05/26/25 Dental Screening Dental Screen Date: 05/26/25 Did you have a dental visit in the last 12 months?: Yes Did you have a dental problem in the last 6 months where you did not have access to dental care?: No Was dental information given to patient?: Patient has dentist HPI follow up HPI Details 89-year-old female with past medical history of asthma, hypertension, anemia, coronary artery disease, congestive heart failure, history of NSTEMI, pulmonary hypertension, dementia, last seen 01/2025 coming in for follow up. Patient presents today via telehealth with her daughter. Overall she is feeling generally well. She does often skip meals and has not noticed an increase in her appetite and started on mirtazapine. She often skips meals due to sleeping in late and also goes to bed typically between 12-1AM and sleeps until 11-12 in the afternoon. She skips lunch and will typically have dinner. [facility] Medical History PONV (postoperative nausea and vomiting) COPD (chronic obstructive pulmonary disease) CHF (congestive heart failure) Macular degeneration Dementia HTN (hypertension) Breast cancer Atherosclerotic cardiovascular disease Coronary artery disease Anemia Aortic stenosis, severe Primary osteoarthritis involving multiple joints Osteoporosis Benign essential HTN Asthma Allergic rhinitis Surgical History History of acute cholecystitis S/P TAVR (transcatheter aortic valve replacement) S/P cardiac catheterization History of hand surgery History of heart artery stent History of laminectomy History of kyphoplasty History of cataract surgery History of D&C Family History Father Hypertension Mother Thyroid cancer Sister Breast cancer Social History Household Members: None Household Members Other:: assisted living [facility] Housing: Assisted Living Facility Housing Other:: [facility] Are you a primary hospice home care coordinator to a significant other at home: No Do you presently have visiting nurse or other home services: No Alcohol intake: current Alcohol intake frequency: holidays/special occasions only Alcohol type: beer and wine Patient Tobacco Use Status: Former Tobacco user Tobacco use type: Cigarette Years Smoked: 5 e-Cigarette/Vaping Use: Never Used Second Hand Smoke Exposure: Yes Advance Directives Date on File: 02/06/21 service: No Current occupational status: retired Cognitive needs: Yes (walker/cane) Hearing needs: Yes (hearing aide) Vision needs: Yes (glasses) Questionnaire PHQ-9 Over the last 2 weeks, how often have you been bothered by any of the following problems? 1. Little interest or pleasure in doing things: not at all 2. Feeling down, depressed, or hopeless: not at all 3. Trouble falling or staying asleep, or sleeping too much: not at all 4. Feeling tired or having little energy: several days 5. Poor appetite or overeating: several days 6. Feeling bad about yourself - or that you are a failure or have let yourself or your family down: not at all 7. Trouble concentrating on things, such as reading the newspaper or watching television: several days 8. Moving or speaking so slowly that other people could have noticed. Or the opposite - being so fidgety or restless that you have been moving around a lot more than usual: not at all 9. Thoughts that you would be better off or of hurting yourself in some way: not at all Total score: 3 Depression Screening Interpretation: Positive Depression Screening Done: Yes Source: Developed by Drs. Hossein Elizalde, Olinda Clark, Zak Lechuga and colleagues, with an educational yemi from [employer]. Thrive Questionnaire Date Thrive assessed: 02/17/25 I am a: Patient What is your living situation today?: I have a steady place to live Within the past 12 months, did the food you bought not last and you didn't have the money to get more?: Never true Within the past 12 months, did you worry whether your food would run out before you got money to buy more?: Never true Do you have trouble paying for medicines?: No Do you have trouble getting transportation to medical appointments?: Yes Do you have trouble paying your heating and electricity bill?: No Do you have trouble taking care of your child, family member or friend?: I choose not to answer this question Do you have trouble with day-to-day activities such as bathing, preparing meals, shopping, managing finances, etc.?: Yes Are you currently unemployed and looking for a job?: No Are you interested in more education?: No Please select the resources that you would like help with: None Currently or been in a relationship where the following occur: No concerns reported THRIVE Score: 1 AUDIT C Alcohol Use Questionnaire (AUDIT-C) 1. How often do you have a drink containing alcohol?: 2-4 times a month 2. How many drinks containing alcohol do you have on a typical day when you are drinking?: 1 or 2 3. How often do you have six or more drinks on one occasion?: Never Total Score: 2 BRUNO-7 AMB Questionnaire BRUNO-7 Date BRUNO - 7 assessed: 11/17/24 Feeling nervous, anxious, or on edge: 0 = Not at all Not being able to stop or control worryin = Not at all Worrying too much about different things: 0 = Not at all Trouble relaxin = Not at all Being so restless that it is hard to sit still: 0 = Not at all Becoming easily annoyed or irritable: 0 = Not at all Feeling afraid as if something awful might happen: 0 = Not at all Total BRUNO-7 score (0-4 normal; 5-9 mild; 10-14 moderate; 15-21 severe): 0 Source: Developed by Drs. Hossein Elizalde, Olinda Clark, Zak Lechuga and colleagues, with an educational yemi from [employer]. Review of Systems Const Denies body aches, Denies chills, Denies fever(s), Denies headache(s) and Denies poor appetite Eyes Reports no additional complaints ENT Denies dizziness and Denies headache(s) Card Denies chest pain, Denies edema, Denies lightheadedness and Denies dyspnea Resp Denies dyspnea GI Denies abdominal pain, Denies nausea and Denies vomiting Reports no additional complaints Musc Reports no additional complaints and Denies abnormal gait Skin/Breast Reports system reviewed and no additional complaints, except as documented Neuro Denies abnormal gait, Denies dizziness and Denies headache(s) Psych Reports no additional complaints Physical exam (Primary Care) Vital Signs: Vital signs and physical exam not performed due to nature of telehealth visit. Tobacco/Smoking Status: Tobacco use Status Tobacco use date assessed 02/17/25 05/22/25 15:30 Patient Tobacco Use Status Former Tobacco user 05/22/25 15:30 Tobacco use type Cigarette 05/22/25 15:30 e-Cigarette/Vaping Use Never Used 05/22/25 15:30 Depression Screening Interpretation: Positive Thrive Assessment: Date of Thrive Assessment Date Thrive assessed 02/17/25 05/22/25 15:30 Currently or been in a relationship where the following occur: No concerns reported Telehealth Telehealth Telehealth Platform: Telephone Location of provider rendering services: practice address Location of patient: address on file Patient Identification confirmed using: Name, : Yes Telehealth method: voice only Patient verbally consented to treatment: Yes Patient verbally consented to billing insurance company: Yes Patient informed of any privacy concerns related to visit: Yes Coding Level of Care Code Est Pt Level 3 (72373) Diagnoses Benign essential HTN I10 Dementia F03.90 Poor appetite R63.0 Assessment & Plan Assessment & Plan (1) Benign essential HTN: Code(s): I10 - Essential (primary) hypertension Category: Medical Plan: Continue on current blood pressure medication. Avoid salt intake and encourage healthy diet and regular exercise. (2) Dementia: Code(s): F03.90 - Unspecified dementia, unspecified severity, without behavioral disturbance, psychotic disturbance, mood disturbance, and anxiety Category: Medical Plan: Patient was oriented over the phone today however full mental status is difficult to evaluate but she appears to be baseline. She has been using the mirtazapine and feels has been beneficial for her mood sleep however she does not notice increased appetite. She will continue on his medication and continue to follow with Neurology (3) Poor appetite: Code(s): R63.0 - Anorexia Category: Medical Plan: For poor appetite she will continue on mirtazapine 7.5 mg and declines and increased today. She typically will forget to drink the shakes as they are starting the refrigerator. I discussed having patient keep the bottles in readily available areas to encouraged her to try these when needed. Also discussed adjusting asleep schedule to accommodate for lunch times. Plan This note was constructed using voice recognition software. While every effort has been made to ensure accuracy and deck and hull assembler, still areas may have been included sometimes these areas may affect the content or meeting of the given symptoms. Total time spent caring for the patient today was 20 minutes. This includes time spent before the visit reviewing the chart, time spent during the visit, and time spent after the visit and documentation.
--- OUTSIDE RECORDS SUMMARY | 2025-05-26 13:21 | XMS_ITS | Clinical Summary ---
Author Organization [facility] Address [address] [place] [address] Care Team Providers Care Knitted Cloth Examiner Name Role Phone Pcp, No Primary Care [...] Low 09/05/2021 Tramadol Rash/Dermatitis Low 01/04/2021 Medications ALBUTEROL IN Albuterol Active ASPIRIN 81 PO Aspir-81 Active ATORVASTATIN CALCIUM PO Atorvastatin Calcium Active METOPROLOL TARTRATE PO as directed Orally Active CIMETIDINE HCL PO Cimetidine Active diphenhydrAMIN E-APAP, sleep, (DIPHENHYDRAMI NE-APAP PO) Diphenhydramine Ac tive Ferrous Sulfate Dried (FERROUS SULFATE CR PO) [...] tablet Take 81 mg by mouth daily. 09/28/19 23 Active atorvastatin (LIPITOR) 80 MG tablet Take 80 mg by mouth daily. 10/06/19 23 Active calcium carbonate (CALTRATE) 1500 (600 Ca) MG tablet 1 tablet with meals Orally Twice a day for 30 day(s) Active cetirizine (ZyrTEC) 10 MG tablet Take 10 mg by mouth. Active Chondroitin Sulfate 150 MG Cap as directed Orally A ctive glucosamine 500 MG Cap capsule 1 capsule with a meal Orally Once a day for 30 day(s) Active lysine (L-LYSINE) 1000 MG Tab tablet as directed Orally A ctive NIFEdipine ER (ADALAT CC) 30 MG 24 hr tablet 11/28/19 23 Active vitamin E 400 UNIT capsule Take 400 Units by mouth. Active metoPROLOL TARTRATE (LOPRESSOR) 25 MG tablet 1 tablet Orally Twice a day for 30 day(s) Active doxycycline (VIBRAMYCIN) 100 MG capsuleIndicat ions:Acute cystitis with hematuria Take 1 capsule (100 mg total) by mouth 2 (two) times a day. 14 capsule 11/30/19 23 Active ciprofloxacin (CIPRO) 250 mg tabletIndicati ons:Urinary tract infection symptoms Take 1 tablet (250 mg total) by mouth 2 (two) times a day. 14 tablet 01/05/20 23 Active Active Problems No known active problems Social History Tobacco Use Types Packs/Day Years Used Date Smoking Tobacco: Never Smokeless Tobacco: Never Tobacco Cessation:Counseling Given: Not Answered Comments No Sex and Gender Information Value Date Recorded Sex Assigned at Not on file Legal Sex Female 6:20 PM EST Gender Identity Not on file Sexual Orientation Not on file Last Filed Vital Signs Vital Sign Reading Time Taken Comments Blood Pressure 139/56 01/24/2023 3:46 PM EDT Pulse 54 01/24/2023 3:46 PM EDT Temperature 36.2 C (97.2 F) 01/24/2023 3:46 PM EDT Respiratory Rate 16 01/24/2023 3:46 PM EDT Oxygen Saturation 99% 01/24/2023 3:46 PM EDT Inhaled Oxygen Concentration - - Weight 80.3 kg (177 lb) 11/29/2022 3:49 PM EDT Height 165.1 cm (5' 5 ) 11/29/2022 3:49 PM EDT Body Mass Index 29.45 11/29/2022 3:49 PM EDT Plan of Treatment Health Maintenance Due Date Last Done Comments Advance Care Planning 1936 DTaP/Tdap/Td Vaccines (1 - Tdap) 1955 Pneumococcal Vaccines 50+ (1 of 1 - PCV) 1986 Zoster (Shingles) Vaccine (1 of 2) 1986 DXA Bone Density (Females,Ag es 65 and older) 2001 RSV Vaccine 60 years and old er and Patients (1 - 1-dose 75+ series) 2011 Influenza Vaccine 03/24/2025 05/22/2021 COVID-19 Vaccine (2 - 2024-2 6 season) 2025 10/22/2020 Hepatitis B Vaccines Aged Out No long er eligible based on patient's age to complete this topic [place] [address] [place] [address] OUT OF FOR[facility]LY [facility] - HMO Care Teams Knitted Cloth Examiner Relationship Specialty Start Date End Date Pcp, No PCP - General General Medicine 11/18/22
--- OUTSIDE RECORDS SUMMARY | 2025-05-26 13:21 | XMS_ITS | Patient Health Record ---
[facility] Address [address] [address] Care Team Providers Care Affiliate Marketing Manager Name Role Phone Michael Shepard Primary Care Provider Rinku Payan [phone] Allergies Allergen (clinical drug ingredient) Drug/Non Drug [...] MG 1 tablet Orall y Twice a day; Duration: 30 day(s) Active Lysine 1000 MG as directed Orally Active predniSONE 10 MG 1 tablet with food or milk Orally Once a day; Duration: 30 day(s) Not-Taking Flovent HFA Active hydroCHLOROthiazide 25 MG 1 tablet Orall y Once a day; Duration: 30 day(s) Not-Taking Diphenhydramine Allergy PRN Ac tive Metoprolol & Diet Manage Prod 50 MG as directed Orally Not-Taking Nitro-Bid 2 % as directed Transdermal apply bid to both feet; Duration: 30 days Active NIFEdipine ER Active Alendronate Sodium 70 MG 1 tablet 30 minutes before the first food, beverage or medicine of the day with plain water Orally; Duration: 30 day(s) Active Simvastatin 10 MG 1 tablet in the evening Orally Once a day; Duration: 30 day(s) Not-Taking Cefaclor 250 MG 1 capsule Orally every 8 hrs; Duration: 10 day(s) Not-Taking Acidophilus as directed Orally Not-Taking Calcium 600 MG 1 tablet with meals Orally Twice a day; Duration: 30 day(s) Active HYDROcodone-Acetaminophen Not-Taking Atorvastatin Calcium Active Prednisone 5 mg twice a week N ot-Taking Aspir-81 Active Cimetidine Not-Takin g Amitriptyline HCl 10 MG 1 tablet at bedtime Orally Once a day; Duration: 30 day(s) Active Lisinopril 5 MG 1 tablet Orally Once a day; Duration: 30 day(s) Not-Taking Cod Liver Oil Active Anastrozole 1 MG 1 tablet Orally Once a day Not-Taking Fexofenadine HCl 180 MG 1 tablet Swallow whole with water; do not take with fruit juices. Orally Once a day; Duration: 30 day(s) Active Chondroitin Sulfate 150 MG as directed Orally Not-Taking Iron Active LORazepam 0.5 MG 1 tablet at bedtime as needed Orally Once a day PRN Not-Taking PreserVision AREDS 2 Active Glucosamine 500 MG 1 capsule with a meal Orally Once a day; Duration: 30 day(s) Not-Taking Acetaminophen PRN Active Doxycycline Hyclate Active ProAir HFA 108 (90 Base) MCG/ACT 1 puff as needed Inhalation every 4 hrs Active Ocuvite as directed Orally Not-Taking Omeprazole 20 MG as directed Orally Active Ferrous Sulfate 325 (65 Fe) MG 1 tablet Orally Once a day; Duration: 30 day(s) Not-Taking Clindamycin HCl Not- Taking Albuterol Not-Taking Vitamin B6 Active Ciprofloxacin Not-Ta [place] Vitamin C Active Vitamin E 100 UNIT 1 capsule Orally Once a day; Duration: 30 day(s) Active Stool Softener Activ e Vitamin D & vit B6 , C w/ jarvis hips Active Vitamin B 12 & cod liver Activ e Plavix Not-Taking Immunizations Vaccine Route Administration Date Status Comme nts COVID-19 Moderna Vaccine Unknown 10/22/2020 Administere d 10/01/2020 Social History Tobacco Use: Social History [...] Risk Notes Problem Pain in right foot (636237454728680) Pain in right foot (M79.671) Active confirmed Problem Bilateral atherosclerosis of arteries of lower limbs (disorder) (46564230474863182 ) Unspecified atherosclerosis of [place] arteries of extremities, bilateral legs (I70.203) Active confirmed Problem Localized, primary osteoarthritis of the ankle and/or foot (869117853) Primary osteoarthritis, right ankle and foot (M19.071) Active confirmed Problem Raynaud's disease (152355867) Raynauds disease without gangrene (I73.00) Active confirmed Plan Of Treatment Pending Test Test Name Order Date X ray : Foot, left 3V 08/15/2013 X ray : Foot, right 3V 08/15/2013 X ray : Foot, right 3V 08/04/2019 44697-FHPGXVB NAIL, 08-2808/15/2013 33756-BUSGGIT NAIL, 08-2811/03/2013 85443-IQHKOSU NAIL, 08-2801/12/2014 86313-HARYNMM NAIL, 08-2804/12/2014 08027-VFNRBLI NAIL, 08-2807/13/2014 48427-KWKKBDA NAIL, 08-2810/16/2014 25356-ARWGPPL NAIL, 08-2801/17/2015 19536-QSVZHSD NAIL, 08-2807/02/2015 11442-KDMSEAY NAIL, 08-2809/26/2015 75583-WOCXVAZ NAIL, 08-2812/26/2015 54842-QHGHRYC NAIL, 08-2804/05/2015 86215-FKDQLYM NAIL, -5 03/26/2016 69358-RWTDCVE NAIL, -5 06/25/2016 83131-UUMBCMM NAIL, -10/01/2016 18999-UHCZNDC NAIL, -03/26/2017 80095-KXFJSZK NAIL, -05/28/2017 20444-VAJFZAZ NAIL, -5 07/30/2017 10113-DHNVDVG NAIL, -10/01/2017 22532-KCVAKGK NAIL, -12/03/2017 54452-XDCOSMH NAIL, -02/10/2018 14357-IFCKHQI NAIL, -05/05/2018 10626-BSLTVXQ NAIL, -08/05/2018 90825-Jtpg Destruction, -05/05/2018 21859-Czsi Destruction, -14 03/26/2016 10394-Kjax Destruction, -14 04/05/2015 57297-Lcxa Destruction, -14 12/26/2015 90564-Wgrm Destruction, -09/26/2015 22487-Qjwm Destruction, -14 07/02/2015 94915-Ehfc Destruction, -14 01/17/2015 52077-Ssbs Destruction, -14 10/16/2014 61460-Fwcs Destruction, -07/13/2014 30273-Ivde Destruction, -14 04/12/2014 52903-Loxn Destruction, -14 01/12/2014 05545-Mplh Destruction, -14 12/30/2012 29500-Ghrw Destruction, -02/02/2013 98987-Lluf Destruction, -14 03/09/2013 11054-Pykt Destruction, -08/05/2018 68296-Jybnozoh Plate 07/13/2014 42628- Debride <25 sq cm 10/23/2017 63187-FTMN SKIN LESIONS, OVER 4 12/04/19 18 17830-MKAT SKIN LESIONS, OVER 4 10/01/19 18 20238-ILZJ SKIN LESIONS, OVER 4 02/11/20 18 20340-XNVC SKIN LESIONS, OVER 4 08/05/20 18 31896-UACH SKIN LESIONS, OVER 4 05/28/20 17 55201-LBFA SKIN LESIONS, OVER 4 07/30/20 17 60331-YRCF SKIN LESIONS, OVER 4 10/01/19 17 72967-NROX SKIN LESIONS, OVER 4 06/25/20 16 26853-IFOV SKIN LESIONS, OVER 4 01/02/20 17 98966-BBTM SKIN LESIONS, OVER 4 03/26/20 16 82689-IACJ SKIN LESIONS, OVER 4 03/26/20 17 75446-ASSO SKIN LESIONS, OVER 4 11/05/19 19 74698-NQAM SKIN LESIONS, OVER 4 02/04/20 19 71086-CDIB SKIN LESIONS, OVER 4 05/05/20 19 31017-RDRI SKIN LESIONS, OVER 4 08/04/20 19 83053-WGGW SKIN LESIONS, OVER 4 11/03/19 20 99720-KMMN SKIN LESIONS, OVER 4 05/24/20 20 80216-YURV SKIN LESIONS, OVER 4 09/03/19 21 54456-WNXA SKIN LESIONS, OVER 4 12/20/19 21 03936-HMCR SKIN LESIONS, OVER 4 03/26/20 21 26244-XTRB SKIN LESIONS, OVER 4 06/13/20 21 01223-KSJJ SKIN LESIONS, OVER 4 09/05/19 22 18112-CKJE SKIN LESIONS, OVER 4 12/06/19 22 28029-EFJK SKIN LESIONS, OVER 4 05/05/20 18 96639-YHIE SKIN LESIONS, 2 TO 4 07/02/20 15 57079-UOFQ SKIN LESIONS, 2 TO 4 09/26/19 16 18782-HQCD SKIN LESIONS, 2 TO 4 12/26/19 16 98730-PJFS NAIL(S) 12/26/2015 43955-NAKZ NAIL(S) 03/26/2016 28870-JPLP NAIL(S) 09/26/2015 58606-NNHS NAIL(S) 07/02/2015 90915-EADZ NAIL(S) 01/01/2017 33915-BBAQ NAIL(S) 06/25/2016 72181-CJCZ NAIL(S) 10/01/2016 92160-ICUY NAIL(S) 07/30/2017 93120-KXDV NAIL(S) 05/28/2017 52138-YBPC NAIL(S) 03/26/2017 71908-XWPF NAIL(S) 12/03/2017 59204-GDNA NAIL(S) 10/01/2017 J0127-EAKGUNFD DYSTROPHIC NAILS ANY # F1428-TYIAXAAR DYSTROPHIC NAILS ANY # N0947-JRCCELAF DYSTROPHIC NAILS ANY # C2142-GOTCIVSF DYSTROPHIC NAILS ANY # C6672-YBDMFRIY DYSTROPHIC NAILS ANY # V5018-CHIQKWGW DYSTROPHIC NAILS ANY # F3722-AFYQGJOW DYSTROPHIC NAILS ANY # V8917-VVQWYNYN DYSTROPHIC NAILS ANY # V6352-UQSAZXEF DYSTROPHIC NAILS ANY # C1600-KCZWCITG DYSTROPHIC NAILS ANY # X1721-FNNWJCOX DYSTROPHIC NAILS ANY # C9412-DMDYHPXB DYSTROPHIC NAILS ANY # X8192-DLZYWSDK DYSTROPHIC NAILS ANY # D1726-KCLEZLTU DYSTROPHIC NAILS ANY # Q5321-YVCOVAJH DYSTROPHIC NAILS ANY # 04126-UHUBQDTP OF HEMATOMA/FLUID 018 12224, J0702- Neuroma/Injection 09/15/19 14 Insurance Providers Payer Name Payer Address Payer Phone Subscriber Number Group Number Insured Name Patient Relationship to Insured Coverage Start Date Coverage End Date [facility] [address] [place] [address] [phone] [id number] [place] Beena Self - patient is [...] Hospitalization History Reason Date(Month/Year) [facility]-Heart Attack 11/22/20 [facility] -gallbladder isuues 01/2021 [facility]/ [facility] - Heart Issues Rehab few d ays 10/2020,11/2020 [facility]- admitted for stomache issues. 8 Patient was admitted to [facility] for COPD. -09/22/12
--- OUTSIDE RECORDS SUMMARY | 2025-05-26 13:21 | XMS_ITS | Clinical Summary ---
Author Organization [facility] Address [address] [place] [address] Care Team Providers Care Health Care Assistant Name Role Phone Michael Shepard MD Primary [...] 1-dose 75+ series) 2011 Influenza Vaccine (#1) 2025 Hepatitis B Vaccines Aged Out No long er eligible based on patient's age to complete this topic RSV Ped < 20 months Aged Out No longe r eligible based on patient's age to complete this topic Care Teams Health Care Assistant Relationship Specialty Start Date End Date Michael Shepard MD [address] [place] [address] Dr Carpio [address] [place] [address] [place] [address] PCP - General Internal Medicine 10/26/20
== END 2025-05-26 13:24 | disposition home or self-care (01) ==
LOC: HO.HMCH 12:58
PROVIDERS: PCP Internal Medicine
DX: I10 Essential (primary) hypertension (principal); F03.90 Unspecified dementia, unspecified severity, without behavioral disturbance, psychotic disturbance, mood disturbance, and anxiety; R63.0 Anorexia

== ENCOUNTER 2025-07-26 14:56 | Outpatient (AMB) | payer BC, SELFPAY ==
--- OUTSIDE RECORDS SUMMARY | 2024-04-08 08:00 | XMS_ITS ---
Author Organization [facility] Yany eduardo Telephone Address [address] [place] [address] Care Team Providers Care Refrigeration Tech Name Role Phone Drea, Kartik Primary Care Provider Rinku Paula Unavailable [phone] REASON FOR VISIT Painful thick toenails which are aggrevated by shoes and causes difficulty standing/walking Medications Medication SIG (Take, Route, Frequency, Duration) Notes Start Date End Date Status Nitro-Bid 2 % as directed Transder mal apply bid to both feet; Duration: 30 days Act joey Encounters Encounter [facility] Date [facility] [address] [address] 04/08/2024 Rinku Paula Tinea unguium B35.1 ; Pain in left foot M79.672 ; Pain in right foot M79.671 ; Pain in right toe(s) M79.674 ; Pain in left toe(s) M79.675 ; 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, bilateral legs I70.203 ; Primary osteoarthritis, right ankle and foot M19.071 ; Metatarsalgia, right foot M77.41 ; Raynauds disease without gangrene I73.00 and Xerosis cutis L85.3 Assessments Encounter Date Diagnosis (ICD Code) Assessment Notes Treatment Notes Treatment Clinical Notes Section Notes 04/08/2024 Tinea unguium (ICD-10 - B35.1) 04/08/2024 Pain in left foot (ICD-10 - M79.672) 04/08/2024 Pain in right foot (ICD-10 - M79.671) 04/08/2024 Pain in right toe(s) (ICD-10 - M79.674) 04/08/2024 Pain in left toe(s) (ICD-10 - M79.675) 04/08/2024 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, bilateral legs (ICD-10 - I70.203) 04/08/2024 Primary osteoarthritis, right ankle and foot (ICD-10 - M19.071) 04/08/2024 Metatarsalgia, right foot (ICD-10 - M77.41) 04/08/2024 Raynauds disease without gangrene (ICD-10 - I73.00) 04/08/2024 Xerosis cutis (ICD-10 - L85.3) Plan Of Treatment Medication Medication Name Sig Start Date Stop Date Notes Nitro-Bid 2 % as directed Transder mal apply bid to both feet; Duration: 30 days Next Appt Details Follow Up: 3 Months, Reason: Procedure Notes * Category Sub-Category Detail Notes Keratoma Treatment Parring or Cutting o f Benign Hyperkeratotic Lesion(s) 69761 ( >4 Lesions) - The Benign hyperkeratotic lesions, as described above were pared, and/or cut utilizing a sterile #15 blade, tissue nippers, and/or dremel, Q8 Debride Nails 1-5 Procedure: Nail debrideme nt performed extensively to reduce/remove overall nail length and girth, subungual debris, and necrotic tissue, by manual and electrical means by use of a nail nipper and/or dremel, to more viable healthy nail plate or bed tissue 1-5. Silver nitrate used for any petechial bleeding as necessary. Patient chooses, no pharmaceutical tx (94597) Nail Reduction Nail Reduction Trimming of dyst rophic nails performed to reduce/remove overall nail length and girth, by manual and electrical means with use of a nail nipper and/or dremel, to more viable healthy nail plate or bed tissue 6-10 (G0127) Progress Notes * Evert DAVISONOB:[birth year] (89 yo F)Acc No.[id number]:04/08/2024 Progress Note Patient: Beena DARLING Provider: Jonathan Payan DPM :1935 A ge:88 Y S ex:Female Date:04/08/2024 Address:[address] [place] [address], [id number] Pcp:Michael Shepard Subjective: * Chief Complaints: * 1 . Painful thick toenails which are aggrevated by shoes and causes difficulty standing/walking. * HPI: P ainful Nails: Pt States Last PCP Visit: D ate: 0 04/24/2023 * ROS: G eneral/Constitutional: Nausea d enies. V omiting d enies. H aníbal Thirst d enies. L oss appetite d enies. C hills d enies. F atigue d enies.?Fever d enies. N ight Sweats d enies. U nexplained weight loss d enies. U nexplained weight gain d enies. H EENTM: Dentures d enies. D izziness d enies. G lasses/contacts a dmits. R etinopathy d enies. B lurred/double vision d enies. T MJ?denies. D ischarge/drainage d enies. I mplants d enies. S ore throat d enies. D ental implants d enies. H jimmy of hearing d enies. D ifficulty chewing/swallowing/speaking d enies. N ose bleeds d enies. S ore mouth d enies. ? R espiratory: On Oxygen d enies. P neumonia/pleurisy d enies.?Bronchitis d enies. E mphysema d enies. C oughing d enies. C ough blood?denies. S hortness of breath d enies. W heezing d enies. C ardiovascular: Pacemaker d enies. M CERAMIC PLATER d enies. W PW d enies. C HF d enies. H eart attack d enies. S eptal defect d enies. R apid beat d enies. C hest pain d enies. A trial Fib. d enies. M urmur/Palpitations d enies. G astrointestinal: Hemorrhoids d enies. S tomach/Abdominal pain d enies. D ark blood stool d enies. I rritable bowel d enies. C onstipation d enies. D iarrhea d enies. H ematology: Swelling a dmits. C lots d enies. V aricose Veins d enies. B ruising d enies. B leeding problem d enies. G enitourinary: Blood urine d enies. F requent/Painfu/urination/bladder control d enies. K idney stones d enies. I nfection (UTI) d enies. N ephropathy d enies. s ex trans dis (STD) d enies. P rostate d enies. M usculoskeletal: Hammertoes d enies. B unions d enies. B ack Pain d enies. M uscle Cramps/ Resting d enies. M uscle cramps / walking d enies.?Generalized aches and pains d enies. W eakness d enies. I nteg.: Ceballos d enies. S cars d enies. C orns/calluses?denies. I ngrown nails d enies. P ainful nails d enies. O pen Sores d enies. R ashes d enies. N eurologic: Difficulty sleeping d enies. B rain disorder d enies. N umbness d enies. B alance trouble a dmits. C onfusion d enies. F ainting/blackouts d enies. T ingling d enies. T remors d enies. * Medical History: Objective: * Vitals: * Examination: G eneral Examination: GENERAL APPEARANCE: a lert, well hydrated, in no distress , good attention to hygiene. ORIENTED: p erson,place, and time. N eurological: SENSORY: N eurological exam reveals intact sensorium, pain sensation normal, vibration sensation intact, pinprick sensation is normal in the lower extremities, Pt denies, anesthesia, burning, paresthesia, tingling, B/L. TINEL'S COMPRESSION: n egative tarsal tunnel, ángela pedis, and medial calcaneal nerves b/l. BABINSKI REFLEX: a bsent. V ascular: DP PULSES (B): 0 /4, B/L. PT PULSES (B): 0 /4, B/L. CAPILLARY FILL TIME: d elayed, all digits, B/L. TROPHIC CONDITION-TEXTURE/ELASTICITY/TURGOR/HAIR GROWTH (B):?decreased, B/L. TEMPERTURE GRADIENT (C): d ecreased, cool to cold, proximal to distal, B/L. PIGMENTATION: c yanosis. CLAUDICATION (C): n egative, b/l . REST PAIN: n egative. VARICOSITIES: p resent, moderate, nonpainful, B/L. ECTOR'S SIGN: a bsent, b/l. PALPABLE CORDS: a bsent, b/l. CLUBBING: a bsent. D ermatologic: SKIN FINDINGS: Skin exam reveals Keratotic lesion(s) located at, pl-medial both T5, TA, SUB MTH (s), 1, B/L , Heel(s), B/L dorsum T9 pipj , Plantar, T2. O rthopedic: GAIT ABNORMALITY: p ronated, abducted, b/l. TAILOR'S BUNION: P rominent, painful, inflammed 5th MTH/MPJ, B/L, Left more severe. DIGITAL DEFORMITIES: D igital contracture, PIPJ, 1-5 rt, incompl-reducable to push-up test, no over, nor underlapping. N ails: NAILS are: E longated, overgrown, dystrophic, lytic, greater than 3mm thick, discolored and friable with crumbly malodorous subungual debris, with pain on palpation, T5, T6, remaining nails are elongated, overgrown, dystrophic. Assessment: * Assessment: 1. T inea unguium - B35.1 (Primary) 2 . P ain in left foot - M79.672 ? 3 . P ain in right foot - M79.671 4 . P ain in right toe(s) - M79.674 5 . P ain in left toe(s) - M79.675 6 . U nspecified atherosclerosis of craig arteries of extremities, bilateral legs - I70.203 7 . P rimary osteoarthritis, right ankle and foot - M19.071 8 . M etatarsalgia, right foot - M77.41 9 . R aynauds disease without gangrene - I73.00 1 0. 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 Silver nitrate used for any petechial bleeding as necessary. Patient chooses, no pharmaceutical tx (94474). K eratoma Treatment: Parring or Cutting of Benign Hyperkeratotic Lesion(s) 1 1057 ( >4 Lesions) - The Benign hyperkeratotic lesions, as described above were pared, and/or cut utilizing a sterile #15 blade, tissue nippers, and/or dremel, Q8. N ail Reduction: Nail Reduction T rimming of dystrophic nails performed to reduce/remove overall nail length and girth, by manual and electrical means with use of a nail nipper and/or dremel, to more viable healthy nail plate or bed tissue 6-10 (G0127). * Procedure Codes: 1 1720 DEBRIDE NAIL, 1-5, Modifiers: XS , 36965 TRIM SKIN LESIONS, OVER 4, Modifiers: Q8 , G0127 TRIMMING DYSTROPHIC NAILS ANY #, Modifiers: Q8 * Follow Up: 3 Months * Images: * The named appointment provid er may or may not be the originator of this progress note, and it is not deemed complete until electronically signed by the appointment provider. Sign off status: Pending * Provider: Jonathan Payan DPM Date: 0 04/08/2024 Generated for Rambo alberts/Vinicius/Jose R on: 09/26/2024 05:58 PM EST History and Physical Notes * HPI (History of Present Illness) Category Sub-Category Detail Notes Category Not es Painful Nails Pt States Last PCP Visit: Date:: 04/24/2023 Examination Category Sub-Category Detail Notes Category Not es Neurological SENSORY: Neurological exa m reveals intact sensorium, pain sensation normal, vibration sensation intact, pinprick sensation is normal in the lower extremities, Pt denies, anesthesia, burning, paresthesia, tingling, B/L BABINSKI REFLEX: absent TINEL'S COMPRESSION: negative tarsal lidia shelbi, ángela pedis, and medial calcaneal nerves b/l Dermatologic SKIN FINDINGS: Skin exam reveal s Keratotic lesion(s) located at, pl-medial both T5, TA, SUB MTH (s), 1, B/L , Heel(s), B/L dorsum T9 pipj , Plantar, T2 Orthopedic GAIT ABNORMALITY: pronated, abducted, b/l DIGITAL DEFORMITIES: Digital contracture , PIPJ, 1-5 rt, incompl-reducable to push-up test, no over, nor underlapping TAILOR'S BUNION: Prominent, painful, inflammed 5th MTH/MPJ, B/L, Left more severe General Examination GENERAL APPEARANCE: alert, w ell hydrated, in no distress , good attention to hygiene ORIENTED: person,place, and ti me Vascular DP PULSES (B): 0/4, B/L PT PULSES (B): 0/4, B/L CAPILLARY FILL TIME: delayed, all digits , B/L TEMPERTURE GRADIENT (C): decreased, cool to cold, proximal to distal, B/L TROPHIC CONDITION-TEXTURE/ELASTICITY/TURGOR/HAIR GROWTH (B): decreased, B/L VARICOSITIES: present, moderate, n onpainful, B/L CLUBBING: absent CLAUDICATION (C): negative, b/l REST PAIN: negative ECTOR'S SIGN: absent, b/l PALPABLE CORDS: absent, b/l PIGMENTATION: cyanosis Nails NAILS are: Elongated, overg rown, dystrophic, lytic, greater than 3mm thick, discolored and friable with crumbly malodorous subungual debris, with pain on palpation, T5, T6, remaining nails are elongated, overgrown, dystrophic
--- NOTE | 2025-07-26 15:16 | A.OFFVIS_ITS ---
Vital Signs 07/26/25 15:18 Height 5 ft 5 in Weight 145 lb 1.027 oz BMI 24.1 BP 130/82 Blood Pressure Location Lt brachial Position Sitting Pulse 76 Pulse Source Monitor Intake Visit Reasons: r/s 05/10/25 6 mos followup Intake Note: r/s 6 mth f/up Acid Adjuster Required: No Accompanied by: Daughter Allergies meperidine (From Demerol) Allergy (Severe, Verified 05/26/25 13:00) Nausea and Vomiting amoxicillin (AMOXICILLIN) Allergy (Intermediate, Verified 05/26/25 13:00) Rash cephalexin Allergy (Intermediate, Verified 05/26/25 13:00) Itching erythromycin base Allergy (Intermediate, Verified 05/26/25 13:00) Itching meloxicam Allergy (Intermediate, Verified 05/26/25 13:00) Abdominal Pain nitrofurantoin (From Macrobid) Allergy (Intermediate, Verified 05/26/25 13:00) Rash Penicillins Allergy (Intermediate, Verified 05/26/25 13:00) Rash Sulfa (Sulfonamide Antibiotics) (SULFA(SULFONAMIDE ANTIBIOTICS)) Allergy (Intermediate, Verified 05/26/25 13:00) Rash tramadol Allergy (Intermediate, Verified 05/26/25 13:00) Nausea and Vomiting codeine (CODEINE) Adverse Reaction (Intermediate, Verified 05/26/25 13:00) Nausea Medication List - Last Reconciled 07/26/25 by Yousif Palacios MD acetaminophen (Tylenol Extra Strength) 1,000 mg PO TID albuterol sulfate 90 mcg/actuation (ProAir HFA) 2 puffs inhalation Q6H PRN alendronate 70 mg PO QWEEK amitriptyline 10 mg PO BEDTIME aspirin 81 mg PO DAILY atorvastatin 80 mg PO DAILY avacincaptad pegol (PF) (Izervay (PF)) 2 mg intravitreal QMONTH beclomethasone dipropionate 40 mcg/actuation (Qvar RediHaler) 1 inh inhalation BID blood pressure monitor As directed calcium carbonate-vitamin D3 600 mg-5 mcg (200 unit) 1 tab PO BEDTIME ceramides 1,3,6-II (CeraVe topical cream) 1 appl topical 5XD PRN cholecalciferol (vitamin D3) 25 mcg PO DAILY cyanocobalamin (vitamin B-12) 1,000 mcg PO DAILY diphenhydramine HCl (Benadryl) 25 mg PO DAILY PRN donepezil 5 mg PO DAILY 90 days doxycycline hyclate 100 mg PO .prn epoetin kamilah-epbx (Retacrit) units subcut ONCE PRN ferrous sulfate 325 mg PO Q OTHER DAY fexofenadine 180 mg PO BEDTIME fluticasone propionate 220 mcg/actuation 2 puffs inhalation BID cddaplwq-dmsvy-wrfxh-CF borate 750 mg-100 mg- 1.65 mg-108 mg ([facility]) 1 tab PO BID lidocaine 4% 1 patch topical DAILY PRN lisinopril 5 mg PO DAILY lorazepam 0.5 mg PO BEDTIME PRN metoprolol succinate ER 50 mg PO DAILY metoprolol tartrate 25 mg PO BID mirtazapine 7.5 mg PO BEDTIME ondansetron 4 mg PO Q8H pyridoxine (vitamin B6) 100 mg PO DAILY simvastatin 10 mg PO DAILY vit C,O-Ir-giwgx-lutein-zeaxan 250-90-40-1 mg (PreserVision AREDS-2) 1 tab PO BID HPI Comments Details: 89-year-old female here for follow-up. She had severe aortic stenosis as well as multivessel disease. 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 She has severe ramus intermedius stenosis which was treated with drug- eluting stent. There is some error in the cardiac catheterization report showing that this is bare metal stent but in fact she had a drug-eluting stent. After that she was taken for transcatheter aortic valve replacement by Dr. Zelaya. She has been doing well since then. She has no chest pain or shortness of breath. 05/18/2023: She returns for follow-up. She is accompanied by her daughter. She is saying that she is not feeling well today. Very fatigued and tired suddenly. Her appetite was okay and she ate a breakfast. She has been experiencing off and on lower abdominal pain. No cough or phlegm production currently. No fevers reported by her. No bleeding concerns. Taking medications regularly. 10/26/2024: She is here for follow-up. She is complaining of fatigue and gets out of breath easily. She does not do any significant activities at home. She also has anemia and is getting Procrit. No bleeding. 07/26/2025: She is here for follow-up. Denying any chest discomfort or shortness of breath. Her main complaint is right shoulder pain and abdominal pain likely due to constipation. She has been using iron 3 times a week. The daughter is saying that she is using rwhu-pwm-xyajvao stool softener. FOR[facility]LY [facility], [facility] Medical History PONV (postoperative nausea and vomiting) COPD (chronic obstructive pulmonary disease) CHF (congestive heart failure) Macular degeneration Dementia HTN (hypertension) Breast cancer Atherosclerotic cardiovascular disease Coronary artery disease Anemia Aortic stenosis, severe Primary osteoarthritis involving multiple joints Osteoporosis Benign essential HTN Asthma Allergic rhinitis Surgical History History of acute cholecystitis S/P TAVR (transcatheter aortic valve replacement) S/P cardiac catheterization History of hand surgery History of heart artery stent History of laminectomy History of kyphoplasty History of cataract surgery History of D&C Family History Father Hypertension Mother Thyroid cancer Sister Breast cancer Social History Household Members: None Household Members Other:: assisted living [facility] Housing: Assisted Living Facility Housing Other:: [facility] Are you a primary ocular care technician to a significant other at home: No Do you presently have visiting nurse or other home services: No Alcohol intake: current Alcohol intake frequency: holidays/special occasions only Alcohol type: beer and wine Patient Tobacco Use Status: Former Tobacco user Tobacco use type: Cigarette Years Smoked: 5 e-Cigarette/Vaping Use: Never Used Second Hand Smoke Exposure: Yes Advance Directives Date on File: 02/06/21 service: No Current occupational status: retired Cognitive needs: Yes (walker/cane) Hearing needs: Yes (hearing aide) Vision needs: Yes (glasses) Review of Systems Const Denies chills, Denies fatigue, Denies fever(s), Denies frequent falls, Denies weakness, Denies weight gain and Denies weight loss ENT Denies dizziness Card Denies chest pain, Denies leg edema, Denies lightheadedness, Denies palpitations, Denies dyspnea and Denies dyspnea on exertion Resp Denies cough, Denies dyspnea and Denies dyspnea on exertion GI Denies hematochezia Musc Denies abnormal gait, Denies muscle weakness, Denies numbness, Denies radiating pain into limb and Denies tingling Neuro Denies abnormal gait, Denies dizziness, Denies frequent falls, Denies numbness, Denies tingling and Denies weakness Endo Denies fatigue and Denies palpitations Physical Exam Vital Signs: Last Vital Signs Pulse 76 07/26/25 15:18 BP 130/82 07/26/25 15:18 BMI result Body Mass Index 24.1 GENERAL APPEARANCE: Pleasant. NECK: no carotid bruit, no jugular venous distention. SKIN: no suspicious lesions, warm and dry. HEART: systolic murmur, regular rate and rhythm. LUNGS: Clear to auscultation bilaterally. ABDOMEN: soft, nontender. EXTREMITIES: no edema. PERIPHERAL PULSES: equal. NEUROLOGIC: No gross deficits, AAO X 3 Office Procedures EKG Details: Sinus rhythm 76 beats per minute, left axis deviation, poor R-wave progression, left ventricular hypertrophy, QTC 441 milliseconds. 20164-Uglqppwqdgwnxfknw, Complete Assessment & Plan Assessment & Plan (1) Chronic diastolic heart failure: Code(s): I50.32 - Chronic diastolic (congestive) heart failure Category: Medical (2) S/P TAVR (transcatheter aortic valve replacement): Comment: 2020 Code(s): Z95.2 - Presence of prosthetic heart valve Category: Surgical (3) Coronary artery disease: Comment: w/stent 2020 Code(s): I25.10 - Atherosclerotic heart disease of [place] coronary artery without angina pectoris Category: Medical Plan Pleasant 89-year-old female who is here for follow-up she has history of coronary disease status post PCI and severe aortic valve stenosis status post transcatheter aortic valve replacement. Denying any chest discomfort shortness of breath. Not in heart failure. Her complaints are mostly related to abdominal pain due to constipation as well as musculoskeletal pains at this point. On baby aspirin. No bleeding issues. She has chronic anemia and has been using iron. She takes doxycycline before dental workup for endocarditis prophylaxis. Follow up in 6 months. Thank you for allowing me to participate in the care of your patient. Please feel free to contact me if you have any questions. Coding Level of Care Code Est Pt Level 4 (74737) Diagnoses Chronic diastolic heart failure I50.32 S/P TAVR (transcatheter aortic valve replacement) Z95.2 Coronary artery disease I25.10 CPT Codes EKG - CPT: 01100-Zxldrpsrganaaiyxe, Complete ([id number])
[2025-07-26 15:18] VITALS: BP 130/82; PULSE 76; BMI 24.1
--- OUTSIDE RECORDS SUMMARY | 2025-07-26 17:58 | XMS_ITS | Patient Health Record ---
Author Organization [facility] Address [address] [place] [address] Care Team Providers Care Aluminum Welder Name Role Phone Michael Shepard Primary Care Provider Rinku Paula [phone] Allergies Allergen (clinical drug ingredient) Drug/Non Drug [...] Risk Notes Problem Pain in right foot (569571896488209) Pain in right foot (M79.671) Active confirmed Problem Bilateral atherosclerosis of arteries of lower limbs (disorder) (90570371928699463 ) Unspecified atherosclerosis of [place] arteries of extremities, bilateral legs (I70.203) Active confirmed Problem Localized, primary osteoarthritis of the ankle and/or foot (429916637) Primary osteoarthritis, right ankle and foot (M19.071) Active confirmed Problem Raynaud's disease (958109893) Raynauds disease without gangrene (I73.00) Active confirmed Plan Of Treatment Pending Test Test Name Order Date X ray : Foot, left 3V 08/15/2013 X ray : Foot, right 3V 08/15/2013 X ray : Foot, right 3V 08/04/2019 33683-USNQLEN NAIL, 08-2808/15/2013 18800-PWSVNQC NAIL, 08-2811/03/2013 91915-CZCHEUX NAIL, 08-2801/12/2014 04083-MKBTKEY NAIL, 08-2804/12/2014 62984-KPEETXI NAIL, 08-2807/13/2014 18341-MOHAKIM NAIL, 08-2810/16/2014 70897-OPALLPS NAIL, 08-2801/17/2015 23590-GEJXYBA NAIL, 08-2807/02/2015 36700-YJMFMBB NAIL, 08-2809/26/2015 13796-ZALWNLK NAIL, 08-2812/26/2015 78421-RFHXLFD NAIL, 08-2804/05/2015 25925-FBEREEP NAIL, -03/26/2016 36012-HBLXBOY NAIL, -06/25/2016 51130-VNSLYWG NAIL, -10/01/2016 81030-OUCRWVW NAIL, -03/26/2017 37474-PWWDMRZ NAIL, -05/28/2017 22463-CEGLORD NAIL, -07/30/2017 65119-IFINLBU NAIL, -10/01/2017 85711-UFEUWQS NAIL, -12/03/2017 07019-CCUNRFJ NAIL, -02/10/2018 79471-ARHAUZT NAIL, 08-2805/05/2018 79141-ZEYHWSV NAIL, 08-2808/05/2018 13785-Hypn Destruction, 09-0605/05/2018 53392-Ckqn Destruction, 09-0603/26/2016 40894-Nhfp Destruction, -04/05/2015 52616-Jjui Destruction, 09-0612/26/2015 09140-Whyb Destruction, 09-0609/26/2015 47438-Ipox Destruction, -07/02/2015 28196-Pyna Destruction, 09-0601/17/2015 23311-Feyd Destruction, 09-0610/16/2014 07667-Asjy Destruction, 09-0607/13/2014 20582-Uywi Destruction, 09-0604/12/2014 55439-Knnw Destruction, 09-0601/12/2014 30281-Ooyd Destruction, -12/30/2012 76552-Ikov Destruction, 09-0602/02/2013 12742-Vwge Destruction, 09-0603/09/2013 75504-Iuqt Destruction, 09-0608/05/2018 80485-Mynelfhu Plate 07/13/2014 96591- Debride <25 sq cm 10/23/2017 53016-HTRC SKIN LESIONS, OVER 4 12/04/19 18 10431-OQSH SKIN LESIONS, OVER 4 10/01/19 18 53400-OYFU SKIN LESIONS, OVER 4 02/11/20 18 36177-DNZR SKIN LESIONS, OVER 4 08/05/20 18 49884-ONZX SKIN LESIONS, OVER 4 05/28/20 17 08431-FKTQ SKIN LESIONS, OVER 4 07/30/20 17 23560-SUBH SKIN LESIONS, OVER 4 10/01/19 17 88579-KYBE SKIN LESIONS, OVER 4 06/25/20 16 07769-AXQL SKIN LESIONS, OVER 4 01/02/20 17 00541-SYDP SKIN LESIONS, OVER 4 03/26/20 16 31212-TVGQ SKIN LESIONS, OVER 4 03/26/20 17 97634-UTDG SKIN LESIONS, OVER 4 11/05/19 19 79856-SFFG SKIN LESIONS, OVER 4 02/04/20 19 11853-GBXQ SKIN LESIONS, OVER 4 05/05/20 19 11436-DTIV SKIN LESIONS, OVER 4 08/04/20 19 79929-GJEV SKIN LESIONS, OVER 4 11/03/19 20 49869-QGQF SKIN LESIONS, OVER 4 05/24/20 20 08558-DAKI SKIN LESIONS, OVER 4 09/03/19 21 64853-XUFP SKIN LESIONS, OVER 4 12/20/19 21 71125-VTGE SKIN LESIONS, OVER 4 03/26/20 21 06442-BCZM SKIN LESIONS, OVER 4 06/13/20 21 67432-JCXL SKIN LESIONS, OVER 4 09/05/19 22 91347-BXLY SKIN LESIONS, OVER 4 12/06/19 22 45701-JYCZ SKIN LESIONS, OVER 4 05/05/20 18 95190-PJUT SKIN LESIONS, 2 TO 4 07/02/20 15 65394-MWHW SKIN LESIONS, 2 TO 4 09/26/19 16 49803-PHBQ SKIN LESIONS, 2 TO 4 12/26/19 16 13609-EHHF NAIL(S) 12/26/2015 60314-AEPW NAIL(S) 03/26/2016 89595-YAJT NAIL(S) 09/26/2015 52850-PCEL NAIL(S) 07/02/2015 97988-LNIR NAIL(S) 01/01/2017 84180-LRPW NAIL(S) 06/25/2016 22133-PMWN NAIL(S) 10/01/2016 37063-NVUY NAIL(S) 07/30/2017 76486-YNIA NAIL(S) 05/28/2017 99481-VJBD NAIL(S) 03/26/2017 15049-GGKZ NAIL(S) 12/03/2017 59474-QMJV NAIL(S) 10/01/2017 S0140-CORNLSMD DYSTROPHIC NAILS ANY # T5228-XPAPGZMX DYSTROPHIC NAILS ANY # S4918-GPPGLFWZ DYSTROPHIC NAILS ANY # G5417-VBMPLDFZ DYSTROPHIC NAILS ANY # A1570-DXGVULPT DYSTROPHIC NAILS ANY # P4212-FETXFEFA DYSTROPHIC NAILS ANY # F6679-SANWKUHS DYSTROPHIC NAILS ANY # J7386-ZZKKSAGU DYSTROPHIC NAILS ANY # C0643-CWBFDVHI DYSTROPHIC NAILS ANY # S5943-NGVSURVC DYSTROPHIC NAILS ANY # C8845-PUVXHOGT DYSTROPHIC NAILS ANY # Y5376-OVKWVCER DYSTROPHIC NAILS ANY # M3371-MZHYBLRZ DYSTROPHIC NAILS ANY # B2335-WWRHIPFW DYSTROPHIC NAILS ANY # X3966-IIVHJMCP DYSTROPHIC NAILS ANY # 53476-GQXMTREZ OF HEMATOMA/FLUID 018 88124, J0702- Neuroma/Injection 09/15/19 14 Insurance Providers Payer Name Payer Address Payer Phone Subscriber Number Group Number Insured Name Patient Relationship to Insured Coverage Start Date Coverage End Date [facility] [address] [place] [address] [phone] [id number] Dav[place] Beena Self - patient is [...] Hospitalization History Reason Date(Month/Year) [facility]-Heart Attack 11/22/20 [facility] [place] 01/2021 [facility] Issues Rehab few d ays 10/2020,11/2020 [facility]- admitted for stomache issues. 8 Patient was admitted to [facility] for COPD. -09/22/12
--- OUTSIDE RECORDS SUMMARY | 2025-07-26 17:58 | XMS_ITS | Clinical Summary ---
Author Organization [facility] Address [address] [place] [address] Care Team Providers Care Personal Caregiver Name Role Phone Pcp, No Primary Care [...] es 65 and older) 2001 RSV Vaccine 50 years and old er and Patients (1 - 1-dose 75+ series) 2011 Influenza Vaccine 03/24/2025 05/22/2021 COVID-19 Vaccine (2 - 2024-2 6 season) 2025 10/22/2020 Hepatitis B Vaccines Aged Out No long er eligible based on patient's age to complete this topic [place] [address] [address] [place] [address] OUT OF [facility] - HMO Care Teams Personal Caregiver Relationship Specialty Start Date End Date Pcp, No PCP - General General Medicine 11/18/22
--- OUTSIDE RECORDS SUMMARY | 2025-07-26 17:58 | XMS_ITS | Clinical Summary ---
Author Organization [facility] Prior to 01/21/[address] [place] [address] Care Team Providers Care Depilatory Painter Name Role Phone Michael Shepard MD Primary [...] age to complete this topic Care Teams Depilatory Painter Relationship Specialty Start Date End Date Michael Shepard MD [address] [place] [address] Dr Carpio [address] [place] [address] [place] [address] PCP - General Internal Medicine 10/26/20
== END 2025-07-26 15:49 | disposition home or self-care (01) ==
LOC: HO.HCS 14:57
PROVIDERS: Visit Provider Internal Medicine Cardiovascular Disease
DX: I50.32 Chronic diastolic (congestive) heart failure (principal); Z95.2 Presence of prosthetic heart valve; I25.10 Atherosclerotic heart disease of native coronary artery without angina pectoris
CPT/HCPCS: 93010; 99214

== ENCOUNTER → 2025-07-26 14:56 | Outpatient (BNVA) | payer BC, SELFPAY | PROVIDERS: Visit Provider Internal Medicine Cardiovascular Disease | DX: I11.0 Hypertensive heart disease with heart failure (principal); I50.32 Chronic diastolic (congestive) heart failure; Z87.891 Personal history of nicotine dependence; Z95.2 Presence of prosthetic heart valve; I25.10 Atherosclerotic heart disease of native coronary artery without angina pectoris; I25.83 Coronary atherosclerosis due to lipid rich plaque; Z13.89 Encounter for screening for other disorder | CPT/HCPCS: 93005 ==

== ENCOUNTER 2025-08-16 14:40 | Outpatient (AMB) | payer BC, SELFPAY ==
--- OUTSIDE RECORDS SUMMARY | 2024-04-08 08:00 | XMS_ITS ---
Author Organization [facility] Yany eduardo [place] Address [address] [place] [address] Care Team Providers Care Frontload Driver Name Role Phone Drea, Kartik Primary Care Provider Rinku Paula Unavailable [phone] REASON FOR VISIT Painful thick toenails which are aggrevated by shoes and causes difficulty standing/walking Medications Medication SIG (Take, Route, Frequency, Duration) Notes Start Date End Date Status Nitro-Bid 2 % as directed Transder mal apply bid to both feet; Duration: 30 days Act joey Encounters Encounter Location Date Provider [facility] [address] [address] 04/08/2024 Rinku Paula Tinea unguium B35.1 ; Pain in left foot M79.672 ; Pain in right foot M79.671 ; Pain in right toe(s) M79.674 ; Pain in left toe(s) M79.675 ; Unspecified atherosclerosis of [place] arteries of extremities, bilateral legs I70.203 ; [...] (ICD-10 - M79.675) 04/08/2024 Unspecified atherosclerosis of [place] arteries of extremities, bilateral legs (ICD-10 - [...] or Cutting o f Benign Hyperkeratotic Lesion(s) 57998 ( >4 Lesions) - The Benign hyperkeratotic [...] as necessary. Patient chooses, no pharmaceutical tx (71005) Nail Reduction Nail Reduction Trimming of dyst rophic nails performed to reduce/remove overall nail length and girth, by manual and electrical means with use of a nail nipper and/or dremel, to more viable healthy nail plate or bed tissue 6-10 (G0127) Progress Notes * Evert DAVISONOB:[birth year] (89 yo F)Acc No.[id number]:04/08/2024 Progress Note Patient: Beena DARLING Provider: Jonathan Payan DPM :1935 A ge:88 Y S ex:Female Date:04/08/2024 Address:[address] [place] [address], [id number] Pcp:Michael Shepard Subjective: * Chief Complaints: * [...] enies. C ardiovascular: Pacemaker d enies. M REGISTERED CLIENT ASSOCIATE d enies. W PW d enies. C [...] M79.675 6 . U nspecified atherosclerosis of [place] arteries of extremities, bilateral legs - I70.203 [...] as necessary. Patient chooses, no pharmaceutical tx (17893). K eratoma Treatment: Parring or Cutting of [...] 1720 DEBRIDE NAIL, 1-5, Modifiers: XS , 49759 TRIM SKIN LESIONS, OVER 4, Modifiers: Q8 [...] 04/08/2024 Generated for Rambo alberts/Vinicius/Jose R on: 10/17/2024 02:44 PM EST History and Physical Notes * [...]
--- OUTSIDE RECORDS SUMMARY | 2025-08-16 14:44 | XMS_ITS | Encounter Summary ---
Author Organization [facility] Address [address] [place] [address] Phone Care Team Providers Care Paint Dipper Name Role Phone Michael Shepard MD Primary Care Provider + Encounter Details Date Type Department Care Team (Late st Contact Info) Description 02/03/2022 Telephone [facility] [address] [place] [id number] Napoleon Schulz MD [address] [place] [address], [address] [place] [address] Social History Tobacco Use Types Packs/Day Years [...] bladder, please call Marilee Uribe daughter at [phone] * Telephone Encounter - Shonna Orr - 02/04/2022 11:05 AM EDT Called pt advised order sent to [facility] for urine and a urine culture, is there anything else you wouldlike to add * Telephone Encounter - Kacie Gunn - 02/03/2022 4:22 PM EDT Pt called she thinks she has a bladder infection because she is having a lot of pain urinating. This started Thursday night and has gotten progressively worse. Please call her back at [phone] Thank you documented in this encounter Plan of Treatment Upcoming Encounters Date Type Department Care Team (Late st Contact Info) Description 09/14/2025 3:00 PM EST Clinical Support [facility] [address] [address] 01/02/2026 3:00 PM EDT Office Visit [facility] [address] [address] Shonna Pavon ARNP [address] [address] documented as of this encounter Procedures Procedure Name Priority Date/Time Associated Diagnosis Comments URINALYSIS WITH MICROSCOPIC Routine 02/04/2022 1:39 PM EDT Acute pyelonephritis URINE CULTURE Routine 02/04/2022 1:39 PM EDT Acute pyelonephritis documented in this encounter Results * Urine culture (02/04/2022 1:39 PM EDT) Specimen Description See Comment See Comment See Comment See Comment [facility] Comment: URINE CLEAN CATCH/MIDSTREAM NONE >100,000 COL/ML GROUP B BETA HEMOLYTIC STREPTOCOCCI ISOLATED. SUSCEPTIBILITY TESTING NOT ROUTINELY PERFORMED ON THIS ISOLATE. FINAL 02/05/2022 Testing performed or reported by [facility], a Service of [facility], [address] [place] [address] [place] [address] Kaushal Amin MD, Co Op [facility]# [id number] Urine specimen (specimen) Urine specimen obtained by clean catch procedure / Unknown 02/04/2022 1:39 PM EDT 02/04/2022 1:40 PM EDT Napoleon Schulz MD LAB URINE ORDERABLES Final Re sult [facility] * (ABNORMAL) Urinalysis with microscopic (02/04/2022 1:39 PM EDT) Appearance LIGHT YELLOW [facility] Comment:CLEAR Specific [place] 1.018 (1.002-1. 030) [facility] pH Urine 6.0 [...] /HPF [facility] RBC, Urine 2 (0-3) /HPF [facility] Bacteria SLIGHT(A) (NEG) HPF [facility] Squamous Epithelial, Urine 3 (0-8) /HPF [facility] Comment: Testing performed or reported by [facility], a Service of [facility], [address] [place] [address] Alex León MD, Co Op [facility]# [id number] Urine specimen (specimen) Urine specimen obtained by clean catch procedure / Unknown 02/04/2022 1:39 PM EDT 02/04/2022 1:40 PM EDT us Napoleon Schulz MD LAB URINE ORDERABLES Final Re sult [facility] documented in this encounter Visit Diagnoses Diagnosis Acute pyelonephritis- Primary documented in this encounter Care Teams Paint Dipper Relationship Specialty Start Date End Date Michael Shepard MD [address] [place] [address] PCP - General 08/24/20 documented as of this encounter
--- OUTSIDE RECORDS SUMMARY | 2025-08-16 14:44 | XMS_ITS | Patient Health Record ---
Author Organization [facility] Address [address] [facility] [place] [address] Care Team Providers Care Pickling Drum Operator Name Role Phone Michael Shepard Primary Care Provider Rinku Paula [phone] Allergies Allergen (clinical drug ingredient) Drug/Non Drug [...] Risk Notes Problem Pain in right foot (671747584980134) Pain in right foot (M79.671) Active confirmed Problem Bilateral atherosclerosis of arteries of lower limbs (disorder) (58003534594510622 ) Unspecified atherosclerosis of soboba arteries of extremities, bilateral legs (I70.203) Active confirmed Problem Localized, primary osteoarthritis of the ankle and/or foot (836770548) Primary osteoarthritis, right ankle and foot (M19.071) Active confirmed Problem Raynaud's disease (922005186) Raynauds disease without gangrene (I73.00) Active confirmed Plan Of Treatment Pending Test Test Name Order Date X ray : Foot, left 3V 08/15/2013 X ray : Foot, right 3V 08/15/2013 X ray : Foot, right 3V 08/04/2019 27495-YHMVANA NAIL, 08-2808/15/2013 47704-YDTHZVG NAIL, 08-2811/03/2013 53907-NWOMDIX NAIL, 08-2801/12/2014 04966-OTLDMVY NAIL, 08-2804/12/2014 03462-MFGHHWZ NAIL, 08-2807/13/2014 19731-YNSOVPG NAIL, 08-2810/16/2014 70303-DZHDHDB NAIL, 08-2801/17/2015 22947-COXKKYW NAIL, 08-2807/02/2015 19959-OSQPBVC NAIL, 08-2809/26/2015 19109-CKHRNMZ NAIL, 08-2812/26/2015 76436-IDLOUDN NAIL, 08-2804/05/2015 80164-MVHUOZS NAIL, -03/26/2016 83605-NWMKQCO NAIL, -06/25/2016 69277-HIBDCCK NAIL, -10/01/2016 10048-JTFUCWQ NAIL, -03/26/2017 30657-RXQJAET NAIL, -05/28/2017 76964-GNOGWHX NAIL, -07/30/2017 92361-CIOOJNH NAIL, -10/01/2017 47668-RNKRTLZ NAIL, -12/03/2017 21607-ARIEMJK NAIL, -02/10/2018 55852-YYTEDLD NAIL, 08-2805/05/2018 22100-ZSEKRPN NAIL, 08-2808/05/2018 62477-Qvhw Destruction, 09-0605/05/2018 87359-Nxkr Destruction, 09-0603/26/2016 90098-Uouw Destruction, -04/05/2015 09632-Dpho Destruction, 09-0612/26/2015 39051-Qvzs Destruction, 09-0609/26/2015 32612-Xrlr Destruction, -07/02/2015 38960-Flvq Destruction, 09-0601/17/2015 26700-Nwlw Destruction, 09-0610/16/2014 70053-Ntlo Destruction, 09-0607/13/2014 91086-Dxep Destruction, 09-0604/12/2014 87629-Xdjc Destruction, 09-0601/12/2014 63587-Fyyx Destruction, -12/30/2012 50607-Tpgn Destruction, 09-0602/02/2013 38173-Dvrv Destruction, 09-0603/09/2013 84494-Oron Destruction, 09-0608/05/2018 02576-Maopxyqs Plate 07/13/2014 07339- Debride <25 sq cm 10/23/2017 53935-SSBY SKIN LESIONS, OVER 4 12/04/19 18 04560-ERVM SKIN LESIONS, OVER 4 10/01/19 18 28598-MUYM SKIN LESIONS, OVER 4 02/11/20 18 06441-TAFH SKIN LESIONS, OVER 4 08/05/20 18 49548-RZKL SKIN LESIONS, OVER 4 05/28/20 17 48122-CNJU SKIN LESIONS, OVER 4 07/30/20 17 67568-EFSG SKIN LESIONS, OVER 4 10/01/19 17 72490-SBCT SKIN LESIONS, OVER 4 06/25/20 16 79608-BZAU SKIN LESIONS, OVER 4 01/02/20 17 20808-WVRU SKIN LESIONS, OVER 4 03/26/20 16 56399-GIIS SKIN LESIONS, OVER 4 03/26/20 17 43838-VHTI SKIN LESIONS, OVER 4 11/05/19 19 05974-OOCN SKIN LESIONS, OVER 4 02/04/20 19 26770-KVKT SKIN LESIONS, OVER 4 05/05/20 19 27106-ZFFE SKIN LESIONS, OVER 4 08/04/20 19 34381-PBZD SKIN LESIONS, OVER 4 11/03/19 20 21264-QIOM SKIN LESIONS, OVER 4 05/24/20 20 90497-JSPR SKIN LESIONS, OVER 4 09/03/19 21 67947-HPKX SKIN LESIONS, OVER 4 12/20/19 21 31987-FTPY SKIN LESIONS, OVER 4 03/26/20 21 07783-QUEG SKIN LESIONS, OVER 4 06/13/20 21 88178-IDSC SKIN LESIONS, OVER 4 09/05/19 22 91368-ZFDT SKIN LESIONS, OVER 4 12/06/19 22 37297-HGJK SKIN LESIONS, OVER 4 05/05/20 18 34530-OWBS SKIN LESIONS, 2 TO 4 07/02/20 15 32701-SZUA SKIN LESIONS, 2 TO 4 09/26/19 16 15476-BEUQ SKIN LESIONS, 2 TO 4 12/26/19 16 19801-OOTK NAIL(S) 12/26/2015 56261-OPRW NAIL(S) 03/26/2016 25661-HJUB NAIL(S) 09/26/2015 42518-CSZY NAIL(S) 07/02/2015 05242-WYJR NAIL(S) 01/01/2017 11373-KUNN NAIL(S) 06/25/2016 67489-RYJP NAIL(S) 10/01/2016 54109-RUKU NAIL(S) 07/30/2017 91236-KONN NAIL(S) 05/28/2017 17387-FXLA NAIL(S) 03/26/2017 68376-VBIP NAIL(S) 12/03/2017 05037-VOKP NAIL(S) 10/01/2017 K5447-HMVAPVXX DYSTROPHIC NAILS ANY # M7981-INCXMUPK DYSTROPHIC NAILS ANY # V9996-ZBUZLNOT DYSTROPHIC NAILS ANY # A3862-KCKFLHMT DYSTROPHIC NAILS ANY # Z1437-FXUKNXSM DYSTROPHIC NAILS ANY # Y4986-KTQGCDVG DYSTROPHIC NAILS ANY # A5704-FKKWLLSS DYSTROPHIC NAILS ANY # K1823-CEDFMWEG DYSTROPHIC NAILS ANY # N8819-GARMQYRC DYSTROPHIC NAILS ANY # I2604-BZEFQHKV DYSTROPHIC NAILS ANY # K7370-EFUKGWIJ DYSTROPHIC NAILS ANY # P6767-AYFBFBBJ DYSTROPHIC NAILS ANY # Z4416-JZUUEGUQ DYSTROPHIC NAILS ANY # C7009-KREYWIDC DYSTROPHIC NAILS ANY # A5648-AVVLYQQY DYSTROPHIC NAILS ANY # 57021-TQBMMEZO OF HEMATOMA/FLUID 018 10331, J0702- Neuroma/Injection 09/15/19 14 Insurance Providers Payer Name Payer Address Payer Phone Subscriber Number Group Number Insured Name Patient Relationship to Insured Coverage Start Date Coverage End Date [facility] [address] [place] [address] [phone] [id number] Davison Beena Self - patient is [...] Hospitalization History Reason Date(Month/Year) [facility]Heart Attack 11/22/20 [facility] -gallbladder isuues 01/2021 [facility]/ [facility] - Heart Issues Rehab few d ays 10/2020,11/2020 [facility]- admitted for stomache issues. 8 Patient was admitted to [facility] for COPD. -09/22/12
--- OUTSIDE RECORDS SUMMARY | 2025-08-16 14:44 | XMS_ITS | Clinical Summary ---
Author Organization [facility] Address [address] [address] Phone Care Team Providers Care Baggage Checker Name Role Phone Michael Shepard MD Primary [...] comments) 09/05/2021 Tramadol 01/04/2021 Hydrocodone-Acetaminophen 01/04/2021 Medications amitriptyline (ELAVIL) 10 MG tablet Active acetaminophen (TYLENOL) 500 MG tablet Take by mouth 3 times a day Active calcium carbonate (OS-JOSE JUAN) 600 MG tablet Take 600 mg by mouth 1 (one) time each day Active cyanocobalamin (VITAMIN B-12) 1000 MCG tablet Take 100 mcg by mouth 1 (one) time each day Active pyridoxine (VITAMIN B-6) 100 MG tablet Take 100 mg by mouth 1 (one) time each day Active aspirin EC 81 MG EC tablet TAKE 1 TABLET BY MOUTH EVERY DAY Active glucosamine-cho ndroitin 500-400 MG tablet Take [...] FEXOFENADINE HCL PO Take by mouth Active metoprolol succinate XL (TOPROL XL) 50 MG 24 hr tablet Take 50 mg by mouth 1 (one) time each day Do not crush or chew. Active Cholecalciferol (Vitamin D) 25 MCG (1000 UT) tablet Take 1,000 mg by mouth 1 (one) time each day Active donepezil (ARICEPT) 5 MG tablet Take 5 mg by mouth every night 5 Active Hospital, Clinic, or Other Facility Administered Medication Ordered Dose Route Frequency Start Date End Date Status Epoetin Mickey-epbx solution 20,000 UnitsIndications:Chronic kidney disease, stage 2 (mild),Anemia in chronic kidney disease 57325 Units IJ Every 14 days 05/31/2021 Active Epoetin Mickey-epbx solution 30,000 UnitsIndications:Anemia in chronic kidney disease 37436 Units IJ Once 08/08/2021 Active Active Problems Problem Noted Date Diagnosed Date Hypo-osmolality and hyponatremia 01/03/2025 Stage 3a chronic kidney disease 07/06/2024 Anemia 12/12/2021 Arthritis 12/12/2021 Atherosclerosis of [place] ir[place] arteries of the extrem ities 12/12/2021 Congestive [...] Encounters Date Type Department Care Team Description 08/03/2025 3:00 PM EST Clinical Support [facility] [address] [phone] Anemia in chronic kidney disease (Primary Dx) 07/03/2025 3:15 PM EST Office Visit [facility] [address] [phone] Shonna Pavon ARNP Stage 3a chronic kidney disease (HCC) (Primary Dx); Anemia in chronic kidney disease; Hypertensive disorder 06/11/2025 Orders Only [facility] [address] [phone] Shonna Pavon ARNP Stage 3a chronic kidney disease (HCC); Hypertensive disorder; Anemia in chronic kidney disease; Hypo-osmolality and hyponatremia 06/08/2025 2:00 PM EDT Clinical Support [facility] [address] [phone] Anemia in chronic kidney disease (Primary Dx) 06/01/2025 Orders Only [facility] [address] [phone] Shonna Pavon ARNP 06/01/2025 Orders Only [facility] [address] [phone] Shonna Pavon ARNP from Last 3 Months Immunizations Immunization Administration Dates Next Due Influenza, Unspecified 05/22/2021 Moderna SARS-COV-2 10/22/2020 Family History Medical History Relation Comments Heart disease Father Cancer Mother Heart disease Sister Stroke Sister Relation Status Comments Father Mother Sister Social History Tobacco Use Types Packs/Day Years [...] Reading Time Taken Comments Blood Pressure 120/60 08/03/2025 4:15 PM EST Pulse 61 07/03/2025 3:23 PM EST Temperature - - Respiratory Rate - - Oxygen Saturation 98% 07/03/2025 3:23 PM EST Inhaled Oxygen Concentration - - Weight 68.5 kg (151 lb) 07/03/2025 3:23 PM EST Height 165.1 cm (5' 5 ) 12/12/2021 3:20 PM EDT Body Mass Index 25.13 12/12/2021 3:20 PM EDT Plan of Treatment Upcoming Encounters Date Type Department Care Team (Late st Contact Info) Description 09/14/2025 3:00 PM EST Clinical Support [facility] [address] [place] [phone] 01/02/2026 3:00 PM EDT Office Visit [facility] [address] [phone] Shonna Pavon ARNP [address] [place] [phone] Health Maintenance Due Date Last Done Comments Influenza Vaccine (#1) 2025 , 07/31/2023, 05/22/2021, Additional history exists Pneumococcal Vaccine: 50+ Years Completed 09/26/2019, 12/16/2017, 01/29/2016, Additional history exists Hepatitis B Vaccine Aged Out No longe r eligible based on patient's age to complete this topic Procedures Procedure Name Priority Date/Time Associated Diagnosis Comments POCT HEMOGLOBIN Routine 08/03/2025 4:14 PM EST Anemia in chronic kidney disease PTH, INTACT Routine 06/01/2025 12:00 AM EDT SPECIMEN STATUS REPORT Routine 06/01/2025 12:00 AM EDT PTH, INTACT Routine 06/01/2025 12:00 AM EDT PROTEIN / CREATININE RATIO, URINE Routine 06/01/2025 12:00 AM EDT URINE ALBUMIN / CREATININE RATIO Routine 06/01/2025 12:00 AM EDT CBC Routine 06/01/2025 12:00 AM EDT RENAL FUNCTION PANEL Routine 06/01/2025 12:00 AM EDT from Last 3 Months Results * POCT hemoglobin (08/03/2025 4:14 PM EST) Hemoglobin 11.1 Blood Capillary 08/03/2025 4 :14 PM EST Adarsh Puentes MD POINT OF CARE TEST ORDERABLES Final Result * Protein, Total, Random Urine w/Creatinine (Protein/Creat Ratio) (06/01/2025 12:00 AM EDT) Protein, Ur 9.1 Not Estab. mg/dL [facility] Urine Protein/Creatin ine Ratio 163 0 - 200 mg/g creat [facility] 06/01/2025 06/01/2025 Shonna OJEDA LAB URINE ORDERABLES Final Result [facility] [address] [place] [address] * Urine Albumin / Creatinine Ratio (06/01/2025 12:00 AM EDT) Creatinine, Ur 56.0 Not Estab. mg/dL [facility] Albumin, Urine 5.4 Not Estab. ug/mL [facility] Albumin/Creatin ine Ratio 10 0 - 29 mg/g creat [facility] Comment: Normal: 0 - 29 Moderately increased: 30 - 300 Severely increased: >300 06/01/2025 06/01/2025 Shonna [facility] LAB URINE ORDERABLES Final Result Performing Organization Address City/[facility] Co de Phone Number [facility] [address] [place] [address] * (ABNORMAL) CBC (06/01/2025 12:00 AM EDT) WBC 5.4 3.4 - 10.8 x10E3/uL [facility] RBC 3.15(L) 3.77 - 5.28 x10E6/uL [facility] Hemoglobin 10.3(L) 11.1 - 15.9 g/dL [facility] Hematocrit 31.6(L) 34.0 - 46.6 % [facility] MCV 100(H) 79 - 97 fL [facility] MCH 32.7 26.6 - 33.0 pg [facility] MCHC 32.6 31.5 - 35.7 g/dL [facility] RDW 12.4 11.7 - 15.4 % [facility] Platelets 182 150 - 450 x10E3/uL [facility] 06/01/2025 06/01/2025 [facility] LAB BLOOD ORDERABLES Final Result Performing Organization Address City/[facility]/ZIP Co de Phone Number [facility] [address] [place] [address] * PTH, Intact (06/01/2025 12:00 AM EDT) PTH 25 15 - 65 pg/mL [facility] 06/01/2025 06/01/2025 Shonna OJEDA LAB BLOOD ORDERABLES Final Result [facility] [address] [place] [address] * (ABNORMAL) Renal Function Panel (06/01/2025 12:00 AM EDT) Pathologist [facility] Glucose 86 70 - 99 mg/dL [facility] BUN 21 8 - 27 mg/dL [facility] Creatinine 0.96 0.57 - 1.00 mg/dL [facility] eGFR CKD-EPI CR 2020 57(L) >59 mL/min/1.7 3 [facility] BUN/Creatinine Ratio 22 12 - 28 [facility] Sodium 137 134 - 144 mmol/L [facility] Potassium 4.7 3.5 - 5.2 mmol/L [facility] Chloride 102 96 - 106 mmol/L [facility] Bicarbonate (CO2) 21 20 - 29 mmol/L [facility] Calcium 9.3 8.7 - 10.3 mg/dL [facility] Albumin 3.8 3.7 - 4.7 g/dL [facility] Phosphorus 3.3 3.0 - 4.3 mg/dL [facility] 06/01/2025 06/01/2025 Shonna PERESP LAB BLOOD ORDERABLES Final Result [facility] [address] [place] [phone] from Last [address] [facility] Care Teams Baggage Checker Relationship Specialty Start Date End Date Michael Shepard MD [address] [place] [address] [place] [address] PCP - General 08/24/20
--- OUTSIDE RECORDS SUMMARY | 2025-08-16 14:44 | XMS_ITS | Clinical Summary ---
Author Organization [facility] Prior to 01/21/[address] [place] [address] Care Team Providers Care Suction Roller Name Role Phone Michael Shepard MD Primary [...] age to complete this topic Care Teams Suction Roller Relationship Specialty Start Date End Date Michael Shepard MD [address] [place] [address] Dr Carpio [address] [place] [address] [place] [address] PCP - General Internal Medicine 10/26/20
--- OUTSIDE RECORDS SUMMARY | 2025-08-16 14:44 | XMS_ITS | Encounter Summary ---
Author Organization [facility] Address [address] [facility] [address] [place] [address] Phone Care Team Providers Care Wind Science And Planning Name Role Phone Michael Shepard MD Primary Care Provider + Encounter Details Date Type Department Care Team (Late Contact Info) Description 03/07/2021 Orders Only [facility] [address] [facility] [address] [place] [phone] Kamini Uribe MA Anemia in chronic kidney [...] Support [facility] [address] [facility] [address] [place] [phone] 01/02/2026 3:00 PM EDT Office Visit [facility] [address] [phone] Librado ShonnaRUSTY [address] [phone] Scheduled Orders Name Type Priority [...] Primary documented in this encounter Care Teams Wind Science And Planning Relationship Specialty Start Date End Date Michael Shepard MD [address] [facility] [address] [place] [address] PCP - General 08/24/20 documented as of this encounter
--- OUTSIDE RECORDS SUMMARY | 2025-08-16 14:44 | XMS_ITS | Clinical Summary ---
Author Organization [facility] Address [address] [place] [address] Care Team Providers Care Meter Reader Chief Name Role Phone Pcp, No Primary Care [...] patient's age to complete this topic Insurance [address] [address] OUT OF [facility] - HMO Care Teams Meter Reader Chief Relationship Specialty Start Date End Date Pcp, No PCP - General General Medicine 11/18/22
--- NOTE | 2025-08-16 15:03 | MHC.OFFVIS ---
Intake Visit Reasons: 1 year follow up Allergies meperidine (From Demerol) Allergy (Severe, Verified 05/26/25 13:00) Nausea and Vomiting amoxicillin (AMOXICILLIN) Allergy (Intermediate, Verified 05/26/25 13:00) Rash cephalexin Allergy (Intermediate, Verified 05/26/25 13:00) Itching erythromycin base Allergy (Intermediate, Verified 05/26/25 13:00) Itching meloxicam Allergy (Intermediate, Verified 05/26/25 13:00) Abdominal Pain nitrofurantoin (From Macrobid) Allergy (Intermediate, Verified 05/26/25 13:00) Rash Penicillins Allergy (Intermediate, Verified 05/26/25 13:00) Rash Sulfa (Sulfonamide Antibiotics) (SULFA(SULFONAMIDE ANTIBIOTICS)) Allergy (Intermediate, Verified 05/26/25 13:00) Rash tramadol Allergy (Intermediate, Verified 05/26/25 13:00) Nausea and Vomiting codeine (CODEINE) Adverse Reaction (Intermediate, Verified 05/26/25 13:00) Nausea HPI Comments Details: 89 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 Her daughter reported that she started with these symptoms about a year ago and it was worsening. She was forgettting and repeating things. She was not depressed, or anxious, and did not have any more behavioral symptoms. She was drinking couple of glasses of wine a week. No change in personality. She lived in an assisted living facility in [place]. She is presenting for follow-up of cognitive decline and recent episodes of confusion. She resides in an assisted living facility and is independent with activities of daily living, such as using the bathroom by herself. She has experienced episodes of confusion, with one notable event occurring around Thanksgiving where she was disoriented for a significant part of the day, believing she was at a rest stop. A similar episode occurred approximately a month or two prior to that. These episodes are transient, as she was reportedly back to her normal baseline the day after the Thanksgiving event. Her medical history includes macular degeneration, for which she receives Iservay injections. She is taking donepezil, which was previously prescribed at 5 mg. Recent lab work showed a very high vitamin B12 level, despite not taking supplements recently. [facility] Medical History PONV (postoperative nausea and vomiting) COPD (chronic obstructive pulmonary disease) CHF (congestive heart failure) Macular degeneration Dementia HTN (hypertension) Breast cancer Atherosclerotic cardiovascular disease Coronary artery disease Anemia Aortic stenosis, severe Primary osteoarthritis involving multiple joints Osteoporosis Benign essential HTN Asthma Allergic rhinitis Surgical History History of acute cholecystitis S/P TAVR (transcatheter aortic valve replacement) S/P cardiac catheterization History of hand surgery History of heart artery stent History of laminectomy History of kyphoplasty History of cataract surgery History of D&C Family History Father Hypertension Mother Thyroid cancer Sister Breast cancer Social History Household Members: None Household Members Other:: assisted living [facility] Housing: Assisted Living Facility Housing Other:: [facility] Are you a primary aged or disabled carer to a significant other at home: No Do you presently have visiting nurse or other home services: No Alcohol intake: current Alcohol intake frequency: holidays/special occasions only Alcohol type: beer and wine Patient Tobacco Use Status: Former Tobacco user Tobacco use type: Cigarette Years Smoked: 5 e-Cigarette/Vaping Use: Never Used Second Hand Smoke Exposure: Yes Advance Directives Date on File: 02/06/21 service: No Current occupational status: retired Cognitive needs: Yes (walker/cane) Hearing needs: Yes (hearing aide) Vision needs: Yes (glasses) Review of Systems Narrative - Neurological: Reports intermittent episodes of confusion. - Psychiatric: Reports mood is up and down but denies depression. - Genitourinary: Reports bladder control is okay. - Constitutional: Reports sleep is fine. Physical Exam Neuro Other: Mental Status: She was alert and awake with normal spontaneity of speech fluency comprehension and anxious affect. Cranial Nerves: CN II: Visual crandall full to confrontation, visual acuity intact. CN III, IV, : Pupils equal, round, reactive to light and accommodation. Extraocular movements are normal. CN V: Facial sensation is normal. CN VII: Facial movements symmetrical. CN VIII: Hearing intact to bedside conversation is normal. CN IX, X: Palate elevates symmetrically. CN XI: Shoulder shrug and head turn symmetrical. CN XII: Tongue midline without atrophy or fasciculations. Motor: No obvious arm or leg weakness. Gait and Station: In wheelchair. Extrapyramidal: Full facial expressions and blinking. No rigidity. Movements are appropriate with no tremor or abnormality. Speech: Normal; no dysarthria or tremor. Assessment & Plan Assessment & Plan (1) Alzheimer dementia: Code(s): G30.9 - Alzheimer's disease, unspecified; F02.80 - Dementia in other diseases classified elsewhere, unspecified severity, without behavioral disturbance, psychotic disturbance, mood disturbance, and anxiety Category: Medical Qualifiers: Alzheimer's disease onset: late onset Dementia severity: moderate Dementia behavioral or psychological symptom: with anxiety Qualified Code(s): G30.1 - Alzheimer's disease with late onset; F02.B4 - Dementia in other diseases classified elsewhere, moderate, with anxiety Plan Impression: a: Moderate dementia probably of Alzheimer type b: Episodic confusion, ?seizure disorder Rec: a; EEG b: Donepezil 10mg daily I have discussed with the patient and her family the recent episodes of confusion. I explained that these events could be caused by abnormal electrical activity in the brain and recommended an EEG to investigate this possibility, noting that it is a fixable issue if found. I described the EEG procedure as painless and involving the placement of leads on her head. I recommended increasing her donepezil dose from 5 mg to 10 mg and instructed the family on how to adjust this in her pill container. I also reviewed her lab results, noting her vitamin B12 level is very high, and advised her to discontinue supplementation. The prescription for the new dose of donepezil was sent to her pharmacy, and my office will contact them to schedule the EEG. Orders: Orders EEG Routine Today G40.909 - Epilepsy, unspecified, not intractable, without status epilepticus Medications: New donepezil 10 mg PO BEDTIME 90 tabs 1RF Discontinued donepezil Discontinued Reason: Doctor's Order 5 mg PO DAILY 90 days 90 tabs 1RF Coding Level of Care Code Est Pt Level 4 (32891) Diagnoses Moderate late onset Alzheimer's dementia with anxiety G30.1; F02.B4 Alzheimer's disease onset: late onset Dementia severity: moderate Dementia behavioral or psychological symptom: with anxiety
== END 2025-08-16 15:16 | disposition home or self-care (01) ==
LOC: HO.HSM 14:41
PROVIDERS: Visit Provider Psychiatry & Neurology Neurology
DX: G30.1 Alzheimer's disease with late onset (principal); F02.B4 Dementia in other diseases classified elsewhere, moderate, with anxiety
CPT/HCPCS: 99214